=== PATIENT | female | born 1935 | race Caucasian/White ===

== ENCOUNTER → 2016-11-26 | Outpatient (CLI) | payer MEDICARE ==
--- NOTE | 2016-11-26 17:13 | MR ---
EXAMINATION TYPE: MR lumbar spine wo con DATE OF EXAM: 11/26/2016 COMPARISON: CT lumbar spine 03/05/2014, plain film 03/05/2014 graph HISTORY: low back pain x1 year, TECHNIQUE: Multiplanar, multisequence images of the lumbar spine were acquired. L1-L2: Normal disc appearance without desiccation. No herniation, protrusion or disc bulging. No ca nal stenosis is present. Foramina are patent bilaterally. L2-L3: Minimal posterior broad-based disc bulge causes slight anterior mass effect on the thecal sac. L3-L4: Minimal posterior broad-based disc bulge causes slight anterior mass effect on the thecal sac. There is some facet arthropathy with minimal encroachment on the lateral recesses. Scoliosis contrib utes to cause some right-sided foraminal encroachment. L4-L5: Listhesis is present, there is a minimal posterior broad-based disc bulge causing slight anter ior mass effect on the thecal sac. Listhesis contributes to cause some right-sided foraminal encroach ment also contributed by spinal curvature. Facet arthropathy with hypertrophy of ligamentum flavum ca uses some lateral recess stenosis. There is a trefoil appearance to the thecal sac. L5-S1: There is some facet arthropathy change present. No significant central canal stenosis, foramin al encroachment. Mild posterior broad-based disc bulge causes minimal anterior mass effect on the the delia sac. Lumbar segments are intact. No paraspinal masses are identified. Conus medullaris has a normal appe arance. Lumbar vertebral bodies show stable alignment, minimal anterolisthesis grade 1 L4-5. Loss of disc height and signal at the intervertebral levels is present with some associated endplate discogen ic marrow signal change. There is a spinal curvature. IMPRESSION: Degenerative disc disease and facet arthropathy. Scoliosis, multilevel foraminal encroachment.
== END | disposition home or self-care (01) ==
LOC: RADMRIMAIN 15:18
PROVIDERS: ATTEND Physician Assistant
DX: M51.36 Other intervertebral disc degeneration, lumbar region (principal); M41.86 Other forms of scoliosis, lumbar region; M46.06 Spinal enthesopathy, lumbar region
CPT/HCPCS: 72148

== ENCOUNTER 2017-07-04 19:27 | Inpatient (IN) | payer MEDICARE ==
[2017-07-04] MEDS ORDERED: RX INFO: IV CONTRAST WAS GIVEN 1 EACH MISC MISCELLANE PRN (19:40)
[2017-07-04] MEDS ORDERED: SODIUM CHLORIDE 0.9% 1,000 ML IV STA ×2 (19:40)
[2017-07-04 20:24] LABS: Glucose,Whole Blood 80 mg/dL (75-99)
[2017-07-04 20:25] LABS: Basophils % (A) 0 %; Eosinophils # (A) 0.2 k/uL (0-0.7); Eosinophils % (A) 2 %; HCT 33.9 % (34.0-46.0); HGB 10.8 gm/dL (11.4-16.0); Lymphocytes # (A) 1.4 k/uL (1.0-4.8); Lymphocytes % (A) 18 %; MCH 30.6 pg (25.0-35.0); MCHC 31.8 g/dL (31.0-37.0); MCV 96.3 fL (80.0-100.0); Mean Platelet Volume 8.7; Monocytes # (A) 0.7 k/uL (0-1.0); Monocytes % (A) 8 %; Neutrophils # (A) 5.8 k/uL (1.3-7.7); Neutrophils % (A) 71 %; Platelet Count 244 k/uL (150-450); RBC 3.52 m/uL (3.80-5.40); RDW 13.5 % (11.5-15.5); WBC 8.2 k/uL (3.8-10.6)
[2017-07-04 20:33] LABS: Partial Thromboplastin Time 22.6 sec (22.0-30.0); Prothrombin Time 10.2 sec (9.0-12.0)
--- NOTE | 2017-07-04 20:41 | ED ---
General Adult HPI - General Chief complaint: Neuro Symptoms/Deficit Stated complaint: memory problems Time Seen by Provider: 07/04/17 19:40 Source: patient, RN notes reviewed, old records reviewed Mode of arrival: ambulatory Limitations: no limitations - History of Present Illness Initial comments: This is an 82-year-old female the ER for evaluation of possible neurological event. Patient does have history of heart disease. Patient lay down for Nepro 4:00 woke up sometime later when she was is having some confusion she did awaken a panic which she occasionally does secondary to medical history stress. Patient was crying and emotional. She did feel lightheaded and dizzy. She became forgetful forgetful medications, although symptoms appear to have resolved at this time. Patient's awake alert no some she has she doesn't admit to having some anxiety and is tearful on exam - Related Data Home Medications Medication Instructions Recorded Confirmed Allopurinol 100 mg PO DAILY@1200 03/05/14 07/04/17 Aspirin 162 mg PO HS 03/05/14 07/04/17 Doxazosin Mesylate 4 mg PO DAILY 03/05/14 07/04/17 Omeprazole 40 mg PO DAILY PRN 03/05/14 07/04/17 Potassium Chloride [Klor-Con 20] 20 meq PO MOWEFR 03/05/14 07/04/17 LORazepam [Ativan] 1 mg PO DAILY PRN 09/23/14 07/04/17 Ascorbic Acid [Vitamin C] 500 mg PO DAILY@1200 09/24/14 07/04/17 Atorvastatin [Lipitor] 80 mg PO DAILY@1200 09/24/14 07/04/17 Cholecalciferol [Vitamin D3] 2,000 unit PO DAILY@119909/24/14 07/04/17 Ferrous Sulfate [Feosol] 0.5 tab PO DAILY 09/24/14 07/04/17 Nitroglycerin 0.2MG/Hr Patch 1 patch TRANSDERM Q24H PRN 09/24/14 07/04/17 [Nitro-Dur 0.2MG/Hr Patch] Furosemide [Lasix] 40 mg PO DAILY@1200 08/07/15 07/04/17 INSULIN LISPRO (HumaLOG) [humaLOG] 10 units SQ HS PRN 08/07/15 07/04/17 INSULIN LISPRO (HumaLOG) [humaLOG] 20 units SQ AC-TID 08/07/15 07/04/17 Losartan [Cozaar] 50 mg PO AC-SUPPER 08/07/15 07/04/17 Lidocaine HCl [Aspercreme] 76.5 gm TP DIRECTED PRN 08/27/15 07/04/17 Baclofen 5 mg PO HS 10/22/15 07/04/17 Acetaminophen [Tylenol 8 Hour] 650 mg PO HS 11/18/15 07/04/17 HYDROcodone/APAP 5-325MG [[place] 1 tab PO HS PRN 11/18/15 07/04/17 5-325] hydrALAZINE HCL [Apresoline] 100 mg PO BID 07/04/17 07/04/17 Allergies Allergy/AdvReac Type Severity Reaction Status Date / Time cortisone Allergy Rash/Hives Verified 07/04/17 20:00 Penicillins Allergy Rash/Hives Verified 07/04/17 20:00 Review of Systems ROS Statement: Those systems with pertinent positive or pertinent negative responses have been documented in the HPI. ROS Other: All systems not noted in ROS Statement are negative. Past Medical History Past Medical History: Coronary Artery Disease (CAD), Heart Failure, Diabetes Mellitus, GERD/Reflux, Hyperlipidemia, Hypertension, Myocardial Infarction (AL) , Osteoarthritis (OA), Pneumonia Additional Past Medical History / Comment(s): Hx Mitral regurgitation, anemia, reproductive problems when younger., NECK PAIN. Last Myocardial Infarction Date:: 08/2014 History of Any Multi-Drug Resistant Organisms: None Reported Past Surgical History: Cholecystectomy, Coronary Bypass/CABG, Hysterectomy Additional Past Surgical History / Comment(s): 8x D&C, CABG 7 Blockages, bilateral foot surgery to remove tumors Past Anesthesia/Blood Transfusion Reactions: No Reported Reaction Past Psychological History: No Psychological Hx Reported Smoking Status: Never smoker - Past Family History Mother Family Medical History: Cancer General Exam - General Exam Comments Initial Comments: NIH of 0 Limitations: no limitations General appearance: alert, in no apparent distress Head exam: Present: atraumatic, normocephalic, normal inspection Eye exam: Present: normal appearance, PERRL, EOMI. Absent: scleral icterus, conjunctival injection, periorbital swelling ENT exam: Present: normal exam, mucous membranes moist Neck exam: Present: normal inspection. Absent: tenderness, meningismus, lymphadenopathy Respiratory exam: Present: normal lung sounds bilaterally. Absent: respiratory distress, wheezes, rales, rhonchi, stridor Cardiovascular Exam: Present: regular rate, normal rhythm, normal heart sounds. Absent: systolic murmur, diastolic murmur, rubs, gallop, clicks GI/Abdominal exam: Present: soft, normal bowel sounds. Absent: distended, tenderness, guarding, rebound, rigid Extremities exam: Present: normal inspection, full ROM, normal capillary refill. Absent: tenderness, pedal edema, joint swelling, calf tenderness Back exam: Present: normal inspection Neurological exam: Present: alert, oriented X3, CN II-XII intact Psychiatric exam: Present: normal affect, normal mood Skin exam: Present: warm, dry, intact, normal color. Absent: rash Course Vital Signs 07/04/17 07/04/17 07/04/17 19:31 20:56 22:08 Temperature 98.7 F Pulse Rate 77 62 62 Respiratory 18 16 16 Rate Blood Pressure 157/67 157/67 196/93 O2 Sat by Pulse 98 99 98 Oximetry - Reevaluation(s) Reevaluation #1: 07/04/17 22:33 Patient with no worsening of symptoms EKG Findings - EKG Comments: EKG Findings:: EKG shows sinus bradycardia rate of 59, pO2 60, QRS 02, QTc 449 Medical Decision Making - Medical Decision Making Aortic female the ER for evaluation of strokelike symptoms, severe anxiety, atherosclerotic disease. Patient be admitted for continued neurological evaluation. Symptoms at this time are improved - Lab Data Result diagrams: 07/04/17 20:04 07/04/17 20:04 Lab Results 07/04/17 07/04/17 07/04/17 Range/Units 20:04 20:04 20:04 WBC 8.2 (3.8-10.6) k/uL RBC 3.52 L (3.80-5.40) m/uL Hgb 10.8 L (11.4-16.0) gm/dL Hct 33.9 L (34.0-46.0) % MCV 96.3 (80.0-100.0) fL MCH 30.6 (25.0-35.0) pg MCHC 31.8 (31.0-37.0) g/dL RDW 13.5 (11.5-15.5) % Plt Count 244 (150-450) k/uL Neutrophils % 71 % Lymphocytes % 18 % Monocytes % 8 % Eosinophils % 2 % Basophils % 0 % Neutrophils # 5.8 (1.3-7.7) k/uL Lymphocytes # 1.4 (1.0-4.8) k/uL Monocytes # 0.7 (0-1.0) k/uL Eosinophils # 0.2 (0-0.7) k/uL Basophils # 0.0 (0-0.2) k/uL PT (9.0-12.0) sec INR (<1.2) APTT (22.0-30.0) sec Sodium 145 (137-145) mmol/L Potassium 3.7 (3.5-5.1) mmol/L Chloride 108 H (98-107) mmol/L Carbon Dioxide 26 (22-30) mmol/L Anion Gap 11 mmol/L BUN 41 H (7-17) mg/dL Creatinine 1.30 H (0.52-1.04) mg/dL Est GFR (CKD-EPI)AfAm 45 (>60 ml/min/1.73 sqM) Est GFR (CKD-EPI)NonAf 39 (>60 ml/min/1.73 sqM) Glucose 55 L (74-99) mg/dL POC Glucose (mg/dL) (75-99) mg/dL POC Glu Bar Waiter/Waitress ID Calcium 9.5 (8.4-10.2) mg/dL Total Bilirubin 0.2 (0.2-1.3) mg/dL AST 16 (14-36) U/L ALT 18 (9-52) U/L Alkaline Phosphatase 71 (38-126) U/L Total Creatine Kinase 33 (30-135) U/L CK-MB (CK-2) 2.1 (0.0-2.4) ng/mL CK-MB (CK-2) Rel Index 6.4 Troponin I 0.023 (0.000-0.034) ng/mL Total Protein 5.6 L (6.3-8.2) g/dL Albumin 3.1 L (3.5-5.0) g/dL Urine Color Urine Appearance (Clear) Urine pH (5.0-8.0) Ur Specific Mittie (1.001-1.035) Urine Protein (Negative) Urine Glucose (UA) (Negative) Urine Ketones (Negative) Urine Blood (Negative) Urine Nitrite (Negative) Urine Bilirubin (Negative) Urine Urobilinogen (<2.0) mg/dL Ur Leukocyte Esterase (Negative) Urine WBC (0-5) /hpf Ur Squamous Epith Cells (0-4) /hpf Urine Bacteria (None) /hpf Hyaline Casts (0-2) /lpf Urine Mucus (None) /hpf 07/04/17 07/04/17 07/04/17 Range/Units 20:04 20:22 21:27 WBC (3.8-10.6) k/uL RBC (3.80-5.40) m/uL Hgb (11.4-16.0) gm/dL Hct (34.0-46.0) % MCV (80.0-100.0) fL MCH (25.0-35.0) pg MCHC (31.0-37.0) g/dL RDW (11.5-15.5) % Plt Count (150-450) k/uL Neutrophils % % Lymphocytes % % Monocytes % % Eosinophils % % Basophils % % Neutrophils # (1.3-7.7) k/uL Lymphocytes # (1.0-4.8) k/uL Monocytes # (0-1.0) k/uL Eosinophils # (0-0.7) k/uL Basophils # (0-0.2) k/uL PT 10.2 (9.0-12.0) sec INR 1.0 (<1.2) APTT 22.6 (22.0-30.0) sec Sodium (137-145) mmol/L Potassium (3.5-5.1) mmol/L Chloride (98-107) mmol/L Carbon Dioxide (22-30) mmol/L Anion Gap mmol/L BUN (7-17) mg/dL Creatinine (0.52-1.04) mg/dL Est GFR (CKD-EPI)AfAm (>60 ml/min/1.73 sqM) Est GFR (CKD-EPI)NonAf (>60 ml/min/1.73 sqM) Glucose (74-99) mg/dL POC Glucose (mg/dL) 80 (75-99) mg/dL POC Glu Bar Waiter/Waitress ID Nicolás Awan Calcium (8.4-10.2) mg/dL Total Bilirubin (0.2-1.3) mg/dL AST (14-36) U/L ALT (9-52) U/L Alkaline Phosphatase (38-126) U/L Total Creatine Kinase (30-135) U/L CK-MB (CK-2) (0.0-2.4) ng/mL CK-MB (CK-2) Rel Index Troponin I (0.000-0.034) ng/mL Total Protein (6.3-8.2) g/dL Albumin (3.5-5.0) g/dL Urine Color Yellow Urine Appearance Clear (Clear) Urine pH 5.0 (5.0-8.0) Ur Specific Mittie 1.009 (1.001-1.035) Urine Protein Negative (Negative) Urine Glucose (UA) Negative (Negative) Urine Ketones Negative (Negative) Urine Blood Negative (Negative) Urine Nitrite Negative (Negative) Urine Bilirubin Negative (Negative) Urine Urobilinogen <2.0 (<2.0) mg/dL Ur Leukocyte Esterase Small H (Negative) Urine WBC 4 (0-5) /hpf Ur Squamous Epith Cells <1 (0-4) /hpf Urine Bacteria Few H (None) /hpf Hyaline Casts 16 H (0-2) /lpf Urine Mucus Rare H (None) /hpf - Radiology Data Radiology results: report reviewed (CT CT significant for carotid stenosis), image reviewed Disposition Clinical Impression: Transient cerebral ischemia Disposition: ADMITTED IP TO THIS [facility] Condition: Fair Referrals: Leela Bill MD [Primary Care Provider] - 1-2 days
[2017-07-04 20:44] LABS: Albumin 3.1 g/dL (3.5-5.0); Calcium 9.5 mg/dL (8.4-10.2); Potassium 3.7 mmol/L (3.5-5.1); Total Bilirubin 0.2 mg/dL (0.2-1.3); Total Protein 5.6 g/dL (6.3-8.2)
--- NOTE | 2017-07-04 20:45 | CT ---
EXAMINATION: CT brain wo con for TPA DATE AND TIME: 07/04/2017 8:37 PM ORDERING PROVIDER: Elver Almanza DO CLINICAL INDICATION: Neuro Deficits TECHNIQUE: Standard departmental protocol. COMPARISON: 09/08/2011 DESCRIPTION: The calvarium is intact. There is no intracranial hemorrhage. There is no mass or mass e ffect. There is no definite new attenuation defect. Remainder of the intra-axial and extra-axial comp artment examination is unremarkable. The orbits are intact. IMPRESSION: NO ACUTE PROCESS.
--- NOTE | 2017-07-04 20:51 | XR ---
EXAMINATION: XR chest 2V DATE AND TIME: 07/04/2017 8:39 PM ORDERING PROVIDER: Elver Almanza DO CLINICAL INDICATION: altered mental status TECHNIQUE: PA and lateral COMPARISON: 09/25/2014 DESCRIPTION: Sternal sutures and mediastinal clips and EKG leads. [id number] enlarged cardiac silhouette. The overlying soft tissues are prominent. Lungs appear clear bilaterally. Pleural spaces negative. Bones and soft tissues are unremarkable. IMPRESSION: NO ACUTE PROCESS.
[2017-07-04 20:59] LABS: Creatine Kinase MB 2.1 ng/mL (0.0-2.4); Troponin I 0.023 ng/mL (0.000-0.034)
[2017-07-04 21:39] LABS: Appearance,Urine Clear (Clear); Bacteria,Urine Few /hpf; Bilirubin,Urine Negative (Negative); Blood,Urine Negative (Negative); Color,Urine Yellow; Glucose,Urine (UA) Negative (Negative); Hyaline Casts,Urine 16 /lpf (0-2); Ketones,Urine Negative (Negative); Leukocyte Esterase,Urine Small (Negative); Mucus,Urine Rare /hpf; Nitrite,Urine Negative (Negative); Protein,Urine Negative (Negative); Specific Gravity,Urine 1.009 (1.001-1.035); Squamous Epithelial Cell,Urine <1 /hpf (0-4); Urobilinogen,Urine <2.0 mg/dL (<2.0); WBC,Urine 4 /hpf (0-5)
--- NOTE | 2017-07-04 22:10 | CT ---
EXAMINATION TYPE: CT angio head neck DATE OF EXAM: 07/04/2017 HISTORY: Neuro deficits COMPARISON: NONE CT DLP: 307.1 mGycm. Automated Exposure Control for Dose Reduction was Utilized. TECHNIQUE: CTA scan of the neck is performed with IV Contrast, patient injected with 65 mL of Isovue 370, axial images are obtained, coronal and sagittal reformatted images are reviewed. Three-D recons tructed images are created on an independent workstation and reviewed. FINDINGS: The great vessels at the aortic arch are prominently tortuous but are widely patent. The bilateral ca rotid systems are tortuous throughout their cervical extent. There is a mid left CCA stenosis which a ppears to be just less than 50%. Bilateral carotid bulb stenoses are present, with proximal ICA steno sis appearing to be greater than 50% on the right and less than 50% on the left. The carotid siphon a re without significant stenoses bilaterally. Intracranial anterior circulation is without significant stenoses or other abnormalities. The bilateral vertebral arteries are widely patent throughout their cervical extent, and the intracra nial posterior circulation is widely patent. No intracranial findings. No focal soft tissue neck findings. No upper thoracic incidental findings. No focal skeletal findings. R ICA hemodynamic significant stenosis. IMPRESSION: 1. PROXIMAL RYAN HEMODYNAMICALLY SIGNIFICANT STENOSIS. 2. TANDEM LEFT CAROTID LESIONS, WITH MID CCA AND PROXIMAL ICA STENOSES.
[2017-07-04] MEDS ORDERED: LABETALOL 5 MG/ML VIAL MDV IVP STA (22:17)
[2017-07-04] MEDS ORDERED: LORazepam 2 MG/ML INJ IV STA (22:17)
[2017-07-04] MEDS ORDERED: ASPIRIN 325 MG TAB PO STA (22:31)
[2017-07-04] MEDS: SODIUM CHLORIDE 0.9% 1,000 ML IV SCH (23:32)
[2017-07-05 06:20] LABS: Glucose,Whole Blood 79 mg/dL (75-99)
[2017-07-05] MEDS ORDERED: PANTOPRAZOLE 40 MG TABLET PO PRN (06:50)
[2017-07-05] MEDS ORDERED: METHYL SALICYLATE/MENTHOL CREAM 5 OZ TOPICAL PRN (06:50)
[2017-07-05] MEDS ORDERED: HYDROcodone/APAP 5-325MG 1 EACH TAB PO PRN (06:50)
[2017-07-05 07:20] LABS: Cholesterol 127 mg/dL (<200); HDL Cholesterol 43 mg/dL (40-60); LDL Cholesterol,Calculated 56 mg/dL (0-99); Triglycerides 139 mg/dL (<150)
[2017-07-05 08:11] VITALS: BMI 35.5
[2017-07-05] MEDS: POTASSIUM CHLORIDE ER 20 MEQ TAB.ER PO SCH (08:29)
[2017-07-05] MEDS: ASPIRIN 325 MG TAB PO SCH (08:29)
[2017-07-05] MEDS: DOXAZOSIN 4 MG TAB PO SCH (08:29)
[2017-07-05] MEDS: INSULIN ASPART 100 UNIT/ML 1 ML 10 ML VIAL SQ SCH ×4 (08:29→21:12)
[2017-07-05] MEDS: hydrALAZINE HCL 50 MG TAB PO SCH ×2 (08:30→20:23)
[2017-07-05] MEDS: FERROUS SULFATE 325 MG TAB PO SCH (08:30)
[2017-07-05] MEDS: LORazepam 2 MG/ML INJ IV PRN (11:10)
[2017-07-05 11:29] LABS: Glucose,Whole Blood 174 mg/dL (75-99)
[2017-07-05] MEDS: FUROSEMIDE 40 MG TAB PO SCH (11:42)
[2017-07-05] MEDS: ALLOPURINOL 100 MG TAB PO SCH (11:42)
[2017-07-05] MEDS: CHOLECALCIFEROL 1,000 UNIT TAB PO SCH (11:42)
[2017-07-05] MEDS: ATORVASTATIN 80 MG TAB PO SCH (11:42)
[2017-07-05 17:14] LABS: Glucose,Whole Blood 167 mg/dL (75-99)
[2017-07-05] MEDS: LOSARTAN 50 MG TAB PO SCH (17:21)
--- NOTE | 2017-07-05 18:18 | P.HPIM ---
History of Present Illness H&P Date: 07/05/17 82 years old right-handed female with past medical history of coronary artery disease status post CABG in 2012 following a myocardial infarction, history of type 2 diabetes on insulin, hyperlipidemia, hypertension, history of cervical stenosis, back pain presents in with episode of confusion and disorientation that'll lasted few hours starting yesterday morning. According to the patient, she was trying to clean her house and was working for more than 8 hours in her closet and had some neck pain due to constant movement of her neck and hand. She was disoriented in the morning when she was unable to draw up the insulin or her diabetes in the morning. Since that symptoms lasted few hours patient has been insisted her to come to the ER. She denies any confusion since admission. She denies any motor or sensory deficit or any history of seizures. Patient denies any previous episodes of this before. Full she currently takes 160 mg of aspirin and Lipitor [address] brain was negative for any acute abnormality. Patient underwent CTA of the neck which suggested some mid left CCA stenosis less than 50% with proximal ICA stenosis greater than 50% on the right and less than 50% on the left. Vascular surgery consult placed. Continue patient on aspirin and Lipitor. EKG suggested sinus bradycardia with first-degree AV block. ST or T-wave abnormality suggesting inferior lateral ischemia. No previous EKG to compare. Labs suggestive of hemoglobin of 10.8, B UN 41, creatinine 1.3 with 16 hyaline cast. She received a liter of IV fluid. Lactic acid ordered. Echo ordered Review of Systems Constitutional: Denies chills, Denies fever, Denies lethargy, Denies malaise, Denies poor appetite, Denies weakness, Denies weight loss Eyes: denies decreased vision, denies diplopia, denies discharge, denies pain Ears: deny: decreased hearing Ears, nose, mouth and throat: Denies dental pain, Denies headache, Denies nasal discharge, Denies nose pain Cardiovascular: Denies chest pain, Denies decreased exercise tolerance, Denies edema, Denies high blood pressure, Denies irregular heart beat, Denies palpitations, Denies paroxysmal nocturnal dyspnea, Denies rapid heart beat, Denies shortness of breath Respiratory: Denies congestion, Denies cough, Denies cough with sputum, Denies dyspnea, Denies home oxygen, Denies wheezing Gastrointestinal: Denies abdominal pain, Denies change in bowel habits, Denies coffee ground emesis, Denies early satiety, Denies excessive gas, Denies heartburn, Denies hematemesis, Denies hematochezia, Denies loss of appetite, Denies nausea, Denies vomiting Genitourinary: Denies dysuria, Denies flank pain, Denies kidney stones, Denies menorrhagia, Denies urgency, Denies urinary frequency Musculoskeletal: Denies gait dysfunction, Denies limitation of motion, Denies morning stiffness, Denies muscle cramps Integumentary: Denies rash, Denies wounds, Denies brittle nails, Denies change in hair/nails, Denies darkening of skin Neurological: Denies balance difficulties, Denies change in speech, Denies double vision, Denies gait dysfunction, Denies loss of vision, Denies motor disturbance, Denies numbness, Denies paralysis, Denies paresthesias, Denies seizures Psychiatric: Denies anxiety, Denies depression Endocrine: Denies excessive sweating, Denies excessive thirst, Denies high blood sugars, Denies palpitations Hematologic/Lymphatic: Denies easy bruising, Denies lymphadenopathy Past Medical History Past Medical History: Coronary Artery Disease (CAD), Heart Failure, Diabetes Mellitus, GERD/Reflux, Hyperlipidemia, Hypertension, Myocardial Infarction (OK) , Osteoarthritis (OA), Pneumonia Additional Past Medical History / Comment(s): Hx Mitral regurgitation, anemia, reproductive problems when younger., NECK PAIN. Last Myocardial Infarction Date:: 08/2014 History of Any Multi-Drug Resistant Organisms: None Reported Past Surgical History: Cholecystectomy, Coronary Bypass/CABG, Hysterectomy Additional Past Surgical History / Comment(s): 8x D&C, CABG 7 Blockages, bilateral foot surgery to remove tumors Past Anesthesia/Blood Transfusion Reactions: No Reported Reaction Past Psychological History: No Psychological Hx Reported Smoking Status: Never smoker Past Alcohol Use History: Occasional Past Drug Use History: None Reported - Past Family History Mother Family Medical History: Cancer, Diabetes Mellitus Father Family Medical History: Congestive Heart Failure (CHF) Brother(s) Family Medical History: Cancer (Patient is lives with her , functionally active denies any need a walker or assistance) Medications and Allergies Home Medications Medication Instructions Recorded Confirmed Type Allopurinol 100 mg PO DAILY@1200 03/05/14 07/04/17 History Aspirin 162 mg PO HS 03/05/14 07/04/17 History Doxazosin Mesylate 4 mg PO DAILY 03/05/14 07/04/17 History Omeprazole 40 mg PO DAILY PRN 03/05/14 07/04/17 History Potassium Chloride [Klor-Con 20] 20 meq PO MOWEFR 03/05/14 07/04/17 History LORazepam [Ativan] 1 mg PO DAILY PRN 09/23/14 07/04/17 History Ascorbic Acid [Vitamin C] 500 mg PO DAILY@1200 09/24/14 07/04/17 History Atorvastatin [Lipitor] 80 mg PO DAILY@1200 09/24/14 07/04/17 History Cholecalciferol [Vitamin D3] 2,000 unit PO DAILY@1200 09/24/14 07/04/17 History Ferrous Sulfate [Feosol] 0.5 tab PO DAILY 09/24/14 07/04/17 History Nitroglycerin 0.2MG/Hr Patch 1 patch TRANSDERM Q24H PRN 09/24/14 07/04/17 History [Nitro-Dur 0.2MG/Hr Patch] Furosemide [Lasix] 40 mg PO DAILY@1200 08/07/15 07/04/17 History INSULIN LISPRO (HumaLOG) [humaLOG] 10 units SQ HS PRN 08/07/15 07/04/17 History INSULIN LISPRO (HumaLOG) [humaLOG] 20 units SQ AC-TID 08/07/15 07/04/17 History Losartan [Cozaar] 50 mg PO AC-SUPPER 08/07/15 07/04/17 History Lidocaine HCl [Aspercreme] 76.5 gm TP DIRECTED PRN 08/27/15 07/04/17 History Baclofen 5 mg PO HS 10/22/15 07/04/17 History Acetaminophen [Tylenol 8 Hour] 650 mg PO HS 11/18/15 07/04/17 History HYDROcodone/APAP 5-325MG [[place] 1 tab PO HS PRN 11/18/15 07/04/17 History 5-325] hydrALAZINE HCL [Apresoline] 100 mg PO BID 07/04/17 07/04/17 History Allergies Allergy/AdvReac Type Severity Reaction Status Date / Time cortisone Allergy Rash/Hives Verified 07/04/17 20:00 Penicillins Allergy Rash/Hives Verified 07/04/17 20:00 Physical Exam Vitals: Vital Signs Temp Pulse Pulse Resp BP BP Pulse Ox 07/05/17 17:05 62 16 201/72 97 07/05/17 15:33 97.2 F L 56 L 16 198/69 96 07/05/17 14:47 164/70 07/05/17 11:13 59 L 17 172/70 98 07/05/17 08:08 98 F 60 17 197/74 97 07/05/17 08:00 60 17 07/05/17 06:14 59 L 18 07/05/17 06:05 97.3 F L 59 L 18 194/81 95 07/05/17 02:28 56 L 18 175/74 07/05/17 00:20 73 18 179/78 96 07/04/17 22:08 62 16 196/93 98 07/04/17 20:56 62 16 157/67 99 07/04/17 19:31 98.7 F 77 18 157/67 98 Intake and Output 07/05/17 07/05/17 07/05/17 06:59 14:59 22:59 Intake Total 160 298 Balance 160 298 Intake: IV 160 Sodium Chloride 0.9% 1, 160 000 ml @ 20 mls/hr IV . Q24H [facility] Rx#:[id number] Oral 298 Other: Voiding Method Toilet Toilet Toilet # Voids 2 Weight 82.554 kg - Constitutional General appearance: cooperative, no acute distress, obese - EENT Eyes: anicteric sclerae, PERRLA, normal appearance ENT: hearing grossly normal - Neck Neck: no lymphadenopathy, normal ROM, no other, no rigidity, no stridor, no thyromegaly - Respiratory Respiratory: bilateral: CTA, negative: diminished, dullness, rales, rhonchi - Cardiovascular Rhythm: regular Heart sounds: normal: S1, S2 Abnormal Heart Sounds: 3+ systolic murmur, no diastolic murmur, no rub, no S3 Gallop, no S4 Gallop, no click, no other - Gastrointestinal General gastrointestinal: normal bowel sounds, soft - Integumentary Integumentary: no rash - Neurologic Neurologic: CNII-XII intact - Musculoskeletal Musculoskeletal: gait normal, strength equal bilaterally - Psychiatric Psychiatric: A&O x's 3, appropriate affect Results CBC & Chem 7: 07/04/17 20:04 07/04/17 20:04 Labs: Abnormal Lab Results - Last 24 Hours (Table) 07/04/17 07/04/17 07/04/17 Range/Units 20:04 20:04 21:27 RBC 3.52 L (3.80-5.40) m/uL Hgb 10.8 L (11.4-16.0) gm/dL Hct 33.9 L (34.0-46.0) % Chloride 108 H (98-107) mmol/L BUN 41 H (7-17) mg/dL Creatinine 1.30 H (0.52-1.04) mg/dL Glucose 55 L (74-99) mg/dL POC Glucose (mg/dL) (75-99) mg/dL Total Protein 5.6 L (6.3-8.2) g/dL Albumin 3.1 L (3.5-5.0) g/dL Ur Leukocyte Esterase Small H (Negative) Urine Bacteria Few H (None) /hpf Hyaline Casts 16 H (0-2) /lpf Urine Mucus Rare H (None) /hpf 07/05/17 07/05/17 Range/Units 11:17 17:09 RBC (3.80-5.40) m/uL Hgb (11.4-16.0) gm/dL Hct (34.0-46.0) % Chloride (98-107) mmol/L BUN (7-17) mg/dL Creatinine (0.52-1.04) mg/dL Glucose (74-99) mg/dL POC Glucose (mg/dL) 174 H 167 H (75-99) mg/dL Total Protein (6.3-8.2) g/dL Albumin (3.5-5.0) g/dL Ur Leukocyte Esterase (Negative) Urine Bacteria (None) /hpf Hyaline Casts (0-2) /lpf Urine Mucus (None) /hpf Thrombosis Risk Factor Assmnt - DVT/VTE Prophylaxis DVT/VTE Prophylaxis: Pharmacologic Prophylaxis ordered - Choose All That Apply Each Risk Factor Represents 3 Points: Age 75 years or older Thrombosis Risk Factor Assessment Total Risk Factor Score: 3 Thrombosis Risk Factor Assessment Level: Moderate Risk Assessment and Plan Plan: 1 acute episode of confusion and disorientation likely secondary to TIA other differential includes dehydration, vasovagal episode or exacerbation of her cervical stenosis. Continue aspirin and Lipitor 80 mg daily.Vascular surgery consult for carotid stenosis. acute respiratory failure: Secondary to pulmonary edema, pneumonia, COPD, acute congestive heart failure exacerbation and possible non-Q-wave [place]. 2. Acute kidney injury on chronic kidney disease with baseline creatinine between 1-1.3. Repeat CMP tomorrow status post 1000 IV fluid 3 systolic dysfunction congestive heart failure not in exacerbation continue losartan, Lasix 40 daily, atorvastatin, aspirin 4 possible non-Q-wave OK: EKG suggestive of inferior lateral myocardial infarction. Cardiology consult. Troponin ordered Echocardiogram ordered 5 Iron deficiency anemia iron studies ordered. Due to increasing B UN concern for GI bleed but patient denies any black stools. She takes iron sulfate, stool test might not be a great. We'll order fecal Test 6 type 2 diabetes on insulin: Patient was previously on 7030 insulin. Currently taking insulin lispro 3 times a day 20 units. In the hospitalizations only requiring 2 units with meals. Patient needs reinforcement and diabetic education and may benefit from continuous glucose monitoring as patient is having many hypoglycemic episodes during the hospital stay continue insulin sliding scale while in the hospital. 7 hypertension: Well controlled on metoprolol 25 mg twice a day losartan 25 mg daily and Cardura 4 mg a day continue amlodipine 5 mg a day as well and hydralazine 100 mg 3 times a day. 8 GI prophylaxis/GERD: [place] patient on omeprazole 20 mg daily. 9 hyperlipidemia: Still on Lipitor 80 mg daily. DVT prophylaxis Heparin every 12 CODE STATUS: Full code.
--- NOTE | 2017-07-05 18:49 | P.CNNES ---
History of Present Illness Consult date: 07/05/17 Reason for Consult: Patient admitted with dizziness and acute confusion. History of Present Illness: This patient is a 82-year-old right-handed white female was in her usual state of health until yesterday evening. Patient states she was attempting to use her insulin which she takes on a regular basis for treatment of her diabetes and apparently had a great deal of difficulty concentrating on how to load her syringe. Apparently she normally takes her insulin on a regular basis but yesterday became extremely confused and disoriented. She apparently knew she had to take her insulin but could not conceive how to draw up the insulin in the amount of insulin she was to be taking. She was able to contact her who was nearby who came to assist her. Apparently she was very distraught and was just not feeling well. She complained of generalized weakness and fatigue. Her decided to bring her to the emergency room yesterday for further evaluation. She was seen in the ER by Dr. Almanza. She was evaluated in the ER and appeared to be very tearful and anxious. Her NIH stroke scale was noted to be 0. She was sent for a computed tomography scan of the brain which revealed no acute abnormalities. She was also sent for a CTA angiogram of the head and neck which revealed proximal right ICA stenosis. This was felt to be significant. There was also tandem left carotid artery lesions in the mid common carotid and proximal left internal carotid artery. The patient states she has no previous history of any significant carotid artery disease. She states her total cholesterol has been treated aggressively by her primary care physician. She is currently taking Lipitor 80 mg daily. She has no previous history of TIA or stroke but does take daily 2 baby aspirins at night. Patient does have history of severe cervical stenosis and does undergo pain injections on a regular basis. She states this has not been of much help. She does have history of underlying anxiety disorder as well as possible panic attacks. She denies any new symptoms since admission to the hospital but her clinical history suggests possibility of TIA. Patient denies previous history of stroke. As noted her CAT scan of the brain came back negative for any acute abnormalities. We have recommended the patient to be admitted for full stroke evaluation as well as a vascular surgery consultation. She is to continue on aspirin therapy for secondary stroke prevention. Her overall prognosis at this time remains guarded. Review of Systems Constitutional: Denies chills, Denies fever Eyes: denies blurred vision, denies pain Ears, nose, mouth and throat: Denies headache, Denies sore throat Cardiovascular: Denies chest pain, Denies shortness of breath Respiratory: Denies cough Gastrointestinal: Denies abdominal pain, Denies diarrhea, Denies nausea, Denies vomiting Genitourinary: Denies dysuria, Denies hematuria Musculoskeletal: Denies myalgias Integumentary: Denies pruritus, Denies rash Neurological: Reports confusion, Reports memory loss, Reports vertigo, Denies numbness, Denies weakness Psychiatric: Denies anxiety, Denies depression Endocrine: Denies fatigue, Denies weight change Past Medical History Past Medical History: Coronary Artery Disease (CAD), Heart Failure, Diabetes Mellitus, GERD/Reflux, Hyperlipidemia, Hypertension, Myocardial Infarction ([place]) , Osteoarthritis (OA), Pneumonia Additional Past Medical History / Comment(s): Hx Mitral regurgitation, anemia, reproductive problems when younger., NECK PAIN. Last Myocardial Infarction Date:: 08/2014 History of Any Multi-Drug Resistant Organisms: None Reported Past Surgical History: Cholecystectomy, Coronary Bypass/CABG, Hysterectomy Additional Past Surgical History / Comment(s): 8x D&C, CABG 7 Blockages, bilateral foot surgery to remove tumors Past Anesthesia/Blood Transfusion Reactions: No Reported Reaction Past Psychological History: No Psychological Hx Reported Smoking Status: Never smoker Past Alcohol Use History: Occasional Past Drug Use History: None Reported - Past Family History Mother Family Medical History: Cancer Medications and Allergies Home Medications Medication Instructions Recorded Confirmed Type Allopurinol 100 mg PO DAILY@1200 03/05/14 07/04/17 History Aspirin 162 mg PO HS 03/05/14 07/04/17 History Doxazosin Mesylate 4 mg PO DAILY 03/05/14 07/04/17 History Omeprazole 40 mg PO DAILY PRN 03/05/14 07/04/17 History Potassium Chloride [Klor-Con 20] 20 meq PO MOWEFR 03/05/14 07/04/17 History LORazepam [Ativan] 1 mg PO DAILY PRN 09/23/14 07/04/17 History Ascorbic Acid [Vitamin C] 500 mg PO DAILY@1200 09/24/14 07/04/17 History Atorvastatin [Lipitor] 80 mg PO DAILY@1200 09/24/14 07/04/17 History Cholecalciferol [Vitamin D3] 2,000 unit PO DAILY@1200 09/24/14 07/04/17 History Ferrous Sulfate [Feosol] 0.5 tab PO DAILY 09/24/14 07/04/17 History Nitroglycerin 0.2MG/Hr Patch 1 patch TRANSDERM Q24H PRN 09/24/14 07/04/17 History [Nitro-Dur 0.2MG/Hr Patch] Furosemide [Lasix] 40 mg PO DAILY@1200 08/07/15 07/04/17 History INSULIN LISPRO (HumaLOG) [humaLOG] 10 units SQ HS PRN 08/07/15 07/04/17 History INSULIN LISPRO (HumaLOG) [humaLOG] 20 units SQ AC-TID 08/07/15 07/04/17 History Losartan [Cozaar] 50 mg PO AC-SUPPER 08/07/15 07/04/17 History Lidocaine HCl [Aspercreme] 76.5 gm TP DIRECTED PRN 08/27/15 07/04/17 History Baclofen 5 mg PO HS 10/22/15 07/04/17 History Acetaminophen [Tylenol 8 Hour] 650 mg PO HS 11/18/15 07/04/17 History HYDROcodone/APAP 5-325MG [[employer] 1 tab PO HS PRN 11/18/15 07/04/17 History 5-325] hydrALAZINE HCL [Apresoline] 100 mg PO BID 07/04/17 07/04/17 History Allergies Allergy/AdvReac Type Severity Reaction Status Date / Time cortisone Allergy Rash/Hives Verified 07/04/17 20:00 Penicillins Allergy Rash/Hives Verified 07/04/17 20:00 Physical Examination - Vital Signs Vital Signs: Vital Signs Temp Pulse Pulse Resp BP BP Pulse Ox 07/05/17 17:05 62 16 201/72 97 07/05/17 15:33 97.2 F L 56 L 16 198/69 96 07/05/17 14:47 164/70 07/05/17 11:13 59 L 17 172/70 98 07/05/17 08:08 98 F 60 17 197/74 97 07/05/17 08:00 60 17 07/05/17 06:14 59 L 18 07/05/17 06:05 97.3 F L 59 L 18 194/81 95 07/05/17 02:28 56 L 18 175/74 07/05/17 00:20 73 18 179/78 96 07/04/17 22:08 62 16 196/93 98 07/04/17 20:56 62 16 157/67 99 07/04/17 19:31 98.7 F 77 18 157/67 98 Intake and Output 07/05/17 07/05/17 07/05/17 06:59 14:59 22:59 Intake Total 160 298 360 Balance 160 298 360 Intake: IV 160 Sodium Chloride 0.9% 1, 160 000 ml @ 20 mls/hr IV . Q24H [facility] Rx#:[id number] Oral 298 360 Other: Voiding Method Toilet Toilet Toilet # Voids 2 Weight 82.554 kg - Constitutional General appearance: average body habitus, cooperative - EENT EENT: PERRL, mucous membranes moist - Respiratory Respiratory: lungs clear, normal breath sounds - Cardiovascular Cardiovascular: regular rate, normal S1, normal S2 Extremities: no peripheral edema bilaterally - Gastrointestinal Gastrointestinal: normoactive bowel sounds - Integumentary Integumentary: normal - Neurologic Cranial nerve examination: PERRL, EOMI, VFF, V1/V2/V3 grossly intact, face symmetric, tongue midline, intact gag reflex, intact corneal reflex, normal palatal elevation Speech examination: intact Sensorimotor examination: intact Motor examination - right side: 4/5: biceps, triceps, wrist flexion, wrist extension, mds rn, hip flexors, knee extensors, dorsiflexion, toe extension (EHL) , plantarflexion Motor examination - left side: 4/5: biceps, triceps, wrist flexion, wrist extension, mds rn, hip flexors, knee extensors, dorsiflexion, toe extension (EHL) , plantarflexion Detailed sensory examination: intact Reflex and gait examination: intact Reflexes: 1+: ankle, bicep, knee, tricep - Musculoskeletal Musculoskeletal: no pain - Psychiatric Psychiatric: mood/affect appropriate, cooperative Results - Laboratory Findings CBC and BMP: 07/04/17 20:04 07/04/17 20:04 Abnormal Lab Findings: Abnormal Labs 07/04/17 07/04/17 07/04/17 20:04 20:04 21:27 RBC 3.52 L Hgb 10.8 L Hct 33.9 L Chloride 108 H BUN 41 H Creatinine 1.30 H Glucose 55 L POC Glucose (mg/dL) Total Protein 5.6 L Albumin 3.1 L Ur Leukocyte Esterase Small H Urine Bacteria Few H Hyaline Casts 16 H Urine Mucus Rare H 07/05/17 07/05/17 11:17 17:09 RBC Hgb Hct Chloride BUN Creatinine Glucose POC Glucose (mg/dL) 174 H 167 H Total Protein Albumin Ur Leukocyte Esterase Urine Bacteria Hyaline Casts Urine Mucus Assessment and Plan (1) Transient cerebral ischemia Current Visit: Yes Status: Acute Code(s): G45.9 - TRANSIENT CEREBRAL ISCHEMIC ATTACK, UNSPECIFIED SNOMED Code(s): 820429475 (2) Carotid artery stenosis Current Visit: Yes Status: Acute Code(s): I65.29 - OCCLUSION AND STENOSIS OF UNSPECIFIED CAROTID ARTERY SNOMED Code(s): 08093715 (3) Anxiety disorder Current Visit: Yes Status: Acute Code(s): F41.9 - ANXIETY DISORDER, UNSPECIFIED SNOMED Code(s): 270236049 (4) Hyperlipidemia Current Visit: Yes Status: Acute Code(s): E78.5 - HYPERLIPIDEMIA, UNSPECIFIED SNOMED Code(s): 99078236 Plan: This patient is a 82-year-old female being evaluated for episode of dizziness and acute confusion. Patient was trying to take her insulin yesterday as usual and became suddenly very confused and disoriented. She is unable to draw up her insulin by herself which she normally does on a regular basis. She was able to get help from her . She just did not feel well and complained of generalized weakness and was very emotional. She was brought into the emergency room and was seen in the ER yesterday by Dr. Almanza. She underwent a computed tomography scan of the brain and CTA angiogram of the head and neck the results which are noted above. Patient states she has no previous history of similar episode of confusion. Her CAT scan of the brain was negative for any acute findings. CTA angiogram of the head and neck did reveal significant right carotid artery stenosis. There was also left ICA stenosis noted as well. Clinical history suggests possibility of acute TIA producing her symptoms. We have recommended a vascular surgery consultation for the patient. She is to continue on 2 aspirin daily for secondary stroke prevention. We will continue close neurological follow-up for the patient. Recommend to check her hemoglobin A1c and total cholesterol as risk factors for TIA and stroke. Case was discussed at length with the patient today bedside. All of her questions answered. She is aware of our recommendations and current treatment plan. We will continue close neurological follow-up for the patient during this admission. Time with Patient: Greater than 30
[2017-07-05] MEDS: ACETAMINOPHEN TAB 325 MG TAB PO SCH (20:23)
[2017-07-05 21:03] LABS: Glucose,Whole Blood 197 mg/dL (75-99)
[2017-07-05] MEDS: SODIUM CHLORIDE 0.9% 1,000 ML IV SCH (23:07)
[2017-07-06 04:11] LABS: Cholesterol 111 mg/dL (<200); HDL Cholesterol 43 mg/dL (40-60); LDL Cholesterol,Calculated 49 mg/dL (0-99); Triglycerides 96 mg/dL (<150)
[2017-07-06 07:01] LABS: Glucose,Whole Blood 155 mg/dL (75-99)
[2017-07-06] MEDS ORDERED: NITROGLYCERIN SL TABS 0.4 MG TAB SUBLINGUAL ONE (07:52)
[2017-07-06] MEDS ORDERED: amLODIPine 5 MG TAB PO STA (08:03)
[2017-07-06] MEDS: LORazepam 2 MG/ML INJ IV PRN (08:13)
[2017-07-06] MEDS: SODIUM CHLORIDE 0.9% 1,000 ML IV SCH (08:14)
[2017-07-06] MEDS: hydrALAZINE HCL 50 MG TAB PO SCH ×3 (08:23→20:27)
[2017-07-06] MEDS: DOXAZOSIN 4 MG TAB PO SCH (08:23)
[2017-07-06] MEDS: FERROUS SULFATE 325 MG TAB PO SCH (08:23)
[2017-07-06] MEDS: ASPIRIN 325 MG TAB PO SCH (08:23)
[2017-07-06] MEDS: INSULIN ASPART 100 UNIT/ML 1 ML 10 ML VIAL SQ SCH ×4 (10:58→20:35)
[2017-07-06] MEDS ORDERED: cloNIDine HCL 0.1 MG TAB PO SCH (11:00)
[2017-07-06 11:17] LABS: Iron Saturation 20.46 (12.00-45.00)
--- NOTE | 2017-07-06 11:29 | ECHOF ---
Referral Reason:tia MEASUREMENTS -------- HEIGHT: 152.4 cm WEIGHT: 83.5 kg BP: 142/62 IVSd: 1.6 cm (0.6 - 1.1) LVIDd: 3.7 cm (3.9 - 5.3) LVPWd: 1.9 cm (0.6 - 1.1) IVSs: 2.8 cm LVIDs: 2.0 cm LVPWs: 2.2 cm LAESV Index (A-L): 67.07 ml/m Ao Diam: 3.3 cm (2.0 - 3.7) AV Cusp: 1.4 cm (1.5 - 2.6) LA Diam: 4.0 cm (2.7 - 3.8) MV EXCURSION: 15.271 mm (> 18.000) MV EF SLOPE: 33 mm/s (70 - 150) EPSS: 0.3 cm MV E Paco: 1.52 m/s MV DecT: 272 ms MV A Paco: 1.11 m/s MV E/A Ratio: 1.37 AV maxP.95 mmHg AV meanP.29 mmHg RAP: 5.00 mmHg RVSP: 21.01 mmHg FINDINGS -------- Sinus rhythm. This was a technically good study. The left ventricular size is normal. There is severe concentric left ventricular hypertrophy. Ove rall left ventricular systolic function is normal with, an EF between 55 - 60 %. The right ventricle is normal in size and function. LA is severely dilated >40 ml/m2 The right atrium is normal in size. Aortic valve is trileaflet and is mildly thickened. There is mild aortic stenosis present. Peak/m kit gradient across the Aortic Valve is 23.95mmHg / 13.29mmHg. The mitral valve leaflets are mildly thickened. Moderate mitral annular calcification present. Mi ld mitral regurgitation is present. The peak and mean MV gradients are 13.18mmHg 4.68mmHg as measu red by doppler. Mild mitral stenosis. There is moderate thickening of the posterior mitral valve leaflet. Moderate tricuspid regurgitation present. The right ventricular systolic pressure, as measured by D oppler, is 21.01mmHg. Pulmonic valve appears structurally normal. The aortic root size is normal. Normal inferior vena cava with normal inspiratory collapse consistent with estimated right atrial pre ssure of 5 mmHg. There is a trivial pericardial effusion present. CONCLUSIONS -------- 1. Sinus rhythm. 2. This was a technically good study. 3. The left ventricular size is normal. 4. There is severe concentric left ventricular hypertrophy. 5. Overall left ventricular systolic function is normal with, an EF between 55 - 60 %. 6. The right ventricle is normal in size and function. 7. LA is severely dilated >40 ml/m2 8. The right atrium is normal in size. 9. Aortic valve is trileaflet and is mildly thickened. 10. There is mild aortic stenosis present. 11. Peak/mean gradient across the Aortic Valve is 23.95mmHg / 13.29mmHg. 12. The mitral valve leaflets are mildly thickened. 13. Moderate mitral annular calcification present. 14. Mild mitral regurgitation is present. 15. The peak and mean MV gradients are 13.18mmHg 4.68mmHg as measured by doppler. 16. Mild mitral stenosis. 17. There is moderate thickening of the posterior mitral valve leaflet. 18. Moderate tricuspid regurgitation present. 19. The right ventricular systolic pressure, as measured by Doppler, is 21.01mmHg. 20. Pulmonic valve appears structurally normal. 21. The aortic root size is normal. 22. Normal inferior vena cava with normal inspiratory collapse consistent with estimated right atrial pressure of 5 mmHg. 23. There is a trivial pericardial effusion present. [employer] LEVEL [employer] DEVELOPER: Kasandra Francois RDCS
[2017-07-06] MEDS: ATORVASTATIN 80 MG TAB PO SCH (11:34)
[2017-07-06] MEDS: ALLOPURINOL 100 MG TAB PO SCH (11:34)
[2017-07-06] MEDS: CHOLECALCIFEROL 1,000 UNIT TAB PO SCH (11:35)
[2017-07-06] MEDS: FUROSEMIDE 40 MG TAB PO SCH (11:35)
[2017-07-06 11:55] LABS: Hemoglobin A1C 6.3 % (4.0-6.0)
[2017-07-06 12:09] LABS: Glucose,Whole Blood 188 mg/dL (75-99)
[2017-07-06] MEDS ORDERED: cloNIDine HCL 0.1 MG TAB PO STA (12:34)
--- NOTE | 2017-07-06 12:43 | CONS ---
CONSULTATION This is 82-year-old elderly lady with a history of hypertension, type 2 diabetes, hyperlipidemia, CAD, prior bypass surgery in year 2011. The details of the bypass surgery are not available to me. The cardiac cath from [address] Sim suggests that patient has a 90% stenosis in a dominant RCA as well as a circumflex with a 60% to 70% stenosis and the LAD had a 95% stenosis, a long lesion in the proximal and mid section and also involved the origins of the diagonal branches. Patient did have surgery and details are she had a HOLGUIN to LAD and vein graft to the diagonal and another vein graft to the RCA branch. She also had another separate graft to the circumflex marginal as well. She came into the hospital mainly because of an episode of confusion. Apparently last evening around 5:30 or so, she was trying to take insulin, could not get her blood drawn. She felt confused, shaky and her tried to help, but he also was not able to do that and then she came into the hospital. Her blood sugar was 55. She was confused and disoriented. These symptoms have resolved. She did not have any motor deficits or any speech deficits. It appears the entire episode with a blood sugar of 55 on arrival to the emergency room suggests hypoglycemia as the overriding feature. However, a diagnosis of TIA has been entertained. She also had elevated blood pressure when she came in. A combination of accelerated hypertension and hypoglycemia may have caused her symptoms of confusion, which have been resolved since then. She has no motor deficit. She is resting comfortably. Answers questions appropriately. Blood sugar this morning is about 105 or so. She is resting comfortably without symptoms. I was asked to see her because of the elevated troponin. She did complain yesterday of some chest pressure and shortness of breath. She is pain free at this time. Her last stress test was performed sometime in 2014 or so. At the time of my evaluation, she is a bit agitated, wishes to go home and she is actually all dressed up but has no chest pain or shortness of breath. PAST MEDICAL HISTORY: 1. Type 2 diabetes mellitus. 2. Hypertension with somewhat suboptimal control. 3. Coronary artery disease with prior bypass surgery. 4. History of hyperlipidemia. MEDICATIONS: At home include losartan, insulin, hydralazine, Lasix 40 mg daily, vitamin supplements, aspirin and she also takes atorvastatin 80 mg daily. She has been also taking some potassium supplements and omeprazole. ALLERGIES: She is allergic to CORTISONE and PENICILLIN. On examination, when I first saw her, pressure was about 210/114. We gave her sublingual nitroglycerin, Norvasc and hydralazine and the systolic came down to 190 and the diastolic was about 80 or so. Pulse rate was about 70 beats per minute. EKG revealed a sinus mechanism with inferolateral ST-T wave changes which are seen diffusely, but these changes are not new. There were also noted in 2015 as well. Physical exam revealed bilateral carotid bruit, JVD of 1 cm. There is no thyromegaly. Heart exam reveals S1, S2 heard normally with ejection systolic murmur at the base and left sternal border. Lungs reveal bilateral decent air entry. Abdomen is soft, nontender. Lower extremities reveal diminished pulses. No edema. Central nervous system is normal. LABORATORY DATA: Revealed that the third troponin is 0.037. The initial two were 0.02 and 0.02. IMPRESSION: 1. Accelerated hypertension. 2. Episode of hypoglycemia causing confusion. 3. I do not believe this is a transient ischemic attack-type picture. 4. CT angiography revealed noncritical disease in the carotid system and vertebrals were widely patent. 5. Coronary artery disease with prior bypass surgery without evidence of ongoing myocardial ischemia. Troponin elevation needs to be further followed. 6. History of type 2 diabetes mellitus. 7. Hyperlipidemia. RECOMMENDATION: I am recommending that we keep the patient in the hospital, optimize blood pressure control, obtain additional troponins and echocardiogram and based on this, I will make further recommendations. Discussed my thoughts in detail with the patient and . MMODL / IJN: [id number] /
[2017-07-06 13:25] LABS: Albumin 3.1 g/dL (3.5-5.0); Calcium 9.8 mg/dL (8.4-10.2); Total Bilirubin 0.5 mg/dL (0.2-1.3); Total Protein 5.6 g/dL (6.3-8.2)
--- NOTE | 2017-07-06 14:04 | CONS ---
CONSULTATION This is an 82-year-old, pleasant female. Patient came with history of confusion and dizziness and she has been admitted to [facility]. Patient had a CT scan of the carotid which showed right side 50% stenosis. The patient has no history of TIA and no history of any motor deficit. MEDICAL HISTORY: 1. History of coronary artery bypass graft done in the past. 2. History of diabetes. 3. History of hypertension. PHYSICAL EXAMINATION: Patient was seen in her room. Her neck is supple. No bruit appreciated. Chest is clear to auscultation. First and second sounds normal. Abdomen is soft, nontender. Vascular examination, brachial radial femoral pulses are present. CENTRAL NERVOUS SYSTEM: Oriented to time and place. Normal motor function. CT scan showed 50% occlusion of the right internal carotid artery with history of confusion. We have checked the lab. Her blood sugar was low when she came in to 50s, most likely her symptoms are from hypoglycemia. At this point, since patient has no history of TIA and she has a carotid stenosis, she does not need any surgical intervention. Will follow with you. When she is discharged, I will follow up in my office for carotid stenosis. Thank you very much for this. MMODL / IJN: [id number] /
[2017-07-06] MEDS: SPIRONOLACTONE 25 MG TAB PO SCH ×2 (14:23→20:27)
[2017-07-06] MEDS ORDERED: cloNIDine HCL 0.2 MG TAB PO SCH ×2 (16:00→21:00)
[2017-07-06 17:54] LABS: Glucose,Whole Blood 144 mg/dL (75-99)
--- NOTE | 2017-07-06 18:10 | P.PN ---
Subjective Progress Note Date: 07/06/17 82 years old right-handed female with past medical history of coronary artery disease status post CABG in 2012 following a myocardial infarction, history of type 2 diabetes on insulin, hyperlipidemia, hypertension, history of cervical stenosis, back pain presents in with episode of confusion and disorientation that'll lasted few hours starting yesterday morning. According to the patient, she was trying to clean her house and was working for more than 8 hours in her closet and had some neck pain due to constant movement of her neck and hand. She was disoriented in the morning when she was unable to draw up the insulin or her diabetes in the morning. Since that symptoms lasted few hours patient has been insisted her to come to the ER. She denies any confusion since admission. She denies any motor or sensory deficit or any history of seizures. Patient denies any previous episodes of this before. Full she currently takes 160 mg of aspirin and Lipitor [address] brain was negative for any acute abnormality. Patient underwent CTA of the neck which suggested some mid left CCA stenosis less than 50% with proximal ICA stenosis greater than 50% on the right and less than 50% on the left. Vascular surgery consult placed. Continue patient on aspirin and Lipitor. EKG suggested sinus bradycardia with first-degree AV block. ST or T-wave abnormality suggesting inferior lateral ischemia. No previous EKG to compare. Labs suggestive of hemoglobin of 10.8, B UN 41, creatinine 1.3 with 16 hyaline cast. She received a liter of IV fluid. Lactic acid ordered. Echo ordered 07/06 patient is asymptomatic. Blood pressure still high despite being on hydralazine, clonidine, Norvasc, doxazosin and losartan and Lasix. Patient initiated on spider lactone. Green renin level and aldosterone levels ordered. Renal ultrasound ordered to look for renal artery hypertension. Patient has history of coronary artery disease and many renal artery stenosis might be the reason for patient's resistant hypertension. Objective - Vital Signs Vital signs: Vital Signs Temp 97.4 F L 07/06/17 16:00 Pulse 61 07/06/17 16:00 Resp 18 07/06/17 16:00 BP 181/76 07/06/17 16:00 Pulse Ox 99 07/06/17 16:00 Intake & Output 07/05/17 07/06/17 07/06/17 18:59 06:59 18:59 Intake Total 658 240 Balance 658 240 Weight 82.554 kg 83.6 kg Intake: Oral 658 240 Other: Voiding Method Toilet Toilet Toilet # Voids 3 - Exam - Constitutional General appearance: cooperative, no acute distress, obese - EENT Eyes: anicteric sclerae, PERRLA, normal appearance ENT: hearing grossly normal - Neck Neck: no lymphadenopathy, normal ROM, no other, no rigidity, no stridor, no thyromegaly - Respiratory Respiratory: bilateral: CTA, negative: diminished, dullness, rales, rhonchi - Cardiovascular Rhythm: regular Heart sounds: normal: S1, S2 Abnormal Heart Sounds: 3+ systolic murmur, no diastolic murmur, no rub, no S3 Gallop, no S4 Gallop, no click, no other - Gastrointestinal General gastrointestinal: normal bowel sounds, soft - Integumentary Integumentary: no rash - Neurologic Neurologic: CNII-XII intact - Musculoskeletal Musculoskeletal: gait normal, strength equal bilaterally - Psychiatric Psychiatric: A&O x's 3, appropriate affect - Labs CBC & Chem 7: 07/04/17 20:04 07/06/17 09:16 Labs: Abnormal Lab Results - Last 24 Hours (Table) 07/05/17 07/06/17 07/06/17 Range/Units 21:01 03:21 03:21 Chloride (98-107) mmol/L Carbon Dioxide (22-30) mmol/L BUN (7-17) mg/dL Glucose (74-99) mg/dL POC Glucose (mg/dL) 197 H (75-99) mg/dL Hemoglobin A1c 6.3 H (4.0-6.0) % Troponin I 0.039 H* (0.000-0.034) ng/mL Total Protein (6.3-8.2) g/dL Albumin (3.5-5.0) g/dL 07/06/17 07/06/17 07/06/17 Range/Units 06:58 09:16 09:16 Chloride 111 H (98-107) mmol/L Carbon Dioxide 21 L (22-30) mmol/L BUN 32 H (7-17) mg/dL Glucose 134 H (74-99) mg/dL POC Glucose (mg/dL) 155 H (75-99) mg/dL Hemoglobin A1c (4.0-6.0) % Troponin I 0.037 H* (0.000-0.034) ng/mL Total Protein 5.6 L (6.3-8.2) g/dL Albumin 3.1 L (3.5-5.0) g/dL 07/06/17 07/06/17 07/06/17 Range/Units 11:31 12:07 17:51 Chloride (98-107) mmol/L Carbon Dioxide (22-30) mmol/L BUN (7-17) mg/dL Glucose (74-99) mg/dL POC Glucose (mg/dL) 188 H 144 H (75-99) mg/dL Hemoglobin A1c (4.0-6.0) % Troponin I 0.036 H* (0.000-0.034) ng/mL Total Protein (6.3-8.2) g/dL Albumin (3.5-5.0) g/dL Assessment and Plan Plan: 1 acute episode of confusion and disorientation likely secondary to TIA other differential includes dehydration, vasovagal episode or exacerbation of her cervical stenosis. Continue aspirin and Lipitor 80 mg daily.Vascular surgery consult for carotid stenosis. 2. Acute kidney injury on chronic kidney disease with baseline creatinine between 1-1.3. Repeat CMP tomorrow status post 1000 IV fluid 3 systolic dysfunction congestive heart failure not in exacerbation continue losartan, Lasix 40 daily, atorvastatin, aspirin 4 possible non-Q-wave KS: EKG suggestive of inferior lateral myocardial infarction. Cardiology consult. Troponin ordered Echocardiogram ordered 5 Iron deficiency anemia iron studies ordered. Due to increasing B UN concern for GI bleed but patient denies any black stools. She takes iron sulfate, stool test might not be a great. We'll order fecal Test 6 type 2 diabetes on insulin: Patient was previously on 7030 insulin. Currently taking insulin lispro 3 times a day 20 units. In the hospitalizations only requiring 2 units with meals. Patient needs reinforcement and diabetic education and may benefit from continuous glucose monitoring as patient is having many hypoglycemic episodes during the hospital stay continue insulin sliding scale while in the hospital. 7. Resistant hypertension:losartan 50 mg daily and Cardura 4 mg a day continue amlodipine 5 mg a twice a day as well and hydralazine 100 mg 3 times a day. Initiated on clonidine 0.2 mg twice a day along with Spirnolactone 8 GI prophylaxis/GERD: Rafael patient on omeprazole 20 mg daily. 9 hyperlipidemia: Still on Lipitor 80 mg daily. DVT prophylaxis Heparin every 12 CODE STATUS: Full code.
[2017-07-06] MEDS: LOSARTAN 50 MG TAB PO SCH (18:27)
[2017-07-06 20:15] LABS: Glucose,Whole Blood 188 mg/dL (75-99)
[2017-07-06] MEDS: ACETAMINOPHEN TAB 325 MG TAB PO SCH (20:26)
[2017-07-06] MEDS: amLODIPine 5 MG TAB PO SCH (20:27)
[2017-07-07] MEDS: SODIUM CHLORIDE 0.9% 1,000 ML IV SCH ×2 (00:37→06:10)
[2017-07-07] MEDS: POTASSIUM CHLORIDE ER 20 MEQ TAB.ER PO SCH (06:33)
[2017-07-07 06:53] LABS: Glucose,Whole Blood 181 mg/dL (75-99)
[2017-07-07] MEDS ORDERED: LOSARTAN 50 MG TAB PO SCH ×2 (07:37→09:00)
[2017-07-07 07:51] LABS: Basophils % (A) 0 %; Eosinophils # (A) 0.3 k/uL (0-0.7); Eosinophils % (A) 6 %; HCT 30.4 % (34.0-46.0); HGB 9.5 gm/dL (11.4-16.0); Lymphocytes % (A) 19 %; MCH 30.4 pg (25.0-35.0); MCHC 31.2 g/dL (31.0-37.0); MCV 97.6 fL (80.0-100.0); Mean Platelet Volume 8.6; Monocytes # (A) 0.5 k/uL (0-1.0); Monocytes % (A) 8 %; Neutrophils # (A) 3.7 k/uL (1.3-7.7); Neutrophils % (A) 66 %; Platelet Count 221 k/uL (150-450); RBC 3.12 m/uL (3.80-5.40); RDW 13.5 % (11.5-15.5); WBC 5.6 k/uL (3.8-10.6)
[2017-07-07 08:06] LABS: Calcium 9.7 mg/dL (8.4-10.2); Potassium 4.1 mmol/L (3.5-5.1)
[2017-07-07] MEDS: DOXAZOSIN 4 MG TAB PO SCH (09:39)
[2017-07-07] MEDS: ASPIRIN 325 MG TAB PO SCH (09:39)
[2017-07-07] MEDS: hydrALAZINE HCL 50 MG TAB PO SCH (09:39)
[2017-07-07] MEDS: amLODIPine 5 MG TAB PO SCH (09:39)
[2017-07-07] MEDS: SPIRONOLACTONE 25 MG TAB PO SCH (09:39)
[2017-07-07] MEDS: FERROUS SULFATE 325 MG TAB PO SCH (09:39)
[2017-07-07] MEDS: INSULIN ASPART 100 UNIT/ML 1 ML 10 ML VIAL SQ SCH ×2 (09:40→13:56)
[2017-07-07] MEDS ORDERED: LORazepam 1 MG TAB PO PRN (09:50)
[2017-07-07 12:10] LABS: Glucose,Whole Blood 186 mg/dL (75-99)
[2017-07-07] MEDS ORDERED: MINOXIDIL 10 MG TAB PO ONE (12:29)
[2017-07-07] MEDS ORDERED: LORazepam 0.5 MG TAB PO PRN (13:04)
--- NOTE | 2017-07-07 13:15 | US ---
EXAMINATION TYPE: US renal artery duplex complet DATE OF EXAM: 07/07/2017 COMPARISON: NONE CLINICAL HISTORY: r/o renal artery stenosis . Controlled HTN for years. Accelerated HTN for the last 3 days since admitted into hospital MEASUREMENTS: RENAL SIZE: Rt Kidney: 9.7 x 3.6 x 4.0cm Lt Kidney: 10.3 x 4.6 x 4.6cm RESISTANCE INDEX Right: 0.70 Left: 0.75 RA/AO RATIO (< 3.5 ) Right: 1.5 Left: 0.9 RA VELOCITY ( < 180 cm/s) Right: 259.0cm/s Left: 158.5cm/s IMPRESSION: *technical limitations due to large amount of overlying bowel content. Calcifications noted throughou t aorta. Fullness to left renal pelvis. Velocities appear elevated at proximal right renal artery. Di fficult to evaluate left renal artery due to overlying bowel, no evidence of elevated velocities as v isualized. Low resistive waveforms noted throughout
[2017-07-07] MEDS: CHOLECALCIFEROL 1,000 UNIT TAB PO SCH (13:37)
[2017-07-07] MEDS: FUROSEMIDE 40 MG TAB PO SCH (13:37)
[2017-07-07] MEDS: ALLOPURINOL 100 MG TAB PO SCH (13:37)
[2017-07-07] MEDS: ATORVASTATIN 80 MG TAB PO SCH (13:38)
[2017-07-07 16:06] VITALS: BP 196/56; PULSE 58; RESP 17; TEMP 97.8
[2017-07-07] MEDS ORDERED: LORazepam 1 MG TAB PO SCH (21:00)
--- NOTE | 2017-07-08 05:35 | PN ---
PROGRESS NOTE This is an elderly lady who came into the hospital with a TIA. Clinical picture does not suggest TIA. In my opinion, it is probably a combination of accelerated hypertension and hypoglycemia. Her blood pressure control is better, but not totally optimal. I am recommending that we use a combination of clonidine and Norvasc as well as hydralazine. Blood pressure, if it is improved, she can be discharged later on today. I have considered minoxidil, but I decided not to pursue it. Vital signs are stable. Blood pressure at the time of my evaluation was actually 160/80. S1 and S2 heard normally. Systolic murmur is audible at the base. Lungs are clear. Abdomen and lower extremity exam is unchanged. Plan is to continue current medications, increase activity. If blood pressure is better, she can be discharged and I will be happy to see her in the office in the next 2 to 3 weeks. MMODL / IJN: [id number] /
--- NOTE | 2017-07-08 13:47 | P.DS ---
Providers Date of admission: 07/06/17 14:20 Expected date of discharge: 07/07/17 Attending physician: Leela Bill Consults: 07/05/17 08:37 Consult Physician Routine Consulting Provider: Licha Byrne Consult Reason/Comments: TIA Do you want consulting provider notified?: Yes 07/05/17 19:40 Consult Physician Routine Consulting Provider: Sneha Franco Consult Reason/Comments: TIA, with EKG changes Do you want consulting provider notified?: Yes 07/06/17 08:00 Consult Physician Routine Consulting Provider: Frankie Barillas Consult Reason/Comments: Right carotid artery stenosis and TIA. Do you want consulting provider notified?: Yes Primary care physician: Leela Bill Hospital Course: 82 years old right-handed female with past medical history of coronary artery disease status post CABG in 2011 following a myocardial infarction, history of type 2 diabetes on insulin, hyperlipidemia, hypertension, history of cervical stenosis, back pain presents in with episode of confusion and disorientation that'll lasted few hours starting yesterday morning. According to the patient, she was trying to clean her house and was working for more than 8 hours in her closet and had some neck pain due to constant movement of her neck and hand. She was disoriented in the morning when she was unable to draw up the insulin or her diabetes in the morning. Since that symptoms lasted few hours patient has been insisted her to come to the ER. She denies any confusion since admission. She denies any motor or sensory deficit or any history of seizures. Patient denies any previous episodes of this before. Full she currently takes 160 mg of aspirin and Lipitor [address] brain was negative for any acute abnormality. Patient underwent CTA of the neck which suggested some mid left CCA stenosis less than 50% with proximal ICA stenosis greater than 50% on the right and less than 50% on the left. Vascular surgery consult placed. Continue patient on aspirin and Lipitor. EKG suggested sinus bradycardia with first-degree AV block. ST or T-wave abnormality suggesting inferior lateral ischemia. No previous EKG to compare. Labs suggestive of hemoglobin of 10.8, B UN 41, creatinine 1.3 with 16 hyaline cast. She received a liter of IV fluid. Lactic acid ordered. Echo ordered 07/06 patient is asymptomatic. Blood pressure still high despite being on hydralazine, clonidine, Norvasc, doxazosin and losartan and Lasix. Patient initiated on Aldactone. Green renin level and aldosterone levels ordered. Renal ultrasound ordered to look for renal artery hypertension. Patient has history of coronary artery disease and many renal artery stenosis might be the reason for patient's resistant hypertension. 07/07: Patient has been seen by Dr. Barillas for carotid stenosis 50% on the right with no plan for any surgical intervention. Patient is to follow in the office. Echocardiogram reveals EF of 55-60% with severe concentric left ventricular hypertrophy, LA severely dilated greater than 40, mild aortic stenosis, moderate mitral calcification, mild mitral regurgitation, moderate tricuspid regurgitation. Patient has been seen by Dr. Castillo. Renal artery duplex revealed limitations due to large amount of overlying bowel content. Calcifications throughout the aorta. Fullness of the left renal pelvis. Velocities appear elevated at proximal right renal artery. Difficult to evaluate left renal artery due to overlying bowel. No evidence of elevated velocities. Low resistant waveforms noted throughout. Patient's blood pressure remained elevated this morning. She denies any dizziness lightheadedness or chest pain. New medications include Norvasc, Cozaar, Aldactone. Patient will need follow-up with nephrology for renal vascular hypertension. Discharge diagnoses: 1. Acute episode of confusion and disorientation likely secondary accelerated hypertension and hypoglycemia. 2. Acute kidney injury on chronic kidney disease with baseline creatinine between 1-1.3. 3. Chronic systolic heart failure not in exacerbation 4. 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 Possible non-Q-wave [place] ruled out 6. Anemia of chronic disease. 7. Diabetes mellitus type 2 insulin requiring 8. GERD 9. Hyperlipidemia Discharge plan: Return home Impression and plan of care have been directed as dictated by the signing physician. Talia Schneider nurse practitioner acting as scribe for signing physician. Patient Condition at Discharge: Good Plan - Discharge Summary Discharge Rx Participant: Yes New Discharge Prescriptions: New amLODIPine [Norvasc] 5 mg PO BID #60 tab Losartan [Cozaar] 100 mg PO DAILY #120 tab Spironolactone [Aldactone] 25 mg PO BID #60 tab Potassium Citrate [Potassium Citrate ER] 20 meq PO MOWEFR #1 tablet.er Continue Omeprazole 40 mg PO DAILY PRN PRN Reason: Heartburn Aspirin 162 mg PO HS Allopurinol 100 mg PO DAILY@1200 Doxazosin Mesylate 4 mg PO DAILY LORazepam [Ativan] 1 mg PO DAILY PRN PRN Reason: Anxiety Nitroglycerin 0.2MG/Hr Patch [Nitro-Dur 0.2MG/Hr Patch] 1 patch TRANSDERM Q24H PRN PRN Reason: Chest Pain Ferrous Sulfate [Feosol] 0.5 tab PO DAILY Cholecalciferol [Vitamin D3] 2,000 unit PO DAILY@1200 Ascorbic Acid [Vitamin C] 500 mg PO DAILY@1200 Atorvastatin [Lipitor] 80 mg PO DAILY@1200 Furosemide [Lasix] 40 mg PO DAILY@1200 INSULIN LISPRO (HumaLOG) [humaLOG] 20 units SQ AC-TID INSULIN LISPRO (HumaLOG) [humaLOG] 10 units SQ HS PRN PRN Reason: if hs snack taken Lidocaine HCl [Aspercreme] 76.5 gm TP DIRECTED PRN PRN Reason: Pain Baclofen 5 mg PO HS Acetaminophen [Tylenol 8 Hour] 650 mg PO HS HYDROcodone/APAP 5-325MG [[place] 5-325] 1 tab PO HS PRN PRN Reason: Pain hydrALAZINE HCL [Apresoline] 100 mg PO BID Discontinued Potassium Chloride [Klor-Con 20] 20 meq PO MOWEFR Losartan [Cozaar] 50 mg PO AC-SUPPER Discharge Medication List Allopurinol 100 mg PO DAILY@1200 03/05/14 [History] Aspirin 162 mg PO HS 03/05/14 [History] Doxazosin Mesylate 4 mg PO DAILY 03/05/14 [History] Omeprazole 40 mg PO DAILY PRN 03/05/14 [History] LORazepam [Ativan] 1 mg PO DAILY PRN 09/23/14 [History] Ascorbic Acid [Vitamin C] 500 mg PO DAILY@1200 09/24/14 [History] Atorvastatin [Lipitor] 80 mg PO DAILY@1200 09/24/14 [History] Cholecalciferol [Vitamin D3] 2,000 unit PO DAILY@119909/24/14 [History] Ferrous Sulfate [Feosol] 0.5 tab PO DAILY 09/24/14 [History] Nitroglycerin 0.2MG/Hr Patch [Nitro-Dur 0.2MG/Hr Patch] 1 patch TRANSDERM Q24H PRN 09/24/14 [History] Furosemide [Lasix] 40 mg PO DAILY@119908/07/15 [History] INSULIN LISPRO (HumaLOG) [humaLOG] 10 units SQ HS PRN 08/07/15 [History] INSULIN LISPRO (HumaLOG) [humaLOG] 20 units SQ AC-TID 08/07/15 [History] Lidocaine HCl [Aspercreme] 76.5 gm TP DIRECTED PRN 08/27/15 [History] Baclofen 5 mg PO HS 10/22/15 [History] Acetaminophen [Tylenol 8 Hour] 650 mg PO HS 11/18/15 [History] HYDROcodone/APAP 5-325MG [[place] 5-325] 1 tab PO HS PRN 11/18/15 [History] hydrALAZINE HCL [Apresoline] 100 mg PO BID 07/04/17 [History] Losartan [Cozaar] 100 mg PO DAILY #120 tab 07/07/17 [Rx] Potassium Citrate [Potassium Citrate ER] 20 meq PO MOWEFR #1 tablet.er 07/07/17 [Rx] Spironolactone [Aldactone] 25 mg PO BID #60 tab 07/07/17 [Rx] amLODIPine [Norvasc] 5 mg PO BID #60 tab 07/07/17 [Rx] Follow up Appointment(s)/Referral(s): Leela Bill MD [Primary Care Provider] - 1-2 Days Demetrius Diana MD [STAFF PHYSICIAN] - 1 Week (Appointment made for July 13 @ 4:00pm.) Patient Instructions/Handouts: Hypertension (DC) Discharge Disposition: HOME SELF-CARE
--- NOTE | 2017-07-13 09:15 | CDI ---
Documentation Clarification Form Date: 07/13/17 CDS/Lead Level Designer Name: Jennifer Fernando Yary Anthony, Skidway Worker between 8:30 am & 5 pm M-F Admit Date: 07/06/17 Discharge Date: 07/07/17 ATTENTION: The Clinical Documentation Specialists (CDI) and [facility] Coding Staff appreciate your assistance in clarifying documentation. Please respond to the clarification below the line at the bottom and electronically sign. The CDI & [facility] Coding staff will review the response and follow-up if needed. Please note: Queries are made part of the Legal Health Record. If you have any questions, please contact the author of this message via ITS. Dr. Mathew Amaral, Accelerated hypertension was documented on Dr Anderson consult and 07/08 PN and DS. 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 Clinical Indicators: B/P: 157/67, 157/67, 196/93 Left BP readings: 175/74, 194/81, 197/74, 172/70, 164/70,198/69, 201/ 72, 160/63, 154/68, 177/74, 142/62, 234/124, 220/114, 224/78, 190/60, 198/79, 195/96, 181 /76, 179/78, 181/56 Right BP readings: 217/70, 191/79, 196/56 Treatment: Hydralazine, clonidine, norvasc, doxazosin, losartan and lasix In order to capture the severity of condition, please document and specify the appropriate condition: Hypertensive Emergency Hypertensive Urgency Other Condition, please specify Unable to determine Diagnosis Clinical Indicators Hypertensive Urgency SBP > 180 or DBP > 120 without symptoms or with headache Hypertensive Emergency SBP > 180 or DBP > 120 with chest pain or end organ damage Hypertensive encephalopathy, retinal hemorrhages, papilledema, RALPH Please document in your progress notes and discharge summary in order to capture severity of illness and risk of mortality. Include clinical findings that support your diagnosis. MTDD
--- NOTE | 2017-07-13 09:33 | CDI ---
Last Revision, March 2017 Documentation Clarification Form Date: 07/13/17 From: Jennifer Abdullahi Yary Anthony, Skating Carhop between 8:30 am & 5 pm [place] Admit Date: 07/06/2017 2:20:00 PM Patient Name: Rochelle Sainz Visit Number: [id number] Discharge Date: 07/07/17 ATTENTION: The Clinical Documentation Specialists (CDI) and [facility] Coding Staff appreciate your assistance in clarifying documentation. Please respond to the clarification below the line at the bottom and electronically sign. The CDI & [facility] Coding staff will review the response and follow-up if needed. Please note: Queries are made part of the Legal Health Record. If you have any questions, please contact the author of this message via ITS. Dr. Mathew Amaral History/Risk Factors:renovascular HTN Clinical Indicators: acute episode of confusion and disorientation, ARF Current BUN: 41, 32, 32 Current CR: 1.30, .86, .92 Current GFR: 39, 64, 59 Patients Baseline: CR: between 1-1.3 Treatment: IV fluids, control Htn Patients medications include: Allopuinol, Vit C, ASA, Lipitor, Baclofen, Vit D3 , Doxazosin Mesylate, Feosol, Lasix, Apresoline, [place], Humalog, Ativan, Nitro- Dur, Omeprazole, Klor-Con In order to capture the severity of condition, please clarify if the condition signifies: CKD Stage 1 (GFR > 90) CKD Stage 2 (GFR 60-89) CKD Stage 3 (GFR 30-59) CKD Stage 4 (GFR 15-29) CKD Stage 5 (GFR <15) ESRD Other, please specify Unable to determine Please continue to document in your progress notes and discharge summary in order to capture severity of illness and risk of mortality. Include clinical findings that support your diagnosis. MTDD
== END 2017-07-07 16:55 | disposition home or self-care (01) | DRG 305 ==
LOC: EC 19:27 → 6SEL 22:31 → 4MS4W 07-05 21:44 → 3OBS 07-06 00:51 → OBSVTOIN 07-06 14:20
PROVIDERS: ADMIT Internal Medicine; ATTEND Internal Medicine
DX: I15.0 Renovascular hypertension (principal); N17.9 Acute kidney failure, unspecified; E11.649 Type 2 diabetes mellitus with hypoglycemia without coma; E11.22 Type 2 diabetes mellitus with diabetic chronic kidney disease; I50.22 Chronic systolic (congestive) heart failure; I16.0 Hypertensive urgency; E86.0 Dehydration; I08.3 Combined rheumatic disorders of mitral, aortic and tricuspid valves; M48.02 Spinal stenosis, cervical region; I70.1 Atherosclerosis of renal artery; I65.21 Occlusion and stenosis of right carotid artery; N18.3 Chronic kidney disease, stage 3 (moderate); D63.8 Anemia in other chronic diseases classified elsewhere; I11.0 Hypertensive heart disease with heart failure; I44.0 Atrioventricular block, first degree; I25.10 Atherosclerotic heart disease of native coronary artery without angina pectoris; K21.9 Gastro-esophageal reflux disease without esophagitis; E78.5 Hyperlipidemia, unspecified; I25.2 Old myocardial infarction; M19.91 Primary osteoarthritis, unspecified site; F41.9 Anxiety disorder, unspecified; M54.9 Dorsalgia, unspecified; Z79.82 Long term (current) use of aspirin; Z79.4 Long term (current) use of insulin; Z79.899 Other long term (current) drug therapy; Z87.01 Personal history of pneumonia (recurrent); Z88.0 Allergy status to penicillin; Z88.8 Allergy status to other drugs, medicaments and biological substances; Z90.49 Acquired absence of other specified parts of digestive tract; Z95.1 Presence of aortocoronary bypass graft; Z90.710 Acquired absence of both cervix and uterus; Z82.49 Family history of ischemic heart disease and other diseases of the circulatory system; Z83.3 Family history of diabetes mellitus; Z80.9 Family history of malignant neoplasm, unspecified
CPT/HCPCS: 36415; 70450; 70496; 70498; 71046; 80048; 80053; 80061; 81001; 82088; 82550; 82553; 82728; 83036; 83540; 83550; 84244; 84484; 85025; 85610; 85730; 93005; 93306; 93975; 96361; 96374; 96375; 96376; 99285

== ENCOUNTER 2017-09-16 01:31 | Inpatient (IN) | payer MEDICARE ==
[2017-09-16] MEDS ORDERED: SODIUM CHLORIDE 0.9% 1,000 ML IV STA (01:48)
[2017-09-16 01:57] LABS: Basophils % (A) 0 %; Eosinophils # (A) 0.3 k/uL (0-0.7); Eosinophils % (A) 5 %; HCT 29.9 % (34.0-46.0); HGB 9.5 gm/dL (11.4-16.0); Lymphocytes # (A) 1.5 k/uL (1.0-4.8); Lymphocytes % (A) 22 %; MCH 31.7 pg (25.0-35.0); MCHC 31.9 g/dL (31.0-37.0); MCV 99.3 fL (80.0-100.0); Macrocytosis Slight; Mean Platelet Volume 8.5; Monocytes # (A) 0.6 k/uL (0-1.0); Monocytes % (A) 9 %; Neutrophils # (A) 4.3 k/uL (1.3-7.7); Neutrophils % (A) 62 %; Platelet Count 240 k/uL (150-450); RBC 3.01 m/uL (3.80-5.40); RDW 14.3 % (11.5-15.5); WBC 6.9 k/uL (3.8-10.6)
[2017-09-16 02:08] LABS: Albumin 3.4 g/dL (3.5-5.0); Calcium 9.5 mg/dL (8.4-10.2); Magnesium 2.1 mg/dL (1.6-2.3); Total Bilirubin 0.4 mg/dL (0.2-1.3); Total Protein 5.7 g/dL (6.3-8.2)
[2017-09-16 02:11] LABS: Partial Thromboplastin Time 22.6 sec (22.0-30.0); Prothrombin Time 9.6 sec (9.0-12.0)
[2017-09-16 02:20] LABS: D-Dimer 2.46 mg/L FEU (<0.60)
[2017-09-16 02:30] LABS: Creatine Kinase MB 2.3 ng/mL (0.0-2.4); Troponin I 0.023 ng/mL (0.000-0.034)
[2017-09-16 02:32] LABS: Glucose,Whole Blood 63 mg/dL (75-99)
--- NOTE | 2017-09-16 02:40 | XR ---
EXAMINATION TYPE: XR chest 2V DATE OF EXAM: 09/16/2017 COMPARISON: 07/04/2017 HISTORY: Chest pain TECHNIQUE: Frontal and lateral views of the chest are obtained. FINDINGS: Heart is enlarged. There is no gross heart failure. Lungs are clear of consolidation. Ther e are sternal wires. There are chest leads. Bony thorax is intact. IMPRESSION: Cardiomegaly. No active cardiopulmonary disease. No change.
[2017-09-16] MEDS ORDERED: ENOXAPARIN 60 MG/0.6 ML SYRINGE SQ STA (02:44)
[2017-09-16] MEDS ORDERED: DEXTROSE 50%-WATER 50 ML SYRINGE IVP STA (02:52)
[2017-09-16 03:16] LABS: Glucose,Whole Blood 81 mg/dL (75-99)
[2017-09-16] MEDS ORDERED: NITROGLYCERIN SL TABS 0.4 MG TAB SUBLINGUAL PRN (03:24)
[2017-09-16] MEDS ORDERED: ACETAMINOPHEN TAB 325 MG TAB PO PRN (03:24)
--- NOTE | 2017-09-16 03:24 | ED ---
Chest Pain HPI - General Chief Complaint: Chest Pain Stated Complaint: CHEST PAIN Time Seen by Provider: 09/16/17 01:41 Source: patient Mode of arrival: EMS Limitations: no limitations - History of Present Illness Initial Comments: 82 years old female with history of coronary artery disease, congestive heart failure, diabetes, hyperlipidemia, hypertension, myocardial infarction and heart valve disease present with a chest pain ongoing for 24 hours she said chest pain is worse with a deep breaths and also complaining about severe cramps in her both proximal legs she is she had a nitro patch that helped with the chest pain. Review of system is unremarkable otherwise - Related Data Home Medications Medication Instructions Recorded Confirmed Allopurinol 100 mg PO DAILY@1200 03/05/14 07/04/17 Aspirin 162 mg PO HS 03/05/14 07/04/17 Doxazosin Mesylate 4 mg PO DAILY 03/05/14 07/04/17 Omeprazole 40 mg PO DAILY PRN 03/05/14 07/04/17 LORazepam [Ativan] 1 mg PO DAILY PRN 09/23/14 07/04/17 Ascorbic Acid [Vitamin C] 500 mg PO DAILY@1200 09/24/14 07/04/17 Atorvastatin [Lipitor] 80 mg PO DAILY@1200 09/24/14 07/04/17 Cholecalciferol [Vitamin D3] 2,000 unit PO DAILY@1200 09/24/14 07/04/17 Ferrous Sulfate [Feosol] 0.5 tab PO DAILY 09/24/14 07/04/17 Nitroglycerin 0.2MG/Hr Patch 1 patch TRANSDERM Q24H PRN 09/24/14 07/04/17 [Nitro-Dur 0.2MG/Hr Patch] Furosemide [Lasix] 40 mg PO DAILY@1200 08/07/15 07/04/17 INSULIN LISPRO (HumaLOG) [humaLOG] 10 units SQ HS PRN 08/07/15 07/04/17 INSULIN LISPRO (HumaLOG) [humaLOG] 20 units SQ AC-TID 08/07/15 07/04/17 Lidocaine HCl [Aspercreme] 76.5 gm TP DIRECTED PRN 08/27/15 07/04/17 Baclofen 5 mg PO HS 10/22/15 07/04/17 Acetaminophen [Tylenol 8 Hour] 650 mg PO HS 11/18/15 07/04/17 HYDROcodone/APAP 5-325MG [[place] 1 tab PO HS PRN 11/18/15 07/04/17 5-325] hydrALAZINE HCL [Apresoline] 100 mg PO BID 07/04/17 07/04/17 Previous Rx's Medication Instructions Recorded Losartan [Cozaar] 100 mg PO DAILY #120 tab 07/07/17 Potassium Citrate [Potassium 20 meq PO MOWEFR #1 tablet.er 07/07/17 Citrate ER] Spironolactone [Aldactone] 25 mg PO BID #60 tab 07/07/17 amLODIPine [Norvasc] 5 mg PO BID #60 tab 07/07/17 Allergies Allergy/AdvReac Type Severity Reaction Status Date / Time cortisone Allergy Rash/Hives Verified 09/16/17 01:40 Penicillins Allergy Rash/Hives Verified 09/16/17 01:40 Review of Systems ROS Statement: Those systems with pertinent positive or pertinent negative responses have been documented in the HPI. ROS Other: All systems not noted in ROS Statement are negative. EKG Findings - EKG Comments: EKG Findings:: and lead aVF and inversion of T-wave in V4 V5 and V6 this EKG was compared with EKG from June 2017 there were no significant changes Past Medical History Past Medical History: Coronary Artery Disease (CAD), Heart Failure, Diabetes Mellitus, GERD/Reflux, Hyperlipidemia, Hypertension, Myocardial Infarction (CT) , Osteoarthritis (OA), Pneumonia Additional Past Medical History / Comment(s): Hx Mitral regurgitation, anemia, reproductive problems when younger., NECK PAIN. Last Myocardial Infarction Date:: 08/2014 History of Any Multi-Drug Resistant Organisms: None Reported Past Surgical History: Cholecystectomy, Coronary Bypass/CABG, Hysterectomy Additional Past Surgical History / Comment(s): 8x D&C, CABG 7 Blockages, bilateral foot surgery to remove tumors Past Anesthesia/Blood Transfusion Reactions: No Reported Reaction Past Psychological History: No Psychological Hx Reported Smoking Status: Never smoker Past Alcohol Use History: Occasional Past Drug Use History: None Reported - Past Family History Mother Family Medical History: Cancer, Diabetes Mellitus Father Family Medical History: Congestive Heart Failure (CHF) Brother(s) Family Medical History: Cancer (Patient is lives with her , functionally active denies any need a walker or assistance) General Exam - General Exam Comments Initial Comments: General: The patient is awake and alert, in no distress, and does not appear acutely ill. Skin: Skin is warm and dry and no rashes or lesions are noted. Eye: Pupils are equal, round and reactive to light, extra-ocular movements are intact; there is normal conjunctiva bilaterally. Ears, nose, mouth and throat: There are moist mucous membranes and no oral lesions. Neck: The neck is supple, there is no tenderness or JVD. Cardiovascular: There is a regular rate and rhythm. Respiratory for over 6 pansystolic murmur on the left parasternal area Respiratory: To auscultation bilateral, no wheezing no rhonchi no distress respiratory herndon noticed Gastrointestinal: Soft, non-distended, non-tender abdomen without masses or organomegaly noted. There is no rebound or guarding present. Bowel sounds are unremarkable. Back: There is no tenderness to palpation in the midline. There is no obvious deformity. Musculoskeletal: Normal ROM, no tenderness, There is no pedal edema. There is no calf tenderness or swelling. No cords were appreciated. She is tender in the posterior proximal thighs bilateral Neurological: CN II-XII intact, Cranial nerves III through XII are intact. There are no obvious motor or sensory deficits. Coordination appears grossly intact. Speech is normal. Psychiatric: Cooperative, appropriate mood & affect, normal judgment. Limitations: no limitations Course Vital Signs 09/16/17 09/16/17 09/16/17 01:37 01:47 02:23 Temperature 97.0 F L Pulse Rate 59 L 61 Pulse Rate [ 56 L Salvage Engineer ] Respiratory 15 18 Rate Blood Pressure 153/68 150/62 O2 Sat by Pulse 99 98 Oximetry 09/16/17 02:57 Temperature Pulse Rate 52 L Pulse Rate [ Salvage Engineer ] Respiratory 17 Rate Blood Pressure 155/77 O2 Sat by Pulse 99 Oximetry Critical Care Time Total Critical Care Time: 30 Critical Care Time: She has a known history of ischemic heart disease she status post CABG considering her d-dimer is elevated and concerned about PE as well as DVT but her abdomen is elevated she is not a candidate for CT angiogram would do a VQ scan in the morning considering her creatinine is 1.5 mL will be given now Lovenox 0.75 mg/kg also undergo home venous Doppler bilaterally because she is quite tender at the proximal posterior Point natural is no DVT she be admitted to Dr. Garcia's service service and he BE consulted Disposition Clinical Impression: Chest pain, Elevated d-dimer, Leg pain, bilateral Disposition: ADMITTED IP TO THIS [facility] Condition: Good Referrals: Leela Bill MD [Primary Care Provider] - 1-2 days
[2017-09-16 03:29] LABS: Glucose,Whole Blood 162 mg/dL (75-99)
[2017-09-16] MEDS ORDERED: LIDOCAINE 4% CREAM 5 GM TUBE TOPICAL PRN (03:29)
[2017-09-16] MEDS ORDERED: HYDROcodone/APAP 5-325MG 1 EACH TAB PO PRN (03:29)
[2017-09-16] MEDS ORDERED: NITROGLYCERIN 0.2MG/HR PATCH TRANSDERM PRN (03:29)
[2017-09-16] MEDS ORDERED: PANTOPRAZOLE 40 MG TABLET PO PRN (03:29)
[2017-09-16] MEDS ORDERED: MORPHINE SULFATE 2 MG/ML SYRINGE IVP STA (04:17)
[2017-09-16] MEDS ORDERED: ONDANSETRON 4 MG/2 ML VIAL IVP STA (04:17)
[2017-09-16 06:26] LABS: Glucose,Whole Blood 153 mg/dL (75-99)
[2017-09-16 07:16] VITALS: BMI 28.3
[2017-09-16 08:27] LABS: Creatine Kinase MB 2.3 ng/mL (0.0-2.4); Troponin I 0.02 ng/mL (0.000-0.034)
--- NOTE | 2017-09-16 08:42 | NM ---
EXAMINATION TYPE: NM pul vent and perfuse DATE OF EXAM: 09/16/2017 COMPARISON: NONE HISTORY: Shortness of breath TECHNIQUE: Utilizing inhalation of 35.6 mCi Tc 99m DTPA aerosol and intravenous injection of 5 mCi o f Tc 99m MAA, ventilation and perfusion images are acquired post injection in multiple projections. FINDINGS: Central accumulation of radiotracer is noted. No evidence for a perfusion ventilation mismatch. IMPRESSION: Low probability for pulmonary embolism.
--- NOTE | 2017-09-16 09:14 | US ---
EXAMINATION TYPE: US venous doppler duplex LE DATE OF EXAM: 09/16/2017 9:04 AM COMPARISON: NONE CLINICAL HISTORY: Pain. SIDE PERFORMED: Bilateral TECHNIQUE: The lower extremity deep venous system is examined utilizing real time linear array sonog netsor with graded compression, doppler sonography and color-flow sonography. VESSELS IMAGED: External Iliac Vein (EIV) Common Femoral Vein Deep Femoral Vein Greater Saphenous Vein * Femoral Vein Popliteal Vein Small Saphenous Vein * Proximal Calf Veins (* superficial vessels) Grayscale, color doppler, spectral doppler imaging performed of the deep veins of the lower extremiti es. There is normal flow, compressibility, vascular waveforms. Right Leg: Negative for DVT Left Leg: Negative for DVT IMPRESSION: No evidence for DVT.
[2017-09-16 11:48] LABS: Glucose,Whole Blood 102 mg/dL (75-99)
[2017-09-16] MEDS ORDERED: AMINOPHYLLINE 500 MG/20 ML VIAL IV PRN (12:21)
[2017-09-16] MEDS ORDERED: REGADENOSON 0.4 MG/5 ML SYRINGE IV ONE (12:21)
[2017-09-16] MEDS: CHOLECALCIFEROL 1,000 UNIT TAB PO SCH (12:27)
[2017-09-16] MEDS: DOXAZOSIN 4 MG TAB PO SCH (12:27)
[2017-09-16] MEDS: LOSARTAN 50 MG TAB PO SCH (12:28)
[2017-09-16] MEDS: FERROUS SULFATE 325 MG TAB PO SCH (12:28)
[2017-09-16] MEDS: amLODIPine 5 MG TAB PO SCH ×2 (12:28→20:44)
[2017-09-16] MEDS: ASCORBIC ACID 500 MG TAB PO SCH (12:28)
[2017-09-16] MEDS: ALLOPURINOL 100 MG TAB PO SCH (12:28)
[2017-09-16] MEDS: ATORVASTATIN 80 MG TAB PO SCH (12:28)
[2017-09-16] MEDS: FUROSEMIDE 40 MG TAB PO SCH (12:28)
[2017-09-16] MEDS: SPIRONOLACTONE 25 MG TAB PO SCH ×2 (12:28→20:46)
[2017-09-16] MEDS: hydrALAZINE HCL 50 MG TAB PO SCH ×2 (12:28→20:46)
[2017-09-16] MEDS ORDERED: DOBUTamine DRIP for NUC MED 500 MG in DEXTROSE/WATER 1 250ML.BAG IV ONE (12:31)
--- NOTE | 2017-09-16 14:16 | P.CRDCN ---
History of Present Illness Consult date: 09/16/17 Requesting physician: Jayashree Ching Consult reason: chest pain Chief complaint: Chest pain History of present illness: This is a pleasant 82-year-old female with history of coronary artery disease and prior bypass surgery in 2011, hypertension, diabetes, hyperlipidemia. She is to follow with Dr. Sim in the office. He presents to the hospital with symptoms of chest discomfort which she states worsened with taking a deep breath. Chest x-ray performed on arrival here showed cardiomegaly with no active cardiopulmonary disease. D-dimer was positive and therefore patient was scheduled to undergo a VQ scan was low probability for PE , bilateral venous duplex study negative for DVT in either leg. EKG showed normal sinus rhythm with first-degree AV block and nonspecific ST-T wave changes. But pressure on arrival 152/68 with a heart rate of 58, 99% on room air. Blood pressure this morning 120/60 with a heart rate in the low 50s. White blood cell count 6.9, hemoglobin 9.5, platelet count 240. D-dimer 2.4, sodium 144, potassium 4.0, BUN 56, creatinine 1.5. Blood sugar on arrival 48. Troponins 0.020, 0.023. At the time of our examination, patient was chest pain- free. Past Medical History Past Medical History: Coronary Artery Disease (CAD), Heart Failure, Diabetes Mellitus, GERD/Reflux, Hyperlipidemia, Hypertension, Myocardial Infarction ([place]) , Osteoarthritis (OA), Pneumonia Additional Past Medical History / Comment(s): Hx Mitral regurgitation, anemia, reproductive problems when younger., NECK PAIN. Last Myocardial Infarction Date:: 08/2014 History of Any Multi-Drug Resistant Organisms: None Reported Past Surgical History: Cholecystectomy, Coronary Bypass/CABG, Hysterectomy Additional Past Surgical History / Comment(s): 8x D&C, CABG 7 Blockages, bilateral foot surgery to remove tumors Past Anesthesia/Blood Transfusion Reactions: No Reported Reaction Smoking Status: Never smoker - Past Family History Mother Family Medical History: Cancer, Diabetes Mellitus Father Family Medical History: Congestive Heart Failure (CHF) Brother(s) Family Medical History: Cancer (Patient is lives with her , functionally active denies any need a walker or assistance) Medications and Allergies Home Medications Medication Instructions Recorded Confirmed Type Allopurinol 100 mg PO DAILY@1200 03/05/14 09/16/17 History Aspirin 162 mg PO HS 03/05/14 09/16/17 History Doxazosin Mesylate 4 mg PO DAILY 03/05/14 09/16/17 History Omeprazole 40 mg PO DAILY PRN 03/05/14 09/16/17 History LORazepam [Ativan] 1 mg PO DAILY PRN 09/23/14 09/16/17 History Ascorbic Acid [Vitamin C] 500 mg PO DAILY@1200 09/24/14 09/16/17 History Atorvastatin [Lipitor] 80 mg PO DAILY@1200 09/24/14 09/16/17 History Cholecalciferol [Vitamin D3] 2,000 unit PO DAILY 09/24/14 09/16/17 History Ferrous Sulfate [Feosol] 325 mg PO Q48H 09/24/14 09/16/17 History Nitroglycerin 0.2MG/Hr Patch 1 patch TRANSDERM Q24H PRN 09/24/14 09/16/17 History [Nitro-Dur 0.2MG/Hr Patch] Furosemide [Lasix] 40 mg PO MOFR 08/07/15 09/16/17 History INSULIN LISPRO (HumaLOG) [humaLOG] 20 units SQ AC-TID 08/07/15 09/16/17 History INSULIN LISPRO (HumaLOG) [humaLOG] See Protocol SQ DIRECTED PRN 08/07/1510/27 History Baclofen 10 mg PO HS PRN 10/22/15 09/16/17 History Acetaminophen [Tylenol 8 Hour] 650 mg PO HS PRN 11/18/15 09/16/17 History hydrALAZINE HCL [Apresoline] 100 mg PO TID 07/04/17 09/16/17 History Losartan [Cozaar] 100 mg PO DAILY #120 tab 07/07/17 09/16/17 Rx amLODIPine [Norvasc] 5 mg PO BID #60 tab 07/07/17 09/16/17 Rx Potassium Chloride [Klor-Con 10] 20 meq PO MOFR 09/16/17 09/16/17 History Spironolactone [Aldactone] 25 mg PO DAILY 09/16/17 09/16/17 History Allergies Allergy/AdvReac Type Severity Reaction Status Date / Time cortisone Allergy Rash/Hives Verified 09/16/17 01:40 morphine Allergy Unknown Verified 09/16/17 04:24 Penicillins Allergy Rash/Hives Verified 09/16/17 01:40 Physical Exam Vitals: Vital Signs Temp Pulse Pulse Resp BP BP Pulse Ox 09/16/17 12:09 97.6 F 54 L 16 121/68 97 09/16/17 09:45 97.7 F 51 L 16 124/72 98 09/16/17 06:30 98.4 F 58 L 18 161/70 97 09/16/17 05:29 98.4 F 58 L 18 161/70 97 09/16/17 04:55 56 L 18 154/46 98 09/16/17 03:58 53 L 18 142/56 98 09/16/17 03:24 95 09/16/17 03:20 54 L 15 159/49 98 09/16/17 02:57 52 L 17 155/77 99 09/16/17 02:23 61 18 150/62 98 09/16/17 01:47 56 L 09/16/17 01:37 97.0 F L 59 L 15 153/68 99 Intake and Output 09/15/17 09/16/17 09/16/17 22:59 06:59 14:59 Other: # Voids 0 1 Weight 77.2 kg PHYSICAL EXAMINATION: GENERAL: HEENT: Head is atraumatic, normocephalic. Pupils equal, round. Sclera anicteric. Conjunctiva are clear. Mucous membranes of the mouth are moist. Neck is supple. There is no elevated jugular venous pressure.] bruit is heard. HEART EXAMINATION: Heart S1 and S2 systolic ejection murmur is heard CHEST EXAMINATION: Lungs are clear to auscultation and precussion. No chest wall tenderness is noted on palpation or with deep breathing. ABDOMEN: Soft, nontender. Bowel sounds are heard. No organomegaly noted. EXTREMITIES: 2+ peripheral pulses with no evidence of peripheral edema and no calf tenderness noted. NEUROLOGIC patient is awake, alert and oriented -3. . Results 09/16/17 01:42 09/16/17 01:42 Cardiac Enzymes 09/16/17 09/16/17 09/16/17 Range/Units 01:42 01:42 07:30 AST 24 (14-36) U/L CK-MB (CK-2) 2.3 2.3 (0.0-2.4) ng/mL Troponin I 0.023 0.020 (0.000-0.034) ng/mL Coagulation 09/16/17 Range/Units 01:42 PT 9.6 (9.0-12.0) sec APTT 22.6 (22.0-30.0) sec CBC 09/16/17 Range/Units 01:42 WBC 6.9 (3.8-10.6) k/uL RBC 3.01 L (3.80-5.40) m/uL Hgb 9.5 L (11.4-16.0) gm/dL Hct 29.9 L (34.0-46.0) % Plt Count 240 (150-450) k/uL Comprehensive Metabolic Panel 09/16/17 Range/Units 01:42 Sodium 144 (137-145) mmol/L Potassium 4.0 (3.5-5.1) mmol/L Chloride 107 (98-107) mmol/L Carbon Dioxide 24 (22-30) mmol/L BUN 56 H (7-17) mg/dL Creatinine 1.50 H (0.52-1.04) mg/dL Glucose 48 L* (74-99) mg/dL Calcium 9.5 (8.4-10.2) mg/dL AST 24 (14-36) U/L ALT 27 (9-52) U/L Alkaline Phosphatase 67 (38-126) U/L Total Protein 5.7 L (6.3-8.2) g/dL Albumin 3.4 L (3.5-5.0) g/dL Current Medications Generic Name Dose Route Start Last Admin Trade Name Freq PRN Reason Stop Dose Admin Acetaminophen 650 mg 09/16/17 03:24 Tylenol Tab PO Q4HR PRN Pain Acetaminophen 650 mg 09/16/17 21:00 Tylenol Tab PO HS RAFAT Hydrocodone Bitart/Acetaminophen 1 each 09/16/17 03:29 [place] 5-325 PO HS PRN Pain Allopurinol 100 mg 09/16/17 12:00 09/16/17 12:28 Zyloprim PO 100 mg DAILY@1200 RAFAT Administration Amlodipine Besylate 5 mg 09/16/17 09:00 09/16/17 12:28 Norvasc PO 5 mg BID RAFAT Administration Ascorbic Acid 500 mg 09/16/17 12:00 09/16/17 12:28 Vitamin C PO 500 mg DAILY@1200 [facility] Administration Aspirin 81 mg 09/17/17 09:00 Aspirin PO DAILY [facility] Atorvastatin Calcium 80 mg 09/16/17 12:00 09/16/17 12:28 Lipitor PO 80 mg DAILY@1200 [facility] Administration Baclofen 5 mg 09/16/17 21:00 Lioresal PO HS [facility] Cholecalciferol 2,000 unit 09/16/17 12:00 09/16/17 12:27 Vitamin D3 PO 2,000 unit DAILY@1200 [facility] Administration Doxazosin Mesylate 4 mg 09/16/17 09:00 09/16/17 12:27 Cardura PO 4 mg DAILY [facility] Administration Ferrous Sulfate 325 mg 09/16/17 09:00 09/16/17 12:28 Feosol PO 325 mg DAILY [facility] Administration Furosemide 40 mg 09/16/17 12:00 09/16/17 12:28 Lasix PO 40 mg DAILY@1200 [facility] Administration Heparin Sodium (Porcine) 5,000 unit 09/16/17 21:00 Heparin SQ Q12HR [facility] Hydralazine HCl 100 mg 09/16/17 09:00 09/16/17 12:28 Apresoline PO 100 mg BID [facility] Administration Sodium Chloride 1,000 mls @ 75 mls/hr 09/16/17 12:30 Saline 0.9% IV .[id number] [facility] Dobutamine HCl/Dextrose 500 mg 250 mls @ 23.16 mls/hr 09/16/17 12:31 / IV Solution IV 09/16/17 12:32 .[id number] ONE Protocol 10 MCG/KG/MIN Lidocaine HCl 1 applic 09/16/17 03:29 Lmx 4 TOPICAL DIRECTED PRN Pain Lorazepam 1 mg 09/16/17 03:29 Ativan PO DAILY PRN Anxiety Losartan Potassium 100 mg 09/16/17 09:00 09/16/17 12:28 Cozaar PO 100 mg DAILY [facility] Administration Nitroglycerin 0.4 mg 09/16/17 03:24 Nitrostat SUBLINGUAL Q5M PRN Chest Pain Nitroglycerin 1 patch 09/16/17 03:29 Nitro-Dur 0.2mg/Hr Patch TRANSDERM Q24H PRN Chest Pain Pantoprazole Sodium 40 mg 09/16/17 03:29 Protonix PO DAILY PRN Heartburn Potassium Citrate 20 meq 06/08/18 03:29 Urocit-K PO MOWEFR RAFAT Spironolactone 25 mg 09/16/17 09:00 09/16/17 12:28 Aldactone PO 25 mg BID RAFAT Administration Intake and Output 09/15/17 09/16/17 09/16/17 22:59 06:59 14:59 Other: # Voids 0 1 Weight 77.2 kg 09/16/17 01:42 09/16/17 01:42 EKG Interpretations (text) EKG shows normal sinus rhythm with first-degree AV block and T wave inversion noted in the inferior lateral leads. Assessment and Plan Plan: Assessment and plan #1 chest pain with some atypical features for acute coronary syndrome. Troponin 0.020, 0.0-3. EKG shows normal sinus rhythm with inferior lateral T- wave inversion. Elevated d-dimer, VQ scan and venous duplex study negative for blood clot in the lower extremities or the lungs. #2 known history of coronary artery disease with prior bypass surgery #3 diabetes, hypoglycemia on admission #4 hypertension #5 hyperlipidemia #6 mildly abnormal renal function with a creatinine of 1.5 Plan We will increase fluids to 75 mL an hour, decrease aspirin to 81 mg daily. We' ll schedule the patient for a stress test tomorrow. Start the patient on subcu heparin. Patient just recently had an echocardiogram with Doppler study performed in June of this year which revealed an ejection fraction of 55-60%, moderate tricuspid regurg. Further recommendations to follow. DNP note has been reviewed, I agree with a documented findings and plan of care. Patient was seen and examined.
[2017-09-16 14:37] LABS: Creatine Kinase MB 2.3 ng/mL (0.0-2.4); Troponin I 0.018 ng/mL (0.000-0.034)
--- NOTE | 2017-09-16 15:09 | P.HPIM ---
History of Present Illness H&P Date: 09/16/17 Chief Complaint: Chest pain This is an 82-year-old female patient of Dr. Harper with past medical history of coronary artery disease status post CABG in 2011 followed by myocardial infarction, diabetes mellitus type 2 insulin requiring, hyperlipidemia, hypertension, cervical stenosis, chronic back pain. She had a recent hospitalization in June of this year for acute episode of confusion and disorientation secondary to accelerated hypertension and hypoglycemia. She was also treated for acute kidney injury. Patient states that she follows with Dr. Diana and last saw him last week. There are no medication changes at that time. She last saw Dr. Perez 3 weeks ago. Patient has history of chest pain that started yesterday and felt like an elephant was on her chest with heaviness. She denies any sharp pain. No radiation. She put a nitro patch on that she only uses as needed and the pain went away but then she developed severe bilateral leg cramps. She states it was so bad that she was screaming in pain. Regarding her blood sugar, she states she took her medications as scheduled and also ate supper does not know why her blood sugar was low. She denies any symptoms with that. Patient came into [facility] emergency center for evaluation. Chest x-ray shows cardiomegaly with no acute cardiopulmonary disease. Patient' s d-dimer was elevated at 2.46. Hemoglobin at 9.5 which is her baseline. BUN 56 and creatinine 1.5. Her creatinine on last admission was 0.92. She is not a candidate for CT angiogram with creatinine of 1.5. Duplex of the bilateral lower extremity negative for DVT. Patient was started on Lovenox and admitted to the selective care unit. Troponins are 0.023 and 0.020. VQ scan is low probability for PE. Patient has been seen by cardiology with plan for dobutamine stress test tomorrow. Patient states she is chest pain-free. She states she has a little soreness in her chest only. Review of Systems All systems: negative Constitutional: Denies anorexia, Denies chills, Denies fever, Denies lethargy, Denies malaise, Denies poor appetite, Denies weakness Eyes: denies blurred vision, denies pain Ears, nose, mouth and throat: Denies dental pain, Denies headache, Denies mouth pain, Denies sore throat, Denies vertigo Cardiovascular: Reports chest pain, Denies decreased exercise tolerance, Denies dyspnea on exertion, Denies edema, Denies irregular heart beat, Denies leg edema , Denies lightheadedness, Denies palpitations, Denies shortness of breath, Denies syncope Respiratory: Denies cough, Denies cough with sputum, Denies dyspnea, Denies excessive sputum, Denies hemoptysis, Denies home oxygen, Denies wheezing Gastrointestinal: Denies abdominal pain, Denies diarrhea, Denies nausea, Denies vomiting Genitourinary: Denies dysuria, Denies hematuria Musculoskeletal: Reports muscle cramps, Reports muscle weakness, Denies myalgias Integumentary: Denies pruritus, Denies rash Neurological: Denies numbness, Denies weakness Psychiatric: Denies anxiety, Denies depression Endocrine: Denies fatigue, Denies weight change Past Medical History Past Medical History: Coronary Artery Disease (CAD), Heart Failure, Diabetes Mellitus, GERD/Reflux, Hyperlipidemia, Hypertension, Myocardial Infarction ([place]) , Osteoarthritis (OA), Pneumonia Additional Past Medical History / Comment(s): Hx Mitral regurgitation, anemia, reproductive problems when younger., NECK PAIN. Last Myocardial Infarction Date:: 08/2014 History of Any Multi-Drug Resistant Organisms: None Reported Past Surgical History: Cholecystectomy, Coronary Bypass/CABG, Hysterectomy Additional Past Surgical History / Comment(s): 8x D&C, CABG 7 Blockages, bilateral foot surgery to remove tumors Past Anesthesia/Blood Transfusion Reactions: No Reported Reaction Smoking Status: Never smoker Additional Past Alcohol Use History / Comment(s): Patient is and lives with her . She is active denies any use of walker or assistance. - Past Family History Mother Family Medical History: Cancer, Diabetes Mellitus Father Family Medical History: Congestive Heart Failure (CHF) Brother(s) Family Medical History: Cancer (Patient is lives with her , functionally active denies any need a walker or assistance) Medications and Allergies Home Medications Medication Instructions Recorded Confirmed Type Allopurinol 100 mg PO DAILY@1200 03/05/14 09/16/17 History Aspirin 162 mg PO HS 03/05/14 09/16/17 History Doxazosin Mesylate 4 mg PO DAILY 03/05/14 09/16/17 History Omeprazole 40 mg PO DAILY PRN 03/05/14 09/16/17 History LORazepam [Ativan] 1 mg PO DAILY PRN 09/23/14 09/16/17 History Ascorbic Acid [Vitamin C] 500 mg PO DAILY@1200 09/24/14 09/16/17 History Atorvastatin [Lipitor] 80 mg PO DAILY@1200 09/24/14 09/16/17 History Cholecalciferol [Vitamin D3] 2,000 unit PO DAILY 09/24/14 09/16/17 History Ferrous Sulfate [Feosol] 325 mg PO Q48H 09/24/14 09/16/17 History Nitroglycerin 0.2MG/Hr Patch 1 patch TRANSDERM Q24H PRN 09/24/14 09/16/17 History [Nitro-Dur 0.2MG/Hr Patch] Furosemide [Lasix] 40 mg PO MOFR 08/07/15 09/16/17 History INSULIN LISPRO (HumaLOG) [humaLOG] 20 units SQ AC-TID 08/07/15 09/16/17 History INSULIN LISPRO (HumaLOG) [humaLOG] See Protocol SQ DIRECTED PRN 08/07/1510/27 History Baclofen 10 mg PO HS PRN 10/22/15 09/16/17 History Acetaminophen [Tylenol 8 Hour] 650 mg PO HS PRN 11/18/15 09/16/17 History hydrALAZINE HCL [Apresoline] 100 mg PO TID 07/04/17 09/16/17 History Losartan [Cozaar] 100 mg PO DAILY #120 tab 07/07/17 09/16/17 Rx amLODIPine [Norvasc] 5 mg PO BID #60 tab 07/07/17 09/16/17 Rx Potassium Chloride [Klor-Con 10] 20 meq PO MOFR 09/16/17 09/16/17 History Spironolactone [Aldactone] 25 mg PO DAILY 09/16/17 09/16/17 History Allergies Allergy/AdvReac Type Severity Reaction Status Date / Time cortisone Allergy Rash/Hives Verified 09/16/17 01:40 morphine Allergy Unknown Verified 09/16/17 04:24 Penicillins Allergy Rash/Hives Verified 09/16/17 01:40 Physical Exam Vitals: Vital Signs Temp Pulse Pulse Resp BP BP Pulse Ox 09/16/17 09:45 97.7 F 51 L 16 124/72 98 09/16/17 06:30 98.4 F 58 L 18 161/70 97 09/16/17 05:29 98.4 F 58 L 18 161/70 97 09/16/17 04:55 56 L 18 154/46 98 09/16/17 03:58 53 L 18 142/56 98 09/16/17 03:24 95 09/16/17 03:20 54 L 15 159/49 98 09/16/17 02:57 52 L 17 155/77 99 09/16/17 02:23 61 18 150/62 98 09/16/17 01:47 56 L 09/16/17 01:37 97.0 F L 59 L 15 153/68 99 Intake and Output 09/15/17 09/16/17 09/16/17 22:59 06:59 14:59 Other: # Voids 0 1 Weight 77.2 kg General appearance: cooperative, no acute distress, obese - EENT Eyes: anicteric sclerae, PERRLA, normal appearance ENT: hearing grossly normal - Neck Neck: no lymphadenopathy, normal ROM, no other, no rigidity, no stridor, no thyromegaly - Respiratory Respiratory: bilateral: CTA, negative: diminished, dullness, rales, rhonchi - Cardiovascular Rhythm: regular Heart sounds: normal: S1, S2 Abnormal Heart Sounds: 3+ systolic murmur, no diastolic murmur, no rub, no S3 Gallop, no S4 Gallop, no click, no other - Gastrointestinal General gastrointestinal: normal bowel sounds, soft - Integumentary Integumentary: no rash - Neurologic Neurologic: CNII-XII intact - Musculoskeletal Musculoskeletal: gait normal, strength equal bilaterally - Psychiatric Psychiatric: A&O x's 3, appropriate affect Results CBC & Chem 7: 09/16/17 01:42 09/16/17 01:42 Labs: Abnormal Lab Results - Last 24 Hours (Table) 09/16/17 09/16/17 09/16/17 Range/Units 01:42 01:42 01:42 RBC 3.01 L (3.80-5.40) m/uL Hgb 9.5 L (11.4-16.0) gm/dL Hct 29.9 L (34.0-46.0) % D-Dimer 2.46 H (<0.60) mg/L FEU BUN 56 H (7-17) mg/dL Creatinine 1.50 H (0.52-1.04) mg/dL Glucose 48 L* (74-99) mg/dL POC Glucose (mg/dL) (75-99) mg/dL Total Protein 5.7 L (6.3-8.2) g/dL Albumin 3.4 L (3.5-5.0) g/dL 09/16/17 09/16/17 09/16/17 Range/Units 02:29 03:27 06:24 RBC (3.80-5.40) m/uL Hgb (11.4-16.0) gm/dL Hct (34.0-46.0) % D-Dimer (<0.60) mg/L FEU BUN (7-17) mg/dL Creatinine (0.52-1.04) mg/dL Glucose (74-99) mg/dL POC Glucose (mg/dL) 63 L 162 H 153 H (75-99) mg/dL Total Protein (6.3-8.2) g/dL Albumin (3.5-5.0) g/dL Thrombosis Risk Factor Assmnt - DVT/VTE Prophylaxis DVT/VTE Prophylaxis: Pharmacologic Prophylaxis ordered Assessment and Plan Plan: 1. Chest pain with relief with nitroglycerin. Serial troponins. Cardiology consult is appreciated. Aspirin changed 81 mg and order for stress testing tomorrow. 2. Acute kidney injury on chronic kidney disease stage III. Avoid nephrotoxic agents. Patient is on normal saline at 75 mL per hour. 3. Hypoglycemia. Patient's insulins will be placed on hold and continue scale insulin only. 4. Chronic systolic heart failure not in exacerbation. Continue Lasix 40 mg orally daily, losartan 100 mg daily, spironolactone 25 mg twice daily. 5. Hypertension. Continue Norvasc, losartan, hydralazine. 6. Diabetes mellitus type 2, insulin requiring. 7. Anemia of chronic disease. 8. Gastroesophageal reflux disease and GI prophylaxis. Protonix. 9. Hyperlipidemia. Continue atorvastatin 80 mg daily. 10. DVT prophylaxis. Subcu heparin Patient placed as an observation status. Discharge plan: Return home Impression and plan of care have been directed as dictated by the signing physician. Talia Schneider nurse practitioner acting as scribe for signing physician.
[2017-09-16 17:12] LABS: Glucose,Whole Blood 122 mg/dL (75-99)
[2017-09-16] MEDS: INSULIN ASPART 100 UNIT/ML 1 ML 10 ML VIAL SQ SCH ×2 (18:00→22:30)
[2017-09-16] MEDS: LORazepam 1 MG TAB PO PRN (19:59)
[2017-09-16] MEDS: BACLOFEN 10 MG TAB PO SCH (20:45)
[2017-09-16] MEDS: HEPARIN SODIUM,PORCINE 5,000 UNIT/ML 1 ML VIAL SQ SCH (20:46)
[2017-09-16] MEDS: SODIUM CHLORIDE 0.9% 1,000 ML IV SCH (20:48)
[2017-09-16 21:08] LABS: Glucose,Whole Blood 120 mg/dL (75-99)
[2017-09-16] MEDS: ACETAMINOPHEN TAB 325 MG TAB PO SCH (22:29)
[2017-09-17 03:10] LABS: Cholesterol 114 mg/dL (<200); HDL Cholesterol 39 mg/dL (40-60); LDL Cholesterol,Calculated 59 mg/dL (0-99); Triglycerides 78 mg/dL (<150)
[2017-09-17] MEDS ORDERED: POTASSIUM CITRATE 10 MEQ TABLET.ER PO SCH (03:29)
[2017-09-17] MEDS: SODIUM CHLORIDE 0.9% 1,000 ML IV SCH (03:36)
[2017-09-17 04:25] LABS: Hemoglobin A1C 6.4 % (4.0-6.0)
[2017-09-17] MEDS ORDERED: DOBUTamine DRIP for NUC MED 500 MG/250 ML BAG IV ONE (06:00)
[2017-09-17] MEDS: INSULIN ASPART 100 UNIT/ML 1 ML 10 ML VIAL SQ SCH ×4 (06:03→20:56)
[2017-09-17 06:14] LABS: Glucose,Whole Blood 116 mg/dL (75-99)
[2017-09-17] MEDS ORDERED: ASPIRIN 325 MG TAB PO SCH (09:00)
[2017-09-17] MEDS ORDERED: hydrALAZINE HCL 20 MG/ML 1 ML VIAL IVP PRN (10:13)
[2017-09-17] MEDS: ASPIRIN 81 MG PO SCH (11:22)
[2017-09-17] MEDS: HEPARIN SODIUM,PORCINE 5,000 UNIT/ML 1 ML VIAL SQ SCH ×2 (11:22→20:55)
[2017-09-17] MEDS: FERROUS SULFATE 325 MG TAB PO SCH (11:22)
[2017-09-17] MEDS: DOXAZOSIN 4 MG TAB PO SCH (11:22)
[2017-09-17] MEDS: hydrALAZINE HCL 50 MG TAB PO SCH ×2 (11:22→20:55)
[2017-09-17] MEDS: ASCORBIC ACID 500 MG TAB PO SCH (11:23)
[2017-09-17] MEDS: SPIRONOLACTONE 25 MG TAB PO SCH ×2 (11:23→20:56)
[2017-09-17] MEDS: LOSARTAN 50 MG TAB PO SCH (11:23)
[2017-09-17] MEDS: ALLOPURINOL 100 MG TAB PO SCH (11:23)
[2017-09-17] MEDS: ATORVASTATIN 80 MG TAB PO SCH (11:24)
[2017-09-17] MEDS: amLODIPine 5 MG TAB PO SCH ×2 (11:24→20:55)
[2017-09-17] MEDS: CHOLECALCIFEROL 1,000 UNIT TAB PO SCH (11:24)
[2017-09-17] MEDS: FUROSEMIDE 40 MG TAB PO SCH (11:24)
--- NOTE | 2017-09-17 11:39 | P.PN ---
Subjective Progress Note Date: 09/17/17 This is a pleasant 82-year-old female with history of coronary artery disease and prior bypass surgery in 2012, hypertension, diabetes, hyperlipidemia. She is to follow with Dr. Sim in the office. He presents to the hospital with symptoms of chest discomfort which she states worsened with taking a deep breath. Chest x-ray performed on arrival here showed cardiomegaly with no active cardiopulmonary disease. D-dimer was positive and therefore patient was scheduled to undergo a VQ scan was low probability for PE , bilateral venous duplex study negative for DVT in either leg. EKG showed normal sinus rhythm with first-degree AV block and nonspecific ST-T wave changes. But pressure on arrival 152/68 with a heart rate of 58, 99% on room air. Blood pressure this morning 120/60 with a heart rate in the low 50s. White blood cell count 6.9, hemoglobin 9.5, platelet count 240. D-dimer 2.4, sodium 144, potassium 4.0, BUN 56, creatinine 1.5. Blood sugar on arrival 48. Troponins 0.020, 0.023. At the time of our examination, patient was chest pain- free. 09/17/2017 Patient was seen and examined this morning, denied any further symptoms of chest discomfort. Troponins 0.0-3, 0.020, 0.018. She is scheduled today to undergo dobutamine echocardiographic study. If the stress test is negative, patient may be able to be discharged from cardiology's perspective, we will follow up in the office post discharge. Objective - Vital Signs Vital signs: Vital Signs Temp 97.1 F L 09/17/17 08:00 Pulse 60 09/17/17 10:50 Resp 16 09/17/17 10:50 BP 176/66 09/17/17 10:50 Pulse Ox 97 09/17/17 10:50 Intake & Output 09/16/17 09/17/17 09/17/17 18:59 06:59 18:59 Intake Total 200 Balance 200 Weight 78.3 kg Intake: Oral 200 Other: Voiding Method Incontinent # Voids 1 1 - Exam HEENT: Head is atraumatic, normocephalic. Pupils equal, round. Sclera anicteric. Conjunctiva are clear. Mucous membranes of the mouth are moist. Neck is supple. There is no elevated jugular venous pressure.] bruit is heard. HEART EXAMINATION: Heart S1 and S2 systolic ejection murmur is heard CHEST EXAMINATION: Lungs are clear to auscultation and precussion. No chest wall tenderness is noted on palpation or with deep breathing. ABDOMEN: Soft, nontender. Bowel sounds are heard. No organomegaly noted. EXTREMITIES: 2+ peripheral pulses with no evidence of peripheral edema and no calf tenderness noted. NEUROLOGIC patient is awake, alert and oriented -3. - Labs CBC & Chem 7: 09/16/17 01:42 09/16/17 01:42 Labs: Abnormal Lab Results - Last 24 Hours (Table) 09/16/17 09/16/17 09/16/17 Range/Units 01:42 01:49 11:47 POC Glucose (mg/dL) 102 H (75-99) mg/dL Hemoglobin A1c 6.4 H (4.0-6.0) % HDL Cholesterol 39 L (40-60) mg/dL 09/16/17 09/16/17 09/17/17 Range/Units 17:11 21:05 06:02 POC Glucose (mg/dL) 122 H 120 H 116 H (75-99) mg/dL Hemoglobin A1c (4.0-6.0) % HDL Cholesterol (40-60) mg/dL Assessment and Plan Plan: Assessment and plan #1 chest pain with some atypical features for acute coronary syndrome. Troponin 0.020, 0.0-3. EKG shows normal sinus rhythm with inferior lateral T- wave inversion. Elevated d-dimer, VQ scan and venous duplex study negative for blood clot in the lower extremities or the lungs. #2 known history of coronary artery disease with prior bypass surgery #3 diabetes, hypoglycemia on admission #4 hypertension #5 hyperlipidemia #6 mildly abnormal renal function Plan Patient was scheduled today to undergo dobutamine echocardiographic study. If negative patient may be able to be discharged from cardiology's perspective. If the test is positive, further recommendations then will be made. DNP note has been reviewed, I agree with a documented findings and plan of care. Patient was seen and examined.
[2017-09-17 11:45] LABS: Glucose,Whole Blood 147 mg/dL (75-99)
[2017-09-17] MEDS ORDERED: INSULIN ASPART 100 UNIT/ML 1 ML 10 ML VIAL SQ SCH ×2 (12:30→17:30)
--- NOTE | 2017-09-17 12:48 | ECHOS ---
STRESS ECHOCARDIOGRAM INDICATIONS: Chest pain. BASELINE HEART RATE: 57 BASELINE BLOOD PRESSURE: 168/45 MAXIMUM HEART RATE: 121 MAXIMUM BLOOD PRESSURE: 146/28 85% MPHR: 118. 100% MPHR: 139 MAXIMUM STAGE REACHED: III TOTAL EXERCISE TIME: 8:45 CLINICAL INFORMATION: Patient was given dobutamine infusion according to the standard protocol. peak heart rate of 121 was achieved. Maximum blood pressure of 146/28 mmHg was noted the resting EKG shows normal sinus rhythm with ST-T changes suggestive of left ventricular hypertrophy with a strange pattern. During dobutamine infusion, again ST-segment depression was noted. The baseline echocardiographic images reveal severe degree of left ventricular hypertrophy with normal left ventricular systolic function. At the peak dose of dobutamine infusion. Normal increase in the wall thickness and contractility was noted. FINAL IMPRESSION: This dobutamine stress echocardiographic study is negative for stress-induced ischemia. EKG portion of the stress is inconclusive to diagnose ischemia, no dysrhythmias were noted. MMODL / IJN: [id number] /
[2017-09-17 12:52] LABS: Calcium 9.4 mg/dL (8.4-10.2); Potassium 4.3 mmol/L (3.5-5.1)
--- NOTE | 2017-09-17 14:38 | P.PN ---
Subjective Progress Note Date: 09/17/17 This is an 82-year-old female patient of Dr. Bill. with past medical history of coronary artery disease status post CABG in 2011 followed by myocardial infarction, diabetes mellitus type 2 insulin requiring, hyperlipidemia, hypertension, cervical stenosis, chronic back pain. She had a recent hospitalization in June of this year for acute episode of confusion and disorientation secondary to accelerated hypertension and hypoglycemia. She was also treated for acute kidney injury. Patient states that she follows with Dr. Diana and last saw him last week. There are no medication changes at that time. She last saw Dr. Perez 3 weeks ago. Patient has history of chest pain that started yesterday and felt like an elephant was on her chest with heaviness. She denies any sharp pain. No radiation. She put a nitro patch on that she only uses as needed and the pain went away but then she developed severe bilateral leg cramps. She states it was so bad that she was screaming in pain. Regarding her blood sugar, she states she took her medications as scheduled and also ate supper does not know why her blood sugar was low. She denies any symptoms with that. Patient came into [facility] emergency center for evaluation. Chest x-ray shows cardiomegaly with no acute cardiopulmonary disease. Patient' s d-dimer was elevated at 2.46. Hemoglobin at 9.5 which is her baseline. BUN 56 and creatinine 1.5. Her creatinine on last admission was 0.92. She is not a candidate for CT angiogram with creatinine of 1.5. Duplex of the bilateral lower extremity negative for DVT. Patient was started on Lovenox and admitted to the selective care unit. Troponins are 0.023 and 0.020. VQ scan is low probability for PE. Patient has been seen by cardiology with plan for dobutamine stress test tomorrow. Patient states she is chest pain-free. She states she has a little soreness in her chest only. 09/17: Patient has undergone dobutamine stress echocardiogram which is negative for stress-induced ischemia and she has been cleared for discharge from cardiology. BUN is 36 and creatinine 1.10. Patient's tells us that patient took her own insulin yesterday although it was not ordered and nursing staff did not know about this. Her blood sugars have been running in a good range. We will plan to monitor the patient overnight as she came in with hypoglycemia. Patient scheduled NovoLog was adjusted from 20 units 3 times daily with meals to 20 units with breakfast, 15 units with lunch and supper. Patient will be discharged home tomorrow. Objective - Vital Signs Vital signs: Vital Signs Temp 97.1 F L 09/17/17 08:00 Pulse 60 09/17/17 10:50 Resp 16 09/17/17 10:50 BP 176/66 09/17/17 10:50 Pulse Ox 97 09/17/17 10:50 Intake & Output 09/16/17 09/17/17 09/17/17 18:59 06:59 18:59 Intake Total 200 150 Balance 200 150 Weight 78.3 kg Intake: Intake, IV Titration 150 Amount Sodium Chloride 0.9% 1, 150 000 ml @ 75 mls/hr IV . [id number] [facility] Rx#:[id number] Oral 200 Other: Voiding Method Incontinent Incontinent # Voids 1 1 2 - Exam General appearance: cooperative, no acute distress, obese - EENT Eyes: anicteric sclerae, PERRLA, normal appearance ENT: hearing grossly normal - Neck Neck: no lymphadenopathy, normal ROM, no other, no rigidity, no stridor, no thyromegaly - Respiratory Respiratory: bilateral: CTA, negative: diminished, dullness, rales, rhonchi - Cardiovascular Rhythm: regular Heart sounds: normal: S1, S2 Abnormal Heart Sounds: 3+ systolic murmur, no diastolic murmur, no rub, no S3 Gallop, no S4 Gallop, no click, no other - Gastrointestinal General gastrointestinal: normal bowel sounds, soft - Integumentary Integumentary: no rash - Neurologic Neurologic: CNII-XII intact - Musculoskeletal Musculoskeletal: gait normal, strength equal bilaterally - Psychiatric Psychiatric: A&O x's 3, appropriate affect - Labs CBC & Chem 7: 09/16/17 01:42 09/17/17 12:15 Labs: Abnormal Lab Results - Last 24 Hours (Table) 09/16/17 09/16/17 09/16/17 Range/Units 01:42 01:49 17:11 Chloride (98-107) mmol/L BUN (7-17) mg/dL Creatinine (0.52-1.04) mg/dL Glucose (74-99) mg/dL POC Glucose (mg/dL) 122 H (75-99) mg/dL Hemoglobin A1c 6.4 H (4.0-6.0) % HDL Cholesterol 39 L (40-60) mg/dL 09/16/17 09/17/17 09/17/17 Range/Units 21:05 06:02 11:42 Chloride (98-107) mmol/L BUN (7-17) mg/dL Creatinine (0.52-1.04) mg/dL Glucose (74-99) mg/dL POC Glucose (mg/dL) 120 H 116 H 147 H (75-99) mg/dL Hemoglobin A1c (4.0-6.0) % HDL Cholesterol (40-60) mg/dL 09/17/17 Range/Units 12:15 Chloride 110 H (98-107) mmol/L BUN 36 H (7-17) mg/dL Creatinine 1.10 H (0.52-1.04) mg/dL Glucose 151 H (74-99) mg/dL POC Glucose (mg/dL) (75-99) mg/dL Hemoglobin A1c (4.0-6.0) % HDL Cholesterol (40-60) mg/dL Assessment and Plan Plan: 1. Chest pain with relief with nitroglycerin. Serial troponins. Cardiology consult is appreciated. Aspirin changed 81 mg. stress test is negative patient cleared for discharge.. 2. Acute kidney injury on chronic kidney disease stage III. Avoid nephrotoxic agents. Off IV fluids. 3. Hypoglycemia. Resumed on lower dose of NovoLog. 4. Chronic systolic heart failure not in exacerbation. Continue Lasix 40 mg orally daily, losartan 100 mg daily, spironolactone 25 mg twice daily. 5. Hypertension. Continue Norvasc, losartan, hydralazine. 6. Diabetes mellitus type 2, insulin requiring. 7. Anemia of chronic disease. 8. Gastroesophageal reflux disease and GI prophylaxis. Protonix. 9. Hyperlipidemia. Continue atorvastatin 80 mg daily. 10. DVT prophylaxis. Subcu heparin Discharge plan: Return home Impression and plan of care have been directed as dictated by the signing physician. Talia Schneider nurse practitioner acting as scribe for signing physician.
[2017-09-17 17:05] LABS: Glucose,Whole Blood 104 mg/dL (75-99)
[2017-09-17 20:23] LABS: Glucose,Whole Blood 128 mg/dL (75-99)
[2017-09-17] MEDS: BACLOFEN 10 MG TAB PO SCH (20:55)
[2017-09-17] MEDS: LORazepam 1 MG TAB PO PRN (20:56)
[2017-09-17] MEDS: ACETAMINOPHEN TAB 325 MG TAB PO SCH (21:00)
[2017-09-18 02:25] LABS: Glucose,Whole Blood 131 mg/dL (75-99)
[2017-09-18 05:56] VITALS: BP 191/50; RESP 18; TEMP 97.8
[2017-09-18] MEDS: hydrALAZINE HCL 50 MG TAB PO SCH (06:12)
[2017-09-18] MEDS: amLODIPine 5 MG TAB PO SCH (06:12)
[2017-09-18 06:51] LABS: Glucose,Whole Blood 125 mg/dL (75-99)
[2017-09-18] MEDS: INSULIN ASPART 100 UNIT/ML 1 ML 10 ML VIAL SQ SCH (07:26)
[2017-09-18] MEDS ORDERED: INSULIN ASPART 100 UNIT/ML 1 ML 10 ML VIAL SQ SCH (07:30)
[2017-09-18] MEDS: FERROUS SULFATE 325 MG TAB PO SCH (07:37)
[2017-09-18] MEDS: LOSARTAN 50 MG TAB PO SCH (07:37)
[2017-09-18] MEDS: DOXAZOSIN 4 MG TAB PO SCH (07:37)
[2017-09-18] MEDS: SPIRONOLACTONE 25 MG TAB PO SCH (07:37)
[2017-09-18] MEDS: ASPIRIN 81 MG PO SCH (07:38)
[2017-09-18] MEDS: HEPARIN SODIUM,PORCINE 5,000 UNIT/ML 1 ML VIAL SQ SCH (07:41)
[2017-09-18 09:44] VITALS: PULSE 62
--- NOTE | 2017-09-18 11:19 | P.DS ---
Providers Date of admission: 09/17/17 08:27 Attending physician: Jayashree Ching Consults: 09/16/17 03:24 Consult Physician Urgent Consulting Provider: Chris Baker Consult Reason/Comments: Chest pain with a history of ischemic heart disease Do you want consulting provider notified?: Yes Primary care physician: Leela Bill [facility] Course: This is 82 years old female who presented to the emergency department with new onset chest pain. Patient was evaluated by cardiology who recommended stress test and that turned to be negative. Patient felt stable from the medical standpoint cardiology cleared patient for discharge and follow-up closely with her primary care physician outpatient plan discussed with the patient and her family at the bedside and patient was discharged home in stable condition to follow up with her primary care physician regarding other causes for her chest pain which felt to be related to musculoskeletal pain Patient Condition at Discharge: Good Plan - Discharge Summary Discharge Rx Participant: No New Discharge Prescriptions: No Action Omeprazole 40 mg PO DAILY PRN PRN Reason: Heartburn Aspirin 162 mg PO HS Allopurinol 100 mg PO DAILY@1200 Doxazosin Mesylate 4 mg PO DAILY LORazepam [Ativan] 1 mg PO DAILY PRN PRN Reason: Anxiety Nitroglycerin 0.2MG/Hr Patch [Nitro-Dur 0.2MG/Hr Patch] 1 patch TRANSDERM Q24H PRN PRN Reason: Chest Pain Ferrous Sulfate [Feosol] 325 mg PO Q48H Cholecalciferol [Vitamin D3] 2,000 unit PO DAILY Ascorbic Acid [Vitamin C] 500 mg PO DAILY@1200 Atorvastatin [Lipitor] 80 mg PO DAILY@1200 Furosemide [Lasix] 40 mg PO MOFR INSULIN LISPRO (HumaLOG) [humaLOG] 20 units SQ AC-TID INSULIN LISPRO (HumaLOG) [humaLOG] See Protocol SQ DIRECTED PRN PRN Reason: SNACK Baclofen 10 mg PO HS PRN PRN Reason: Muscle Spasm Acetaminophen [Tylenol 8 Hour] 650 mg PO HS PRN PRN Reason: Pain hydrALAZINE HCL [Apresoline] 100 mg PO TID amLODIPine [Norvasc] 5 mg PO BID #60 tab Losartan [Cozaar] 100 mg PO DAILY #120 tab Potassium Chloride [Klor-Con 10] 20 meq PO MOFR Spironolactone [Aldactone] 25 mg PO DAILY Discharge Medication List Allopurinol 100 mg PO DAILY@1200 03/05/14 [History] Aspirin 162 mg PO HS 03/05/14 [History] Doxazosin Mesylate 4 mg PO DAILY 03/05/14 [History] Omeprazole 40 mg PO DAILY PRN 03/05/14 [History] LORazepam [Ativan] 1 mg PO DAILY PRN 09/23/14 [History] Ascorbic Acid [Vitamin C] 500 mg PO DAILY@1200 09/24/14 [History] Atorvastatin [Lipitor] 80 mg PO DAILY@1200 09/24/14 [History] Cholecalciferol [Vitamin D3] 2,000 unit PO DAILY 09/24/14 [History] Ferrous Sulfate [Feosol] 325 mg PO Q48H 09/24/14 [History] Nitroglycerin 0.2MG/Hr Patch [Nitro-Dur 0.2MG/Hr Patch] 1 patch TRANSDERM Q24H PRN 09/24/14 [History] Furosemide [Lasix] 40 mg PO MOFR 08/07/15 [History] INSULIN LISPRO (HumaLOG) [humaLOG] 20 units SQ AC-TID 08/07/15 [History] INSULIN LISPRO (HumaLOG) [humaLOG] See Protocol SQ DIRECTED PRN 08/07/15 [ History] Baclofen 10 mg PO HS PRN 10/22/15 [History] Acetaminophen [Tylenol 8 Hour] 650 mg PO HS PRN 11/18/15 [History] hydrALAZINE HCL [Apresoline] 100 mg PO TID 07/04/17 [History] Losartan [Cozaar] 100 mg PO DAILY #120 tab 07/07/17 [Rx] amLODIPine [Norvasc] 5 mg PO BID #60 tab 07/07/17 [Rx] Potassium Chloride [Klor-Con 10] 20 meq PO MOFR 09/16/17 [History] Spironolactone [Aldactone] 25 mg PO DAILY 09/16/17 [History] Follow up Appointment(s)/Referral(s): Leela Bill MD [Primary Care Provider] - 1-2 days Patient Instructions/Handouts: Viral Pneumonia (DC)
== END 2017-09-18 12:32 | disposition home or self-care (01) | DRG 313 ==
LOC: EC 01:31 → 6SEL 03:24 → OBSVTOIN 09-17 08:27 → 5MS5E 09-17 19:25
PROVIDERS: ADMIT Family Medicine; ATTEND Family Medicine
DX: R07.89 Other chest pain (principal); I13.0 Hypertensive heart and chronic kidney disease with heart failure and stage 1 through stage 4 chronic kidney disease, or unspecified chronic kidney disease; I50.22 Chronic systolic (congestive) heart failure; N17.9 Acute kidney failure, unspecified; D63.8 Anemia in other chronic diseases classified elsewhere; E11.22 Type 2 diabetes mellitus with diabetic chronic kidney disease; E11.649 Type 2 diabetes mellitus with hypoglycemia without coma; M48.02 Spinal stenosis, cervical region; I34.0 Nonrheumatic mitral (valve) insufficiency; N18.3 Chronic kidney disease, stage 3 (moderate); E78.5 Hyperlipidemia, unspecified; I25.10 Atherosclerotic heart disease of native coronary artery without angina pectoris; I25.2 Old myocardial infarction; R32 Unspecified urinary incontinence; I44.0 Atrioventricular block, first degree; K21.9 Gastro-esophageal reflux disease without esophagitis; R79.1 Abnormal coagulation profile; G89.29 Other chronic pain; M19.90 Unspecified osteoarthritis, unspecified site; M54.9 Dorsalgia, unspecified; M79.604 Pain in right leg; M79.605 Pain in left leg; E66.9 Obesity, unspecified; Z68.28 Body mass index [BMI] 28.0-28.9, adult; Z79.4 Long term (current) use of insulin; Z79.82 Long term (current) use of aspirin; Z79.899 Other long term (current) drug therapy; Z90.710 Acquired absence of both cervix and uterus; Z95.1 Presence of aortocoronary bypass graft; Z90.49 Acquired absence of other specified parts of digestive tract; Z88.0 Allergy status to penicillin; Z88.8 Allergy status to other drugs, medicaments and biological substances; Z87.01 Personal history of pneumonia (recurrent); Z82.49 Family history of ischemic heart disease and other diseases of the circulatory system; Z83.3 Family history of diabetes mellitus
CPT/HCPCS: 36415; 71046; 78582; 80048; 80053; 80061; 82550; 82553; 83036; 83735; 84484; 85025; 85379; 85610; 85730; 93005; 93351; 93970; 94760; 96361; 96372; 96374; 99291

== ENCOUNTER 2018-02-10 03:20 | Emergency (ER) | payer MEDICARE ==
[2018-02-10 03:31] VITALS: TEMP 97.9
[2018-02-10 06:41] LABS: Appearance,Urine Clear (Clear); Bacteria,Urine Few /hpf; Bilirubin,Urine Negative (Negative); Blood,Urine Negative (Negative); Color,Urine Light Yellow; Glucose,Urine (UA) Negative (Negative); Ketones,Urine Negative (Negative); Leukocyte Esterase,Urine Small (Negative); Mucus,Urine Rare /hpf; Nitrite,Urine Negative (Negative); Protein,Urine Negative (Negative); RBC,Urine <1 /hpf (0-5); Specific Gravity,Urine 1.011 (1.001-1.035); Squamous Epithelial Cell,Urine 1 /hpf (0-4); Urobilinogen,Urine <2.0 mg/dL (<2.0); WBC,Urine 6 /hpf (0-5)
--- NOTE | 2018-02-10 07:37 | ED ---
General Adult HPI - General Source: patient Mode of arrival: wheelchair Limitations: no limitations <Raya Boone - Last Filed: 02/10/18 07:27> <Elver Marshall - Last Filed: 02/10/18 10:18> - General Chief complaint: Fall Stated complaint: fall Time Seen by Provider: 02/10/18 04:54 - History of Present Illness Initial comments: Patient is an 83-year-old female is brought to the ED today by her for evaluation of recurrent falls. reports that over the past 2 and half months she seems to be more unsteady on her feet and it seems that her legs give out from under her. Patient reports that she'll just be walking and her legs feel weak and she falls to her knees. She rarely falls and any other direction. She reports her only complaint is pain in her knees due to falling. Patient has seen her primary care physician about this who suspects that this is all due to arthritis in her hip. He recommended the patient start physical therapy. The patient is actually scheduled to start physical therapy at 2 PM today. Patient reports that when she got out of bed this morning was attempting to walk to the bathroom her legs gave out from under her and she fell to her knees. Her states that he is just fed up with this happening and he wants answers so he brought to the ER this morning. Patient has been denying any mental status changes, confusion, urinary incontinence. (Raya Boone) - Related Data Home Medications Medication Instructions Recorded Confirmed Allopurinol 100 mg PO DAILY@1200 03/05/14 09/16/17 Aspirin 162 mg PO HS 03/05/14 09/16/17 Doxazosin Mesylate 4 mg PO DAILY 03/05/14 09/16/17 Omeprazole 40 mg PO DAILY PRN 03/05/14 09/16/17 LORazepam [Ativan] 1 mg PO DAILY PRN 09/23/14 09/16/17 Ascorbic Acid [Vitamin C] 500 mg PO DAILY@1200 09/24/14 09/16/17 Atorvastatin [Lipitor] 80 mg PO DAILY@1200 09/24/14 09/16/17 Cholecalciferol [Vitamin D3] 2,000 unit PO DAILY 09/24/14 09/16/17 Ferrous Sulfate [Feosol] 325 mg PO Q48H 09/24/14 09/16/17 Nitroglycerin 0.2MG/Hr Patch 1 patch TRANSDERM Q24H PRN 09/24/14 09/16/17 [Nitro-Dur 0.2MG/Hr Patch] Furosemide [Lasix] 40 mg PO MOFR 08/07/15 09/16/17 INSULIN LISPRO (HumaLOG) [humaLOG] 20 units SQ AC-TID 08/07/15 09/16/17 INSULIN LISPRO (HumaLOG) [humaLOG] See Protocol SQ DIRECTED PRN 08/07/1510/27 Baclofen 10 mg PO HS PRN 10/22/15 09/16/17 Acetaminophen [Tylenol 8 Hour] 650 mg PO HS PRN 11/18/15 09/16/17 hydrALAZINE HCL [Apresoline] 100 mg PO TID 07/04/17 09/16/17 Potassium Chloride [Klor-Con 10] 20 meq PO MOFR 09/16/17 09/16/17 Spironolactone [Aldactone] 25 mg PO DAILY 09/16/17 09/16/17 Previous Rx's Medication Instructions Recorded Losartan [Cozaar] 100 mg PO DAILY #120 tab 07/07/17 amLODIPine [Norvasc] 5 mg PO BID #60 tab 07/07/17 Allergies Allergy/AdvReac Type Severity Reaction Status Date / Time cortisone Allergy Rash/Hives Verified 02/10/18 03:31 morphine Allergy Unknown Verified 02/10/18 03:31 Penicillins Allergy Rash/Hives Verified 02/10/18 03:31 Review of Systems ROS Other: All systems not noted in ROS Statement are negative. <Raya Boone - Last Filed: 02/10/18 07:27> ROS Other: All systems not noted in ROS Statement are negative. <Elver Marshall - Last Filed: 02/10/18 10:18> ROS Statement: Those systems with pertinent positive or pertinent negative responses have been documented in the HPI. Past Medical History Past Medical History: Coronary Artery Disease (CAD), Heart Failure, Diabetes Mellitus, GERD/Reflux, Hyperlipidemia, Hypertension, Myocardial Infarction (MD) , Osteoarthritis (OA), Pneumonia Additional Past Medical History / Comment(s): Hx Mitral regurgitation, anemia, reproductive problems when younger., NECK PAIN. Last Myocardial Infarction Date:: 08/2014 History of Any Multi-Drug Resistant Organisms: None Reported Past Surgical History: Cholecystectomy, Coronary Bypass/CABG, Hysterectomy Additional Past Surgical History / Comment(s): 8x D&C, CABG 7 Blockages, bilateral foot surgery to remove tumors Past Anesthesia/Blood Transfusion Reactions: No Reported Reaction Past Psychological History: No Psychological Hx Reported Smoking Status: Never smoker - Past Family History Mother Family Medical History: Cancer, Diabetes Mellitus Additional Family Medical History / Comment(s): Mother had breast cancer. Father Family Medical History: Congestive Heart Failure (CHF) Brother(s) Family Medical History: Cancer (Patient is lives with her , functionally active denies any need a walker or assistance) <Raya Boone - Last Filed: 02/10/18 07:27> General Exam Limitations: no limitations <Raya Boone - Last Filed: 02/10/18 07:27> <Elver Marshall - Last Filed: 02/10/18 10:18> - General Exam Comments Initial Comments: Physical Exam GENERAL: Patient is well-developed and well-nourished. Patient is nontoxic and well- hydrated and is in no distress. HENT: Normocephalic, Atraumatic. EYES: PERRL, EOMI PULMONARY: Unlabored respirations. No audible rales rhonchi or wheezing was noted. CARDIOVASCULAR: There is a regular rate and rhythm Holosystolic murmur ABDOMEN: Soft and nontender with normal bowel sounds. SKIN: Contusions to bilateral knees, different stages of healing : Deferred NEUROLOGIC: Patient is alert and oriented x3. Moving all extremities spontaneously MUSCULOSKELETAL: Normal extremities with adequate strength and full range of motion. No lower extremity swelling or edema. No calf tenderness. PSYCHIATRIC: Normal psychiatric evaluation. Limitations: no limitations (Raya Boone) Vital Signs 02/10/18 02/10/18 02/10/18 03:23 05:09 05:30 Temperature 97.9 F Pulse Rate 61 60 54 L Respiratory 16 10 L 29 H Rate Blood Pressure 225/77 239/68 O2 Sat by Pulse 98 97 97 Oximetry 02/10/18 02/10/18 02/10/18 06:00 06:30 09:14 Temperature Pulse Rate 53 L 65 Respiratory 18 18 Rate Blood Pressure 239/68 239/68 227/64 O2 Sat by Pulse 96 96 Oximetry 02/10/18 02/10/18 09:30 10:10 Temperature Pulse Rate 60 61 Respiratory 21 18 Rate Blood Pressure 227/64 216/89 O2 Sat by Pulse 98 Oximetry EKG Findings - EKG Comments: EKG Findings:: EKG obtained at 7:23 AM, rate is 54 rhythm is sinus bradycardia with first-degree AV block, NH 326, as is 102, QTc is 468. No acute ST elevations no evidence of acute infarction. <Raya Boone - Last Filed: 02/10/18 07:27> Medical Decision Making <Raya Boone - Last Filed: 02/10/18 07:27> - Lab Data Result diagrams: 02/10/18 06:37 02/10/18 09:03 <Elver Marshall - Last Filed: 02/10/18 10:18> - Medical Decision Making The patient was seen and evaluated Patient with frequent falls, described as weakness in her legs, has seen her PCP for this, is scheduled to start PT later today requesting labs because he believes something is wrong, labs ordered Patient resting comfortably in the [facility] Patient care signed out to Dr. Marshall at 7:30am who will follow up on labs (Raya Boone) - Lab Data Lab Results 02/10/18 02/10/18 02/10/18 Range/Units 06:08 06:37 06:37 WBC 7.4 (3.8-10.6) k/uL RBC 3.46 L (3.80-5.40) m/uL Hgb 11.0 L (11.4-16.0) gm/dL Hct 34.2 (34.0-46.0) % MCV 98.7 (80.0-100.0) fL MCH 31.9 (25.0-35.0) pg MCHC 32.3 (31.0-37.0) g/dL RDW 13.8 (11.5-15.5) % Plt Count 336 (150-450) k/uL Neutrophils % 74 % Lymphocytes % 16 % Monocytes % 6 % Eosinophils % 1 % Basophils % 0 % Neutrophils # 5.5 (1.3-7.7) k/uL Lymphocytes # 1.2 (1.0-4.8) k/uL Monocytes # 0.5 (0-1.0) k/uL Eosinophils # 0.1 (0-0.7) k/uL Basophils # 0.0 (0-0.2) k/uL PT 10.3 (9.0-12.0) sec INR 1.1 (<1.2) APTT 23.4 (22.0-30.0) sec Sodium (137-145) mmol/L Potassium (3.5-5.1) mmol/L Chloride (98-107) mmol/L Carbon Dioxide (22-30) mmol/L Anion Gap mmol/L BUN (7-17) mg/dL Creatinine (0.52-1.04) mg/dL Est GFR (CKD-EPI)AfAm (>60 ml/min/1.73 sqM) Est GFR (CKD-EPI)NonAf (>60 ml/min/1.73 sqM) Glucose (74-99) mg/dL Calcium (8.4-10.2) mg/dL Total Bilirubin (0.2-1.3) mg/dL AST (14-36) U/L ALT (9-52) U/L Alkaline Phosphatase (38-126) U/L Total Protein (6.3-8.2) g/dL Albumin (3.5-5.0) g/dL Urine Color Light Yellow Urine Appearance Clear (Clear) Urine pH 6.0 (5.0-8.0) Ur Specific [place] 1.011 (1.001-1.035) Urine Protein Negative (Negative) Urine Glucose (UA) Negative (Negative) Urine Ketones Negative (Negative) Urine Blood Negative (Negative) Urine Nitrite Negative (Negative) Urine Bilirubin Negative (Negative) Urine Urobilinogen <2.0 (<2.0) mg/dL Ur Leukocyte Esterase Small H (Negative) Urine RBC <1 (0-5) /hpf Urine WBC 6 H (0-5) /hpf Ur Squamous Epith Cells 1 (0-4) /hpf Urine Bacteria Few H (None) /hpf Urine Mucus Rare H (None) /hpf 02/10/18 Range/Units 09:03 WBC (3.8-10.6) k/uL RBC (3.80-5.40) m/uL Hgb (11.4-16.0) gm/dL Hct (34.0-46.0) % MCV (80.0-100.0) fL MCH (25.0-35.0) pg MCHC (31.0-37.0) g/dL RDW (11.5-15.5) % Plt Count (150-450) k/uL Neutrophils % % Lymphocytes % % Monocytes % % Eosinophils % % Basophils % % Neutrophils # (1.3-7.7) k/uL Lymphocytes # (1.0-4.8) k/uL Monocytes # (0-1.0) k/uL Eosinophils # (0-0.7) k/uL Basophils # (0-0.2) k/uL PT (9.0-12.0) sec INR (<1.2) APTT (22.0-30.0) sec Sodium 142 (137-145) mmol/L Potassium 3.8 (3.5-5.1) mmol/L Chloride 109 H (98-107) mmol/L Carbon Dioxide 28 (22-30) mmol/L Anion Gap 5 mmol/L BUN 32 H (7-17) mg/dL Creatinine 1.06 H (0.52-1.04) mg/dL Est GFR (CKD-EPI)AfAm 57 (>60 ml/min/1.73 sqM) Est GFR (CKD-EPI)NonAf 49 (>60 ml/min/1.73 sqM) Glucose 130 H (74-99) mg/dL Calcium 10.0 (8.4-10.2) mg/dL Total Bilirubin 0.6 (0.2-1.3) mg/dL AST 23 (14-36) U/L ALT 29 (9-52) U/L Alkaline Phosphatase 70 (38-126) U/L Total Protein 6.2 L (6.3-8.2) g/dL Albumin 3.5 (3.5-5.0) g/dL Urine Color Urine Appearance (Clear) Urine pH (5.0-8.0) Ur Specific [place] (1.001-1.035) Urine Protein (Negative) Urine Glucose (UA) (Negative) Urine Ketones (Negative) Urine Blood (Negative) Urine Nitrite (Negative) Urine Bilirubin (Negative) Urine Urobilinogen (<2.0) mg/dL Ur Leukocyte Esterase (Negative) Urine RBC (0-5) /hpf Urine WBC (0-5) /hpf Ur Squamous Epith Cells (0-4) /hpf Urine Bacteria (None) /hpf Urine Mucus (None) /hpf Disposition <Raya Boone - Last Filed: 02/10/18 07:27> Is patient prescribed a controlled substance at d/c from ED?: No Time of Disposition: 10:16 <Elver Marshall - Last Filed: 02/10/18 10:18> Clinical Impression: Multiple falls, History of arthritis Disposition: HOME SELF-CARE Condition: Good Instructions: Fall Prevention for Older Adults (ED) Referrals: Leela Bill MD [Primary Care Provider] - 1-2 days
[2018-02-10] MEDS ORDERED: amLODIPine 5 MG TAB PO STA (07:47)
[2018-02-10] MEDS ORDERED: hydrALAZINE HCL 50 MG TAB PO STA (07:51)
[2018-02-10] MEDS ORDERED: SPIRONOLACTONE 25 MG TAB PO STA (07:51)
[2018-02-10 08:51] LABS: Basophils % (A) 0 %; Eosinophils # (A) 0.1 k/uL (0-0.7); Eosinophils % (A) 1 %; HCT 34.2 % (34.0-46.0); Lymphocytes # (A) 1.2 k/uL (1.0-4.8); Lymphocytes % (A) 16 %; MCH 31.9 pg (25.0-35.0); MCHC 32.3 g/dL (31.0-37.0); MCV 98.7 fL (80.0-100.0); Mean Platelet Volume 9.8; Monocytes # (A) 0.5 k/uL (0-1.0); Monocytes % (A) 6 %; Neutrophils # (A) 5.5 k/uL (1.3-7.7); Neutrophils % (A) 74 %; Platelet Count 336 k/uL (150-450); RBC 3.46 m/uL (3.80-5.40); RDW 13.8 % (11.5-15.5); WBC 7.4 k/uL (3.8-10.6)
[2018-02-10 09:04] LABS: INR 1.1 (<1.2); Partial Thromboplastin Time 23.4 sec (22.0-30.0); Prothrombin Time 10.3 sec (9.0-12.0)
[2018-02-10 09:36] LABS: Albumin 3.5 g/dL (3.5-5.0); Potassium 3.8 mmol/L (3.5-5.1); Total Bilirubin 0.6 mg/dL (0.2-1.3); Total Protein 6.2 g/dL (6.3-8.2)
[2018-02-10 10:10] VITALS: BP 216/89; PULSE 61; RESP 18
== END 2018-02-10 10:22 | disposition home or self-care (01) ==
LOC: EC 03:20
DX: S80.01XA Contusion of right knee, initial encounter (principal); S80.02XA Contusion of left knee, initial encounter; M16.10 Unilateral primary osteoarthritis, unspecified hip; R29.6 Repeated falls; I11.0 Hypertensive heart disease with heart failure; I50.9 Heart failure, unspecified; I25.10 Atherosclerotic heart disease of native coronary artery without angina pectoris; E11.9 Type 2 diabetes mellitus without complications; E78.5 Hyperlipidemia, unspecified; I25.2 Old myocardial infarction; D64.9 Anemia, unspecified; Z95.1 Presence of aortocoronary bypass graft; Z79.82 Long term (current) use of aspirin; Z79.4 Long term (current) use of insulin; Z79.899 Other long term (current) drug therapy; Z88.5 Allergy status to narcotic agent; Z88.8 Allergy status to other drugs, medicaments and biological substances; Z88.0 Allergy status to penicillin; W19.XXXA Unspecified fall, initial encounter; Y92.009 Unspecified place in unspecified non-institutional (private) residence as the place of occurrence of the external cause
CPT/HCPCS: 36415; 80053; 81001; 85025; 85610; 85730; 87086; 93005; 99283

== ENCOUNTER 2018-04-13 14:16 | Inpatient (IN) | payer MEDICARE ==
[2018-04-13 16:09] LABS: HCT 32.5 % (34.0-46.0); HGB 10.2 gm/dL (11.4-16.0); Hypochromasia Slight; MCH 31.4 pg (25.0-35.0); MCHC 31.2 g/dL (31.0-37.0); MCV 100.5 fL (80.0-100.0); Macrocytosis Slight; Mean Platelet Volume 7.9; Platelet Count 337 k/uL (150-450); RBC 3.24 m/uL (3.80-5.40); RDW 15.2 % (11.5-15.5); WBC 6.4 k/uL (3.8-10.6)
[2018-04-13 16:15] LABS: Prothrombin Time 10.3 sec (9.0-12.0)
[2018-04-13 16:31] LABS: Albumin 3.2 g/dL (3.5-5.0); Calcium 9.9 mg/dL (8.4-10.2); Total Bilirubin 0.7 mg/dL (0.2-1.3); Total Protein 5.8 g/dL (6.3-8.2)
[2018-04-13 16:42] LABS: Creatine Kinase MB 2.3 ng/mL (0.0-2.4)
[2018-04-13] MEDS ORDERED: FUROSEMIDE 10 MG/ML 4 ML VIAL IV STA (16:48)
[2018-04-13] MEDS ORDERED: LABETALOL 5 MG/ML VIAL MDV IVP STA (16:49)
--- NOTE | 2018-04-13 16:49 | XR ---
EXAMINATION TYPE: XR chest 2V DATE OF EXAM: 04/13/2018 COMPARISON: 09/16/2017 HISTORY: Leg swelling. Heart failure TECHNIQUE: Frontal and lateral views of the chest are obtained. FINDINGS: There is coarsening of pulmonary interstitial markings. There is pulmonary interstitial ed marianne. There are sternal wires. There is very slight blunting of the costophrenic angles. Bony thorax i s intact. IMPRESSION: There are new small pleural effusions and pulmonary interstitial edema compared to last exam and consistent with mild heart failure.
[2018-04-13 16:50] LABS: Troponin I 0.067 ng/mL (0.000-0.034)
[2018-04-13] MEDS ORDERED: ASPIRIN 325 MG TAB PO STA (17:48)
--- NOTE | 2018-04-13 17:48 | ED ---
Weakness HPI - General Chief complaint: Extremity Injury, Lower Stated complaint: Swollen legs Time Seen by Provider: 04/13/18 16:13 Source: patient, RN notes reviewed, old records reviewed Mode of arrival: wheelchair Limitations: no limitations - History of Present Illness Initial comments: This is an 83-year-old female the ER for evaluation. Presents today for evaluation of lower extremity pain and edema, exertional dyspnea. Patient does have history of heart disease with multiple stents placed, positive [place]. Patient denies any chest pain currently. No fevers cough or congestion. Denies any recent travel she no sick contacts MD Complaint: generalized weakness, difficulty walking (Bilateral lower Shorty pain and edema) Location: LLE, RLE Severity: moderate Severity scale (1-10): 5 Quality: aching Consistency: constant Improves with: none Worsens with: none Associated Symptoms: shortness of breath - Related Data Home Medications Medication Instructions Recorded Confirmed Allopurinol 100 mg PO DAILY@1200 03/05/14 04/13/18 Aspirin 162 mg PO HS 03/05/14 04/13/18 Omeprazole 40 mg PO DAILY PRN 03/05/14 04/13/18 LORazepam [Ativan] 1 mg PO DAILY PRN 09/23/14 04/13/18 Ascorbic Acid [Vitamin C] 500 mg PO DAILY@1200 09/24/14 04/13/18 Atorvastatin [Lipitor] 80 mg PO DAILY@1200 09/24/14 04/13/18 Cholecalciferol [Vitamin D3] 2,000 unit PO DAILY 09/24/14 04/13/18 Ferrous Sulfate [Feosol] 325 mg PO DAILY 09/24/14 04/13/18 Nitroglycerin 0.2MG/Hr Patch 1 patch TRANSDERM Q24H PRN 09/24/14 04/13/18 [Nitro-Dur 0.2MG/Hr Patch] Furosemide [Lasix] 80 mg PO DAILY@1200 08/07/15 04/13/18 hydrALAZINE HCL [Apresoline] 100 mg PO TID 07/04/17 04/13/18 Potassium Chloride [Klor-Con 10] 20 meq PO DAILY 09/16/17 04/13/18 Escitalopram [Lexapro] 5 mg PO DAILY 02/10/18 04/13/18 Cyanocobalamin [Vitamin B-12] 500 mcg PO DAILY@1200 04/13/18 04/13/18 Insulin NPL/Insulin Lispro See Protocol SQ ACHS 04/13/18 04/13/18 [humaLOG MIX 75-25 VIAL] Losartan [Cozaar] 50 mg PO DAILY 04/13/18 04/13/18 Ubidecarenone [Co Q-10] 100 mg PO DAILY@1200 04/13/18 04/13/18 Allergies Allergy/AdvReac Type Severity Reaction Status Date / Time cortisone Allergy Rash/Hives Verified 04/13/18 17:12 morphine Allergy Unknown Verified 04/13/18 17:12 Penicillins Allergy Rash/Hives Verified 04/13/18 17:12 Review of Systems ROS Statement: Those systems with pertinent positive or pertinent negative responses have been documented in the HPI. ROS Other: All systems not noted in ROS Statement are negative. Past Medical History Past Medical History: Coronary Artery Disease (CAD), Heart Failure, Diabetes Mellitus, GERD/Reflux, Hyperlipidemia, Hypertension, Myocardial Infarction ([place]) , Osteoarthritis (OA), Pneumonia Additional Past Medical History / Comment(s): Hx Mitral regurgitation, anemia, reproductive problems when younger., NECK PAIN. Last Myocardial Infarction Date:: 08/2014 History of Any Multi-Drug Resistant Organisms: None Reported Past Surgical History: Cholecystectomy, Coronary Bypass/CABG, Hysterectomy Additional Past Surgical History / Comment(s): 8x D&C, CABG 7 Blockages, bilateral foot surgery to remove tumors Past Anesthesia/Blood Transfusion Reactions: No Reported Reaction Past Psychological History: No Psychological Hx Reported Smoking Status: Never smoker Past Alcohol Use History: Occasional Past Drug Use History: None Reported - Past Family History Mother Family Medical History: Cancer, Diabetes Mellitus Additional Family Medical History / Comment(s): Mother had breast cancer. Father Family Medical History: Congestive Heart Failure (CHF) Brother(s) Family Medical History: Cancer (Patient is lives with her , functionally active denies any need a walker or assistance) General Exam Limitations: no limitations General appearance: alert, in no apparent distress Head exam: Present: atraumatic, normocephalic, normal inspection Eye exam: Present: normal appearance, PERRL, EOMI. Absent: scleral icterus, conjunctival injection, periorbital swelling ENT exam: Present: normal exam, mucous membranes moist Neck exam: Present: normal inspection. Absent: tenderness, meningismus, lymphadenopathy Respiratory exam: Present: normal lung sounds bilaterally, rales, accessory muscle use, decreased breath sounds, prolonged expiratory. Absent: respiratory distress, wheezes, rhonchi, stridor Cardiovascular Exam: Present: regular rate, normal rhythm, normal heart sounds. Absent: systolic murmur, diastolic murmur, rubs, gallop, clicks GI/Abdominal exam: Present: soft, normal bowel sounds. Absent: distended, tenderness, guarding, rebound, rigid Extremities exam: Present: normal inspection, full ROM, tenderness (Bilateral lower extremity), normal capillary refill, pedal edema, other (Bilateral lower extremity edema and erythema). Absent: joint swelling, calf tenderness Back exam: Present: normal inspection Neurological exam: Present: alert, oriented X3, CN II-XII intact Psychiatric exam: Present: normal affect, normal mood Skin exam: Present: warm, dry, intact, normal color. Absent: rash Course Vital Signs 04/13/18 14:54 Temperature 97.7 F Pulse Rate 61 Respiratory 18 Rate Blood Pressure 203/100 O2 Sat by Pulse 98 Oximetry - Reevaluation(s) Reevaluation #1: 04/13/18 17:46 Medical record is reviewed Reevaluation #2: 04/13/18 17:46 Patient is in no respiratory distress Medical Decision Making - Medical Decision Making 83 female the ER for evaluation of lower extremity edema and exertional dyspnea. Patient has bilateral pleural effusions, significant lower extremity edema, mild elevated troponin elevated BNP, significant CHF will admit for diuresis and cardiology evaluation - Lab Data Result diagrams: 04/13/18 15:31 04/13/18 15:31 Lab Results 04/13/18 04/13/18 04/13/18 Range/Units 15:31 15:31 15:31 WBC 6.4 (3.8-10.6) k/uL RBC 3.24 L (3.80-5.40) m/uL Hgb 10.2 L (11.4-16.0) gm/dL Hct 32.5 L (34.0-46.0) % MCV 100.5 H (80.0-100.0) fL MCH 31.4 (25.0-35.0) pg MCHC 31.2 (31.0-37.0) g/dL RDW 15.2 (11.5-15.5) % Plt Count 337 (150-450) k/uL Hypochromasia Slight Macrocytosis Slight PT (9.0-12.0) sec INR (<1.2) Sodium 144 (137-145) mmol/L Potassium 4.0 (3.5-5.1) mmol/L Chloride 113 H (98-107) mmol/L Carbon Dioxide 24 (22-30) mmol/L Anion Gap 7 mmol/L BUN 18 H (7-17) mg/dL Creatinine 0.88 (0.52-1.04) mg/dL Est GFR (CKD-EPI)AfAm 71 (>60 ml/min/1.73 sqM) Est GFR (CKD-EPI)NonAf 62 (>60 ml/min/1.73 sqM) Glucose 141 H (74-99) mg/dL Calcium 9.9 (8.4-10.2) mg/dL Total Bilirubin 0.7 (0.2-1.3) mg/dL AST 32 (14-36) U/L ALT 36 (9-52) U/L Alkaline Phosphatase 86 (38-126) U/L Total Creatine Kinase 60 (30-135) U/L CK-MB (CK-2) 2.3 (0.0-2.4) ng/mL CK-MB (CK-2) Rel Index 3.8 Troponin I 0.067 H* (0.000-0.034) ng/mL NT-Pro-B Natriuret Pep pg/mL Total Protein 5.8 L (6.3-8.2) g/dL Albumin 3.2 L (3.5-5.0) g/dL 04/13/18 04/13/18 Range/Units 15:31 15:31 WBC (3.8-10.6) k/uL RBC (3.80-5.40) m/uL Hgb (11.4-16.0) gm/dL Hct (34.0-46.0) % MCV (80.0-100.0) fL MCH (25.0-35.0) pg MCHC (31.0-37.0) g/dL RDW (11.5-15.5) % Plt Count (150-450) k/uL Hypochromasia Macrocytosis PT 10.3 (9.0-12.0) sec INR 1.0 (<1.2) Sodium (137-145) mmol/L Potassium (3.5-5.1) mmol/L Chloride (98-107) mmol/L Carbon Dioxide (22-30) mmol/L Anion Gap mmol/L BUN (7-17) mg/dL Creatinine (0.52-1.04) mg/dL Est GFR (CKD-EPI)AfAm (>60 ml/min/1.73 sqM) Est GFR (CKD-EPI)NonAf (>60 ml/min/1.73 sqM) Glucose (74-99) mg/dL Calcium (8.4-10.2) mg/dL Total Bilirubin (0.2-1.3) mg/dL AST (14-36) U/L ALT (9-52) U/L Alkaline Phosphatase (38-126) U/L Total Creatine Kinase (30-135) U/L CK-MB (CK-2) (0.0-2.4) ng/mL CK-MB (CK-2) Rel Index Troponin I (0.000-0.034) ng/mL NT-Pro-B Natriuret Pep 9180 pg/mL Total Protein (6.3-8.2) g/dL Albumin (3.5-5.0) g/dL - Radiology Data Radiology results: report reviewed (Chest x-ray is positive for pleural effusions and pulmonary edema), image reviewed Disposition Clinical Impression: Shortness of breath, Pulmonary edema, CHF (congestive heart failure), Bilateral lower extremity edema, Elevated troponin Disposition: ADMITTED IP TO THIS HOSP Condition: Fair Is patient prescribed a controlled substance at d/c from ED?: No Referrals: Leela Bill MD [Primary Care Provider] - 1-2 days
[2018-04-13] MEDS: FUROSEMIDE 10 MG/ML 4 ML VIAL IV SCH (18:10)
--- NOTE | 2018-04-13 20:18 | US ---
EXAMINATION TYPE: US venous doppler duplex LE BI DATE OF EXAM: 04/13/2018 7:38 PM COMPARISON: NONE CLINICAL HISTORY: Pain. Edema SIDE PERFORMED: Bilateral TECHNIQUE: The lower extremity deep venous system is examined utilizing real time linear array sonog nestor with graded compression, doppler sonography and color-flow sonography. VESSELS IMAGED: External Iliac Vein (EIV) Common Femoral Vein Deep Femoral Vein Greater Saphenous Vein * Femoral Vein Popliteal Vein Small Saphenous Vein * Proximal Calf Veins (* superficial vessels) Right Leg: Negative for DVT Left Leg: Negative for DVT No evidence of DVT bilateral legs. IMPRESSION: Normal exam. Normal bilateral leg duplex venous sonogram.
[2018-04-13] MEDS: LABETALOL 5 MG/ML VIAL MDV IVP STA ×2 (20:28→20:36)
[2018-04-13] MEDS ORDERED: hydrALAZINE HCL 20 MG/ML 1 ML VIAL IVP STA (20:37)
[2018-04-13] MEDS: METOPROLOL TARTRATE 25 MG TAB PO SCH (22:15)
[2018-04-13] MEDS ORDERED: cloNIDine HCL 0.2 MG TAB PO STA (22:17)
[2018-04-13] MEDS ORDERED: LORazepam 2 MG/ML INJ IV STA (23:35)
[2018-04-13 23:52] LABS: Glucose,Whole Blood 182 mg/dL (75-99)
[2018-04-14] MEDS: METOPROLOL TARTRATE 25 MG TAB PO SCH (09:14)
[2018-04-14] MEDS: FUROSEMIDE 10 MG/ML 4 ML VIAL IV SCH ×2 (09:14→18:56)
[2018-04-14] MEDS: ENOXAPARIN 40 MG/0.4 ML SYRINGE SQ SCH (09:14)
[2018-04-14 09:27] LABS: Glucose,Whole Blood 169 mg/dL (75-99)
--- NOTE | 2018-04-14 09:57 | ECHOF ---
Referral Reason:Heart Failure MEASUREMENTS -------- HEIGHT: 157.5 cm WEIGHT: 81.7 kg BP: 186/75 IVSd: 1.9 cm (0.6 - 1.1) LVIDd: 3.8 cm (3.9 - 5.3) LVPWd: 2.5 cm (0.6 - 1.1) IVSs: 2.2 cm LVIDs: 2.6 cm LVPWs: 2.7 cm LA Diam: 4.2 cm (2.7 - 3.8) LAESV Index (A-L): 63.80 ml/m Ao Diam: 3.2 cm (2.0 - 3.7) AV Cusp: 0.7 cm (1.5 - 2.6) LA Diam: 4.9 cm (2.7 - 3.8) MV E Paco: 1.35 m/s MV A Paco: 1.06 m/s MV E/A Ratio: 1.27 AV maxP.18 mmHg AV maxP.18 mmHg AV meanP.34 mmHg RAP: 5.00 mmHg RVSP: 42.90 mmHg FINDINGS -------- Sinus rhythm. This was a techncally difficult study with suboptimal views, , Lumason utilized for enhancement of im ages. There is severe concentric left ventricular hypertrophy. Overall left ventricular systolic function is mild-moderately impaired with, an EF between 40 - 45 %. Apical septum LV wall motion is hypokin etic. Septal Hypokinesis [place] Hypokinesis.mid cavitary obliteration with apical anurysm The right ventricle is normal in size. The left atrium is markedly dilated. LA is severely dilated >40 ml/m2 The right atrial size is normal. 5.0mg OF Lumason UTLIZED: 2 OR MORE WALL SEGMENTS NOT VISUALIZED. There is mild aortic valve sclerosis. There is mild aortic regurgitation. There is mild aortic st enosis present. Peak/mean gradient across the Aortic Valve is 28.18mmHg / 13.34mmHg. Mild mitral annular calcification present. Mild mitral regurgitation is present. Mild tricuspid regurgitation present. There is mild pulmonary hypertension. The right ventricular systolic pressure, as measured by Doppler, is 42.90mmHg. There is no pulmonic regurgitation present. The aortic root size is normal. There is no pericardial effusion. CONCLUSIONS -------- 1. This was a techncally difficult study with suboptimal views, , Lumason utilized for enhancement of images. 2. There is severe concentric left ventricular hypertrophy. 3. Overall left ventricular systolic function is mild-moderately impaired with, an EF between 40 - 45 %. 4. Apical septum LV wall motion is hypokinetic. 5. Septal Hypokinesis 6. [place] Hypokinesis. 7. The right ventricle is normal in size. 8. The left atrium is markedly dilated. 9. LA is severely dilated >40 ml/m2 10. The right atrial size is normal. 11. 5.0mg OF Lumason UTLIZED: 2 OR MORE WALL SEGMENTS NOT VISUALIZED. 12. There is mild aortic valve sclerosis. 13. Peak/mean gradient across the Aortic Valve is 28.18mmHg / 13.34mmHg. 14. Mild mitral annular calcification present. 15. Mild mitral regurgitation is present. 16. Mild tricuspid regurgitation present. 17. There is mild pulmonary hypertension. 18. The right ventricular systolic pressure, as measured by Doppler, is 42.90mmHg. 19. There is no pulmonic regurgitation present. 20. The aortic root size is normal. 21. There is no pericardial effusion. PRESSURE STEAMER TENDER: Krista Wilcox RDCS
[2018-04-14] MEDS ORDERED: LORazepam 1 MG TAB PO PRN (10:29)
[2018-04-14] MEDS ORDERED: PANTOPRAZOLE 40 MG TABLET PO PRN (10:29)
[2018-04-14] MEDS ORDERED: LOSARTAN 50 MG TAB PO SCH (10:45)
[2018-04-14] MEDS: hydrALAZINE HCL 50 MG TAB PO SCH ×3 (11:39→22:09)
[2018-04-14] MEDS: ESCITALOPRAM 5 MG TAB PO SCH ×2 (11:39→15:33)
[2018-04-14] MEDS: POTASSIUM CHLORIDE ER 20 MEQ TAB.ER PO SCH (11:39)
[2018-04-14] MEDS: ALLOPURINOL 100 MG TAB PO SCH (11:44)
[2018-04-14] MEDS: ASCORBIC ACID 500 MG TAB PO SCH (11:44)
[2018-04-14] MEDS: CYANOCOBALAMIN 500 MCG TAB PO SCH (11:45)
[2018-04-14] MEDS: ATORVASTATIN 80 MG TAB PO SCH (11:45)
[2018-04-14] MEDS ORDERED: ASPIRIN 325 MG TAB PO SCH (12:00)
[2018-04-14] MEDS: INSULIN ASPART 100 UNIT/ML 1 ML 10 ML VIAL SQ SCH ×3 (13:04→22:09)
[2018-04-14 13:24] LABS: Glucose,Whole Blood 154 mg/dL (75-99)
--- NOTE | 2018-04-14 16:15 | P.HPIM ---
History of Present Illness H&P Date: 04/14/18 This is an 82-year-old female patient of Dr. Bill and Dr. Diana with past medical history of coronary artery disease status post CABG in 2011 followed by myocardial infarction, diabetes mellitus type 2 insulin requiring, hyperlipidemia, hypertension, cervical stenosis, chronic back pain. She had a hospitalization in June 2017 for acute episode of confusion and disorientation secondary to accelerated hypertension and hypoglycemia. She was also treated for acute kidney injury. She also had a hospitalization in September 2017 which time she presented with chest pain and dobutamine stress echocardiogram was negative for stress-induced ischemia. Patient now presents with lower extremity pain and edema with exertional dyspnea. Patient states her main concern was increased edema to her legs. She states that shortness of breath was not so bad. She does have a chronic scar to the right lower extremity secondary to vein harvesting for CABG. She denies having oxygen at home. She normally uses 2 pillows to sleep. Patient came into [facility] emergency center for evaluation. Chest x-ray shows new small pleural effusions and pulmonary interstitial edema compared to last exam and consistent with mild heart failure. Ultrasound venous Doppler duplex of the lower extremities negative for DVT bilaterally. Initial blood pressure 203/100, white count 6.4, hemoglobin 10.2. Troponin 0.067, creatinine 0.88. ProBNP 9180. Patient received labetalol IV, hydralazine IV, Catapres oral in the ER for blood pressure control. She was started on Lasix 40 mg IV every 12 hours and admitted to the selective care unit and cardiology consult requested. Patient states that she has had increased urine output since she started on IV Lasix. Echocardiogram reveals EF of 4045% with severe concentric left hypertrophy, LA severely dilated greater than 40, mild aortic valve sclerosis, mild mitral regurgitation, mild tricuspid regurgitation, mild pulmonary hypertension. Review of Systems All systems: negative Constitutional: Reports fatigue, Reports weakness, Denies chills, Denies fever, Denies poor appetite, Denies weight loss Eyes: denies blurred vision, denies pain Ears, nose, mouth and throat: Denies headache, Denies sore throat, Denies vertigo Cardiovascular: Reports decreased exercise tolerance, Reports dyspnea on exertion, Reports edema, Reports leg edema, Reports shortness of breath, Denies chest pain, Denies syncope Respiratory: Reports dyspnea, Denies cough, Denies cough with sputum, Denies excessive sputum, Denies hemoptysis, Denies home oxygen, Denies wheezing Gastrointestinal: Denies abdominal pain, Denies diarrhea, Denies nausea, Denies vomiting Genitourinary: Denies dysuria, Denies hematuria, Denies urgency, Denies urinary frequency Musculoskeletal: Denies frequent falls, Denies gait dysfunction, Denies myalgias Integumentary: Denies pruritus, Denies rash, Denies wounds Neurological: Denies change in mentation, Denies change in speech, Denies confusion, Denies convulsions, Denies head injury, Denies headaches, Denies numbness, Denies seizures, Denies weakness Psychiatric: Denies anxiety, Denies depression Endocrine: Denies fatigue, Denies weight change Past Medical History Past Medical History: Coronary Artery Disease (CAD), Heart Failure, Diabetes Mellitus, GERD/Reflux, Hyperlipidemia, Hypertension, Myocardial Infarction ([place]) , Osteoarthritis (OA), Pneumonia Additional Past Medical History / Comment(s): Hx Mitral regurgitation, anemia, reproductive problems when younger., NECK PAIN. Last Myocardial Infarction Date:: 08/2014 History of Any Multi-Drug Resistant Organisms: None Reported Past Surgical History: Cholecystectomy, Coronary Bypass/CABG, Hysterectomy Additional Past Surgical History / Comment(s): 8x D&C, CABG 7 Blockages, bilateral foot surgery to remove tumors Past Anesthesia/Blood Transfusion Reactions: No Reported Reaction Past Psychological History: No Psychological Hx Reported Additional Psychological History / Comment(s): Pt resides with her spouse. She is independent. She has a walker but no longer needs to use it. Smoking Status: Never smoker Past Alcohol Use History: Occasional Additional Past Alcohol Use History / Comment(s): Patient is and lives with her . She is active denies any use of walker or assistance. Past Drug Use History: None Reported - Past Family History Mother Family Medical History: Cancer, Diabetes Mellitus Additional Family Medical History / Comment(s): Mother had breast cancer. Father Family Medical History: Congestive Heart Failure (CHF) Brother(s) Family Medical History: Cancer (Patient is lives with her , functionally active denies any need a walker or assistance) Medications and Allergies Home Medications Medication Instructions Recorded Confirmed Type Allopurinol 100 mg PO DAILY@1200 03/05/14 04/13/18 History Aspirin 162 mg PO HS 03/05/14 04/13/18 History Omeprazole 40 mg PO DAILY PRN 03/05/14 04/13/18 History LORazepam [Ativan] 1 mg PO DAILY PRN 09/23/14 04/13/18 History Ascorbic Acid [Vitamin C] 500 mg PO DAILY@1200 09/24/14 04/13/18 History Atorvastatin [Lipitor] 80 mg PO DAILY@1200 09/24/14 04/13/18 History Cholecalciferol [Vitamin D3] 2,000 unit PO DAILY 09/24/14 04/13/18 History Ferrous Sulfate [Feosol] 325 mg PO DAILY 09/24/14 04/13/18 History Nitroglycerin 0.2MG/Hr Patch 1 patch TRANSDERM Q24H PRN 09/24/14 04/13/18 History [Nitro-Dur 0.2MG/Hr Patch] Furosemide [Lasix] 80 mg PO DAILY@1200 08/07/15 04/13/18 History hydrALAZINE HCL [Apresoline] 100 mg PO TID 07/04/17 04/13/18 History Potassium Chloride [Klor-Con 10] 20 meq PO DAILY 09/16/17 04/13/18 History Escitalopram [Lexapro] 5 mg PO DAILY 02/10/18 04/13/18 History Cyanocobalamin [Vitamin B-12] 500 mcg PO DAILY@1200 04/13/18 04/13/18 History Insulin NPL/Insulin Lispro See Protocol SQ ACHS 04/13/18 04/13/18 History [humaLOG MIX 75-25 VIAL] Losartan [Cozaar] 50 mg PO DAILY 04/13/18 04/13/18 History Ubidecarenone [Co Q-10] 100 mg PO DAILY@1200 04/13/18 04/13/18 History Allergies Allergy/AdvReac Type Severity Reaction Status Date / Time cortisone Allergy Rash/Hives Verified 04/13/18 17:12 morphine Allergy Unknown Verified 04/13/18 17:12 Penicillins Allergy Rash/Hives Verified 04/13/18 17:12 Physical Exam Vitals: Vital Signs Temp Pulse Pulse Resp BP BP Pulse Ox 04/14/18 08:00 98.0 F 55 L 20 197/58 96 04/14/18 06:05 18 04/14/18 06:00 98.6 F 56 L 18 186/75 96 04/14/18 05:00 56 L 19 159/52 97 04/14/18 04:00 56 L 16 168/54 97 04/14/18 03:00 55 L 19 95 04/14/18 02:00 56 L 18 191/50 95 04/14/18 01:50 97.6 F 60 16 180/56 96 04/14/18 01:18 60 17 189/50 04/13/18 20:01 207/69 98 04/13/18 18:28 67 16 175/92 96 04/13/18 14:54 97.7 F 61 18 203/100 98 Intake and Output 04/13/18 04/14/18 04/14/18 22:59 06:59 14:59 Other: Weight 81.647 kg Gen: This is an 83-year-old female. She is resting on the stretcher and appears to be comfortable in no acute distress. HEENT: Head is atraumatic, normocephalic. Pupils equal, round. Sclerae is anicteric. NECK: Supple. No JVD. No lymphadenopathy. No thyromegaly. LUNGS: Diminished bilaterally. No wheezes or rhonchi. No intercostal retractions. HEART: Regular rate and rhythm. Systolic murmur. ABDOMEN: Soft. Bowel sounds are present. No masses. No tenderness. EXTREMITIES: Erythema and edema to the bilateral lower extremities. Dorsalis pedis +2 bilaterally. NEUROLOGICAL: Patient is awake, alert and oriented x3. Cranial nerves 2 through 12 are grossly intact. Results CBC & Chem 7: 04/13/18 15:31 04/13/18 15:31 Labs: Abnormal Lab Results - Last 24 Hours (Table) 04/13/18 04/13/18 04/13/18 Range/Units 15:31 15:31 15:31 RBC 3.24 L (3.80-5.40) m/uL Hgb 10.2 L (11.4-16.0) gm/dL Hct 32.5 L (34.0-46.0) % MCV 100.5 H (80.0-100.0) fL Chloride 113 H (98-107) mmol/L BUN 18 H (7-17) mg/dL Glucose 141 H (74-99) mg/dL POC Glucose (mg/dL) (75-99) mg/dL Troponin I 0.067 H* (0.000-0.034) ng/mL Total Protein 5.8 L (6.3-8.2) g/dL Albumin 3.2 L (3.5-5.0) g/dL 04/13/18 04/13/18 04/14/18 Range/Units 22:30 23:49 03:16 RBC (3.80-5.40) m/uL Hgb (11.4-16.0) gm/dL Hct (34.0-46.0) % MCV (80.0-100.0) fL Chloride (98-107) mmol/L BUN (7-17) mg/dL Glucose (74-99) mg/dL POC Glucose (mg/dL) 182 H (75-99) mg/dL Troponin I 0.066 H* 0.058 H* (0.000-0.034) ng/mL Total Protein (6.3-8.2) g/dL Albumin (3.5-5.0) g/dL 04/14/18 Range/Units 09:13 RBC (3.80-5.40) m/uL Hgb (11.4-16.0) gm/dL Hct (34.0-46.0) % MCV (80.0-100.0) fL Chloride (98-107) mmol/L BUN (7-17) mg/dL Glucose (74-99) mg/dL POC Glucose (mg/dL) 169 H (75-99) mg/dL Troponin I (0.000-0.034) ng/mL Total Protein (6.3-8.2) g/dL Albumin (3.5-5.0) g/dL Thrombosis Risk Factor Assmnt - DVT/VTE Prophylaxis DVT/VTE Prophylaxis: Pharmacologic Prophylaxis ordered - Choose All That Apply Any of the Below Risk Factors Present?: Yes Each Factor Represents 1 point: Swollen legs (current) Other Risk Factors: Yes Each Risk Factor Represents 3 Points: Age 75 years or older Thrombosis Risk Factor Assessment Total Risk Factor Score: 4 Thrombosis Risk Factor Assessment Level: Moderate Risk Assessment and Plan Plan: 1. Acute on chronic systolic heart failure. Patient has been started on Lasix 40 mg IV every 12 hours, Lopressor 25 mg twice daily. Monitor I&O and daily weights, electrolytes and kidney function Cardiology consult is appreciated. 2. Accelerated hypertension requiring IV medication in the ER. Continue hydralazine 100 mg 3 times daily, losartan 50 mg daily, Lopressor 25 mg twice daily. 3. Hyperlipidemia. Continue Lipitor 80 mg daily. 4. Chronic kidney disease stage III, stable. 5. Hypertension. Continue Lopressor, losartan, hydralazine. 6. Diabetes mellitus type 2, insulin requiring. NovoLog scale before meals and at bedtime 7. Anemia of chronic disease. Continue ferrous sulfate 325 mg daily 8. Gastroesophageal reflux disease and GI prophylaxis. Continue omeprazole. 9. DVT prophylaxis. Subcu heparin 10. Recurrent depression. Continue Lexapro 5 mg daily--son states that patient has not been taking his medication although it is on her list. 11. Acute bilateral lower extremity cellulitis. Patient will be started on ceftriaxone, Silvadene wraps. Patient will be admitted to the hospital for a minimal of 2 night stay. Discharge plan: Return home most likely. PT and OT evaluations requested. Impression and plan of care have been directed as dictated by the signing physician. Talia Schneider nurse practitioner acting as scribe for signing physician.
[2018-04-14 16:18] LABS: Hemoglobin A1C 6.1 % (4.0-6.0)
[2018-04-14 16:53] LABS: Glucose,Whole Blood 155 mg/dL (75-99)
[2018-04-14] MEDS: cefTRIAXone 2,000 MG in SODIUM CHLORIDE 0.9% 100 ML IVPB SCH (18:56)
[2018-04-14] MEDS: ASPIRIN 81 MG PO SCH (20:08)
[2018-04-14] MEDS: ACETAMINOPHEN TAB 325 MG TAB PO PRN (20:08)
[2018-04-14 21:14] LABS: Glucose,Whole Blood 170 mg/dL (75-99)
[2018-04-15] MEDS ORDERED: LOSARTAN 50 MG TAB PO STA (00:35)
[2018-04-15] MEDS ORDERED: amLODIPine 10 MG TAB PO STA (00:41)
[2018-04-15] MEDS: FUROSEMIDE 10 MG/ML 4 ML VIAL IV SCH ×2 (05:49→17:28)
[2018-04-15 05:52] LABS: Glucose,Whole Blood 170 mg/dL (75-99)
[2018-04-15] MEDS: INSULIN ASPART 100 UNIT/ML 1 ML 10 ML VIAL SQ SCH ×4 (05:54→22:48)
[2018-04-15 07:20] LABS: Calcium 9.6 mg/dL (8.4-10.2); Potassium 3.4 mmol/L (3.5-5.1)
[2018-04-15] MEDS ORDERED: NALOXONE 0.4 MG/ML 1 ML VIAL IV PRN (07:50)
[2018-04-15] MEDS ORDERED: NITROGLYCERIN 0.2MG/HR PATCH TRANSDERM PRN (07:51)
[2018-04-15 08:06] LABS: Basophils % (A) 0 %; Eosinophils # (A) 0.3 k/uL (0-0.7); Eosinophils % (A) 5 %; HCT 30.4 % (34.0-46.0); HGB 9.4 gm/dL (11.4-16.0); Hypochromasia Slight; Lymphocytes # (A) 0.9 k/uL (1.0-4.8); Lymphocytes % (A) 16 %; MCV 99.9 fL (80.0-100.0); Macrocytosis Slight; Mean Platelet Volume 8.9; Monocytes # (A) 0.4 k/uL (0-1.0); Monocytes % (A) 7 %; Neutrophils % (A) 71 %; Platelet Count 321 k/uL (150-450); RBC 3.05 m/uL (3.80-5.40); RDW 15.1 % (11.5-15.5); WBC 5.6 k/uL (3.8-10.6)
[2018-04-15 08:17] LABS: Magnesium 1.7 mg/dL (1.6-2.3); Phosphorus 3.2 mg/dL (2.5-4.5)
[2018-04-15 08:24] LABS: Glucose,Whole Blood 134 mg/dL (75-99)
--- NOTE | 2018-04-15 08:41 | XR ---
EXAMINATION TYPE: XR chest 1V DATE OF EXAM: 04/15/2018 COMPARISON: 04/13/2018 INDICATION: Short of breath TECHNIQUE: Single frontal view of the chest is obtained. FINDINGS: The heart size is enlarged. The pulmonary vasculature is prominent. This is slightly improved from comparison.. The lungs are clear. IMPRESSION: 1. Cardiomegaly. 2. Slight improving vascular prominence.
[2018-04-15] MEDS: NITROGLYCERIN-D5W PMX 50 MG in DEXTROSE/WATER 1 250ML.BAG IV SCH (09:17)
[2018-04-15] MEDS: MAGNESIUM SULFATE-D5W PMX 1 GM in DEXTROSE/WATER 1 100ML.BAG IVPB SCH ×2 (09:44→11:39)
[2018-04-15] MEDS: CHOLECALCIFEROL 1,000 UNIT TAB PO SCH (09:44)
[2018-04-15] MEDS: amLODIPine 10 MG TAB PO SCH (09:44)
[2018-04-15] MEDS: ENOXAPARIN 40 MG/0.4 ML SYRINGE SQ SCH (09:44)
[2018-04-15] MEDS: hydrALAZINE HCL 50 MG TAB PO SCH ×3 (09:45→23:11)
[2018-04-15] MEDS: POTASSIUM CHLORIDE ER 20 MEQ TAB.ER PO SCH ×3 (09:45→12:27)
[2018-04-15] MEDS: LOSARTAN 50 MG TAB PO SCH (09:45)
[2018-04-15] MEDS: FERROUS SULFATE 325 MG TAB PO SCH (09:45)
[2018-04-15 11:22] LABS: Glucose,Whole Blood 164 mg/dL (75-99)
[2018-04-15] MEDS: cefTRIAXone 2,000 MG in SODIUM CHLORIDE 0.9% 100 ML IVPB SCH (11:38)
[2018-04-15] MEDS: ALLOPURINOL 100 MG TAB PO SCH (11:39)
[2018-04-15] MEDS: CYANOCOBALAMIN 500 MCG TAB PO SCH (11:39)
[2018-04-15] MEDS: ASCORBIC ACID 500 MG TAB PO SCH (11:39)
[2018-04-15] MEDS: ATORVASTATIN 80 MG TAB PO SCH (11:39)
--- NOTE | 2018-04-15 13:01 | P.CNPUL ---
History of Present Illness Consult date: 04/15/18 Requesting physician: Lena Singh Reason for consult: other (Hypertensive emergency.) Chief complaint: Lower extremities pain, swelling, and exertional dyspnea. History of present illness: This is an 82-year-old female with history of multiple medical problems including coronary artery disease, previous CABG in 2011, history of myocardial infarction, hyperlipidemia, type 2 diabetes, hypertension, chronic back pain, cervical stenosis, history of recurrent episodes of accelerated hypertension, history of acute kidney injury related to hypertension, patient presented to the ER yesterday mostly with symptoms of lower extremity pain and exertional dyspnea. She was also noting noticing some increased swelling in her lower extremities. Denies any chest pain, no headaches, no blurred vision, no dizziness. But in the past she has been noted to be confused whenever her blood pressure is elevated. Indeed while in the ER, her blood pressure was significantly elevated, and she was admitted to the ICU, placed on nitroglycerin drip. Her blood pressure upon admission was 203/100. During my evaluation, her blood pressure was 180/90. Patient had a chest x-ray which showed evidence of pulmonary edema. And she did receive Lasix earlier. Actually during my evaluation, patient had no headaches no blurred vision no dizziness, no chest pain no cough no wheezing, no nausea no vomiting no abdominal pain, she was complaining of lower extremities pain, swelling, and some redness and lower extremities. She does have an old scar in the right lower extremity related to vein harvesting for CABG. Previous echocardiogram showed LV dysfunction with ejection fraction of 40%, she has severe concentric left ventricular hypertrophy, and mild aortic valve sclerosis, mild mitral regurgitation, and mild pulmonary hypertension. During my evaluation, family was at bedside, and according to the she was admitted confused upon presentation to the ER, and since then her confusion has resolved. Review of Systems 14 point review of systems were obtained, please refer to pertinent positives in HPI, otherwise remaining systems are negative. Past Medical History Past Medical History: Coronary Artery Disease (CAD), Heart Failure, Diabetes Mellitus, GERD/Reflux, Hyperlipidemia, Hypertension, Myocardial Infarction ([place]) , Osteoarthritis (OA), Pneumonia Additional Past Medical History / Comment(s): Hx Mitral regurgitation, anemia, reproductive problems when younger., NECK PAIN. Last Myocardial Infarction Date:: 08/2014 History of Any Multi-Drug Resistant Organisms: None Reported Past Surgical History: Cholecystectomy, Coronary Bypass/CABG, Hysterectomy Additional Past Surgical History / Comment(s): 8x D&C, CABG 7 Blockages, bilateral foot surgery to remove tumors Past Anesthesia/Blood Transfusion Reactions: No Reported Reaction Past Psychological History: No Psychological Hx Reported Additional Psychological History / Comment(s): Pt resides with her spouse. She is independent. She has a walker but no longer needs to use it. Smoking Status: Never smoker Past Alcohol Use History: Occasional Additional Past Alcohol Use History / Comment(s): Patient is and lives with her . She is active denies any use of walker or assistance. Past Drug Use History: None Reported - Past Family History Mother Family Medical History: Cancer, Diabetes Mellitus Additional Family Medical History / Comment(s): Mother had breast cancer. Father Family Medical History: Congestive Heart Failure (CHF) Brother(s) Family Medical History: Cancer (Patient is lives with her , functionally active denies any need a walker or assistance) Medications and Allergies Home Medications Medication Instructions Recorded Confirmed Type Allopurinol 100 mg PO DAILY@1200 03/05/14 04/13/18 History Aspirin 162 mg PO HS 03/05/14 04/13/18 History Omeprazole 40 mg PO DAILY PRN 03/05/14 04/13/18 History LORazepam [Ativan] 1 mg PO DAILY PRN 09/23/14 04/13/18 History Ascorbic Acid [Vitamin C] 500 mg PO DAILY@1200 09/24/14 04/13/18 History Atorvastatin [Lipitor] 80 mg PO DAILY@1200 09/24/14 04/13/18 History Cholecalciferol [Vitamin D3] 2,000 unit PO DAILY 09/24/14 04/13/18 History Ferrous Sulfate [Feosol] 325 mg PO DAILY 09/24/14 04/13/18 History Nitroglycerin 0.2MG/Hr Patch 1 patch TRANSDERM Q24H PRN 09/24/14 04/13/18 History [Nitro-Dur 0.2MG/Hr Patch] Furosemide [Lasix] 80 mg PO DAILY@1200 08/07/15 04/13/18 History hydrALAZINE HCL [Apresoline] 100 mg PO TID 07/04/17 04/13/18 History Potassium Chloride [Klor-Con 10] 20 meq PO DAILY 09/16/17 04/13/18 History Escitalopram [Lexapro] 5 mg PO DAILY 02/10/18 04/13/18 History Cyanocobalamin [Vitamin B-12] 500 mcg PO DAILY@1200 04/13/18 04/13/18 History Insulin NPL/Insulin Lispro See Protocol SQ ACHS 04/13/18 04/13/18 History [humaLOG MIX 75-25 VIAL] Losartan [Cozaar] 50 mg PO DAILY 04/13/18 04/13/18 History Ubidecarenone [Co Q-10] 100 mg PO DAILY@1200 04/13/18 04/13/18 History Allergies Allergy/AdvReac Type Severity Reaction Status Date / Time cortisone Allergy Rash/Hives Verified 04/13/18 17:12 morphine Allergy Unknown Verified 04/13/18 17:12 Penicillins Allergy Rash/Hives Verified 04/13/18 17:12 Physical Exam Vitals: Vital Signs Temp Pulse Pulse Resp BP BP Pulse Ox 04/15/18 12:00 97.9 F 65 11 L 171/42 94 L 04/15/18 11:00 68 18 153/71 94 L 04/15/18 10:00 74 10 L 185/95 95 04/15/18 09:00 70 16 211/55 96 04/15/18 08:18 98.1 F 58 L 16 222/70 96 04/15/18 06:15 201/50 04/15/18 04:29 61 16 206/46 94 L 04/14/18 23:36 56 L 15 198/64 96 04/14/18 20:03 97.5 F L 64 15 196/58 94 L 04/14/18 16:00 97.7 F 57 L 16 197/71 97 Intake and Output 04/14/18 04/15/18 04/15/18 22:59 06:59 14:59 Intake Total 45 Output Total 800 1000 625 Balance -800 -1000 -580 Intake: IV 45 .9 kvo 45 Output: Urine 800 1000 625 Uretheral (Echavarria) 85 Other: Voiding Method Indwelling Catheter # Voids 1 1 1 Weight 70.2 kg Physical Exam: Revealed 83-year-old female in no distress. Head: Atraumatic, normocephalic. HEENT:[Neck is supple.] [No neck masses.] [No thyromegaly.] [No JVD.] PERRLA, EOMI, no icterus. Chest: [Diminished breath sounds and crackles at the bases bilaterally, no rhonchi, no wheezes..] Cardiac Exam: [Normal S1 and S2, no S3 gallop, 2/6 systolic murmur thought the precordium.] Abdomen: [Soft, nontender, no megaly, no rebound, no guarding, normal bowel sounds.] Extremities: [Evidence of erythema and 1+ bipedal edema noted in both lower extremities, good distal pulses noted bilaterally.] Neurological Exam: [No focal neurologic deficit.] Alert oriented 3. Psychiatric: Normal mood, affect, and mental status examination. Lymphatics: No lymphadenopathy. Skin: No rashes except for erythema and edema noted in both lower extremities. Results - Laboratory Findings CBC and BMP: 04/15/18 06:35 04/15/18 06:35 PT/INR, D-dimer PT 10.3 sec (9.0-12.0) 04/13/18 15:31 INR 1.0 (<1.2) 04/13/18 15:31 Abnormal lab findings: Abnormal Labs 04/13/18 04/13/18 04/13/18 15:31 15:31 15:31 RBC 3.24 L Hgb 10.2 L Hct 32.5 L MCV 100.5 H Lymphocytes # Potassium Chloride 113 H BUN 18 H Glucose 141 H POC Glucose (mg/dL) Hemoglobin A1c Troponin I 0.067 H* Total Protein 5.8 L Albumin 3.2 L 04/13/18 04/13/18 04/13/18 15:31 22:30 23:49 RBC Hgb Hct MCV Lymphocytes # Potassium Chloride BUN Glucose POC Glucose (mg/dL) 182 H Hemoglobin A1c 6.1 H Troponin I 0.066 H* Total Protein Albumin 04/14/18 04/14/18 04/14/18 03:16 09:13 12:49 RBC Hgb Hct MCV Lymphocytes # Potassium Chloride BUN Glucose POC Glucose (mg/dL) 169 H 154 H Hemoglobin A1c Troponin I 0.058 H* Total Protein Albumin 04/14/18 04/14/18 04/15/18 16:47 21:12 05:51 RBC Hgb Hct MCV Lymphocytes # Potassium Chloride BUN Glucose POC Glucose (mg/dL) 155 H 170 H 170 H Hemoglobin A1c Troponin I Total Protein Albumin 04/15/18 04/15/18 04/15/18 06:35 06:35 08:13 RBC 3.05 L Hgb 9.4 L Hct 30.4 L MCV Lymphocytes # 0.9 L Potassium 3.4 L Chloride 108 H BUN 19 H Glucose 147 H POC Glucose (mg/dL) 134 H Hemoglobin A1c Troponin I Total Protein Albumin 04/15/18 11:19 RBC Hgb Hct MCV Lymphocytes # Potassium Chloride BUN Glucose POC Glucose (mg/dL) 164 H Hemoglobin A1c Troponin I Total Protein Albumin - Diagnostic Findings Chest x-ray: image reviewed (Cardiomegaly, and improved vascular prominence and pulmonary edema since admission.) Assessment and Plan Assessment: Impression: 1 acute hypertensive emergency, patient is now on nitroglycerin drip, hydralazine, losartan, Lopressor, and diuretics/Lasix. 2 acute on chronic systolic congestive heart failure secondary to hypertensive emergency and systolic left ventricular dysfunction. 3 chronic kidney disease stage III 4 diabetes type 2 presently on insulin. 5 anemia of chronic disease, 6 hypercholesterolemia, maintained on Lipitor. Recommendation: Patient was examined in the ICU, discussed her condition with the family at bedside, she seems to be doing better than expected and her blood pressure seems to be responding well to treatment. Her pulmonary edema is also responding to diuretics, and clinically patient is improving. At this point we' ll continue the same treatment plan, continue to monitor in the ICU while the patient is on nitroglycerin drip, possibly consider transferring to a cardiac floor later this afternoon if nitroglycerin is discontinued. We'll continue to follow with you while the patient is in the ICU. Time with Patient: Greater than 30
--- NOTE | 2018-04-15 13:11 | P.CRDCN ---
History of Present Illness History of present illness: This is Dr. Kirk dictating a consult on this patient The patient was interviewed and examined by me IMPRESSION / ASSESSMENT: PLAN: HPI ROS: No fever chills or rigors, no cough, phlegm or expectoration, no nausea, vomiting or diarrhea, no hematuria, dysuria, no musculoskeletal complaints, no strokes or seizures, no skin lesions. EXAMINATION: REVIEW OF LABS, ECG & MEDICAL DATA Past Medical History Past Medical History: Coronary Artery Disease (CAD), Heart Failure, Diabetes Mellitus, GERD/Reflux, Hyperlipidemia, Hypertension, Myocardial Infarction ([place]) , Osteoarthritis (OA), Pneumonia Additional Past Medical History / Comment(s): Hx Mitral regurgitation, anemia, reproductive problems when younger., NECK PAIN. Last Myocardial Infarction Date:: 08/2014 History of Any Multi-Drug Resistant Organisms: None Reported Past Surgical History: Cholecystectomy, Coronary Bypass/CABG, Hysterectomy Additional Past Surgical History / Comment(s): 8x D&C, CABG 7 Blockages, bilateral foot surgery to remove tumors Past Anesthesia/Blood Transfusion Reactions: No Reported Reaction Past Psychological History: No Psychological Hx Reported Additional Psychological History / Comment(s): Pt resides with her spouse. She is independent. She has a walker but no longer needs to use it. Smoking Status: Never smoker Past Alcohol Use History: Occasional Additional Past Alcohol Use History / Comment(s): Patient is and lives with her . She is active denies any use of walker or assistance. Past Drug Use History: None Reported - Past Family History Mother Family Medical History: Cancer, Diabetes Mellitus Additional Family Medical History / Comment(s): Mother had breast cancer. Father Family Medical History: Congestive Heart Failure (CHF) Brother(s) Family Medical History: Cancer (Patient is lives with her , functionally active denies any need a walker or assistance) Medications and Allergies Home Medications Medication Instructions Recorded Confirmed Type Allopurinol 100 mg PO DAILY@1200 03/05/14 04/13/18 History Aspirin 162 mg PO HS 03/05/14 04/13/18 History Omeprazole 40 mg PO DAILY PRN 03/05/14 04/13/18 History LORazepam [Ativan] 1 mg PO DAILY PRN 09/23/14 04/13/18 History Ascorbic Acid [Vitamin C] 500 mg PO DAILY@1200 09/24/14 04/13/18 History Atorvastatin [Lipitor] 80 mg PO DAILY@1200 09/24/14 04/13/18 History Cholecalciferol [Vitamin D3] 2,000 unit PO DAILY 09/24/14 04/13/18 History Ferrous Sulfate [Feosol] 325 mg PO DAILY 09/24/14 04/13/18 History Nitroglycerin 0.2MG/Hr Patch 1 patch TRANSDERM Q24H PRN 09/24/14 04/13/18 History [Nitro-Dur 0.2MG/Hr Patch] Furosemide [Lasix] 80 mg PO DAILY@1200 08/07/15 04/13/18 History hydrALAZINE HCL [Apresoline] 100 mg PO TID 07/04/17 04/13/18 History Potassium Chloride [Klor-Con 10] 20 meq PO DAILY 09/16/17 04/13/18 History Escitalopram [Lexapro] 5 mg PO DAILY 02/10/18 04/13/18 History Cyanocobalamin [Vitamin B-12] 500 mcg PO DAILY@1200 04/13/18 04/13/18 History Insulin NPL/Insulin Lispro See Protocol SQ ACHS 04/13/18 04/13/18 History [humaLOG MIX 75-25 VIAL] Losartan [Cozaar] 50 mg PO DAILY 04/13/18 04/13/18 History Ubidecarenone [Co Q-10] 100 mg PO DAILY@1200 04/13/18 04/13/18 History Allergies Allergy/AdvReac Type Severity Reaction Status Date / Time cortisone Allergy Rash/Hives Verified 04/13/18 17:12 morphine Allergy Unknown Verified 04/13/18 17:12 Penicillins Allergy Rash/Hives Verified 04/13/18 17:12 Physical Exam Vitals: Vital Signs Temp Pulse Pulse Resp BP BP Pulse Ox 04/15/18 12:00 97.9 F 65 11 L 171/42 94 L 04/15/18 11:00 68 18 153/71 94 L 04/15/18 10:00 74 10 L 185/95 95 04/15/18 09:00 70 16 211/55 96 04/15/18 08:18 98.1 F 58 L 16 222/70 96 04/15/18 06:15 201/50 04/15/18 04:29 61 16 206/46 94 L 04/14/18 23:36 56 L 15 198/64 96 04/14/18 20:03 97.5 F L 64 15 196/58 94 L 04/14/18 16:00 97.7 F 57 L 16 197/71 97 Intake and Output 04/14/18 04/15/18 04/15/18 22:59 06:59 14:59 Intake Total 45 Output Total 800 1000 625 Balance -800 -1000 -580 Intake: IV 45 .9 kvo 45 Output: Urine 800 1000 625 Uretheral (Echavarria) 85 Other: Voiding Method Indwelling Catheter # Voids 1 1 1 Weight 70.2 kg Results 04/15/18 06:35 04/15/18 06:35 CBC 04/15/18 Range/Units 06:35 WBC 5.6 (3.8-10.6) k/uL RBC 3.05 L (3.80-5.40) m/uL Hgb 9.4 L (11.4-16.0) gm/dL Hct 30.4 L (34.0-46.0) % Plt Count 321 (150-450) k/uL Comprehensive Metabolic Panel 04/15/18 Range/Units 06:35 Sodium 143 (137-145) mmol/L Potassium 3.4 L (3.5-5.1) mmol/L Chloride 108 H (98-107) mmol/L Carbon Dioxide 29 (22-30) mmol/L BUN 19 H (7-17) mg/dL Creatinine 0.96 (0.52-1.04) mg/dL Glucose 147 H (74-99) mg/dL Calcium 9.6 (8.4-10.2) mg/dL Current Medications Generic Name Dose Route Start Last Admin Trade Name Freq PRN Reason Stop Dose Admin Acetaminophen 650 mg 04/14/18 11:33 04/14/18 20:08 Tylenol Tab PO 650 mg Q6HR PRN Administration Fever and/ or Pain Allopurinol 100 mg 04/14/18 12:00 04/15/18 11:39 Zyloprim PO 100 mg DAILY@1200 [facility] Administration Amlodipine Besylate 10 mg 04/15/18 09:00 04/15/18 09:44 Norvasc PO 10 mg DAILY [facility] Administration Ascorbic Acid 500 mg 04/14/18 12:00 04/15/18 11:39 Vitamin C PO 500 mg DAILY@1200 [facility] Administration Aspirin 162 mg 04/14/18 21:00 04/14/18 20:08 Aspirin PO 162 mg HS [facility] Administration Atorvastatin Calcium 80 mg 04/14/18 12:00 04/15/18 11:39 Lipitor PO 80 mg DAILY@1200 [facility] Administration Cholecalciferol 2,000 unit 04/15/18 09:00 04/15/18 09:44 Vitamin D3 PO 2,000 unit DAILY [facility] Administration Cyanocobalamin 500 mcg 04/14/18 12:00 04/15/18 11:39 Vitamin B-12 PO 500 mcg DAILY@1200 [facility] Administration Enoxaparin Sodium 40 mg 04/14/18 09:00 04/15/18 09:44 Lovenox SQ 40 mg DAILY [facility] Administration Ferrous Sulfate 325 mg 04/15/18 09:00 04/15/18 09:45 Feosol PO 325 mg DAILY [facility] Administration Furosemide 40 mg 04/13/18 18:00 04/15/18 05:49 Lasix IV 40 mg Q12H [facility] Administration Hydralazine HCl 100 mg 04/14/18 10:30 04/15/18 09:45 Apresoline PO 100 mg TID [facility] Administration Ceftriaxone Sodium 2,000 mg/ 100 mls @ 100 mls/hr 04/14/18 12:15 04/15/18 11: 38 Sodium Chloride IVPB 100 mls/hr DAILY@1200 [facility] Administration Nitroglycerin/Dextrose 50 mg/ 250 mls @ 1.5 mls/hr 04/15/18 08:00 04/15/18 09 :17 IV Solution IV 5 mcg/min .Q24H [facility]AT 1.5 mls/hr Administration Protocol 5 MCG/MIN Insulin Aspart 0 unit 04/14/18 12:30 04/15/18 11:39 Novolog SQ 1 unit ACHS [facility] Administration Protocol Lorazepam 1 mg 04/15/18 21:00 Ativan PO HS [facility] Losartan Potassium 100 mg 04/15/18 09:00 04/15/18 09:45 Cozaar PO 100 mg DAILY [facility] Administration Naloxone HCl 0.2 mg 04/15/18 07:50 Narcan IV Q2M PRN Opioid Reversal Nitroglycerin 1 patch 04/15/18 07:51 Nitro-Dur 0.2mg/Hr Patch TRANSDERM Q24HR PRN Chest Pain Pantoprazole Sodium 40 mg 01/03/19 10:29 Protonix PO DAILY PRN Heartburn Potassium Chloride 20 meq 04/14/18 10:45 04/15/18 09:45 K-Dur 20 PO 20 meq DAILY [facility] Administration Silver Sulfadiazine 1 applic 04/14/18 12:15 04/14/18 20:09 Silvadene Cream TOPICAL 1 applic DAILY [facility] Administration Intake and Output 04/14/18 04/15/18 04/15/18 22:59 06:59 14:59 Intake Total 45 Output Total 800 1000 625 Balance -800 -1000 -580 Intake: IV 45 .9 kvo 45 Output: Urine 800 1000 625 Uretheral (Echavarria) 85 Other: Voiding Method Indwelling Catheter # Voids 1 1 1 Weight 70.2 kg 04/15/18 06:35 04/15/18 06:35
--- NOTE | 2018-04-15 13:20 | P.CRDCN ---
History of Present Illness History of present illness: This is Dr. Kirk dictating a consult on this patient The patient was interviewed and examined by me IMPRESSION / ASSESSMENT: Uncontrolled hypertension, hypertensive crisis Known coronary artery disease PLAN: Maximize antihypertensive therapy, agree with amlodipine watch blood pressure on hydralazine and amlodipine and losartan As an outpatient I would recommend irbesartan along with Dyazide instead of losartan if blood pressure is not well controlled with the above combination HPI 83-year-old female patient Dr. Diana who came in complaining of pain in both lower extremities shortness of breath and headache. Generalized weakness and difficulty walking No chest discomfort She does have a history of coronary artery disease past history of [place] and coronary stenting Here in the hospital she was noted to be quite hypertensive despite taking her home medications ROS: No fever chills or rigors, no cough, phlegm or expectoration, no nausea, vomiting or diarrhea, no hematuria, dysuria, no musculoskeletal complaints, no strokes or seizures, no skin lesions. EXAMINATION: Blood pressure 185/95 mmHg pulse rate in the 60s afebrile Breath sounds are clear no rhonchi no crackles Heart sounds S1 and S2 are soft, soft systolic murmur Breath sounds are clear She is an abdominal bruit more so on the left side, left of the umbilicus No lower symmetry edema REVIEW OF LABS, ECG & MEDICAL DATA Potassium 3.4 creatinine 0.96 hemoglobin 9.4 Past Medical History Past Medical History: Coronary Artery Disease (CAD), Heart Failure, Diabetes Mellitus, GERD/Reflux, Hyperlipidemia, Hypertension, Myocardial Infarction ([place]) , Osteoarthritis (OA), Pneumonia Additional Past Medical History / Comment(s): Hx Mitral regurgitation, anemia, reproductive problems when younger., NECK PAIN. Last Myocardial Infarction Date:: 08/2014 History of Any Multi-Drug Resistant Organisms: None Reported Past Surgical History: Cholecystectomy, Coronary Bypass/CABG, Hysterectomy Additional Past Surgical History / Comment(s): 8x D&C, CABG 7 Blockages, bilateral foot surgery to remove tumors Past Anesthesia/Blood Transfusion Reactions: No Reported Reaction Past Psychological History: No Psychological Hx Reported Additional Psychological History / Comment(s): Pt resides with her spouse. She is independent. She has a walker but no longer needs to use it. Smoking Status: Never smoker Past Alcohol Use History: Occasional Additional Past Alcohol Use History / Comment(s): Patient is and lives with her . She is active denies any use of walker or assistance. Past Drug Use History: None Reported - Past Family History Mother Family Medical History: Cancer, Diabetes Mellitus Additional Family Medical History / Comment(s): Mother had breast cancer. Father Family Medical History: Congestive Heart Failure (CHF) Brother(s) Family Medical History: Cancer (Patient is lives with her , functionally active denies any need a walker or assistance) Medications and Allergies Home Medications Medication Instructions Recorded Confirmed Type Allopurinol 100 mg PO DAILY@1200 03/05/14 04/13/18 History Aspirin 162 mg PO HS 03/05/14 04/13/18 History Omeprazole 40 mg PO DAILY PRN 03/05/14 04/13/18 History LORazepam [Ativan] 1 mg PO DAILY PRN 09/23/14 04/13/18 History Ascorbic Acid [Vitamin C] 500 mg PO DAILY@1200 09/24/14 04/13/18 History Atorvastatin [Lipitor] 80 mg PO DAILY@1200 09/24/14 04/13/18 History Cholecalciferol [Vitamin D3] 2,000 unit PO DAILY 09/24/14 04/13/18 History Ferrous Sulfate [Feosol] 325 mg PO DAILY 09/24/14 04/13/18 History Nitroglycerin 0.2MG/Hr Patch 1 patch TRANSDERM Q24H PRN 09/24/14 04/13/18 History [Nitro-Dur 0.2MG/Hr Patch] Furosemide [Lasix] 80 mg PO DAILY@1200 08/07/15 04/13/18 History hydrALAZINE HCL [Apresoline] 100 mg PO TID 07/04/17 04/13/18 History Potassium Chloride [Klor-Con 10] 20 meq PO DAILY 09/16/17 04/13/18 History Escitalopram [Lexapro] 5 mg PO DAILY 02/10/18 04/13/18 History Cyanocobalamin [Vitamin B-12] 500 mcg PO DAILY@1200 04/13/18 04/13/18 History Insulin NPL/Insulin Lispro See Protocol SQ ACHS 04/13/18 04/13/18 History [humaLOG MIX 75-25 VIAL] Losartan [Cozaar] 50 mg PO DAILY 04/13/18 04/13/18 History Ubidecarenone [Co Q-10] 100 mg PO DAILY@1200 04/13/18 04/13/18 History Allergies Allergy/AdvReac Type Severity Reaction Status Date / Time cortisone Allergy Rash/Hives Verified 04/13/18 17:12 morphine Allergy Unknown Verified 04/13/18 17:12 Penicillins Allergy Rash/Hives Verified 04/13/18 17:12 Physical Exam Vitals: Vital Signs Temp Pulse Pulse Resp BP BP Pulse Ox 04/15/18 12:00 97.9 F 65 11 L 171/42 94 L 04/15/18 11:00 68 18 153/71 94 L 04/15/18 10:00 74 10 L 185/95 95 04/15/18 09:00 70 16 211/55 96 04/15/18 08:18 98.1 F 58 L 16 222/70 96 04/15/18 06:15 201/50 04/15/18 04:29 61 16 206/46 94 L 04/14/18 23:36 56 L 15 198/64 96 04/14/18 20:03 97.5 F L 64 15 196/58 94 L 04/14/18 16:00 97.7 F 57 L 16 197/71 97 Intake and Output 04/14/18 04/15/18 04/15/18 22:59 06:59 14:59 Intake Total 45 Output Total 800 1000 625 Balance -800 -1000 -580 Intake: IV 45 .9 kvo 45 Output: Urine 800 1000 625 Uretheral (Echavarria) 85 Other: Voiding Method Indwelling Catheter # Voids 1 1 1 Weight 70.2 kg Results 04/15/18 06:35 04/15/18 06:35 CBC 04/15/18 Range/Units 06:35 WBC 5.6 (3.8-10.6) k/uL RBC 3.05 L (3.80-5.40) m/uL Hgb 9.4 L (11.4-16.0) gm/dL Hct 30.4 L (34.0-46.0) % Plt Count 321 (150-450) k/uL Comprehensive Metabolic Panel 04/15/18 Range/Units 06:35 Sodium 143 (137-145) mmol/L Potassium 3.4 L (3.5-5.1) mmol/L Chloride 108 H (98-107) mmol/L Carbon Dioxide 29 (22-30) mmol/L BUN 19 H (7-17) mg/dL Creatinine 0.96 (0.52-1.04) mg/dL Glucose 147 H (74-99) mg/dL Calcium 9.6 (8.4-10.2) mg/dL Current Medications Generic Name Dose Route Start Last Admin Trade Name Freq PRN Reason Stop Dose Admin Acetaminophen 650 mg 04/14/18 11:33 04/14/18 20:08 Tylenol Tab PO 650 mg Q6HR PRN Administration Fever and/ or Pain Allopurinol 100 mg 04/14/18 12:00 04/15/18 11:39 Zyloprim PO 100 mg DAILY@1200 [facility] Administration Amlodipine Besylate 10 mg 04/15/18 09:00 04/15/18 09:44 Norvasc PO 10 mg DAILY [facility] Administration Ascorbic Acid 500 mg 04/14/18 12:00 04/15/18 11:39 Vitamin C PO 500 mg DAILY@1200 [facility] Administration Aspirin 162 mg 04/14/18 21:00 04/14/18 20:08 Aspirin PO 162 mg HS [facility] Administration Atorvastatin Calcium 80 mg 04/14/18 12:00 04/15/18 11:39 Lipitor PO 80 mg DAILY@1200 [facility] Administration Cholecalciferol 2,000 unit 04/15/18 09:00 04/15/18 09:44 Vitamin D3 PO 2,000 unit DAILY [facility] Administration Cyanocobalamin 500 mcg 04/14/18 12:00 04/15/18 11:39 Vitamin B-12 PO 500 mcg DAILY@1200 [facility] Administration Enoxaparin Sodium 40 mg 04/14/18 09:00 04/15/18 09:44 Lovenox SQ 40 mg DAILY [facility] Administration Ferrous Sulfate 325 mg 04/15/18 09:00 04/15/18 09:45 Feosol PO 325 mg DAILY [facility] Administration Furosemide 40 mg 04/13/18 18:00 04/15/18 05:49 Lasix IV 40 mg Q12H [facility] Administration Hydralazine HCl 100 mg 04/14/18 10:30 04/15/18 09:45 Apresoline PO 100 mg TID [facility] Administration Ceftriaxone Sodium 2,000 mg/ 100 mls @ 100 mls/hr 04/14/18 12:15 04/15/18 11: 38 Sodium Chloride IVPB 100 mls/hr DAILY@1200 [facility] Administration Nitroglycerin/Dextrose 50 mg/ 250 mls @ 1.5 mls/hr 04/15/18 08:00 04/15/18 09 :17 IV Solution IV 5 mcg/min .Q24H [facility] 1.5 mls/hr Administration Protocol 5 MCG/MIN Insulin Aspart 0 unit 04/14/18 12:30 04/15/18 11:39 Novolog SQ 1 unit ACHS [facility] Administration Protocol Lorazepam 1 mg 04/15/18 21:00 Ativan PO HS [facility]AT Losartan Potassium 100 mg 04/15/18 09:00 04/15/18 09:45 Cozaar PO 100 mg DAILY [facility] Administration Naloxone HCl 0.2 mg 04/15/18 07:50 Narcan IV Q2M PRN Opioid Reversal Nitroglycerin 1 patch 04/15/18 07:51 Nitro-Dur 0.2mg/Hr Patch TRANSDERM Q24HR PRN Chest Pain Pantoprazole Sodium 40 mg 04/14/18 10:29 Protonix PO DAILY PRN Heartburn Potassium Chloride 20 meq 04/14/18 10:45 04/15/18 09:45 K-Dur 20 PO 20 meq DAILY [facility] Administration Silver Sulfadiazine 1 applic 04/14/18 12:15 04/14/18 20:09 Silvadene Cream TOPICAL 1 applic DAILY [facility] Administration Intake and Output 04/14/18 04/15/18 04/15/18 22:59 06:59 14:59 Intake Total 45 Output Total 800 1000 625 Balance -800 -1000 -580 Intake: IV 45 .9 kvo 45 Output: Urine 800 1000 625 Uretheral (Echavarria) 85 Other: Voiding Method Indwelling Catheter # Voids 1 1 1 Weight 70.2 kg 04/15/18 06:35 04/15/18 06:35
--- NOTE | 2018-04-15 13:42 | P.PN ---
Subjective Progress Note Date: 04/15/18 This is an 82-year-old female patient of Dr. Bill and Dr. Diana with past medical history of coronary artery disease status post CABG in 2011 followed by myocardial infarction, diabetes mellitus type 2 insulin requiring, hyperlipidemia, hypertension, cervical stenosis, chronic back pain. She had a hospitalization in June 2017 for acute episode of confusion and disorientation secondary to accelerated hypertension and hypoglycemia. She was also treated for acute kidney injury. She also had a hospitalization in September 2017 which time she presented with chest pain and dobutamine stress echocardiogram was negative for stress-induced ischemia. Patient now presents with lower extremity pain and edema with exertional dyspnea. Patient states her main concern was increased edema to her legs. She states that shortness of breath was not so bad. She does have a chronic scar to the right lower extremity secondary to vein harvesting for CABG. She denies having oxygen at home. She normally uses 2 pillows to sleep. Patient came into [facility] emergency center for evaluation. Chest x-ray shows new small pleural effusions and pulmonary interstitial edema compared to last exam and consistent with mild heart failure. Ultrasound venous Doppler duplex of the lower extremities negative for DVT bilaterally. Initial blood pressure 203/100, white count 6.4, hemoglobin 10.2. Troponin 0.067, creatinine 0.88. ProBNP 9180. Patient received labetalol IV, hydralazine IV, Catapres oral in the ER for blood pressure control. She was started on Lasix 40 mg IV every 12 hours and admitted to the selective care unit and cardiology consult requested. Patient states that she has had increased urine output since she started on IV Lasix. Echocardiogram reveals EF of 40-45% with severe concentric left hypertrophy, LA severely dilated greater than 40, mild aortic valve sclerosis, mild mitral regurgitation, mild tricuspid regurgitation, mild pulmonary hypertension. Patient also had 2 episodes of bradycardia with heart rate less than 20 and the metipranolol started by the ER was discontinued by cardiology. Patient has been asymptomatic. Her heart rate subsequently running in the 30s and 40s. 04/15: Repeat chest x-ray shows cardiomegaly with slight improving vascular prominence. Patient has had ongoing high blood pressure readings and Norvasc was added early this morning. Cardiology is now the patient intensive care unit to place on nitroglycerin drip to titrate for blood pressure. Consult added for Dr. Javed. Patient denies having any headache or blurred vision this morning. She continues to have lower extremity swelling and redness.. Review of Systems All systems: negative Constitutional: Reports fatigue, Reports weakness, Denies chills, Denies fever, Denies poor appetite Eyes: denies blurred vision, denies pain Ears, nose, mouth and throat: Denies headache, Denies sore throat, Denies vertigo Cardiovascular: Reports decreased exercise tolerance, Reports dyspnea on exertion, Reports edema, Reports leg edema, Reports shortness of breath, Denies chest pain, Denies syncope Respiratory: Reports dyspnea, Denies cough, Denies cough with sputum, Denies excessive sputum, Denies hemoptysis, Denies home oxygen, Denies wheezing Gastrointestinal: Denies abdominal pain, Denies diarrhea, Denies nausea, Denies vomiting Genitourinary: Denies dysuria, Denies hematuria, Denies urgency, Denies urinary frequency Musculoskeletal: Denies frequent falls, Denies gait dysfunction, Denies myalgias Integumentary: Denies pruritus, Denies rash, Denies wounds Neurological: Denies change in mentation, Denies change in speech, Denies confusion, Denies convulsions, Denies head injury, Denies headaches, Denies numbness, Denies seizures, Denies weakness Psychiatric: Denies anxiety, Denies depression Endocrine: Denies fatigue, Denies weight change Objective - Vital Signs Vital signs: Vital Signs Temp 97.5 F L 04/14/18 20:03 Pulse 61 04/15/18 04:29 Resp 16 04/15/18 04:29 BP 201/50 04/15/18 06:15 Pulse Ox 94 L 04/15/18 04:29 Intake & Output 04/14/18 04/15/18 04/15/18 18:59 06:59 18:59 Output Total 1800 Balance -1800 Weight 81.647 kg 70.2 kg Output: Urine 1800 Other: # Voids 1 - Exam Gen: This is an 83-year-old female. She is resting in ICU bed and appears to be comfortable in no acute distress. HEENT: Head is atraumatic, normocephalic. Pupils equal, round. Sclerae is anicteric. NECK: Supple. No JVD. No lymphadenopathy. No thyromegaly. LUNGS: Diminished bilaterally. No wheezes or rhonchi. No intercostal retractions. HEART: Regular rate and rhythm. Systolic murmur. ABDOMEN: Soft. Bowel sounds are present. No masses. No tenderness. EXTREMITIES: Erythema and edema to the bilateral lower extremities. Dorsalis pedis +2 bilaterally. NEUROLOGICAL: Patient is awake, alert and oriented x3. Cranial nerves 2 through 12 are grossly intact. - Labs CBC & Chem 7: 04/15/18 06:35 04/15/18 06:35 Labs: Abnormal Lab Results - Last 24 Hours (Table) 04/13/18 04/14/18 04/14/18 Range/Units 15:31 12:49 16:47 RBC (3.80-5.40) m/uL Hgb (11.4-16.0) gm/dL Hct (34.0-46.0) % Lymphocytes # (1.0-4.8) k/uL Potassium (3.5-5.1) mmol/L Chloride (98-107) mmol/L BUN (7-17) mg/dL Glucose (74-99) mg/dL POC Glucose (mg/dL) 154 H 155 H (75-99) mg/dL Hemoglobin A1c 6.1 H (4.0-6.0) % 04/14/18 04/15/18 04/15/18 Range/Units 21:12 05:51 06:35 RBC (3.80-5.40) m/uL Hgb (11.4-16.0) gm/dL Hct (34.0-46.0) % Lymphocytes # (1.0-4.8) k/uL Potassium 3.4 L (3.5-5.1) mmol/L Chloride 108 H (98-107) mmol/L BUN 19 H (7-17) mg/dL Glucose 147 H (74-99) mg/dL POC Glucose (mg/dL) 170 H 170 H (75-99) mg/dL Hemoglobin A1c (4.0-6.0) % 04/15/18 04/15/18 Range/Units 06:35 08:13 RBC 3.05 L (3.80-5.40) m/uL Hgb 9.4 L (11.4-16.0) gm/dL Hct 30.4 L (34.0-46.0) % Lymphocytes # 0.9 L (1.0-4.8) k/uL Potassium (3.5-5.1) mmol/L Chloride (98-107) mmol/L BUN (7-17) mg/dL Glucose (74-99) mg/dL POC Glucose (mg/dL) 134 H (75-99) mg/dL Hemoglobin A1c (4.0-6.0) % Assessment and Plan Plan: 1. Acute on chronic systolic heart failure. Continue Lasix 40 mg IV every 12 hours, Lopressor 25 mg twice daily. Monitor I&O and daily weights, electrolytes and kidney function Cardiology consult is appreciated. 2. Accelerated hypertension requiring IV medication in the ER. Continue hydralazine 100 mg 3 times daily, losartan has been increased to 100 mg daily, patient's been transferred to the intensive care unit and started on nitroglycerin drip for blood pressure control. Cardiology consult appreciated. 3. Hyperlipidemia. Continue Lipitor 80 mg daily. 4. Chronic kidney disease stage III, stable. 5. Hypertension. Continue losartan, hydralazine. 6. Diabetes mellitus type 2, insulin requiring. NovoLog scale before meals and at bedtime 7. Anemia of chronic disease. Continue ferrous sulfate 325 mg daily 8. Gastroesophageal reflux disease and GI prophylaxis. Continue omeprazole. 9. DVT prophylaxis. Subcu heparin 10. Recurrent depression. Continue Lexapro 5 mg daily--son states that patient has not been taking his medication although it is on her list. 11. Acute bilateral lower extremity cellulitis. Patient will be started on ceftriaxone, Silvadene wraps. 12. Episodes of severe bradycardia. Metoprolol which was started in the ER has been discontinued. Discharge plan: Return home most likely. PT and OT evaluations requested. Impression and plan of care have been directed as dictated by the signing physician. Talia Schneider nurse practitioner acting as scribe for signing physician.
[2018-04-15 17:02] LABS: Glucose,Whole Blood 175 mg/dL (75-99)
[2018-04-15] MEDS: LORazepam 1 MG TAB PO SCH (21:04)
[2018-04-15] MEDS ORDERED: LORazepam 2 MG/ML INJ IV STA ×2 (21:05→21:39)
[2018-04-15] MEDS: ASPIRIN 81 MG PO SCH (21:22)
[2018-04-15 21:54] LABS: Appearance,Urine Clear (Clear); Bilirubin,Urine Negative (Negative); Blood,Urine Small (Negative); Color,Urine Light Yellow; Glucose,Urine (UA) Negative (Negative); Hyaline Casts,Urine 29 /lpf (0-2); Ketones,Urine Negative (Negative); Leukocyte Esterase,Urine Small (Negative); Mucus,Urine Rare /hpf; Nitrite,Urine Negative (Negative); Protein,Urine Negative (Negative); RBC,Urine 15 /hpf (0-5); Specific Gravity,Urine 1.007 (1.001-1.035); Squamous Epithelial Cell,Urine 1 /hpf (0-4); Urobilinogen,Urine <2.0 mg/dL (<2.0)
[2018-04-15 23:26] LABS: Glucose,Whole Blood 191 mg/dL (75-99)
[2018-04-15] MEDS ORDERED: INSULIN ASPART 100 UNIT/ML 1 ML 10 ML VIAL SQ ONE (23:33)
[2018-04-16] MEDS: FUROSEMIDE 10 MG/ML 4 ML VIAL IV SCH ×2 (05:43→18:12)
[2018-04-16] MEDS: amLODIPine 10 MG TAB PO SCH (05:44)
[2018-04-16 05:48] LABS: Basophils % (A) 0 %; Eosinophils # (A) 0.3 k/uL (0-0.7); Eosinophils % (A) 4 %; HCT 30.5 % (34.0-46.0); HGB 9.7 gm/dL (11.4-16.0); Hypochromasia Slight; Lymphocytes # (A) 1.1 k/uL (1.0-4.8); Lymphocytes % (A) 16 %; MCHC 31.7 g/dL (31.0-37.0); Macrocytosis Slight; Mean Platelet Volume 8.1; Monocytes # (A) 0.4 k/uL (0-1.0); Monocytes % (A) 7 %; Neutrophils # (A) 4.6 k/uL (1.3-7.7); Neutrophils % (A) 70 %; Platelet Count 318 k/uL (150-450); RBC 3.02 m/uL (3.80-5.40); RDW 15.2 % (11.5-15.5); WBC 6.6 k/uL (3.8-10.6)
[2018-04-16 06:03] LABS: Calcium 9.7 mg/dL (8.4-10.2); Magnesium 2.3 mg/dL (1.6-2.3); Phosphorus 3.4 mg/dL (2.5-4.5); Potassium 3.7 mmol/L (3.5-5.1)
[2018-04-16 07:20] LABS: Glucose,Whole Blood 149 mg/dL (75-99)
--- NOTE | 2018-04-16 07:20 | XR ---
EXAMINATION TYPE: XR chest 1V DATE OF EXAM: 04/16/2018 HISTORY: shortness of breath. REFERENCE: Previous study dated 04/15/2018. FINDINGS: There has been a midline sternotomy. The heart is enlarged. There is vascular congestion without opal edema. Pleural spaces are clear. IMPRESSION: 1. CARDIOMEGALY. 2. VASCULAR CONGESTION.
[2018-04-16] MEDS: hydrALAZINE HCL 50 MG TAB PO SCH ×3 (09:11→21:00)
[2018-04-16] MEDS: POTASSIUM CHLORIDE ER 20 MEQ TAB.ER PO SCH (09:12)
[2018-04-16] MEDS: FERROUS SULFATE 325 MG TAB PO SCH (09:12)
[2018-04-16] MEDS: LOSARTAN 50 MG TAB PO SCH (09:12)
[2018-04-16] MEDS: INSULIN ASPART 100 UNIT/ML 1 ML 10 ML VIAL SQ SCH ×4 (09:12→20:59)
[2018-04-16] MEDS: CHOLECALCIFEROL 1,000 UNIT TAB PO SCH (09:12)
[2018-04-16] MEDS: ENOXAPARIN 40 MG/0.4 ML SYRINGE SQ SCH (09:12)
[2018-04-16] MEDS: ACETAMINOPHEN TAB 325 MG TAB PO PRN ×2 (09:25→14:32)
[2018-04-16] MEDS: NITROGLYCERIN-D5W PMX 50 MG in DEXTROSE/WATER 1 250ML.BAG IV SCH (10:51)
--- NOTE | 2018-04-16 10:55 | P.PN ---
Subjective Progress Note Date: 04/16/18 This is an 82-year-old female patient of Dr. Bill and Dr. Diana with past medical history of coronary artery disease status post CABG in 2011 followed by myocardial infarction, diabetes mellitus type 2 insulin requiring, hyperlipidemia, hypertension, cervical stenosis, chronic back pain. She had a hospitalization in June 2017 for acute episode of confusion and disorientation secondary to accelerated hypertension and hypoglycemia. She was also treated for acute kidney injury. She also had a hospitalization in September 2017 which time she presented with chest pain and dobutamine stress echocardiogram was negative for stress-induced ischemia. Patient now presents with lower extremity pain and edema with exertional dyspnea. Patient states her main concern was increased edema to her legs. She states that shortness of breath was not so bad. She does have a chronic scar to the right lower extremity secondary to vein harvesting for CABG. She denies having oxygen at home. She normally uses 2 pillows to sleep. Patient came into [facility] emergency center for evaluation. Chest x-ray shows new small pleural effusions and pulmonary interstitial edema compared to last exam and consistent with mild heart failure. Ultrasound venous Doppler duplex of the lower extremities negative for DVT bilaterally. Initial blood pressure 203/100, white count 6.4, hemoglobin 10.2. Troponin 0.067, creatinine 0.88. ProBNP 9180. Patient received labetalol IV, hydralazine IV, Catapres oral in the ER for blood pressure control. She was started on Lasix 40 mg IV every 12 hours and admitted to the selective care unit and cardiology consult requested. Patient states that she has had increased urine output since she started on IV Lasix. Echocardiogram reveals EF of 40-45% with severe concentric left hypertrophy, LA severely dilated greater than 40, mild aortic valve sclerosis, mild mitral regurgitation, mild tricuspid regurgitation, mild pulmonary hypertension. Patient also had 2 episodes of bradycardia with heart rate less than 20 and the metipranolol started by the ER was discontinued by cardiology. Patient has been asymptomatic. Her heart rate subsequently running in the 30s and 40s. 04/15: Repeat chest x-ray shows cardiomegaly with slight improving vascular prominence. Patient has had ongoing high blood pressure readings and Norvasc was added early this morning. Cardiology is now the patient intensive care unit to place on nitroglycerin drip to titrate for blood pressure. Consult added for Dr. Javed. Patient denies having any headache or blurred vision this morning. She continues to have lower extremity swelling and redness.. 04/16: Patient had episode of hallucination last night where she thought men were in her room. This is most likely related to her hypertension. There is concern for underlying vascular dementia which will be addressed after this acute inpatient visit. Patient states she is feeling much better today. She denies any shortness of breath. Lower extremity edema is improving. 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 EKG revealed Mobitz type I. Patient is currently in a sinus rhythm with first-degree heart block. Patient remains on nitroglycerin drip and is receiving oral antihypertensives. Patient is known to have trouble with many antihypertensive medications including beta blockers. PT and OT are on with plan for subacute rehab at discharge. The patient's and son are at the bedside and all questions have been answered. Review of Systems All systems: negative Constitutional: Reports fatigue, Reports weakness, Denies chills, Denies fever, Denies poor appetite Eyes: denies blurred vision, denies pain Ears, nose, mouth and throat: Denies headache, Denies sore throat, Denies vertigo Cardiovascular: Reports decreased exercise tolerance, Reports dyspnea on exertion, Reports edema, Reports leg edema, Reports shortness of breath, Denies chest pain, Denies syncope Respiratory: Denies dyspnea, Denies cough, Denies cough with sputum, Denies excessive sputum, Denies hemoptysis, Denies home oxygen, Denies wheezing Gastrointestinal: Denies abdominal pain, Denies diarrhea, Denies nausea, Denies vomiting Genitourinary: Denies dysuria, Denies hematuria, Denies urgency, Denies urinary frequency Musculoskeletal: Denies frequent falls, Denies gait dysfunction, Denies myalgias Integumentary: Denies pruritus, Denies rash, Denies wounds Neurological: Denies change in mentation, Denies change in speech, Denies confusion, Denies convulsions, Denies head injury, Denies headaches, Denies numbness, Denies seizures, Denies weakness Psychiatric: Reports anxiety, Denies depression Endocrine: Denies fatigue, Denies weight change Objective - Vital Signs Vital signs: Vital Signs Temp 97.7 F 04/16/18 08:00 Pulse 76 04/16/18 09:00 Resp 9 L 04/16/18 09:00 BP 118/63 04/16/18 09:00 Pulse Ox 95 04/16/18 09:00 Intake & Output 04/15/18 04/16/18 04/16/18 18:59 06:59 18:59 Intake Total 150 227.250 30 Output Total 1075 1170 525 Balance -925 -942.750 -495 Weight 72.1 kg Intake: IV 150 185 30 .9 kvo 150 185 30 Intake, IV Titration 42.250 Amount Nitroglycerin-D5w Pmx 50 42.250 mg In Dextrose/Water 1 250ml.bag @ 5 MCG/MIN 1.5 mls/hr IV .Q24H RAFAT Rx#: [id number] Output: Urine 1075 1170 525 Uretheral (Echavarria) 85 Other: Voiding Method Indwelling Catheter Indwelling Catheter # Voids 1 - Exam Gen: This is an 83-year-old female. She is resting in ICU bed and appears to be comfortable in no acute distress. Patient's and son are at the bedside. HEENT: Head is atraumatic, normocephalic. Pupils equal, round. Sclerae is anicteric. NECK: Supple. No JVD. No lymphadenopathy. No thyromegaly. LUNGS: Diminished bilaterally. No wheezes or rhonchi. No intercostal retractions. HEART: Regular rate and rhythm. Systolic murmur. ABDOMEN: Soft. Bowel sounds are present. No masses. No tenderness. EXTREMITIES: Erythema and edema to the bilateral lower extremities, improving. Dorsalis pedis +2 bilaterally. NEUROLOGICAL: Patient is awake, alert and oriented x3. Cranial nerves 2 through 12 are grossly intact. - Labs CBC & Chem 7: 04/16/18 05:11 04/16/18 05:11 Labs: Abnormal Lab Results - Last 24 Hours (Table) 04/15/18 04/15/18 04/15/18 Range/Units 11:19 16:59 21:29 RBC (3.80-5.40) m/uL Hgb (11.4-16.0) gm/dL Hct (34.0-46.0) % MCV (80.0-100.0) fL Chloride (98-107) mmol/L BUN (7-17) mg/dL Creatinine (0.52-1.04) mg/dL Glucose (74-99) mg/dL POC Glucose (mg/dL) 164 H 175 H (75-99) mg/dL Urine Blood Small H (Negative) Ur Leukocyte Esterase Small H (Negative) Urine RBC 15 H (0-5) /hpf Hyaline Casts 29 H (0-2) /lpf Urine Mucus Rare H (None) /hpf 04/15/18 04/16/18 04/16/18 Range/Units 23:14 05:11 05:11 RBC 3.02 L (3.80-5.40) m/uL Hgb 9.7 L (11.4-16.0) gm/dL Hct 30.5 L (34.0-46.0) % MCV 101.0 H (80.0-100.0) fL Chloride 109 H (98-107) mmol/L BUN 19 H (7-17) mg/dL Creatinine 1.08 H (0.52-1.04) mg/dL Glucose 134 H (74-99) mg/dL POC Glucose (mg/dL) 191 H (75-99) mg/dL Urine Blood (Negative) Ur Leukocyte Esterase (Negative) Urine RBC (0-5) /hpf Hyaline Casts (0-2) /lpf Urine Mucus (None) /hpf 04/16/18 Range/Units 07:09 RBC (3.80-5.40) m/uL Hgb (11.4-16.0) gm/dL Hct (34.0-46.0) % MCV (80.0-100.0) fL Chloride (98-107) mmol/L BUN (7-17) mg/dL Creatinine (0.52-1.04) mg/dL Glucose (74-99) mg/dL POC Glucose (mg/dL) 149 H (75-99) mg/dL Urine Blood (Negative) Ur Leukocyte Esterase (Negative) Urine RBC (0-5) /hpf Hyaline Casts (0-2) /lpf Urine Mucus (None) /hpf Assessment and Plan Plan: 1. Acute on chronic systolic heart failure. Continue Lasix 40 mg IV every 12 hours. Monitor I&O and daily weights, electrolytes and kidney function Cardiology consult is appreciated. 2. Accelerated hypertension requiring IV medication in the ER. Continue hydralazine 100 mg 3 times daily, losartan has been increased to 100 mg daily, patient's been transferred to the intensive care unit and started on nitroglycerin drip for blood pressure control. Cardiology consult appreciated. 3. Hyperlipidemia. Continue Lipitor 80 mg daily. 4. Chronic kidney disease stage III, stable. 5. Hypertension. Continue losartan, hydralazine. 6. Diabetes mellitus type 2, insulin requiring. NovoLog scale before meals and at bedtime 7. Anemia of chronic disease. Continue ferrous sulfate 325 mg daily 8. Gastroesophageal reflux disease and GI prophylaxis. Continue omeprazole. 9. DVT prophylaxis. Subcu heparin 10. Recurrent depression. Continue Lexapro 5 mg daily--son states that patient has not been taking his medication although it is on her list. 11. Acute bilateral lower extremity cellulitis. Patient will be started on ceftriaxone, Silvadene wraps. 12. Episodes of severe bradycardia, EKG with Mobitz type I heart block. Metoprolol which was started in the ER has been discontinued. Discharge plan: Subacute rehab, social work consult. PT and OT evaluations requested. Impression and plan of care have been directed as dictated by the signing physician. Talia Schneider nurse practitioner acting as scribe for signing physician.
--- NOTE | 2018-04-16 11:24 | P.PN ---
Subjective Progress Note Date: 04/16/18 Principal diagnosis: Acute hypertensive emergency This is an 82-year-old female with history of multiple medical problems including coronary artery disease, previous CABG in 2012, history of myocardial infarction, hyperlipidemia, type 2 diabetes, hypertension, chronic back pain, cervical stenosis, history of recurrent episodes of accelerated hypertension, history of acute kidney injury related to hypertension, patient presented to the ER yesterday mostly with symptoms of lower extremity pain and exertional dyspnea. She was also noting noticing some increased swelling in her lower extremities. Denies any chest pain, no headaches, no blurred vision, no dizziness. But in the past she has been noted to be confused whenever her blood pressure is elevated. Indeed while in the ER, her blood pressure was significantly elevated, and she was admitted to the ICU, placed on nitroglycerin drip. Her blood pressure upon admission was 203/100. During my evaluation, her blood pressure was 180/90. Patient had a chest x-ray which showed evidence of pulmonary edema. And she did receive Lasix earlier. Actually during my evaluation, patient had no headaches no blurred vision no dizziness, no chest pain no cough no wheezing, no nausea no vomiting no abdominal pain, she was complaining of lower extremities pain, swelling, and some redness and lower extremities. She does have an old scar in the right lower extremity related to vein harvesting for CABG. Previous echocardiogram showed LV dysfunction with ejection fraction of 40%, she has severe concentric left ventricular hypertrophy, and mild aortic valve sclerosis, mild mitral regurgitation, and mild pulmonary hypertension. During my evaluation, family was at bedside, and according to the she was admitted confused upon presentation to the ER, and since then her confusion has resolved. Patient was reevaluated today on 04/16/2018, remains in the ICU, remains on nitroglycerin drip, blood pressure is much better controlled, today is 160/90. Apparently she had some issues with hallucination last night, but during my evaluation, the patient seems to be alert, oriented 3, and did not seem to be confused whatsoever. Family is also at bedside. During my evaluation she denied any shortness of breath, no cough no wheezing, no chest pain. Her blood pressure is again better controlled, and her chest x-ray showed no evidence of interstitial edema. Much improved compared to admission chest x-ray. CBC is relatively normal electrolytes and renal profile are normal. Objective - Vital Signs Vital signs: Vital Signs Temp 97.7 F 04/16/18 08:00 Pulse 72 04/16/18 10:00 Resp 16 04/16/18 10:00 BP 146/89 04/16/18 10:00 Pulse Ox 96 04/16/18 10:00 Intake & Output 04/15/18 04/16/18 04/16/18 18:59 06:59 18:59 Intake Total 150 227.250 324.725 Output Total 1075 1170 700 Balance -925 -942.750 -375.275 Weight 72.1 kg Intake: IV 150 185 75 .9 kvo 150 185 75 Intake, IV Titration 42.250 9.725 Amount Nitroglycerin-D5w Pmx 50 42.250 9.725 mg In Dextrose/Water 1 250ml.bag @ 5 MCG/MIN 1.5 mls/hr IV .Q24H RAFAT Rx#: [id number] Oral 240 Output: Urine 1075 1170 700 Uretheral (Echavarria) 85 Other: Voiding Method Indwelling Catheter Indwelling Catheter Indwelling Catheter # Voids 1 - Exam Physical Exam: Revealed 83-year-old female in no distress. Head: Atraumatic, normocephalic. HEENT:[Neck is supple.] [No neck masses.] [No thyromegaly.] [No JVD.] PERRLA, EOMI, no icterus. Chest: [Diminished breath sounds and crackles at the bases bilaterally, no rhonchi, no wheezes..] Cardiac Exam: [Normal S1 and S2, no S3 gallop, 2/6 systolic murmur thought the precordium.] Abdomen: [Soft, nontender, no megaly, no rebound, no guarding, normal bowel sounds.] Extremities: [Evidence of erythema and 1+ bipedal edema noted in both lower extremities, good distal pulses noted bilaterally.] Neurological Exam: [No focal neurologic deficit.] Alert oriented 3. Psychiatric: Normal mood, affect, and mental status examination. Lymphatics: No lymphadenopathy. Skin: No rashes except for erythema and edema noted in both lower extremities. - Labs CBC & Chem 7: 04/16/18 05:11 04/16/18 05:11 Labs: Abnormal Lab Results - Last 24 Hours (Table) 04/15/18 04/15/18 04/15/18 Range/Units 11:19 16:59 21:29 RBC (3.80-5.40) m/uL Hgb (11.4-16.0) gm/dL Hct (34.0-46.0) % MCV (80.0-100.0) fL Chloride (98-107) mmol/L BUN (7-17) mg/dL Creatinine (0.52-1.04) mg/dL Glucose (74-99) mg/dL POC Glucose (mg/dL) 164 H 175 H (75-99) mg/dL Urine Blood Small H (Negative) Ur Leukocyte Esterase Small H (Negative) Urine RBC 15 H (0-5) /hpf Hyaline Casts 29 H (0-2) /lpf Urine Mucus Rare H (None) /hpf 04/15/18 04/16/18 04/16/18 Range/Units 23:14 05:11 05:11 RBC 3.02 L (3.80-5.40) m/uL Hgb 9.7 L (11.4-16.0) gm/dL Hct 30.5 L (34.0-46.0) % MCV 101.0 H (80.0-100.0) fL Chloride 109 H (98-107) mmol/L BUN 19 H (7-17) mg/dL Creatinine 1.08 H (0.52-1.04) mg/dL Glucose 134 H (74-99) mg/dL POC Glucose (mg/dL) 191 H (75-99) mg/dL Urine Blood (Negative) Ur Leukocyte Esterase (Negative) Urine RBC (0-5) /hpf Hyaline Casts (0-2) /lpf Urine Mucus (None) /hpf 04/16/18 Range/Units 07:09 RBC (3.80-5.40) m/uL Hgb (11.4-16.0) gm/dL Hct (34.0-46.0) % MCV (80.0-100.0) fL Chloride (98-107) mmol/L BUN (7-17) mg/dL Creatinine (0.52-1.04) mg/dL Glucose (74-99) mg/dL POC Glucose (mg/dL) 149 H (75-99) mg/dL Urine Blood (Negative) Ur Leukocyte Esterase (Negative) Urine RBC (0-5) /hpf Hyaline Casts (0-2) /lpf Urine Mucus (None) /hpf Assessment and Plan Assessment: Impression: 1 acute hypertensive emergency, remains on nitroglycerin drip, hydralazine, losartan, Lopressor, and diuretics/Lasix. Her blood pressure today seems to be better controlled. 2 acute on chronic systolic congestive heart failure secondary to hypertensive emergency and systolic left ventricular dysfunction. 3 chronic kidney disease stage III 4 diabetes type 2 presently on insulin. 5 anemia of chronic disease, 6 hypercholesterolemia, maintained on Lipitor. 7 bilateral lower extremities cellulitis, presently on ceftriaxone and Silvadene wraps. Recommendation: Continue present meds including blood pressure medications, nitroglycerin and possibly discontinue today. Hydralazine, losartan, continue Lipitor, insulin, GI prophylaxis, subcu heparin, and antibiotics for her bilateral lower extremity cellulitis. Consider transferring the patient out of the ICU to a monitor bed on selective once she is off nitroglycerin. Patient is not quite ready to be transferred out of the ICU today. We'll continue to follow. Time with Patient: Less than 30
[2018-04-16] MEDS: cefTRIAXone 2,000 MG in SODIUM CHLORIDE 0.9% 100 ML IVPB SCH (11:38)
[2018-04-16] MEDS: CYANOCOBALAMIN 500 MCG TAB PO SCH (11:41)
[2018-04-16] MEDS: ASCORBIC ACID 500 MG TAB PO SCH (11:41)
[2018-04-16] MEDS: ATORVASTATIN 80 MG TAB PO SCH (11:41)
[2018-04-16] MEDS: ALLOPURINOL 100 MG TAB PO SCH (11:41)
[2018-04-16 12:10] LABS: Glucose,Whole Blood 189 mg/dL (75-99)
[2018-04-16 17:15] LABS: Glucose,Whole Blood 182 mg/dL (75-99)
[2018-04-16 20:37] LABS: Glucose,Whole Blood 171 mg/dL (75-99)
[2018-04-16] MEDS: ASPIRIN 81 MG PO SCH (20:59)
[2018-04-16] MEDS: LORazepam 1 MG TAB PO SCH (21:00)
[2018-04-17] MEDS: hydrALAZINE HCL 50 MG TAB PO SCH ×2 (05:05→16:20)
[2018-04-17] MEDS: FUROSEMIDE 10 MG/ML 4 ML VIAL IV SCH (05:05)
[2018-04-17 06:05] LABS: Basophils % (A) 0 %; Eosinophils # (A) 0.5 k/uL (0-0.7); Eosinophils % (A) 9 %; HCT 33.9 % (34.0-46.0); HGB 10.5 gm/dL (11.4-16.0); Hypochromasia Slight; Lymphocytes # (A) 1.3 k/uL (1.0-4.8); Lymphocytes % (A) 22 %; MCH 31.7 pg (25.0-35.0); MCHC 30.8 g/dL (31.0-37.0); MCV 102.9 fL (80.0-100.0); Macrocytosis Slight; Mean Platelet Volume 8.4; Monocytes # (A) 0.4 k/uL (0-1.0); Monocytes % (A) 7 %; Neutrophils # (A) 3.5 k/uL (1.3-7.7); Neutrophils % (A) 58 %; Platelet Count 369 k/uL (150-450); RDW 15.4 % (11.5-15.5)
[2018-04-17 06:17] LABS: Calcium 9.8 mg/dL (8.4-10.2); Magnesium 2.3 mg/dL (1.6-2.3); Potassium 3.9 mmol/L (3.5-5.1)
--- NOTE | 2018-04-17 06:51 | XR ---
EXAMINATION TYPE: XR chest 1V DATE OF EXAM: 04/17/2018 HISTORY: shortness of breath. REFERENCE: Previous study dated 04/16/2018. FINDINGS: There has been a midline sternotomy. The heart is enlarged. Vascular status has improved slightly. Pleural spaces are clear. I do not see evidence of pneumonia or congestion. IMPRESSION: 1. CARDIOMEGALY. 2. IMPROVED VASCULAR CONGESTION.
[2018-04-17 07:07] LABS: Glucose,Whole Blood 171 mg/dL (75-99)
[2018-04-17] MEDS: amLODIPine 10 MG TAB PO SCH (07:25)
[2018-04-17] MEDS: INSULIN ASPART 100 UNIT/ML 1 ML 10 ML VIAL SQ SCH ×4 (07:25→23:28)
[2018-04-17] MEDS: LOSARTAN 50 MG TAB PO SCH (07:25)
[2018-04-17] MEDS: POTASSIUM CHLORIDE ER 20 MEQ TAB.ER PO SCH (08:38)
[2018-04-17] MEDS: FERROUS SULFATE 325 MG TAB PO SCH (08:38)
[2018-04-17] MEDS: LORazepam 1 MG TAB PO SCH (08:38)
[2018-04-17] MEDS: CHOLECALCIFEROL 1,000 UNIT TAB PO SCH (08:38)
[2018-04-17] MEDS: ENOXAPARIN 40 MG/0.4 ML SYRINGE SQ SCH (08:39)
[2018-04-17] MEDS: ACETAMINOPHEN TAB 325 MG TAB PO PRN ×2 (08:43→16:18)
--- NOTE | 2018-04-17 09:06 | P.PN ---
Subjective Progress Note Date: 04/17/18 This is an 82-year-old female patient of Dr. Bill and Dr. Diana with past medical history of coronary artery disease status post CABG in 2011 followed by myocardial infarction, diabetes mellitus type 2 insulin requiring, hyperlipidemia, hypertension, cervical stenosis, chronic back pain. She had a hospitalization in June 2017 for acute episode of confusion and disorientation secondary to accelerated hypertension and hypoglycemia. She was also treated for acute kidney injury. She also had a hospitalization in September 2017 which time she presented with chest pain and dobutamine stress echocardiogram was negative for stress-induced ischemia. Patient now presents with lower extremity pain and edema with exertional dyspnea. Patient states her main concern was increased edema to her legs. She states that shortness of breath was not so bad. She does have a chronic scar to the right lower extremity secondary to vein harvesting for CABG. She denies having oxygen at home. She normally uses 2 pillows to sleep. Patient came into [facility] emergency center for evaluation. Chest x-ray shows new small pleural effusions and pulmonary interstitial edema compared to last exam and consistent with mild heart failure. Ultrasound venous Doppler duplex of the lower extremities negative for DVT bilaterally. Initial blood pressure 203/100, white count 6.4, hemoglobin 10.2. Troponin 0.067, creatinine 0.88. ProBNP 9180. Patient received labetalol IV, hydralazine IV, Catapres oral in the ER for blood pressure control. She was started on Lasix 40 mg IV every 12 hours and admitted to the selective care unit and cardiology consult requested. Patient states that she has had increased urine output since she started on IV Lasix. Echocardiogram reveals EF of 40-45% with severe concentric left hypertrophy, LA severely dilated greater than 40, mild aortic valve sclerosis, mild mitral regurgitation, mild tricuspid regurgitation, mild pulmonary hypertension. Patient also had 2 episodes of bradycardia with heart rate less than 20 and the metipranolol started by the ER was discontinued by cardiology. Patient has been asymptomatic. Her heart rate subsequently running in the 30s and 40s. 04/15: Repeat chest x-ray shows cardiomegaly with slight improving vascular prominence. Patient has had ongoing high blood pressure readings and Norvasc was added early this morning. Cardiology is now the patient intensive care unit to place on nitroglycerin drip to titrate for blood pressure. Consult added for Dr. Javed. Patient denies having any headache or blurred vision this morning. She continues to have lower extremity swelling and redness.. 04/16: Patient had episode of hallucination last night where she thought men were in her room. This is most likely related to her hypertension. There is concern for underlying vascular dementia which will be addressed after this acute inpatient visit. Patient states she is feeling much better today. She denies any shortness of breath. Lower extremity edema is improving. 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 EKG revealed Mobitz type I. Patient is currently in a sinus rhythm with first-degree heart block. Patient remains on nitroglycerin drip and is receiving oral antihypertensives. Patient is known to have trouble with many antihypertensive medications including beta blockers. PT and OT are on with plan for subacute rehab at discharge. The patient's and son are at the bedside and all questions have been answered. 04/17: Repeat chest x-ray shows cardiomegaly and improving vascular congestion. Blood pressure 163/54. She is off the nitroglycerin drip and currently on Norvasc, hydralazine, losartan and Lasix. Lasix is 40 mg IV every 12 hours. We 'll add in scheduled Ativan for morning to her already scheduled bedtime. Shortness of breath and lower extremity edema is improved. Erythema to the lower extremities is much improved as well. She denies having a good appetite and is not eating very much. She denies any abdominal pain. She did have a bowel movement. Review of Systems All systems: negative Constitutional: Reports fatigue, Reports weakness, Denies chills, Denies fever, reports poor appetite Eyes: denies blurred vision, denies pain Ears, nose, mouth and throat: Denies headache, Denies sore throat, Denies vertigo Cardiovascular: Reports decreased exercise tolerance, Reports dyspnea on exertion, Reports edema, Reports leg edema, Reports shortness of breath, Denies chest pain, Denies syncope Respiratory: Denies dyspnea, Denies cough, Denies cough with sputum, Denies excessive sputum, Denies hemoptysis, Denies home oxygen, Denies wheezing Gastrointestinal: Denies abdominal pain, Denies diarrhea, Denies nausea, Denies vomiting, reports lack of appetite Genitourinary: Denies dysuria, Denies hematuria, Denies urgency, Denies urinary frequency Musculoskeletal: Denies frequent falls, Denies gait dysfunction, Denies myalgias Integumentary: Denies pruritus, Denies rash, Denies wounds Neurological: Denies change in mentation, Denies change in speech, Denies confusion, Denies convulsions, Denies head injury, Denies headaches, Denies numbness, Denies seizures, Denies weakness Psychiatric: Reports anxiety, Denies depression Endocrine: Denies fatigue, Denies weight change Objective - Vital Signs Vital signs: Vital Signs Temp 97.5 F L 04/17/18 04:00 Pulse 70 04/17/18 04:00 Resp 27 H 04/17/18 04:00 BP 163/72 04/17/18 04:40 Pulse Ox 96 04/17/18 04:00 Intake & Output 04/16/18 04/17/18 04/17/18 18:59 06:59 18:59 Intake Total 994.725 195 Output Total 902 1311 Balance 92.725 -1116 Weight 71.2 kg Intake: IV 165 195 .9 kvo 165 195 Intake, IV Titration 109.725 Amount Nitroglycerin-D5w Pmx 50 9.725 mg In Dextrose/Water 1 250ml.bag @ 5 MCG/MIN 1.5 mls/hr IV .Q24H [facility] Rx#: [id number] cefTRIAXone 2,000 mg In 100 Sodium Chloride 0.9% 100 ml @ 100 mls/hr IVPB DAILY@1200 [facility] Rx#: [id number] Oral 720 Output: Urine 900 1310 Stool 2 1 Other: Voiding Method Indwelling Catheter Indwelling Catheter - Exam Gen: This is an 83-year-old female. She is resting in ICU bed and appears to be comfortable in no acute distress. HEENT: Head is atraumatic, normocephalic. Pupils equal, round. Sclerae is anicteric. NECK: Supple. No JVD. No lymphadenopathy. No thyromegaly. LUNGS: Diminished bilaterally. No wheezes or rhonchi. No intercostal retractions. HEART: Regular rate and rhythm. Systolic murmur. ABDOMEN: Soft. Bowel sounds are present. No masses. No tenderness. EXTREMITIES: Erythema and edema to the bilateral lower extremities, improving. Dorsalis pedis +2 bilaterally. NEUROLOGICAL: Patient is awake, alert and oriented x3. Cranial nerves 2 through 12 are grossly intact. - Labs CBC & Chem 7: 04/17/18 05:21 04/17/18 05:21 Labs: Abnormal Lab Results - Last 24 Hours (Table) 04/16/18 04/16/18 04/16/18 Range/Units 11:58 17:04 20:26 RBC (3.80-5.40) m/uL Hgb (11.4-16.0) gm/dL Hct (34.0-46.0) % MCV (80.0-100.0) fL MCHC (31.0-37.0) g/dL BUN (7-17) mg/dL Creatinine (0.52-1.04) mg/dL Glucose (74-99) mg/dL POC Glucose (mg/dL) 189 H 182 H 171 H (75-99) mg/dL 04/17/18 04/17/18 04/17/18 Range/Units 05:21 05:21 06:55 RBC 3.30 L (3.80-5.40) m/uL Hgb 10.5 L (11.4-16.0) gm/dL Hct 33.9 L (34.0-46.0) % MCV 102.9 H (80.0-100.0) fL MCHC 30.8 L (31.0-37.0) g/dL BUN 22 H (7-17) mg/dL Creatinine 1.08 H (0.52-1.04) mg/dL Glucose 145 H (74-99) mg/dL POC Glucose (mg/dL) 171 H (75-99) mg/dL Assessment and Plan Plan: 1. Acute on chronic systolic heart failure. Continue Lasix 40 mg IV every 12 hours. Monitor I&O and daily weights, electrolytes and kidney function Cardiology consult is appreciated. 2. Accelerated hypertension requiring IV medication in the ER. Continue hydralazine 100 mg 3 times daily, losartan has been increased to 100 mg daily, patient's been transferred to the intensive care unit and started on nitroglycerin drip for blood pressure control. Cardiology consult appreciated. 3. Hyperlipidemia. Continue Lipitor 80 mg daily. 4. Chronic kidney disease stage III, stable. 5. Hypertension. Continue losartan, hydralazine. 6. Diabetes mellitus type 2, insulin requiring. NovoLog scale before meals and at bedtime 7. Anemia of chronic disease. Continue ferrous sulfate 325 mg daily 8. Gastroesophageal reflux disease and GI prophylaxis. Continue omeprazole. 9. DVT prophylaxis. Subcu heparin 10. Recurrent depression. Continue Lexapro 5 mg daily--son states that patient has not been taking his medication although it is on her list. 11. Acute bilateral lower extremity cellulitis. Patient will be started on ceftriaxone, Silvadene wraps. 12. Episodes of severe bradycardia, EKG with Mobitz type I heart block. Metoprolol which was started in the ER has been discontinued. Discharge plan: Subacute rehab, social work consult. PT and OT evaluations requested. Impression and plan of care have been directed as dictated by the signing physician. Talia Schneider nurse practitioner acting as scribe for signing physician.
[2018-04-17 12:07] LABS: Glucose,Whole Blood 158 mg/dL (75-99)
[2018-04-17] MEDS: cefTRIAXone 2,000 MG in SODIUM CHLORIDE 0.9% 100 ML IVPB SCH (13:05)
[2018-04-17] MEDS: ASCORBIC ACID 500 MG TAB PO SCH (13:05)
[2018-04-17] MEDS: ATORVASTATIN 80 MG TAB PO SCH (13:05)
[2018-04-17] MEDS: ALLOPURINOL 100 MG TAB PO SCH (13:05)
[2018-04-17] MEDS: CYANOCOBALAMIN 500 MCG TAB PO SCH (13:05)
--- NOTE | 2018-04-17 13:58 | P.PN ---
Subjective Progress Note Date: 04/17/18 Principal diagnosis: Acute hypertensive emergency This is an 82-year-old female with history of multiple medical problems including coronary artery disease, previous CABG in 2011, history of myocardial infarction, hyperlipidemia, type 2 diabetes, hypertension, chronic back pain, cervical stenosis, history of recurrent episodes of accelerated hypertension, history of acute kidney injury related to hypertension, patient presented to the ER yesterday mostly with symptoms of lower extremity pain and exertional dyspnea. She was also noting noticing some increased swelling in her lower extremities. Denies any chest pain, no headaches, no blurred vision, no dizziness. But in the past she has been noted to be confused whenever her blood pressure is elevated. Indeed while in the ER, her blood pressure was significantly elevated, and she was admitted to the ICU, placed on nitroglycerin drip. Her blood pressure upon admission was 203/100. During my evaluation, her blood pressure was 180/90. Patient had a chest x-ray which showed evidence of pulmonary edema. And she did receive Lasix earlier. Actually during my evaluation, patient had no headaches no blurred vision no dizziness, no chest pain no cough no wheezing, no nausea no vomiting no abdominal pain, she was complaining of lower extremities pain, swelling, and some redness and lower extremities. She does have an old scar in the right lower extremity related to vein harvesting for CABG. Previous echocardiogram showed LV dysfunction with ejection fraction of 40%, she has severe concentric left ventricular hypertrophy, and mild aortic valve sclerosis, mild mitral regurgitation, and mild pulmonary hypertension. During my evaluation, family was at bedside, and according to the she was admitted confused upon presentation to the ER, and since then her confusion has resolved. Patient was reevaluated today on 04/16/2018, remains in the ICU, remains on nitroglycerin drip, blood pressure is much better controlled, today is 160/90. Apparently she had some issues with hallucination last night, but during my evaluation, the patient seems to be alert, oriented 3, and did not seem to be confused whatsoever. Family is also at bedside. During my evaluation she denied any shortness of breath, no cough no wheezing, no chest pain. Her blood pressure is again better controlled, and her chest x-ray showed no evidence of interstitial edema. Much improved compared to admission chest x-ray. CBC is relatively normal electrolytes and renal profile are normal. Reevaluated today on 04/17/2018, patient is doing well, her chest x-ray has shown significant improvement, patient is mostly on oral meds for blood pressure, remains on Lasix 40 mg every 12 hours, asymptomatic no cough no wheezing no shortness of breath, hence we plan to transfer the patient out of the ICU today. Objective - Vital Signs Vital signs: Vital Signs Temp 97.7 F 04/17/18 12:00 Pulse 69 04/17/18 12:00 Resp 14 04/17/18 12:00 BP 159/52 04/17/18 12:00 Pulse Ox 95 04/17/18 12:00 Intake & Output 04/16/18 04/17/18 04/17/18 18:59 06:59 18:59 Intake Total 994.725 195 610 Output Total 902 1311 550 Balance 92.725 -1116 60 Weight 71.2 kg Intake: IV 165 195 30 .9 kvo 165 195 30 Intake, IV Titration 109.725 100 Amount Nitroglycerin-D5w Pmx 50 9.725 mg In Dextrose/Water 1 250ml.bag @ 5 MCG/MIN 1.5 mls/hr IV .Q24H [facility] Rx#: [id number] cefTRIAXone 2,000 mg In 100 100 Sodium Chloride 0.9% 100 ml @ 100 mls/hr IVPB DAILY@1200 [facility] Rx#: [id number] Oral 720 480 Output: Urine 900 1310 550 Stool 2 1 Other: Voiding Method Indwelling Catheter Indwelling Catheter Indwelling Catheter - Exam Physical Exam: Revealed 83-year-old female in no distress. Head: Atraumatic, normocephalic. HEENT:[Neck is supple.] [No neck masses.] [No thyromegaly.] [No JVD.] PERRLA, EOMI, no icterus. Chest: [Diminished breath sounds and crackles at the bases bilaterally, no rhonchi, no wheezes..] Cardiac Exam: [Normal S1 and S2, no S3 gallop, 2/6 systolic murmur thought the precordium.] Abdomen: [Soft, nontender, no megaly, no rebound, no guarding, normal bowel sounds.] Extremities: [Evidence of erythema and 1+ bipedal edema noted in both lower extremities, good distal pulses noted bilaterally.] Neurological Exam: [No focal neurologic deficit.] Alert oriented 3. Psychiatric: Normal mood, affect, and mental status examination. Lymphatics: No lymphadenopathy. Skin: No rashes except for erythema and edema noted in both lower extremities. - Labs CBC & Chem 7: 04/17/18 05:21 04/17/18 05:21 Labs: Abnormal Lab Results - Last 24 Hours (Table) 04/16/18 04/16/18 04/17/18 Range/Units 17:04 20:26 05:21 RBC (3.80-5.40) m/uL Hgb (11.4-16.0) gm/dL Hct (34.0-46.0) % MCV (80.0-100.0) fL MCHC (31.0-37.0) g/dL BUN 22 H (7-17) mg/dL Creatinine 1.08 H (0.52-1.04) mg/dL Glucose 145 H (74-99) mg/dL POC Glucose (mg/dL) 182 H 171 H (75-99) mg/dL 04/17/18 04/17/18 04/17/18 Range/Units 05:21 06:55 11:55 RBC 3.30 L (3.80-5.40) m/uL Hgb 10.5 L (11.4-16.0) gm/dL Hct 33.9 L (34.0-46.0) % MCV 102.9 H (80.0-100.0) fL MCHC 30.8 L (31.0-37.0) g/dL BUN (7-17) mg/dL Creatinine (0.52-1.04) mg/dL Glucose (74-99) mg/dL POC Glucose (mg/dL) 171 H 158 H (75-99) mg/dL Assessment and Plan Assessment: Impression: 1 acute hypertensive emergency, remains on nitroglycerin drip, hydralazine, losartan, Lopressor, and diuretics/Lasix. Her blood pressure today seems to be better controlled. 2 acute on chronic systolic congestive heart failure secondary to hypertensive emergency and systolic left ventricular dysfunction. 3 chronic kidney disease stage III 4 diabetes type 2 presently on insulin. 5 anemia of chronic disease, 6 hypercholesterolemia, maintained on Lipitor. 7 bilateral lower extremities cellulitis, presently on ceftriaxone and Silvadene wraps. Recommendation: Continue present meds including blood pressure medications, consider discharge planning in the morning, we will see the patient on when necessary basis. Time with Patient: Less than 30
[2018-04-17] MEDS: NIFEdipine XL 90 MG TAB.ER.24 PO STA (16:20)
[2018-04-17 17:36] LABS: Glucose,Whole Blood 163 mg/dL (75-99)
[2018-04-17] MEDS ORDERED: ENALAPRILAT 1.25 MG/ML 1 ML VIAL IVP STA (23:54)
[2018-04-18] MEDS: hydrALAZINE HCL 50 MG TAB PO SCH ×4 (00:01→21:09)
[2018-04-18] MEDS: ASPIRIN 81 MG PO SCH ×2 (00:01→21:09)
[2018-04-18] MEDS: LORazepam 1 MG TAB PO SCH ×3 (00:01→21:09)
[2018-04-18] MEDS: NIFEdipine XL 90 MG TAB.ER.24 PO STA (00:01)
[2018-04-18 05:44] LABS: Basophils % (A) 0 %; Eosinophils # (A) 0.4 k/uL (0-0.7); Eosinophils % (A) 5 %; HGB 9.6 gm/dL (11.4-16.0); Hypochromasia Slight; Lymphocytes # (A) 1.2 k/uL (1.0-4.8); Lymphocytes % (A) 18 %; MCH 30.3 pg (25.0-35.0); MCHC 30.1 g/dL (31.0-37.0); MCV 100.8 fL (80.0-100.0); Macrocytosis Slight; Mean Platelet Volume 7.8; Monocytes # (A) 0.5 k/uL (0-1.0); Monocytes % (A) 8 %; Neutrophils # (A) 4.5 k/uL (1.3-7.7); Neutrophils % (A) 66 %; Platelet Count 347 k/uL (150-450); RBC 3.17 m/uL (3.80-5.40); RDW 15.2 % (11.5-15.5); WBC 6.8 k/uL (3.8-10.6)
[2018-04-18 05:59] LABS: Calcium 9.1 mg/dL (8.4-10.2); Magnesium 2.3 mg/dL (1.6-2.3); Phosphorus 4.2 mg/dL (2.5-4.5); Potassium 3.9 mmol/L (3.5-5.1)
[2018-04-18 07:20] LABS: Glucose,Whole Blood 151 mg/dL (75-99)
--- NOTE | 2018-04-18 08:21 | XR ---
EXAMINATION TYPE: XR chest 1V DATE OF EXAM: 04/18/2018 COMPARISON: 04/17/2018 HISTORY: Shortness of breath TECHNIQUE: Single frontal view of the chest is obtained. FINDINGS: There is improving pulmonary vascular congestion and interstitial edema, nearly resolved. Cardiomegaly remains with postoperative changes the chest. There is mild generalized osseous deminera lization. No appreciable pneumothorax or pleural effusion. IMPRESSION: Near complete resolution of the minimal residual interstitial edema and similar cardiome darwin.
[2018-04-18] MEDS: INSULIN ASPART 100 UNIT/ML 1 ML 10 ML VIAL SQ SCH ×4 (08:27→21:09)
[2018-04-18] MEDS: ENOXAPARIN 40 MG/0.4 ML SYRINGE SQ SCH (08:27)
[2018-04-18] MEDS: FERROUS SULFATE 325 MG TAB PO SCH (08:28)
[2018-04-18] MEDS: LOSARTAN 50 MG TAB PO SCH (08:28)
[2018-04-18] MEDS: POTASSIUM CHLORIDE ER 20 MEQ TAB.ER PO SCH (08:28)
[2018-04-18] MEDS: ACETAMINOPHEN TAB 325 MG TAB PO PRN ×2 (08:28→16:26)
[2018-04-18] MEDS: TORSEMIDE 20 MG TAB PO SCH (08:28)
[2018-04-18] MEDS: NIFEdipine XL 90 MG TAB.ER.24 PO SCH (08:29)
[2018-04-18] MEDS: CHOLECALCIFEROL 1,000 UNIT TAB PO SCH (08:29)
[2018-04-18] MEDS: DOXAZOSIN 4 MG TAB PO SCH (12:08)
[2018-04-18] MEDS: ALLOPURINOL 100 MG TAB PO SCH (12:08)
[2018-04-18] MEDS: ATORVASTATIN 80 MG TAB PO SCH (12:09)
[2018-04-18] MEDS: cefTRIAXone 2,000 MG in SODIUM CHLORIDE 0.9% 100 ML IVPB SCH (12:09)
[2018-04-18] MEDS: CYANOCOBALAMIN 500 MCG TAB PO SCH (12:09)
[2018-04-18] MEDS: ASCORBIC ACID 500 MG TAB PO SCH (12:09)
[2018-04-18 12:33] LABS: Glucose,Whole Blood 139 mg/dL (75-99)
--- NOTE | 2018-04-18 15:13 | PN ---
PROGRESS NOTE The patient is admitted to hospital with severe uncontrolled hypertension. She is currently on multiple antihypertensives including hydralazine 100 t.i.d., Cozaar 100 daily, Procardia XL 90 daily. Blood pressure is still somewhat poorly controlled this morning at 160s. I am adding Cardura 4 mg daily. She has sinus bradycardia but is asymptomatic otherwise. Overall, symptoms have improved since admission. EXAM: Heart rate is 60 beats per minute, blood pressure is 106/73, O2 sat is 96% on room air. There is no jugular venous distention. Chest exam reveals good air entry bilaterally. Heart exam reveals first and second heart sounds. S4 is heard. There is an ejection systolic murmur in the aortic area. Abdomen is soft. Exam of extremities did not reveal any edema. Peripheral pulses are felt. LABS: Show potassium is 3.9, creatinine is 1.1, hemoglobin is 9.6. ASSESSMENT: 1. Severe uncontrolled hypertension. 2. Hypertrophic cardiomyopathy. PLAN: We will control her blood pressure. Will start her on Cardura. If necessary, increase the dose to 8 mg. MMODL / IJN: [id number] /
--- NOTE | 2018-04-18 15:43 | P.PN ---
Subjective Progress Note Date: 04/18/18 This is an 82-year-old female patient of Dr. Bill and Dr. Diana with past medical history of coronary artery disease status post CABG in 2011 followed by myocardial infarction, diabetes mellitus type 2 insulin requiring, hyperlipidemia, hypertension, cervical stenosis, chronic back pain. She had a hospitalization in June 2017 for acute episode of confusion and disorientation secondary to accelerated hypertension and hypoglycemia. She was also treated for acute kidney injury. She also had a hospitalization in September 2017 which time she presented with chest pain and dobutamine stress echocardiogram was negative for stress-induced ischemia. Patient now presents with lower extremity pain and edema with exertional dyspnea. Patient states her main concern was increased edema to her legs. She states that shortness of breath was not so bad. She does have a chronic scar to the right lower extremity secondary to vein harvesting for CABG. She denies having oxygen at home. She normally uses 2 pillows to sleep. Patient came into [facility] emergency center for evaluation. Chest x-ray shows new small pleural effusions and pulmonary interstitial edema compared to last exam and consistent with mild heart failure. Ultrasound venous Doppler duplex of the lower extremities negative for DVT bilaterally. Initial blood pressure 203/100, white count 6.4, hemoglobin 10.2. Troponin 0.067, creatinine 0.88. ProBNP 9180. Patient received labetalol IV, hydralazine IV, Catapres oral in the ER for blood pressure control. She was started on Lasix 40 mg IV every 12 hours and admitted to the selective care unit and cardiology consult requested. Patient states that she has had increased urine output since she started on IV Lasix. Echocardiogram reveals EF of 40-45% with severe concentric left hypertrophy, LA severely dilated greater than 40, mild aortic valve sclerosis, mild mitral regurgitation, mild tricuspid regurgitation, mild pulmonary hypertension. Patient also had 2 episodes of bradycardia with heart rate less than 20 and the metipranolol started by the ER was discontinued by cardiology. Patient has been asymptomatic. Her heart rate subsequently running in the 30s and 40s. 04/15: Repeat chest x-ray shows cardiomegaly with slight improving vascular prominence. Patient has had ongoing high blood pressure readings and Norvasc was added early this morning. Cardiology is now the patient intensive care unit to place on nitroglycerin drip to titrate for blood pressure. Consult added for Dr. Javed. Patient denies having any headache or blurred vision this morning. She continues to have lower extremity swelling and redness.. 04/16: Patient had episode of hallucination last night where she thought men were in her room. This is most likely related to her hypertension. There is concern for underlying vascular dementia which will be addressed after this acute inpatient visit. Patient states she is feeling much better today. She denies any shortness of breath. Lower extremity edema is improving. 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 EKG revealed Mobitz type I. Patient is currently in a sinus rhythm with first-degree heart block. Patient remains on nitroglycerin drip and is receiving oral antihypertensives. Patient is known to have trouble with many antihypertensive medications including beta blockers. PT and OT are on with plan for subacute rehab at discharge. The patient's and son are at the bedside and all questions have been answered. 04/17: Repeat chest x-ray shows cardiomegaly and improving vascular congestion. Blood pressure 163/54. She is off the nitroglycerin drip and currently on Norvasc, hydralazine, losartan and Lasix. Lasix is 40 mg IV every 12 hours. We 'll add in scheduled Ativan for morning to her already scheduled bedtime. Shortness of breath and lower extremity edema is improved. Erythema to the lower extremities is much improved as well. She denies having a good appetite and is not eating very much. She denies any abdominal pain. She did have a bowel movement. 04/18: The patient remains in intensive care unit. 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 All her medications have been made oral but she did receive IV Vasotec last evening. Patient had another episode of delirium and refused to take her oral medications for blood pressure. Plan is to monitor for the next 2448 hrs. and discharge to [facility] for subacute rehab. Review of Systems Constitutional: Reports fatigue, Reports weakness, Denies chills, Denies fever, reports poor appetite Eyes: denies blurred vision, denies pain Ears, nose, mouth and throat: Denies headache, Denies sore throat, Denies vertigo Cardiovascular: Reports decreased exercise tolerance, Reports dyspnea on exertion, Reports edema, Reports leg edema, Reports shortness of breath, Denies chest pain, Denies syncope Respiratory: Denies dyspnea, Denies cough, Denies cough with sputum, Denies excessive sputum, Denies hemoptysis, Denies home oxygen, Denies wheezing Gastrointestinal: Denies abdominal pain, Denies diarrhea, Denies nausea, Denies vomiting, reports lack of appetite Genitourinary: Denies dysuria, Denies hematuria, Denies urgency, Denies urinary frequency Musculoskeletal: Denies frequent falls, Denies gait dysfunction, Denies myalgias Integumentary: Denies pruritus, Denies rash, Denies wounds Neurological: Denies change in mentation, Denies change in speech, Denies confusion, Denies convulsions, Denies head injury, Denies headaches, Denies numbness, Denies seizures, Denies weakness Psychiatric: Reports anxiety, Denies depression Endocrine: Denies fatigue, Denies weight change Objective - Vital Signs Vital signs: Vital Signs Temp 97.6 F 04/17/18 16:00 Pulse 62 04/18/18 06:00 Resp 8 L 04/18/18 06:00 BP 162/55 04/18/18 06:00 Pulse Ox 94 L 04/18/18 06:00 Intake & Output 04/17/18 04/18/18 04/18/18 18:59 06:59 18:59 Intake Total 625 135 Output Total 650 625 Balance -25 -490 Weight 71.9 kg Intake: IV 45 135 .9 kvo 45 135 Intake, IV Titration 100 Amount cefTRIAXone 2,000 mg In 100 Sodium Chloride 0.9% 100 ml @ 100 mls/hr IVPB DAILY@1200 [facility] Rx#: [id number] Oral 480 Output: Urine 650 625 Other: Voiding Method Indwelling Catheter Indwelling Catheter - Exam Gen: This is an 83-year-old female. She is resting in ICU bed and appears to be comfortable. HEENT: Head is atraumatic, normocephalic. Pupils equal, round. Sclerae is anicteric. NECK: Supple. No JVD. No lymphadenopathy. No thyromegaly. LUNGS: Diminished bilaterally. No wheezes or rhonchi. No intercostal retractions. HEART: Regular rate and rhythm. Systolic murmur. ABDOMEN: Soft. Bowel sounds are present. No masses. No tenderness. EXTREMITIES: Erythema and edema to the bilateral lower extremities, improving. Dorsalis pedis +2 bilaterally. NEUROLOGICAL: Patient is awake, alert and oriented x3. Cranial nerves 2 through 12 are grossly intact. - Labs CBC & Chem 7: 04/18/18 04:54 04/18/18 04:54 Labs: Abnormal Lab Results - Last 24 Hours (Table) 04/17/18 04/17/18 04/18/18 Range/Units 11:55 17:25 04:54 RBC 3.17 L (3.80-5.40) m/uL Hgb 9.6 L (11.4-16.0) gm/dL Hct 32.0 L (34.0-46.0) % MCV 100.8 H (80.0-100.0) fL MCHC 30.1 L (31.0-37.0) g/dL BUN (7-17) mg/dL Creatinine (0.52-1.04) mg/dL Glucose (74-99) mg/dL POC Glucose (mg/dL) 158 H 163 H (75-99) mg/dL 04/18/18 04/18/18 Range/Units 04:54 07:09 RBC (3.80-5.40) m/uL Hgb (11.4-16.0) gm/dL Hct (34.0-46.0) % MCV (80.0-100.0) fL MCHC (31.0-37.0) g/dL BUN 26 H (7-17) mg/dL Creatinine 1.17 H (0.52-1.04) mg/dL Glucose 137 H (74-99) mg/dL POC Glucose (mg/dL) 151 H (75-99) mg/dL Assessment and Plan Plan: 1. Acute on chronic systolic heart failure. Continue oral Demadex. Monitor I& O and daily weights, electrolytes and kidney function Cardiology consult is appreciated. 2. Accelerated hypertension requiring IV medication in the ER. Continue hydralazine 100 mg 3 times daily, losartan 100 mg daily, Demadex 20 mg daily, Cardura 4 mg daily. Cardiology consult appreciated. 3. Hyperlipidemia. Continue Lipitor 80 mg daily. 4. Chronic kidney disease stage III, stable. 5. Hypertension. Continue losartan, hydralazine, Demadex, Cardura. 6. Diabetes mellitus type 2, insulin requiring. NovoLog scale before meals and at bedtime 7. Anemia of chronic disease. Continue ferrous sulfate 325 mg daily 8. Gastroesophageal reflux disease and GI prophylaxis. Continue omeprazole. 9. DVT prophylaxis. Subcu heparin 10. Recurrent depression. Continue Lexapro 5 mg daily--son states that patient has not been taking his medication although it is on her list. 11. Acute bilateral lower extremity cellulitis. Patient will be started on ceftriaxone, Silvadene wraps. 12. Episodes of severe bradycardia, EKG with Mobitz type I heart block. Metoprolol which was started in the ER has been discontinued. Discharge plan: [facility] in the next 24 hours. Impression and plan of care have been directed as dictated by the signing physician. Talia Schneider nurse practitioner acting as scribe for signing physician.
--- NOTE | 2018-04-18 16:13 | PN ---
PROGRESS NOTE This patient is medical records, vital signs and lab tests are reviewed. Patient is admitted with hypertensive emergency and congestive cardiac failure. Patient's echocardiogram shows severe degree of left ventricular hypertrophy with mid cavitary obliteration. Patient's rhythm strips were reviewed. Patient had intermittent episodes of sinus bradycardia. Patient's heart rate now is 60 per minute. Blood pressure is 155/57 mmHg. First and second heart sounds are normal. There is a mid systolic murmur noted. Lungs are clear to auscultation and percussion. Patient's dose of hydralazine is increased. We will continue the patient on amlodipine. MMODL / IJN: [id number] /
--- NOTE | 2018-04-18 16:19 | PN ---
PROGRESS NOTE DATE OF SERVICE: 04/17/2018 This patient remains comfortable; denies any orthopnea or PND. Patient's nitroglycerin drip is discontinued. Blood pressure now is 160/54 mmHg. No significant bradyarrhythmias were noted. First and second heart sounds are normal. Patient does have a mid systolic murmur. Creatinine is 1.08. PLAN: We will discontinue Norvasc and try the patient on Procardia XL 90 mg daily and continue the rest of the medications. Patient's heart failure is improving. We will discontinue IV Lasix and put the patient on oral Demadex 20 mg daily. MMODL / IJN: [id number] /
[2018-04-18 17:20] LABS: Glucose,Whole Blood 168 mg/dL (75-99)
[2018-04-18 21:08] LABS: Glucose,Whole Blood 171 mg/dL (75-99)
[2018-04-19 05:16] LABS: Basophils % (A) 0 %; Eosinophils # (A) 0.3 k/uL (0-0.7); Eosinophils % (A) 8 %; HCT 31.1 % (34.0-46.0); HGB 9.9 gm/dL (11.4-16.0); Hypochromasia Slight; Lymphocytes # (A) 1.2 k/uL (1.0-4.8); Lymphocytes % (A) 27 %; MCH 31.8 pg (25.0-35.0); MCHC 31.8 g/dL (31.0-37.0); MCV 100.1 fL (80.0-100.0); Macrocytosis Slight; Monocytes # (A) 0.4 k/uL (0-1.0); Monocytes % (A) 8 %; Neutrophils # (A) 2.4 k/uL (1.3-7.7); Neutrophils % (A) 54 %; Platelet Count 298 k/uL (150-450); RBC 3.11 m/uL (3.80-5.40); RDW 14.9 % (11.5-15.5); WBC 4.5 k/uL (3.8-10.6)
[2018-04-19 05:31] LABS: Calcium 9.1 mg/dL (8.4-10.2); Magnesium 2.5 mg/dL (1.6-2.3); Phosphorus 3.7 mg/dL (2.5-4.5)
[2018-04-19 07:13] LABS: Glucose,Whole Blood 136 mg/dL (75-99)
--- NOTE | 2018-04-19 08:34 | XR ---
EXAMINATION TYPE: XR chest 1V DATE OF EXAM: 04/19/2018 COMPARISON: 10/29/2018 INDICATION: Short of breath TECHNIQUE: Single frontal view of the chest is obtained. FINDINGS: The heart size is mildly prominent. The pulmonary vasculature is normal. The lungs are clear. Sternotomy wires are midline. IMPRESSION: 1. Mild cardiomegaly. Stable
[2018-04-19] MEDS: LOSARTAN 50 MG TAB PO SCH (09:01)
[2018-04-19] MEDS: NIFEdipine XL 90 MG TAB.ER.24 PO SCH (09:01)
[2018-04-19] MEDS: TORSEMIDE 20 MG TAB PO SCH (09:01)
[2018-04-19] MEDS: POTASSIUM CHLORIDE ER 20 MEQ TAB.ER PO SCH (09:01)
[2018-04-19] MEDS: FERROUS SULFATE 325 MG TAB PO SCH (09:02)
[2018-04-19] MEDS: hydrALAZINE HCL 50 MG TAB PO SCH ×3 (09:02→20:52)
[2018-04-19] MEDS: DOXAZOSIN 4 MG TAB PO SCH (09:02)
[2018-04-19] MEDS: CHOLECALCIFEROL 1,000 UNIT TAB PO SCH (09:02)
[2018-04-19] MEDS: LORazepam 1 MG TAB PO SCH ×2 (09:02→20:52)
[2018-04-19] MEDS: INSULIN ASPART 100 UNIT/ML 1 ML 10 ML VIAL SQ SCH ×4 (09:02→20:56)
[2018-04-19] MEDS: ENOXAPARIN 30 MG/0.3 ML SYRINGE SQ SCH (09:03)
[2018-04-19] MEDS: cefTRIAXone 2,000 MG in SODIUM CHLORIDE 0.9% 100 ML IVPB SCH (11:27)
[2018-04-19] MEDS: CYANOCOBALAMIN 500 MCG TAB PO SCH (11:28)
[2018-04-19] MEDS: ALLOPURINOL 100 MG TAB PO SCH (11:28)
[2018-04-19] MEDS: ATORVASTATIN 80 MG TAB PO SCH (11:28)
[2018-04-19] MEDS: ASCORBIC ACID 500 MG TAB PO SCH (11:28)
[2018-04-19 12:35] LABS: Glucose,Whole Blood 159 mg/dL (75-99)
--- NOTE | 2018-04-19 13:59 | P.PN ---
Subjective Progress Note Date: 04/19/18 This is an 82-year-old female patient of Dr. Bill and Dr. Diana with past medical history of coronary artery disease status post CABG in 2011 followed by myocardial infarction, diabetes mellitus type 2 insulin requiring, hyperlipidemia, hypertension, cervical stenosis, chronic back pain. She had a hospitalization in June 2017 for acute episode of confusion and disorientation secondary to accelerated hypertension and hypoglycemia. She was also treated for acute kidney injury. She also had a hospitalization in September 2017 which time she presented with chest pain and dobutamine stress echocardiogram was negative for stress-induced ischemia. Patient now presents with lower extremity pain and edema with exertional dyspnea. Patient states her main concern was increased edema to her legs. She states that shortness of breath was not so bad. She does have a chronic scar to the right lower extremity secondary to vein harvesting for CABG. She denies having oxygen at home. She normally uses 2 pillows to sleep. Patient came into [facility] emergency center for evaluation. Chest x-ray shows new small pleural effusions and pulmonary interstitial edema compared to last exam and consistent with mild heart failure. Ultrasound venous Doppler duplex of the lower extremities negative for DVT bilaterally. Initial blood pressure 203/100, white count 6.4, hemoglobin 10.2. Troponin 0.067, creatinine 0.88. ProBNP 9180. Patient received labetalol IV, hydralazine IV, Catapres oral in the ER for blood pressure control. She was started on Lasix 40 mg IV every 12 hours and admitted to the selective care unit and cardiology consult requested. Patient states that she has had increased urine output since she started on IV Lasix. Echocardiogram reveals EF of 40-45% with severe concentric left hypertrophy, LA severely dilated greater than 40, mild aortic valve sclerosis, mild mitral regurgitation, mild tricuspid regurgitation, mild pulmonary hypertension. Patient also had 2 episodes of bradycardia with heart rate less than 20 and the metipranolol started by the ER was discontinued by cardiology. Patient has been asymptomatic. Her heart rate subsequently running in the 30s and 40s. 04/15: Repeat chest x-ray shows cardiomegaly with slight improving vascular prominence. Patient has had ongoing high blood pressure readings and Norvasc was added early this morning. Cardiology is now the patient intensive care unit to place on nitroglycerin drip to titrate for blood pressure. Consult added for Dr. Javed. Patient denies having any headache or blurred vision this morning. She continues to have lower extremity swelling and redness.. 04/16: Patient had episode of hallucination last night where she thought men were in her room. This is most likely related to her hypertension. There is concern for underlying vascular dementia which will be addressed after this acute inpatient visit. Patient states she is feeling much better today. She denies any shortness of breath. Lower extremity edema is improving. 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 EKG revealed Mobitz type I. Patient is currently in a sinus rhythm with first-degree heart block. Patient remains on nitroglycerin drip and is receiving oral antihypertensives. Patient is known to have trouble with many antihypertensive medications including beta blockers. PT and OT are on with plan for subacute rehab at discharge. The patient's and son are at the bedside and all questions have been answered. 04/17: Repeat chest x-ray shows cardiomegaly and improving vascular congestion. Blood pressure 163/54. She is off the nitroglycerin drip and currently on Norvasc, hydralazine, losartan and Lasix. Lasix is 40 mg IV every 12 hours. We 'll add in scheduled Ativan for morning to her already scheduled bedtime. Shortness of breath and lower extremity edema is improved. Erythema to the lower extremities is much improved as well. She denies having a good appetite and is not eating very much. She denies any abdominal pain. She did have a bowel movement. 04/18: The patient remains in intensive care unit. 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 All her medications have been made oral but she did receive IV Vasotec last evening. Patient had another episode of delirium and refused to take her oral medications for blood pressure. Plan is to monitor for the next 2448 hrs. and discharge to [facility] for subacute rehab. 04/19: Patient remains in intensive care unit awaiting a cardiac stepdown unit floor. Patient states she slept well last night. She is eating well and had a bowel movement. Her blood pressure has been stable. Blood pressure this morning was 153/48. Pulse ox is 94% on room air. Heart rate is running in the 60s and 70s. WBC 4.5, hemoglobin 9.9, BUN 28 creatinine 1.15. Capillary blood glucose running between 130s 5 and 171. No issues overnight with hallucinations. Anticipate discharge to [facility] tomorrow. Patient and son are at the bedside and all questions answered. Review of Systems Constitutional: Reports fatigue, Reports weakness, Denies chills, Denies fever, denies poor appetite Eyes: denies blurred vision, denies pain Ears, nose, mouth and throat: Denies headache, Denies sore throat, Denies vertigo Cardiovascular: Reports decreased exercise tolerance, Reports dyspnea on exertion, Reports edema, Reports leg edema, Reports shortness of breath, Denies chest pain, Denies syncope Respiratory: Denies dyspnea, Denies cough, Denies cough with sputum, Denies excessive sputum, Denies hemoptysis, Denies home oxygen, Denies wheezing Gastrointestinal: Denies abdominal pain, Denies diarrhea, Denies nausea, Denies vomiting, reports lack of appetite Genitourinary: Denies dysuria, Denies hematuria, Denies urgency, Denies urinary frequency Musculoskeletal: Denies frequent falls, Denies gait dysfunction, Denies myalgias Integumentary: Denies pruritus, Denies rash, Denies wounds Neurological: Denies change in mentation, Denies change in speech, Denies confusion, Denies convulsions, Denies head injury, Denies headaches, Denies numbness, Denies seizures, Denies weakness Psychiatric: Reports anxiety, Denies depression Endocrine: Denies fatigue, Denies weight change Objective - Vital Signs Vital signs: Vital Signs Temp 97.6 F 04/19/18 08:00 Pulse 67 04/19/18 09:00 Resp 17 04/19/18 09:00 BP 153/48 04/19/18 09:00 Pulse Ox 93 L 04/19/18 09:00 Intake & Output 04/18/18 04/19/18 04/19/18 18:59 06:59 18:59 Intake Total 145 45 15 Output Total 540 335 24 Balance -395 -290 -9 Weight 72.8 kg Intake: IV 45 45 15 .9 kvo 45 45 15 Intake, IV Titration 100 Amount cefTRIAXone 2,000 mg In 100 Sodium Chloride 0.9% 100 ml @ 100 mls/hr IVPB DAILY@1200 [facility] Rx#: [id number] Output: Urine 540 335 24 Other: Voiding Method Indwelling Catheter Indwelling Catheter Indwelling Catheter - Exam Gen: This is an 83-year-old female. She is resting in ICU bed and appears to be comfortable. Patient's and son are at the bedside. HEENT: Head is atraumatic, normocephalic. Pupils equal, round. Sclerae is anicteric. NECK: Supple. No JVD. No lymphadenopathy. No thyromegaly. LUNGS: Diminished bilaterally. No wheezes or rhonchi. No intercostal retractions. HEART: Regular rate and rhythm. Systolic murmur. ABDOMEN: Soft. Bowel sounds are present. No masses. No tenderness. EXTREMITIES: Erythema and edema to the bilateral lower extremities, improving. Dorsalis pedis +2 bilaterally. NEUROLOGICAL: Patient is awake, alert and oriented x3. Cranial nerves 2 through 12 are grossly intact. - Labs CBC & Chem 7: 04/19/18 04:55 04/19/18 04:55 Labs: Abnormal Lab Results - Last 24 Hours (Table) 04/18/18 04/18/18 04/18/18 Range/Units 12:21 17:09 20:56 RBC (3.80-5.40) m/uL Hgb (11.4-16.0) gm/dL Hct (34.0-46.0) % MCV (80.0-100.0) fL Chloride (98-107) mmol/L BUN (7-17) mg/dL Creatinine (0.52-1.04) mg/dL Glucose (74-99) mg/dL POC Glucose (mg/dL) 139 H 168 H 171 H (75-99) mg/dL Magnesium (1.6-2.3) mg/dL 04/19/18 04/19/18 04/19/18 Range/Units 04:55 04:55 07:00 RBC 3.11 L (3.80-5.40) m/uL Hgb 9.9 L (11.4-16.0) gm/dL Hct 31.1 L (34.0-46.0) % MCV 100.1 H (80.0-100.0) fL Chloride 108 H (98-107) mmol/L BUN 28 H (7-17) mg/dL Creatinine 1.15 H (0.52-1.04) mg/dL Glucose 135 H (74-99) mg/dL POC Glucose (mg/dL) 136 H (75-99) mg/dL Magnesium 2.5 H (1.6-2.3) mg/dL Assessment and Plan Plan: 1. Acute on chronic systolic heart failure. Continue oral Demadex. Monitor I& O and daily weights, electrolytes and kidney function Cardiology consult is appreciated. 2. Accelerated hypertension requiring IV medication in the ER. Continue hydralazine 100 mg 3 times daily, losartan 100 mg daily, Demadex 20 mg daily, Cardura 4 mg daily. Cardiology consult appreciated. 3. Hyperlipidemia. Continue Lipitor 80 mg daily. 4. Chronic kidney disease stage III, stable. 5. Hypertension. Continue losartan, hydralazine, Demadex, Cardura. 6. Diabetes mellitus type 2, insulin requiring. NovoLog scale before meals and at bedtime 7. Anemia of chronic disease. Continue ferrous sulfate 325 mg daily 8. Gastroesophageal reflux disease and GI prophylaxis. Continue omeprazole. 9. DVT prophylaxis. Subcu heparin 10. Recurrent depression. Continue Lexapro 5 mg daily--son states that patient has not been taking his medication although it is on her list. 11. Acute bilateral lower extremity cellulitis. Patient will be started on ceftriaxone, Silvadene wraps. 12. Episodes of severe bradycardia, EKG with Mobitz type I heart block. Metoprolol which was started in the ER has been discontinued. 12. Acute delirium most likely secondary to Ativan withdrawal. Ativan has been resumed at bedtime and in the morning scheduled. Discharge plan: [facility] in the next 24 hours. Impression and plan of care have been directed as dictated by the signing physician. Talia Schneider nurse practitioner acting as scribe for signing physician.
--- NOTE | 2018-04-19 14:55 | P.PN ---
Subjective Progress Note Date: 04/19/18 This is an 83-year-old female, who follows with Dr. Diana in the office. She has a known history of coronary artery disease with prior bypass surgery in 2011, diabetes, hyperlipidemia, hypertension, chronic back pain. Patient had most recently been in the hospital in September 2017 with symptoms of chest discomfort, she underwent a dobutamine stress echocardiographic study at that time that was negative for any reversible ischemia. She presented to the hospital on this occasion with symptoms of lower extremity pain and edema with exertional dyspnea. Cardiology consultation was initially requested because of elevated blood pressures. Ultrasound of the lower extremities was performed which was negative for DVT. Echocardiogram with Doppler study revealed an ejection fraction of 40-45% with severe concentric LVH, LA severely dilated, mild aortic valve sclerosis, mild MR , mild TR and mild pulmonary hypertension. Patient today was transferred to the stepdown unit, overall slept well last night. Blood pressure remaining stable. This morning's blood pressure 152/48, heart rate in the 70s. White blood cell count 4.5, hemoglobin 9.9, BUN 28 and creatinine 1.1. The plan is for the patient to be discharged back to [facility] tomorrow. Objective - Vital Signs Vital signs: Vital Signs Temp 97.6 F 04/19/18 08:00 Pulse 67 04/19/18 09:00 Resp 17 04/19/18 09:00 BP 153/48 04/19/18 09:00 Pulse Ox 93 L 04/19/18 09:00 Intake & Output 04/18/18 04/19/18 04/19/18 18:59 06:59 18:59 Intake Total 145 45 15 Output Total 540 335 24 Balance -395 -290 -9 Weight 72.8 kg Intake: IV 45 45 15 .9 kvo 45 45 15 Intake, IV Titration 100 Amount cefTRIAXone 2,000 mg In 100 Sodium Chloride 0.9% 100 ml @ 100 mls/hr IVPB DAILY@1200 [facility] Rx#: [id number] Output: Urine 540 335 24 Other: Voiding Method Indwelling Catheter Indwelling Catheter Indwelling Catheter - Exam Gen: This is an 83-year-old female. She is resting in ICU bed and appears to be comfortable. Patient's and son are at the bedside. HEENT: Head is atraumatic, normocephalic. Pupils equal, round. Sclerae is anicteric. NECK: Supple. No JVD. No lymphadenopathy. No thyromegaly. LUNGS: Diminished bilaterally. No wheezes or rhonchi. No intercostal retractions. HEART: Regular rate and rhythm. Systolic murmur. ABDOMEN: Soft. Bowel sounds are present. No masses. No tenderness. EXTREMITIES: Erythema and edema to the bilateral lower extremities, improving. Dorsalis pedis +2 bilaterally. NEUROLOGICAL: Patient is awake, alert and oriented x3. Cranial nerves 2 through 12 are grossly intact. - Labs CBC & Chem 7: 04/19/18 04:55 04/19/18 04:55 Labs: Abnormal Lab Results - Last 24 Hours (Table) 04/18/18 04/18/18 04/19/18 Range/Units 17:09 20:56 04:55 RBC 3.11 L (3.80-5.40) m/uL Hgb 9.9 L (11.4-16.0) gm/dL Hct 31.1 L (34.0-46.0) % MCV 100.1 H (80.0-100.0) fL Chloride (98-107) mmol/L BUN (7-17) mg/dL Creatinine (0.52-1.04) mg/dL Glucose (74-99) mg/dL POC Glucose (mg/dL) 168 H 171 H (75-99) mg/dL Magnesium (1.6-2.3) mg/dL 04/19/18 04/19/18 04/19/18 Range/Units 04:55 07:00 12:32 RBC (3.80-5.40) m/uL Hgb (11.4-16.0) gm/dL Hct (34.0-46.0) % MCV (80.0-100.0) fL Chloride 108 H (98-107) mmol/L BUN 28 H (7-17) mg/dL Creatinine 1.15 H (0.52-1.04) mg/dL Glucose 135 H (74-99) mg/dL POC Glucose (mg/dL) 136 H 159 H (75-99) mg/dL Magnesium 2.5 H (1.6-2.3) mg/dL Assessment and Plan Plan: Assessment and plan 1. Acute on chronic systolic heart failure. 2. Accelerated hypertension 3. Hyperlipidemia. 4. Chronic kidney disease stage III, stable. 5. Hypertension. 6. Diabetes mellitus type 2 7. Anemia of chronic disease. 8. Gastroesophageal reflux disease and GI prophylaxis. 9. DVT prophylaxis. 10. Recurrent depression. 11. Acute bilateral lower extremity cellulitis. 12. Episodes of severe bradycardia, EKG with Mobitz type I heart block. Metoprolol which was started in the ER has been discontinued. 13. Acute delirium most likely secondary to Ativan withdrawal. Plan Cardiology's perspective, we'll recommend to continue the patient on her current medications. Plans are being made for possible transfer back to [facility] tomorrow. DNP note has been reviewed, I agree with a documented findings and plan of care. Patient was seen and examined.
[2018-04-19 17:43] LABS: Glucose,Whole Blood 185 mg/dL (75-99)
[2018-04-19] MEDS: ASPIRIN 81 MG PO SCH (20:52)
[2018-04-19 20:55] LABS: Glucose,Whole Blood 159 mg/dL (75-99)
[2018-04-20 05:48] LABS: Glucose,Whole Blood 126 mg/dL (75-99)
[2018-04-20] MEDS: INSULIN ASPART 100 UNIT/ML 1 ML 10 ML VIAL SQ SCH ×4 (06:07→21:19)
[2018-04-20 07:43] LABS: Calcium 9.3 mg/dL (8.4-10.2); Magnesium 2.4 mg/dL (1.6-2.3); Phosphorus 3.8 mg/dL (2.5-4.5); Potassium 4.2 mmol/L (3.5-5.1)
[2018-04-20 07:57] LABS: Basophils % (A) 0 %; Eosinophils # (A) 0.4 k/uL (0-0.7); Eosinophils % (A) 7 %; HCT 31.4 % (34.0-46.0); HGB 9.7 gm/dL (11.4-16.0); Hypochromasia Slight; Lymphocytes # (A) 1.3 k/uL (1.0-4.8); Lymphocytes % (A) 25 %; MCH 31.5 pg (25.0-35.0); MCV 101.8 fL (80.0-100.0); Macrocytosis Slight; Mean Platelet Volume 8.9; Monocytes # (A) 0.4 k/uL (0-1.0); Monocytes % (A) 7 %; Neutrophils # (A) 2.9 k/uL (1.3-7.7); Neutrophils % (A) 57 %; Platelet Count 285 k/uL (150-450); RBC 3.09 m/uL (3.80-5.40); RDW 14.8 % (11.5-15.5)
--- NOTE | 2018-04-20 08:08 | XR ---
EXAMINATION TYPE: XR chest 1V DATE OF EXAM: 04/20/2018 CLINICAL HISTORY: Difficulty breathing progress study. TECHNIQUE: Single AP portable upright view of the chest is obtained. COMPARISON: Chest x-ray from one day earlier and older studies. FINDINGS: Overlying sternal wires and mediastinal clips are redemonstrated. Elevated left hemidiaphr agm is again seen. There is chronic parenchymal change bilaterally without suspicious new focal airsp gaudencio opacity, pleural effusion, or pneumothorax identified. Cardiac silhouette size is stable and enla rged. Cholecystectomy clips are noted. Underlying scoliotic curvature is present. IMPRESSION: Overall stable findings, chronic parenchymal change and cardiomegaly without new suspic ious acute pulmonary process.
[2018-04-20] MEDS: ENOXAPARIN 30 MG/0.3 ML SYRINGE SQ SCH (08:34)
[2018-04-20] MEDS: cefTRIAXone 2,000 MG in SODIUM CHLORIDE 0.9% 100 ML IVPB SCH (08:34)
[2018-04-20] MEDS: LORazepam 1 MG TAB PO SCH ×2 (08:35→20:56)
[2018-04-20] MEDS: TORSEMIDE 20 MG TAB PO SCH (08:35)
[2018-04-20] MEDS: CHOLECALCIFEROL 1,000 UNIT TAB PO SCH (08:35)
[2018-04-20] MEDS: NIFEdipine XL 90 MG TAB.ER.24 PO SCH (08:35)
[2018-04-20] MEDS: LOSARTAN 50 MG TAB PO SCH (08:35)
[2018-04-20] MEDS: POTASSIUM CHLORIDE ER 20 MEQ TAB.ER PO SCH (08:35)
[2018-04-20] MEDS: FERROUS SULFATE 325 MG TAB PO SCH (08:36)
[2018-04-20] MEDS: hydrALAZINE HCL 50 MG TAB PO SCH ×3 (08:36→20:56)
[2018-04-20] MEDS: ALLOPURINOL 100 MG TAB PO SCH (08:36)
[2018-04-20] MEDS: DOXAZOSIN 4 MG TAB PO SCH (08:36)
[2018-04-20] MEDS: CYANOCOBALAMIN 500 MCG TAB PO SCH (08:36)
[2018-04-20] MEDS: ATORVASTATIN 80 MG TAB PO SCH (08:36)
[2018-04-20] MEDS: ASCORBIC ACID 500 MG TAB PO SCH (08:36)
--- NOTE | 2018-04-20 10:37 | P.DS ---
Providers Date of admission: 04/13/18 17:48 Expected date of discharge: 04/20/18 Attending physician: Lena Singh Consults: 04/13/18 17:48 Consult Physician Routine Consulting Provider: Shital Field Consult Reason/Comments: chf Do you want consulting provider notified?: Yes 04/15/18 06:26 Consult Physician Routine Consulting Provider: Lionel Javed Consult Reason/Comments: ICU management Do you want consulting provider notified?: Yes Primary care physician: Leela Bill Hospital Course: This is an 82-year-old female patient of Dr. Bill and Dr. Diana with past medical history of coronary artery disease status post CABG in 2011 followed by myocardial infarction, diabetes mellitus type 2 insulin requiring, hyperlipidemia, hypertension, cervical stenosis, chronic back pain. She had a hospitalization in June 2017 for acute episode of confusion and disorientation secondary to accelerated hypertension and hypoglycemia. She was also treated for acute kidney injury. She also had a hospitalization in September 2017 which time she presented with chest pain and dobutamine stress echocardiogram was negative for stress-induced ischemia. Patient now presents with lower extremity pain and edema with exertional dyspnea. Patient states her main concern was increased edema to her legs. She states that shortness of breath was not so bad. She does have a chronic scar to the right lower extremity secondary to vein harvesting for CABG. She denies having oxygen at home. She normally uses 2 pillows to sleep. Patient came into [facility] emergency center for evaluation. Chest x-ray shows new small pleural effusions and pulmonary interstitial edema compared to last exam and consistent with mild heart failure. Ultrasound venous Doppler duplex of the lower extremities negative for DVT bilaterally. Initial blood pressure 203/100, white count 6.4, hemoglobin 10.2. Troponin 0.067, creatinine 0.88. ProBNP 9180. Patient received labetalol IV, hydralazine IV, Catapres oral in the ER for blood pressure control. She was started on Lasix 40 mg IV every 12 hours and admitted to the selective care unit and cardiology consult requested. Patient states that she has had increased urine output since she started on IV Lasix. Echocardiogram reveals EF of 40-45% with severe concentric left hypertrophy, LA severely dilated greater than 40, mild aortic valve sclerosis, mild mitral regurgitation, mild tricuspid regurgitation, mild pulmonary hypertension. Patient also had 2 episodes of bradycardia with heart rate less than 20 and the metipranolol started by the ER was discontinued by cardiology. Patient has been asymptomatic. Her heart rate subsequently running in the 30s and 40s. 04/15: Repeat chest x-ray shows cardiomegaly with slight improving vascular prominence. Patient has had ongoing high blood pressure readings and Norvasc was added early this morning. Cardiology is now the patient intensive care unit to place on nitroglycerin drip to titrate for blood pressure. Consult added for Dr. Javed. Patient denies having any headache or blurred vision this morning. She continues to have lower extremity swelling and redness.. 04/16: Patient had episode of hallucination last night where she thought men were in her room. This is most likely related to her hypertension. There is concern for underlying vascular dementia which will be addressed after this acute inpatient visit. Patient states she is feeling much better today. She denies any shortness of breath. Lower extremity edema is improving. Patient did have episode of bradycardia water plumber. EKG revealed Mobitz type I. Patient is currently in a sinus rhythm with first-degree heart block. Patient remains on nitroglycerin drip and is receiving oral antihypertensives. Patient is known to have trouble with many antihypertensive medications including beta blockers. PT and OT are on with plan for subacute rehab at discharge. The patient's and son are at the bedside and all questions have been answered. 04/17: Repeat chest x-ray shows cardiomegaly and improving vascular congestion. Blood pressure 163/54. She is off the nitroglycerin drip and currently on Norvasc, hydralazine, losartan and Lasix. Lasix is 40 mg IV every 12 hours. We 'll add in scheduled Ativan for morning to her already scheduled bedtime. Shortness of breath and lower extremity edema is improved. Erythema to the lower extremities is much improved as well. She denies having a good appetite and is not eating very much. She denies any abdominal pain. She did have a bowel movement. 04/18: The patient remains in intensive care unit. 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 All her medications have been made oral but she did receive IV Vasotec last evening. Patient had another episode of delirium and refused to take her oral medications for blood pressure. Plan is to monitor for the next 2448 hrs. and discharge to [facility] for subacute rehab. 04/19: Patient remains in intensive care unit awaiting a cardiac stepdown unit floor. Patient states she slept well last night. She is eating well and had a bowel movement. Her blood pressure has been stable. Blood pressure this morning was 153/48. Pulse ox is 94% on room air. Heart rate is running in the 60s and 70s. WBC 4.5, hemoglobin 9.9, BUN 28 creatinine 1.15. Capillary blood glucose running between 130s 5 and 171. No issues overnight with hallucinations. Anticipate discharge to [facility] tomorrow. Patient and son are at the bedside and all questions answered. 04/20: Repeat chest x-ray shows overall stable findings, chronic branch mole change in cardiomegaly without new suspicious acute pulmonary process. Patient denies any new complaints. Patient's sister is at the bedside. Blood pressure 144/60, heart rate running in the 60s, pulse ox 95% on room air. WBC 5, hemoglobin 9.7, platelet count 285, sodium 140, potassium 4.2, BUN 30 creatinine 1.3, magnesium 2.4. Cardiology is recommending continuing the current medications. Plan is for patient to be at [facility] for most likely less than 3 weeks. Patient will be transferred to [facility] for subacute rehab under the care of Dr. Bill once insurance authorization is completed. Discharge diagnoses: 1. Acute on chronic systolic heart failure. 2. Hypertensive emergency. 3. Hyperlipidemia. 4. Chronic kidney disease stage III, stable. 5. Hypertension. 6. Diabetes mellitus type 2, insulin requiring. 7. Anemia of chronic disease. 8. Gastroesophageal reflux disease. 9. Recurrent depression. 10. Acute bilateral lower extremity cellulitis. 12. Episodes of severe bradycardia, EKG with Mobitz type I heart block. 12. Acute delirium most likely secondary to Ativan withdrawal. Discharge plan: [facility] under the care of Dr. Bill. Impression and plan of care have been directed as dictated by the signing physician. Talia Schneider nurse practitioner acting as scribe for signing physician. Patient Condition at Discharge: Good Plan - Discharge Summary New Discharge Prescriptions: New Acetaminophen Tab [Tylenol] 650 mg PO Q6HR PRN tab PRN Reason: Fever And/ Or Pain Cefuroxime Axetil [Ceftin] 500 mg PO BID #14 tab Doxazosin [Cardura] 4 mg PO DAILY tab Losartan [Cozaar] 100 mg PO DAILY tab NIFEdipine XL [Procardia XL] 90 mg PO DAILY tab.er.24 SILVER sulfADIAZINE CREAM [Silvadene Cream] 1 applic TOPICAL DAILY applic Torsemide [Demadex] 20 mg PO DAILY tab Continue Omeprazole 40 mg PO DAILY PRN PRN Reason: Heartburn Aspirin 162 mg PO HS Allopurinol 100 mg PO DAILY@1200 Nitroglycerin 0.2MG/Hr Patch [Nitro-Dur 0.2MG/Hr Patch] 1 patch TRANSDERM Q24H PRN PRN Reason: Chest Pain Ferrous Sulfate [Feosol] 325 mg PO DAILY Cholecalciferol [Vitamin D3] 2,000 unit PO DAILY Ascorbic Acid [Vitamin C] 500 mg PO DAILY@1200 Atorvastatin [Lipitor] 80 mg PO DAILY@1200 hydrALAZINE HCL [Apresoline] 100 mg PO TID Potassium Chloride [Klor-Con 10] 20 meq PO DAILY Insulin NPL/Insulin Lispro [humaLOG MIX 75-25 VIAL] See Protocol SQ ACHS Ubidecarenone [Co Q-10] 100 mg PO DAILY@1200 Cyanocobalamin [Vitamin B-12] 500 mcg PO DAILY@1200 Changed LORazepam [Ativan] 1 mg PO BID #6 tab Discontinued Furosemide [Lasix] 80 mg PO DAILY@1200 Escitalopram [Lexapro] 5 mg PO DAILY Losartan [Cozaar] 50 mg PO DAILY Discharge Medication List Allopurinol 100 mg PO DAILY@1200 03/05/14 [History] Aspirin 162 mg PO HS 03/05/14 [History] Omeprazole 40 mg PO DAILY PRN 03/05/14 [History] Ascorbic Acid [Vitamin C] 500 mg PO DAILY@1200 09/24/14 [History] Atorvastatin [Lipitor] 80 mg PO DAILY@1200 09/24/14 [History] Cholecalciferol [Vitamin D3] 2,000 unit PO DAILY 09/24/14 [History] Ferrous Sulfate [Feosol] 325 mg PO DAILY 09/24/14 [History] Nitroglycerin 0.2MG/Hr Patch [Nitro-Dur 0.2MG/Hr Patch] 1 patch TRANSDERM Q24H PRN 09/24/14 [History] hydrALAZINE HCL [Apresoline] 100 mg PO TID 07/04/17 [History] Potassium Chloride [Klor-Con 10] 20 meq PO DAILY 09/16/17 [History] Cyanocobalamin [Vitamin B-12] 500 mcg PO DAILY@1200 04/13/18 [History] Insulin NPL/Insulin Lispro [humaLOG MIX 75-25 VIAL] See Protocol SQ ACHS [History] Ubidecarenone [Co Q-10] 100 mg PO DAILY@1200 04/13/18 [History] Acetaminophen Tab [Tylenol] 650 mg PO Q6HR PRN tab 04/20/18 [Rx] Cefuroxime Axetil [Ceftin] 500 mg PO BID #14 tab 04/20/18 [Rx] Doxazosin [Cardura] 4 mg PO DAILY tab 04/20/18 [Rx] LORazepam [Ativan] 1 mg PO BID #6 tab 04/20/18 [Rx] Losartan [Cozaar] 100 mg PO DAILY tab 04/20/18 [Rx] NIFEdipine XL [Procardia XL] 90 mg PO DAILY tab.er.24 04/20/18 [Rx] SILVER sulfADIAZINE CREAM [Silvadene Cream] 1 applic TOPICAL DAILY applic 04/20 [Rx] Torsemide [Demadex] 20 mg PO DAILY tab 04/20/18 [Rx] Follow up Appointment(s)/Referral(s): Leela Bill MD [Primary Care Provider] - 1-2 days Arron Vann [NON-STAFF] - As Needed [facility] Visiting Nurse, [NON-STAFF] - Activity/Diet/Wound Care/Special Instructions: Glucerna bid
[2018-04-20 11:38] LABS: Glucose,Whole Blood 188 mg/dL (75-99)
--- NOTE | 2018-04-20 12:08 | P.PN ---
Subjective Progress Note Date: 04/20/18 This is an 83-year-old female, who follows with Dr. Diana in the office. She has a known history of coronary artery disease with prior bypass surgery in 2011, diabetes, hyperlipidemia, hypertension, chronic back pain. Patient had most recently been in the hospital in September 2017 with symptoms of chest discomfort, she underwent a dobutamine stress echocardiographic study at that time that was negative for any reversible ischemia. She presented to the hospital on this occasion with symptoms of lower extremity pain and edema with exertional dyspnea. Cardiology consultation was initially requested because of elevated blood pressures. Ultrasound of the lower extremities was performed which was negative for DVT. Echocardiogram with Doppler study revealed an ejection fraction of 40-45% with severe concentric LVH, LA severely dilated, mild aortic valve sclerosis, mild MR , mild TR and mild pulmonary hypertension. Patient today was transferred to the stepdown unit, overall slept well last night. Blood pressure remaining stable. This morning's blood pressure 152/48, heart rate in the 70s. White blood cell count 4.5, hemoglobin 9.9, BUN 28 and creatinine 1.1. The plan is for the patient to be discharged back to [facility] tomorrow. 04/20/2018 Patient was seen and examined this morning, overall doing well. Anticipating transferred back to [facility] today. Blood pressure 144/60, heart rate in the 60s , 95% on room air. White blood cell count 5.0, hemoglobin 9.7, platelet count 285. Sodium 140, potassium 4.2, BUN 30, creatinine 1.3. Magnesium 2.4. Objective - Vital Signs Vital signs: Vital Signs Temp 97.2 F L 04/20/18 08:00 Pulse 69 04/20/18 11:39 Resp 18 04/20/18 08:00 BP 146/59 04/20/18 08:00 Pulse Ox 95 04/20/18 08:00 Intake & Output 04/19/18 04/20/18 04/20/18 18:59 06:59 18:59 Intake Total 135 Output Total 24 Balance 111 Weight 66.9 kg Intake: IV 15 .9 kvo 15 Oral 120 Output: Urine 24 Other: Voiding Method Indwelling Catheter Toilet # Voids 0 1 - Exam Gen: This is an 83-year-old female. She is resting in ICU bed and appears to be comfortable. Patient's and son are at the bedside. HEENT: Head is atraumatic, normocephalic. Pupils equal, round. Sclerae is anicteric. NECK: Supple. No JVD. No lymphadenopathy. No thyromegaly. LUNGS: Diminished bilaterally. No wheezes or rhonchi. No intercostal retractions. HEART: Regular rate and rhythm. Systolic murmur. ABDOMEN: Soft. Bowel sounds are present. No masses. No tenderness. EXTREMITIES: Erythema and edema to the bilateral lower extremities, improving. Dorsalis pedis +2 bilaterally. NEUROLOGICAL: Patient is awake, alert and oriented x3. Cranial nerves 2 through 12 are grossly intact. - Labs CBC & Chem 7: 04/20/18 06:43 04/20/18 06:43 Labs: Abnormal Lab Results - Last 24 Hours (Table) 04/19/18 04/19/18 04/19/18 Range/Units 12:32 17:21 20:53 RBC (3.80-5.40) m/uL Hgb (11.4-16.0) gm/dL Hct (34.0-46.0) % MCV (80.0-100.0) fL Chloride (98-107) mmol/L BUN (7-17) mg/dL Creatinine (0.52-1.04) mg/dL Glucose (74-99) mg/dL POC Glucose (mg/dL) 159 H 185 H 159 H (75-99) mg/dL Magnesium (1.6-2.3) mg/dL 04/20/18 04/20/18 04/20/18 Range/Units 05:46 06:43 06:43 RBC 3.09 L (3.80-5.40) m/uL Hgb 9.7 L (11.4-16.0) gm/dL Hct 31.4 L (34.0-46.0) % MCV 101.8 H (80.0-100.0) fL Chloride 108 H (98-107) mmol/L BUN 30 H (7-17) mg/dL Creatinine 1.37 H (0.52-1.04) mg/dL Glucose 130 H (74-99) mg/dL POC Glucose (mg/dL) 126 H (75-99) mg/dL Magnesium 2.4 H (1.6-2.3) mg/dL 04/20/18 Range/Units 11:29 RBC (3.80-5.40) m/uL Hgb (11.4-16.0) gm/dL Hct (34.0-46.0) % MCV (80.0-100.0) fL Chloride (98-107) mmol/L BUN (7-17) mg/dL Creatinine (0.52-1.04) mg/dL Glucose (74-99) mg/dL POC Glucose (mg/dL) 188 H (75-99) mg/dL Magnesium (1.6-2.3) mg/dL Assessment and Plan Plan: Assessment and plan 1. Acute on chronic systolic heart failure. 2. Accelerated hypertension 3. Hyperlipidemia. 4. Chronic kidney disease stage III, stable. 5. Hypertension. 6. Diabetes mellitus type 2 7. Anemia of chronic disease. 8. Gastroesophageal reflux disease and GI prophylaxis. 9. DVT prophylaxis. 10. Recurrent depression. 11. Acute bilateral lower extremity cellulitis. 12. Episodes of severe bradycardia, EKG with Mobitz type I heart block. Metoprolol which was started in the ER has been discontinued. 13. Acute delirium most likely secondary to Ativan withdrawal. Plan Cardiology's perspective, we'll recommend to continue the patient on her current medications. Plans are being made for possible transfer back to [facility]. DNP note has been reviewed, I agree with a documented findings and plan of care. Patient was seen and examined.
--- NOTE | 2018-04-20 14:23 | P.PN ---
Subjective Progress Note Date: 04/20/18 This is an 82-year-old female patient of Dr. Bill and Dr. Diana with past medical history of coronary artery disease status post CABG in 2011 followed by myocardial infarction, diabetes mellitus type 2 insulin requiring, hyperlipidemia, hypertension, cervical stenosis, chronic back pain. She had a hospitalization in June 2017 for acute episode of confusion and disorientation secondary to accelerated hypertension and hypoglycemia. She was also treated for acute kidney injury. She also had a hospitalization in September 2017 which time she presented with chest pain and dobutamine stress echocardiogram was negative for stress-induced ischemia. Patient now presents with lower extremity pain and edema with exertional dyspnea. Patient states her main concern was increased edema to her legs. She states that shortness of breath was not so bad. She does have a chronic scar to the right lower extremity secondary to vein harvesting for CABG. She denies having oxygen at home. She normally uses 2 pillows to sleep. Patient came into [facility] emergency center for evaluation. Chest x-ray shows new small pleural effusions and pulmonary interstitial edema compared to last exam and consistent with mild heart failure. Ultrasound venous Doppler duplex of the lower extremities negative for DVT bilaterally. Initial blood pressure 203/100, white count 6.4, hemoglobin 10.2. Troponin 0.067, creatinine 0.88. ProBNP 9180. Patient received labetalol IV, hydralazine IV, Catapres oral in the ER for blood pressure control. She was started on Lasix 40 mg IV every 12 hours and admitted to the selective care unit and cardiology consult requested. Patient states that she has had increased urine output since she started on IV Lasix. Echocardiogram reveals EF of 40-45% with severe concentric left hypertrophy, LA severely dilated greater than 40, mild aortic valve sclerosis, mild mitral regurgitation, mild tricuspid regurgitation, mild pulmonary hypertension. Patient also had 2 episodes of bradycardia with heart rate less than 20 and the metipranolol started by the ER was discontinued by cardiology. Patient has been asymptomatic. Her heart rate subsequently running in the 30s and 40s. 04/15: Repeat chest x-ray shows cardiomegaly with slight improving vascular prominence. Patient has had ongoing high blood pressure readings and Norvasc was added early this morning. Cardiology is now the patient intensive care unit to place on nitroglycerin drip to titrate for blood pressure. Consult added for Dr. Javed. Patient denies having any headache or blurred vision this morning. She continues to have lower extremity swelling and redness.. 04/16: Patient had episode of hallucination last night where she thought men were in her room. This is most likely related to her hypertension. There is concern for underlying vascular dementia which will be addressed after this acute inpatient visit. Patient states she is feeling much better today. She denies any shortness of breath. Lower extremity edema is improving. 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 EKG revealed Mobitz type I. Patient is currently in a sinus rhythm with first-degree heart block. Patient remains on nitroglycerin drip and is receiving oral antihypertensives. Patient is known to have trouble with many antihypertensive medications including beta blockers. PT and OT are on with plan for subacute rehab at discharge. The patient's and son are at the bedside and all questions have been answered. 04/17: Repeat chest x-ray shows cardiomegaly and improving vascular congestion. Blood pressure 163/54. She is off the nitroglycerin drip and currently on Norvasc, hydralazine, losartan and Lasix. Lasix is 40 mg IV every 12 hours. We 'll add in scheduled Ativan for morning to her already scheduled bedtime. Shortness of breath and lower extremity edema is improved. Erythema to the lower extremities is much improved as well. She denies having a good appetite and is not eating very much. She denies any abdominal pain. She did have a bowel movement. 04/18: The patient remains in intensive care unit. 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 All her medications have been made oral but she did receive IV Vasotec last evening. Patient had another episode of delirium and refused to take her oral medications for blood pressure. Plan is to monitor for the next 2448 hrs. and discharge to [facility] for subacute rehab. 04/19: Patient remains in intensive care unit awaiting a cardiac stepdown unit floor. Patient states she slept well last night. She is eating well and had a bowel movement. Her blood pressure has been stable. Blood pressure this morning was 153/48. Pulse ox is 94% on room air. Heart rate is running in the 60s and 70s. WBC 4.5, hemoglobin 9.9, BUN 28 creatinine 1.15. Capillary blood glucose running between 130s 5 and 171. No issues overnight with hallucinations. Anticipate discharge to [facility] tomorrow. Patient and son are at the bedside and all questions answered. 04/20: Repeat chest x-ray shows overall stable findings, chronic branch mole change in cardiomegaly without new suspicious acute pulmonary process. Patient denies any new complaints. Patient's sister is at the bedside. Blood pressure 144/60, heart rate running in the 60s, pulse ox 95% on room air. WBC 5, hemoglobin 9.7, platelet count 285, sodium 140, potassium 4.2, BUN 30 creatinine 1.3, magnesium 2.4. Cardiology is recommending continuing the current medications. Plan is for patient to be at [facility] for most likely less than 3 weeks. Patient will be transferred to [facility] for subacute rehab under the care of Dr. Bill once insurance authorization is completed. Review of Systems Constitutional: Reports fatigue, Reports weakness, Denies chills, Denies fever, denies poor appetite Eyes: denies blurred vision, denies pain Ears, nose, mouth and throat: Denies headache, Denies sore throat, Denies vertigo Cardiovascular: Reports decreased exercise tolerance, Reports dyspnea on exertion, denies edema, denies leg edema, denies shortness of breath, Denies chest pain, Denies syncope Respiratory: Denies dyspnea, Denies cough, Denies cough with sputum, Denies excessive sputum, Denies hemoptysis, Denies home oxygen, Denies wheezing Gastrointestinal: Denies abdominal pain, Denies diarrhea, Denies nausea, Denies vomiting, reports lack of appetite Genitourinary: Denies dysuria, Denies hematuria, Denies urgency, Denies urinary frequency Musculoskeletal: Denies frequent falls, Denies gait dysfunction, Denies myalgias Integumentary: Denies pruritus, Denies rash, Denies wounds Neurological: Denies change in mentation, Denies change in speech, Denies confusion, Denies convulsions, Denies head injury, Denies headaches, Denies numbness, Denies seizures, Denies weakness Psychiatric: Reports anxiety, Denies depression Endocrine: Denies fatigue, Denies weight change Objective - Vital Signs Vital signs: Vital Signs Temp 97.2 F L 04/20/18 12:00 Pulse 69 04/20/18 12:00 Resp 18 04/20/18 12:00 BP 140/56 04/20/18 12:00 Pulse Ox 96 04/20/18 12:00 Intake & Output 04/19/18 04/20/18 04/20/18 18:59 06:59 18:59 Intake Total 135 Output Total 24 Balance 111 Weight 66.9 kg Intake: IV 15 .9 kvo 15 Oral 120 Output: Urine 24 Other: Voiding Method Indwelling Catheter Toilet # Voids 0 1 - Exam Gen: This is an 83-year-old female. She is resting in bed and appears to be comfortable. Patient's sister is at the bedside. HEENT: Head is atraumatic, normocephalic. Pupils equal, round. Sclerae is anicteric. NECK: Supple. No JVD. No lymphadenopathy. No thyromegaly. LUNGS: Diminished bilaterally. No wheezes or rhonchi. No intercostal retractions. HEART: Regular rate and rhythm. Systolic murmur. ABDOMEN: Soft. Bowel sounds are present. No masses. No tenderness. EXTREMITIES: Erythema and edema to the bilateral lower extremities, improved. Dorsalis pedis +2 bilaterally. NEUROLOGICAL: Patient is awake, alert and oriented x3. Cranial nerves 2 through 12 are grossly intact. - Labs CBC & Chem 7: 04/20/18 06:43 04/20/18 06:43 Labs: Abnormal Lab Results - Last 24 Hours (Table) 04/19/18 04/19/18 04/20/18 Range/Units 17:21 20:53 05:46 RBC (3.80-5.40) m/uL Hgb (11.4-16.0) gm/dL Hct (34.0-46.0) % MCV (80.0-100.0) fL Chloride (98-107) mmol/L BUN (7-17) mg/dL Creatinine (0.52-1.04) mg/dL Glucose (74-99) mg/dL POC Glucose (mg/dL) 185 H 159 H 126 H (75-99) mg/dL Magnesium (1.6-2.3) mg/dL 04/20/18 04/20/18 04/20/18 Range/Units 06:43 06:43 11:29 RBC 3.09 L (3.80-5.40) m/uL Hgb 9.7 L (11.4-16.0) gm/dL Hct 31.4 L (34.0-46.0) % MCV 101.8 H (80.0-100.0) fL Chloride 108 H (98-107) mmol/L BUN 30 H (7-17) mg/dL Creatinine 1.37 H (0.52-1.04) mg/dL Glucose 130 H (74-99) mg/dL POC Glucose (mg/dL) 188 H (75-99) mg/dL Magnesium 2.4 H (1.6-2.3) mg/dL Assessment and Plan Plan: 1. Acute on chronic systolic heart failure. Continue oral Demadex. Monitor I& O and daily weights, electrolytes and kidney function Cardiology consult is appreciated. 2. Accelerated hypertension requiring IV medication in the ER. Continue hydralazine 100 mg 3 times daily, losartan 100 mg daily, Demadex 20 mg daily, Cardura 4 mg daily. Cardiology consult appreciated. 3. Hyperlipidemia. Continue Lipitor 80 mg daily. 4. Chronic kidney disease stage III, stable. 5. Hypertension. Continue losartan, hydralazine, Demadex, Cardura. 6. Diabetes mellitus type 2, insulin requiring. NovoLog scale before meals and at bedtime 7. Anemia of chronic disease. Continue ferrous sulfate 325 mg daily 8. Gastroesophageal reflux disease and GI prophylaxis. Continue omeprazole. 9. DVT prophylaxis. Subcu heparin 10. Recurrent depression. Continue Lexapro 5 mg daily--son states that patient has not been taking his medication although it is on her list. 11. Acute bilateral lower extremity cellulitis. Patient will be started on ceftriaxone, Silvadene wraps. 12. Episodes of severe bradycardia, EKG with Mobitz type I heart block. Metoprolol which was started in the ER has been discontinued. 12. Acute delirium most likely secondary to Ativan withdrawal. Ativan has been resumed at bedtime and in the morning scheduled. Discharge plan: [facility] once authorization is completed. Impression and plan of care have been directed as dictated by the signing physician. Talia Schneider nurse practitioner acting as scribe for signing physician.
[2018-04-20 17:39] LABS: Glucose,Whole Blood 144 mg/dL (75-99)
[2018-04-20] MEDS: ASPIRIN 81 MG PO SCH (20:55)
[2018-04-20 21:03] LABS: Glucose,Whole Blood 200 mg/dL (75-99)
[2018-04-21 06:14] LABS: Glucose,Whole Blood 152 mg/dL (75-99)
[2018-04-21] MEDS: INSULIN ASPART 100 UNIT/ML 1 ML 10 ML VIAL SQ SCH ×3 (06:40→17:35)
--- NOTE | 2018-04-21 10:13 | P.PN ---
Subjective Progress Note Date: 04/21/18 This is an 83-year-old female, who follows with Dr. Diana in the office. She has a known history of coronary artery disease with prior bypass surgery in 2011, diabetes, hyperlipidemia, hypertension, chronic back pain. Patient had most recently been in the hospital in September 2017 with symptoms of chest discomfort, she underwent a dobutamine stress echocardiographic study at that time that was negative for any reversible ischemia. She presented to the hospital on this occasion with symptoms of lower extremity pain and edema with exertional dyspnea. Cardiology consultation was initially requested because of elevated blood pressures. Ultrasound of the lower extremities was performed which was negative for DVT. Echocardiogram with Doppler study revealed an ejection fraction of 40-45% with severe concentric LVH, LA severely dilated, mild aortic valve sclerosis, mild MR , mild TR and mild pulmonary hypertension. Patient today was transferred to the stepdown unit, overall slept well last night. Blood pressure remaining stable. This morning's blood pressure 152/48, heart rate in the 70s. White blood cell count 4.5, hemoglobin 9.9, BUN 28 and creatinine 1.1. The plan is for the patient to be discharged back to [facility] tomorrow. 04/20/2018 Patient was seen and examined this morning, overall doing well. Anticipating transferred back to [facility] today. Blood pressure 144/60, heart rate in the 60s , 95% on room air. White blood cell count 5.0, hemoglobin 9.7, platelet count 285. Sodium 140, potassium 4.2, BUN 30, creatinine 1.3. Magnesium 2.4. 04/21/2017 Patient seen and examined this morning, overall doing well. Anticipating transferred back to [facility] today. Hemodynamically stable. Objective - Vital Signs Vital signs: Vital Signs Temp 97.5 F L 04/21/18 04:00 Pulse 63 04/21/18 04:00 Resp 16 04/21/18 04:00 BP 146/54 04/21/18 04:00 Pulse Ox 96 04/21/18 04:00 Intake & Output 04/20/18 04/21/18 04/21/18 18:59 06:59 18:59 Intake Total 120 240 Balance 120 240 Weight 69.8 kg Intake: Oral 120 240 Other: Voiding Method Toilet - Exam Gen: This is an 83-year-old female. She is resting in ICU bed and appears to be comfortable. Patient's and son are at the bedside. HEENT: Head is atraumatic, normocephalic. Pupils equal, round. Sclerae is anicteric. NECK: Supple. No JVD. No lymphadenopathy. No thyromegaly. LUNGS: Diminished bilaterally. No wheezes or rhonchi. No intercostal retractions. HEART: Regular rate and rhythm. Systolic murmur. ABDOMEN: Soft. Bowel sounds are present. No masses. No tenderness. EXTREMITIES: Erythema and edema to the bilateral lower extremities, improving. Dorsalis pedis +2 bilaterally. NEUROLOGICAL: Patient is awake, alert and oriented x3. Cranial nerves 2 through 12 are grossly intact. - Labs CBC & Chem 7: 04/20/18 06:43 04/20/18 06:43 Labs: Abnormal Lab Results - Last 24 Hours (Table) 04/20/18 04/20/18 04/20/18 Range/Units 11:29 17:38 21:01 POC Glucose (mg/dL) 188 H 144 H 200 H (75-99) mg/dL 04/21/18 Range/Units 06:13 POC Glucose (mg/dL) 152 H (75-99) mg/dL Assessment and Plan Plan: Assessment and plan 1. Acute on chronic systolic heart failure. 2. Accelerated hypertension 3. Hyperlipidemia. 4. Chronic kidney disease stage III, stable. 5. Hypertension. 6. Diabetes mellitus type 2 7. Anemia of chronic disease. 8. Gastroesophageal reflux disease and GI prophylaxis. 9. DVT prophylaxis. 10. Recurrent depression. 11. Acute bilateral lower extremity cellulitis. 12. Episodes of severe bradycardia, EKG with Mobitz type I heart block. Metoprolol which was started in the ER has been discontinued. 13. Acute delirium most likely secondary to Ativan withdrawal. Plan Cardiology's perspective, we'll recommend to continue the patient on her current medications. Plans are being made for possible transfer back to [facility]. DNP note has been reviewed, I agree with a documented findings and plan of care. Patient was seen and examined.
[2018-04-21] MEDS: CHOLECALCIFEROL 1,000 UNIT TAB PO SCH (10:53)
[2018-04-21] MEDS: FERROUS SULFATE 325 MG TAB PO SCH (10:54)
[2018-04-21] MEDS: DOXAZOSIN 4 MG TAB PO SCH (10:54)
[2018-04-21] MEDS: hydrALAZINE HCL 50 MG TAB PO SCH ×2 (10:54→17:13)
[2018-04-21] MEDS: LORazepam 1 MG TAB PO SCH (10:55)
[2018-04-21] MEDS: NIFEdipine XL 90 MG TAB.ER.24 PO SCH (10:56)
[2018-04-21] MEDS: LOSARTAN 50 MG TAB PO SCH (10:56)
[2018-04-21] MEDS: POTASSIUM CHLORIDE ER 20 MEQ TAB.ER PO SCH (10:57)
[2018-04-21] MEDS: ENOXAPARIN 30 MG/0.3 ML SYRINGE SQ SCH (10:59)
[2018-04-21 11:35] VITALS: BMI 28.1
[2018-04-21 12:02] LABS: Glucose,Whole Blood 169 mg/dL (75-99)
[2018-04-21] MEDS: ATORVASTATIN 80 MG TAB PO SCH (12:40)
[2018-04-21] MEDS: CYANOCOBALAMIN 500 MCG TAB PO SCH (12:40)
[2018-04-21] MEDS: ALLOPURINOL 100 MG TAB PO SCH (12:40)
[2018-04-21] MEDS: TORSEMIDE 20 MG TAB PO SCH (12:40)
[2018-04-21] MEDS: ASCORBIC ACID 500 MG TAB PO SCH (12:40)
[2018-04-21 13:40] VITALS: BP 146/54; TEMP 97.7
[2018-04-21 17:05] LABS: Glucose,Whole Blood 148 mg/dL (75-99)
[2018-04-21 17:56] VITALS: PULSE 69; RESP 16
== END 2018-04-21 18:21 | DRG 291 ==
LOC: EC 14:16 → 3SCARD 17:48 → 2ORMAIN 04-14 09:15 → 3SCARD 04-14 12:19 → 2SICU 04-15 08:16 → 3SCARD 04-19 11:45
PROVIDERS: ADMIT Internal Medicine; ATTEND Internal Medicine
DX: I13.0 Hypertensive heart and chronic kidney disease with heart failure and stage 1 through stage 4 chronic kidney disease, or unspecified chronic kidney disease (principal); I50.23 Acute on chronic systolic (congestive) heart failure; F13.239 Sedative, hypnotic or anxiolytic dependence with withdrawal, unspecified; F33.9 Major depressive disorder, recurrent, unspecified; I16.1 Hypertensive emergency; L03.115 Cellulitis of right lower limb; L03.116 Cellulitis of left lower limb; D63.8 Anemia in other chronic diseases classified elsewhere; E11.22 Type 2 diabetes mellitus with diabetic chronic kidney disease; E78.00 Pure hypercholesterolemia, unspecified; E78.5 Hyperlipidemia, unspecified; I08.3 Combined rheumatic disorders of mitral, aortic and tricuspid valves; I25.10 Atherosclerotic heart disease of native coronary artery without angina pectoris; I25.2 Old myocardial infarction; I27.20 Pulmonary hypertension, unspecified; I42.2 Other hypertrophic cardiomyopathy; I44.1 Atrioventricular block, second degree; K21.9 Gastro-esophageal reflux disease without esophagitis; N18.3 Chronic kidney disease, stage 3 (moderate); Z79.4 Long term (current) use of insulin; Z79.899 Other long term (current) drug therapy; Z80.3 Family history of malignant neoplasm of breast; Z82.49 Family history of ischemic heart disease and other diseases of the circulatory system; Z83.3 Family history of diabetes mellitus; Z90.710 Acquired absence of both cervix and uterus; Z95.1 Presence of aortocoronary bypass graft; Z90.49 Acquired absence of other specified parts of digestive tract; M19.90 Unspecified osteoarthritis, unspecified site; G89.29 Other chronic pain; M48.02 Spinal stenosis, cervical region; Z79.82 Long term (current) use of aspirin; Z51.81 Encounter for therapeutic drug level monitoring; Z88.5 Allergy status to narcotic agent; Z88.0 Allergy status to penicillin; Z88.8 Allergy status to other drugs, medicaments and biological substances
CPT/HCPCS: 36415; 71045; 71046; 80048; 80053; 81001; 82550; 82553; 83036; 83735; 83880; 84100; 84132; 84484; 85025; 85027; 85610; 93005; 93306; 93970; 96372; 96374; 96375; 96376; 99285

== ENCOUNTER 2018-12-10 16:17 | Inpatient (IN) | payer MEDICARE ==
[2018-12-10 16:52] VITALS: RESP 18
[2018-12-10] MEDS ORDERED: SODIUM CHLORIDE 0.9% 1,000 ML IV STA (17:12)
[2018-12-10] MEDS ORDERED: SODIUM CHLORIDE 0.9% 500 ML 500 ML IV STA (17:12)
--- NOTE | 2018-12-10 17:17 | ED ---
Weakness HPI - General Chief complaint: Weakness Stated complaint: Weakness Time Seen by Provider: 12/10/18 16:17 Source: patient, EMS, RN notes reviewed Mode of arrival: wheelchair Limitations: no limitations - History of Present Illness Initial comments: This 83-year-old female history of heart disease history of hypertension CHF in the past who states she had the onset last evening of weakness no fevers chills she did have 1 episode nausea vomiting swelling no sweats no overt dysuria though she does have a patch on appropriate with urination to shows has trouble with that she states. No diarrhea no other modifying factors she does complain however on further questioning of some left knee pain. She felt like her legs were just not able to hold her up. She also states she did have some neck and back pain which is chronic for her. MD Complaint: generalized weakness - Related Data Home Medications Medication Instructions Recorded Confirmed Allopurinol 100 mg PO DAILY@0800 03/05/14 12/10/18 Aspirin 162 mg PO DAILY@0800 03/05/14 12/10/18 Omeprazole 40 mg PO 03/05/14 12/10/18 Ascorbic Acid [Vitamin C] 500 mg PO DAILY@0800 09/24/14 12/10/18 Atorvastatin [Lipitor] 80 mg PO HS 09/24/14 12/10/18 Cholecalciferol [Vitamin D3 (25 2,000 unit PO HS 09/24/14 12/10/18 Mcg = 1000 Iu)] Ferrous Sulfate [Feosol] 325 mg PO HS 09/24/14 12/10/18 Nitroglycerin 0.2MG/Hr Patch 1 patch TRANSDERM Q24H PRN 09/24/14 12/10/18 [Nitro-Dur 0.2MG/Hr Patch] hydrALAZINE HCL [Apresoline] 100 mg PO TID 07/04/17 12/10/18 Cyanocobalamin [Vitamin B-12] 500 mcg PO HS 04/13/18 12/10/18 Insulin NPL/Insulin Lispro 15 unit SQ AC-TID 04/13/18 12/10/18 [humaLOG MIX 75-25 VIAL] Ubidecarenone [Co Q-10] 100 mg PO HS 04/13/18 12/10/18 Aria Green Barley 3 tab PO BID 12/10/18 12/10/18 Doxazosin [Cardura] 4 mg PO DAILY@79912/10/18 12/10/18 Furosemide [Lasix] 40 mg PO DAILY@79912/10/18 12/10/18 Losartan Potassium 100 mg PO DAILY@79912/10/18 12/10/18 NIFEdipine XL [Procardia XL] 90 mg PO DAILY@79912/10/18 12/10/18 Potassium Chloride [Klor-Con 20] 20 meq PO MOWEFR@2100 12/10/18 12/10/18 Torsemide [Demadex] 20 mg PO DAILY@79912/10/18 12/10/18 Previous Rx's Medication Instructions Recorded LORazepam [Ativan] 1 mg PO BID #6 tab 04/20/18 Allergies Allergy/AdvReac Type Severity Reaction Status Date / Time cortisone Allergy Rash/Hives Verified 12/10/18 16:59 morphine Allergy Unknown Verified 12/10/18 16:59 Penicillins Allergy Rash/Hives Verified 12/10/18 16:59 Review of Systems ROS Statement: Those systems with pertinent positive or pertinent negative responses have been documented in the HPI. ROS Other: All systems not noted in ROS Statement are negative. Past Medical History Past Medical History: Coronary Artery Disease (CAD), Heart Failure, Diabetes Mellitus, GERD/Reflux, Hyperlipidemia, Hypertension, Myocardial Infarction (NE), Osteoarthritis (OA), Pneumonia Additional Past Medical History / Comment(s): Hx Mitral regurgitation, anemia, reproductive problems when younger., NECK PAIN. Last Myocardial Infarction Date:: 08/2014 History of Any Multi-Drug Resistant Organisms: None Reported Past Surgical History: Cholecystectomy, Coronary Bypass/CABG, Hysterectomy Additional Past Surgical History / Comment(s): 8x D&C, CABG 7 Blockages, bilateral foot surgery to remove tumors Past Anesthesia/Blood Transfusion Reactions: No Reported Reaction Past Psychological History: No Psychological Hx Reported Smoking Status: Never smoker Past Alcohol Use History: Occasional Past Drug Use History: None Reported - Past Family History Mother Family Medical History: Cancer, Diabetes Mellitus Additional Family Medical History / Comment(s): Mother had breast cancer. Father Family Medical History: Congestive Heart Failure (CHF) Brother(s) Family Medical History: Cancer (Patient is lives with her , functionally active denies any need a walker or assistance) General Exam - General Exam Comments Initial Comments: This is a well-developed well-nourished awake alert oriented 3 female Limitations: no limitations General appearance: alert, in no apparent distress Head exam: Present: atraumatic, normocephalic, normal inspection Eye exam: Present: normal appearance, PERRL, EOMI. Absent: scleral icterus, conjunctival injection, periorbital swelling ENT exam: Present: mucous membranes dry Neck exam: Present: normal inspection. Absent: tenderness, meningismus, lymphadenopathy Respiratory exam: Present: normal lung sounds bilaterally. Absent: respiratory distress, wheezes, rales, rhonchi, stridor Cardiovascular Exam: Present: regular rate, normal rhythm, normal heart sounds. Absent: systolic murmur, diastolic murmur, rubs, gallop, clicks GI/Abdominal exam: Present: soft, normal bowel sounds. Absent: distended, tenderness, guarding, rebound, rigid Extremities exam: Present: normal inspection, full ROM, tenderness (Tenderness palpation of the medial and lateral aspects of the knee no step-off or crepitation), normal capillary refill. Absent: pedal edema, joint swelling, calf tenderness Back exam: Present: normal inspection Neurological exam: Present: alert, oriented X3, CN II-XII intact Psychiatric exam: Present: normal affect, normal mood Skin exam: Present: warm, dry, intact, normal color. Absent: rash Course Vital Signs 12/10/18 12/10/18 12/10/18 16:19 18:07 19:18 Temperature 99.6 F 98.7 F Pulse Rate 63 58 L 63 Respiratory 18 18 18 Rate Blood Pressure 149/51 163/69 157/69 O2 Sat by Pulse 97 94 L 95 Oximetry 12/10/18 21:17 Temperature Pulse Rate 57 L Respiratory 18 Rate Blood Pressure 167/58 O2 Sat by Pulse 96 Oximetry EKG Findings - EKG Results: EKG: interpreted by ERMD (Rate of 61 with a sinus rhythm of first-degree AV block [place] interval 268 QRS 112 QT since QTC 480/[address] configuration's) Medical Decision Making - Medical Decision Making Patient did demonstrate elevated troponin. No chest pain reported no palpitations. I did discuss the case with Dr. Amaral patient will be admitted - Lab Data Result diagrams: 12/10/18 17:22 12/10/18 17:22 Lab Results 12/10/18 12/10/18 12/10/18 Range/Units 17:22 17:22 17:22 WBC 8.6 (3.8-10.6) k/uL RBC 2.67 L (3.80-5.40) m/uL Hgb 8.8 L (11.4-16.0) gm/dL Hct 26.6 L (34.0-46.0) % MCV 99.6 (80.0-100.0) fL MCH 33.0 (25.0-35.0) pg MCHC 33.2 (31.0-37.0) g/dL RDW 15.1 (11.5-15.5) % Plt Count 214 (150-450) k/uL Neutrophils % 80 % Lymphocytes % 12 % Monocytes % 6 % Eosinophils % 1 % Basophils % 0 % Neutrophils # 6.9 (1.3-7.7) k/uL Lymphocytes # 1.0 (1.0-4.8) k/uL Monocytes # 0.5 (0-1.0) k/uL Eosinophils # 0.1 (0-0.7) k/uL Basophils # 0.0 (0-0.2) k/uL Macrocytosis Slight Sodium 141 (137-145) mmol/L Potassium 3.7 (3.5-5.1) mmol/L Chloride 110 H (98-107) mmol/L Carbon Dioxide 24 (22-30) mmol/L Anion Gap 7 mmol/L BUN 47 H (7-17) mg/dL Creatinine 1.47 H (0.52-1.04) mg/dL Est GFR (CKD-EPI)AfAm 38 (>60 ml/min/1.73 sqM) Est GFR (CKD-EPI)NonAf 33 (>60 ml/min/1.73 sqM) Glucose 139 H (74-99) mg/dL Calcium 9.2 (8.4-10.2) mg/dL Magnesium 2.2 (1.6-2.3) mg/dL Total Bilirubin 0.6 (0.2-1.3) mg/dL AST 20 (14-36) U/L ALT 16 (9-52) U/L Alkaline Phosphatase 56 (38-126) U/L Creatine Kinase 51 (30-135) U/L Troponin I 0.060 H* (0.000-0.034) ng/mL Total Protein 5.5 L (6.3-8.2) g/dL Albumin 3.1 L (3.5-5.0) g/dL Urine Color Urine Appearance (Clear) Urine pH (5.0-8.0) Ur Specific [place] (1.001-1.035) Urine Protein (Negative) Urine Glucose (UA) (Negative) Urine Ketones (Negative) Urine Blood (Negative) Urine Nitrite (Negative) Urine Bilirubin (Negative) Urine Urobilinogen (<2.0) mg/dL Ur Leukocyte Esterase (Negative) Urine RBC (0-5) /hpf Urine WBC (0-5) /hpf Ur Squamous Epith Cells (0-4) /hpf Urine Bacteria (None) /hpf Hyaline Casts (0-2) /lpf Urine Mucus (None) /hpf 12/10/18 Range/Units 17:22 WBC (3.8-10.6) k/uL RBC (3.80-5.40) m/uL Hgb (11.4-16.0) gm/dL Hct (34.0-46.0) % MCV (80.0-100.0) fL MCH (25.0-35.0) pg MCHC (31.0-37.0) g/dL RDW (11.5-15.5) % Plt Count (150-450) k/uL Neutrophils % % Lymphocytes % % Monocytes % % Eosinophils % % Basophils % % Neutrophils # (1.3-7.7) k/uL Lymphocytes # (1.0-4.8) k/uL Monocytes # (0-1.0) k/uL Eosinophils # (0-0.7) k/uL Basophils # (0-0.2) k/uL Macrocytosis Sodium (137-145) mmol/L Potassium (3.5-5.1) mmol/L Chloride (98-107) mmol/L Carbon Dioxide (22-30) mmol/L Anion Gap mmol/L BUN (7-17) mg/dL Creatinine (0.52-1.04) mg/dL Est GFR (CKD-EPI)AfAm (>60 ml/min/1.73 sqM) Est GFR (CKD-EPI)NonAf (>60 ml/min/1.73 sqM) Glucose (74-99) mg/dL Calcium (8.4-10.2) mg/dL Magnesium (1.6-2.3) mg/dL Total Bilirubin (0.2-1.3) mg/dL AST (14-36) U/L ALT (9-52) U/L Alkaline Phosphatase (38-126) U/L Creatine Kinase (30-135) U/L Troponin I (0.000-0.034) ng/mL Total Protein (6.3-8.2) g/dL Albumin (3.5-5.0) g/dL Urine Color Light Yellow Urine Appearance Clear (Clear) Urine pH 5.0 (5.0-8.0) Ur Specific [place] 1.007 (1.001-1.035) Urine Protein Negative (Negative) Urine Glucose (UA) Negative (Negative) Urine Ketones Negative (Negative) Urine Blood Negative (Negative) Urine Nitrite Negative (Negative) Urine Bilirubin Negative (Negative) Urine Urobilinogen <2.0 (<2.0) mg/dL Ur Leukocyte Esterase Trace H (Negative) Urine RBC 1 (0-5) /hpf Urine WBC 9 H (0-5) /hpf Ur Squamous Epith Cells 1 (0-4) /hpf Urine Bacteria Moderate H (None) /hpf Hyaline Casts 32 H (0-2) /lpf Urine Mucus Rare H (None) /hpf - Radiology Data Radiology results: report reviewed (Review the imaging shows no acute findings.), image reviewed Disposition Clinical Impression: Weakness, Elevated troponin Disposition: ADMITTED IP TO THIS [facility] Condition: Fair Referrals: Leela Bill MD [Primary Care Provider] - 1-2 days
[2018-12-10 17:30] LABS: Basophils % (A) 0 %; Eosinophils # (A) 0.1 k/uL (0-0.7); Eosinophils % (A) 1 %; HCT 26.6 % (34.0-46.0); HGB 8.8 gm/dL (11.4-16.0); Lymphocytes % (A) 12 %; MCHC 33.2 g/dL (31.0-37.0); MCV 99.6 fL (80.0-100.0); Macrocytosis Slight; Mean Platelet Volume 8.5; Monocytes # (A) 0.5 k/uL (0-1.0); Monocytes % (A) 6 %; Neutrophils # (A) 6.9 k/uL (1.3-7.7); Neutrophils % (A) 80 %; Platelet Count 214 k/uL (150-450); RBC 2.67 m/uL (3.80-5.40); RDW 15.1 % (11.5-15.5); WBC 8.6 k/uL (3.8-10.6)
[2018-12-10 17:33] LABS: Appearance,Urine Clear (Clear); Bacteria,Urine Moderate /hpf; Bilirubin,Urine Negative (Negative); Blood,Urine Negative (Negative); Color,Urine Light Yellow; Glucose,Urine (UA) Negative (Negative); Hyaline Casts,Urine 32 /lpf (0-2); Ketones,Urine Negative (Negative); Leukocyte Esterase,Urine Trace (Negative); Mucus,Urine Rare /hpf; Nitrite,Urine Negative (Negative); Protein,Urine Negative (Negative); RBC,Urine 1 /hpf (0-5); Specific Gravity,Urine 1.007 (1.001-1.035); Squamous Epithelial Cell,Urine 1 /hpf (0-4); Urobilinogen,Urine <2.0 mg/dL (<2.0)
[2018-12-10 17:47] LABS: Albumin 3.1 g/dL (3.5-5.0); Calcium 9.2 mg/dL (8.4-10.2); Magnesium 2.2 mg/dL (1.6-2.3); Potassium 3.7 mmol/L (3.5-5.1); Total Bilirubin 0.6 mg/dL (0.2-1.3); Total Protein 5.5 g/dL (6.3-8.2)
--- NOTE | 2018-12-10 21:51 | XR ---
EXAMINATION TYPE: XR chest 2V DATE OF EXAM: 12/10/2018 COMPARISON: Chest radiograph 04/20/2018 HISTORY: Weakness TECHNIQUE: Frontal and lateral views of the chest are obtained. FINDINGS: Enlarged cardiac silhouette, stable. Mild pulmonary vascular congestion. Aortic vascular calcificatio ns. Mediastinal postsurgical changes with sternal wires and mediastinal clips. No focal airspace opac ity. Blunting of the costophrenic angles from small pleural effusions or atelectasis. IMPRESSION: 1. Mild pulmonary vascular congestion. 2. Small pleural effusions and/or atelectasis.
[2018-12-10] MEDS ORDERED: NALOXONE 0.4 MG/ML 1 ML VIAL IV PRN (21:52)
[2018-12-10] MEDS ORDERED: NITROGLYCERIN 0.2MG/HR PATCH TRANSDERM PRN ×2 (21:56→22:01)
[2018-12-10 23:20] VITALS: BMI 30.1
[2018-12-10 23:27] LABS: Glucose,Whole Blood 184 mg/dL (75-99)
[2018-12-11] MEDS: HEPARIN SOD,PORK IN 0.45% NACL 25,000 UNIT in 0.45% NACL 1 250ML.BAG IV SCH ×2 (01:04→23:29)
[2018-12-11] MEDS: hydrALAZINE HCL 50 MG TAB PO SCH ×4 (01:10→21:15)
[2018-12-11] MEDS: LORazepam 1 MG TAB PO SCH ×2 (05:03→19:36)
[2018-12-11] MEDS ORDERED: ACETAMINOPHEN TAB 325 MG TAB PO PRN (05:07)
[2018-12-11 06:52] LABS: Glucose,Whole Blood 151 mg/dL (75-99)
[2018-12-11] MEDS: LOSARTAN 50 MG TAB PO SCH (09:22)
[2018-12-11] MEDS: TORSEMIDE 20 MG TAB PO SCH (09:23)
[2018-12-11] MEDS: ASPIRIN 81 MG PO SCH (09:23)
[2018-12-11] MEDS: DOXAZOSIN 4 MG TAB PO SCH (09:23)
[2018-12-11] MEDS: ASCORBIC ACID 500 MG TAB PO SCH (09:23)
[2018-12-11] MEDS: ALLOPURINOL 100 MG TAB PO SCH (09:23)
[2018-12-11] MEDS: NIFEdipine XL 90 MG TAB.ER.24 PO SCH (09:23)
--- NOTE | 2018-12-11 10:41 | P.HPIM ---
History of Present Illness H&P Date: 12/11/18 Chief Complaint: Weakness This is an 83-year-old female patient of Dr. Bill and Dr. Diana with past medical history of coronary artery disease status post CABG in 2011 followed by myocardial infarction, chronic systolic heart failure, chronic kidney disease stage III, diabetes mellitus type 2 insulin requiring, hyperlipidemia, hypertension, cervical stenosis, chronic back pain. She had a hospitalization in June 2017 for acute episode of confusion and disorientation secondary to accelerated hypertension and hypoglycemia. She was also treated for acute kidney injury. She also had a hospitalization in September 2017 which time she presented with chest pain and dobutamine stress echocardiogram was negative for stress-induced ischemia. Most recently, patient was admitted April 2018 and was treated for acute on chronic systolic heart failure, hypertensive emergency and patient was discharged to [facility] for subacute rehab. Patient complains of of vomiting yesterday morning, not eating. No abdominal pain no chest pain no shortness of breath. She complains of generalized weakness especially in the lower extremities and unable to walk. The weakness has been going on for most of 2 months. Patient normally ambulates with a walker and her is next to her. Her states that she drags her feet and is a little bit tipsy. She may fall slightly to the right. Patient last saw Dr. Diana 2 months ago and at that time she was not having any concerns. She denies any medication changes. Previous echocardiogram reveals EF of 40-45% with severe concentric left hypertrophy, LA severely dilated greater than 40, mild aortic valve sclerosis, mild mitral regurgitation, mild tricuspid regurgitation, mild pulmonary hypertension. Patient came into [facility] emergency center for evaluation. She was found to be afebrile, heart rate in the 60s, blood pressure 149/51, pulse ox 97% on room air. EKG was a sinus rhythm with first-degree heart block and nonspecific ST changes. Her initial troponin was slightly elevated at 0.060 and repeat 0.070. BUN 47 creatinine 1.47, hemoglobin 8.8, blood sugar 139. Urinalysis was leukoesterase trace, bacteria moderate, WBCs 9 positive hyalin cast. Chest x-ray showed mild pulmonary vascular congestion. Small pleural effusions and/or atelectasis. Patient was started on a heparin drip and admitted to the cardiac stepdown unit. Cardiology consult in place. Incentive spirometry, PT and OT added. Review of Systems Constitutional: Reports fatigue, Reports weakness, Denies anorexia, Denies chills, Denies fever, Denies poor appetite, Denies weight loss Ears, nose, mouth and throat: Denies dysphagia, Denies nasal congestion, Denies nasal discharge, Denies vertigo Cardiovascular: Denies chest pain, Denies decreased exercise tolerance, Denies dyspnea on exertion, Denies edema, Denies leg edema, Denies lightheadedness, Denies palpitations, Denies syncope Respiratory: Denies cough, Denies cough with sputum, Denies dyspnea, Denies excessive sputum, Denies hemoptysis, Denies home oxygen, Denies wheezing Gastrointestinal: Reports nausea, Reports vomiting, Denies abdominal pain, Denies diarrhea, Denies loss of appetite Genitourinary: Denies dysuria, Denies urgency, Denies urinary frequency Musculoskeletal: Reports gait dysfunction, Reports muscle weakness, Denies frequent falls, Denies myalgias Integumentary: Denies pruritus, Denies rash, Denies wounds Neurological: Reports gait dysfunction, Reports weakness, Denies burning pain, Denies change in speech, Denies paresthesias, Denies syncope Psychiatric: Denies anxiety, Denies depression Endocrine: Denies fatigue, Denies weight change Past Medical History Past Medical History: Coronary Artery Disease (CAD), Heart Failure, Diabetes Mellitus, GERD/Reflux, Hyperlipidemia, Hypertension, Myocardial Infarction (DC), Osteoarthritis (OA), Pneumonia Additional Past Medical History / Comment(s): Hx Mitral regurgitation, anemia, reproductive problems when younger., NECK PAIN. Last Myocardial Infarction Date:: 08/2014 History of Any Multi-Drug Resistant Organisms: None Reported Past Surgical History: Cholecystectomy, Coronary Bypass/CABG, Hysterectomy Additional Past Surgical History / Comment(s): 8x D&C, CABG 7 Blockages, bilateral foot surgery to remove tumors Past Anesthesia/Blood Transfusion Reactions: No Reported Reaction Past Psychological History: No Psychological Hx Reported Additional Psychological History / Comment(s): Pt resides with her spouse. She is independent. She uses a walker for ambulation. Smoking Status: Never smoker Past Alcohol Use History: Occasional Additional Past Alcohol Use History / Comment(s): Patient is and lives with her . Past Drug Use History: None Reported - Past Family History Mother Family Medical History: Cancer, Diabetes Mellitus Additional Family Medical History / Comment(s): Mother had breast cancer. Father Family Medical History: Congestive Heart Failure (CHF) Brother(s) Family Medical History: Cancer (Patient is lives with her , functionally active denies any need a walker or assistance) Medications and Allergies Home Medications Medication Instructions Recorded Confirmed Type Allopurinol 100 mg PO DAILY@79903/05/14 12/10/18 History Aspirin 162 mg PO DAILY@79903/05/14 12/10/18 History Omeprazole 40 mg PO HS 03/05/14 12/10/18 History Ascorbic Acid [Vitamin C] 500 mg PO DAILY@79909/24/14 12/10/18 History Atorvastatin [Lipitor] 80 mg PO HS 09/24/14 12/10/18 History Cholecalciferol [Vitamin D3 (25 2,000 unit PO HS 09/24/14 12/10/18 History Mcg = 1000 Iu)] Ferrous Sulfate [Feosol] 325 mg PO HS 09/24/14 12/10/18 History Nitroglycerin 0.2MG/Hr Patch 1 patch TRANSDERM Q24H PRN 09/24/14 12/10/18 History [Nitro-Dur 0.2MG/Hr Patch] hydrALAZINE HCL [Apresoline] 100 mg PO TID 07/04/17 12/10/18 History Cyanocobalamin [Vitamin B-12] 500 mcg PO HS 04/13/18 12/10/18 History Insulin NPL/Insulin Lispro 15 unit SQ AC-TID 04/13/18 12/10/18 History [humaLOG MIX 75-25 VIAL] Ubidecarenone [Co Q-10] 100 mg PO HS 04/13/18 12/10/18 History LORazepam [Ativan] 1 mg PO BID #6 tab 04/20/18 12/10/18 Rx Aria Green Barley 3 tab PO BID 12/10/18 12/10/18 History Doxazosin [Cardura] 4 mg PO DAILY@79912/10/18 12/10/18 History Furosemide [Lasix] 40 mg PO DAILY@79912/10/18 12/10/18 History Losartan Potassium 100 mg PO DAILY@79912/10/18 12/10/18 History NIFEdipine XL [Procardia XL] 90 mg PO DAILY@0800 12/10/18 12/10/18 History Potassium Chloride [Klor-Con 20] 20 meq PO MOWEFR@2100 12/10/18 12/10/18 History Torsemide [Demadex] 20 mg PO DAILY@0800 12/10/18 12/10/18 History Allergies Allergy/AdvReac Type Severity Reaction Status Date / Time cortisone Allergy Rash/Hives Verified 12/10/18 16:59 morphine Allergy Unknown Verified 12/10/18 16:59 Penicillins Allergy Rash/Hives Verified 12/10/18 16:59 Physical Exam Vitals: Vital Signs Temp Pulse Pulse Resp BP BP Pulse Ox 12/11/18 02:28 97.8 F 72 18 181/78 96 12/10/18 23:59 97.6 F 64 17 131/60 95 12/10/18 22:26 99 F 57 L 18 157/59 95 12/10/18 22:18 98.3 F 58 L 18 162/69 96 12/10/18 21:17 57 L 18 167/58 96 12/10/18 19:18 63 18 157/69 95 12/10/18 18:07 98.7 F 58 L 18 163/69 94 L 12/10/18 16:19 99.6 F 63 18 149/51 97 Intake and Output 12/10/18 12/11/18 12/11/18 22:59 06:59 14:59 Intake Total 150 150 Output Total 500 Balance 150 -350 Intake: Intake, IV Titration 150 150 Amount Sodium Chloride 0.9% 1, 150 150 000 ml @ 75 mls/hr IV . [id number] STA Rx#:[id number] Output: Urine 500 Other: # Voids 1 Weight 68.039 kg 70 kg Gen: This is an 83-year-old female. She is resting in bed and appears to be comfortable in no acute distress. HEENT: Head is atraumatic, normocephalic. Pupils equal, round. Sclerae is anicteric. NECK: Supple. No JVD. No lymphadenopathy. No thyromegaly. LUNGS: Clear to auscultation. No wheezes or rhonchi. No intercostal retractions. HEART: Regular rate and rhythm. Systolic murmur at apex. ABDOMEN: Soft. Bowel sounds are present. No masses. No tenderness. EXTREMITIES: No pedal edema. Dorsalis pedis +2 bilaterally. NEUROLOGICAL: Patient is awake, alert and oriented x3. Cranial nerves 2 through 12 are grossly intact. Normal finger to nose, strength is equal to upper and lower extremities. Positive bilateral touch sensation. No numbness or tingling. Results CBC & Chem 7: 12/10/18 17:22 12/10/18 17:22 Labs: Abnormal Lab Results - Last 24 Hours (Table) 12/10/18 12/10/18 12/10/18 Range/Units 17:22 17:22 17:22 RBC 2.67 L (3.80-5.40) m/uL Hgb 8.8 L (11.4-16.0) gm/dL Hct 26.6 L (34.0-46.0) % APTT (22.0-30.0) sec Chloride 110 H (98-107) mmol/L BUN 47 H (7-17) mg/dL Creatinine 1.47 H (0.52-1.04) mg/dL Glucose 139 H (74-99) mg/dL POC Glucose (mg/dL) (75-99) mg/dL Troponin I 0.060 H* (0.000-0.034) ng/mL Total Protein 5.5 L (6.3-8.2) g/dL Albumin 3.1 L (3.5-5.0) g/dL Lipase (23-300) U/L Ur Leukocyte Esterase (Negative) Urine WBC (0-5) /hpf Urine Bacteria (None) /hpf Hyaline Casts (0-2) /lpf Urine Mucus (None) /hpf 12/10/18 12/10/18 12/10/18 Range/Units 17:22 22:22 22:22 RBC (3.80-5.40) m/uL Hgb (11.4-16.0) gm/dL Hct (34.0-46.0) % APTT (22.0-30.0) sec Chloride (98-107) mmol/L BUN (7-17) mg/dL Creatinine (0.52-1.04) mg/dL Glucose (74-99) mg/dL POC Glucose (mg/dL) (75-99) mg/dL Troponin I 0.070 H* (0.000-0.034) ng/mL Total Protein (6.3-8.2) g/dL Albumin (3.5-5.0) g/dL Lipase 11 L (23-300) U/L Ur Leukocyte Esterase Trace H (Negative) Urine WBC 9 H (0-5) /hpf Urine Bacteria Moderate H (None) /hpf Hyaline Casts 32 H (0-2) /lpf Urine Mucus Rare H (None) /hpf 12/10/18 12/11/18 12/11/18 Range/Units 23:15 05:58 06:32 RBC (3.80-5.40) m/uL Hgb (11.4-16.0) gm/dL Hct (34.0-46.0) % APTT 33.8 H (22.0-30.0) sec Chloride (98-107) mmol/L BUN (7-17) mg/dL Creatinine (0.52-1.04) mg/dL Glucose (74-99) mg/dL POC Glucose (mg/dL) 184 H 151 H (75-99) mg/dL Troponin I (0.000-0.034) ng/mL Total Protein (6.3-8.2) g/dL Albumin (3.5-5.0) g/dL Lipase (23-300) U/L Ur Leukocyte Esterase (Negative) Urine WBC (0-5) /hpf Urine Bacteria (None) /hpf Hyaline Casts (0-2) /lpf Urine Mucus (None) /hpf Thrombosis Risk Factor Assmnt - DVT/VTE Prophylaxis DVT/VTE Prophylaxis: Pharmacologic Prophylaxis ordered - Choose All That Apply Each Factor Represents 1 point: Acute DC, Obesity (BMI >25) Each Risk Factor Represents 3 Points: Age 75 years or older Other congenital or acquired thrombophilia - If yes, enter type in comment: No Thrombosis Risk Factor Assessment Total Risk Factor Score: 5 Thrombosis Risk Factor Assessment Level: High Risk Assessment and Plan Plan: 1. Generalized weakness possibly related to dehydration with episodes of nausea and vomiting which have resolved. Also weakness may be related to underlying coronary artery disease. Patient has been on IV fluid. PT and OT consults. 2. Elevated troponins without chest pain. Patient is on a heparin drip, cardiology consult, repeat troponins. Nitro patch in place. 3. History of coronary artery disease status post CABG in 2011. Continue aspirin 162 mg daily, Lipitor 80 mg daily. 4. Hypertension. Continue hydralazine 100 mg 3 times daily, losartan 100 mg daily, Procardia 90 mg daily. 5. Chronic systolic heart failure, stable. Continue Demadex 20 mg daily, los nicole. 6. Hyperlipidemia. Continue Lipitor 80 mg daily. 4. Chronic kidney disease stage III, mild worsening in kidney function, monitor closely. 5. Hypertension. Continue Lopressor, losartan, hydralazine. 6. Diabetes mellitus type 2, insulin requiring. Continue NovoLog 70/30 15 units 3 times daily and NovoLog scale before meals and at bedtime 7. Anemia of chronic disease. Continue ferrous sulfate 325 mg daily 8. Gastroesophageal reflux disease and GI prophylaxis. Continue Protonix. 9. DVT prophylaxis. Patient is on heparin drip. 10. Recurrent depression. Patient has been taken off Lexapro. Patient will be admitted to the hospital for a minimal of 2 night stay. Discharge plan: Return home most likely, possible need for subacute rehab. PT and OT evaluations requested. Impression and plan of care have been directed as dictated by the signing physician. Talia Schneider nurse practitioner acting as scribe for signing physician.
[2018-12-11 11:50] LABS: Glucose,Whole Blood 180 mg/dL (75-99)
[2018-12-11 12:31] LABS: Appearance,Urine Cloudy (Clear); Bacteria,Urine Many /hpf; Bilirubin,Urine Negative (Negative); Blood,Urine Negative (Negative); Color,Urine Light Yellow; Glucose,Urine (UA) Negative (Negative); Ketones,Urine Negative (Negative); Leukocyte Esterase,Urine Large (Negative); Mucus,Urine Rare /hpf; Nitrite,Urine Positive (Negative); PH, Urine 5.5 (5.0-8.0); Protein,Urine Negative (Negative); RBC,Urine 1 /hpf (0-5); Squamous Epithelial Cell,Urine <1 /hpf (0-4); Urobilinogen,Urine <2.0 mg/dL (<2.0); WBC,Urine 40 /hpf (0-5)
[2018-12-11] MEDS: INSULN ASP PRT/INSULIN ASPART 100 UNIT/ML 10 ML VIAL SQ SCH ×3 (12:50→18:05)
[2018-12-11] MEDS: cloNIDine HCL 0.1 MG TAB PO SCH ×3 (12:55→21:15)
[2018-12-11] MEDS: INSULIN ASPART (NovoLOG) 100 UNIT/ML VIAL SQ SCH ×3 (12:55→19:39)
[2018-12-11 17:07] LABS: Glucose,Whole Blood 75 mg/dL (75-99)
[2018-12-11 19:40] LABS: Glucose,Whole Blood 121 mg/dL (75-99)
[2018-12-11] MEDS ORDERED: CYANOCOBALAMIN 500 MCG TAB PO SCH (21:00)
[2018-12-11] MEDS ORDERED: NON-FORMULARY DRUG (Ubidecarenone [Co Q-10] 100 MG) PO SCH (21:00)
[2018-12-11] MEDS ORDERED: ATORVASTATIN 80 MG TAB PO SCH (21:00)
[2018-12-11] MEDS ORDERED: PANTOPRAZOLE 40 MG TABLET PO SCH (21:00)
[2018-12-11] MEDS ORDERED: CHOLECALCIFEROL 1,000 UNIT TAB PO SCH (21:00)
[2018-12-11] MEDS ORDERED: FERROUS SULFATE 325 MG TAB PO SCH (21:00)
--- NOTE | 2018-12-11 21:50 | CONS ---
CONSULTATION CHIEF COMPLAINT: Elevated troponin. This is an 83-year-old lady with history of coronary artery disease status post CABG, chronic systolic heart failure, chronic renal insufficiency, diabetes, hypertension, dyslipidemia, who is admitted to the hospital primarily complaining of weakness and tiredness. Cardiology has been consulted because of elevated troponin. The patient denies chest pain or difficulty in breathing. There is no history of palpitations or syncope. There is no history of focal neurological deficits. Patient's troponins are elevated at 0.06 to 0.7, but they were also elevated at her last admission in April. Her BUN and creatinine are elevated at 47 and 1.47 and this is probably the reason why her tropes are elevated. EKG shows sinus rhythm with prolonged first-degree AV block and T-wave inversions in the inferolateral leads and these EKG findings are similar to her baseline EKG. I repeated an EKG on her today and she still remains in sinus rhythm with ST-T wave changes. Her monitor is showing quite a bit of heart defect. Chest x- ray shows mild pulmonary congestion. PAST MEDICAL HISTORY: Significant for coronary artery disease, renal insufficiency, hypertension, diabetes. MEDICATIONS: Include hydralazine 100 t.i.d., Demadex 20 daily, K-Dur, omeprazole, Procardia XL, losartan, Ativan, insulin, Lasix, iron, Cardura, Lipitor, aspirin, vitamin C, and allopurinol. ALLERGIES: The patient is allergic to CORTISONE, MORPHINE, AND PENICILLIN. FAMILY HISTORY: Negative for premature coronary artery disease. SOCIAL HISTORY: Negative for current smoking, EtOH abuse or drug abuse. REVIEW OF SYSTEMS: HEENT is unremarkable. Cardiac as described above. Respiratory negative. GI negative. Genitourinary negative. Skin negative. Musculoskeletal positive for arthritis. Psychosocial negative. Endocrine negative. Derm negative. Constitutional negative. Oncological negative. Rest of the system review is not relevant. EXAM: Comfortable at rest. Blood pressure is elevated at 190/75, respiratory rate 18. Chest exam reveals diminished air entry at the bases without any crackles or rhonchi. Heart exam reveals first and second heart sounds and a grade 4/6 ejection systolic murmur in the aortic area. Abdomen is soft. Exam of extremities did not reveal trace edema. Peripheral pulses are felt. ASSESSMENT: 1. Elevated troponin secondary to renal insufficiency. 2. Weakness, noncardiac in origin. 3. Coronary artery disease, status post angioplasty. 4. Chronic renal insufficiency. 5. Uncontrolled hypertension. PLAN: I am going to add Catapres to current medical regimen for more optimal blood pressure control. Continue rest of her medication. MMODL / IJN: [id number] /
[2018-12-12 06:42] LABS: Glucose,Whole Blood 128 mg/dL (75-99)
[2018-12-12] MEDS: INSULIN ASPART (NovoLOG) 100 UNIT/ML VIAL SQ SCH ×2 (06:48→11:53)
[2018-12-12] MEDS: INSULN ASP PRT/INSULIN ASPART 100 UNIT/ML 10 ML VIAL SQ SCH ×2 (06:49→12:19)
[2018-12-12] MEDS ORDERED: HEPARIN SODIUM,PORCINE 5,000 UNIT/ML 1 ML VIAL SQ SCH (09:00)
[2018-12-12] MEDS: LOSARTAN 50 MG TAB PO SCH (09:13)
[2018-12-12] MEDS: ASPIRIN 81 MG PO SCH (09:13)
[2018-12-12] MEDS: LORazepam 1 MG TAB PO SCH (09:13)
[2018-12-12] MEDS: NIFEdipine XL 90 MG TAB.ER.24 PO SCH (09:13)
[2018-12-12] MEDS: TORSEMIDE 20 MG TAB PO SCH (09:14)
[2018-12-12] MEDS: DOXAZOSIN 4 MG TAB PO SCH (09:14)
[2018-12-12] MEDS: cloNIDine HCL 0.1 MG TAB PO SCH ×2 (09:14→15:36)
[2018-12-12] MEDS: ASCORBIC ACID 500 MG TAB PO SCH (09:14)
[2018-12-12] MEDS: hydrALAZINE HCL 50 MG TAB PO SCH ×2 (09:14→15:36)
[2018-12-12] MEDS: ALLOPURINOL 100 MG TAB PO SCH (09:14)
--- NOTE | 2018-12-12 10:58 | ECHOF ---
Referral Reason:lv function MEASUREMENTS -------- HEIGHT: 152.4 cm WEIGHT: 68.0 kg BP: 194/75 RVIDd: 3.0 cm (< 3.3) IVSd: 1.7 cm (0.6 - 1.1) LVIDd: 3.8 cm (3.9 - 5.3) LVPWd: 2.2 cm (0.6 - 1.1) IVSs: 2.0 cm LVIDs: 2.1 cm LVPWs: 2.6 cm LAESV Index (A-L): 67.31 ml/m Ao Diam: 2.8 cm (2.0 - 3.7) AV Cusp: 1.4 cm (1.5 - 2.6) LA Diam: 4.9 cm (2.7 - 3.8) MV E Paco: 1.79 m/s MV DecT: 375 ms MV A Paco: 1.20 m/s MV E/A Ratio: 1.48 AV maxP.28 mmHg AV meanP.21 mmHg RAP: 20.00 mmHg RVSP: 51.12 mmHg FINDINGS -------- Resting bradycardia (HR<60bpm). This was a technically adequate study. The left ventricular size is normal. There is moderate concentric left ventricular hypertrophy. O verall left ventricular systolic function is normal with, an EF between 55 - 60 %. Left ventricular fillimg pressure cannot be estimated due to severe mitral annular calcification. The right ventricle is normal in size. LA is severely dilated >40 ml/m2 The right atrial size is normal. Interatrial and interventricular septum intact. There is no evidence of aortic regurgitation. There is moderate aortic stenosis present. Peak/dalia n gradient across the Aortic Valve is 36.28mmHg / 23.21mmHg. Severe mitral annular calcification present. Moderate mitral regurgitation is present. The peak and mean MV gradients are 16.41mmHg 6.86mmHg as measured by doppler. [id number] mitral stenos is , with a MVA of 2.3cm (by PHT) Moderate tricuspid regurgitation present. There is moderate to severe pulmonary hypertension. The right ventricular systolic pressure, as measured by Doppler, is 51.12mmHg. The aortic root size is normal. The inferior vena cava is dilated with poor inspiratory collapse which is consistent with estimated r ight atrial pressure of 20 mmHg. There is no pericardial effusion. CONCLUSIONS -------- 1. Resting bradycardia (HR<60bpm). 2. This was a technically adequate study. 3. The left ventricular size is normal. 4. There is moderate concentric left ventricular hypertrophy. 5. Overall left ventricular systolic function is normal with, an EF between 55 - 60 %. 6. Left ventricular fillimg pressure cannot be estimated due to severe mitral annular calcification. 7. The right ventricle is normal in size. 8. LA is severely dilated >40 ml/m2 9. The right atrial size is normal. 10. Interatrial and interventricular septum intact. 11. There is no evidence of aortic regurgitation. 12. There is moderate aortic stenosis present. 13. Peak/mean gradient across the Aortic Valve is 36.28mmHg / 23.21mmHg. 14. Severe mitral annular calcification present. 15. Moderate mitral regurgitation is present. 16. The peak and mean MV gradients are 16.41mmHg 6.86mmHg as measured by doppler. 17. Hpnx-[id number] mitral stenosis. 18. , with a MVA of 2.3cm (by PHT) 19. Moderate tricuspid regurgitation present. 20. There is moderate to severe pulmonary hypertension. 21. The right ventricular systolic pressure, as measured by Doppler, is 51.12mmHg. 22. The aortic root size is normal. 23. The inferior vena cava is dilated with poor inspiratory collapse which is consistent with estimat ed right atrial pressure of 20 mmHg. 24. There is no pericardial effusion. RIVET STICKER: Eboni Mireles RDCS
[2018-12-12 11:31] LABS: Glucose,Whole Blood 80 mg/dL (75-99)
[2018-12-12 11:58] VITALS: BP 146/71; PULSE 57; TEMP 97.2
--- NOTE | 2018-12-12 12:07 | PN ---
PROGRESS NOTE Rochelle is admitted to hospital with symptoms of feeling weak, fatigued and tired and Cardiology was consulted because of elevated troponin. Her troponin elevation is related to renal failure. The patient has aortic stenosis and known coronary artery disease. This morning patient is feeling much better and wishes to go home. Her blood pressures are well controlled. She is on aspirin, Catapres 0.1 t.i.d., Cardura, Apresoline, Cozaar, Procardia XL. On exam comfortable at rest. Vital signs are stable. Chest exam reveals good air entry bilaterally. Heart exam reveals first and second heart sounds and a grade 3/6 ejection systolic murmur in the aortic area. Abdomen is soft. Exam of extremities did not reveal any edema. Peripheral pulses are felt. LABS: I do not have any labs from today. ASSESSMENT: 1. Troponin elevation secondary to renal failure. 2. Uncontrolled hypertension. 3. Aortic stenosis. 4. Coronary artery disease status post angioplasty. PLAN: Patient is feeling much better. No further cardiac workup at this time. I will review the echocardiogram that was done yesterday. She already has an appointment with Dr. Diana, her primary darkroom worker, and should follow up with him. MMODL / IJN: [id number] /
[2018-12-12] MEDS ORDERED: LEVOFLOXACIN 250 MG TAB PO SCH (16:00)
[2018-12-12] MEDS ORDERED: LEVOFLOXACIN 250MG-D5W PMX 250 MG in DEXTROSE/WATER 1 50ML.BAG IVPB SCH (16:00)
--- NOTE | 2018-12-12 17:33 | P.DS ---
Providers Date of admission: 12/10/18 21:58 Attending physician: Mathew Amaral MD Consults: 12/10/18 21:53 Consult Physician Routine Consulting Provider: Zack Roldan Consult Reason/Comments: Troponin elevation Do you want consulting provider notified?: Yes Primary care physician: Leela Bill [facility] Course: This is an 83-year-old female patient of Dr. Bill and Dr. Diana with past medical history of coronary artery disease status post CABG in 2011 followed by myocardial infarction, chronic systolic heart failure, chronic kidney disease stage III, diabetes mellitus type 2 insulin requiring, hyperlipidemia, hypertension, cervical stenosis, chronic back pain. She had a hospitalization in June 2017 for acute episode of confusion and disorientation secondary to accelerated hypertension and hypoglycemia. She was also treated for acute kidney injury. She also had a hospitalization in September 2017 which time she presented with chest pain and dobutamine stress echocardiogram was negative for stress-induced ischemia. Most recently, patient was admitted April 2018 and was treated for acute on chronic systolic heart failure, hypertensive emergency and patient was discharged to [facility] for subacute rehab. Patient complains of of vomiting yesterday morning, not eating. No abdominal pain no chest pain no shortness of breath. She complains of generalized weakness espec ially in the lower extremities and unable to walk. The weakness has been going on for most of 2 months. Patient normally ambulates with a walker and her is next to her. Her states that she drags her feet and is a little bit tipsy. She may fall slightly to the right. Patient last saw Dr. Diana 2 months ago and at that time she was not having any concerns. She denies any medication changes. Previous echocardiogram reveals EF of 40-45% with severe concentric left hypertrophy, LA severely dilated greater than 40, mild aortic valve sclerosis, mild mitral regurgitation, mild tricuspid regurgitation, mild pulmonary hypertension. Patient came into [facility] emergency center for evaluation. She was found to be afebrile, heart rate in the 60s, blood pressure 149/51, pulse ox 97% on room air. EKG was a sinus rhythm with first-degree heart block and nonspecific ST changes. Her initial troponin was slightly elevated at 0.060 and repeat 0.070. BUN 47 creatinine 1.47, hemoglobin 8.8, blood sugar 139. Urinalysis was leukoesterase trace, bacteria moderate, WBCs 9 positive hyalin cast. Chest x-ray showed mild pulmonary vascular congestion. Small pleural effusions and/or atelectasis. Patient was started on a heparin drip and admitted to the cardiac stepdown unit. Cardiology consult in place. Incentive spirometry, PT and OT added. 12/12 patient examined at the site appears to be doing well denies any weakness. Patient has been cleared by cardiology. Patient has an appointment with Dr. Diana and Dr. Bill in the next 1 week.. UA was concerning for infection will start patient on levofloxacin for 5 days patient will follow with that her on culture results. Held losartan and Lasix due to worsening kidney function. Discharge diagnoses 1. Generalized weakness possibly related to dehydration 2. Elevated troponins 3. History of coronary artery disease status post CABG in 2011. 4. Hypertension. 5. Chronic systolic heart failure, stable. 6. Hyperlipidemia. 4. Chronic kidney disease stage III, mild worsening in kidney function 5. Hypertension. 6. Diabetes mellitus type 2, insulin requiring. 7. Anemia of chronic disease. Disposition home with home care Patient Condition at Discharge: Fair Plan - Discharge Summary New Discharge Prescriptions: New cloNIDine HCL [Catapres] 0.1 mg PO TID #90 tab Levofloxacin 250 mg PO DAILY #5 tablet Continue Omeprazole 40 mg PO HS Aspirin 162 mg PO DAILY@0800 Allopurinol 100 mg PO DAILY@0800 Nitroglycerin 0.2MG/Hr Patch [Nitro-Dur 0.2MG/Hr Patch] 1 patch TRANSDERM Q24H PRN PRN Reason: Chest Pain Ferrous Sulfate [Feosol] 325 mg PO HS Cholecalciferol [Vitamin D3 (25 Mcg = 1000 Iu)] 2,000 unit PO HS Ascorbic Acid [Vitamin C] 500 mg PO DAILY@0800 Atorvastatin [Lipitor] 80 mg PO HS hydrALAZINE HCL [Apresoline] 100 mg PO TID Insulin NPL/Insulin Lispro [humaLOG MIX 75-25 VIAL] 15 unit SQ AC-TID Ubidecarenone [Co Q-10] 100 mg PO HS Cyanocobalamin [Vitamin B-12] 500 mcg PO HS LORazepam [Ativan] 1 mg PO BID #6 tab Potassium Chloride [Klor-Con 20] 20 meq PO MOWEFR@2100 Aria Green Barley 3 tab PO BID NIFEdipine XL [Procardia XL] 90 mg PO DAILY@0800 Torsemide [Demadex] 20 mg PO DAILY@0800 Doxazosin [Cardura] 4 mg PO DAILY@0800 Discontinued Furosemide [Lasix] 40 mg PO DAILY@0800 Losartan Potassium 100 mg PO DAILY@0800 Discharge Medication List Allopurinol 100 mg PO DAILY@0800 03/05/14 [History] Aspirin 162 mg PO DAILY@0800 03/05/14 [History] Omeprazole 40 mg PO HS 03/05/14 [History] Ascorbic Acid [Vitamin C] 500 mg PO DAILY@0800 09/24/14 [History] Atorvastatin [Lipitor] 80 mg PO HS 09/24/14 [History] Cholecalciferol [Vitamin D3 (25 Mcg = 1000 Iu)] 2,000 unit PO HS 09/24/14 [History] Ferrous Sulfate [Feosol] 325 mg PO HS 09/24/14 [History] Nitroglycerin 0.2MG/Hr Patch [Nitro-Dur 0.2MG/Hr Patch] 1 patch TRANSDERM Q24H PRN 09/24/14 [History] hydrALAZINE HCL [Apresoline] 100 mg PO TID 07/04/17 [History] Cyanocobalamin [Vitamin B-12] 500 mcg PO HS 04/13/18 [History] Insulin NPL/Insulin Lispro [humaLOG MIX 75-25 VIAL] 15 unit SQ AC-TID 04/13/18 [History] Ubidecarenone [Co Q-10] 100 mg PO HS 04/13/18 [History] LORazepam [Ativan] 1 mg PO BID #6 tab 04/20/18 [Rx] Aria Green Barley 3 tab PO BID 12/10/18 [History] Doxazosin [Cardura] 4 mg PO DAILY@0800 12/10/18 [History] NIFEdipine XL [Procardia XL] 90 mg PO DAILY@0800 12/10/18 [History] Potassium Chloride [Klor-Con 20] 20 meq PO MOWEFR@2100 12/10/18 [History] Torsemide [Demadex] 20 mg PO DAILY@0800 12/10/18 [History] Levofloxacin 250 mg PO DAILY #5 tablet 12/12/18 [Rx] cloNIDine HCL [Catapres] 0.1 mg PO TID #90 tab 12/12/18 [Rx] Follow up Appointment(s)/Referral(s): Leela Bill MD [Primary Care Provider] - 1-2 days (offices closed, please call f or follow up appointment) Demetrius Diana MD [STAFF PHYSICIAN] - 1 Week (offices closed, please call for follow up appointment) [facility] Visiting Nurse, [NON-STAFF] - 1 Week Discharge Disposition: HOME WITH HOME HEALTH SERVICES
[2018-12-12] MEDS ORDERED: POTASSIUM CHLORIDE ER 20 MEQ TAB.ER PO SCH (21:00)
== END 2018-12-12 15:54 | disposition home health service (06) | DRG 641 ==
LOC: EC 16:17 → 3SCARD 21:58
PROVIDERS: ADMIT Internal Medicine; ATTEND Internal Medicine
DX: E86.0 Dehydration (principal); I50.22 Chronic systolic (congestive) heart failure; I13.0 Hypertensive heart and chronic kidney disease with heart failure and stage 1 through stage 4 chronic kidney disease, or unspecified chronic kidney disease; F33.9 Major depressive disorder, recurrent, unspecified; E11.22 Type 2 diabetes mellitus with diabetic chronic kidney disease; I27.20 Pulmonary hypertension, unspecified; I08.3 Combined rheumatic disorders of mitral, aortic and tricuspid valves; N18.3 Chronic kidney disease, stage 3 (moderate); D63.8 Anemia in other chronic diseases classified elsewhere; M48.02 Spinal stenosis, cervical region; I25.10 Atherosclerotic heart disease of native coronary artery without angina pectoris; I44.0 Atrioventricular block, first degree; E78.5 Hyperlipidemia, unspecified; G89.29 Other chronic pain; M54.9 Dorsalgia, unspecified; M54.2 Cervicalgia; R26.2 Difficulty in walking, not elsewhere classified; M25.562 Pain in left knee; K21.9 Gastro-esophageal reflux disease without esophagitis; I25.2 Old myocardial infarction; M19.90 Unspecified osteoarthritis, unspecified site; R77.8 Other specified abnormalities of plasma proteins; Z79.82 Long term (current) use of aspirin; Z79.4 Long term (current) use of insulin; Z79.899 Other long term (current) drug therapy; Z87.01 Personal history of pneumonia (recurrent); Z90.49 Acquired absence of other specified parts of digestive tract; Z95.1 Presence of aortocoronary bypass graft; Z90.710 Acquired absence of both cervix and uterus; Z98.61 Coronary angioplasty status; Z88.5 Allergy status to narcotic agent; Z88.0 Allergy status to penicillin; Z88.8 Allergy status to other drugs, medicaments and biological substances; Z83.3 Family history of diabetes mellitus; Z80.3 Family history of malignant neoplasm of breast; Z82.49 Family history of ischemic heart disease and other diseases of the circulatory system; Z80.9 Family history of malignant neoplasm, unspecified
CPT/HCPCS: 36415; 71046; 80053; 81001; 82550; 83690; 83735; 84484; 85025; 85730; 93005; 93306; 96360; 96361; 99285

== ENCOUNTER → 2019-03-15 | Outpatient (CLI) | payer MEDICARE | END | disposition home or self-care (01) | LOC: RADUSWWP 12:20 | PROVIDERS: ATTEND Thoracic Surgery (Cardiothoracic Vascular Surgery) | DX: L97.312 Non-pressure chronic ulcer of right ankle with fat layer exposed (principal); E08.622 Diabetes mellitus due to underlying condition with other skin ulcer | CPT/HCPCS: 93923 ==

== ENCOUNTER 2019-04-16 14:34 | Inpatient (IN) | payer MEDICARE ==
[2019-04-16] MEDS ORDERED: NITROGLYCERIN OINT 1 INCH/GM PACKET TOPICAL STA (14:58)
[2019-04-16] MEDS ORDERED: ASPIRIN 81 MG PO STA (14:58)
--- NOTE | 2019-04-16 15:01 | ED ---
General Adult HPI - General Chief complaint: Chest Pain Stated complaint: Chest pain Time Seen by Provider: 04/16/19 14:35 Source: patient, RN notes reviewed, old records reviewed Mode of arrival: wheelchair Limitations: physical limitation - History of Present Illness Initial comments: This is a 84-year-old female presents to the emergency department complaining of a week long history of shortness of breath anytime she lays down at night. Patient also states she has episodes of heaviness while she lays down at night. Patient states during the day when she is walking around she does not have any of these symptoms though she does walk too far she feels like she might pass out. Patient denies any symptoms currently. Patient states she got up this morning and had the sensation of being short of breath so she took an Ativan as time went on it felt better. Patient states she decided come in because she was worried about this ongoing for a week. Patient denied any fever chills or cough. Patient states she has had open-heart surgery in the past. - Related Data Home Medications Medication Instructions Recorded Confirmed Allopurinol 100 mg PO DAILY@0800 03/05/14 12/10/18 Aspirin 162 mg PO DAILY@0800 03/05/14 12/10/18 Omeprazole 40 mg PO 03/05/14 12/10/18 Ascorbic Acid [Vitamin C] 500 mg PO DAILY@0800 09/24/14 12/10/18 Atorvastatin [Lipitor] 80 mg PO HS 09/24/14 12/10/18 Cholecalciferol [Vitamin D3 (25 2,000 unit PO HS 09/24/14 12/10/18 Mcg = 1000 Iu)] Ferrous Sulfate [Feosol] 325 mg PO HS 09/24/14 12/10/18 Nitroglycerin 0.2MG/Hr Patch 1 patch TRANSDERM Q24H PRN 09/24/14 12/10/18 [Nitro-Dur 0.2MG/Hr Patch] hydrALAZINE HCL [Apresoline] 100 mg PO TID 07/04/17 12/10/18 Cyanocobalamin [Vitamin B-12] 500 mcg PO HS 04/13/18 12/10/18 Insulin NPL/Insulin Lispro 15 unit SQ AC-TID 04/13/18 12/10/18 [humaLOG MIX 75-25 VIAL] Ubidecarenone [Co Q-10] 100 mg PO HS 04/13/18 12/10/18 Aria Green Barley 3 tab PO BID 12/10/18 12/10/18 Doxazosin [Cardura] 4 mg PO DAILY@79912/10/18 12/10/18 NIFEdipine XL [Procardia XL] 90 mg PO DAILY@79912/10/18 12/10/18 Potassium Chloride [Klor-Con 20] 20 meq PO MOWEFR@2100 12/10/18 12/10/18 Torsemide [Demadex] 20 mg PO DAILY@79912/10/18 12/10/18 Previous Rx's Medication Instructions Recorded LORazepam [Ativan] 1 mg PO BID #6 tab 04/20/18 Levofloxacin 250 mg PO DAILY #5 tablet 12/12/18 cloNIDine HCL [Catapres] 0.1 mg PO TID #90 tab 12/12/18 Allergies Allergy/AdvReac Type Severity Reaction Status Date / Time cortisone Allergy Rash/Hives Verified 04/16/19 14:38 morphine Allergy Unknown Verified 04/16/19 14:38 Penicillins Allergy Rash/Hives Verified 04/16/19 14:38 Review of Systems ROS Statement: Those systems with pertinent positive or pertinent negative responses have been documented in the HPI. ROS Other: All systems not noted in ROS Statement are negative. Past Medical History Past Medical History: Coronary Artery Disease (CAD), Heart Failure, Diabetes Mellitus, GERD/Reflux, Hyperlipidemia, Hypertension, Myocardial Infarction ([place]), Osteoarthritis (OA), Pneumonia Additional Past Medical History / Comment(s): Hx Mitral regurgitation, anemia, reproductive problems when younger., NECK PAIN. Last Myocardial Infarction Date:: 08/2014 History of Any Multi-Drug Resistant Organisms: None Reported Past Surgical History: Cholecystectomy, Coronary Bypass/CABG, Hysterectomy Additional Past Surgical History / Comment(s): 8x D&C, CABG 7 Blockages, bilateral foot surgery to remove tumors Past Anesthesia/Blood Transfusion Reactions: No Reported Reaction Past Psychological History: No Psychological Hx Reported Smoking Status: Never smoker Past Alcohol Use History: Occasional Past Drug Use History: None Reported - Past Family History Mother Family Medical History: Cancer, Diabetes Mellitus Additional Family Medical History / Comment(s): Mother had breast cancer. Father Family Medical History: Congestive Heart Failure (CHF) Brother(s) Family Medical History: Cancer (Patient is lives with her , functionally active denies any need a walker or assistance) General Exam - General Exam Comments Initial Comments: GENERAL: Patient is well-developed and well-nourished. Patient is nontoxic and well- hydrated and is in mild distress. ENT: Neck is soft and supple. No significant lymphadenopathy is noted. Oropharynx is clear. Moist mucous membranes. Neck has full range of motion without eliciting any pain. EYES: The sclera were anicteric and conjunctiva were pink and moist. Extraocular movements were intact and pupils were equal round and reactive to light. Eyelids were unremarkable. PULMONARY: Unlabored respirations. Good breath sounds bilaterally. No audible rales rhonchi or wheezing was noted. CARDIOVASCULAR: There is a regular rate and rhythm without any murmurs gallops or rubs. ABDOMEN: Soft and nontender with normal bowel sounds. No palpable organomegaly was noted. There is no palpable pulsatile mass. SKIN: Skin is clear with no lesions or rashes and otherwise unremarkable. NEUROLOGIC: Patient is alert and oriented x3. Cranial nerves II through XII are grossly intact. Motor and sensory are also intact. Normal speech, volume and content. Symmetrical smile. MUSCULOSKELETAL: Normal extremities with adequate strength and full range of motion. 1+ bilaterally LYMPHATICS: No significant lymphadenopathy is noted PSYCHIATRIC: Patient appears mildly anxious Limitations: physical limitation Course Vital Signs 04/16/19 04/16/19 04/16/19 14:36 15:06 15:38 Temperature 97.4 F L Pulse Rate 62 56 L Pulse Rate [ 61 Sitting] Pulse Rate [ 60 Standing] Pulse Rate [ 51 L Supine] Respiratory 18 20 Rate Blood Pressure 189/69 141/87 Blood Pressure 179/58 [Sitting] Blood Pressure 185/56 [Standing] Blood Pressure 174/55 [Supine] O2 Sat by Pulse 97 95 Oximetry Medical Decision Making - Medical Decision Making EKG shows sinus bradycardia 59 bpm MA interval is 266 QRS is 112 QTC intervals 44 QTC is 479. Patient's EKG shows T-wave inversions in leads 1 to aVL and aVF as well as V5 and V6 of these are seen on old EKG. Chest x-ray shows mild venous congestion. I started the patient on Lasix. I sp regan with Dr. Bill he agreed to admit the patient admitted the patient wrote admitting orders. - Lab Data Result diagrams: 04/16/19 15:26 04/16/19 15:26 Lab Results 04/16/19 04/16/19 04/16/19 Range/Units 15:26 15:26 15:26 WBC 5.3 (3.8-10.6) k/uL RBC 2.96 L (3.80-5.40) m/uL Hgb 9.4 L (11.4-16.0) gm/dL Hct 29.3 L (34.0-46.0) % MCV 99.1 (80.0-100.0) fL MCH 31.7 (25.0-35.0) pg MCHC 32.0 (31.0-37.0) g/dL RDW 14.8 (11.5-15.5) % Plt Count 243 (150-450) k/uL Neutrophils % 66 % Lymphocytes % 18 % Monocytes % 10 % Eosinophils % 2 % Basophils % 0 % Neutrophils # 3.5 (1.3-7.7) k/uL Lymphocytes # 1.0 (1.0-4.8) k/uL Monocytes # 0.5 (0-1.0) k/uL Eosinophils # 0.1 (0-0.7) k/uL Basophils # 0.0 (0-0.2) k/uL Macrocytosis Slight PT (9.0-12.0) sec INR (<1.2) APTT (22.0-30.0) sec Sodium 142 (137-145) mmol/L Potassium 4.1 (3.5-5.1) mmol/L Chloride 110 H (98-107) mmol/L Carbon Dioxide 23 (22-30) mmol/L Anion Gap 9 mmol/L BUN 26 H (7-17) mg/dL Creatinine 1.10 H (0.52-1.04) mg/dL Est GFR (CKD-EPI)AfAm 54 (>60 ml/min/1.73 sqM) Est GFR (CKD-EPI)NonAf 47 (>60 ml/min/1.73 sqM) Glucose 89 (74-99) mg/dL Calcium 9.7 (8.4-10.2) mg/dL Magnesium 2.4 H (1.6-2.3) mg/dL Total Bilirubin 0.5 (0.2-1.3) mg/dL AST 23 (14-36) U/L ALT 17 (4-34) U/L Alkaline Phosphatase 81 (38-126) U/L Troponin I (0.000-0.034) ng/mL NT-Pro-B Natriuret Pep 5380 pg/mL Total Protein 6.0 L (6.3-8.2) g/dL Albumin 3.5 (3.5-5.0) g/dL 04/16/19 04/16/19 Range/Units 15:26 15:26 WBC (3.8-10.6) k/uL RBC (3.80-5.40) m/uL Hgb (11.4-16.0) gm/dL Hct (34.0-46.0) % MCV (80.0-100.0) fL MCH (25.0-35.0) pg MCHC (31.0-37.0) g/dL RDW (11.5-15.5) % Plt Count (150-450) k/uL Neutrophils % % Lymphocytes % % Monocytes % % Eosinophils % % Basophils % % Neutrophils # (1.3-7.7) k/uL Lymphocytes # (1.0-4.8) k/uL Monocytes # (0-1.0) k/uL Eosinophils # (0-0.7) k/uL Basophils # (0-0.2) k/uL Macrocytosis PT 10.2 (9.0-12.0) sec INR 0.9 (<1.2) APTT 24.6 (22.0-30.0) sec Sodium (137-145) mmol/L Potassium (3.5-5.1) mmol/L Chloride (98-107) mmol/L Carbon Dioxide (22-30) mmol/L Anion Gap mmol/L BUN (7-17) mg/dL Creatinine (0.52-1.04) mg/dL Est GFR (CKD-EPI)AfAm (>60 ml/min/1.73 sqM) Est GFR (CKD-EPI)NonAf (>60 ml/min/1.73 sqM) Glucose (74-99) mg/dL Calcium (8.4-10.2) mg/dL Magnesium (1.6-2.3) mg/dL Total Bilirubin (0.2-1.3) mg/dL AST (14-36) U/L ALT (4-34) U/L Alkaline Phosphatase (38-126) U/L Troponin I 0.030 (0.000-0.034) ng/mL NT-Pro-B Natriuret Pep pg/mL Total Protein (6.3-8.2) g/dL Albumin (3.5-5.0) g/dL Disposition Clinical Impression: Pulmonary edema, Chest pain Disposition: ADMITTED IP TO THIS HOSP Referrals: Leela Bill MD [Primary Care Provider] - 1-2 days Time of Disposition: 16:19
[2019-04-16 15:36] LABS: Basophils % (A) 0 %; Eosinophils # (A) 0.1 k/uL (0-0.7); Eosinophils % (A) 2 %; HCT 29.3 % (34.0-46.0); HGB 9.4 gm/dL (11.4-16.0); Lymphocytes % (A) 18 %; MCH 31.7 pg (25.0-35.0); MCV 99.1 fL (80.0-100.0); Macrocytosis Slight; Mean Platelet Volume 9.3; Monocytes # (A) 0.5 k/uL (0-1.0); Monocytes % (A) 10 %; Neutrophils # (A) 3.5 k/uL (1.3-7.7); Neutrophils % (A) 66 %; Platelet Count 243 k/uL (150-450); RBC 2.96 m/uL (3.80-5.40); RDW 14.8 % (11.5-15.5); WBC 5.3 k/uL (3.8-10.6)
[2019-04-16 15:45] LABS: Albumin 3.5 g/dL (3.5-5.0); Calcium 9.7 mg/dL (8.4-10.2); Magnesium 2.4 mg/dL (1.6-2.3); Potassium 4.1 mmol/L (3.5-5.1); Total Bilirubin 0.5 mg/dL (0.2-1.3)
[2019-04-16 15:54] LABS: INR 0.9 (<1.2); Partial Thromboplastin Time 24.6 sec (22.0-30.0); Prothrombin Time 10.2 sec (9.0-12.0)
--- NOTE | 2019-04-16 16:02 | XR ---
EXAMINATION TYPE: XR chest 2V DATE OF EXAM: 04/16/2019 COMPARISON: 12/10/2018 INDICATION: Chest pain short of breath TECHNIQUE: Frontal and lateral views of the chest are obtained. FINDINGS: The heart size is mildly prominent. The pulmonary vasculature is upper limits of normal. There is mild right perihilar increased density. Correlate for bronchitis. Underlying right hilar mas s is not excluded. Follow up CT chest can be performed when the patient is stable.. IMPRESSION: 1. Findings suggestive for right perihilar infiltrate. Correlate for pneumonia or bronchitis. Underly ing mass is not excluded and follow-up is recommended.
[2019-04-16] MEDS ORDERED: FUROSEMIDE 10 MG/ML 4 ML VIAL IV STA (16:09)
[2019-04-16] MEDS: NITROGLYCERIN OINT 1 INCH/GM PACKET TOPICAL SCH ×2 (19:35→23:19)
[2019-04-16 20:13] LABS: Glucose,Whole Blood 216 mg/dL (75-99)
[2019-04-16] MEDS ORDERED: NON FORMULARY DRUG (Ubidecarenone [Co Q-10] 200 MG) PO SCH (21:00)
[2019-04-16] MEDS: ATORVASTATIN 80 MG TAB PO SCH (21:02)
[2019-04-16] MEDS: LORazepam 1 MG TAB PO SCH (21:03)
[2019-04-16] MEDS: hydrALAZINE HCL 50 MG TAB PO SCH (21:03)
[2019-04-16] MEDS: CYANOCOBALAMIN 500 MCG TAB PO SCH (21:03)
[2019-04-16] MEDS: PANTOPRAZOLE 40 MG TABLET PO SCH (21:03)
[2019-04-16] MEDS: cloNIDine HCL 0.1 MG TAB PO SCH (21:03)
[2019-04-16] MEDS: FERROUS SULFATE 325 MG TAB PO SCH (21:03)
[2019-04-16] MEDS: CHOLECALCIFEROL 1,000 UNIT TAB PO SCH (21:03)
[2019-04-17] MEDS ORDERED: FUROSEMIDE 10 MG/ML 2 ML VIAL IV SCH
[2019-04-17] MEDS: cloNIDine HCL 0.1 MG TAB PO SCH ×3 (06:06→21:18)
[2019-04-17] MEDS: hydrALAZINE HCL 50 MG TAB PO SCH ×3 (06:06→21:18)
[2019-04-17] MEDS: DOXAZOSIN 4 MG TAB PO SCH (06:10)
[2019-04-17 07:17] LABS: Glucose,Whole Blood 124 mg/dL (75-99)
[2019-04-17] MEDS ORDERED: INSULN ASP PRT/INSULIN ASPART 100 UNIT/ML 10 ML VIAL SQ SCH (07:30)
[2019-04-17] MEDS: POTASSIUM CHLORIDE ER 20 MEQ TAB.ER PO SCH (08:00)
[2019-04-17] MEDS ORDERED: ASPIRIN 81 MG PO SCH (08:00)
[2019-04-17] MEDS ORDERED: TORSEMIDE 20 MG TAB PO SCH (08:00)
[2019-04-17] MEDS: ALLOPURINOL 100 MG TAB PO SCH (08:00)
[2019-04-17] MEDS: LORazepam 1 MG TAB PO SCH ×2 (08:01→21:18)
[2019-04-17] MEDS: ASCORBIC ACID 500 MG TAB PO SCH (08:01)
[2019-04-17] MEDS: NITROGLYCERIN OINT 1 INCH/GM PACKET TOPICAL SCH ×2 (08:02→12:48)
[2019-04-17] MEDS: NIFEdipine XL 90 MG TAB.ER.24 PO SCH (08:02)
[2019-04-17] MEDS ORDERED: COLLAGENASE 250 UNIT/GM OINTMENT 30 GM TUBE TOPICAL SCH (09:00)
[2019-04-17 10:50] VITALS: BMI 23.2
[2019-04-17 11:46] LABS: Glucose,Whole Blood 48 mg/dL (75-99)
[2019-04-17 12:05] LABS: Glucose,Whole Blood 55 mg/dL (75-99)
--- NOTE | 2019-04-17 12:16 | P.CONS ---
History of Present Illness - Reason for Consult Consult date: 04/17/19 Right foot ulceration - History of Present Illness This is an 84-year-old pleasant female who is known to the wound care center being seen on 5 N. for a nonhealing ulceration to the anterior aspect of the right foot. Patient was seen last Wednesday in the wound care center. Dressing changes have been completed with Santyl daily. Patient is tolerating the dressings without any difficulties. Patient is in the hospital for difficulty breathing. Ulceration to the anterior right foot appears healed at this time. Review of Systems Review Of Systems: Constitutional: No fever, no chills, no night sweats. No weight change. No weakness, fatigue or lethargy. No daytime sleepiness. Integumentary:reports wounds, no lesions. No rash or pruritus. No unusual bruising. No change in hair or nails. Past Medical History Past Medical History: Coronary Artery Disease (CAD), Heart Failure, Diabetes Mellitus, GERD/Reflux, Hyperlipidemia, Hypertension, Myocardial Infarction ([place]), Osteoarthritis (OA) Additional Past Medical History / Comment(s): Hx Mitral regurgitation, anemia, reproductive problems when younger., NECK PAIN. Last Myocardial Infarction Date:: 08/2014 History of Any Multi-Drug Resistant Organisms: None Reported Past Surgical History: Cholecystectomy, Coronary Bypass/CABG, Hysterectomy Additional Past Surgical History / Comment(s): 8x D&C, CABG 7 Blockages, bilateral foot surgery to remove tumors Past Anesthesia/Blood Transfusion Reactions: No Reported Reaction Past Psychological History: No Psychological Hx Reported Additional Psychological History / Comment(s): Pt resides with her spouse. She is independent. She uses a walker for ambulation. Smoking Status: Never smoker Past Alcohol Use History: Occasional Additional Past Alcohol Use History / Comment(s): Patient is and lives with her . Past Drug Use History: None Reported - Past Family History Mother Family Medical History: Cancer, Diabetes Mellitus Additional Family Medical History / Comment(s): Mother had breast cancer. Father Family Medical History: Congestive Heart Failure (CHF) Brother(s) Family Medical History: Cancer (Patient is lives with her , functionally active denies any need a walker or assistance) Medications and Allergies Home Medications Medication Instructions Recorded Confirmed Type Allopurinol 100 mg PO DAILY@0800 03/05/14 04/16/19 History Aspirin 162 mg PO DAILY@0800 03/05/14 01/05/20 History Omeprazole 40 mg PO HS 03/05/14 04/16/19 History Ascorbic Acid [Vitamin C] 500 mg PO DAILY@79909/24/14 04/16/19 History Atorvastatin [Lipitor] 80 mg PO HS 09/24/14 04/16/19 History Cholecalciferol [Vitamin D3 (25 2,000 unit PO HS 09/24/14 04/16/19 History Mcg = 1000 Iu)] Ferrous Sulfate [Feosol] 325 mg PO HS 09/24/14 04/16/19 History Nitroglycerin 0.2MG/Hr Patch 1 patch TRANSDERM Q24H PRN 09/24/14 04/16/19 History [Nitro-Dur 0.2MG/Hr Patch] hydrALAZINE HCL [Apresoline] 100 mg PO TID 07/04/17 04/16/19 History Cyanocobalamin [Vitamin B-12] 500 mcg PO HS 04/13/18 04/16/19 History Insulin NPL/Insulin Lispro 15 unit SQ AC-BID 04/13/18 04/16/19 History [humaLOG MIX 75-25 VIAL] Ubidecarenone [Co Q-10] 200 mg PO HS 04/13/18 04/16/19 History LORazepam [Ativan] 1 mg PO BID #6 tab 04/20/18 04/16/19 Rx Aria Green Barley 3 tab PO BID 12/10/18 04/16/19 History Doxazosin [Cardura] 4 mg PO DAILY@79912/10/18 04/16/19 History NIFEdipine XL [Procardia XL] 90 mg PO DAILY@79912/10/18 04/16/19 History Torsemide [Demadex] 20 mg PO DAILY@79912/10/18 04/16/19 History cloNIDine HCL [Catapres] 0.1 mg PO TID #90 tab 12/12/18 04/16/19 Rx Collagenase [Santyl] 1 applic TOPICAL DAILY 04/16/19 04/16/19 History Furosemide [Lasix] 40 mg PO MOWEFR 04/16/19 04/16/19 History Potassium Chloride ER [K-Dur 20] 20 meq PO MOWEFR 04/16/19 04/16/19 History Allergies Allergy/AdvReac Type Severity Reaction Status Date / Time cortisone Allergy Rash/Hives Verified 04/16/19 17:52 morphine Allergy Unknown Verified 04/16/19 17:52 Penicillins Allergy Rash/Hives Verified 04/16/19 17:52 Physical Exam Vitals: Vital Signs Temp Pulse Pulse Pulse Pulse Resp BP 04/17/19 11:49 97.4 F L 64 16 04/17/19 08:00 61 60 73 16 04/17/19 06:07 04/17/19 05:45 04/17/19 04:58 98.0 F 73 16 04/16/19 21:21 97.5 F L 65 16 04/16/19 16:00 56 L 20 136/78 04/16/19 15:38 56 L 20 141/87 04/16/19 15:06 61 60 51 L 04/16/19 14:36 97.4 F L 62 18 189/69 BP BP BP Pulse Ox 04/17/19 11:49 160/52 97 04/17/19 08:00 04/17/19 06:07 96 04/17/19 05:45 220/88 04/17/19 04:58 202/63 90 L 04/16/19 21:21 183/60 93 L 04/16/19 16:00 95 04/16/19 15:38 95 04/16/19 15:06 179/58 185/56 174/55 04/16/19 14:36 97 Intake and Output 04/16/19 04/17/19 04/17/19 22:59 06:59 14:59 Intake Total 590 300 Output Total 1 Balance 590 300 -1 Intake: Oral 590 300 Output: Stool 1 Other: Voiding Method Toilet Toilet Diaper Diaper # Voids 3 5 1 Weight 67.903 kg 54 kg 54 kg Physical exam: General Appearance: Alert, cooperative, no distress, appears stated age. Skin: See HPI all other Skin color, texture, tugor normal, no rashes or lesions. Neurologic: Alert oriented x3 Results CBC & Chem 7: 04/16/19 15:26 04/16/19 15:26 Labs: Abnormal Lab Results - Last 24 Hours (Table) 04/16/19 04/16/19 04/16/19 Range/Units 15:26 15:26 20:12 RBC 2.96 L (3.80-5.40) m/uL Hgb 9.4 L (11.4-16.0) gm/dL Hct 29.3 L (34.0-46.0) % Chloride 110 H (98-107) mmol/L BUN 26 H (7-17) mg/dL Creatinine 1.10 H (0.52-1.04) mg/dL POC Glucose (mg/dL) 216 H (75-99) mg/dL Magnesium 2.4 H (1.6-2.3) mg/dL Troponin I (0.000-0.034) ng/mL Total Protein 6.0 L (6.3-8.2) g/dL 04/16/19 04/17/19 04/17/19 Range/Units 22:27 07:14 11:35 RBC (3.80-5.40) m/uL Hgb (11.4-16.0) gm/dL Hct (34.0-46.0) % Chloride (98-107) mmol/L BUN (7-17) mg/dL Creatinine (0.52-1.04) mg/dL POC Glucose (mg/dL) 124 H 48 L (75-99) mg/dL Magnesium (1.6-2.3) mg/dL Troponin I 0.037 H* (0.000-0.034) ng/mL Total Protein (6.3-8.2) g/dL 04/17/19 Range/Units 12:03 RBC (3.80-5.40) m/uL Hgb (11.4-16.0) gm/dL Hct (34.0-46.0) % Chloride (98-107) mmol/L BUN (7-17) mg/dL Creatinine (0.52-1.04) mg/dL POC Glucose (mg/dL) 55 L (75-99) mg/dL Magnesium (1.6-2.3) mg/dL Troponin I (0.000-0.034) ng/mL Total Protein (6.3-8.2) g/dL Assessment and Plan (1) Non-pressure chronic ulcer of right ankle with fat layer exposed Current Visit: Yes Status: Acute Code(s): L97.312 - NON-PRS CHRONIC ULCER OF RIGHT ANKLE W FAT LAYER EXPOSED SNOMED Code(s): 51752147956475865 (2) Diabetes mellitus due to underlying condition with other skin ulcer Current Visit: Yes Status: Acute Code(s): E08.622 - DIABETES DUE TO UNDERLYING CONDITION W OTH SKIN ULCER; L98.499 - NON-PRESSURE CHRONIC ULCER OF SKIN OF SITES W UNSP SEVERITY SNOMED Code(s): 1881372 Plan: We will discontinue Santyl at this time. Foam to the site change is needed when soiled. The patient will be seen in the wound care center next week for a 15th at 3:00. If the area reopens or has drainage we will restart the Santyl for daily dressing changes. Thank you for the consultation, any questions please contact the wound care center. DNP note has been reviewed and discussed with Dr. Williamson and the impression and plan of care has been directed as dictated.
[2019-04-17 12:23] LABS: Glucose,Whole Blood 65 mg/dL (75-99)
[2019-04-17 12:55] LABS: Glucose,Whole Blood 87 mg/dL (75-99)
--- NOTE | 2019-04-17 14:09 | P.CRDCN ---
History of Present Illness History of present illness: HISTORY OF PRESENTING ILLNESS This is a pleasant 84-year-old female past medical history significant for an area artery disease status post bypass grafting in 2011, hypertension, d iabetes mellitus, chronic diastolic heart failure, dyslipidemia and nonhealing ulcer on the right lower extremity. She follows in the office with Dr. Diana. We have been asked to see in consultation for chest pain. She presented to the hospital yesterday evening with symptoms of progressive shortness of breath for the previous one to 2 weeks when she lays flat in bed. She states when she lays down to go to sleep she becomes acutely short of breath and feels very heavy pressure sensation in the chest. When she sits up and moves around he shortness of breath and chest discomfort resolves. She states over the holidays she has had increased salt in her diet. She was given one dose of IV Lasix yesterday in the emergency department which caused her to urinate quite significantly. She states last evening when she tried to lay down she again became short of breath. At the time of my exam she is sitting up in bed with family at the bedside and denies active shortness of breath or chest pain. DIAGNOSTICS EKG reveals sinus bradycardia with first degree AV block heart rate 59, T-wave inversion inferior/laterally with evidence of old anterior wall ischemia. Consistent with previous EKG's. No acute changes. Chest xray right perihilar infiltrate, underlying mass not entirely excluded. Laboratory reviewed, WBC 5.3, hemoglobin 9.4, platelets 142, potassium 4.1, creatinine 1.1 with a GFR 47, magnesium 2.4, troponin 0.030, 0.037 and 0.034, NT proBNP 5380. Current cardiac medications include hydralazine 100 mg 3 times a day, clonidine 0.1 mg 3 times a day, Demadex 20 mg in the morning, nifedipine 90 mg daily, Lasix 40 mg Wednesday and Wednesday, Cardura 4 mg daily, atorvastatin 80 mg daily and aspirin 162 mg daily. Most recent echocardiogram obtained December 2018 reveals preserved LV systolic function with ejection fraction 55-60%, severely dilated left atrium, moderate aortic stenosis with a mean gradient of 23 mmHg, moderate mitral regurgitation, severe mitral annual calcification with mild to moderate mitral stenosis with a gradient across the valve is 6 mmHg and a valve area of 2.3 cm, moderate TR and moderate to severe pulmonary hypertension with an RVSP of 51 mmHg. REVIEW OF SYSTEMS At the time of my exam: CONSTITUTIONAL: Denies fever or chills. CARDIOVASCULAR: Denies chest pain, shortness of breath, orthopnea, PND or palpitations. RESPIRATORY: Denies cough. GASTROINTESTINAL: Denies abdominal pain, diarrhea, constipation, nausea or vomiting. MUSCULOSKELETAL: Denies myalgias. NEUROLOGIC: Denies numbness, tingling or weakness. ENDOCRINE: Denies fatigue, weight change, polydipsia or polyurina. GENITOURINARY: Denies burning, hematuria or urgency with micturation. HEMATOLOGIC: Denies history of anemia or bleeding. PHYSICAL EXAMINATION Blood pressure 160/52 heart rate 64 afebrile and maintaining oxygen saturation on nasal cannula. CONSTITUTIONAL: No apparent distress. HEENT: Head is normocephalic. Pupils are equal, round. Sclerae anicteric. Mucous membranes of the mouth are moist. No JVD. No carotid bruit. CHEST EXAMINATION: Faint bibasilar rales. No chest wall tenderness is noted on palpation or with deep breathing. HEART EXAMINATION: Regular rate and rhythm. S1, S2 heard. Holosystolic murmur at all listening points, no gallops or rub. ABDOMEN: Soft, nontender. Positive bowel sounds. EXTREMITIES: 1+ peripheral pulses, 1+ bilateral lower extremity edema, right lower extremity dressing in place and no calf tenderness. NEUROLOGIC EXAMINATION: Patient is awake, alert and oriented x3. ASSESSMENT Acute on chronic diastolic Coronary artery disease status post bypass grafting Hypertension, uncontrolled Valvular heart disease Dyslipidemia Diabetes mellitus Chronic kidney disease, GFR 47. Stage IIIa PLAN Initiate Lasix IV 40 mg twice a day. Document accurate intake and output along with daily weights. Decrease aspirin to 81 mg daily. Start on losartan 25 mg daily for better blood pressure control. Follow renal function and electrolytes in the morning. Advised patient to follow a low sodium diet. Advised the patient that once she is feeling better and discharged home a EMILY with Dr. Diana as an outpatient will be considered. Further recommendations to follow based upon clinical course. Thank you kindly for this consultation. Nurse Practitioner note has been reviewed, I agree with a documented findings and plan of care. Patient was seen and examined. Past Medical History Past Medical History: Coronary Artery Disease (CAD), Heart Failure, Diabetes Mellitus, GERD/Reflux, Hyperlipidemia, Hypertension, Myocardial Infarction ([place]), Osteoarthritis (OA) Additional Past Medical History / Comment(s): Hx Mitral regurgitation, anemia, reproductive problems when younger., NECK PAIN. Last Myocardial Infarction Date:: 08/2014 History of Any Multi-Drug Resistant Organisms: None Reported Past Surgical History: Cholecystectomy, Coronary Bypass/CABG, Hysterectomy Additional Past Surgical History / Comment(s): 8x D&C, CABG 7 Blockages, bilateral foot surgery to remove tumors Past Anesthesia/Blood Transfusion Reactions: No Reported Reaction Past Psychological History: No Psychological Hx Reported Additional Psychological History / Comment(s): Pt resides with her spouse. She is independent. She uses a walker for ambulation. Smoking Status: Never smoker Past Alcohol Use History: Occasional Additional Past Alcohol Use History / Comment(s): Patient is and lives with her . Past Drug Use History: None Reported - Past Family History Mother Family Medical History: Cancer, Diabetes Mellitus Additional Family Medical History / Comment(s): Mother had breast cancer. Father Family Medical History: Congestive Heart Failure (CHF) Brother(s) Family Medical History: Cancer (Patient is lives with her , f unctionally active denies any need a walker or assistance) Medications and Allergies Home Medications Medication Instructions Recorded Confirmed Type Allopurinol 100 mg PO DAILY@0800 03/05/14 04/16/19 History Aspirin 162 mg PO DAILY@0800 03/05/14 04/16/19 History Omeprazole 40 mg PO HS 03/05/14 04/16/19 History Ascorbic Acid [Vitamin C] 500 mg PO DAILY@0800 09/24/14 04/16/19 History Atorvastatin [Lipitor] 80 mg PO HS 09/24/14 04/16/19 History Cholecalciferol [Vitamin D3 (25 2,000 unit PO HS 09/24/14 04/16/19 History Mcg = 1000 Iu)] Ferrous Sulfate [Feosol] 325 mg PO HS 09/24/14 04/16/19 History Nitroglycerin 0.2MG/Hr Patch 1 patch TRANSDERM Q24H PRN 09/24/14 04/16/19 History [Nitro-Dur 0.2MG/Hr Patch] hydrALAZINE HCL [Apresoline] 100 mg PO TID 07/04/17 04/16/19 History Cyanocobalamin [Vitamin B-12] 500 mcg PO HS 04/13/18 04/16/19 History Insulin NPL/Insulin Lispro 15 unit SQ AC-BID 04/13/18 04/16/19 History [humaLOG MIX 75-25 VIAL] Ubidecarenone [Co Q-10] 200 mg PO HS 04/13/18 04/16/19 History LORazepam [Ativan] 1 mg PO BID #6 tab 04/20/18 04/16/19 Rx Aria Green Barley 3 tab PO BID 12/10/18 04/16/19 History Doxazosin [Cardura] 4 mg PO DAILY@79912/10/18 04/16/19 History NIFEdipine XL [Procardia XL] 90 mg PO DAILY@79912/10/18 04/16/19 History Torsemide [Demadex] 20 mg PO DAILY@79912/10/18 04/16/19 History cloNIDine HCL [Catapres] 0.1 mg PO TID #90 tab 12/12/18 04/16/19 Rx Collagenase [Santyl] 1 applic TOPICAL DAILY 04/16/19 04/16/19 History Furosemide [Lasix] 40 mg PO MOWEFR 04/16/19 04/16/19 History Potassium Chloride ER [K-Dur 20] 20 meq PO MOWEFR 04/16/19 04/16/19 History Allergies Allergy/AdvReac Type Severity Reaction Status Date / Time cortisone Allergy Rash/Hives Verified 04/16/19 17:52 morphine Allergy Unknown Verified 04/16/19 17:52 Penicillins Allergy Rash/Hives Verified 04/16/19 17:52 Physical Exam Vitals: Vital Signs Temp Pulse Pulse Pulse Pulse Resp BP 04/17/19 11:49 97.4 F L 64 16 04/17/19 08:00 61 60 73 16 04/17/19 06:07 04/17/19 05:45 04/17/19 04:58 98.0 F 73 16 04/16/19 21:21 97.5 F L 65 16 04/16/19 16:00 56 L 20 136/78 04/16/19 15:38 56 L 20 141/87 04/16/19 15:06 61 60 51 L 04/16/19 14:36 97.4 F L 62 18 189/69 BP BP BP Pulse Ox 04/17/19 11:49 160/52 97 01/06/20 08:00 04/17/19 06:07 96 04/17/19 05:45 220/88 04/17/19 04:58 202/63 90 L 04/16/19 21:21 183/60 93 L 04/16/19 16:00 95 04/16/19 15:38 95 04/16/19 15:06 179/58 185/56 174/55 04/16/19 14:36 97 Intake and Output 04/16/19 04/17/19 04/17/19 22:59 06:59 14:59 Intake Total 590 300 Output Total 1 Balance 590 300 -1 Intake: Oral 590 300 Output: Stool 1 Other: Voiding Method Toilet Toilet Diaper Diaper # Voids 3 5 1 Weight 67.903 kg 54 kg 54 kg Results 04/16/19 15:26 04/16/19 15:26 Cardiac Enzymes 04/16/19 04/16/19 04/16/19 Range/Units 15:26 15:26 22:27 AST 23 (14-36) U/L Troponin I 0.030 0.037 H* (0.000-0.034) ng/mL 04/17/19 Range/Units 03:17 AST (14-36) U/L Troponin I 0.034 (0.000-0.034) ng/mL Coagulation 04/16/19 Range/Units 15:26 PT 10.2 (9.0-12.0) sec APTT 24.6 (22.0-30.0) sec CBC 04/16/19 Range/Units 15:26 WBC 5.3 (3.8-10.6) k/uL RBC 2.96 L (3.80-5.40) m/uL Hgb 9.4 L (11.4-16.0) gm/dL Hct 29.3 L (34.0-46.0) % Plt Count 243 (150-450) k/uL Comprehensive Metabolic Panel 04/16/19 Range/Units 15:26 Sodium 142 (137-145) mmol/L Potassium 4.1 (3.5-5.1) mmol/L Chloride 110 H (98-107) mmol/L Carbon Dioxide 23 (22-30) mmol/L BUN 26 H (7-17) mg/dL Creatinine 1.10 H (0.52-1.04) mg/dL Glucose 89 (74-99) mg/dL Calcium 9.7 (8.4-10.2) mg/dL AST 23 (14-36) U/L ALT 17 (4-34) U/L Alkaline Phosphatase 81 (38-126) U/L Total Protein 6.0 L (6.3-8.2) g/dL Albumin 3.5 (3.5-5.0) g/dL Current Medications Generic Name Dose Route Start Last Admin Trade Name Jeremieq PRN Reason Stop Dose Admin Allopurinol 100 mg 04/17/19 08:00 04/17/19 08:00 Zyloprim PO 100 mg DAILY@0800 [facility] Administration Ascorbic Acid 500 mg 04/17/19 08:00 04/17/19 08:01 Vitamin C PO 500 mg DAILY@0800 [facility] Administration Aspirin 162 mg 04/17/19 08:00 04/17/19 08:01 Aspirin PO 162 mg DAILY@0800 [facility] Administration Atorvastatin Calcium 80 mg 04/16/19 21:00 04/16/19 21:02 Lipitor PO 80 mg HS [facility] Administration Cholecalciferol 2,000 unit 04/16/19 21:00 04/16/19 21:03 Vitamin D3 (25 Mcg = 1000 Iu) PO 2,000 unit HS [facility] Administration Clonidine 0.1 mg 04/16/19 22:00 04/17/19 06:06 Catapres PO 0.1 mg TID [facility] Administration Cyanocobalamin 500 mcg 04/16/19 21:00 04/16/19 21:03 Vitamin B-12 PO 500 mcg HS [facility] Administration Doxazosin Mesylate 4 mg 04/17/19 08:00 04/17/19 06:10 Cardura PO 4 mg DAILY@0800 [facility] Administration Ferrous Sulfate 325 mg 04/16/19 21:00 04/16/19 21:03 Feosol PO 325 mg HS [facility] Administration Hydralazine HCl 100 mg 04/16/19 22:00 04/17/19 06:06 Apresoline PO 100 mg TID [facility] Administration Insulin Aspart 15 unit 04/17/19 07:30 04/17/19 08:01 Novolog Mix 70-30 Vial SQ 15 unit AC-BID [facility] Administration Lorazepam 1 mg 04/16/19 21:00 04/17/19 08:01 Ativan PO 1 mg BID [facility] Administration Nifedipine 90 mg 04/17/19 08:00 04/17/19 08:02 Procardia Xl PO 90 mg DAILY@0800 [facility] Administration Nitroglycerin 1 inch 04/16/19 18:00 04/17/19 12:48 Nitro-Bid Oint TOPICAL 1 inch QID [facility] Administration Pantoprazole Sodium 40 mg 04/16/19 21:00 04/16/19 21:03 Protonix PO 40 mg HS [facility] Administration Potassium Chloride 20 meq 04/17/19 08:00 04/17/19 08:00 K-Dur 20 PO 20 meq MoWeFr@0800 [facility] Administration Torsemide 20 mg 04/17/19 08:00 04/17/19 08:02 Demadex PO 20 mg DAILY@0800 [facility] Administration Intake and Output 04/16/19 04/17/19 04/17/19 22:59 06:59 14:59 Intake Total 590 300 Output Total 1 Balance 590 300 -1 Intake: Oral 590 300 Output: Stool 1 Other: Voiding Method Toilet Toilet Diaper Diaper # Voids 3 5 1 Weight 67.903 kg 54 kg 54 kg Patient Weight 04/18/19 06:59 Weight 54 kg 04/16/19 15:26 04/16/19 15:26
--- NOTE | 2019-04-17 14:59 | P.HPIM ---
History of Present Illness H&P Date: 04/17/19 This is an 84-year-old female patient of Dr. Bill and Dr. Diana with past medical history of coronary artery disease status post CABG in 2011 followed by myocardial infarction, chronic systolic heart failure, chronic kidney disease stage III, diabetes mellitus type 2 insulin requiring, hyperlipidemia, hypertension, cervical stenosis, chronic back pain. Patient's last hospitalization was in November 2018 which time she was treated for dehydration. Patient states that she has had difficulty catching her breath for at least 2 weeks. The first week she had some heaviness in her chest along with the difficulty in breathing. She did have lower extremity edema that is recently decreased. Her states that her blood pressure has been running okay at home if high only a little bit high. Since , patient has been eating a lot of ham and canned soups. She is following with Dr. Williamson for right foot wound. Local wound care is currently in the form of Santyl. Previous echocardiogram reveals EF of 55-60% with moderate concentric left hypertrophy, LA severely dilated greater than 40, moderate aortic stenosis, moderate mitral regurgitation, moderate tricuspid regurgitation, severe pulmonary hypertension. Patient came into [facility] emergency center for evaluation. EKG sinus bradycardia with first degree AV block heart rate 59, T-wave inversion inferior/laterally with evidence of old anterior wall ischemia. Consistent with previous EKG's. No acute changes. Chest xray right perihilar infiltrate, underlying mass not entirely excluded. WBC 5.3, hemoglobin 9.4, platelets 142, potassium 4.1, creatinine 1.1 with a GFR 47, magnesium 2.4, troponin 0.030, 0.037 and 0.034, NT proBNP 5380. She was found to be afebrile, heart rate in the 60s, blood pressure 183/60, pulse ox 95% on room air. Patient was admitted to the [facility] floor and cardiology consult requested. Review of Systems Constitutional: Reports fatigue, Reports weakness, Denies anorexia, Denies chills, Denies fever, Denies poor appetite, Denies weight loss Ears, nose, mouth and throat: Denies dysphagia, Denies nasal congestion, Denies nasal discharge, Denies vertigo Cardiovascular: Reports chest pain, reports decreased exercise tolerance, reports dyspnea on exertion, Denies edema, Denies leg edema, Denies lightheadedness, Denies palpitations, Denies syncope Respiratory: Denies cough, Denies cough with sputum, reports dyspnea, Denies excessive sputum, Denies hemoptysis, Denies home oxygen, Denies wheezing Gastrointestinal: Denies nausea, denies vomiting, Denies abdominal pain, Denies diarrhea, Denies loss of appetite Genitourinary: Denies dysuria, Denies urgency, Denies urinary frequency Musculoskeletal: Reports gait dysfunction, Reports muscle weakness, Denies frequent falls, Denies myalgias Integumentary: Denies pruritus, Denies rash, Denies wounds Neurological: Reports gait dysfunction, Reports weakness, Denies burning pain, Denies change in speech, Denies paresthesias, Denies syncope Psychiatric: Denies anxiety, Denies depression Endocrine: Denies fatigue, Denies weight change Past Medical History Past Medical History: Coronary Artery Disease (CAD), Heart Failure, Diabetes Mellitus, GERD/Reflux, Hyperlipidemia, Hypertension, Myocardial Infarction ([place]), Osteoarthritis (OA) Additional Past Medical History / Comment(s): Hx Mitral regurgitation, anemia, reproductive problems when younger., NECK PAIN. Last Myocardial Infarction Date:: 08/2014 History of Any Multi-Drug Resistant Organisms: None Reported Past Surgical History: Cholecystectomy, Coronary Bypass/CABG, Hysterectomy Additional Past Surgical History / Comment(s): 8x D&C, CABG 7 Blockages, bilateral foot surgery to remove tumors Past Anesthesia/Blood Transfusion Reactions: No Reported Reaction Past Psychological History: No Psychological Hx Reported Additional Psychological History / Comment(s): Pt resides with her spouse. She is independent. She uses a walker for ambulation. Smoking Status: Never smoker Past Alcohol Use History: Occasional Additional Past Alcohol Use History / Comment(s): Patient is and lives with her . Past Drug Use History: None Reported - Past Family History Mother Family Medical History: Cancer, Diabetes Mellitus Additional Family Medical History / Comment(s): Mother at age 84 from Alzheimer's, old age. No coronary artery disease, no diabetes, history of breast cancer. Father Family Medical History: Congestive Heart Failure (CHF) Additional Family Medical History / Comment(s): Father in his early 80s from diabetes, occasions. No coronary artery disease. Brother(s) Family Medical History: Cancer (Patient is lives with her , functionally active denies any need a walker or assistance) Additional Family Medical History / Comment(s): Patient had total of 4 brothers. One at 69 from alcohol abuse. One at age 8 from kidney failure, a third brother has of unknown cause. One brother is alive at age 75 with no major medical problems. Sister(s) Additional Family Medical History / Comment(s): Patient has one sister with Crohn's 1 with irritable bowel syndrome. Patient does not have any children. Medications and Allergies Home Medications Medication Instructions Recorded Confirmed Type Allopurinol 100 mg PO DAILY@0800 03/05/14 04/16/19 History Aspirin 162 mg PO DAILY@0800 03/05/14 04/16/19 History Omeprazole 40 mg PO HS 03/05/14 04/16/19 History Ascorbic Acid [Vitamin C] 500 mg PO DAILY@0800 09/24/14 04/16/19 History Atorvastatin [Lipitor] 80 mg PO HS 09/24/14 04/16/19 History Cholecalciferol [Vitamin D3 (25 2,000 unit PO HS 09/24/14 04/16/19 History Mcg = 1000 Iu)] Ferrous Sulfate [Feosol] 325 mg PO HS 09/24/14 04/16/19 History Nitroglycerin 0.2MG/Hr Patch 1 patch TRANSDERM Q24H PRN 09/24/14 04/16/19 History [Nitro-Dur 0.2MG/Hr Patch] hydrALAZINE HCL [Apresoline] 100 mg PO TID 07/04/17 04/16/19 History Cyanocobalamin [Vitamin B-12] 500 mcg PO HS 04/13/18 04/16/19 History Insulin NPL/Insulin Lispro 15 unit SQ AC-BID 04/13/18 04/16/19 History [humaLOG MIX 75-25 VIAL] Ubidecarenone [Co Q-10] 200 mg PO HS 04/13/18 04/16/19 History LORazepam [Ativan] 1 mg PO BID #6 tab 04/20/18 04/16/19 Rx Aria Green Barley 3 tab PO BID 12/10/18 04/16/19 History Doxazosin [Cardura] 4 mg PO DAILY@0800 12/10/18 04/16/19 History NIFEdipine XL [Procardia XL] 90 mg PO DAILY@0812/10/18 04/16/19 History Torsemide [Demadex] 20 mg PO DAILY@0800 12/10/18 04/16/19 History cloNIDine HCL [Catapres] 0.1 mg PO TID #90 tab 12/12/18 04/16/19 Rx Collagenase [Santyl] 1 applic TOPICAL DAILY 04/16/19 04/16/19 History Furosemide [Lasix] 40 mg PO MOWEFR 04/16/19 04/16/19 History Potassium Chloride ER [K-Dur 20] 20 meq PO MOWEFR 04/16/19 04/16/19 History Allergies Allergy/AdvReac Type Severity Reaction Status Date / Time cortisone Allergy Rash/Hives Verified 04/16/19 17:52 morphine Allergy Unknown Verified 04/16/19 17:52 Penicillins Allergy Rash/Hives Verified 04/16/19 17:52 Physical Exam Vitals: Vital Signs Temp Pulse Pulse Pulse Pulse Resp BP 04/17/19 08:00 61 60 73 16 04/17/19 06:07 04/17/19 05:45 04/17/19 04:58 98.0 F 73 16 04/16/19 21:21 97.5 F L 65 16 04/16/19 16:00 56 L 20 136/78 04/16/19 15:38 56 L 20 141/87 04/16/19 15:06 61 60 51 L 04/16/19 14:36 97.4 F L 62 18 189/69 BP BP BP Pulse Ox 04/17/19 08:00 04/17/19 06:07 96 04/17/19 05:45 220/88 04/17/19 04:58 202/63 90 L 04/16/19 21:21 183/60 93 L 04/16/19 16:00 95 04/16/19 15:38 95 04/16/19 15:06 179/58 185/56 174/55 04/16/19 14:36 97 Intake and Output 04/16/19 04/17/19 04/17/19 22:59 06:59 14:59 Intake Total 590 300 Output Total 1 Balance 590 300 -1 Intake: Oral 590 300 Output: Stool 1 Other: Voiding Method Toilet Toilet Diaper Diaper # Voids 3 5 1 Weight 67.903 kg 54 kg 54 kg Gen: This is an 84-year-old female. She is resting in bed and appears to be comfortable in no acute distress. HEENT: Head is atraumatic, normocephalic. Pupils equal, round. Sclerae is anicteric. NECK: Supple. No JVD. No lymphadenopathy. No thyromegaly. LUNGS: Clear to auscultation. No wheezes or rhonchi. No intercostal retractio ns. HEART: Regular rate and rhythm. Systolic murmur. ABDOMEN: Soft. Bowel sounds are present. No masses. No tenderness. EXTREMITIES: 1+ pedal edema. Dorsalis pedis +1 bilaterally. Wound to the right anterior aspect foot. NEUROLOGICAL: Patient is awake, alert and oriented x3. Cranial nerves 2 through 12 are grossly intact. Results CBC & Chem 7: 04/16/19 15:26 04/16/19 15: Labs: Abnormal Lab Results - Last 24 Hours (Table) 04/16/19 04/16/19 04/16/19 Range/Units 15:26 15:26 20:12 RBC 2.96 L (3.80-5.40) m/uL Hgb 9.4 L (11.4-16.0) gm/dL Hct 29.3 L (34.0-46.0) % Chloride 110 H (98-107) mmol/L BUN 26 H (7-17) mg/dL Creatinine 1.10 H (0.52-1.04) mg/dL POC Glucose (mg/dL) 216 H (75-99) mg/dL Magnesium 2.4 H (1.6-2.3) mg/dL Troponin I (0.000-0.034) ng/mL Total Protein 6.0 L (6.3-8.2) g/dL 04/16/19 04/17/19 Range/Units 22:27 07:14 RBC (3.80-5.40) m/uL Hgb (11.4-16.0) gm/dL Hct (34.0-46.0) % Chloride (98-107) mmol/L BUN (7-17) mg/dL Creatinine (0.52-1.04) mg/dL POC Glucose (mg/dL) 124 H (75-99) mg/dL Magnesium (1.6-2.3) mg/dL Troponin I 0.037 H* (0.000-0.034) ng/mL Total Protein (6.3-8.2) g/dL Thrombosis Risk Factor Assmnt - DVT/VTE Prophylaxis DVT/VTE Prophylaxis: Pharmacologic Prophylaxis ordered - Choose All That Apply Each Factor Represents 1 point: Heart failure (<1month), Swollen legs (current) Each Risk Factor Represents 3 Points: Age 75 years or older Other congenital or acquired thrombophilia - If yes, enter type in comment: No Thrombosis Risk Factor Assessment Total Risk Factor Score: 5 Thrombosis Risk Factor Assessment Level: High Risk Assessment and Plan Plan: 1. Acute on chronic diastolic heart failure. Cardiology consult appreciated. Patient was started on Lasix 40 mg IV twice daily, monitor I&O and daily weights. 2. Hypertension, uncontrolled. Continue clonidine 0.1 mg 3 times daily, Cardura 4 mg daily, hydralazine 100 mg 3 times daily, losartan 25 mg daily, Procardia XL 90 mg daily. 3. Acute kidney injury with chronic kidney disease stage III. Avoid nephrotoxic agents. 4. History of coronary artery disease status post CABG in 2011. Continue aspirin 81 mg daily, Lipitor 80 mg daily, Cozaar 25 mg daily. 5. Valvular heart disease with moderate aortic stenosis, moderate mitral regurgitation, moderate tricuspid regurgitation, severe pulmonary hypertension 6. Hyperlipidemia. Continue Lipitor 80 mg daily. 7. Chronic kidney disease stage III, monitor closely. 8. Diabetes mellitus type 2, insulin requiring, uncontrolled with hypoglycemia. Continue NovoLog 70/30 decreased to 5 units units 2 times daily and NovoLog scale before meals and at bedtime 9. Anemia of chronic disease. Continue ferrous sulfate 325 mg daily 10. Valvular heart disease with moderate aortic stenosis, moderate mitral regurgitation, moderate tricuspid regurgitation, severe pulmonary hypertension 11. Gout, chronic. Continue allopurinol 100 mg daily. 12. Generalized anxiety disorder. Continue Ativan 1 mg twice daily. 13. Gastroesophageal reflux disease and GI prophylaxis. Continue Protonix. 14. DVT prophylaxis. Heparin subcu. Patient will be admitted to the hospital for a minimal of 2 night stay. Discharge plan: Return home most likely, possible need for subacute rehab. PT and OT evaluations requested. Impression and plan of care have been directed as dictated by the signing physician. Talia Schneider nurse practitioner acting as scribe for signing physician.
[2019-04-17] MEDS: FUROSEMIDE 10 MG/ML 4 ML VIAL IV SCH ×2 (15:47→21:26)
[2019-04-17 17:13] LABS: Glucose,Whole Blood 183 mg/dL (75-99)
[2019-04-17] MEDS: INSULIN ASPART (NovoLOG) 100 UNIT/ML VIAL SQ SCH ×2 (17:19→21:19)
[2019-04-17] MEDS: INSULN ASP PRT/INSULIN ASPART 100 UNIT/ML 10 ML VIAL SQ SCH (17:19)
[2019-04-17] MEDS: LOSARTAN 25 MG TAB PO SCH (17:19)
[2019-04-17 19:50] LABS: Glucose,Whole Blood 150 mg/dL (75-99)
[2019-04-17] MEDS: ATORVASTATIN 80 MG TAB PO SCH (21:17)
[2019-04-17] MEDS: CHOLECALCIFEROL 1,000 UNIT TAB PO SCH (21:17)
[2019-04-17] MEDS: HEPARIN SODIUM,PORCINE 5,000 UNIT/ML 1 ML VIAL SQ SCH (21:17)
[2019-04-17] MEDS: CYANOCOBALAMIN 500 MCG TAB PO SCH (21:17)
[2019-04-17] MEDS: FERROUS SULFATE 325 MG TAB PO SCH (21:17)
[2019-04-17] MEDS: PANTOPRAZOLE 40 MG TABLET PO SCH (21:18)
[2019-04-18 02:14] LABS: Glucose,Whole Blood 132 mg/dL (75-99)
[2019-04-18 07:09] LABS: Glucose,Whole Blood 141 mg/dL (75-99)
[2019-04-18] MEDS: INSULIN ASPART (NovoLOG) 100 UNIT/ML VIAL SQ SCH ×4 (07:51→21:56)
[2019-04-18] MEDS: INSULN ASP PRT/INSULIN ASPART 100 UNIT/ML 10 ML VIAL SQ SCH ×2 (07:51→18:14)
[2019-04-18] MEDS: HEPARIN SODIUM,PORCINE 5,000 UNIT/ML 1 ML VIAL SQ SCH ×2 (07:52→21:56)
[2019-04-18] MEDS: ALLOPURINOL 100 MG TAB PO SCH (07:53)
[2019-04-18] MEDS: LORazepam 1 MG TAB PO SCH ×2 (07:53→21:56)
[2019-04-18] MEDS: POTASSIUM CHLORIDE ER 20 MEQ TAB.ER PO SCH (07:53)
[2019-04-18] MEDS: ASPIRIN 81 MG PO SCH (07:53)
[2019-04-18] MEDS: hydrALAZINE HCL 50 MG TAB PO SCH ×3 (07:53→21:57)
[2019-04-18] MEDS: ASCORBIC ACID 500 MG TAB PO SCH (07:53)
[2019-04-18] MEDS: FUROSEMIDE 10 MG/ML 4 ML VIAL IV SCH ×2 (07:53→21:55)
[2019-04-18] MEDS: cloNIDine HCL 0.1 MG TAB PO SCH ×3 (07:53→21:57)
[2019-04-18] MEDS: DOXAZOSIN 4 MG TAB PO SCH (07:55)
[2019-04-18] MEDS: NIFEdipine XL 90 MG TAB.ER.24 PO SCH (07:55)
[2019-04-18] MEDS: LOSARTAN 25 MG TAB PO SCH (08:00)
[2019-04-18 09:25] LABS: Calcium 10.2 mg/dL (8.4-10.2); Potassium 4.2 mmol/L (3.5-5.1)
--- NOTE | 2019-04-18 11:09 | P.PN ---
Subjective Progress Note Date: 04/18/19 Principal diagnosis: Acute exacerbation of diastolic congestive heart failure 84-year-old white female patient, came into the hospital because of progressive shortness of breath over the past 2 weeks pressure when she lays down flat in addition to episodes of chest pain. The patient reports that whenever she lays down flat she became more short of breath and she feels heaviness in her chest. She also has exertional dyspnea. She has known history of coronary artery disease. She has undergone previous bypass surgery in 2011. She is known to have chronic diastolic heart failure. She is known to have diabetes and hyperlipidemia and hypertension and a chronic nonhealing ulcer in the right lower extremity. The patient came into the hospital and the patient was found t o have a proBNP level of 5318. Troponins were 0.033 respectively. The patient's white cell count was at 5.3 with a hemoglobin of 9.4. The patient's chest x-ray showed right perihilar infiltrate and an underlying mass cannot be completely excluded. The EKG showed sinus bradycardia with a first-degree AV block without any significant acute segment ST changes and there is evidence of an old anterior wall ischemia/infarct which is consistent with previous EKGs. The patient has been taken Lasix 40 mg 3 times a week. Aggressive the medication also reviewed. No significant echocardiogram from December 2018 showed a preserved LV function with an EF of around 55-60% along with severely dilated LA and moderate degree of aortic stenosis with a mean gradient of 23 mmHg and moderate MR and severely calcified mitral annulus and mild to moderate mitral stenosis with a gradient of 6 across the valve. The patient has moderate to severe pulmonary hypertension with a PA pressure of around 51. The patient was treated with Lasix. The patient currently receiving Lasix 40 mg every 12 hours. The patient is seen today 04/18/2019 in follow-up on the regular medical floor. She is currently resting quite comfortably in bed. Awake and alert in no acute distress currently on room air and maintaining O2 saturations in the 90s. She's afebrile. Hemodynamically stable. She has been up ambulating in the hallway without any acute distress. Sodium 141. Potassium 4.2. Creatinine 1.25. She is continued on Lasix 40 mg IV push every 12 hours. Heparin for DVT prophylaxis. Objective - Vital Signs Vital signs: Vital Signs Temp 98.4 F 04/18/19 05:00 Pulse 58 L 04/18/19 07:42 Resp 14 04/18/19 07:42 BP 171/48 04/18/19 05:00 Pulse Ox 97 04/18/19 05:44 Intake & Output 04/17/19 04/18/19 04/18/19 18:59 06:59 18:59 Intake Total 1190 Output Total 4 1 1 Balance -4 1189 -1 Weight 54 kg 64.7 kg Intake: Oral 1190 Output: Stool 4 1 1 Other: Voiding Method Toilet Toilet Toilet Diaper Diaper Diaper # Voids 1 5 5 - Exam GENERAL EXAM: Alert, active, very pleasant 84-year-old female patient, on room air comfortable in no apparent distress. HEAD: Normocephalic. EYES: Normal reaction of pupils, equal size. NOSE: Clear with pink turbinates. THROAT: No erythema or exudates. NECK: No masses, no JVD. CHEST: No chest wall deformity. LUNGS: Equal air entry with faint crackles in the posterior bases. CVS: S1 and S2 normal with an audible murmur, regular rhythm. ABDOMEN: No hepatosplenomegaly, normal bowel sounds, no guarding or rigidity. SPINE: No scoliosis or deformity SKIN: No rashes CENTRAL NERVOUS SYSTEM: No focal deficits, tone is normal in all 4 extremities. EXTREMITIES: There is no peripheral edema. No clubbing, no cyanosis. Peripheral pulses are intact. - Labs CBC & Chem 7: 04/16/19 15:26 04/18/19 08:16 Labs: Abnormal Lab Results - Last 24 Hours (Table) 04/17/19 04/17/19 04/17/19 Range/Units 11:35 12:03 12:21 BUN (7-17) mg/dL Creatinine (0.52-1.04) mg/dL Glucose (74-99) mg/dL POC Glucose (mg/dL) 48 L 55 L 65 L (75-99) mg/dL 04/17/19 04/17/19 04/18/19 Range/Units 17:10 19:48 02:11 BUN (7-17) mg/dL Creatinine (0.52-1.04) mg/dL Glucose (74-99) mg/dL POC Glucose (mg/dL) 183 H 150 H 132 H (75-99) mg/dL 04/18/19 04/18/19 Range/Units 07:07 08:16 BUN 29 H (7-17) mg/dL Creatinine 1.25 H (0.52-1.04) mg/dL Glucose 145 H (74-99) mg/dL POC Glucose (mg/dL) 141 H (75-99) mg/dL Assessment and Plan Assessment: 1 Acute exacerbation of chronic CHF with diastolic heart failure. The patient has moderate concentric LVH with preserved LV function with an EF of around 55- 60%. She does have moderate degree of aortic stenosis with severe mitral annular calcification and moderate MR degree of pulmonary hypertension with a PA pressure of 51. She has exertional dyspnea and orthopnea and elevated proBNP level or consistent with CHF 2 CAD with previous coronary artery disease 3 Mild troponin leak without any acute ischemic changes on EKG and no evidence of any non-STEMI at this point in time 4 Right perihilar opacity, mass cannot be completely excluded. Could be related to enlarged pulmonary arteries as the patient has moderate to severe pulmonary hypertension 5 hypertension 6 Hyperlipidemia 7 Diabetes mellitus 8 Chronic normocytic anemia Plan The patient was seen and evaluated by Dr. Arteaga. She is quite stable from the pulmonary standpoint. Continued on IV diuretics. We will repeat the chest x-ray in regards to the right perihilar infiltrates questionable for pneumonia versus bronchitis. Suspect secondary to pulmonary hypertension. Underlying mass is not totally excluded. We will continue to follow and make further recommendations based on her clinical status. I, the cosigning physician, performed a history & physical examination of the patient. Lungs sounds crackles in the bilateral posterior bases. Maintaining good O2 saturations in the 90s on room air. I discussed the assessment and plan of care with my nurse practitioner, Judi Dowell. I attest to the above note as dictated by her.
[2019-04-18 11:53] LABS: Glucose,Whole Blood 106 mg/dL (75-99)
--- NOTE | 2019-04-18 13:46 | P.CNPUL ---
History of Present Illness Consult date: 04/17/19 Reason for consult: dyspnea History of present illness: 84-year-old white female patient, came into the hospital because of progressive shortness of breath over the past 2 weeks pressure when she lays down flat in addition to episodes of chest pain. The patient reports that whenever she lays down flat she became more short of breath and she feels heaviness in her chest. She also has exertional dyspnea. She has known history of coronary artery disease. She has undergone previous bypass surgery in 2011. She is known to have chronic diastolic heart failure. She is known to have diabetes and hyperlipidemia and hypertension and a chronic nonhealing ulcer in the right lower extremity. The patient came into the hospital and the patient was found to have a proBNP level of 5318. Troponins were 0.033 respectively. The patient's white cell count was at 5.3 with a hemoglobin of 9.4. The patient's chest x-ray showed right perihilar infiltrate and an underlying mass cannot be completely excluded. The EKG showed sinus bradycardia with a first-degree AV block without any significant acute segment ST changes and there is evidence of an old anterior wall ischemia/infarct which is consistent with previous EKGs. The patient has been taken Lasix 40 mg 3 times a week. Aggressive the medication also reviewed. No significant echocardiogram from December 2018 showed a preserved LV function with an EF of around 55-60% along with severely dilated LA and moderate degree of aortic stenosis with a mean gradient of 23 mmHg and moderate MR and severely calcified mitral annulus and mild to moderate mitral stenosis with a gradient of 6 across the valve. The patient has moderate to severe pulmonary hypertension with a PA pressure of around 51. The patient was treated with Lasix. The patient currently receiving Lasix 40 mg every 12 hours. Review of Systems Constitutional: Denies chills, Denies fever, Denies lethargy, Denies malaise, Denies poor appetite, Denies weakness, Denies weight loss Eyes: denies decreased vision, denies diplopia, denies discharge, denies pain Ears: deny: decreased hearing Ears, nose, mouth and throat: Denies dental pain, Denies headache, Denies nasal discharge, Denies nose pain Cardiovascular: Denies chest pain, decreased exercise tolerance, Denies edema, Denies high blood pressure, Denies irregular heart beat, Denies palpitations, Denies paroxysmal nocturnal dyspnea, Denies rapid heart beat, Denies shortness of breath Respiratory: Denies congestion, Denies cough, Denies cough with sputum, Denies dyspnea, Denies home oxygen, Denies wheezing, admits to have exertional dyspnea and the patient has been having worsening shortness of breath whenever she lays down flat. Gastrointestinal: Denies abdominal pain, Denies change in bowel habits, Denies coffee ground emesis, Denies early satiety, Denies excessive gas, Denies heartburn, Denies hematemesis, Denies hematochezia, Denies loss of appetite, Denies nausea, Denies vomiting Genitourinary: Denies dysuria, Denies flank pain, Denies kidney stones, Denies menorrhagia, Denies urgency, Denies urinary frequency Musculoskeletal: Denies gait dysfunction, Denies limitation of motion, Denies morning stiffness, Denies muscle cramps Integumentary: Denies rash, Denies wounds, Denies brittle nails, Denies change in hair/nails, Denies darkening of skin Neurological: Denies balance difficulties, Denies change in speech, Denies double vision, Denies gait dysfunction, Denies loss of vision, Denies motor disturbance, Denies numbness, Denies paralysis, Denies paresthesias, Denies seizures Psychiatric: Denies anxiety, Denies depression Endocrine: Denies excessive sweating, Denies excessive thirst, Denies high blood sugars, Denies palpitations Hematologic/Lymphatic: Denies easy bruising, Denies lymphadenopathy Past Medical History Past Medical History: Coronary Artery Disease (CAD), Heart Failure, Diabetes Mellitus, GERD/Reflux, Hyperlipidemia, Hypertension, Myocardial Infarction (VT), Osteoarthritis (OA) Additional Past Medical History / Comment(s): History of valvular heart disease with aortic stenosis, moderate mitral regurgitation stenosis, coronary artery disease with previous VT and previous bypass surgery, chronic anemia, chronic osteoarthritis and neck pain, diabetes mellitus, hypertension and hyperlipidemia, 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 She is independent. She uses a walker for ambulation. Smoking Status: Never smoker Past Alcohol Use History: Occasional Additional Past Alcohol Use History / Comment(s): Patient is and lives with her . Past Drug Use History: None Reported - Past Family History Brother(s) Family Medical History: Cancer (Patient is lives with her , functionally active denies any need a walker or assistance) Father Family Medical History: Congestive Heart Failure (CHF) Mother Family Medical History: Cancer, Diabetes Mellitus Additional Family Medical History / Comment(s): Mother had breast cancer. Sister(s) Additional Family Medical History / Comment(s): Patient has one sister with Crohn's 1 with irritable bowel syndrome. Patient does not have any children. Medications and Allergies Home Medications Medication Instructions Recorded Confirmed Type Allopurinol 100 mg PO DAILY@0800 03/05/14 04/16/19 History Aspirin 162 mg PO DAILY@0800 03/05/14 04/16/19 History Omeprazole 40 mg PO HS 03/05/14 04/16/19 History Ascorbic Acid [Vitamin C] 500 mg PO DAILY@0800 09/24/14 04/16/19 History Atorvastatin [Lipitor] 80 mg PO HS 09/24/14 04/16/19 History Cholecalciferol [Vitamin D3 (25 2,000 unit PO HS 09/24/14 04/16/19 History Mcg = 1000 Iu)] Ferrous Sulfate [Feosol] 325 mg PO HS 09/24/14 04/16/19 History Nitroglycerin 0.2MG/Hr Patch 1 patch TRANSDERM Q24H PRN 09/24/14 04/16/19 History [Nitro-Dur 0.2MG/Hr Patch] hydrALAZINE HCL [Apresoline] 100 mg PO TID 07/04/17 04/16/19 History Cyanocobalamin [Vitamin B-12] 500 mcg PO HS 04/13/18 04/16/19 History Insulin NPL/Insulin Lispro 15 unit SQ AC-BID 04/13/18 04/16/19 History [humaLOG MIX 75-25 VIAL] Ubidecarenone [Co Q-10] 200 mg PO HS 04/13/18 04/16/19 History LORazepam [Ativan] 1 mg PO BID #6 tab 04/20/18 04/16/19 Rx Aria Green Barley 3 tab PO BID 12/10/18 04/16/19 History Doxazosin [Cardura] 4 mg PO DAILY@0800 12/10/18 04/16/19 History NIFEdipine XL [Procardia XL] 90 mg PO DAILY@0800 12/10/18 04/16/19 History Torsemide [Demadex] 20 mg PO DAILY@0812/10/18 04/16/19 History cloNIDine HCL [Catapres] 0.1 mg PO TID #90 tab 12/12/18 04/16/19 Rx Collagenase [Santyl] 1 applic TOPICAL DAILY 04/16/19 04/16/19 History Furosemide [Lasix] 40 mg PO MOWEFR 04/16/19 04/16/19 History Potassium Chloride ER [K-Dur 20] 20 meq PO MOWEFR 04/16/19 04/16/19 History Allergies Allergy/AdvReac Type Severity Reaction Status Date / Time cortisone Allergy Rash/Hives Verified 04/16/19 17:52 morphine Allergy Unknown Verified 04/16/19 17:52 Penicillins Allergy Rash/Hives Verified 04/16/19 17:52 Physical Exam - Constitutional General appearance: cooperative, no acute distress, obese - EENT Eyes: anicteric sclerae, PERRLA, normal appearance ENT: hearing grossly normal - Neck Neck: no lymphadenopathy, normal ROM, no other, no rigidity, no stridor, no thyromegaly - Respiratory Respiratory: bilateral: CTA, negative: diminished, dullness, rales, rhonchi - Cardiovascular Rhythm: regular Heart sounds: normal: S1, S2 Abnormal Heart Sounds: 3+ systolic murmur, no diastolic murmur, no rub, no S3 Gallop, no S4 Gallop, no click, no other - Gastrointestinal General gastrointestinal: normal bowel sounds, soft - Integumentary Integumentary: no rash - Neurologic Neurologic: CNII-XII intact - Musculoskeletal Musculoskeletal: gait normal, strength equal bilaterally - Psychiatric Psychiatric: A&O x's 3, appropriate affect Results - Laboratory Findings CBC and BMP: 04/16/19 15:26 04/18/19 08:16 - Diagnostic Findings Chest x-ray: image reviewed Assessment and Plan Plan: 1 CHF with secondary shortness of breath. The patient has an acute exacerbation of chronic CHF with diastolic heart failure. The patient has moderate concentric LVH with preserved LV function with an EF of around 55-60%. She does have moderate degree of aortic stenosis with severe mitral annular calcification and moderate MR degree of pulmonary hypertension with a PA pressure of 51. She has exertional dyspnea and orthopnea and elevated proBNP level or consistent with CHF 2 CAD with previous coronary artery disease 3 mild troponin leak without any acute ischemic changes on EKG and no evidence of any non-STEMI at this point in time 4 right perihilar opacity, mass cannot be completely excluded. Could be related to enlarged pulmonary arteries as the patient has moderate to severe pulmonary hypertension 5 hypertension 6 hyperlipidemia 7 diabetes mellitus 8 chronic normocytic anemia Plan IV Lasix 40 mg every 12 hours Monitor urine output and electrolytes Cardiology consultation, consider EMILY Clinically the patient is already improving with the diuretics and she is feeling better. I will stay the course and continue the same treatment. We'll follow
--- NOTE | 2019-04-18 14:11 | P.PN ---
Subjective HISTORY OF PRESENTING ILLNESS This is a pleasant 84-year-old female past medical history significant for an area artery disease status post bypass grafting in 2012, hypertension, diabetes mellitus, chronic diastolic heart failure, dyslipidemia and nonhealing ulcer on the right lower extremity. She follows in the office with Dr. Harshil cruz. She was initiated on IV lasix yesterday. She is incontinent and difficult to document accurate output. Overall she is feeling better, but not quite back to baseline. She did sleep more comfortably last night with no significant orthopnea or PND. She denies chest pain, dizziness or palpitations. Blood pressure 147/57 heart rate 67 afebrile and maintaining oxygen saturation on room air. Laboratory data reviewed, sodium 141, potassium 4.2, creatinine 1.25. PHYSICAL EXAMINATION CONSTITUTIONAL: No apparent distress. HEENT: Head is normocephalic. Pupils are equal, round. Sclerae anicteric. Mucous membranes of the mouth are moist. No JVD. No carotid bruit. CHEST EXAMINATION: Faint bibasilar rales. No chest wall tenderness is noted on palpation or with deep breathing. HEART EXAMINATION: Regular rate and rhythm. S1, S2 heard. Holosystolic murmur at all listening points, no gallops or rub. EXTREMITIES: 1+ peripheral pulses, trace bilateral lower extremity pitting edema, right lower extremity dressing in place and no calf tenderness. ASSESSMENT Acute on chronic diastolic Coronary artery disease status post bypass grafting Hypertension, uncontrolled Valvular heart disease Dyslipidemia Diabetes mellitus Chronic kidney disease, GFR 47. Stage IIIa PLAN Continue current medical regimen with ongoing diuresis for another 24 hours. Follow renal function and electrolytes in the morning. Advised the patient that once she is feeling better and discharged home a EMILY with Dr. Diana as an outpatient will be considered. Further recommendations to follow based upon clinical course. Nurse Practitioner note has been reviewed, I agree with a documented findings and plan of care. Patient was seen and examined. Objective - Vital Signs Vital signs: Vital Signs Temp 97.3 F L 04/18/19 11:45 Pulse 67 04/18/19 11:45 Resp 16 04/18/19 11:45 BP 147/57 04/18/19 11:45 Pulse Ox 96 04/18/19 11:45 Intake & Output 04/17/19 04/18/19 04/18/19 18:59 06:59 18:59 Intake Total 1190 Output Total 4 1 1 Balance -4 1189 -1 Weight 54 kg 64.7 kg Intake: Oral 1190 Output: Stool 4 1 1 Other: Voiding Method Toilet Toilet Toilet Diaper Diaper Diaper # Voids 1 5 1 - Labs CBC & Chem 7: 04/16/19 15:26 04/18/19 08:16 Labs: Abnormal Lab Results - Last 24 Hours (Table) 04/17/19 04/17/19 04/18/19 Range/Units 17:10 19:48 02:11 BUN (7-17) mg/dL Creatinine (0.52-1.04) mg/dL Glucose (74-99) mg/dL POC Glucose (mg/dL) 183 H 150 H 132 H (75-99) mg/dL 04/18/19 04/18/19 04/18/19 Range/Units 07:07 08:16 11:52 BUN 29 H (7-17) mg/dL Creatinine 1.25 H (0.52-1.04) mg/dL Glucose 145 H (74-99) mg/dL POC Glucose (mg/dL) 141 H 106 H (75-99) mg/dL
--- NOTE | 2019-04-18 15:17 | P.PN ---
Subjective Progress Note Date: 04/18/19 This is an 84-year-old female patient of Dr. iBll and Dr. Diana with past medical history of coronary artery disease status post CABG in 2011 followed by myocardial infarction, chronic systolic heart failure, chronic kidney disease stage III, diabetes mellitus type 2 insulin requiring, hy perlipidemia, hypertension, cervical stenosis, chronic back pain. Patient's last hospitalization was in November 2018 which time she was treated for dehydration. Patient states that she has had difficulty catching her breath for at least 2 weeks. The first week she had some heaviness in her chest along with the difficulty in breathing. She did have lower extremity edema that is recently decreased. Her states that her blood pressure has been running okay at home if high only a little bit high. Since , patient has been eating a lot of ham and canned soups. She is following with Dr. Williamson for right foot wound. Local wound care is currently in the form of Santyl. Previ ous echocardiogram reveals EF of 55-60% with moderate concentric left hypertrophy, LA severely dilated greater than 40, moderate aortic stenosis, moderate mitral regurgitation, moderate tricuspid regurgitation, severe pulmonary hypertension. Patient came into [facility] emergency center for evaluation. EKG sinus bradycardia with first degree AV block heart rate 59, T-wave inversion inferior/laterally with evidence of old anterior wall ischemia. Consistent with previous EKG's. No acute changes. Chest xray right perihilar infiltrate, underlying mass not entirely excluded. WBC 5.3, hemoglobin 9.4, platelets 142, potassium 4.1, creatinine 1.1 with a GFR 47, magnesium 2.4, troponin 0.030, 0.037 and 0.034, NT proBNP 5380. She was found to be afebrile, heart rate in the 60s, blood pressure 183/60, pulse ox 95% on room air. Patient was admitted to the [facility] floor and cardiology consult requested. 04/18: Patient is followed by both pulmonary medicine and cardiology. Cardiology is planning for EMILY as an outpatient with Dr. Diana regarding valvular heart disease. Patient has been afebrile, heart rate 67, blood pressure 147/57, pulse ox 96% on room air. Repeat blood work reveals BUN of 29 creatinine 1.25, blood sugars run between 106 and 145. The patient states that she slept well during the night. She states that she was able to ambulate in the hallway with physical therapy. She denies any chest pain or lightheadedness. Physical therapy has recommended home. Patient has had bradycardia in the past and cardiac monitoring will be added. Continue IV Lasix for another 24 hours and plan for discharge tomorrow. Review of Systems Constitutional: Denies fatigue, denies weakness, Denies anorexia, Denies chills, Denies fever, Denies poor appetite, Denies weight loss Ears, nose, mouth and throat: Denies dysphagia, Denies nasal congestion, Denies nasal discharge, Denies vertigo Cardiovascular: Denies chest pain, reports decreased exercise tolerance, reports dyspnea on exertion, Denies edema, Denies leg edema, Denies lightheadedness, Denies palpitations, Denies syncope Respiratory: Denies cough, Denies cough with sputum, denies dyspnea, Denies excessive sputum, Denies hemoptysis, Denies home oxygen, Denies wheezing Gastrointestinal: Denies nausea, denies vomiting, Denies abdominal pain, Denies diarrhea, Denies loss of appetite Genitourinary: Denies dysuria, Denies urgency, Denies urinary frequency Musculoskeletal: Reports gait dysfunction, Reports muscle weakness, Denies frequent falls, Denies myalgias Integumentary: Denies pruritus, Denies rash, Denies wounds Neurological: Reports gait dysfunction, Reports weakness, Denies burning pain, Denies change in speech, Denies paresthesias, Denies syncope Psychiatric: Denies anxiety, Denies depression Endocrine: Denies fatigue, Denies weight change Objective - Vital Signs Vital signs: Vital Signs Temp 97.3 F L 04/18/19 11:45 Pulse 67 04/18/19 11:45 Resp 16 04/18/19 11:45 BP 147/57 04/18/19 11:45 Pulse Ox 96 04/18/19 11:45 Intake & Output 04/17/19 04/18/19 04/18/19 18:59 06:59 18:59 Intake Total 1190 Output Total 4 1 1 Balance -4 1189 -1 Weight 54 kg 64.7 kg Intake: Oral 1190 Output: Stool 4 1 1 Other: Voiding Method Toilet Toilet Toilet Diaper Diaper Diaper # Voids 1 5 1 - Exam Gen: This is an 84-year-old female. She is resting in bed and appears to be comfortable in no acute distress. HEENT: Head is atraumatic, normocephalic. Pupils equal, round. Sclerae is anicteric. NECK: Supple. No JVD. No lymphadenopathy. No thyromegaly. LUNGS: Clear to auscultation. No wheezes or rhonchi. No intercostal retr actions. HEART: Regular rate and rhythm. Systolic murmur. ABDOMEN: Soft. Bowel sounds are present. No masses. No tenderness. EXTREMITIES: 1+ pedal edema. Dorsalis pedis +1 bilaterally. Wound to the right anterior aspect foot. NEUROLOGICAL: Patient is awake, alert and oriented x3. Cranial nerves 2 through 12 are grossly intact. - Labs CBC & Chem 7: 04/16/19 15:26 04/18/19 08:16 Labs: Abnormal Lab Results - Last 24 Hours (Table) 04/17/19 04/17/19 04/18/19 Range/Units 17:10 19:48 02:11 BUN (7-17) mg/dL Creatinine (0.52-1.04) mg/dL Glucose (74-99) mg/dL POC Glucose (mg/dL) 183 H 150 H 132 H (75-99) mg/dL 04/18/19 04/18/19 04/18/19 Range/Units 07:07 08:16 11:52 BUN 29 H (7-17) mg/dL Creatinine 1.25 H (0.52-1.04) mg/dL Glucose 145 H (74-99) mg/dL POC Glucose (mg/dL) 141 H 106 H (75-99) mg/dL Assessment and Plan Plan: 1. Acute on chronic diastolic heart failure. Cardiology consult appreciated. Patient was started on Lasix 40 mg IV twice daily, monitor I&O and daily weights. Continue IV Lasix for 1 more day. 2. Hypertension, uncontrolled. Continue clonidine 0.1 mg 3 times daily, Cardura 4 mg daily, hydralazine 100 mg 3 times daily, losartan 25 mg daily, Procardia XL 90 mg daily. 3. Chronic kidney disease stage III. Avoid nephrotoxic agents. 4. History of coronary artery disease status post CABG in 2011. Continue aspirin 81 mg daily, Lipitor 80 mg daily, Cozaar 25 mg daily. 5. Valvular heart disease with moderate aortic stenosis, moderate mitral regurgitation, moderate tricuspid regurgitation, severe pulmonary hypertension 6. Hyperlipidemia. Continue Lipitor 80 mg daily. 7. Chronic kidney disease stage III, monitor closely. 8. Diabetes mellitus type 2, insulin requiring, uncontrolled with hypoglycemia. Continue NovoLog 70/30 decreased to 5 units units 2 times daily and NovoLog scale before meals and at bedtime 9. Anemia of chronic disease. Continue ferrous sulfate 325 mg daily 10. Valvular heart disease with moderate aortic stenosis, moderate mitral r egurgitation, moderate tricuspid regurgitation, severe pulmonary hypertension 11. Gout, chronic. Continue allopurinol 100 mg daily. 12. Generalized anxiety disorder. Continue Ativan 1 mg twice daily. 13. Gastroesophageal reflux disease and GI prophylaxis. Continue Protonix. 14. DVT prophylaxis. Heparin subcu. 15. Right perihilar infiltrate, underlying mass not entirely excluded. Consult pulmonary medicine appreciated. Patient will need outpatient follow-up. Discharge plan: Home on Wednesday. Impression and plan of care have been directed as dictated by the signing physician. Talia Schneider nurse practitioner acting as scribe for signing physician.
[2019-04-18 17:10] LABS: Glucose,Whole Blood 170 mg/dL (75-99)
[2019-04-18 20:44] LABS: Glucose,Whole Blood 53 mg/dL (75-99)
[2019-04-18 21:05] LABS: Glucose,Whole Blood 51 mg/dL (75-99)
[2019-04-18 21:07] LABS: Glucose,Whole Blood 61 mg/dL (75-99)
[2019-04-18 21:42] LABS: Glucose,Whole Blood 122 mg/dL (75-99)
[2019-04-18] MEDS: CYANOCOBALAMIN 500 MCG TAB PO SCH (21:55)
[2019-04-18] MEDS: FERROUS SULFATE 325 MG TAB PO SCH (21:55)
[2019-04-18] MEDS: CHOLECALCIFEROL 1,000 UNIT TAB PO SCH (21:55)
[2019-04-18] MEDS: ATORVASTATIN 80 MG TAB PO SCH (21:55)
[2019-04-18] MEDS: PANTOPRAZOLE 40 MG TABLET PO SCH (21:56)
[2019-04-19 02:22] LABS: Glucose,Whole Blood 165 mg/dL (75-99)
[2019-04-19 06:51] LABS: Glucose,Whole Blood 137 mg/dL (75-99)
[2019-04-19 07:55] LABS: Calcium 9.7 mg/dL (8.4-10.2)
--- NOTE | 2019-04-19 08:55 | XR ---
EXAMINATION TYPE: XR chest 2V DATE OF EXAM: 04/19/2019 COMPARISON: 04/16/2019 HISTORY: 84-year-old female follow-up after diuresis, shortness of breath TECHNIQUE: Frontal and lateral views FINDINGS: Leftward patient rotation alters the normal cardiomediastinal contours. Median sternotomy wires are p resent with post-CABG clips in the mediastinum. Heart remains mildly enlarged. Diffuse interstitial d ensities persist. No consolidation or pleural effusion seen. IMPRESSION: Overall stable exam with mild cardiomegaly and diffuse interstitial changes. Possible persistent pulm onary vascular congestion. Bronchitis, asthma, or atypical pneumonias would be alternative considerat ions.
[2019-04-19] MEDS: INSULIN ASPART (NovoLOG) 100 UNIT/ML VIAL SQ SCH ×4 (09:09→21:28)
[2019-04-19] MEDS: INSULN ASP PRT/INSULIN ASPART 100 UNIT/ML 10 ML VIAL SQ SCH ×2 (09:09→17:21)
[2019-04-19] MEDS: LORazepam 1 MG TAB PO SCH ×2 (09:10→21:27)
[2019-04-19] MEDS: ASCORBIC ACID 500 MG TAB PO SCH (09:10)
[2019-04-19] MEDS: HEPARIN SODIUM,PORCINE 5,000 UNIT/ML 1 ML VIAL SQ SCH ×2 (09:10→21:28)
[2019-04-19] MEDS: ALLOPURINOL 100 MG TAB PO SCH (09:11)
[2019-04-19] MEDS: cloNIDine HCL 0.1 MG TAB PO SCH (09:11)
[2019-04-19] MEDS: hydrALAZINE HCL 50 MG TAB PO SCH ×3 (09:11→21:28)
[2019-04-19] MEDS: NIFEdipine XL 90 MG TAB.ER.24 PO SCH (09:12)
[2019-04-19] MEDS: FUROSEMIDE 10 MG/ML 4 ML VIAL IV SCH (09:12)
[2019-04-19] MEDS: DOXAZOSIN 4 MG TAB PO SCH (09:12)
[2019-04-19] MEDS: LOSARTAN 25 MG TAB PO SCH (09:12)
[2019-04-19] MEDS: ASPIRIN 81 MG PO SCH (09:19)
[2019-04-19 11:57] LABS: Glucose,Whole Blood 155 mg/dL (75-99)
[2019-04-19 12:13] VITALS: RESP 16
--- NOTE | 2019-04-19 12:28 | P.PN ---
Subjective Progress Note Date: 04/19/19 Principal diagnosis: Acute exacerbation of diastolic congestive heart failure 84-year-old white female patient, came into the hospital because of progressive shortness of breath over the past 2 weeks pressure when she lays down flat in addition to episodes of chest pain. The patient reports that whenever she lays down flat she became more short of breath and she feels heaviness in her chest. She also has exertional dyspnea. She has known history of coronary artery disease. She has undergone previous bypass surgery in 2011. She is known to have chronic diastolic heart failure. She is known to have diabetes and hyperlipidemia and hypertension and a chronic nonhealing ulcer in the right lower extremity. The patient came into the hospital and the patient was found t o have a proBNP level of 5318. Troponins were 0.033 respectively. The patient's white cell count was at 5.3 with a hemoglobin of 9.4. The patient's chest x-ray showed right perihilar infiltrate and an underlying mass cannot be completely excluded. The EKG showed sinus bradycardia with a first-degree AV block without any significant acute segment ST changes and there is evidence of an old anterior wall ischemia/infarct which is consistent with previous EKGs. The patient has been taken Lasix 40 mg 3 times a week. Aggressive the medication also reviewed. No significant echocardiogram from December 2018 showed a preserved LV function with an EF of around 55-60% along with severely dilated LA and moderate degree of aortic stenosis with a mean gradient of 23 mmHg and moderate MR and severely calcified mitral annulus and mild to moderate mitral stenosis with a gradient of 6 across the valve. The patient has moderate to severe pulmonary hypertension with a PA pressure of around 51. The patient was treated with Lasix. The patient currently receiving Lasix 40 mg every 12 hours. The patient is seen today 04/18/2019 in follow-up on the regular medical floor. She is currently resting quite comfortably in bed. Awake and alert in no acute distress currently on room air and maintaining O2 saturations in the 90s. She's afebrile. Hemodynamically stable. She has been up ambulating in the hallway without any acute distress. Sodium 141. Potassium 4.2. Creatinine 1.25. She is continued on Lasix 40 mg IV push every 12 hours. Heparin for DVT prophylaxis. The patient is seen today 04/19/2019 in follow-up on the regular medical floor. She is sitting up at the bedside. Awake and alert in no acute distress. Her chest x-ray shows stable findings with mild pulmonary vascular congestion. She is maintaining good O2 saturations in the mid 90s on room air. No worsening vinicius rtness of breath, cough or congestion. She is continued on IV diuretics. Sodium 140. Potassium 4.0. Creatinine 1.39. Objective - Vital Signs Vital signs: Vital Signs Temp 97.6 F 04/19/19 12:12 Pulse 46 L 04/19/19 12:12 Resp 16 04/19/19 12:12 BP 158/68 04/19/19 12:12 Pulse Ox 94 L 04/19/19 12:12 Intake & Output 04/18/19 04/19/19 04/19/19 18:59 06:59 18:59 Output Total 2 Balance -2 Weight 63.548 kg Output: Stool 2 Other: Voiding Method Toilet Toilet Toilet Diaper Diaper Diaper # Voids 1 2 - Exam GENERAL EXAM: Alert, active, very pleasant 84-year-old female patient, on room air comfortable in no apparent distress. HEAD: Normocephalic. EYES: Normal reaction of pupils, equal size. NOSE: Clear with pink turbinates. THROAT: No erythema or exudates. NECK: No masses, no JVD. CHEST: No chest wall deformity. LUNGS: Equal air entry with faint crackles in the posterior bases. CVS: S1 and S2 normal with an audible murmur, regular rhythm. ABDOMEN: No hepatosplenomegaly, normal bowel sounds, no guarding or rigidity. SPINE: No scoliosis or deformity SKIN: No rashes CENTRAL NERVOUS SYSTEM: No focal deficits, tone is normal in all 4 extremities. EXTREMITIES: There is no peripheral edema. No clubbing, no cyanosis. Peripheral pulses are intact. - Labs CBC & Chem 7: 04/16/19 15:26 04/19/19 06:57 Labs: Abnormal Lab Results - Last 24 Hours (Table) 04/18/19 04/18/19 04/18/19 Range/Units 17:09 20:42 21:02 BUN (7-17) mg/dL Creatinine (0.52-1.04) mg/dL Glucose (74-99) mg/dL POC Glucose (mg/dL) 170 H 53 L 51 L (75-99) mg/dL 04/18/19 04/18/19 04/19/19 Range/Units 21:05 21:40 02:20 BUN (7-17) mg/dL Creatinine (0.52-1.04) mg/dL Glucose (74-99) mg/dL POC Glucose (mg/dL) 61 L 122 H 165 H (75-99) mg/dL 04/19/19 04/19/19 04/19/19 Range/Units 06:50 06:57 11:55 BUN 32 H (7-17) mg/dL Creatinine 1.39 H (0.52-1.04) mg/dL Glucose 124 H (74-99) mg/dL POC Glucose (mg/dL) 137 H 155 H (75-99) mg/dL Assessment and Plan Assessment: 1 Acute exacerbation of chronic CHF with diastolic heart failure. The patient has moderate concentric LVH with preserved LV function with an EF of around 55- 60%. She does have moderate degree of aortic stenosis with severe mitral annular calcification and moderate MR degree of pulmonary hypertension with a PA pressure of 51. She has exertional dyspnea and orthopnea and elevated proBNP level or consistent with CHF 2 CAD with previous coronary artery disease 3 Mild troponin leak without any acute ischemic changes on EKG and no evidence of any non-STEMI at this point in time 4 Right perihilar opacity, mass cannot be completely excluded. Could be related to enlarged pulmonary arteries as the patient has moderate to severe pulmonary hypertension 5 hypertension 6 Hyperlipidemia 7 Diabetes mellitus 8 Chronic normocytic anemia Plan The patient was seen and evaluated by Dr. Arteaga. Follow-up chest x-ray reviewed. She is quite stable from the pulmonary standpoint. Psoas some mild pulmonary vascular congestion. Remains on IV diuretics per cardiology. Possible EMILY in the outpatient setting. We'll see her on an as-needed basis. I, the cosigning physician, performed a history & physical examination of the patient. Lungs sounds crackles in the bilateral posterior bases. Maintaining good O2 saturations in the 90s on room air. I discussed the assessment and plan of care with my nurse practitioner, Judi Dowell. I attest to the above note as dictated by her.
[2019-04-19] MEDS: SPIRONOLACTONE 25 MG TAB PO SCH (12:55)
--- NOTE | 2019-04-19 14:54 | P.PN ---
Subjective Progress Note Date: 04/19/19 This is an 84-year-old female patient of Dr. Bill and Dr. Diana with past medical history of coronary artery disease status post CABG in 2011 followed by myocardial infarction, chronic systolic heart failure, chronic kidney disease stage III, diabetes mellitus type 2 insulin requiring, hy perlipidemia, hypertension, cervical stenosis, chronic back pain. Patient's last hospitalization was in November 2018 which time she was treated for dehydration. Patient states that she has had difficulty catching her breath for at least 2 weeks. The first week she had some heaviness in her chest along with the difficulty in breathing. She did have lower extremity edema that is recently decreased. Her states that her blood pressure has been running okay at home if high only a little bit high. Since , patient has been eating a lot of ham and canned soups. She is following with Dr. Williamson for right foot wound. Local wound care is currently in the form of Santyl. Previ ous echocardiogram reveals EF of 55-60% with moderate concentric left hypertrophy, LA severely dilated greater than 40, moderate aortic stenosis, moderate mitral regurgitation, moderate tricuspid regurgitation, severe pulmonary hypertension. Patient came into [facility] emergency center for evaluation. EKG sinus bradycardia with first degree AV block heart rate 59, T-wave inversion inferior/laterally with evidence of old anterior wall ischemia. Consistent with previous EKG's. No acute changes. Chest xray right perihilar infiltrate, underlying mass not entirely excluded. WBC 5.3, hemoglobin 9.4, platelets 142, potassium 4.1, creatinine 1.1 with a GFR 47, magnesium 2.4, troponin 0.030, 0.037 and 0.034, NT proBNP 5380. She was found to be afebrile, heart rate in the 60s, blood pressure 183/60, pulse ox 95% on room air. Patient was admitted to the [facility] floor and cardiology consult requested. 04/18: Patient is followed by both pulmonary medicine and cardiology. Cardiology is planning for EMILY as an outpatient with Dr. Diana regarding valvular heart disease. Patient has been afebrile, heart rate 67, blood pressure 147/57, pulse ox 96% on room air. Repeat blood work reveals BUN of 29 creatinine 1.25, blood sugars run between 106 and 145. The patient states that she slept well during the night. She states that she was able to ambulate in the hallway with physical therapy. She denies any chest pain or lightheadedness. Physical therapy has recommended home. Patient has had bradycardia in the past and cardiac monitoring will be added. Continue IV Lasix for another 24 hours and plan for discharge tomorrow. 04/19: Patient has been afebrile, heart rate 46 and down as low as 38 during the night, blood pressure 150/68, pulse ox 94% on room air. Blood sugars are between 137 and 165. Sodium 140, potassium 4.0, chloride 106, CO2 25, BUN 32 and creatinine 1.39. Cardiology is decrease clonidine to 0.1 mg daily, Lasix transitioned to oral 40 mg twice daily, losartan at 50 mg twice daily and Aldactone added at 25 mg daily. Discussed case with cardiology and patient will undergo EMILY tomorrow with Dr. Diana. Anticipate possible discharge by t omorrow. Patient is also followed by Dr. Arteaga and now following on an as- needed basis. Review of Systems Constitutional: Denies fatigue, denies weakness, Denies anorexia, Denies chills, Denies fever, Denies poor appetite, Denies weight loss Ears, nose, mouth and throat: Denies dysphagia, Denies nasal congestion, Denies nasal discharge, Denies vertigo Cardiovascular: Denies chest pain, reports decreased exercise tolerance, reports dyspnea on exertion, Denies edema, Denies leg edema, Denies lightheadedness, Denies palpitations, Denies syncope Respiratory: Denies cough, Denies cough with sputum, denies dyspnea, Denies excessive sputum, Denies hemoptysis, Denies home oxygen, Denies wheezing Gastrointestinal: Denies nausea, denies vomiting, Denies abdominal pain, Denies diarrhea, Denies loss of appetite Genitourinary: Denies dysuria, Denies urgency, Denies urinary frequency Musculoskeletal: Reports gait dysfunction, Reports muscle weakness, Denies frequent falls, Denies myalgias Integumentary: Denies pruritus, Denies rash, reports wounds Neurological: Reports gait dysfunction, Reports weakness, Denies burning pain, Denies change in speech, Denies paresthesias, Denies syncope Psychiatric: Denies anxiety, Denies depression Endocrine: Denies fatigue, Denies weight change Objective - Vital Signs Vital signs: Vital Signs Temp 97.6 F 04/19/19 12:12 Pulse 46 L 04/19/19 12:12 Resp 16 04/19/19 12:12 BP 158/68 04/19/19 12:12 Pulse Ox 94 L 04/19/19 12:12 Intake & Output 04/18/19 04/19/19 04/19/19 18:59 06:59 18:59 Output Total 2 Balance -2 Weight 63.548 kg Output: Stool 2 Other: Voiding Method Toilet Toilet Toilet Diaper Diaper Diaper # Voids 1 2 - Exam Gen: This is an 84-year-old female. She is resting in bed and appears to be comfortable in no acute distress. HEENT: Head is atraumatic, normocephalic. Pupils equal, round. Sclerae is anicteric. NECK: Supple. No JVD. No lymphadenopathy. No thyromegaly. LUNGS: Clear to auscultation. No wheezes or rhonchi. No intercostal retractions. HEART: Regular rate and rhythm. Systolic murmur. ABDOMEN: Soft. Bowel sounds are present. No masses. No tenderness. EXTREMITIES: 1+ pedal edema. Dorsalis pedis +1 bilaterally. Wound to the right anterior aspect foot with dressing in place. NEUROLOGICAL: Patient is awake, alert and oriented x3. Cranial nerves 2 through 12 are grossly intact. - Labs CBC & Chem 7: 04/16/19 15:26 04/19/19 06:57 Labs: Abnormal Lab Results - Last 24 Hours (Table) 04/18/19 04/18/19 04/18/19 Range/Units 17:09 20:42 21:02 BUN (7-17) mg/dL Creatinine (0.52-1.04) mg/dL Glucose (74-99) mg/dL POC Glucose (mg/dL) 170 H 53 L 51 L (75-99) mg/dL 04/18/19 04/18/19 04/19/19 Range/Units 21:05 21:40 02:20 BUN (7-17) mg/dL Creatinine (0.52-1.04) mg/dL Glucose (74-99) mg/dL POC Glucose (mg/dL) 61 L 122 H 165 H (75-99) mg/dL 04/19/19 04/19/19 04/19/19 Range/Units 06:50 06:57 11:55 BUN 32 H (7-17) mg/dL Creatinine 1.39 H (0.52-1.04) mg/dL Glucose 124 H (74-99) mg/dL POC Glucose (mg/dL) 137 H 155 H (75-99) mg/dL Assessment and Plan Plan: 1. Acute on chronic diastolic heart failure. Cardiology consult appreciated. Cardiology is transition patient to oral Lasix 40 mg twice daily, monitor I&O and daily weights. Aldactone 25 mg daily added 2. Hypertension, uncontrolled. Continue clonidine 0.1 mg decreased to once daily, Cardura 4 mg daily, hydralazine 100 mg 3 times daily, losartan increased to 50 mg twice daily, Procardia XL 90 mg daily. 3. Chronic kidney disease stage III. Avoid nephrotoxic agents. 4. History of coronary artery disease status post CABG in 2011. Continue aspirin 81 mg daily, Lipitor 80 mg daily, Cozaar. 5. Valvular heart disease with moderate aortic stenosis, moderate mitral regurgitation, moderate tricuspid regurgitation, severe pulmonary hypertension. MEILY tomorrow 6. Hyperlipidemia. Continue Lipitor 80 mg daily. 7. Chronic kidney disease stage III, monitor closely. 8. Diabetes mellitus type 2, insulin requiring, uncontrolled with hypoglycemia. Continue NovoLog 70/30 decreased to 5 units units 2 times daily and NovoLog scale before meals and at bedtime 9. Anemia of chronic disease. Continue ferrous sulfate 325 mg daily 10. Valvular heart disease with moderate aortic stenosis, moderate mitral regurgitation, moderate tricuspid regurgitation, severe pulmonary hypertension 11. Gout, chronic. Continue allopurinol 100 mg daily. 12. Generalized anxiety disorder. Continue Ativan 1 mg twice daily. 13. Gastroesophageal reflux disease and GI prophylaxis. Continue Protonix. 14. DVT prophylaxis. Heparin subcu. 15. Right perihilar infiltrate, underlying mass not entirely excluded. Consult pulmonary medicine appreciated. Patient will need outpatient follow-up. 16. Bradycardia. Continue cardiac monitoring, clonidine decreased. Discharge plan: Home on . Impression and plan of care have been directed as dictated by the signing physician. Talia Schneider nurse practitioner acting as scribe for signing physician.
[2019-04-19 16:54] LABS: Glucose,Whole Blood 86 mg/dL (75-99)
[2019-04-19] MEDS: FUROSEMIDE 40 MG TAB PO SCH (17:21)
[2019-04-19 20:31] LABS: Glucose,Whole Blood 206 mg/dL (75-99)
[2019-04-19] MEDS: CYANOCOBALAMIN 500 MCG TAB PO SCH (21:27)
[2019-04-19] MEDS: FERROUS SULFATE 325 MG TAB PO SCH (21:27)
[2019-04-19] MEDS: LOSARTAN 50 MG TAB PO SCH (21:27)
[2019-04-19] MEDS: CHOLECALCIFEROL 1,000 UNIT TAB PO SCH (21:27)
[2019-04-19] MEDS: ATORVASTATIN 80 MG TAB PO SCH (21:27)
[2019-04-19] MEDS: PANTOPRAZOLE 40 MG TABLET PO SCH (21:28)
[2019-04-20 01:56] LABS: Glucose,Whole Blood 106 mg/dL (75-99)
[2019-04-20 07:10] LABS: Glucose,Whole Blood 148 mg/dL (75-99)
[2019-04-20] MEDS: INSULN ASP PRT/INSULIN ASPART 100 UNIT/ML 10 ML VIAL SQ SCH (07:35)
[2019-04-20] MEDS: INSULIN ASPART (NovoLOG) 100 UNIT/ML VIAL SQ SCH ×2 (07:35→12:43)
[2019-04-20] MEDS ORDERED: SODIUM CHLORIDE 0.9% 500 ML 500 ML IV ONE (08:03)
[2019-04-20] MEDS ORDERED: BENZOCAINE SPRAY 1 CAN TOPICAL ONE (08:17)
[2019-04-20] MEDS: MIDAZOLAM 2 MG/2 ML VIAL IVP ONE ×2 (08:26→08:28)
[2019-04-20] MEDS: fentaNYL (PF) 50 MCG/ML 2 ML AMP IV ONE ×2 (08:26→08:28)
[2019-04-20] MEDS ORDERED: SODIUM CHLORIDE 0.9% 1,000 ML IV SCH (08:45)
--- NOTE | 2019-04-20 08:51 | P.TEE ---
Indications for Procedure(s): Assessment of aortic stenosis Date of Procedure: 04/20/19 Preoperative Diagnosis: Aortic stenosis, congestive heart failure Postoperative Diagnosis: Moderate aortic stenosis, preserved LV function Description of Procedure(s): INDICATION: This is a 84-year-old female with history of hypertension and known aortic stenosis is admitted to the hospital with recurrence of congestive heart failure. A EMILY examination is recommended to rule out critical aortic stenosis CONSENT:. Verbal consent was obtained from the patient, family PROCEDURE:, Patient was brought to the lab in a fasting state. She was prepped and draped in the usual fashion. The throat was sprayed with Cetacaine. Patient was given IV Versed 1 mg and fentanyl 12.5 mg for sedation. A lubricated Omni probe was introduced into the oropharynx and was advanced into the esophagus. Patient tolerated the procedure well. Color, pulsed and continuous her Doppler studies were performed. Saline contrast bubble injection was also performed. Patient tolerated the procedure well. No immediate complications FINDINGS:. The aortic valve is tricuspid with calcification and some distraction to the opening excursion. By planimetry valve area. appears to be around 1.1. A peak gradient of 32 with a mean of 22 was obtained, again consistent with moderate aortic stenosis. There doesn't seem to be any aortic regurgitation. The mitral valve shows some thickening and calcification with mild to moderate regurgitation. The left atrial appendage is free of any clot. The interatrial septum is intact without any spontaneous shunt. Injection of the saline contrast bubble study did not show any crossing of bubbles across the septum. The left ankle function appear to be preserved. The left atrium appeared mild to moderately enlarged. There is hypertrophy of the left ventricle IMPRESSION:. Moderate aortic stenosis. Mild to moderate mitral regurgitation. Preserved LV function. No PFO. No clot in the left atrial appendage PLAN:. Continuation of medical therapy. Follow up with serial echoes
[2019-04-20] MEDS ORDERED: LOSARTAN 50 MG TAB PO SCH (09:00)
[2019-04-20] MEDS ORDERED: cloNIDine HCL 0.1 MG TAB PO SCH (09:00)
[2019-04-20 09:12] VITALS: TEMP 97.8
[2019-04-20 09:41] VITALS: BP 172/66; PULSE 55
[2019-04-20 10:17] LABS: Calcium 9.1 mg/dL (8.4-10.2); Potassium 3.8 mmol/L (3.5-5.1)
[2019-04-20] MEDS: hydrALAZINE HCL 50 MG TAB PO SCH (10:17)
[2019-04-20] MEDS: LORazepam 1 MG TAB PO SCH (10:18)
[2019-04-20] MEDS: NIFEdipine XL 90 MG TAB.ER.24 PO SCH (10:18)
[2019-04-20] MEDS: POTASSIUM CHLORIDE ER 20 MEQ TAB.ER PO SCH (10:18)
[2019-04-20] MEDS: ASCORBIC ACID 500 MG TAB PO SCH (10:18)
[2019-04-20] MEDS: DOXAZOSIN 4 MG TAB PO SCH (10:18)
[2019-04-20] MEDS: SPIRONOLACTONE 25 MG TAB PO SCH (10:18)
[2019-04-20] MEDS: HEPARIN SODIUM,PORCINE 5,000 UNIT/ML 1 ML VIAL SQ SCH (10:19)
[2019-04-20] MEDS: ASPIRIN 81 MG PO SCH (10:19)
[2019-04-20] MEDS: ALLOPURINOL 100 MG TAB PO SCH (10:19)
[2019-04-20] MEDS: FUROSEMIDE 40 MG TAB PO SCH (10:19)
[2019-04-20] MEDS: LOSARTAN 50 MG TAB PO SCH (10:19)
[2019-04-20 11:39] LABS: Glucose,Whole Blood 128 mg/dL (75-99)
--- NOTE | 2019-04-20 13:28 | P.PN ---
Subjective HISTORY OF PRESENTING ILLNESS This is a pleasant 84-year-old female past medical history significant for an area artery disease status post bypass grafting in 2012, hypertension, diabetes mellitus, chronic diastolic heart failure, dyslipidemia and nonhealing ulcer on the right lower extremity. She follows in the office with Dr. Harshil cruz. She is seen and examined sitting up in bed. She states she has been up and walking in the halls from time to time without difficulty. Breathing has improved since admission. Denies chest pain, dizziness or palpitations. Telemetry tracings indicate episodes of Wenkebach. She denies feeling dizzy or light headed. Blood pressure 178/55 heart rate 53 afebrile and maintaining oxygen saturation on room air. Repeat chest xray shows stable with mild cardiomengaly and diffuse interstitial changes. Persistent pulmonary vascular congestion. PHYSICAL EXAMINATION CONSTITUTIONAL: No apparent distress. HEENT: Head is normocephalic. Pupils are equal, round. Sclerae anicteric. Mucous membranes of the mouth are moist. No JVD. No carotid bruit. CHEST EXAMINATION: Clear to auscultation. No chest wall tenderness is noted on palpation or with deep breathing. HEART EXAMINATION: Regular rate and rhythm. S1, S2 heard. Holosystolic murmur at all listening points, no gallops or rub. EXTREMITIES: 1+ peripheral pulses, trace bilateral lower extremity pitting edema, right lower extremity dressing in place and no calf tenderness. ASSESSMENT Acute on chronic diastolic, improved Coronary artery disease status post bypass grafting Hypertension, uncontrolled Valvular heart disease Aortic stenosis, moderate Dyslipidemia Diabetes mellitus Chronic kidney disease, GFR 47. Stage IIIa PLAN Transition to oral diuretics. Decrease clonidine secondary to wenkebach. Discussed with Dr. Diana and he will proceed with EMILY tomorrow morning. Patient is agreeable. Further recommendations to follow. Nurse Practitioner note has been reviewed, I agree with a documented findings and plan of care. Patient was seen and examined. Objective - Vital Signs Vital signs: Vital Signs Temp 97.8 F 04/20/19 09:11 Pulse 55 L 04/20/19 09:30 Resp 16 04/20/19 09:11 BP 172/66 04/20/19 09:30 Pulse Ox 94 L 04/20/19 09:30 Intake & Output 04/19/19 04/20/19 04/20/19 18:59 06:59 18:59 Intake Total 100 Output Total 1 Balance -1 100 Weight 64.4 kg Intake: IV 100 Output: Stool 1 Other: Voiding Method Toilet Toilet Toilet Diaper Diaper Diaper - Labs CBC & Chem 7: 04/16/19 15:26 04/20/19 09:22 Labs: Abnormal Lab Results - Last 24 Hours (Table) 04/19/19 04/20/19 04/20/19 Range/Units 20:30 01:55 07:08 BUN (7-17) mg/dL Creatinine (0.52-1.04) mg/dL Glucose (74-99) mg/dL POC Glucose (mg/dL) 206 H 106 H 148 H (75-99) mg/dL 04/20/19 04/20/19 Range/Units 09:22 11:22 BUN 35 H (7-17) mg/dL Creatinine 1.40 H (0.52-1.04) mg/dL Glucose 130 H (74-99) mg/dL POC Glucose (mg/dL) 128 H (75-99) mg/dL
--- NOTE | 2019-04-21 09:00 | P.DS ---
Providers Date of admission: 04/18/19 09:41 Expected date of discharge: 04/20/19 Attending physician: Leela Bill Consults: 04/16/19 16:23 Consult Physician Routine Consulting Provider: [facility] Consult Reason/Comments: Pulmonary edema Do you want consulting provider notified?: Yes 04/16/19 18:38 Consult Physician Routine Consulting Provider: Savanah Arteaga Consult Reason/Comments: Infiltrate Do you want consulting provider notified?: Yes 04/16/19 18:40 Consult Physician Routine Consulting Provider: Zack Roldan Consult Reason/Comments: Chest pain, Hx of CAD Do you want consulting provider notified?: Yes Primary care physician: Leela Bill [facility] Course: This is an 84-year-old female patient of Dr. Bill and Dr. Diana with past medical history of coronary artery disease status post CABG in 2011 followed by myocardial infarction, chronic systolic heart failure, chronic kidney disease stage III, diabetes mellitus type 2 insulin requiring, hyperlipidemia, hypertension, cervical stenosis, chronic back pain. Patient's last hospitalization was in November 2018 which time she was treated for dehydration. Patient states that she has had difficulty catching her breath for at least 2 weeks. The first week she had some heaviness in her chest along with the difficulty in breathing. She did have lower extremity edema that is recently decreased. Her states that her blood pressure has been running okay at home if high only a little bit high. Since , patient has been eating a lot of ham and canned soups. She is following with Dr. Williamson for right foot wound. Local wound care is currently in the form of Santyl. Previous echocardiogram reveals EF of 55-60% with moderate concentric left hypertrophy, LA severely dilated greater than 40, moderate aortic stenosis, moderate mitral regurgitation, moderate tricuspid regurgitation, severe pulmonary hypertension. Patient came into [facility] emergency center for evaluation. EKG sinus bradycardia with first degree AV block heart rate 59, T-wave inversion inferior/laterally with evidence of old anterior wall ischemia. Consistent with previous EKG's. No acute changes. Chest xray right perihilar infiltrate, underlying mass not entirely excluded. WBC 5.3, hemoglobin 9.4, platelets 142, potassium 4.1, creatinine 1.1 with a GFR 47, magnesium 2.4, troponin 0.030, 0.037 and 0.034, NT proBNP 5380. She was found to be afebrile, heart rate in the 60s, blood pressure 183/60, pulse ox 95% on room air. Patient was admitted to the [facility] floor and cardiology consult requested. 04/18: Patient is followed by both pulmonary medicine and cardiology. Cardiology is planning for EMILY as an outpatient with Dr. Diana regarding valvular h eart disease. Patient has been afebrile, heart rate 67, blood pressure 147/57, pulse ox 96% on room air. Repeat blood work reveals BUN of 29 creatinine 1.25, blood sugars run between 106 and 145. The patient states that she slept well during the night. She states that she was able to ambulate in the hallway with physical therapy. She denies any chest pain or lightheadedness. Physical therapy has recommended home. Patient has had bradycardia in the past and cardiac monitoring will be added. Continue IV Lasix for another 24 hours and plan for discharge tomorrow. 04/19: Patient has been afebrile, heart rate 46 and down as low as 38 during the night, blood pressure 150/68, pulse ox 94% on room air. Blood sugars are between 137 and 165. Sodium 140, potassium 4.0, chloride 106, CO2 25, BUN 32 and creatinine 1.39. Cardiology is decrease clonidine to 0.1 mg daily, Lasix transitioned to oral 40 mg twice daily, losartan at 50 mg twice daily and Aldactone added at 25 mg daily. Discussed case with cardiology and patient will undergo EMILY tomorrow with Dr. Diana. Anticipate possible discharge by tomorrow. Patient is also followed by Dr. Arteaga and now following on an as-needed basis. 04/20: Patient underwent EMILY this morning with Dr. Diana that revealed moderate aortic stenosis, mild to moderate mitral regurgitation, preserved LV function. No PFO. No clot in the left atrial appendage. Recommendations to continue medical therapy and follow with serial echocardiograms. Heart rate has been running in the 50s since yesterday afternoon, blood pressure 172/66, pulse ox 94% on room air, afebrile. Blood sugars running 106-206. Patient denies any new complaints. No chest pain or shortness of breath. Patient will be discharged home today in stable condition. Discharge diagnoses: 1. Acute on chronic diastolic heart failure. 2. Hypertension, uncontrolled. 3. Chronic kidney disease stage III. 4. History of coronary artery disease status post CABG in 2011. 5. Valvular heart disease with moderate aortic stenosis, moderate mitral regurgitation, moderate tricuspid regurgitation, severe pulmonary hypertension. 6. Hyperlipidemia. 7. Gout, chronic. Continue allopurinol 100 mg daily. 8. Diabetes mellitus type 2, insulin requiring, uncontrolled with hypoglycemia. 9. Anemia of chronic disease. 10. Generalized anxiety disorder. 11. Gastroesophageal reflux disease 12. Right perihilar infiltrate, underlying mass not entirely excluded. 13. Bradycardia. Discharge plan: Home on . Impression and plan of care have been directed as dictated by the signing physician. Talia Schneider nurse practitioner acting as scribe for signing physician. Patient Condition at Discharge: Good Plan - Discharge Summary Discharge Rx Participant: No New Discharge Prescriptions: New Spironolactone [Aldactone] 25 mg PO DAILY #30 tab Losartan [Cozaar] 50 mg PO BID #60 tab Furosemide [Lasix] 40 mg PO BID@0900,1600 #60 tab Continue Omeprazole 40 mg PO HS Aspirin 162 mg PO DAILY@0800 Allopurinol 100 mg PO DAILY@0800 Nitroglycerin 0.2MG/Hr Patch [Nitro-Dur 0.2MG/Hr Patch] 1 patch TRANSDERM Q24H PRN PRN Reason: Chest Pain Ferrous Sulfate [Feosol] 325 mg PO HS Cholecalciferol [Vitamin D3 (25 Mcg = 1000 Iu)] 2,000 unit PO HS Ascorbic Acid [Vitamin C] 500 mg PO DAILY@0800 Atorvastatin [Lipitor] 80 mg PO HS hydrALAZINE HCL [Apresoline] 100 mg PO TID Ubidecarenone [Co Q-10] 200 mg PO HS Cyanocobalamin [Vitamin B-12] 500 mcg PO HS LORazepam [Ativan] 1 mg PO BID #6 tab Aria Green Barley 3 tab PO BID NIFEdipine XL [Procardia XL] 90 mg PO DAILY@0800 Doxazosin [Cardura] 4 mg PO DAILY@0800 Collagenase [Santyl] 1 applic TOPICAL DAILY Changed cloNIDine HCL [Catapres] 0.1 mg PO DAILY #90 tab Insulin NPL/Insulin Lispro [humaLOG MIX 75-25 VIAL] 5 unit SQ AC-BID #0 Discontinued Torsemide [Demadex] 20 mg PO DAILY@0800 Furosemide [Lasix] 40 mg PO MOWEFR Potassium Chloride ER [K-Dur 20] 20 meq PO MOWEFR Discharge Medication List Allopurinol 100 mg PO DAILY@0800 03/05/14 [History] Aspirin 162 mg PO DAILY@0800 03/05/14 [History] Omeprazole 40 mg PO HS 03/05/14 [History] Ascorbic Acid [Vitamin C] 500 mg PO DAILY@0800 09/24/14 [History] Atorvastatin [Lipitor] 80 mg PO HS 09/24/14 [History] Cholecalciferol [Vitamin D3 (25 Mcg = 1000 Iu)] 2,000 unit PO HS 09/24/14 [History] Ferrous Sulfate [Feosol] 325 mg PO HS 09/24/14 [History] Nitroglycerin 0.2MG/Hr Patch [Nitro-Dur 0.2MG/Hr Patch] 1 patch TRANSDERM Q24H PRN 09/24/14 [History] hydrALAZINE HCL [Apresoline] 100 mg PO TID 07/04/17 [History] Cyanocobalamin [Vitamin B-12] 500 mcg PO HS 04/13/18 [History] Ubidecarenone [Co Q-10] 200 mg PO HS 04/13/18 [History] LORazepam [Ativan] 1 mg PO BID #6 tab 04/20/18 [Rx] Aria Green Barley 3 tab PO BID 12/10/18 [History] Doxazosin [Cardura] 4 mg PO DAILY@0800 12/10/18 [History] NIFEdipine XL [Procardia XL] 90 mg PO DAILY@0800 12/10/18 [History] Collagenase [Santyl] 1 applic TOPICAL DAILY 04/16/19 [History] Furosemide [Lasix] 40 mg PO BID@0900,1600 #60 tab 04/20/19 [Rx] Insulin NPL/Insulin Lispro [humaLOG MIX 75-25 VIAL] 5 unit SQ AC-BID #0 04/20/19 [Rx] Losartan [Cozaar] 50 mg PO BID #60 tab 04/20/19 [Rx] Spironolactone [Aldactone] 25 mg PO DAILY #30 tab 04/20/19 [Rx] cloNIDine HCL [Catapres] 0.1 mg PO DAILY #90 tab 04/20/19 [Rx] Follow up Appointment(s)/Referral(s): Leela Bill MD [Primary Care Provider] - 1 Week (office will call patient with time and date) Demetrius Diana MD [STAFF PHYSICIAN] - 04/27/19 9:45 am [facility] Visiting Nurse, [NON-STAFF] - 1 Week Patient Instructions/Handouts: Spironolactone (By mouth), Furosemide (By mouth), Losartan (By mouth), Heart Failure (DC), Dyspnea (DC), Fall Prevention (DC), Type 2 Diabetes Management for Adults (DC) Discharge Disposition: HOME WITH HOME HEALTH SERVICES
== END 2019-04-20 15:35 | disposition home health service (06) | DRG 291 ==
LOC: EC 14:34 → 5NMEDONC 16:32 → OBSVTOIN 04-18 09:41
PROVIDERS: ADMIT Internal Medicine; ATTEND Internal Medicine
PROC: B24BZZ4 Ultrasonography of Heart with Aorta, Transesophageal (ICD-10-PCS; principal; 2019-04-20 08:15)
DX: I13.0 Hypertensive heart and chronic kidney disease with heart failure and stage 1 through stage 4 chronic kidney disease, or unspecified chronic kidney disease (principal); I50.43 Acute on chronic combined systolic (congestive) and diastolic (congestive) heart failure; N17.9 Acute kidney failure, unspecified; L97.312 Non-pressure chronic ulcer of right ankle with fat layer exposed; E78.5 Hyperlipidemia, unspecified; E11.621 Type 2 diabetes mellitus with foot ulcer; E11.22 Type 2 diabetes mellitus with diabetic chronic kidney disease; D63.8 Anemia in other chronic diseases classified elsewhere; F41.1 Generalized anxiety disorder; I08.3 Combined rheumatic disorders of mitral, aortic and tricuspid valves; I25.10 Atherosclerotic heart disease of native coronary artery without angina pectoris; I27.29 Other secondary pulmonary hypertension; M1A.9XX0 Chronic gout, unspecified, without tophus (tophi); R00.1 Bradycardia, unspecified; R91.8 Other nonspecific abnormal finding of lung field; I44.0 Atrioventricular block, first degree; K21.9 Gastro-esophageal reflux disease without esophagitis; N18.3 Chronic kidney disease, stage 3 (moderate); I25.2 Old myocardial infarction; Z79.4 Long term (current) use of insulin; Z79.82 Long term (current) use of aspirin; Z79.899 Other long term (current) drug therapy; Z80.3 Family history of malignant neoplasm of breast; Z82.49 Family history of ischemic heart disease and other diseases of the circulatory system; Z82.0 Family history of epilepsy and other diseases of the nervous system; Z90.710 Acquired absence of both cervix and uterus; Z83.3 Family history of diabetes mellitus; Z95.1 Presence of aortocoronary bypass graft; Z88.5 Allergy status to narcotic agent; Z88.0 Allergy status to penicillin; Z88.8 Allergy status to other drugs, medicaments and biological substances
CPT/HCPCS: 36415; 71046; 80048; 80053; 83735; 83880; 84484; 85025; 85610; 85730; 93005; 93312; 93320; 93325; 96374; 99285

== ENCOUNTER → 2019-04-27 | Outpatient (CLI) | payer MEDICARE ==
--- NOTE | 2019-04-17 17:46 | P.CNPUL ---
History of Present Illness Consult date: 04/17/19 Reason for consult: dyspnea History of present illness: 84-year-old white female patient, came into the hospital because of progressive shortness of breath over the past 2 weeks pressure when she lays down flat in addition to episodes of chest pain. The patient reports that whenever she lays down flat she became more short of breath and she feels heaviness in her chest. She also has exertional dyspnea. She has known history of coronary artery disease. She has undergone previous bypass surgery in 2011. She is known to have chronic diastolic heart failure. She is known to have diabetes and hyperlipidemia and hypertension and a chronic nonhealing ulcer in the right lower extremity. The patient came into the hospital and the patient was found to have a proBNP level of 5318. Troponins were 0.033 respectively. The patient's white cell count was at 5.3 with a hemoglobin of 9.4. The patient's chest x-ray showed right perihilar infiltrate and an underlying mass cannot be completely excluded. The EKG showed sinus bradycardia with a first-degree AV block without any significant acute segment ST changes and there is evidence of an old anterior wall ischemia/infarct which is consistent with previous EKGs. The patient has been taken Lasix 40 mg 3 times a week. Aggressive the medication also reviewed. No significant echocardiogram from December 2018 showed a preserved LV function with an EF of around 55-60% along with severely dilated LA and moderate degree of aortic stenosis with a mean gradient of 23 mmHg and moderate MR and severely calcified mitral annulus and mild to moderate mitral stenosis with a gradient of 6 across the valve. The patient has moderate to severe pulmonary hypertension with a PA pressure of around 51. The patient was treated with Lasix. The patient currently receiving Lasix 40 mg every 12 hours. Review of Systems Constitutional: Denies chills, Denies fever, Denies lethargy, Denies malaise, Denies poor appetite, Denies weakness, Denies weight loss Eyes: denies decreased vision, denies diplopia, denies discharge, denies pain Ears: deny: decreased hearing Ears, nose, mouth and throat: Denies dental pain, Denies headache, Denies nasal discharge, Denies nose pain Cardiovascular: Denies chest pain, decreased exercise tolerance, Denies edema, Denies high blood pressure, Denies irregular heart beat, Denies palpitations, Denies paroxysmal nocturnal dyspnea, Denies rapid heart beat, Denies shortness of breath Respiratory: Denies congestion, Denies cough, Denies cough with sputum, Denies dyspnea, Denies home oxygen, Denies wheezing, admits to have exertional dyspnea and the patient has been having worsening shortness of breath whenever she lays down flat. Gastrointestinal: Denies abdominal pain, Denies change in bowel habits, Denies coffee ground emesis, Denies early satiety, Denies excessive gas, Denies heartburn, Denies hematemesis, Denies hematochezia, Denies loss of appetite, Denies nausea, Denies vomiting Genitourinary: Denies dysuria, Denies flank pain, Denies kidney stones, Denies menorrhagia, Denies urgency, Denies urinary frequency Musculoskeletal: Denies gait dysfunction, Denies limitation of motion, Denies morning stiffness, Denies muscle cramps Integumentary: Denies rash, Denies wounds, Denies brittle nails, Denies change in hair/nails, Denies darkening of skin Neurological: Denies balance difficulties, Denies change in speech, Denies double vision, Denies gait dysfunction, Denies loss of vision, Denies motor disturbance, Denies numbness, Denies paralysis, Denies paresthesias, Denies seizures Psychiatric: Denies anxiety, Denies depression Endocrine: Denies excessive sweating, Denies excessive thirst, Denies high blood sugars, Denies palpitations Hematologic/Lymphatic: Denies easy bruising, Denies lymphadenopathy Past Medical History Past Medical History: Coronary Artery Disease (CAD), Heart Failure, Diabetes Mellitus, GERD/Reflux, Hyperlipidemia, Hypertension, Myocardial Infarction (AL), Osteoarthritis (OA) Additional Past Medical History / Comment(s): History of valvular heart disease with aortic stenosis, moderate mitral regurgitation stenosis, coronary artery disease with previous AL and previous bypass surgery, chronic anemia, chronic osteoarthritis and neck pain, diabetes mellitus, hypertension and hyperlipidemia, 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 She is independent. She uses a walker for ambulation. Smoking Status: Never smoker Past Alcohol Use History: Occasional Additional Past Alcohol Use History / Comment(s): Patient is and lives with her . Past Drug Use History: None Reported - Past Family History Mother Family Medical History: Cancer, Diabetes Mellitus Additional Family Medical History / Comment(s): Mother had breast cancer. Father Family Medical History: Congestive Heart Failure (CHF) Brother(s) Family Medical History: Cancer (Patient is lives with her , functionally active denies any need a walker or assistance) Medications and Allergies Home Medications Medication Instructions Recorded Confirmed Type Allopurinol 100 mg PO DAILY@0800 03/05/14 04/16/19 History Aspirin 162 mg PO DAILY@0800 03/05/14 04/16/19 History Omeprazole 40 mg PO HS 03/05/14 04/16/19 History Ascorbic Acid [Vitamin C] 500 mg PO DAILY@0800 09/24/14 04/16/19 History Atorvastatin [Lipitor] 80 mg PO HS 09/24/14 04/16/19 History Cholecalciferol [Vitamin D3 (25 2,000 unit PO HS 09/24/14 04/16/19 History Mcg = 1000 Iu)] Ferrous Sulfate [Feosol] 325 mg PO HS 09/24/14 04/16/19 History Nitroglycerin 0.2MG/Hr Patch 1 patch TRANSDERM Q24H PRN 09/24/14 04/16/19 History [Nitro-Dur 0.2MG/Hr Patch] hydrALAZINE HCL [Apresoline] 100 mg PO TID 07/04/17 04/16/19 History Cyanocobalamin [Vitamin B-12] 500 mcg PO HS 04/13/18 04/16/19 History Insulin NPL/Insulin Lispro 15 unit SQ AC-BID 04/13/18 04/16/19 History [humaLOG MIX 75-25 VIAL] Ubidecarenone [Co Q-10] 200 mg PO HS 04/13/18 04/16/19 History LORazepam [Ativan] 1 mg PO BID #6 tab 04/20/18 04/16/19 Rx Aria Green Barley 3 tab PO BID 12/10/18 04/16/19 History Doxazosin [Cardura] 4 mg PO DAILY@0800 12/10/18 04/16/19 History NIFEdipine XL [Procardia XL] 90 mg PO DAILY@79912/10/18 04/16/19 History Torsemide [Demadex] 20 mg PO DAILY@79912/10/18 04/16/19 History cloNIDine HCL [Catapres] 0.1 mg PO TID #90 tab 12/12/18 04/16/19 Rx Collagenase [Santyl] 1 applic TOPICAL DAILY 04/16/19 04/16/19 History Furosemide [Lasix] 40 mg PO MOWEFR 04/16/19 04/16/19 History Potassium Chloride ER [K-Dur 20] 20 meq PO MOWEFR 04/16/19 04/16/19 History Allergies Allergy/AdvReac Type Severity Reaction Status Date / Time cortisone Allergy Rash/Hives Verified 04/16/19 17:52 morphine Allergy Unknown Verified 04/16/19 17:52 Penicillins Allergy Rash/Hives Verified 04/16/19 17:52 Physical Exam - Constitutional General appearance: cooperative, no acute distress, obese - EENT Eyes: anicteric sclerae, PERRLA, normal appearance ENT: hearing grossly normal - Neck Neck: no lymphadenopathy, normal ROM, no other, no rigidity, no stridor, no thyromegaly - Respiratory Respiratory: bilateral: CTA, negative: diminished, dullness, rales, rhonchi - Cardiovascular Rhythm: regular Heart sounds: normal: S1, S2 Abnormal Heart Sounds: 3+ systolic murmur, no diastolic murmur, no rub, no S3 Gallop, no S4 Gallop, no click, no other - Gastrointestinal General gastrointestinal: normal bowel sounds, soft - Integumentary Integumentary: no rash - Neurologic Neurologic: CNII-XII intact - Musculoskeletal Musculoskeletal: gait normal, strength equal bilaterally - Psychiatric Psychiatric: A&O x's 3, appropriate affect Results - Diagnostic Findings Chest x-ray: image reviewed Assessment and Plan Plan: 1 CHF with secondary shortness of breath. The patient has an acute exacerbation of chronic CHF with diastolic heart failure. The patient has moderate concentric LVH with preserved LV function with an EF of around 55-60%. She does have moderate degree of aortic stenosis with severe mitral annular calcification and moderate MR degree of pulmonary hypertension with a PA pressure of 51. She has exertional dyspnea and orthopnea and elevated proBNP level or consistent with CHF 2 CAD with previous coronary artery disease 3 mild troponin leak without any acute ischemic changes on EKG and no evidence of any non-STEMI at this point in time 4 right perihilar opacity, mass cannot be completely excluded. Could be related to enlarged pulmonary arteries as the patient has moderate to severe pulmonary hypertension 5 hypertension 6 hyperlipidemia 7 diabetes mellitus 8 chronic normocytic anemia Plan IV Lasix 40 mg every 12 hours Monitor urine output and electrolytes Cardiology consultation, consider EMILY Clinically the patient is already improving with the diuretics and she is feeling better. I will stay the course and continue the same treatment. We'll follow
--- NOTE | 2019-04-27 14:48 | BD ---
EXAMINATION TYPE: Axial Bone Density DATE OF EXAM: 04/27/2019 COMPARISON: 05.09.2014 CLINICAL HISTORY: 84 YR OLD FEMALE....ICD-10 CODE: M85.9 DISORDER OF BONE Height: 59 Weight: 136 FRAX RISK QUESTIONS: Secondary Osteoporosis: YES 1. Type 1 Diabetes: YES, RISK FACTORS HISTORY OF: Postmenopausal woman: YES, 51 YRS OLD Lost more than 2 inches in height since high school: YES Frequent falls: ELDERLY, IN W/C Poor Health: ELDERLY, IN W/C Hyperparathyroidism: NO? POOR HISTORIAN Adrenal Insufficiency: NO? MEDICATIONS: Additional Medications: BP MEDS, INSULIN, CHOLESTEROL MEDS, VIT D3, HEART MEDS, Additional History: RECENT HEART ATTACK, DIABETIC, HX OF [place] SURG WITH 7 BYPASSES, CHOLESTEROL, SPINAL STENOSIS EXAM MEASUREMENTS: Bone mineral densitometry was performed using the [employer] System. Bone mineral density as measured about the Lumbar spine is: ----- L1-L4(G/cm2): 1.212 T Score Values are as follows: ----- L1: 0.5 ----- L2: 0.5 ----- L3: 0.4 ----- L4: -0.4 ----- L1-L4: 0.3 Bone mineral density has: Decreased -1.7% since study of: 05.09.2014 Bone mineral density about the R hip (g/cm2): 0.687 Bone mineral density about the L hip (g/cm2): 0.707 T Score values are as follows: -----R Neck: -3.0 -----L Neck: -3.0 -----R Total: -2.5 -----L Total: -2.4 Bone mineral density has: Decreased -12.4% since study of: 05.09.2014 FRAX%s: THERE IS A 24.3% CHANCE FOR A MAJOR OSTEOPOROTIC FX AND A 10.1% FOR HIP.....PROBABILITY FOR FX IN 10 YRS TIME IMPRESSION: Osteoporosis (T Score less than -2.5). There is increased fracture risk and therapy is usually indicated based on age. Re-Screen 1-2 years. NOTE: T-SCORE=SD OF THE YOUNG ADULT MEAN.
--- NOTE | 2019-05-01 08:56 | MM ---
Reason for exam: screening (asymptomatic). Last mammogram was performed 4 years and 3 months ago. History: Patient is postmenopausal and is nulliparous. Physical Findings: A clinical breast exam by your physician is recommended on an annual basis and results should be correlated with mammographic findings. MG 3D Screening Mammo W/Cad Bilateral CC and MLO view(s) were taken. Prior study comparison: January 15, 2015, mammogram, performed at [facility]. December 26, 2013, mammogram, performed at [facility]. The breast tissue is heterogeneously dense. This may lower the sensitivity of mammography. No significant changes when compared with prior studies. ASSESSMENT: Benign, BI-RAD 2 RECOMMENDATION: Routine screening mammogram of both breasts in 1 year.
== END | disposition home or self-care (01) ==
LOC: RADMAMWWP 11:45
PROVIDERS: ATTEND Internal Medicine
DX: Z12.31 Encounter for screening mammogram for malignant neoplasm of breast (principal); M81.0 Age-related osteoporosis without current pathological fracture
CPT/HCPCS: 77063; 77067; 77080

== ENCOUNTER 2019-09-13 18:07 | Inpatient (IN) | payer MEDICARE ==
--- NOTE | 2019-09-13 18:34 | ED ---
General Adult HPI - General Source: EMS Mode of arrival: EMS Limitations: no limitations <Karely Corona - Last Filed: 09/13/19 19:58> <Val Larios - Last Filed: 09/17/19 16:52> - General Chief complaint: Fall Stated complaint: Fall Time Seen by Provider: 09/13/19 18:09 - History of Present Illness Initial comments: 84-year-old female patient with past medical history significant for coronary artery disease status post CABG in 2011, severe valvular heart disease, heart failure, diabetes, chronic kidney disease, hypertension, presents to the emergency department today for evaluation of generalized weakness and frequent falls. Patient states symptoms are worsened over the last couple of days. Patient states that she is eating and drinking without difficulty. Denies any fever or chills. Denies chest pain or shortness of breath. Denies abdominal pain, nausea, or vomiting. She states that she did injure her right knee. Denies hitting her head or losing consciousness. States today when she fell she landed on her buttocks. Denies any back pain. Denies any pain radiating down her legs, numbness or tingling to the lower extremities, or loss of bowel or bladder control. Patient denies any recent rash, cough, diarrhea, constipation, back pain, hematuria, dysuria, urinary urgency, urinary frequency, headache, visual changes, or any other complaints. (Karely Corona) - Related Data Home Medications Medication Instructions Recorded Confirmed Allopurinol 100 mg PO DAILY 03/05/14 09/13/19 Aspirin 162 mg PO DAILY@0800 03/05/14 09/13/19 Omeprazole 40 mg PO HS 03/05/14 09/13/19 Ascorbic Acid [Vitamin C] 500 mg PO DAILY@0800 09/24/14 09/13/19 Atorvastatin [Lipitor] 80 mg PO HS 09/24/14 09/13/19 Cholecalciferol [Vitamin D3 (25 2,000 unit PO HS 09/24/14 09/13/19 Mcg = 1000 Iu)] Ferrous Sulfate [Feosol] 325 mg PO HS 09/24/14 09/13/19 Nitroglycerin 0.2MG/Hr Patch 1 patch TRANSDERM Q24H PRN 09/24/14 09/13/19 [Nitro-Dur 0.2MG/Hr Patch] hydrALAZINE HCL [Apresoline] 100 mg PO TID-W/MEALS 07/04/17 09/13/19 Cyanocobalamin [Vitamin B-12] 500 mcg PO HS 04/13/18 09/13/19 Ubidecarenone [Co Q-10] 200 mg PO HS 04/13/18 09/13/19 Doxazosin [Cardura] 4 mg PO DAILY 12/10/18 09/13/19 NIFEdipine XL [Procardia XL] 90 mg PO DAILY 12/10/18 09/13/19 Furosemide [Lasix] 40 mg PO DAILY 09/13/19 09/13/19 Insulin NPL/Insulin Lispro 5 - 15 unit SQ AC-TID 09/13/19 09/13/19 [humaLOG MIX 75-25 VIAL] LORazepam [Ativan] 1 - 2 mg PO HS PRN 09/13/19 09/13/19 cloNIDine HCL [Catapres] 0.1 mg PO TID 09/13/19 09/13/19 Previous Rx's Medication Instructions Recorded Losartan [Cozaar] 50 mg PO BID #60 tab 04/20/19 Spironolactone [Aldactone] 25 mg PO DAILY #30 tab 04/20/19 Allergies Allergy/AdvReac Type Severity Reaction Status Date / Time cortisone Allergy Rash/Hives Verified 09/13/19 19:02 morphine Allergy Unknown Verified 09/13/19 19:02 Penicillins Allergy Rash/Hives Verified 09/13/19 19:02 Review of Systems ROS Other: All systems not noted in ROS Statement are negative. <Karely Corona - Last Filed: 09/13/19 19:58> ROS Other: All systems not noted in ROS Statement are negative. <Val Larios - Last Filed: 09/17/19 16:52> ROS Statement: Those systems with pertinent positive or pertinent negative responses have been documented in the HPI. Past Medical History Past Medical History: Coronary Artery Disease (CAD), Heart Failure, Diabetes Mellitus, GERD/Reflux, Hyperlipidemia, Hypertension, Myocardial Infarction (IA), Osteoarthritis (OA) Additional Past Medical History / Comment(s): History of valvular heart disease with aortic stenosis, moderate mitral regurgitation stenosis, coronary artery disease with previous IA and previous bypass surgery, chronic anemia, chronic osteoarthritis and neck pain, diabetes mellitus, hypertension and hyperlipidemia, 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 Last Myocardial Infarction Date:: 08/2014 History of Any Multi-Drug Resistant Organisms: None Reported Past Surgical History: Cholecystectomy, Coronary Bypass/CABG, Hysterectomy Additional Past Surgical History / Comment(s): 8x D&C, CABG 7 Blockages, bilateral foot surgery to remove tumors Past Anesthesia/Blood Transfusion Reactions: No Reported Reaction Past Psychological History: No Psychological Hx Reported Smoking Status: Never smoker Past Alcohol Use History: Occasional Past Drug Use History: None Reported - Past Family History Mother Family Medical History: Cancer, Diabetes Mellitus Additional Family Medical History / Comment(s): Mother had breast cancer. Father Family Medical History: Congestive Heart Failure (CHF) Additional Family Medical History / Comment(s): Father in his early 80s from diabetes, occasions. No coronary artery disease. Brother(s) Family Medical History: Cancer (Patient is lives with her , functionally active denies any need a walker or assistance) Additional Family Medical History / Comment(s): Patient had total of 4 brothers. One at 69 from alcohol abuse. One at age 8 from kidney failure, a third brother has of unknown cause. One brother is alive at age 75 with no major medical problems. Sister(s) Additional Family Medical History / Comment(s): Patient has one sister with Crohn's 1 with irritable bowel syndrome. Patient does not have any children. <Karely Corona M - Last Filed: 09/13/19 19:58> General Exam Limitations: no limitations General appearance: alert, in no apparent distress, other (This is a well- developed, well-nourished elderly female patient in no acute distress. Vital signs upon presentation are temperature 97.6, pulse 42, respirations 16, blood pressure 134/53, pulse ox 100% on room air) Eye exam: Present: normal appearance, PERRL, EOMI. Absent: scleral icterus, conjunctival injection, periorbital swelling ENT exam: Present: normal exam, normal oropharynx, mucous membranes moist Respiratory exam: Present: normal lung sounds bilaterally Cardiovascular Exam: Present: normal rhythm, bradycardia, irregular rhythm, normal heart sounds. Absent: systolic murmur, diastolic murmur, rubs, gallop, clicks GI/Abdominal exam: Present: soft, normal bowel sounds. Absent: distended, tenderness, guarding, rebound, rigid Neurological exam: Present: alert, oriented X3, CN II-XII intact Psychiatric exam: Present: normal affect, normal mood Skin exam: Present: warm, dry, intact, pallor. Absent: normal color, rash <Karely Corona - Last Filed: 09/13/19 19:58> Course Vital Signs 09/13/19 09/13/19 09/13/19 18:10 19:50 20:38 Temperature 97.6 F 98.0 F Pulse Rate 42 L 39 L 31 L Respiratory 16 16 16 Rate Blood Pressure 134/53 135/60 138/81 O2 Sat by Pulse 100 97 98 Oximetry EKG Findings - EKG Comments: EKG Findings:: EKG #1 obtained at 1821 shows third-degree heart block with a rate of 36, QRS duration 112, QTC 506, QTC 391. EKG #2 was obtained at 1939 shows sinus bradycardia to second-degree AV block Mobitz type II and incomplete left bundle branch block, ventricular 43, HI interval 304, QR orthodoxy 112, QTC 504, QTC 425. No evidence of ST elevation or depression. <BeckisaúlKarely Vanesa - Last Filed: 09/13/19 19:58> Medical Decision Making - Lab Data Result diagrams: 09/13/19 18:31 09/13/19 18:31 - Radiology Data Radiology results: report reviewed, image reviewed <Karely Corona - Last Filed: 09/13/19 19:58> - Lab Data Result diagrams: 09/17/19 07:17 09/17/19 07:17 <Val Larios - Last Filed: 09/17/19 16:52> - Medical Decision Making 84-year-old female patient presented to the emergency department today for evaluation of weakness, falls. Upon arrival heart rate was in the 30s to 40s. Initial EKG showed third-degree heart block and a second EKG showed second- degree heart block Mobitz type II. Labs reviewed and did reveal elevated potassium of 5.3, elevated BUN and creatinine, elevated troponin at 0.035. Magnesium is 2.6. My attending Dr. Larios did review the EKGs. She spoke to Dr. Roldan transportation assistant for cardiology. He recommends medication for elevated potassium. He will come in and take patient to the laboratory sample carrier for temporary pacemaker. I did discuss results and findings with the patient. She is agreeable. (aKrely Corona) I was available for consultation in the emergency department. The history and physical exam were done by the midlevel provider. I was consulted for this patients care. I reviewed the case with the midlevel provider and based on their presentation of the patient, I agree with the assessment, medical decision making and plan of care as documented. Upon obtaining EKG I did promptly consult Dr. Roldan as I believe it demonstrates a complete heart block. Blood pressure stable however patient symptomatic with multiple falls prior to ED arrival. Dr. Roldan recommended labs and Dopamine administration. Labs demonstrated a mild hyperkalemia. Patients home medications reviewed and held. Patient given a small amount of IV fluids. EKG repeated with improvement in the heart rate to the 40s however mobitz type 2 present on repeat EKG. Discussed case once again with Dr. Roldan who recommended treatment of hyperkalemia. Patie nt given dextrose and insulin. He also recommended temporary pacemaker placement at this time which was discussed with the patient and she was agreeable. Patient taken from ED to laboratory sample carrier in stable condition. Chart was dictated using [employer] dictation software. Attempts were made to correct any dictation errors however some typographical errors may persist. Patient was seen during a national state of emergency due to the Covid-19 pandemic. (Val Larios) - Lab Data Lab Results 09/13/19 09/13/19 09/13/19 Range/Units 18:31 18:31 18:31 WBC 6.8 (3.8-10.6) k/uL RBC 2.55 L (3.80-5.40) m/uL Hgb 8.6 L (11.4-16.0) gm/dL Hct 27.3 L (34.0-46.0) % MCV 106.9 H (80.0-100.0) fL MCH 33.9 (25.0-35.0) pg MCHC 31.7 (31.0-37.0) g/dL RDW 14.4 (11.5-15.5) % Plt Count 253 (150-450) k/uL Neutrophils % 74 % Lymphocytes % 14 % Monocytes % 6 % Eosinophils % 3 % Basophils % 0 % Neutrophils # 5.0 (1.3-7.7) k/uL Lymphocytes # 1.0 (1.0-4.8) k/uL Monocytes # 0.4 (0-1.0) k/uL Eosinophils # 0.2 (0-0.7) k/uL Basophils # 0.0 (0-0.2) k/uL Macrocytosis Moderate PT 10.2 (9.0-12.0) sec INR 1.0 (<1.2) APTT 24.1 (22.0-30.0) sec Sodium 136 L (137-145) mmol/L Potassium 5.3 H (3.5-5.1) mmol/L Chloride 108 H (98-107) mmol/L Carbon Dioxide 22 (22-30) mmol/L Anion Gap 6 mmol/L BUN 83 H (7-17) mg/dL Creatinine 2.12 H (0.52-1.04) mg/dL Est GFR (CKD-EPI)AfAm 24 (>60 ml/min/1.73 sqM) Est GFR (CKD-EPI)NonAf 21 (>60 ml/min/1.73 sqM) Glucose 137 H (74-99) mg/dL POC Glucose (mg/dL) (75-99) mg/dL POC Glu [employer] ID Calcium 9.7 (8.4-10.2) mg/dL Magnesium 2.4 H (1.6-2.3) mg/dL Total Bilirubin 0.3 (0.2-1.3) mg/dL AST 19 (14-36) U/L ALT 14 (4-34) U/L Alkaline Phosphatase 68 (38-126) U/L Troponin I (0.000-0.034) ng/mL Total Protein 6.0 L (6.3-8.2) g/dL Albumin 3.5 (3.5-5.0) g/dL TSH 4.380 (0.465-4.680) mIU/L 09/13/19 09/13/19 Range/Units 18:31 18:45 WBC (3.8-10.6) k/uL RBC (3.80-5.40) m/uL Hgb (11.4-16.0) gm/dL Hct (34.0-46.0) % MCV (80.0-100.0) fL MCH (25.0-35.0) pg MCHC (31.0-37.0) g/dL RDW (11.5-15.5) % Plt Count (150-450) k/uL Neutrophils % % Lymphocytes % % Monocytes % % Eosinophils % % Basophils % % Neutrophils # (1.3-7.7) k/uL Lymphocytes # (1.0-4.8) k/uL Monocytes # (0-1.0) k/uL Eosinophils # (0-0.7) k/uL Basophils # (0-0.2) k/uL Macrocytosis PT (9.0-12.0) sec INR (<1.2) APTT (22.0-30.0) sec Sodium (137-145) mmol/L Potassium (3.5-5.1) mmol/L Chloride (98-107) mmol/L Carbon Dioxide (22-30) mmol/L Anion Gap mmol/L BUN (7-17) mg/dL Creatinine (0.52-1.04) mg/dL Est GFR (CKD-EPI)AfAm (>60 ml/min/1.73 sqM) Est GFR (CKD-EPI)NonAf (>60 ml/min/1.73 sqM) Glucose (74-99) mg/dL POC Glucose (mg/dL) 150 H (75-99) mg/dL POC Glu [employer]ver ID Flavia Cuenca Calcium (8.4-10.2) mg/dL Magnesium (1.6-2.3) mg/dL Total Bilirubin (0.2-1.3) mg/dL AST (14-36) U/L ALT (4-34) U/L Alkaline Phosphatase (38-126) U/L Troponin I 0.035 H* (0.000-0.034) ng/mL Total Protein (6.3-8.2) g/dL Albumin (3.5-5.0) g/dL TSH (0.465-4.680) mIU/L - Radiology Data Two-view x-ray of the chest is obtained. Report was reviewed in its entirety. Impression by Dr. Casey shows cardiomegaly and chronic parenchymal changes with new elevated left hemidiaphragm but no new suspicious focal infiltrate. (Karely Corona) Critical Care Time Critical Care Time: Yes <Val Larios - Last Filed: 09/17/19 16:52> Critical Care Time: 35 minutes (Val Larios) Disposition Decision to Admit Reason: Admit from EC Decision Date: 09/13/19 Decision Time: 20:02 <Karely Corona - Last Filed: 09/13/19 19:58> <Val Larios - Last Filed: 09/17/19 16:52> Clinical Impression: Second degree heart block, Weakness, Acute on chronic renal failure, Hyperkalemia, Elevated troponin Disposition: ADMITTED IP TO THIS HOSP Condition: Serious
[2019-09-13 18:48] LABS: Glucose,Whole Blood 150 mg/dL (75-99)
[2019-09-13 18:48] LABS: Basophils % (A) 0 %; Eosinophils # (A) 0.2 k/uL (0-0.7); Eosinophils % (A) 3 %; HCT 27.3 % (34.0-46.0); HGB 8.6 gm/dL (11.4-16.0); Lymphocytes % (A) 14 %; MCH 33.9 pg (25.0-35.0); MCHC 31.7 g/dL (31.0-37.0); MCV 106.9 fL (80.0-100.0); Macrocytosis Moderate; Mean Platelet Volume 10.2; Monocytes # (A) 0.4 k/uL (0-1.0); Monocytes % (A) 6 %; Neutrophils % (A) 74 %; Platelet Count 253 k/uL (150-450); RBC 2.55 m/uL (3.80-5.40); RDW 14.4 % (11.5-15.5); WBC 6.8 k/uL (3.8-10.6)
--- NOTE | 2019-09-13 19:04 | XR ---
EXAMINATION TYPE: XR chest 2V DATE OF EXAM: 09/13/2019 COMPARISON: Chest x-ray April 19, 2019 HISTORY: Increased weakness. TECHNIQUE: Frontal and lateral views of the chest are obtained. FINDINGS: There is chronic parenteral change in elevated left hemidiaphragm on current study. No pedersen spicious focal airspace opacity, pleural effusion, or pneumothorax seen. Cardiomegaly redemonstrated. Overlying sternal wires and mediastinal clips again seen. The osseous structures remain demineralize d. IMPRESSION: Cardiomegaly and chronic parenchymal changes with new elevated left hemidiaphragm but no new suspicious focal infiltrate.
[2019-09-13 19:08] LABS: Partial Thromboplastin Time 24.1 sec (22.0-30.0); Prothrombin Time 10.2 sec (9.0-12.0)
[2019-09-13 19:14] LABS: Albumin 3.5 g/dL (3.5-5.0); Calcium 9.7 mg/dL (8.4-10.2); Magnesium 2.4 mg/dL (1.6-2.3); Potassium 5.3 mmol/L (3.5-5.1); Total Bilirubin 0.3 mg/dL (0.2-1.3)
[2019-09-13] MEDS ORDERED: SODIUM CHLORIDE 0.9% 500 ML 250 ML IV ONE (19:46)
[2019-09-13] MEDS ORDERED: NALOXONE 0.4 MG/ML 1 ML VIAL IV PRN ×2 (19:49→22:53)
[2019-09-13] MEDS ORDERED: ONDANSETRON 4 MG/2 ML VIAL IVP PRN (19:49)
[2019-09-13] MEDS ORDERED: DEXTROSE 50% SYRINGE 50 ML IVP STA (19:53)
[2019-09-13] MEDS ORDERED: INSULIN REGULAR 100 UNIT/ML VIAL IV ONE (19:53)
--- NOTE | 2019-09-13 20:13 | XR ---
EXAMINATION TYPE: XR knee complete RT DATE OF EXAM: 09/13/2019 CLINICAL HISTORY: Pain and swelling after fall injury. TECHNIQUE: Three views of the right knee are obtained. COMPARISON: None. FINDINGS: Demineralization is present. There is no acute fracture/dislocation evident in the right kn ee. Mild to moderate tricompartment joint space loss without significant spurring. Posterior vascular calcification. Posterior medial surgical clips from venous harvesting procedure. IMPRESSION: There is no acute fracture or dislocation in the right knee.
[2019-09-13] MEDS: SODIUM CHLORIDE 0.9% 1,000 ML IV SCH (20:14)
[2019-09-13] MEDS ORDERED: CALCIUM GLUCONATE 1 GM in SODIUM CHLORIDE 0.9% 100 ML IVPB ONE (20:15)
[2019-09-13] MEDS ORDERED: LIDOCAINE 1% INJ 10MG/ML (20 ML MDV) ONE ×2 (20:32→21:06)
[2019-09-13] MEDS ORDERED: IV FLUID CONTINUATION 1,000 ML IV ONE (20:45)
[2019-09-13] MEDS ORDERED: LIDOCAINE 1% INJ 10MG/ML (20 ML MDV) SQ ONE ×2 (20:58→21:07)
[2019-09-13] MEDS ORDERED: fentaNYL (PF) 50 MCG/ML 2 ML AMP ONE (21:01)
[2019-09-13] MEDS ORDERED: fentaNYL (PF) 50 MCG/ML 2 ML AMP IV ONE (21:03)
[2019-09-13] MEDS ORDERED: MIDAZOLAM 2 MG/2 ML VIAL IV ONE (21:16)
[2019-09-13] MEDS ORDERED: NITROGLYCERIN 0.2MG/HR PATCH TRANSDERM PRN (21:24)
[2019-09-13 21:43] LABS: Glucose,Whole Blood 66 mg/dL (75-99)
[2019-09-13] MEDS ORDERED: cloNIDine HCL 0.1 MG TAB PO SCH (22:00)
--- NOTE | 2019-09-13 22:02 | CONS ---
CONSULTATION CHIEF COMPLAINT: Tiredness, weakness and recurrent falls. This is an 84-year-old lady with history of coronary artery disease, status post CABG, chronic systolic heart failure, mitral regurgitation, renal insufficiency, diabetes and hypertension who presented to hospital complaining of not feeling well and recurrent falls. She was found to be in high-grade AV block with a heart rate of 35 beats per minute, due to which I was called by the emergency room physician. The patient initially came with a heart rate of around 30 to 40 beats. Her potassium came back elevated at 5.3. Hemoglobin is 8.6. Troponin is mildly elevated. She has severely elevated BUN at 83. Creatinine is 2.1. The patient received intravenous dopamine, with some increase in the heart rate, but continued to have high-grade AV block. She also received calcium gluconate and insulin dextrose. We decided to do a temporary transvenous pacemaker on her. I evaluated the patient in the quality assurance qa lab analyst. She appears comfortable at rest, hemodynamically stable. I advised her to undergo a temporary transvenous pacemaker so that we can protect her from symptomatic bradycardia. The patient has been explained risks and benefits. If she requires continued use of temporary pacemaker through night, we should consider doing a permanent pacemaker on her. PAST MEDICAL HISTORY: Past medical history is significant for hypertension, congestive heart failure, mitral regurgitation, coronary artery disease, status post CABG. MEDICATIONS: Medications at home include Ativan, iron, vitamin B12, vitamin C, Nitro-Dur patch, insulin, Apresoline, Cardura, Lipitor, Procardia, Aldactone, Cozaar, Catapres and Lasix. ALLERGIES: The patient is ALLERGIC to MORPHINE and PENICILLIN. FAMILY HISTORY: Family history is negative for premature coronary artery disease. SOCIAL HISTORY: Negative for current smoking, EtOH abuse or drug abuse. REVIEW OF SYSTEMS: HEENT is unremarkable. CARDIAC: As described above. RESPIRATORY: As described above. GI: Negative. GENITOURINARY: Negative. ALLERGY: Negative. IMMUNOLOGY: Negative. SKIN: Negative. MUSCULOSKELETAL: Significant for arthritis. PSYCHOSOCIAL: Negative. ENDOCRINE: Negative. DERMATOLOGY: Negative. CONSTITUTIONAL: Significant for fatigue, tiredness, not feeling well. Rest of the system review is not relevant. PHYSICAL EXAMINATION: Heart rate is 30 beats per minute. Blood pressure is 138/80, respiratory rate is 18. Chest exam reveals good air entry bilaterally. Heart exam reveals first and second heart sounds and a systolic murmur at the apex. There is an ejection systolic murmur in the aorta area and a systolic murmur at the apex. ABDOMEN: Soft. Examination of extremities did not reveal any edema. Peripheral pulses are palpable. LABS: Labs show a hemoglobin of 8.6, potassium 5.3. BUN is 83, creatinine is 2.1. TSH is normal at 4.3. EKG shows high-grade AV block. ASSESSMENT: 1. Symptomatic high-grade AV block. 2. Coronary artery disease, status post coronary artery bypass grafting. 3. Moderate aortic stenosis. 4. History of chronic systolic heart failure. 5. Chronic renal failure. 6. Hyperkalemia. PLAN: I am going to do a temporary transvenous pacemaker on her. MMODL / IJN: [id number] /
[2019-09-13 22:10] LABS: Glucose,Whole Blood 63 mg/dL (75-99)
[2019-09-13 22:46] LABS: Glucose,Whole Blood 103 mg/dL (75-99)
--- NOTE | 2019-09-13 22:52 | PCN ---
PROCEDURE NOTE PROCEDURE: Temporary transvenous pacemaker placement. INDICATION: Symptomatic high-grade AV block. PROCEDURE NOTE: After obtaining informed consent, a temporary transvenous pacemaker was performed via the left femoral vein. I initially attempted vascular access on the right side, but I was unable to access the femoral venous access; hence I proceeded to perform the procedure on the left side. We obtained vascular access using modified Seldinger technique, and a temporary transvenous pacemaker was floated into the right ventricle under fluoroscopic guidance. Adequate pacing and sensing thresholds were obtained. The patient tolerated the procedure well without any obvious immediate complication. I will admit the patient to ICU and she will need a permanent pacemaker tomorrow. MMODL / IJN: [id number] /
[2019-09-14 02:41] LABS: Glucose,Whole Blood 185 mg/dL (75-99)
[2019-09-14 05:06] LABS: Basophils % (A) 0 %; Calcium 9.8 mg/dL (8.4-10.2); Eosinophils # (A) 0.3 k/uL (0-0.7); Eosinophils % (A) 4 %; HCT 28.2 % (34.0-46.0); HGB 9.1 gm/dL (11.4-16.0); Hypochromasia Slight; Lymphocytes # (A) 1.5 k/uL (1.0-4.8); Lymphocytes % (A) 20 %; MCH 33.8 pg (25.0-35.0); MCHC 32.3 g/dL (31.0-37.0); MCV 104.7 fL (80.0-100.0); Macrocytosis Moderate; Magnesium 2.3 mg/dL (1.6-2.3); Mean Platelet Volume 9.6; Monocytes # (A) 0.5 k/uL (0-1.0); Monocytes % (A) 7 %; Neutrophils # (A) 5.1 k/uL (1.3-7.7); Neutrophils % (A) 66 %; Platelet Count 257 k/uL (150-450); Potassium 4.7 mmol/L (3.5-5.1); RBC 2.69 m/uL (3.80-5.40); RDW 13.9 % (11.5-15.5); WBC 7.6 k/uL (3.8-10.6)
[2019-09-14 07:01] LABS: Glucose,Whole Blood 112 mg/dL (75-99)
[2019-09-14] MEDS ORDERED: hydrALAZINE HCL 50 MG TAB PO SCH (07:30)
--- NOTE | 2019-09-14 08:18 | XR ---
EXAMINATION TYPE: XR chest 1V DATE OF EXAM: 09/14/2019 COMPARISON: 09/13/2019 INDICATION: TVP TECHNIQUE: Single frontal view of the chest is obtained. FINDINGS: The heart size is normal. The pulmonary vasculature is normal. There is mild increased lung markings in the right apex and right lower lobe. This is nonspecific. Sl ightly increased from comparison. IMPRESSION: 1. Developing minimal infiltrates within the right lower lobe and possibly right upper lobe.
[2019-09-14] MEDS ORDERED: NIFEdipine XL 90 MG TAB.ER.24 PO SCH (09:00)
[2019-09-14] MEDS: INSULIN ASPART (NovoLOG) 100 UNIT/ML VIAL SQ SCH ×4 (09:09→20:47)
[2019-09-14] MEDS: ALLOPURINOL 100 MG TAB PO SCH (09:15)
[2019-09-14] MEDS: hydrALAZINE HCL 50 MG TAB PO SCH ×2 (09:16→20:46)
--- NOTE | 2019-09-14 09:23 | P.PN ---
Subjective Progress Note Date: 09/14/19 Principal diagnosis: Complete heart block This is a very pleasant 84-year-old female patient was coronary artery disease and status post coronary artery bypass grafting, chronic diastolic congestive heart failure, hypertension, and dyslipidemia, and mitral valve disease, was adm itted to the hospital was frequent falls. She was found to have complete heart block and she underwent yesterday successful placement of transvenous temporary pacemaker by Dr. Roldan. The patient was seen today, September [id number]. She stated that overall she is feeling better. Her pacer was at a threshold of 80 and I decreased that to 50 to see if she is overriding the pacer. She was receiving clonidine as an outpatient and that was stopped. Currently she is not on any AV josie jayde agents. We are going to obtain an echocardiogram was Doppler. She does have a pansystolic murmur at the right and left upper sternal border. I discussed with the patient the details about her symptoms and the findings on the EKG and also I discussed with her that she possibly to undergo permanent pacemaker implantation if her heart rate does not recover. Objective - Vital Signs Vital signs: Vital Signs Temp 97.8 F 09/14/19 08:00 Pulse 65 09/14/19 08:00 Resp 18 09/14/19 08:00 BP 131/56 09/14/19 07:00 Pulse Ox 96 09/14/19 08:00 Intake & Output 09/13/19 09/14/19 09/14/19 18:59 06:59 18:59 Intake Total 1300 240 Output Total 1845 350 Balance -545 -110 Weight 58.513 kg 61.9 kg Intake: IV 1300 240 .9 920 120 Sodium Chloride 0.9% 1, 180 120 000 ml @ 20 mls/hr IV . Q24H [facility] Rx#:[id number] Output: Urine 1845 350 Other: Voiding Method Indwelling Catheter # Voids 1 - Constitutional General appearance: Present: no acute distress - Respiratory Respiratory: bilateral: diminished - Cardiovascular Rhythm: regular Heart sounds: normal: S1, S2 Abnormal Heart Sounds: Present: systolic murmur - Labs CBC & Chem 7: 09/14/19 04:31 09/14/19 04:31 Labs: Abnormal Lab Results - Last 24 Hours (Table) 09/13/19 09/13/19 09/13/19 Range/Units 18:31 18:31 18:31 RBC 2.55 L (3.80-5.40) m/uL Hgb 8.6 L (11.4-16.0) gm/dL Hct 27.3 L (34.0-46.0) % MCV 106.9 H (80.0-100.0) fL Sodium 136 L (137-145) mmol/L Potassium 5.3 H (3.5-5.1) mmol/L Chloride 108 H (98-107) mmol/L Carbon Dioxide (22-30) mmol/L BUN 83 H (7-17) mg/dL Creatinine 2.12 H (0.52-1.04) mg/dL Glucose 137 H (74-99) mg/dL POC Glucose (mg/dL) (75-99) mg/dL Magnesium 2.4 H (1.6-2.3) mg/dL Troponin I 0.035 H* (0.000-0.034) ng/mL Total Protein 6.0 L (6.3-8.2) g/dL 09/13/19 09/13/19 09/13/19 Range/Units 18:45 21:42 22:09 RBC (3.80-5.40) m/uL Hgb (11.4-16.0) gm/dL Hct (34.0-46.0) % MCV (80.0-100.0) fL Sodium (137-145) mmol/L Potassium (3.5-5.1) mmol/L Chloride (98-107) mmol/L Carbon Dioxide (22-30) mmol/L BUN (7-17) mg/dL Creatinine (0.52-1.04) mg/dL Glucose (74-99) mg/dL POC Glucose (mg/dL) 150 H 66 L 63 L (75-99) mg/dL Magnesium (1.6-2.3) mg/dL Troponin I (0.000-0.034) ng/mL Total Protein (6.3-8.2) g/dL 09/13/19 09/14/19 09/14/19 Range/Units 22:45 00:49 02:39 RBC (3.80-5.40) m/uL Hgb (11.4-16.0) gm/dL Hct (34.0-46.0) % MCV (80.0-100.0) fL Sodium (137-145) mmol/L Potassium (3.5-5.1) mmol/L Chloride (98-107) mmol/L Carbon Dioxide (22-30) mmol/L BUN (7-17) mg/dL Creatinine (0.52-1.04) mg/dL Glucose (74-99) mg/dL POC Glucose (mg/dL) 103 H 185 H (75-99) mg/dL Magnesium (1.6-2.3) mg/dL Troponin I 0.045 H* (0.000-0.034) ng/mL Total Protein (6.3-8.2) g/dL 09/14/19 09/14/19 09/14/19 Range/Units 04:31 04:31 04:31 RBC 2.69 L (3.80-5.40) m/uL Hgb 9.1 L (11.4-16.0) gm/dL Hct 28.2 L (34.0-46.0) % MCV 104.7 H (80.0-100.0) fL Sodium (137-145) mmol/L Potassium (3.5-5.1) mmol/L Chloride 111 H (98-107) mmol/L Carbon Dioxide 21 L (22-30) mmol/L BUN 71 H (7-17) mg/dL Creatinine 1.66 H (0.52-1.04) mg/dL Glucose 124 H (74-99) mg/dL POC Glucose (mg/dL) (75-99) mg/dL Magnesium (1.6-2.3) mg/dL Troponin I 0.044 H* (0.000-0.034) ng/mL Total Protein (6.3-8.2) g/dL 09/14/19 Range/Units 06:59 RBC (3.80-5.40) m/uL Hgb (11.4-16.0) gm/dL Hct (34.0-46.0) % MCV (80.0-100.0) fL Sodium (137-145) mmol/L Potassium (3.5-5.1) mmol/L Chloride (98-107) mmol/L Carbon Dioxide (22-30) mmol/L BUN (7-17) mg/dL Creatinine (0.52-1.04) mg/dL Glucose (74-99) mg/dL POC Glucose (mg/dL) 112 H (75-99) mg/dL Magnesium (1.6-2.3) mg/dL Troponin I (0.000-0.034) ng/mL Total Protein (6.3-8.2) g/dL Assessment and Plan Assessment: Assessment #1 coronary artery disease and status post CABG #2 hypertension #3 dyslipidemia Number for complete heart block Plan #1 rule out acute coronary event #2 obtain an echocardiogram was Doppler #3 decrease the threshold of the temporary pacemaker to 50 bpm #5 hold any AV josie jayde agents #6 hold clonidine We'll follow-up with the patient
[2019-09-14] MEDS: DOXAZOSIN 4 MG TAB PO SCH (10:03)
[2019-09-14] MEDS: ACETAMINOPHEN TAB 325 MG TAB PO PRN (10:48)
--- NOTE | 2019-09-14 11:13 | P.HPIM ---
History of Present Illness H&P Date: 09/14/19 This is an 84-year-old female patient of Dr. Bill and Dr. Diana with past medical history of coronary artery disease status post CABG in 2012 followed by myocardial infarction, chronic systolic heart failure, chronic kidney disease stage III, diabetes mellitus type 2 insulin requiring, hyperlipidemia, hypertension, cervical stenosis, chronic back pain. Patient came into [facility] emergency center for generalized weakness and frequent falls. She denies any head injury or loss of consciousness. She did have a fall yesterday when she landed on her buttocks and injured her right knee. No back pain. Patient had worsening symptoms over the last couple of day s. Patient denies any chest pain or shortness of breath. No nausea or vomiting. She has been eating and drinking okay. No fever or chills. Patient was found to have a heart rate in the 30s and 40s with initial EKG a third- degree heart block and second was a sinus bradycardia with a second-degree AV block Mobitz type II. Blood pressure was stable 134/53, afebrile and pulse ox was 100% on room air.. Sodium 136, potassium 5.3, chloride 108, BUN 83 creatinine 2.12, blood sugar 137. Magnesium was 2.4. TSH 4.380. Blood sugar 150. Troponin 0.035. Chest x-ray revealed cardiomegaly and chronic parenchymal changes with new elevated left diaphragm but no new suspicious focal infiltrate. Right knee x-ray showed no acute fracture or dislocation. Patient was given IV dopamine with some increase in her heart rate. She also received calcium gluconate and insulin, dextrose. Cardiology was immediately consult it and a temporary transvenous pacemaker was inserted. Patient was then admitted to the intensive care unit with plan for permanent pacemaker tomorrow. Echocardiogram is pending. Review of Systems Constitutional: Reports fatigue, Reports weakness, Denies anorexia, Denies chills, Denies fever, Denies poor appetite, Denies weight loss Ears, nose, mouth and throat: Denies dysphagia, Denies nasal congestion, Denies nasal discharge, Denies vertigo Cardiovascular: Reports chest pain, reports decreased exercise tolerance, reports dyspnea on exertion, Denies edema, Denies leg edema, Denies lightheadedness, Denies palpitations, Denies syncope Respiratory: Denies cough, Denies cough with sputum, reports dyspnea, Denies excessive sputum, Denies hemoptysis, Denies home oxygen, Denies wheezing Gastrointestinal: Denies nausea, denies vomiting, Denies abdominal pain, Denies diarrhea, Denies loss of appetite Genitourinary: Denies dysuria, Denies urgency, Denies urinary frequency Musculoskeletal: Reports gait dysfunction, Reports muscle weakness, Denies frequent falls, Denies myalgias Integumentary: Denies pruritus, Denies rash, Denies wounds Neurological: Reports gait dysfunction, Reports weakness, Denies burning pain, Denies change in speech, Denies paresthesias, Denies syncope Psychiatric: Denies anxiety, Denies depression Endocrine: Denies fatigue, Denies weight change Past Medical History Past Medical History: Coronary Artery Disease (CAD), Heart Failure, Diabetes Mellitus, GERD/Reflux, Hyperlipidemia, Hypertension, Myocardial Infarction (TX), Osteoarthritis (OA), Renal Disease Additional Past Medical History / Comment(s): History of valvular heart disease with aortic stenosis, moderate mitral regurgitation stenosis, coronary artery disease with previous TX and previous bypass surgery, chronic anemia, chronic osteoarthritis and neck pain, diabetes mellitus, hypertension and hyperlipidemia, 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 She is independent. She uses a walker for ambulation. Smoking Status: Never smoker Past Alcohol Use History: Occasional Additional Past Alcohol Use History / Comment(s): Patient is and lives with her . Past Drug Use History: None Reported - Past Family History Mother Family Medical History: Cancer, Diabetes Mellitus Additional Family Medical History / Comment(s): Mother at age 84 from Alzheimer's, old age. No coronary artery disease, no diabetes, history of breast cancer. Father Family Medical History: Congestive Heart Failure (CHF) Additional Family Medical History / Comment(s): Father in his early 80s from diabetes, occasions. No coronary artery disease. Brother(s) Family Medical History: Cancer (Patient is lives with her , functionally active denies any need a walker or assistance) Additional Family Medical History / Comment(s): Patient had total of 4 brothers. One at 69 from alcohol abuse. One at age 8 from kidney failure, a third brother has of unknown cause. One brother is alive at age 75 with no major medical problems. Sister(s) Additional Family Medical History / Comment(s): Patient has one sister with Crohn's 1 with irritable bowel syndrome. Patient does not have any children. Medications and Allergies Home Medications Medication Instructions Recorded Confirmed Type Allopurinol 100 mg PO DAILY 03/05/14 09/13/19 History Aspirin 162 mg PO DAILY@0800 03/05/14 09/13/19 History Omeprazole 40 mg PO HS 03/05/14 09/13/19 History Ascorbic Acid [Vitamin C] 500 mg PO DAILY@0800 09/24/14 09/13/19 History Atorvastatin [Lipitor] 80 mg PO HS 09/24/14 09/13/19 History Cholecalciferol [Vitamin D3 (25 2,000 unit PO HS 09/24/14 09/13/19 History Mcg = 1000 Iu)] Ferrous Sulfate [Feosol] 325 mg PO HS 09/24/14 09/13/19 History Nitroglycerin 0.2MG/Hr Patch 1 patch TRANSDERM Q24H PRN 09/24/14 09/13/19 History [Nitro-Dur 0.2MG/Hr Patch] hydrALAZINE HCL [Apresoline] 100 mg PO TID-W/MEALS 07/04/17 09/13/19 History Cyanocobalamin [Vitamin B-12] 500 mcg PO HS 04/13/18 09/13/19 History Ubidecarenone [Co Q-10] 200 mg PO HS 04/13/18 09/13/19 History Doxazosin [Cardura] 4 mg PO DAILY 12/10/18 09/13/19 History NIFEdipine XL [Procardia XL] 90 mg PO DAILY 12/10/18 09/13/19 History Losartan [Cozaar] 50 mg PO BID #60 tab 04/20/19 09/13/19 Rx Spironolactone [Aldactone] 25 mg PO DAILY #30 tab 04/20/19 09/13/19 Rx Furosemide [Lasix] 40 mg PO DAILY 09/13/19 09/13/19 History Insulin NPL/Insulin Lispro 5 - 15 unit SQ AC-TID 09/13/19 09/13/19 History [humaLOG MIX 75-25 VIAL] LORazepam [Ativan] 1 - 2 mg PO HS PRN 09/13/19 09/13/19 History cloNIDine HCL [Catapres] 0.1 mg PO TID 09/13/19 09/13/19 History Allergies Allergy/AdvReac Type Severity Reaction Status Date / Time cortisone Allergy Rash/Hives Verified 09/13/19 19:02 morphine Allergy Unknown Verified 09/13/19 19:02 Penicillins Allergy Rash/Hives Verified 09/13/19 19:02 Physical Exam Vitals: Vital Signs Temp Pulse Resp BP Pulse Ox 09/14/19 07:00 70 14 131/56 96 09/14/19 06:00 70 20 130/50 95 09/14/19 05:00 69 15 126/50 97 09/14/19 04:00 97.9 F 70 16 116/50 95 09/14/19 03:00 69 14 126/52 96 09/14/19 02:00 70 12 123/46 97 09/14/19 01:30 69 9 L 120/55 95 09/14/19 01:20 69 22 120/55 92 L 09/14/19 01:10 70 3 L 120/55 95 09/14/19 01:00 70 12 120/55 95 09/14/19 00:50 70 14 115/43 95 09/14/19 00:40 70 7 L 115/43 95 09/14/19 00:30 70 3 L 119/45 95 09/14/19 00:20 70 6 L 119/45 95 09/14/19 00:10 69 9 L 119/45 96 09/14/19 00:00 97.5 F L 70 12 119/45 93 L 09/13/19 23:50 69 5 L 121/49 94 L 09/13/19 23:40 69 8 L 121/49 94 L 09/13/19 23:30 69 9 L 117/53 93 L 09/13/19 23:20 69 7 L 117/53 92 L 09/13/19 23:10 70 7 L 117/53 95 09/13/19 23:00 70 14 117/53 95 09/13/19 22:50 70 16 130/54 97 09/13/19 22:40 66 25 H 130/54 96 09/13/19 22:30 69 12 126/69 96 09/13/19 22:20 69 10 L 126/69 96 09/13/19 22:10 69 8 L 126/69 96 09/13/19 22:00 97.9 F 70 18 126/69 97 09/13/19 21:50 73 4 L 127/58 97 09/13/19 21:40 97 09/13/19 20:38 98.0 F 31 L 16 138/81 98 09/13/19 19:50 39 L 16 135/60 97 09/13/19 18:10 97.6 F 42 L 16 134/53 100 Intake and Output 09/13/19 09/14/19 09/14/19 22:59 06:59 14:59 Intake Total 340 960 120 Output Total 1845 180 Balance 340 -885 -60 Intake: IV 340 960 120 .9 120 800 100 Sodium Chloride 0.9% 1, 20 160 20 000 ml @ 20 mls/hr IV . Q24H [facility] Rx#:[id number] Output: Urine 1845 180 Other: Voiding Method Indwelling Catheter # Voids 1 Weight 60.1 kg 61.9 kg Gen: This is an 84-year-old female. She is resting in ICU bed and appears to be comfortable in no acute distress. HEENT: Head is atraumatic, normocephalic. Pupils equal, round. Sclerae is anicteric. NECK: Supple. No JVD. No lymphadenopathy. No thyromegaly. LUNGS: Clear to auscultation. No wheezes or rhonchi. No intercostal retractions. HEART: Regular rate and rhythm. Systolic murmur. Temporary pacemaker in place. ABDOMEN: Soft. Bowel sounds are present. No masses. No tenderness. EXTREMITIES: 1+ pedal edema. Dorsalis pedis +1 bilaterally. NEUROLOGICAL: Patient is awake, alert and oriented x3. Cranial nerves 2 through 12 are grossly intact. Results CBC & Chem 7: 09/14/19 04:31 09/14/19 04:31 Labs: Abnormal Lab Results - Last 24 Hours (Table) 06/03/20 06/03/20 06/03/20 Range/Units 18:31 18:31 18:31 RBC 2.55 L (3.80-5.40) m/uL Hgb 8.6 L (11.4-16.0) gm/dL Hct 27.3 L (34.0-46.0) % MCV 106.9 H (80.0-100.0) fL Sodium 136 L (137-145) mmol/L Potassium 5.3 H (3.5-5.1) mmol/L Chloride 108 H (98-107) mmol/L Carbon Dioxide (22-30) mmol/L BUN 83 H (7-17) mg/dL Creatinine 2.12 H (0.52-1.04) mg/dL Glucose 137 H (74-99) mg/dL POC Glucose (mg/dL) (75-99) mg/dL Magnesium 2.4 H (1.6-2.3) mg/dL Troponin I 0.035 H* (0.000-0.034) ng/mL Total Protein 6.0 L (6.3-8.2) g/dL 09/13/19 09/13/19 09/13/19 Range/Units 18:45 21:42 22:09 RBC (3.80-5.40) m/uL Hgb (11.4-16.0) gm/dL Hct (34.0-46.0) % MCV (80.0-100.0) fL Sodium (137-145) mmol/L Potassium (3.5-5.1) mmol/L Chloride (98-107) mmol/L Carbon Dioxide (22-30) mmol/L BUN (7-17) mg/dL Creatinine (0.52-1.04) mg/dL Glucose (74-99) mg/dL POC Glucose (mg/dL) 150 H 66 L 63 L (75-99) mg/dL Magnesium (1.6-2.3) mg/dL Troponin I (0.000-0.034) ng/mL Total Protein (6.3-8.2) g/dL 09/13/19 09/14/19 09/14/19 Range/Units 22:45 00:49 02:39 RBC (3.80-5.40) m/uL Hgb (11.4-16.0) gm/dL Hct (34.0-46.0) % MCV (80.0-100.0) fL Sodium (137-145) mmol/L Potassium (3.5-5.1) mmol/L Chloride (98-107) mmol/L Carbon Dioxide (22-30) mmol/L BUN (7-17) mg/dL Creatinine (0.52-1.04) mg/dL Glucose (74-99) mg/dL POC Glucose (mg/dL) 103 H 185 H (75-99) mg/dL Magnesium (1.6-2.3) mg/dL Troponin I 0.045 H* (0.000-0.034) ng/mL Total Protein (6.3-8.2) g/dL 09/14/19 09/14/19 09/14/19 Range/Units 04:31 04:31 04:31 RBC 2.69 L (3.80-5.40) m/uL Hgb 9.1 L (11.4-16.0) gm/dL Hct 28.2 L (34.0-46.0) % MCV 104.7 H (80.0-100.0) fL Sodium (137-145) mmol/L Potassium (3.5-5.1) mmol/L Chloride 111 H (98-107) mmol/L Carbon Dioxide 21 L (22-30) mmol/L BUN 71 H (7-17) mg/dL Creatinine 1.66 H (0.52-1.04) mg/dL Glucose 124 H (74-99) mg/dL POC Glucose (mg/dL) (75-99) mg/dL Magnesium (1.6-2.3) mg/dL Troponin I 0.044 H* (0.000-0.034) ng/mL Total Protein (6.3-8.2) g/dL 09/14/19 Range/Units 06:59 RBC (3.80-5.40) m/uL Hgb (11.4-16.0) gm/dL Hct (34.0-46.0) % MCV (80.0-100.0) fL Sodium (137-145) mmol/L Potassium (3.5-5.1) mmol/L Chloride (98-107) mmol/L Carbon Dioxide (22-30) mmol/L BUN (7-17) mg/dL Creatinine (0.52-1.04) mg/dL Glucose (74-99) mg/dL POC Glucose (mg/dL) 112 H (75-99) mg/dL Magnesium (1.6-2.3) mg/dL Troponin I (0.000-0.034) ng/mL Total Protein (6.3-8.2) g/dL Thrombosis Risk Factor Assmnt - Choose All That Apply Any of the Below Risk Factors Present?: No Other Risk Factors: No Other congenital or acquired thrombophilia - If yes, enter type in comment: No Thrombosis Risk Factor Assessment Level: Very Low Risk Assessment and Plan Plan: 1. Weakness and frequent falls secondary to third-degree heart block and sinus bradycardia with a second-degree AV block Mobitz type II. Cardiology consult appreciated. Patient is maintained in the intensive care unit. Temporary pacemaker has been placed with plan for permanent pacemaker tomorrow. 2. Acute kidney injury with chronic kidney disease stage III. Avoid nephrotoxic agents. 3. Hypertension. Continue Cardura 4 mg daily, hydralazine 50 mg twice daily, Procardia XL 90 mg daily. Hold losartan. 4. History of coronary artery disease status post CABG in 2011. Continue aspirin 81 mg daily, Lipitor 80 mg daily. 5. Valvular heart disease with moderate aortic stenosis, moderate mitral regurgitation, moderate tricuspid regurgitation, severe pulmonary hypertension 6. Hyperlipidemia. Continue Lipitor 80 mg daily. 7. Chronic diastolic heart failure, stable. Hold Lasix, spironolactone. 8. Diabetes mellitus type 2, insulin requiring, uncontrolled with hypoglycemia. Continue NovoLog scale before meals and at bedtime 9. Anemia of chronic disease. Continue ferrous sulfate 325 mg daily 10. Gout, chronic. Continue allopurinol 100 mg daily. 11. Generalized anxiety disorder. 12. Gastroesophageal reflux disease and GI prophylaxis. Continue Protonix. 13. DVT prophylaxis. Patient will be admitted to the hospital for a minimal of 2 night stay. Discharge plan: Return home most likely, possible need for subacute rehab. PT and OT evaluations will be requested after permanent pacemaker placed. Impression and plan of care have been directed as dictated by the signing p get. Talia Schneider nurse practitioner acting as scribe for signing physician.
--- NOTE | 2019-09-14 11:39 | P.CNPUL ---
History of Present Illness Consult date: 09/14/19 Chief complaint: High degree AV block, generalized weakness and falls History of present illness: 84-year-old female patient got admitted intensive care unit after having a transvenous temporary pacemaker in place for a high degree AV block which was essentially second-degree and sometimes third-degree. The patient is known to have coronary artery disease and previous bypass surgery that was done in 2011. 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 This patient was having generalized weakness and frequent falls. She has also fell on her knees which seems to be quite injured. No back injury. Her condition has gotten worse and the patient denied having any chest pain or anginal shortness of breath. She came into the hospital where the patient was found to have significant bradycardia with a heart rate between 30 and 40 with at times it third-degree AV block as stated. Creatinine was at 2.1 which is slightly elevated compared to her baseline and the patient was taken Aldactone and her potassium level was at 5.3. This was stopped. She was also on clonidine on outpatient basis. She was not taking any form of beta blockers or calcium channel blockers. Chest x-ray revealed cardiomegaly and some elevation of the left hemidiaphragm with some mild pulmonary vessel congestion. X-ray of the knee showed no evidence of any fracture. The patient was given IV dopamine which helped her with her heart rate. Her hyperkalemia was treated with a calcium gluconate and insulin dextrose combination. This morning, had evidence of significant rhythm is first degree AV block and heart heart is in the 60s. No plans for permanent pacemaker insertion at this point in time. Potassium level is improved. Renal function is also improved. She is on no pressors for now. Review of Systems Constitutional: Reports fatigue, Reports weakness Eyes: denies as per HPI, denies blurred vision, denies bulging eye, denies decreased vision, denies diplopia, denies discharge, denies dry eye, denies irritation, denies itching, denies pain, denies photophobia, denies loss of peripheral vision, denies loss of vision, denies tunnel vision/blind spots Ears: deny: decreased hearing, ear discharge, earache, tinnitus Ears, nose, mouth and throat: Reports as per HPI Breasts: absent: as per HPI, change in shape, gynecomastia, masses, nipple disch arge, pain, skin changes, swelling Cardiovascular: Reports as per HPI (Slow heart rate, bradycardia, generalized weakness, falls), Reports decreased exercise tolerance Respiratory: Reports as per HPI Gastrointestinal: Reports as per HPI Genitourinary: Reports as per HPI Menstruation: Reports as per HPI Musculoskeletal: Reports frequent falls Musculoskeletal: absent: ankle pain, ankle stiffness, ankle swelling Integumentary: Reports as per HPI Neurological: Reports as per HPI, Reports gait dysfunction Psychiatric: Reports as per HPI Endocrine: Reports as per HPI Hematologic/Lymphatic: Reports as per HPI Allergic/Immunologic: Reports as per HPI 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 She is independent. She uses a walker for ambulation. Smoking Status: Never smoker Past Alcohol Use History: Occasional Additional Past Alcohol Use History / Comment(s): Patient is and lives with her . Past Drug Use History: None Reported - Past Family History Mother Family Medical History: Cancer, Diabetes Mellitus Additional Family Medical History / Comment(s): Mother at age 84 from Alzheimer's, old age. No coronary artery disease, no diabetes, history of breast cancer. Father Family Medical History: Congestive Heart Failure (CHF) Additional Family Medical History / Comment(s): Father in his early 80s from diabetes, occasions. No coronary artery disease. Brother(s) Family Medical History: Cancer (Patient is lives with her , functionally active denies any need a walker or assistance) Additional Family Medical History / Comment(s): Patient had total of 4 brothers. One at 69 from alcohol abuse. One at age 8 from kidney failure, a third brother has of unknown cause. One brother is alive at age 75 with no major medical problems. Sister(s) Additional Family Medical History / Comment(s): Patient has one sister with Crohn's 1 with irritable bowel syndrome. Patient does not have any children. Medications and Allergies Home Medications Medication Instructions Recorded Confirmed Type Allopurinol 100 mg PO DAILY 03/05/14 09/13/19 History Aspirin 162 mg PO DAILY@0800 03/05/14 09/13/19 History Omeprazole 40 mg PO HS 03/05/14 09/13/19 History Ascorbic Acid [Vitamin C] 500 mg PO DAILY@0800 09/24/14 09/13/19 History Atorvastatin [Lipitor] 80 mg PO HS 09/24/14 09/13/19 History Cholecalciferol [Vitamin D3 (25 2,000 unit PO HS 09/24/14 09/13/19 History Mcg = 1000 Iu)] Ferrous Sulfate [Feosol] 325 mg PO HS 09/24/14 09/13/19 History Nitroglycerin 0.2MG/Hr Patch 1 patch TRANSDERM Q24H PRN 09/24/14 09/13/19 History [Nitro-Dur 0.2MG/Hr Patch] hydrALAZINE HCL [Apresoline] 100 mg PO TID-W/MEALS 07/04/17 09/13/19 History Cyanocobalamin [Vitamin B-12] 500 mcg PO HS 04/13/18 09/13/19 History Ubidecarenone [Co Q-10] 200 mg PO HS 04/13/18 09/13/19 History Doxazosin [Cardura] 4 mg PO DAILY 12/10/18 09/13/19 History NIFEdipine XL [Procardia XL] 90 mg PO DAILY 12/10/18 09/13/19 History Losartan [Cozaar] 50 mg PO BID #60 tab 04/20/19 09/13/19 Rx Spironolactone [Aldactone] 25 mg PO DAILY #30 tab 04/20/19 09/13/19 Rx Furosemide [Lasix] 40 mg PO DAILY 09/13/19 09/13/19 History Insulin NPL/Insulin Lispro 5 - 15 unit SQ AC-TID 09/13/19 09/13/19 History [humaLOG MIX 75-25 VIAL] LORazepam [Ativan] 1 - 2 mg PO HS PRN 09/13/19 09/13/19 History cloNIDine HCL [Catapres] 0.1 mg PO TID 09/13/19 09/13/19 History Allergies Allergy/AdvReac Type Severity Reaction Status Date / Time cortisone Allergy Rash/Hives Verified 09/13/19 19:02 morphine Allergy Unknown Verified 09/13/19 19:02 Penicillins Allergy Rash/Hives Verified 09/13/19 19:02 Physical Exam Vitals: Vital Signs Temp Pulse Resp BP Pulse Ox 09/14/19 10:00 65 14 147/45 96 09/14/19 09:00 65 10 L 145/38 96 09/14/19 08:00 97.8 F 65 18 96 09/14/19 07:00 70 14 131/56 96 09/14/19 06:00 70 20 130/50 95 09/14/19 05:00 69 15 126/50 97 09/14/19 04:00 97.9 F 70 16 116/50 95 09/14/19 03:00 69 14 126/52 96 09/14/19 02:00 70 12 123/46 97 09/14/19 01:30 69 9 L 120/55 95 09/14/19 01:20 69 22 120/55 92 L 09/14/19 01:10 70 3 L 120/55 95 09/14/19 01:00 70 12 120/55 95 09/14/19 00:50 70 14 115/43 95 09/14/19 00:40 70 7 L 115/43 95 09/14/19 00:30 70 3 L 119/45 95 09/14/19 00:20 70 6 L 119/45 95 09/14/19 00:10 69 9 L 119/45 96 09/14/19 00:00 97.5 F L 70 12 119/45 93 L 09/13/19 23:50 69 5 L 121/49 94 L 09/13/19 23:40 69 8 L 121/49 94 L 09/13/19 23:30 69 9 L 117/53 93 L 09/13/19 23:20 69 7 L 117/53 92 L 09/13/19 23:10 70 7 L 117/53 95 09/13/19 23:00 70 14 117/53 95 09/13/19 22:50 70 16 130/54 97 09/13/19 22:40 66 25 H 130/54 96 09/13/19 22:30 69 12 126/69 96 09/13/19 22:20 69 10 L 126/69 96 09/13/19 22:10 69 8 L 126/69 96 09/13/19 22:00 97.9 F 70 18 126/69 97 09/13/19 21:50 73 4 L 127/58 97 09/13/19 21:40 97 09/13/19 20:38 98.0 F 31 L 16 138/81 98 09/13/19 19:50 39 L 16 135/60 97 09/13/19 18:10 97.6 F 42 L 16 134/53 100 Intake and Output 09/13/19 09/14/19 09/14/19 22:59 06:59 14:59 Intake Total 340 960 480 Output Total 1845 515 Balance 340 -885 -35 Intake: IV 340 960 480 .9 120 800 160 Sodium Chloride 0.9% 1, 20 160 320 000 ml @ 20 mls/hr IV . Q24H [facility] Rx#:[id number] Output: Urine 1845 515 Other: Voiding Method Indwelling Catheter Indwelling Catheter # Voids 1 Weight 60.1 kg 61.9 kg The patient appeared well nourished and normally developed. Vital signs as documented. Head exam is unremarkable. No scleral icterus or corneal arcus noted. Neck is without jugular venous distension, thyromegaly, or carotid bruits. Carotid upstrokes are brisk bilaterally. Lungs are clear to auscultation and percussion. Cardiac exam reveals the PMI to be normally sized and situated. Rhythm is regular. There is a systolic ejection murmur grade 4/6 heard throughout the precordium mainly in the left lateral sternal border and apex and the patient has also some diastolic rumble. This is consistent with aortic stenosis and some mitral stenosis. Extremities are nonedematous and both femoral and pedal pulses are normal.Examination of the skin revealed no evidence of significant rashes, suspicious appearing nevi or other concerning lesions. Neurologically the patient is awake and alert and is no focal neurological deficits. Results - Laboratory Findings CBC and BMP: 09/14/19 04:31 09/14/19 04:31 PT/INR, D-dimer PT 10.2 sec (9.0-12.0) 09/13/19 18:31 INR 1.0 (<1.2) 09/13/19 18:31 Abnormal lab findings: Abnormal Labs 09/13/19 09/13/19 09/13/19 18:31 18:31 18:31 RBC 2.55 L Hgb 8.6 L Hct 27.3 L MCV 106.9 H Sodium 136 L Potassium 5.3 H Chloride 108 H Carbon Dioxide BUN 83 H Creatinine 2.12 H Glucose 137 H POC Glucose (mg/dL) Magnesium 2.4 H Troponin I 0.035 H* Total Protein 6.0 L 09/13/19 09/13/19 09/13/19 18:45 21:42 22:09 RBC Hgb Hct MCV Sodium Potassium Chloride Carbon Dioxide BUN Creatinine Glucose POC Glucose (mg/dL) 150 H 66 L 63 L Magnesium Troponin I Total Protein 09/13/19 09/14/19 09/14/19 22:45 00:49 02:39 RBC Hgb Hct MCV Sodium Potassium Chloride Carbon Dioxide BUN Creatinine Glucose POC Glucose (mg/dL) 103 H 185 H Magnesium Troponin I 0.045 H* Total Protein 09/14/19 09/14/19 09/14/19 04:31 04:31 04:31 RBC 2.69 L Hgb 9.1 L Hct 28.2 L MCV 104.7 H Sodium Potassium Chloride 111 H Carbon Dioxide 21 L BUN 71 H Creatinine 1.66 H Glucose 124 H POC Glucose (mg/dL) Magnesium Troponin I 0.044 H* Total Protein 09/14/19 06:59 RBC Hgb Hct MCV Sodium Potassium Chloride Carbon Dioxide BUN Creatinine Glucose POC Glucose (mg/dL) 112 H Magnesium Troponin I Total Protein - Diagnostic Findings Chest x-ray: image reviewed Assessment and Plan Plan: 1 severe bradycardia secondary to a second degree AV block/third degree AV block. The patient was noted to be in Mobitz type II. Contributing factors included hyperkalemia and medication. The patient is currently back into a first-degree AV block with a normal sinus rhythm. She has a backup transvenous pacemaker inserted yesterday without any complications. Cardiology is to bud atkins regarding the possibility of a permanent pacemaker insertion. 2 coronary artery disease with previous bypass surgery in 2012 3 valvular heart disease with aortic stenosis and mitral stenosis 4 secondary pulmonary hypertension related to above 5 hypertension with hypertensive heart disease and hypertrophy of the LV 6 chronic stage III kidney disease with an acute kidney injury on top of chronic kidney failure with secondary hyperkalemia, treated and the potassium level is improved and the renal function is also improved 7 diabetes mellitus 8 hyperlipidemia 9 chronic anemia, anemia of chronic disease 10 gout 11 acid reflux Plan Discontinue the clonidine and utilize hydralazine for blood pressure control Discontinue the Aldactone which is contributing to the patient's hyperkalemia Procardia is adequate for now The patient is in normal sinus rhythm There is some underlying first-degree AV block There is an underlying transvenous backup pacemaker No immediate need for a permanent pacemaker for now. This will be left up to cardiology. We'll continue to follow
[2019-09-14 12:05] LABS: Glucose,Whole Blood 221 mg/dL (75-99)
[2019-09-14 15:09] LABS: Hemoglobin A1C 6.5 % (4.0-6.0)
--- NOTE | 2019-09-14 15:31 | ECHOF ---
Referral Reason:mitral regurg MEASUREMENTS -------- HEIGHT: 157.5 cm WEIGHT: 61.7 kg BP: 145/38 IVSd: 2.1 cm (0.6 - 1.1) LVIDd: 3.7 cm (3.9 - 5.3) LVPWd: 2.1 cm (0.6 - 1.1) IVSs: 2.3 cm LVIDs: 2.4 cm LVPWs: 2.1 cm RVIDd: 4.1 cm (< 3.3) LAESV Index (A-L): 67.22 ml/m Ao Diam: 3.1 cm (2.0 - 3.7) AV Cusp: 1.0 cm (1.5 - 2.6) EPSS: 0.1 cm MV E Paco: 1.46 m/s MV DecT: 324 ms MV A Paco: 1.79 m/s MV E/A Ratio: 0.82 AV maxP.94 mmHg AV meanP.55 mmHg RAP: 5.00 mmHg RVSP: 54.05 mmHg MV EF SLOPE: 36.65 mm/s (70 - 150) MV EXCURSION: 15.62 mm (> 18.000) FINDINGS -------- Undetermined rhythm. This was a technically difficult study with suboptimal apical views. The left ventricular size is normal. There is severe concentric left ventricular hypertrophy. Ove rall left ventricular systolic function is mildly impaired with, an EF between 45 - 50 %. Left vent ricular fillimg pressure cannot be estimated due to severe mitral annular calcification. Apical ant erior LV wall motion is hypokinetic. Apical septum LV wall motion is hypokinetic. The right ventricle is moderately enlarged. LA is severely dilated >40 ml/m2 The right atrium is moderately enlarged. Lumason used Interatrial and interventricular septum intact. Moderate to severe aortic stenosis with peak/mean pressure gradient of 58.94mmHg / 30.55mmHg, the aor tic valve area by continuity equation is 0.7cm. Peak/mean gradient across the Aortic Valve is 58.9 4mmHg / 30.55mmHg. Severe mitral annular calcification present. Moderate mitral regurgitation is present. Moderate m itral stenosis , with a MVA of 1.8cm (by PHT) Moderate to severe tricuspid regurgitation present. There is moderate to severe pulmonary hypertens ion. The right ventricular systolic pressure, as measured by Doppler, is 54.05mmHg. Trace/mild (physiologic) pulmonic regurgitation. The aortic root size is normal. Normal inferior vena cava with normal inspiratory collapse consistent with estimated right atrial pre ssure of 5 mmHg. There is no pericardial effusion. CONCLUSIONS -------- 1. Undetermined rhythm. 2. This was a technically difficult study with suboptimal apical views. 3. The left ventricular size is normal. 4. There is severe concentric left ventricular hypertrophy. 5. Overall left ventricular systolic function is mildly impaired with, an EF between 45 - 50 %. 6. Left ventricular fillimg pressure cannot be estimated due to severe mitral annular calcification. 7. Apical anterior LV wall motion is hypokinetic. 8. Apical septum LV wall motion is hypokinetic. 9. The right ventricle is moderately enlarged. 10. LA is severely dilated >40 ml/m2 11. The right atrium is moderately enlarged. 12. Lumason used 13. Interatrial and interventricular septum intact. 14. Moderate to severe aortic stenosis with peak/mean pressure gradient of 58.94mmHg / 30.55mmHg, the aortic valve area by continuity equation is 0.7cm. 15. Peak/mean gradient across the Aortic Valve is 58.94mmHg / 30.55mmHg. 16. Severe mitral annular calcification present. 17. Moderate mitral regurgitation is present. 18. Moderate mitral stenosis. 19. , with a MVA of 1.8cm (by PHT) 20. Moderate to severe tricuspid regurgitation present. 21. There is moderate to severe pulmonary hypertension. 22. The right ventricular systolic pressure, as measured by Doppler, is 54.05mmHg. 23. Trace/mild (physiologic) pulmonic regurgitation. 24. The aortic root size is normal. 25. Normal inferior vena cava with normal inspiratory collapse consistent with estimated right atrial pressure of 5 mmHg. 26. There is no pericardial effusion. NANOSCIENCE TECHNICIAN: Eboni Mireles RDCS
[2019-09-14 16:38] LABS: Glucose,Whole Blood 167 mg/dL (75-99)
[2019-09-14] MEDS: SODIUM CHLORIDE 0.9% 1,000 ML IV SCH ×2 (17:50)
[2019-09-14 20:23] LABS: Glucose,Whole Blood 156 mg/dL (75-99)
[2019-09-14] MEDS: FERROUS SULFATE 325 MG TAB PO SCH (20:46)
[2019-09-14] MEDS: PANTOPRAZOLE 40 MG TABLET PO SCH (20:46)
[2019-09-14] MEDS: ATORVASTATIN 80 MG TAB PO SCH (20:47)
[2019-09-14] MEDS: CHOLECALCIFEROL 1,000 UNIT TAB PO SCH (20:47)
[2019-09-14] MEDS: CYANOCOBALAMIN 500 MCG TAB PO SCH (20:47)
[2019-09-15] MEDS: ACETAMINOPHEN TAB 325 MG TAB PO PRN (01:12)
[2019-09-15 05:48] LABS: Basophils % (A) 0 %; Eosinophils # (A) 0.3 k/uL (0-0.7); Eosinophils % (A) 4 %; HCT 31.2 % (34.0-46.0); HGB 9.9 gm/dL (11.4-16.0); Hypochromasia Slight; Lymphocytes # (A) 1.3 k/uL (1.0-4.8); Lymphocytes % (A) 16 %; MCH 33.9 pg (25.0-35.0); MCHC 31.7 g/dL (31.0-37.0); Macrocytosis Moderate; Mean Platelet Volume 8.8; Monocytes # (A) 0.5 k/uL (0-1.0); Monocytes % (A) 5 %; Neutrophils # (A) 6.1 k/uL (1.3-7.7); Neutrophils % (A) 73 %; Platelet Count 284 k/uL (150-450); RBC 2.91 m/uL (3.80-5.40); RDW 14.1 % (11.5-15.5); WBC 8.4 k/uL (3.8-10.6)
[2019-09-15 06:07] LABS: Calcium 9.5 mg/dL (8.4-10.2); Potassium 4.7 mmol/L (3.5-5.1)
[2019-09-15 06:53] LABS: Glucose,Whole Blood 150 mg/dL (75-99)
--- NOTE | 2019-09-15 07:52 | P.PN ---
Subjective Progress Note Date: 09/15/19 Principal diagnosis: Complete heart block This is a very pleasant 84-year-old female patient was coronary artery disease and status post coronary artery bypass grafting, chronic diastolic congestive heart failure, hypertension, and dyslipidemia, and mitral valve disease, was adm itted to the hospital was frequent falls. She was found to have complete heart block and she underwent yesterday successful placement of transvenous temporary pacemaker by Dr. Roldan. The patient was seen today, September 142019. Overall she is feeling better. Her resting heart rate seems to be in the 80s and 90s and she is overriding the pacemaker. I advised continue monitoring the patient in the intensive care unit for additional 24 hours before we pulled the transvenous pacer out. Continue holding any AV josie jayde agents at this point. The troponin came in to be slightly elevated but she does have abnormal kidney function. The echo revealed mildly impaired EF around 45%. Objective - Vital Signs Vital signs: Vital Signs Temp 98.0 F 09/15/19 04:00 Pulse 55 L 09/15/19 07:00 Resp 17 09/15/19 07:00 BP 157/87 09/15/19 07:00 Pulse Ox 96 09/15/19 07:00 Intake & Output 09/14/19 09/15/19 09/15/19 18:59 06:59 18:59 Intake Total 1715 1440 120 Output Total 1025 1175 125 Balance 690 265 -5 Weight 65.6 kg Intake: IV 1440 1440 120 .9 1200 1200 100 Sodium Chloride 0.9% 1, 240 240 20 000 ml @ 20 mls/hr IV . Q24H [facility] Rx#:[id number] Oral 275 Output: Urine 1025 1175 125 Other: Voiding Method Indwelling Catheter Indwelling Catheter - Constitutional General appearance: Present: no acute distress - Respiratory Respiratory: bilateral: CTA - Cardiovascular Rhythm: regular Heart sounds: normal: S1, S2 - Labs CBC & Chem 7: 09/15/19 05:36 09/15/19 05:36 Labs: Abnormal Lab Results - Last 24 Hours (Table) 09/14/19 09/14/19 09/14/19 Range/Units 04:31 12:04 16:35 RBC (3.80-5.40) m/uL Hgb (11.4-16.0) gm/dL Hct (34.0-46.0) % MCV (80.0-100.0) fL Chloride (98-107) mmol/L Carbon Dioxide (22-30) mmol/L BUN (7-17) mg/dL Creatinine (0.52-1.04) mg/dL Glucose (74-99) mg/dL POC Glucose (mg/dL) 221 H 167 H (75-99) mg/dL Hemoglobin A1c 6.5 H (4.0-6.0) % 09/14/19 09/15/19 09/15/19 Range/Units 20:21 05:36 05:36 RBC 2.91 L (3.80-5.40) m/uL Hgb 9.9 L (11.4-16.0) gm/dL Hct 31.2 L (34.0-46.0) % MCV 107.0 H (80.0-100.0) fL Chloride 119 H (98-107) mmol/L Carbon Dioxide 20 L (22-30) mmol/L BUN 48 H (7-17) mg/dL Creatinine 1.27 H (0.52-1.04) mg/dL Glucose 133 H (74-99) mg/dL POC Glucose (mg/dL) 156 H (75-99) mg/dL Hemoglobin A1c (4.0-6.0) % 09/15/19 Range/Units 06:52 RBC (3.80-5.40) m/uL Hgb (11.4-16.0) gm/dL Hct (34.0-46.0) % MCV (80.0-100.0) fL Chloride (98-107) mmol/L Carbon Dioxide (22-30) mmol/L BUN (7-17) mg/dL Creatinine (0.52-1.04) mg/dL Glucose (74-99) mg/dL POC Glucose (mg/dL) 150 H (75-99) mg/dL Hemoglobin A1c (4.0-6.0) % Assessment and Plan Assessment: Assessment #1 complete heart block which has resolved #2 coronary artery disease and status post revascularization #3 valvular heart disease #4 multiple comorbid conditions Plan #1 continue holding any AV josie jayde agents #2 continue monitoring the patient in the ICU for additional 24 hours #3 keep the temporary pacemaker for additional 24 hours #4 the troponin is a slightly elevated. I'm going to add small dose of aspirin #5 the echo revealed mildly impaired LV function #6 follow-up with the patient
[2019-09-15] MEDS ORDERED: LORazepam 0.5 MG TAB PO STA (08:55)
[2019-09-15] MEDS: DOXAZOSIN 4 MG TAB PO SCH (08:57)
[2019-09-15] MEDS: ASPIRIN 81 MG PO SCH (08:57)
[2019-09-15] MEDS: ALLOPURINOL 100 MG TAB PO SCH (08:57)
[2019-09-15] MEDS: SENNOSIDES-DOCUSATE SODIUM 1 EACH TAB PO SCH (08:57)
[2019-09-15] MEDS: hydrALAZINE HCL 50 MG TAB PO SCH ×2 (08:58→20:30)
[2019-09-15] MEDS: INSULIN ASPART (NovoLOG) 100 UNIT/ML VIAL SQ SCH ×4 (08:58→20:56)
[2019-09-15] MEDS: SODIUM CHLORIDE 0.9% 1,000 ML IV SCH ×3 (08:59→20:32)
[2019-09-15 11:48] LABS: Glucose,Whole Blood 144 mg/dL (75-99)
--- NOTE | 2019-09-15 11:48 | P.PN ---
Subjective Progress Note Date: 09/15/19 84-year-old female patient got admitted intensive care unit after having a transvenous temporary pacemaker in place for a high degree AV block which was essentially second-degree and sometimes third-degree. The patient is known to have coronary artery disease and previous bypass surgery that was done in 2011. 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 This patient was having generalized weakness and frequent falls. She has also fell on her knees which seems to be quite injured. No back injury. Her condition has gotten worse and the patient denied having any chest pain or anginal shortness of breath. She came into the hospital where the patient was found to have significant bradycardia with a heart rate between 30 and 40 with at times it third-degree AV block as stated. Creatinine was at 2.1 which is slightly elevated compared to her baseline and the patient was taken Aldactone and her potassium level was at 5.3. This was stopped. She was also on clonidine on outpatient basis. She was not taking any form of beta blockers or calcium channel blockers. Chest x-ray revealed cardiomegaly and some elevation of the left hemidiaphragm with some mild pulmonary vessel congestion. X-ray of the knee showed no evidence of any fracture. The patient was given IV dopamine which helped her with her heart rate. Her hyperkalemia was treated with a calcium gluconate and insulin dextrose combination. This morning, had evidence of significant rhythm is first degree AV block and heart heart is in the 60s. No plans for permanent pacemaker insertion at this point in time. Potassium level is improved. Renal function is also improved. She is on no pressors for now. On today's evaluation of 09/15/2019, the patient is having a heart rate between 80 and 90. The patient is in normal sinus rhythm. The branch examiner opted to keep him in ICU for another 24 hours for monitoring and there are no plans for permanent pacemaker insertion. Another 24 hour monitoring will be done prior to removing the transvenous pacemaker. Ejection fraction is 45%. She is a bit anxious as the patient takes Ativan twice a day even on outpatient basis. He is known to have CAD, diastolic heart failure hypertension and hyperlipidemia. She also has valvular heart disease with aortic and mitral stenosis. There is function is improved and the creatinine is down to 1.2. Potassium level is down to 4.7. She is receiving normal saline and I'm going to cut down the IV fluids to KVO. Objective - Vital Signs Vital signs: Vital Signs Temp 98.1 F 09/15/19 08:00 Pulse 68 09/15/19 11:00 Resp 10 L 09/15/19 11:00 BP 156/86 09/15/19 10:00 Pulse Ox 96 09/15/19 11:00 Intake & Output 09/14/19 09/15/19 09/15/19 18:59 06:59 18:59 Intake Total 1715 1440 460 Output Total 1025 1175 805 Balance 690 265 -345 Weight 65.6 kg Intake: IV 1440 1440 360 .9 1200 1200 260 Sodium Chloride 0.9% 1, 240 240 100 000 ml @ 20 mls/hr IV . Q24H [facility] Rx#:[id number] Oral 275 100 Output: Urine 1025 1175 805 Other: Voiding Method Indwelling Catheter Indwelling Catheter Indwelling Catheter # Voids 1 - Exam The patient appeared well nourished and normally developed. Vital signs as documented. Head exam is unremarkable. No scleral icterus or corneal arcus noted. Neck is without jugular venous distension, thyromegaly, or carotid bruits. Carotid upstrokes are brisk bilaterally. Lungs are clear to auscultation and percussion. Cardiac exam reveals the PMI to be normally sized and situated. Rhythm is regular. There is a systolic ejection murmur grade 4/6 heard th roughout the precordium mainly in the left lateral sternal border and apex and the patient has also some diastolic rumble. This is consistent with aortic stenosis and some mitral stenosis. Extremities are nonedematous and both femoral and pedal pulses are normal.Examination of the skin revealed no evidence of significant rashes, suspicious appearing nevi or other concerning lesions. Neurologically the patient is awake and alert and is no focal neurological deficits. - Labs CBC & Chem 7: 09/15/19 05:36 09/15/19 05:36 Labs: Abnormal Lab Results - Last 24 Hours (Table) 09/14/19 09/14/19 09/14/19 Range/Units 04:31 12:04 16:35 RBC (3.80-5.40) m/uL Hgb (11.4-16.0) gm/dL Hct (34.0-46.0) % MCV (80.0-100.0) fL Chloride (98-107) mmol/L Carbon Dioxide (22-30) mmol/L BUN (7-17) mg/dL Creatinine (0.52-1.04) mg/dL Glucose (74-99) mg/dL POC Glucose (mg/dL) 221 H 167 H (75-99) mg/dL Hemoglobin A1c 6.5 H (4.0-6.0) % 09/14/19 09/15/19 09/15/19 Range/Units 20:21 05:36 05:36 RBC 2.91 L (3.80-5.40) m/uL Hgb 9.9 L (11.4-16.0) gm/dL Hct 31.2 L (34.0-46.0) % MCV 107.0 H (80.0-100.0) fL Chloride 119 H (98-107) mmol/L Carbon Dioxide 20 L (22-30) mmol/L BUN 48 H (7-17) mg/dL Creatinine 1.27 H (0.52-1.04) mg/dL Glucose 133 H (74-99) mg/dL POC Glucose (mg/dL) 156 H (75-99) mg/dL Hemoglobin A1c (4.0-6.0) % 09/15/19 Range/Units 06:52 RBC (3.80-5.40) m/uL Hgb (11.4-16.0) gm/dL Hct (34.0-46.0) % MCV (80.0-100.0) fL Chloride (98-107) mmol/L Carbon Dioxide (22-30) mmol/L BUN (7-17) mg/dL Creatinine (0.52-1.04) mg/dL Glucose (74-99) mg/dL POC Glucose (mg/dL) 150 H (75-99) mg/dL Hemoglobin A1c (4.0-6.0) % Assessment and Plan Plan: 1 severe bradycardia secondary to a second degree AV block/third degree AV block. The patient was noted to be in Mobitz type II. Contributing factors included hyperkalemia and medication. The patient is currently back into a first-degree AV block with a normal sinus rhythm. She has a backup transvenous pacemaker inserted yesterday without any complications. Cardiology is to consult regarding the possibility of a permanent pacemaker insertion. 2 coronary artery disease with previous bypass surgery in 2011 3 valvular heart disease with aortic stenosis and mitral stenosis 4 secondary pulmonary hypertension related to above 5 hypertension with hypertensive heart disease and hypertrophy of the LV 6 chronic stage III kidney disease with an acute kidney injury on top of chronic kidney failure with secondary hyperkalemia, treated and the potassium level is improved and the renal function is also improved 7 diabetes mellitus 8 hyperlipidemia 9 chronic anemia, anemia of chronic disease 10 gout 11 acid reflux Plan The patient has recovered and there is no plans for permanent pacemaker insertion Monitor the patient for another 24 hours prior to removing the transvenous pacemaker Potassium level is normalized Renal function is improved Cardiac rhythm is sinus IV fluids will be cut down to KVO We'll monitor in the ICU for 24 hours Echo was noted Head Usher on the case.
--- NOTE | 2019-09-15 15:13 | P.PN ---
<Talia Schneider A - Last Filed: 09/15/19 15:09> Subjective Progress Note Date: 09/15/19 This is an 84-year-old female patient of Dr. Bill and Dr. Diana with past medical history of coronary artery disease status post CABG in 2012 followed by myocardial infarction, chronic systolic heart failure, chronic kidney disease stage III, diabetes mellitus type 2 insulin requiring, hyperlipidemia, hypertension, cervical stenosis, chronic back pain. Patient came into [facility] emergency center for generalized weakness and frequent falls. She denies any head injury or loss of consciousness. She did have a fall yesterday when she landed on her buttocks and injured her right knee. No back pain. Patient had worsening symptoms over the last couple of days. Patient denies any chest pain or shortness of breath. No nausea or vomiting. She has been eating and drinking okay. No fever or chills. Patient was found to have a heart rate in the 30s and 40s with initial EKG a third- degree heart block and second was a sinus bradycardia with a second-degree AV block Mobitz type II. Blood pressure was stable 134/53, afebrile and pulse ox was 100% on room air.. Sodium 136, potassium 5.3, chloride 108, BUN 83 creatinine 2.12, blood sugar 137. Magnesium was 2.4. TSH 4.380. Blood sugar 150. Troponin 0.035. Chest x-ray revealed cardiomegaly and chronic parenchymal changes with new elevated left diaphragm but no new suspicious focal infiltrate. Right knee x-ray showed no acute fracture or dislocation. Patient was given IV dopamine with some increase in her heart rate. She also received calcium gluconate and insulin, dextrose. Cardiology was immediately consult it and a temporary transvenous pacemaker was inserted. Patient was then admitted to the intensive care unit with plan for permanent pacemaker tomorrow. Echocardiogram is pending. 09/14: Patient denies any new complaints. She has been seen by Dr. Baker this morning and her heart rate was running in the 80s and 90s overriding the pacemaker. Patient has been in a normal sinus rhythm. Plan is to monitor the patient in the intensive care unit for another 24 hours and pulled the transvenous pacer. Repeat blood work reveals WBC 8.4, hemoglobin 9.9, BUN 14 creatinine 1.27. Blood sugars are running between 133 and 167. Echocardiogram reveals EF 45-50%, severe concentric left ventricular hypertrophy, LA severely dilated greater than 40, moderate to severe aortic stenosis, moderate mitral regurgitation, moderate mitral stenosis, moderate to severe tricuspid regurgitation, moderate to severe pulmonary hypertension. Discharge plan will be home with VNA. Objective - Vital Signs Vital signs: Vital Signs Temp 98.0 F 09/15/19 04:00 Pulse 55 L 09/15/19 07:00 Resp 17 09/15/19 07:00 BP 157/87 09/15/19 07:00 Pulse Ox 96 09/15/19 07:00 Intake & Output 09/14/19 09/15/19 09/15/19 18:59 06:59 18:59 Intake Total 1715 1440 120 Output Total 1025 1175 125 Balance 690 265 -5 Weight 65.6 kg Intake: IV 1440 1440 120 .9 1200 1200 100 Sodium Chloride 0.9% 1, 240 240 20 000 ml @ 20 mls/hr IV . Q24H [facility] Rx#:[id number] Oral 275 Output: Urine 1025 1175 125 Other: Voiding Method Indwelling Catheter Indwelling Catheter - Exam Review of Systems Constitutional: Reports fatigue improved, Reports weakness, Denies anorexia, Denies chills, Denies fever, Denies poor appetite, Denies weight loss Ears, nose, mouth and throat: Denies dysphagia, Denies nasal congestion, Denies nasal discharge, Denies vertigo Cardiovascular: Reports chest pain, reports decreased exercise tolerance, reports dyspnea on exertion, Denies edema, Denies leg edema, Denies lightheadedness, Denies palpitations, Denies syncope Respiratory: Denies cough, Denies cough with sputum, reports dyspnea, Denies excessive sputum, Denies hemoptysis, Denies home oxygen, Denies wheezing Gastrointestinal: Denies nausea, denies vomiting, Denies abdominal pain, Denies diarrhea, Denies loss of appetite Genitourinary: Denies dysuria, Denies urgency, Denies urinary frequency Musculoskeletal: Reports gait dysfunction, Reports muscle weakness, Denies frequent falls, Denies myalgias Integumentary: Denies pruritus, Denies rash, Denies wounds Neurological: Reports gait dysfunction, Reports weakness, Denies burning pain, Denies change in speech, Denies paresthesias, Denies syncope Psychiatric: Denies anxiety, Denies depression Endocrine: Denies fatigue, Denies weight change Physical Examination Gen: This is an 84-year-old female. She is resting in ICU bed and appears to be comfortable. HEENT: Head is atraumatic, normocephalic. Pupils equal, round. Sclerae is anicteric. NECK: Supple. No JVD. No lymphadenopathy. No thyromegaly. LUNGS: Clear to auscultation. No wheezes or rhonchi. No intercostal retractions. HEART: Regular rate and rhythm. Systolic murmur. Temporary pacemaker in place. ABDOMEN: Soft. Bowel sounds are present. No masses. No tenderness. EXTREMITIES: 1+ pedal edema. Dorsalis pedis +1 bilaterally. NEUROLOGICAL: Patient is awake, alert and oriented x3. Cranial nerves 2 through 12 are grossly intact. - Labs CBC & Chem 7: 09/15/19 05:36 09/15/19 05:36 Labs: Abnormal Lab Results - Last 24 Hours (Table) 09/14/19 09/14/19 09/14/19 Range/Units 04:31 12:04 16:35 RBC (3.80-5.40) m/uL Hgb (11.4-16.0) gm/dL Hct (34.0-46.0) % MCV (80.0-100.0) fL Chloride (98-107) mmol/L Carbon Dioxide (22-30) mmol/L BUN (7-17) mg/dL Creatinine (0.52-1.04) mg/dL Glucose (74-99) mg/dL POC Glucose (mg/dL) 221 H 167 H (75-99) mg/dL Hemoglobin A1c 6.5 H (4.0-6.0) % 09/14/19 09/15/19 09/15/19 Range/Units 20:21 05:36 05:36 RBC 2.91 L (3.80-5.40) m/uL Hgb 9.9 L (11.4-16.0) gm/dL Hct 31.2 L (34.0-46.0) % MCV 107.0 H (80.0-100.0) fL Chloride 119 H (98-107) mmol/L Carbon Dioxide 20 L (22-30) mmol/L BUN 48 H (7-17) mg/dL Creatinine 1.27 H (0.52-1.04) mg/dL Glucose 133 H (74-99) mg/dL POC Glucose (mg/dL) 156 H (75-99) mg/dL Hemoglobin A1c (4.0-6.0) % 09/15/19 Range/Units 06:52 RBC (3.80-5.40) m/uL Hgb (11.4-16.0) gm/dL Hct (34.0-46.0) % MCV (80.0-100.0) fL Chloride (98-107) mmol/L Carbon Dioxide (22-30) mmol/L BUN (7-17) mg/dL Creatinine (0.52-1.04) mg/dL Glucose (74-99) mg/dL POC Glucose (mg/dL) 150 H (75-99) mg/dL Hemoglobin A1c (4.0-6.0) % Assessment and Plan Plan: 1. Weakness and frequent falls secondary to third-degree heart block and sinus bradycardia with a second-degree AV block Mobitz type II. Cardiology consult appreciated. Patient is maintained in the intensive care unit. Temporary pacemaker has been placed and patient to be monitored another 24 hours and this time per pacemaker may be pulled. Patient may not require permanent pacemaker. 2. Acute kidney injury with chronic kidney disease stage III. Avoid nephrotoxic agents. 3. Hypertension. Continue Cardura 4 mg daily, hydralazine 50 mg twice daily, Procardia XL 90 mg daily. Hold losartan. 4. History of coronary artery disease status post CABG in 2011. Continue aspirin 81 mg daily, Lipitor 80 mg daily. 5. Valvular heart disease with moderate aortic stenosis, moderate mitral regurgitation, moderate tricuspid regurgitation, severe pulmonary hypertension 6. Hyperlipidemia. Continue Lipitor 80 mg daily. 7. Chronic diastolic heart failure, stable. Hold Lasix, spironolactone. 8. Diabetes mellitus type 2, insulin requiring, uncontrolled with hypoglycemia. Continue NovoLog scale before meals and at bedtime 9. Anemia of chronic disease. Continue ferrous sulfate 325 mg daily 10. Gout, chronic. Continue allopurinol 100 mg daily. 11. Generalized anxiety disorder. 12. Gastroesophageal reflux disease and GI prophylaxis. Continue Protonix. 13. DVT prophylaxis. Discharge plan: Return home with VNA. Impression and plan of care have been directed as dictated by the signing physician. Talia Schneider nurse practitioner acting as scribe for signing physician. <Fly,Emad - Last Filed: 09/16/19 00:13> Objective - Vital Signs Vital signs: Vital Signs Temp 97.9 F 09/16/19 00:00 Pulse 67 09/16/19 00:00 Resp 12 09/16/19 00:00 BP 160/64 09/16/19 00:00 Pulse Ox 94 L 09/16/19 00:00 Intake & Output 09/15/19 09/15/19 09/16/19 06:59 18:59 06:59 Intake Total 1440 890 300 Output Total 1175 1285 585 Balance 265 -862 -102 Weight 65.6 kg Intake: IV 1440 640 240 .9 1200 400 120 Sodium Chloride 0.9% 1, 240 240 120 000 ml @ 20 mls/hr IV . Q24H [facility] Rx#:[id number] Oral 250 60 Output: Urine 1175 1285 585 Other: Voiding Method Indwelling Catheter Indwelling Catheter Indwelling Catheter - Labs CBC & Chem 7: 09/15/19 05:36 09/15/19 05:36 Labs: Abnormal Lab Results - Last 24 Hours (Table) 09/15/19 09/15/19 09/15/19 Range/Units 05:36 05:36 06:52 RBC 2.91 L (3.80-5.40) m/uL Hgb 9.9 L (11.4-16.0) gm/dL Hct 31.2 L (34.0-46.0) % MCV 107.0 H (80.0-100.0) fL Chloride 119 H (98-107) mmol/L Carbon Dioxide 20 L (22-30) mmol/L BUN 48 H (7-17) mg/dL Creatinine 1.27 H (0.52-1.04) mg/dL Glucose 133 H (74-99) mg/dL POC Glucose (mg/dL) 150 H (75-99) mg/dL 09/15/19 09/15/19 09/15/19 Range/Units 11:35 17:04 20:34 RBC (3.80-5.40) m/uL Hgb (11.4-16.0) gm/dL Hct (34.0-46.0) % MCV (80.0-100.0) fL Chloride (98-107) mmol/L Carbon Dioxide (22-30) mmol/L BUN (7-17) mg/dL Creatinine (0.52-1.04) mg/dL Glucose (74-99) mg/dL POC Glucose (mg/dL) 144 H 168 H 181 H (75-99) mg/dL
[2019-09-15 17:07] LABS: Glucose,Whole Blood 168 mg/dL (75-99)
[2019-09-15] MEDS: PANTOPRAZOLE 40 MG TABLET PO SCH (20:30)
[2019-09-15] MEDS: CYANOCOBALAMIN 500 MCG TAB PO SCH (20:30)
[2019-09-15] MEDS: LORazepam 1 MG TAB PO PRN (20:30)
[2019-09-15] MEDS: ATORVASTATIN 80 MG TAB PO SCH (20:30)
[2019-09-15] MEDS: FERROUS SULFATE 325 MG TAB PO SCH (20:31)
[2019-09-15] MEDS: CHOLECALCIFEROL 1,000 UNIT TAB PO SCH (20:31)
[2019-09-15 20:36] LABS: Glucose,Whole Blood 181 mg/dL (75-99)
[2019-09-15] MEDS: POLYETHYLENE GLYCOL 3350 17 GM POWD.PACK PO SCH (20:54)
[2019-09-16 05:40] LABS: Basophils % (A) 0 %; Eosinophils # (A) 0.4 k/uL (0-0.7); Eosinophils % (A) 5 %; HGB 9.9 gm/dL (11.4-16.0); Hypochromasia Slight; Lymphocytes # (A) 1.3 k/uL (1.0-4.8); Lymphocytes % (A) 16 %; MCH 32.6 pg (25.0-35.0); MCV 105.1 fL (80.0-100.0); Macrocytosis Moderate; Mean Platelet Volume 9.3; Monocytes # (A) 0.5 k/uL (0-1.0); Monocytes % (A) 6 %; Neutrophils # (A) 5.7 k/uL (1.3-7.7); Neutrophils % (A) 70 %; Platelet Count 267 k/uL (150-450); RBC 3.04 m/uL (3.80-5.40); RDW 14.2 % (11.5-15.5); WBC 8.1 k/uL (3.8-10.6)
[2019-09-16 05:50] LABS: Albumin 3.2 g/dL (3.5-5.0); Calcium 9.7 mg/dL (8.4-10.2); Magnesium 2.1 mg/dL (1.6-2.3); Potassium 4.7 mmol/L (3.5-5.1); Total Bilirubin 0.6 mg/dL (0.2-1.3)
[2019-09-16 09:05] LABS: Glucose,Whole Blood 145 mg/dL (75-99)
[2019-09-16] MEDS ORDERED: LORazepam 1 MG TAB PO STA (09:33)
[2019-09-16] MEDS: LOSARTAN 50 MG TAB PO SCH ×2 (09:40→21:30)
[2019-09-16] MEDS: ALLOPURINOL 100 MG TAB PO SCH (09:40)
[2019-09-16] MEDS: DOXAZOSIN 4 MG TAB PO SCH (09:40)
[2019-09-16] MEDS: hydrALAZINE HCL 50 MG TAB PO SCH ×3 (09:40→21:30)
[2019-09-16] MEDS: INSULIN ASPART (NovoLOG) 100 UNIT/ML VIAL SQ SCH ×4 (09:40→21:46)
[2019-09-16] MEDS: SENNOSIDES-DOCUSATE SODIUM 1 EACH TAB PO SCH (09:40)
[2019-09-16] MEDS: ASPIRIN 81 MG PO SCH (09:40)
--- NOTE | 2019-09-16 09:45 | P.PN ---
Subjective Progress Note Date: 09/16/19 This is an 84-year-old female patient of Dr. Bill and Dr. Diana with past medical history of coronary artery disease status post CABG in 2012 followed by myocardial infarction, chronic systolic heart failure, chronic kidney disease stage III, diabetes mellitus type 2 insulin requiring, hy perlipidemia, hypertension, cervical stenosis, chronic back pain. Patient came into [facility] emergency center for generalized weakness and frequent falls. She denies any head injury or loss of consciousness. She did have a fall yesterday when she landed on her buttocks and injured her right knee. No back pain. Patient had worsening symptoms over the last couple of days. Patient denies any chest pain or shortness of breath. No nausea or vomiting. She has been eating and drinking okay. No fever or chills. Patient was found to have a heart rate in the 30s and 40s with initial EKG a third- degree heart block and second was a sinus bradycardia with a second-degree AV b lock Mobitz type II. Blood pressure was stable 134/53, afebrile and pulse ox was 100% on room air.. Sodium 136, potassium 5.3, chloride 108, BUN 83 creatinine 2.12, blood sugar 137. Magnesium was 2.4. TSH 4.380. Blood sugar 150. Troponin 0.035. Chest x-ray revealed cardiomegaly and chronic parenchymal changes with new elevated left diaphragm but no new suspicious focal infiltrate. Right knee x-ray showed no acute fracture or dislocation. Patient was given IV dopamine with some increase in her heart rate. She also received calcium gluconate and insulin, dextrose. Cardiology was immediately consult it and a temporary transvenous pacemaker was inserted. Patient was then admitted to the intensive care unit with plan for permanent pacemaker tomorrow. Echocardiogram is pending. 09/14: Patient denies any new complaints. She has been seen by Dr. Baker this morning and her heart rate was running in the 80s and 90s overriding the pacemaker. Patient has been in a normal sinus rhythm. Plan is to monitor the patient in the intensive care unit for another 24 hours and pulled the berger svenous pacer. Repeat blood work reveals WBC 8.4, hemoglobin 9.9, BUN 14 creatinine 1.27. Blood sugars are running between 133 and 167. Echocardiogram reveals EF 45-50%, severe concentric left ventricular hypertrophy, LA severely dilated greater than 40, moderate to severe aortic stenosis, moderate mitral regurgitation, moderate mitral stenosis, moderate to severe tricuspid regurgitation, moderate to severe pulmonary hypertension. Discharge plan will be home with VNA. 09/15: patient is sitting up in bed in no acute distress, episodic confusion at night , recieves her lorazepam regularly as she does at home, she denies any chest pain or shortness of breath, no coughing, no abdominal pain, generalized weakness, and her monitor continues to show sinus rhythm with 1st degree AV block, she continues to have pauses and I believe she needs to have PPM placed and hopefully considering this prior to pulling her TVP out, she is upset today and she wanted to be discharged home, we will give her additional dose of Ativan, please keep in ICU till PPM is done. Objective - Vital Signs Vital signs: Vital Signs Temp 97.9 F 09/16/19 00:00 Pulse 67 09/16/19 00:00 Resp 12 09/16/19 00:00 BP 160/64 09/16/19 00:00 Pulse Ox 94 L 09/16/19 00:00 Intake & Output 09/15/19 09/15/19 09/16/19 06:59 18:59 06:59 Intake Total 1440 890 300 Output Total 1175 1285 585 Balance 265 -395 -285 Weight 65.6 kg Intake: IV 1440 640 240 .9 1200 400 120 Sodium Chloride 0.9% 1, 240 240 120 000 ml @ 20 mls/hr IV . Q24H [facility] Rx#:[id number] Oral 250 60 Output: Urine 1175 1285 585 Other: Voiding Method Indwelling Catheter Indwelling Catheter Indwelling Catheter - Exam Exam Review of Systems Constitutional: Reports fatigue improved, Reports weakness, Denies anorexia, Denies chills, Denies fever, Denies poor appetite, Denies weight loss Ears, nose, mouth and throat: Denies dysphagia, Denies nasal congestion, Denies nasal discharge, Denies vertigo Cardiovascular: Reports chest pain, reports decreased exercise tolerance, reports dyspnea on exertion, Denies edema, Denies leg edema, Denies lightheadedn ess, Denies palpitations, Denies syncope Respiratory: Denies cough, Denies cough with sputum, reports dyspnea, Denies excessive sputum, Denies hemoptysis, Denies home oxygen, Denies wheezing Gastrointestinal: Denies nausea, denies vomiting, Denies abdominal pain, Denies diarrhea, Denies loss of appetite Genitourinary: Denies dysuria, Denies urgency, Denies urinary frequency Musculoskeletal: Reports gait dysfunction, Reports muscle weakness, Denies frequent falls, Denies myalgias Integumentary: Denies pruritus, Denies rash, Denies wounds Neurological: Reports gait dysfunction, Reports weakness, Denies burning pain, Denies change in speech, Denies paresthesias, Denies syncope Psychiatric: Denies anxiety, Denies depression Endocrine: Denies fatigue, Denies weight change Physical Examination Gen: This is an 84-year-old female. She is resting in ICU bed and appears to be comfortable. HEENT: Head is atraumatic, normocephalic. Pupils equal, round. Sclerae is anicteric. NECK: Supple. No JVD. No lymphadenopathy. No thyromegaly. LUNGS: Clear to auscultation. No wheezes or rhonchi. No intercostal retractions. HEART: Regular rate and rhythm. Systolic murmur. Temporary pacemaker in place. ABDOMEN: Soft. Bowel sounds are present. No masses. No tenderness. EXTREMITIES: 1+ pedal edema. Dorsalis pedis +1 bilaterally. NEUROLOGICAL: Patient is awake, alert and oriented x3. Cranial nerves 2 through 12 are grossly intact. - Labs CBC & Chem 7: 09/16/19 05:04 09/16/19 05:04 Labs: Abnormal Lab Results - Last 24 Hours (Table) 09/15/19 09/15/19 09/15/19 Range/Units 05:36 05:36 06:52 RBC 2.91 L (3.80-5.40) m/uL Hgb 9.9 L (11.4-16.0) gm/dL Hct 31.2 L (34.0-46.0) % MCV 107.0 H (80.0-100.0) fL Chloride 119 H (98-107) mmol/L Carbon Dioxide 20 L (22-30) mmol/L BUN 48 H (7-17) mg/dL Creatinine 1.27 H (0.52-1.04) mg/dL Glucose 133 H (74-99) mg/dL POC Glucose (mg/dL) 150 H (75-99) mg/dL 09/15/19 09/15/19 09/15/19 Range/Units 11:35 17:04 20:34 RBC (3.80-5.40) m/uL Hgb (11.4-16.0) gm/dL Hct (34.0-46.0) % MCV (80.0-100.0) fL Chloride (98-107) mmol/L Carbon Dioxide (22-30) mmol/L BUN (7-17) mg/dL Creatinine (0.52-1.04) mg/dL Glucose (74-99) mg/dL POC Glucose (mg/dL) 144 H 168 H 181 H (75-99) mg/dL Assessment and Plan Assessment: Assessment and Plan Plan: 1. Weakness and frequent falls secondary to third-degree heart block and sinus bradycardia with a second-degree AV block Mobitz type II. Cardiology consult appreciated. Patient is maintained in the intensive care unit. Temporary pacemaker has been placed, she continues to have issues with pauses and high degree block, she will require PPM. 2. Acute kidney injury with chronic kidney disease stage III. creatinine is back to baseline. 3. Hypertension. Continue Cardura 4 mg daily, hydralazine 50 mg twice daily, Procardia XL 90 mg daily. Hold losartan. 4. History of coronary artery disease status post CABG in 2011. Continue aspirin 81 mg daily, Lipitor 80 mg daily. 5. Valvular heart disease with moderate aortic stenosis, moderate mitral regurgitation, moderate tricuspid regurgitation, severe pulmonary hypertension 6. Hyperlipidemia. Continue Lipitor 80 mg daily. 7. Chronic diastolic heart failure, stable. we hamida continue to monitor closely, decrease IVF. 8. Diabetes mellitus type 2, insulin requiring, uncontrolled with hypoglycemia. Continue NovoLog scale before meals and at bedtime 9. Anemia of chronic disease. Continue ferrous sulfate 325 mg daily 10. Gout, chronic. Continue allopurinol 100 mg daily. 11. Generalized anxiety disorder. we will continue with Lorazepam 1 mg po bid. 12. Gastroesophageal reflux disease and GI prophylaxis. Continue Protonix 40 mg po daily. 13. DVT prophylaxis. we will continue with heparin 5000 units SC q 8 h. Discharge plan: Return home post PPM placement
[2019-09-16 12:13] LABS: Glucose,Whole Blood 125 mg/dL (75-99)
--- NOTE | 2019-09-16 12:13 | P.PN ---
Subjective Progress Note Date: 09/16/19 84-year-old female patient got admitted intensive care unit after having a transvenous temporary pacemaker in place for a high degree AV block which was essentially second-degree and sometimes third-degree. The patient is known to have coronary artery disease and previous bypass surgery that was done in 2011. 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 This patient was having generalized weakness and frequent falls. She has also fell on her knees which seems to be quite injured. No back injury. Her condition has gotten worse and the patient denied having any chest pain or anginal shortness of breath. She came into the hospital where the patient was found to have significant bradycardia with a heart rate between 30 and 40 with at times it third-degree AV block as stated. Creatinine was at 2.1 which is slightly elevated compared to her baseline and the patient was taken Aldactone and her potassium level was at 5.3. This was stopped. She was also on clonidine on outpatient basis. She was not taking any form of beta blockers or calcium channel blockers. Chest x-ray revealed cardiomegaly and some elevation of the left hemidiaphragm with some mild pulmonary vessel congestion. X-ray of the knee showed no evidence of any fracture. The patient was given IV dopamine which helped her with her heart rate. Her hyperkalemia was treated with a calcium gluconate and insulin dextrose combination. This morning, had evidence of significant rhythm is first degree AV block and heart heart is in the 60s. No plans for permanent pacemaker insertion at this point in time. Potassium level is improved. Renal function is also improved. She is on no pressors for now. On today's evaluation of 09/15/2019, the patient is having a heart rate between 80 and 90. The patient is in normal sinus rhythm. The billet driller opted to keep him in ICU for another 24 hours for monitoring and there are no plans for permanent pacemaker insertion. Another 24 hour monitoring will be done prior to removing the transvenous pacemaker. Ejection fraction is 45%. She is a bit anxious as the patient takes Ativan twice a day even on outpatient basis. He is known to have CAD, diastolic heart failure hypertension and hyperlipidemia. She also has valvular heart disease with aortic and mitral stenosis. There is function is improved and the creatinine is down to 1.2. Potassium level is down to 4.7. She is receiving normal saline and I'm going to cut down the IV fluids to KVO. On 09/16/2019 and seeing the patient for a follow-up H is calm and comfortable. She still having some bradycardia arrhythmias as noted on the monitor the patie nt is occasionally utilizing the backup pacemaker. The backup pacemaker is set at the rate of 50. Her interested cardiac rhythm is a first-degree AV block, sinus. She is doing well otherwise been no specific complaints. Function is improved. Awaiting final recommendations from cardiology regarding the need for a permanent pacemaker insertion. Objective - Vital Signs Vital signs: Vital Signs Temp 97.9 F 09/16/19 04:00 Pulse 53 L 09/16/19 06:00 Resp 31 H 09/16/19 06:00 BP 168/85 09/16/19 06:00 Pulse Ox 96 09/16/19 06:00 Intake & Output 09/15/19 09/16/19 09/16/19 18:59 06:59 18:59 Intake Total 890 540 Output Total 1285 1110 Balance -395 -570 Weight 61 kg Intake: IV 640 480 .9 400 240 Sodium Chloride 0.9% 1, 240 240 000 ml @ 20 mls/hr IV . Q24H [facility] Rx#:[id number] Oral 250 60 Output: Urine 1285 1110 Other: Voiding Method Indwelling Catheter Indwelling Catheter - Exam The patient appeared well nourished and normally developed. Vital signs as documented. Head exam is unremarkable. No scleral icterus or corneal arcus noted. Neck is without jugular venous distension, thyromegaly, or carotid bruits. Carotid upstrokes are brisk bilaterally. Lungs are clear to auscultation and percussion. Cardiac exam reveals the PMI to be normally sized and situated. Rhythm is regular. There is a systolic ejection murmur grade 4/6 heard throughout the precordium mainly in the left lateral sternal border and apex and the patient has also some diastolic rumble. This is consistent with aortic stenosis and some mitral stenosis. Extremities are nonedematous and both femoral and pedal pulses are normal.Examination of the skin revealed no evidence of significant rashes, suspicious appearing nevi or other concerning lesions. Neurologically the patient is awake and alert and is no focal neurological deficits. - Labs CBC & Chem 7: 09/16/19 05:04 09/16/19 05:04 Labs: Abnormal Lab Results - Last 24 Hours (Table) 09/15/19 09/15/19 09/16/19 Range/Units 17:04 20:34 05:04 RBC 3.04 L (3.80-5.40) m/uL Hgb 9.9 L (11.4-16.0) gm/dL Hct 32.0 L (34.0-46.0) % MCV 105.1 H (80.0-100.0) fL Chloride (98-107) mmol/L Carbon Dioxide (22-30) mmol/L BUN (7-17) mg/dL Glucose (74-99) mg/dL POC Glucose (mg/dL) 168 H 181 H (75-99) mg/dL Total Protein (6.3-8.2) g/dL Albumin (3.5-5.0) g/dL 09/16/19 09/16/19 Range/Units 05:04 09:02 RBC (3.80-5.40) m/uL Hgb (11.4-16.0) gm/dL Hct (34.0-46.0) % MCV (80.0-100.0) fL Chloride 117 H (98-107) mmol/L Carbon Dioxide 20 L (22-30) mmol/L BUN 33 H (7-17) mg/dL Glucose 142 H (74-99) mg/dL POC Glucose (mg/dL) 145 H (75-99) mg/dL Total Protein 6.0 L (6.3-8.2) g/dL Albumin 3.2 L (3.5-5.0) g/dL Assessment and Plan Plan: 1 severe bradycardia secondary to a second degree AV block/third degree AV block. The patient was noted to be in Mobitz type II. Contributing factors included hyperkalemia and medication. The patient is currently back into a first-degree AV block with a normal sinus rhythm. She has a backup transvenous pacemaker inserted yesterday without any complications. Cardiology is to consult regarding the possibility of a permanent pacemaker insertion. 2 coronary artery disease with previous bypass surgery in 2011 3 valvular heart disease with aortic stenosis and mitral stenosis 4 secondary pulmonary hypertension related to above 5 hypertension with hypertensive heart disease and hypertrophy of the LV 6 chronic stage III kidney disease with an acute kidney injury on top of chronic kidney failure with secondary hyperkalemia, treated and the potassium level is improved and the renal function is also improved 7 diabetes mellitus 8 hyperlipidemia 9 chronic anemia, anemia of chronic disease 10 gout 11 acid reflux Plan We will ask cardiology to reevaluate the patient and address the need for a permanent pacemaker insertion. Renal function is improved The patient has his pacemaker in place Electrodes are all within normal Echo was noted The blood pressure is elevated and the patient will be started back on Cozaar in conjunction with her nifedipine and utilize hydralazine as needed We'll follow
[2019-09-16] MEDS: SODIUM CHLORIDE 0.9% 1,000 ML IV SCH ×2 (13:38→21:31)
[2019-09-16] MEDS: TRIAMTERENE-HCTZ 37.5-25MG 1 EACH CAP PO SCH (14:35)
[2019-09-16] MEDS: HEPARIN SODIUM,PORCINE 5,000 UNIT/ML 1 ML VIAL SQ SCH ×2 (16:17→23:56)
[2019-09-16 17:27] LABS: Glucose,Whole Blood 194 mg/dL (75-99)
[2019-09-16] MEDS: PANTOPRAZOLE 40 MG TABLET PO SCH (21:29)
[2019-09-16] MEDS: CYANOCOBALAMIN 500 MCG TAB PO SCH (21:30)
[2019-09-16] MEDS: CHOLECALCIFEROL 1,000 UNIT TAB PO SCH (21:30)
[2019-09-16] MEDS: FERROUS SULFATE 325 MG TAB PO SCH (21:30)
[2019-09-16] MEDS: ATORVASTATIN 80 MG TAB PO SCH (21:30)
[2019-09-16] MEDS: POLYETHYLENE GLYCOL 3350 17 GM POWD.PACK PO SCH (21:31)
[2019-09-16 21:43] LABS: Glucose,Whole Blood 128 mg/dL (75-99)
[2019-09-16] MEDS: LORazepam 1 MG TAB PO PRN (23:56)
[2019-09-17 06:38] LABS: Glucose,Whole Blood 116 mg/dL (75-99)
[2019-09-17 07:31] LABS: HCT 31.6 % (34.0-46.0); HGB 10.1 gm/dL (11.4-16.0); Hypochromasia Slight; MCH 34.2 pg (25.0-35.0); MCHC 31.9 g/dL (31.0-37.0); MCV 107.4 fL (80.0-100.0); Macrocytosis Moderate; Mean Platelet Volume 8.7; Platelet Count 234 k/uL (150-450); RBC 2.95 m/uL (3.80-5.40); RDW 14.1 % (11.5-15.5); WBC 6.9 k/uL (3.8-10.6)
[2019-09-17 07:45] LABS: Calcium 9.6 mg/dL (8.4-10.2); Potassium 4.9 mmol/L (3.5-5.1); Total Bilirubin 0.5 mg/dL (0.2-1.3); Total Protein 5.6 g/dL (6.3-8.2)
[2019-09-17] MEDS: SENNOSIDES-DOCUSATE SODIUM 1 EACH TAB PO SCH (08:38)
[2019-09-17] MEDS: ASPIRIN 81 MG PO SCH (08:38)
[2019-09-17] MEDS: DOXAZOSIN 4 MG TAB PO SCH (08:38)
[2019-09-17] MEDS: hydrALAZINE HCL 50 MG TAB PO SCH ×3 (08:38→22:07)
[2019-09-17] MEDS: TRIAMTERENE-HCTZ 37.5-25MG 1 EACH CAP PO SCH (08:38)
[2019-09-17] MEDS: LOSARTAN 50 MG TAB PO SCH ×2 (08:38→20:54)
[2019-09-17] MEDS: INSULIN ASPART (NovoLOG) 100 UNIT/ML VIAL SQ SCH ×4 (08:38→20:53)
[2019-09-17] MEDS: LORazepam 1 MG TAB PO SCH (08:38)
[2019-09-17] MEDS: ALLOPURINOL 100 MG TAB PO SCH (08:38)
[2019-09-17] MEDS: HEPARIN SODIUM,PORCINE 5,000 UNIT/ML 1 ML VIAL SQ SCH ×3 (08:39→23:25)
--- NOTE | 2019-09-17 10:49 | P.PN ---
Subjective Progress Note Date: 09/17/19 This is an 84-year-old female patient of Dr. Bill and Dr. Diana with past medical history of coronary artery disease status post CABG in 2012 followed by myocardial infarction, chronic systolic heart failure, chronic kidney disease stage III, diabetes mellitus type 2 insulin requiring, hy perlipidemia, hypertension, cervical stenosis, chronic back pain. Patient came into [facility] emergency center for generalized weakness and frequent falls. She denies any head injury or loss of consciousness. She did have a fall yesterday when she landed on her buttocks and injured her right knee. No back pain. Patient had worsening symptoms over the last couple of days. Patient denies any chest pain or shortness of breath. No nausea or vomiting. She has been eating and drinking okay. No fever or chills. Patient was found to have a heart rate in the 30s and 40s with initial EKG a third- degree heart block and second was a sinus bradycardia with a second-degree AV b lock Mobitz type II. Blood pressure was stable 134/53, afebrile and pulse ox was 100% on room air.. Sodium 136, potassium 5.3, chloride 108, BUN 83 creatinine 2.12, blood sugar 137. Magnesium was 2.4. TSH 4.380. Blood sugar 150. Troponin 0.035. Chest x-ray revealed cardiomegaly and chronic parenchymal changes with new elevated left diaphragm but no new suspicious focal infiltrate. Right knee x-ray showed no acute fracture or dislocation. Patient was given IV dopamine with some increase in her heart rate. She also received calcium gluconate and insulin, dextrose. Cardiology was immediately consult it and a temporary transvenous pacemaker was inserted. Patient was then admitted to the intensive care unit with plan for permanent pacemaker tomorrow. Echocardiogram is pending. 09/14: Patient denies any new complaints. She has been seen by Dr. Baker this morning and her heart rate was running in the 80s and 90s overriding the pacemaker. Patient has been in a normal sinus rhythm. Plan is to monitor the patient in the intensive care unit for another 24 hours and pulled the berger svenous pacer. Repeat blood work reveals WBC 8.4, hemoglobin 9.9, BUN 14 creatinine 1.27. Blood sugars are running between 133 and 167. Echocardiogram reveals EF 45-50%, severe concentric left ventricular hypertrophy, LA severely dilated greater than 40, moderate to severe aortic stenosis, moderate mitral regurgitation, moderate mitral stenosis, moderate to severe tricuspid regurgitation, moderate to severe pulmonary hypertension. Discharge plan will be home with VNA. 09/15: patient is sitting up in bed in no acute distress, episodic confusion at night , recieves her lorazepam regularly as she does at home, she denies any chest pain or shortness of breath, no coughing, no abdominal pain, generalized weakness, and her monitor continues to show sinus rhythm with 1st degree AV block, she continues to have pauses and I believe she needs to have PPM placed and hopefully considering this prior to pulling her TVP out, she is upset today and she wanted to be discharged home, we will give her additional dose of Ativan, please keep in ICU till PPM is done. 09/16: Patient is sitting up in bed she is feeling better today she denies any chest pain, shortness breath, she is scheduled to go for permanent pacemaker placement tomorrow morning due to a sick sinus syndrome with a third-degree AV block, she is currently on transvenous pacemaker that is capturing all these at this time her heart rate is about 50 and her blood pressure is better than yesterday, patient denies any abdominal pain, she has no nausea or vomiting, she is less anxious since we increased her lorazepam to twice every day. Objective - Vital Signs Vital signs: Vital Signs Temp 97.9 F 09/17/19 04:00 Pulse 62 09/17/19 07:00 Resp 20 09/17/19 07:00 BP 152/76 09/17/19 07:00 Pulse Ox 97 09/17/19 07:00 Intake & Output 09/16/19 09/17/19 09/17/19 18:59 06:59 18:59 Intake Total 1080 600 160 Output Total 925 770 50 Balance 155 -170 110 Weight 61.7 kg Intake: IV 480 480 40 0.9 Normal Saline in TVP 240 240 20 Sodium Chloride 0.9% 1, 240 240 20 000 ml @ 20 mls/hr IV . Q24H [facility] Rx#:[id number] Oral 600 120 120 Output: Urine 925 770 50 Other: Voiding Method Indwelling Catheter Indwelling Catheter - Exam Exam Review of Systems Constitutional: Reports fatigue improved, Reports weakness, Denies anorexia, Denies chills, Denies fever, Denies poor appetite, Denies weight loss Ears, nose, mouth and throat: Denies dysphagia, Denies nasal congestion, Denies nasal discharge, Denies vertigo Cardiovascular: Reports chest pain, reports decreased exercise tolerance, reports dyspnea on exertion, Denies edema, Denies leg edema, Denies lightheadedness, Denies palpitations, Denies syncope Respiratory: Denies cough, Denies cough with sputum, reports dyspnea, Denies excessive sputum, Denies hemoptysis, Denies home oxygen, Denies wheezing Gastrointestinal: Denies nausea, denies vomiting, Denies abdominal pain, Denies diarrhea, Denies loss of appetite Genitourinary: Denies dysuria, Denies urgency, Denies urinary frequency Musculoskeletal: Reports gait dysfunction, Reports muscle weakness, Denies frequent falls, Denies myalgias Integumentary: Denies pruritus, Denies rash, Denies wounds Neurological: Reports gait dysfunction, Reports weakness, Denies burning pain, Denies change in speech, Denies paresthesias, Denies syncope Psychiatric: Denies anxiety, Denies depression Endocrine: Denies fatigue, Denies weight change Physical Examination Gen: This is an 84-year-old female. She is resting in ICU bed and appears to be comfortable. HEENT: Head is atraumatic, normocephalic. Pupils equal, round. Sclerae is anicteric. NECK: Supple. No JVD. No lymphadenopathy. No thyromegaly. LUNGS: Clear to auscultation. No wheezes or rhonchi. No intercostal retractions. HEART: Regular rate and rhythm. Systolic murmur. Temporary pacemaker in place. ABDOMEN: Soft. Bowel sounds are present. No masses. No tenderness. EXTREMITIES: 1+ pedal edema. Dorsalis pedis +1 bilaterally. NEUROLOGICAL: Patient is awake, alert and oriented x3. Cranial nerves 2 through 12 are grossly intact. - Labs CBC & Chem 7: 09/17/19 07:17 09/17/19 07:17 Labs: Abnormal Lab Results - Last 24 Hours (Table) 09/16/19 09/16/19 09/16/19 Range/Units 12:12 17:25 21:42 RBC (3.80-5.40) m/uL Hgb (11.4-16.0) gm/dL Hct (34.0-46.0) % MCV (80.0-100.0) fL Chloride (98-107) mmol/L Carbon Dioxide (22-30) mmol/L BUN (7-17) mg/dL Creatinine (0.52-1.04) mg/dL Glucose (74-99) mg/dL POC Glucose (mg/dL) 125 H 194 H 128 H (75-99) mg/dL Total Protein (6.3-8.2) g/dL Albumin (3.5-5.0) g/dL 09/17/19 09/17/19 09/17/19 Range/Units 06:37 07:17 07:17 RBC 2.95 L (3.80-5.40) m/uL Hgb 10.1 L (11.4-16.0) gm/dL Hct 31.6 L (34.0-46.0) % MCV 107.4 H (80.0-100.0) fL Chloride 118 H (98-107) mmol/L Carbon Dioxide 19 L (22-30) mmol/L BUN 31 H (7-17) mg/dL Creatinine 1.07 H (0.52-1.04) mg/dL Glucose 120 H (74-99) mg/dL POC Glucose (mg/dL) 116 H (75-99) mg/dL Total Protein 5.6 L (6.3-8.2) g/dL Albumin 3.0 L (3.5-5.0) g/dL Assessment and Plan Assessment: Assessment and Plan Plan: 1. Weakness and frequent falls secondary to third-degree heart block and sinus bradycardia with a second-degree AV block Mobitz type II. Cardiology consult appreciated. Patient is maintained in the intensive care unit. Temporary pacemaker has been placed, she continues to have issues with pauses and high degree block, scheduled for permanent pacemaker tomorrow morning. 2. Acute kidney injury with chronic kidney disease stage III. creatinine is back to baseline. 3. Hypertension. Continue Cardura 4 mg daily, hydralazine 50 mg twice daily, Procardia XL 90 mg daily. Hold losartan. 4. History of coronary artery disease status post CABG in 2011. Continue aspirin 81 mg daily, Lipitor 80 mg daily. 5. Valvular heart disease with moderate aortic stenosis, moderate mitral regurgitation, moderate tricuspid regurgitation, severe pulmonary hypertension 6. Hyperlipidemia. Continue Lipitor 80 mg daily. 7. Chronic diastolic heart failure, stable. we hamida continue to monitor closely, decrease IVF. 8. Diabetes mellitus type 2, insulin requiring, uncontrolled with hypoglycemia. Continue NovoLog scale before meals and at bedtime 9. Anemia of chronic disease. Continue ferrous sulfate 325 mg daily 10. Gout, chronic. Continue allopurinol 100 mg daily. 11. Generalized anxiety disorder. we will continue with Lorazepam 1 mg po bid. 12. Gastroesophageal reflux disease and GI prophylaxis. Continue Protonix 40 mg po daily. 13. DVT prophylaxis. we will continue with heparin 5000 units SC q 8 h. 14. Hopefully home on Wednesday.
--- NOTE | 2019-09-17 12:03 | P.PN ---
Subjective Progress Note Date: 09/17/19 84-year-old female patient got admitted intensive care unit after having a transvenous temporary pacemaker in place for a high degree AV block which was essentially second-degree and sometimes third-degree. The patient is known to have coronary artery disease and previous bypass surgery that was done in 2011. 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 This patient was having generalized weakness and frequent falls. She has also fell on her knees which seems to be quite injured. No back injury. Her condition has gotten worse and the patient denied having any chest pain or anginal shortness of breath. She came into the hospital where the patient was found to have significant bradycardia with a heart rate between 30 and 40 with at times it third-degree AV block as stated. Creatinine was at 2.1 which is slightly elevated compared to her baseline and the patient was taken Aldactone and her potassium level was at 5.3. This was stopped. She was also on clonidine on outpatient basis. She was not taking any form of beta blockers or calcium channel blockers. Chest x-ray revealed cardiomegaly and some elevation of the left hemidiaphragm with some mild pulmonary vessel congestion. X-ray of the knee showed no evidence of any fracture. The patient was given IV dopamine which helped her with her heart rate. Her hyperkalemia was treated with a calcium gluconate and insulin dextrose combination. This morning, had evidence of significant rhythm is first degree AV block and heart heart is in the 60s. No plans for permanent pacemaker insertion at this point in time. Potassium level is improved. Renal function is also improved. She is on no pressors for now. On today's evaluation of 09/15/2019, the patient is having a heart rate between 80 and 90. The patient is in normal sinus rhythm. The director of intelligence opted to keep him in ICU for another 24 hours for monitoring and there are no plans for permanent pacemaker insertion. Another 24 hour monitoring will be done prior to removing the transvenous pacemaker. Ejection fraction is 45%. She is a bit anxious as the patient takes Ativan twice a day even on outpatient basis. He is known to have CAD, diastolic heart failure hypertension and hyperlipidemia. She also has valvular heart disease with aortic and mitral stenosis. There is function is improved and the creatinine is down to 1.2. Potassium level is down to 4.7. She is receiving normal saline and I'm going to cut down the IV fluids to KVO. On 09/16/2019 and seeing the patient for a follow-up H is calm and comfortable. She still having some bradycardia arrhythmias as noted on the monitor the patie nt is occasionally utilizing the backup pacemaker. The backup pacemaker is set at the rate of 50. Her interested cardiac rhythm is a first-degree AV block, sinus. She is doing well otherwise been no specific complaints. Function is improved. Awaiting final recommendations from cardiology regarding the need for a permanent pacemaker insertion. On 09/17/2019, the patient is still having cardiac arrhythmia with a high degree AV block and the patient is going to have a pacemaker insertion tomorrow. Meanwhile, the backup transvenous pacemaker is set at the rate of 50 beats per minute. No chest pain. No respiratory distress. No confusion. No agitation. BP is under better control today's evaluation and blood pressure medication adjustments made yesterday. The plan is to proceed with a pacemaker insertion tomorrow. Objective - Vital Signs Vital signs: Vital Signs Temp 97.9 F 09/17/19 08:00 Pulse 79 09/17/19 09:00 Resp 31 H 09/17/19 10:00 BP 158/119 09/17/19 10:00 Pulse Ox 96 09/17/19 10:00 Intake & Output 09/16/19 09/17/19 09/17/19 18:59 06:59 18:59 Intake Total 1080 600 717 Output Total 925 770 185 Balance 155 -170 532 Weight 61.7 kg Intake: IV 480 480 160 0.9 Normal Saline in TVP 240 240 80 Sodium Chloride 0.9% 1, 240 240 80 000 ml @ 20 mls/hr IV . Q24H [facility] Rx#:[id number] Oral 600 120 557 Output: Urine 925 770 185 Other: Voiding Method Indwelling Catheter Indwelling Catheter Indwelling Catheter - Exam The patient appeared well nourished and normally developed. Vital signs as documented. Head exam is unremarkable. No scleral icterus or corneal arcus noted. Neck is without jugular venous distension, thyromegaly, or carotid bruits. Carotid upstrokes are brisk bilaterally. Lungs are clear to auscultation and percussion. Cardiac exam reveals the PMI to be normally sized and situated. Rhythm is regular. There is a systolic ejection murmur grade 4/6 heard throughout the precordium mainly in the left lateral sternal border and apex and the patient has also some diastolic rumble. This is consistent with aortic stenosis and some mitral stenosis. Extremities are nonedematous and both femoral and pedal pulses are normal.Examination of the skin revealed no evidence of significant rashes, suspicious appearing nevi or other concerning lesions. Neurologically the patient is awake and alert and is no focal neurological deficits. - Labs CBC & Chem 7: 09/17/19 07:17 09/17/19 07:17 Labs: Abnormal Lab Results - Last 24 Hours (Table) 09/16/19 09/16/19 09/16/19 Range/Units 12:12 17:25 21:42 RBC (3.80-5.40) m/uL Hgb (11.4-16.0) gm/dL Hct (34.0-46.0) % MCV (80.0-100.0) fL Chloride (98-107) mmol/L Carbon Dioxide (22-30) mmol/L BUN (7-17) mg/dL Creatinine (0.52-1.04) mg/dL Glucose (74-99) mg/dL POC Glucose (mg/dL) 125 H 194 H 128 H (75-99) mg/dL Total Protein (6.3-8.2) g/dL Albumin (3.5-5.0) g/dL 09/17/19 09/17/19 09/17/19 Range/Units 06:37 07:17 07:17 RBC 2.95 L (3.80-5.40) m/uL Hgb 10.1 L (11.4-16.0) gm/dL Hct 31.6 L (34.0-46.0) % MCV 107.4 H (80.0-100.0) fL Chloride 118 H (98-107) mmol/L Carbon Dioxide 19 L (22-30) mmol/L BUN 31 H (7-17) mg/dL Creatinine 1.07 H (0.52-1.04) mg/dL Glucose 120 H (74-99) mg/dL POC Glucose (mg/dL) 116 H (75-99) mg/dL Total Protein 5.6 L (6.3-8.2) g/dL Albumin 3.0 L (3.5-5.0) g/dL Assessment and Plan Plan: 1 severe bradycardia secondary to a second degree AV block/third degree AV block. This is an ongoing and recurrent problem. The patient is going to undergo a permanent pacemaker insertion tomorrow. Currently she has a transvenous pacemaker in place. 2 coronary artery disease with previous bypass surgery in 2011 3 valvular heart disease with aortic stenosis and mitral stenosis 4 secondary pulmonary hypertension related to above 5 hypertension with hypertensive heart disease and hypertrophy of the LV 6 chronic stage III kidney disease with an acute kidney injury on top of chronic kidney failure with secondary hyperkalemia, treated and the potassium level is improved and the renal function is also improved 7 diabetes mellitus 8 hyperlipidemia 9 chronic anemia, anemia of chronic disease 10 gout 11 acid reflux Plan permanent pacemaker insertion tomorrow Keep a transvenous pacemaker placed a rate of 50 beats per minute Renal function is improved Blood work and electrodes are all within normal limits Echo was noted The blood pressure is under better control for now with a combination of Cardura, hydralazine, Cozaar, nifedipine and Dyazide. Keep in the ICU until the permanent pacemaker insertion is completed
[2019-09-17 12:14] LABS: Glucose,Whole Blood 179 mg/dL (75-99)
--- NOTE | 2019-09-17 13:17 | P.PN ---
Subjective Patient is resting comfortably in bed. Cranial blood pressure is better. She does intermittently pace at 50 beats a minute, VVI She has a TVP for intermittent complete heart block She continues to have episodes of heart block with need for pacing at 50 beats a minute Yesterday we increased the dose of her antihypertensive therapy increase hydr alazine added Dyazide Her blood pressures 155/80 Normal heart sounds no murmurs or gallops Breath sounds are clear no rhonchi no crackles No JVD Sitting comfortably in bed Impression intermittent complete heart block, paroxysmal Intermittent need for ventricular pacing No reversible causes No medications onboard Suggest Proceed with dual-chamber pacemaker implantation tomorrow Dr. Diana Discussed with the patient Objective - Vital Signs Vital signs: Vital Signs Temp 97.9 F 09/17/19 08:00 Pulse 79 09/17/19 09:00 Resp 31 H 09/17/19 10:00 BP 158/119 09/17/19 10:00 Pulse Ox 96 09/17/19 10:00 Intake & Output 09/16/19 09/17/19 09/17/19 18:59 06:59 18:59 Intake Total 1080 600 717 Output Total 925 770 185 Balance 155 -170 532 Weight 61.7 kg Intake: IV 480 480 160 0.9 Normal Saline in TVP 240 240 80 Sodium Chloride 0.9% 1, 240 240 80 000 ml @ 20 mls/hr IV . Q24H [facility] Rx#:[id number] Oral 600 120 557 Output: Urine 925 770 185 Other: Voiding Method Indwelling Catheter Indwelling Catheter Indwelling Catheter - Labs CBC & Chem 7: 09/17/19 07:17 09/17/19 07:17 Labs: Abnormal Lab Results - Last 24 Hours (Table) 09/16/19 09/16/19 09/17/19 Range/Units 17:25 21:42 06:37 RBC (3.80-5.40) m/uL Hgb (11.4-16.0) gm/dL Hct (34.0-46.0) % MCV (80.0-100.0) fL Chloride (98-107) mmol/L Carbon Dioxide (22-30) mmol/L BUN (7-17) mg/dL Creatinine (0.52-1.04) mg/dL Glucose (74-99) mg/dL POC Glucose (mg/dL) 194 H 128 H 116 H (75-99) mg/dL Total Protein (6.3-8.2) g/dL Albumin (3.5-5.0) g/dL 09/17/19 09/17/19 09/17/19 Range/Units 07:17 07:17 12:11 RBC 2.95 L (3.80-5.40) m/uL Hgb 10.1 L (11.4-16.0) gm/dL Hct 31.6 L (34.0-46.0) % MCV 107.4 H (80.0-100.0) fL Chloride 118 H (98-107) mmol/L Carbon Dioxide 19 L (22-30) mmol/L BUN 31 H (7-17) mg/dL Creatinine 1.07 H (0.52-1.04) mg/dL Glucose 120 H (74-99) mg/dL POC Glucose (mg/dL) 179 H (75-99) mg/dL Total Protein 5.6 L (6.3-8.2) g/dL Albumin 3.0 L (3.5-5.0) g/dL
--- NOTE | 2019-09-17 13:55 | P.PN ---
Subjective Progress Note Date: 09/16/19 Patient seen on WednesdaySeptember 2019 84-year-old female with coronary artery disease status post coronary artery bypass grafting and diastolic heart failure hypertension and aortic valve disease She came in with complete heart block The TVP placed by Dr. Rodríguez When I saw her on Wednesday she was resting comfortably in bed. IV programmed her TVP to VVI 50 with maximum output, 10 mA I discussed permanent pacemaker implantation because she was still experiencing intermittent episodes of AV block with need for ventricular pacing Blood pressure was elevated Breath sounds are clear no rhonchi no crackles Heart sounds S1 and S2 are soft Systolic murmur audible consistent with aortic stenosis I discussed implantation of a permanent pacemaker Skin prep Pacemaker is reported and discussed with the nurse Impression Intermittent complete heart block requiring pacing No reversible causes Suggest Procedure permanent pacing on Wednesday with Dr. Diana Increase hydralazine dose Add Dyazide for blood pressure control also Objective - Vital Signs Vital signs: Vital Signs Temp 98.2 F 09/17/19 12:00 Pulse 86 09/17/19 12:00 Resp 35 H 09/17/19 12:00 BP 167/46 09/17/19 12:00 Pulse Ox 95 09/17/19 12:00 Intake & Output 09/16/19 09/17/19 09/17/19 18:59 06:59 18:59 Intake Total 4182 429 0496 Output Total 925 770 370 Balance 155 -170 1067 Weight 61.7 kg Intake: IV 480 480 280 0.9 Normal Saline in TVP 240 240 140 Sodium Chloride 0.9% 1, 240 240 140 000 ml @ 20 mls/hr IV . Q24H [facility] Rx#:[id number] Oral 033 [id number] [id number] Output: Urine 925 770 370 Other: Voiding Method Indwelling Catheter Indwelling Catheter Indwelling Catheter - Labs CBC & Chem 7: 09/17/19 07:17 09/17/19 07:17 Labs: Abnormal Lab Results - Last 24 Hours (Table) 09/16/19 09/16/19 09/17/19 Range/Units 17:25 21:42 06:37 RBC (3.80-5.40) m/uL Hgb (11.4-16.0) gm/dL Hct (34.0-46.0) % MCV (80.0-100.0) fL Chloride (98-107) mmol/L Carbon Dioxide (22-30) mmol/L BUN (7-17) mg/dL Creatinine (0.52-1.04) mg/dL Glucose (74-99) mg/dL POC Glucose (mg/dL) 194 H 128 H 116 H (75-99) mg/dL Total Protein (6.3-8.2) g/dL Albumin (3.5-5.0) g/dL 09/17/19 09/17/19 09/17/19 Range/Units 07:17 07:17 12:11 RBC 2.95 L (3.80-5.40) m/uL Hgb 10.1 L (11.4-16.0) gm/dL Hct 31.6 L (34.0-46.0) % MCV 107.4 H (80.0-100.0) fL Chloride 118 H (98-107) mmol/L Carbon Dioxide 19 L (22-30) mmol/L BUN 31 H (7-17) mg/dL Creatinine 1.07 H (0.52-1.04) mg/dL Glucose 120 H (74-99) mg/dL POC Glucose (mg/dL) 179 H (75-99) mg/dL Total Protein 5.6 L (6.3-8.2) g/dL Albumin 3.0 L (3.5-5.0) g/dL
[2019-09-17 14:51] VITALS: BMI 24.8
[2019-09-17 16:53] LABS: Glucose,Whole Blood 224 mg/dL (75-99)
[2019-09-17] MEDS: SODIUM CHLORIDE 0.9% 1,000 ML IV SCH ×6 (17:23→23:18)
[2019-09-17 20:47] LABS: Glucose,Whole Blood 151 mg/dL (75-99)
[2019-09-17] MEDS: ATORVASTATIN 80 MG TAB PO SCH (20:51)
[2019-09-17] MEDS: CYANOCOBALAMIN 500 MCG TAB PO SCH (20:52)
[2019-09-17] MEDS: CHOLECALCIFEROL 1,000 UNIT TAB PO SCH (20:52)
[2019-09-17] MEDS: FERROUS SULFATE 325 MG TAB PO SCH (20:52)
[2019-09-17] MEDS: PANTOPRAZOLE 40 MG TABLET PO SCH (20:54)
[2019-09-17] MEDS: POLYETHYLENE GLYCOL 3350 17 GM POWD.PACK PO SCH (21:03)
[2019-09-17] MEDS: LORazepam 1 MG TAB PO PRN (22:07)
[2019-09-18 05:07] LABS: HCT 29.8 % (34.0-46.0); HGB 9.6 gm/dL (11.4-16.0); Hypochromasia Slight; MCH 34.4 pg (25.0-35.0); MCHC 32.1 g/dL (31.0-37.0); Macrocytosis Moderate; Mean Platelet Volume 10.5; Platelet Count 234 k/uL (150-450); RBC 2.78 m/uL (3.80-5.40); RDW 14.1 % (11.5-15.5); WBC 6.6 k/uL (3.8-10.6)
[2019-09-18 05:20] LABS: Albumin 2.9 g/dL (3.5-5.0); Calcium 9.5 mg/dL (8.4-10.2); Potassium 5.4 mmol/L (3.5-5.1); Total Bilirubin 0.3 mg/dL (0.2-1.3); Total Protein 5.4 g/dL (6.3-8.2)
--- NOTE | 2019-09-18 06:23 | XR ---
EXAM: XR Chest, 1 View CLINICAL HISTORY: ITS.REASON XR Reason: r/o pneumonia TECHNIQUE: Frontal view of the chest. COMPARISON: 09/14/19. FINDINGS: Lungs: Persistent patchy bilateral lung opacities. Pleural space: No significant pleural effusion or pneumothorax. Heart: Stable cardiomediastinal silhouette. Mediastinum: Persistent right hilar opacity. Bones/joints: No acute fracture. IMPRESSION: No significant interval change.
[2019-09-18 06:45] LABS: Glucose,Whole Blood 139 mg/dL (75-99)
[2019-09-18 07:33] LABS: Glucose,Whole Blood 125 mg/dL (75-99)
[2019-09-18] MEDS: INSULIN ASPART (NovoLOG) 100 UNIT/ML VIAL SQ SCH ×4 (07:41→22:10)
[2019-09-18] MEDS: LORazepam 1 MG TAB PO SCH ×2 (08:34→21:07)
[2019-09-18] MEDS: TRIAMTERENE-HCTZ 37.5-25MG 1 EACH CAP PO SCH (08:34)
[2019-09-18] MEDS: HEPARIN SODIUM,PORCINE 5,000 UNIT/ML 1 ML VIAL SQ SCH ×3 (08:34→23:52)
[2019-09-18] MEDS: SENNOSIDES-DOCUSATE SODIUM 1 EACH TAB PO SCH (08:34)
[2019-09-18] MEDS: ALLOPURINOL 100 MG TAB PO SCH (08:34)
[2019-09-18] MEDS: DOXAZOSIN 4 MG TAB PO SCH (08:34)
[2019-09-18] MEDS: ASPIRIN 81 MG PO SCH (08:34)
[2019-09-18] MEDS: hydrALAZINE HCL 50 MG TAB PO SCH ×3 (08:34→21:06)
[2019-09-18] MEDS ORDERED: CLINDAMYCIN 600 MG in SODIUM CHLORIDE 0.9% IRRIGATIO 250 ML IRRIGATION ONE (09:00)
--- NOTE | 2019-09-18 09:16 | PN ---
PROGRESS NOTE Mrs. Sainz is an 84-year-old female who presented on 09/12 with high-grade AV block and bradycardia. She is status post coronary artery bypass grafting who underwent cardiac a temporary pacemaker implantation. She is scheduled to undergo permanent pacemaker today. She denies any chest pain. Her breathing is stable. She denies any dizziness or palpitation. She denies any nausea. She continues to be at this time on aspirin once a day, Lipitor 80 mg daily, , Hydralazine 100 mg 3 times a day, Nifedipine 60 mg daily, nitroglycerin patch and Dyazide. PHYSICAL EXAMINATION: Blood pressure 148/50 with a heart rate in the high 50s. LUNGS: Clear. HEART: Regular rate and rhythm, S1, S2. No S3 with systolic murmur, 3/6 heard at the left upper sternal border, mid-peaking, no diastolic murmur, no rub. ABDOMEN: Soft nontender. EXTREMITIES: No edema. LAB DATA: Revealed BUN and creatinine 48 and 1.24. Her potassium is 5.4, hemoglobin of 9.6. Her chest x-ray shows no infiltrate. IMPRESSION: 1. High-grade AV block, scheduled for permanent pacemaker implantation. 2. Status post coronary artery bypass grafting. 3. Moderate aortic stenosis. 4. History of hypertension. 5. Hyperlipidemia. RECOMMENDATION: Patient will proceed with permanent pacemaker implantation today and subsequent adjustment of her medical regimen will be done afterwards. DARCIE / ANA: [id number] /
[2019-09-18] MEDS ORDERED: CLINDAMYCIN 900 MG in DEXTROSE 5% IN WATER 50 ML IVPB ONE ×2 (09:55)
[2019-09-18] MEDS ORDERED: IOPAMIDOL-370 50ML BTL INJ ONE (10:55)
[2019-09-18] MEDS: MIDAZOLAM 2 MG/2 ML VIAL IV ONE ×3 (11:18→11:28)
[2019-09-18] MEDS ORDERED: IV FLUID CONTINUATION 700 ML IV ONE (11:19)
[2019-09-18] MEDS ORDERED: LIDOCAINE 1% INJ 10MG/ML (20 ML MDV) SQ ONE (11:22)
[2019-09-18] MEDS ORDERED: LABETALOL 5 MG/ML VIAL MDV IV ONE (12:07)
--- NOTE | 2019-09-18 12:29 | P.PCN ---
Date of Procedure: 09/18/19 Preoperative Diagnosis: Intermittent complete heart block Postoperative Diagnosis: The same Procedure(s) Performed: Axillary venography, permanent pacemaker implantation [dual-chamber] Description of Procedure: HISTORY: His is a 84-year-old female with history of ischemic heart disease, cardiomyopathy who was admitted to the hospital with severe bradycardia with a high degree AV which was intermittent. Patient had a temporary pacemaker. Continued to have intermittent block which is also with hyperkalemia. Patient is advised to have permanent pacemaker implantation. CONSENT:I have discussed the risks, benefits and alternative therapies for the above-mentioned procedure and for both sedation/analgesia as well as necessary blood product administration, if indicated, as they pertain to this patient. The patient has indicated understanding and acceptance of the risks and procedures discussed. PROCEDURE: Patient was brought to the lab in a fasting state. Patient was prepped and draped in the usual fashion. Patient was given IV sedation with fentanyl and Versed. The skin below the left clavicle was infiltrated with lidocaine. An incision was made parallel to deltopectoral groove was deepened until the pectoral fascia was exposed. A pocket was created by blunt dissection and cautery. Axillary venography was performed to delineate the course of the axillary vein. 2 sticks were performed into extrathoracic portion of the axillary vein and 2 sheaths were advanced over the guidewires and left in subclavian vein. Conscious Sedation: Versed 1.5mg Fentanyl 0 g Duration 52minutes LEADS: ATRIAL: This is manufactured by [employer]. Model number is 5076-45. The serial number is [id number] VENTRICULAR: This is manufactured by [employer]. Model n umber is 5076-52. The serial number is [id number] The device: This is manufactured by [employer]. Model number is [id number] and the serial number is [id number] The ventricular lead is maneuvered l with help of a straight and curved stylets into the left ventricle apical region. Satisfactory position was obtained and threshold measurements were made. The atrial lead was then maneuvered into the right atrial appendage. And thresholds were obtained. THRESHOLDS: ATRIUM: The minimum patient threshold was 0.5 at pulse width of 0.5. The impedance is 793. The P-wave: 2.5. VENTRICLE: The minimum patient threshold was 0.7 at pulse width of 0.5. The impedance is 997. R-wave:9.4 The leads and pulse generator remained in the pocket after it was washed with antibiotics. Pocket was closed in the usual fashion. The fascia was closed with 2-0 Prolene ,the subcutaneous tissue was closed with 3-0 Prolene and the skin was closed with 4-0 Prolene. PROGRAMMING: MODE: AAIR to DDDR RATE: 60-120 OUTPUT: Atrium: 3.5 Ventricle: 3.5 FINAL IMPRESSION: #1. Axillary venography #2. Insertion of dual-chamber pacemaker . COMPLICATIONS: None PLAN: Continue prophylactic antibiotics. Chest x-ray in the morning. Continue to monitor her on the telemetry unit.
[2019-09-18 12:49] LABS: Glucose,Whole Blood 139 mg/dL (75-99)
--- NOTE | 2019-09-18 12:57 | P.PN ---
Subjective Progress Note Date: 09/18/19 This is an 84-year-old female patient of Dr. Bill and Dr. Diana with past medical history of coronary artery disease status post CABG in 2012 followed by myocardial infarction, chronic systolic heart failure, chronic kidney disease stage III, diabetes mellitus type 2 insulin requiring, hy perlipidemia, hypertension, cervical stenosis, chronic back pain. Patient came into [facility] for generalized weakness and frequent falls. She denies any head injury or loss of consciousness. She did have a fall yesterday when she landed on her buttocks and injured her right knee. No back pain. Patient had worsening symptoms over the last couple of days. Patient denies any chest pain or shortness of breath. No nausea or vomiting. She has been eating and drinking okay. No fever or chills. Patient was found to have a heart rate in the 30s and 40s with initial EKG a third- degree heart block and second was a sinus bradycardia with a second-degree AV b lock Mobitz type II. Blood pressure was stable 134/53, afebrile and pulse ox was 100% on room air.. Sodium 136, potassium 5.3, chloride 108, BUN 83 creatinine 2.12, blood sugar 137. Magnesium was 2.4. TSH 4.380. Blood sugar 150. Troponin 0.035. Chest x-ray revealed cardiomegaly and chronic parenchymal changes with new elevated left diaphragm but no new suspicious focal infiltrate. Right knee x-ray showed no acute fracture or dislocation. Patient was given IV dopamine with some increase in her heart rate. She also received calcium gluconate and insulin, dextrose. Cardiology was immediately consult it and a temporary transvenous pacemaker was inserted. Patient was then admitted to the intensive care unit with plan for permanent pacemaker tomorrow. Echocardiogram is pending. 09/14: Patient denies any new complaints. She has been seen by Dr. Baker this morning and her heart rate was running in the 80s and 90s overriding the pacemaker. Patient has been in a normal sinus rhythm. Plan is to monitor the patient in the intensive care unit for another 24 hours and pulled the berger svenous pacer. Repeat blood work reveals WBC 8.4, hemoglobin 9.9, BUN 14 creatinine 1.27. Blood sugars are running between 133 and 167. Echocardiogram reveals EF 45-50%, severe concentric left ventricular hypertrophy, LA severely dilated greater than 40, moderate to severe aortic stenosis, moderate mitral regurgitation, moderate mitral stenosis, moderate to severe tricuspid regurgitation, moderate to severe pulmonary hypertension. Discharge plan will be home with [facility]. 09/15: patient is sitting up in bed in no acute distress, episodic confusion at night , recieves her lorazepam regularly as she does at home, she denies any chest pain or shortness of breath, no coughing, no abdominal pain, generalized weakness, and her monitor continues to show sinus rhythm with 1st degree AV block, she continues to have pauses and I believe she needs to have PPM placed and hopefully considering this prior to pulling her TVP out, she is upset today and she wanted to be discharged home, we will give her additional dose of Ativan, please keep in ICU till PPM is done. 09/16: Patient is sitting up in bed she is feeling better today she denies any chest pain, shortness breath, she is scheduled to go for permanent pacemaker placement tomorrow morning due to a sick sinus syndrome with a third-degree AV block, she is currently on transvenous pacemaker that is capturing all these at this time her heart rate is about 50 and her blood pressure is better than yesterday, patient denies any abdominal pain, she has no nausea or vomiting, she is less anxious since we increased her lorazepam to twice every day. 09/17: Patient remains in the intensive care unit. Heart rate has been running in the 50s. She is scheduled to undergo permanent pacemaker implantation today with Dr. Diana. She denies having any chest pain, lightheadedness, dizziness or palpitations. Repeat chest x-ray this morning is negative. Repeat blood work reveals hemoglobin of 9.6, sodium 141. potassium 5.4, chloride 115, CO2 21, BUN 48 and creatinine 1.24. Blood sugars have been running between 139 151. Objective - Vital Signs Vital signs: Vital Signs Temp 97.7 F 09/18/19 04:00 Pulse 57 L 09/18/19 07:00 Resp 14 09/18/19 07:00 BP 148/51 09/18/19 07:00 Pulse Ox 97 09/18/19 07:00 Intake & Output 09/17/19 09/18/19 09/18/19 18:59 06:59 18:59 Intake Total 2137 1436 100 Output Total 533 595 30 Balance 8884 841 70 Weight 61.7 kg 64.6 kg Intake: IV 580 1200 100 0.9 Normal Saline in TVP 300 600 50 Sodium Chloride 0.9% 1, 280 600 50 000 ml @ 20 mls/hr IV . Q[facility]H [facility] Rx#:[id number] Oral [id number] Output: Urine 533 595 30 Other: Voiding Method Indwelling Catheter Indwelling Catheter # Bowel Movements 1 - Exam Review of Systems Constitutional: Reports fatigue improved, Reports weakness, Denies anorexia, Denies chills, Denies fever, Denies poor appetite, Denies weight loss Ears, nose, mouth and throat: Denies dysphagia, Denies nasal congestion, Denies nasal discharge, Denies vertigo Cardiovascular: Denies chest pain, reports decreased exercise tolerance, reports dyspnea on exertion, Denies edema, Denies leg edema, Denies lightheadedness, Denies palpitations, Denies syncope Respiratory: Denies cough, Denies cough with sputum, reports dyspnea, Denies excessive sputum, Denies hemoptysis, Denies home oxygen, Denies wheezing Gastrointestinal: Denies nausea, denies vomiting, Denies abdominal pain, Denies diarrhea, Denies loss of appetite Genitourinary: Denies dysuria, Denies urgency, Denies urinary frequency Musculoskeletal: Reports gait dysfunction, Reports muscle weakness, Denies frequent falls, Denies myalgias Integumentary: Denies pruritus, Denies rash, Denies wounds Neurological: Reports gait dysfunction, Reports weakness, Denies burning pain, Denies change in speech, Denies paresthesias, Denies syncope Psychiatric: Denies anxiety, Denies depression Endocrine: Denies fatigue, Denies weight change Physical Examination Gen: This is an 84-year-old female. She is resting in ICU bed and appears to be comfortable. HEENT: Head is atraumatic, normocephalic. Pupils equal, round. Sclerae is anicteric. NECK: Supple. No JVD. No lymphadenopathy. No thyromegaly. LUNGS: Clear to auscultation. No wheezes or rhonchi. No intercostal retractions. HEART: Regular rate and rhythm. Systolic murmur. Temporary pacemaker in place. ABDOMEN: Soft. Bowel sounds are present. No masses. No tenderness. EXTREMITIES: 1+ pedal edema. Dorsalis pedis +1 bilaterally. NEUROLOGICAL: Patient is awake, alert and oriented x3. Cranial nerves 2 through 12 are grossly intact. - Labs CBC & Chem 7: 09/18/19 04:10 09/18/19 04:10 Labs: Abnormal Lab Results - Last 24 Hours (Table) 09/17/19 09/17/19 09/17/19 Range/Units 12:11 16:51 20:45 RBC (3.80-5.40) m/uL Hgb (11.4-16.0) gm/dL Hct (34.0-46.0) % MCV (80.0-100.0) fL Potassium (3.5-5.1) mmol/L Chloride (98-107) mmol/L Carbon Dioxide (22-30) mmol/L BUN (7-17) mg/dL Creatinine (0.52-1.04) mg/dL Glucose (74-99) mg/dL POC Glucose (mg/dL) 179 H 224 H 151 H (75-99) mg/dL Total Protein (6.3-8.2) g/dL Albumin (3.5-5.0) g/dL 09/18/19 09/18/19 09/18/19 Range/Units 04:10 04:10 06:43 RBC 2.78 L (3.80-5.40) m/uL Hgb 9.6 L (11.4-16.0) gm/dL Hct 29.8 L (34.0-46.0) % MCV 107.0 H (80.0-100.0) fL Potassium 5.4 H (3.5-5.1) mmol/L Chloride 115 H (98-107) mmol/L Carbon Dioxide 21 L (22-30) mmol/L BUN 48 H (7-17) mg/dL Creatinine 1.24 H (0.52-1.04) mg/dL Glucose 139 H (74-99) mg/dL POC Glucose (mg/dL) 139 H (75-99) mg/dL Total Protein 5.4 L (6.3-8.2) g/dL Albumin 2.9 L (3.5-5.0) g/dL 09/18/19 Range/Units 07:32 RBC (3.80-5.40) m/uL Hgb (11.4-16.0) gm/dL Hct (34.0-46.0) % MCV (80.0-100.0) fL Potassium (3.5-5.1) mmol/L Chloride (98-107) mmol/L Carbon Dioxide (22-30) mmol/L BUN (7-17) mg/dL Creatinine (0.52-1.04) mg/dL Glucose (74-99) mg/dL POC Glucose (mg/dL) 125 H (75-99) mg/dL Total Protein (6.3-8.2) g/dL Albumin (3.5-5.0) g/dL Assessment and Plan Plan: 1. Weakness and frequent falls secondary to third-degree heart block and sinus bradycardia with a second-degree AV block Mobitz type II. Cardiology consult appreciated. Patient is maintained in the intensive care unit. Permanent pacemaker implantation is scheduled for today. 2. Acute kidney injury with chronic kidney disease stage III. To baseline. 3. Hypertension. Continue Cardura 4 mg daily, hydralazine 50 mg twice daily, Procardia XL 90 mg daily. Hold losartan. 4. History of coronary artery disease status post CABG in 2011. Continue aspirin 81 mg daily, Lipitor 80 mg daily. 5. Valvular heart disease with moderate aortic stenosis, moderate mitral regurgitation, moderate tricuspid regurgitation, severe pulmonary hypertension 6. Hyperlipidemia. Continue Lipitor 80 mg daily. 7. Chronic diastolic heart failure, stable. Hold Lasix, spironolactone. 8. Diabetes mellitus type 2, insulin requiring, uncontrolled with hypoglycemia. Continue NovoLog scale before meals and at bedtime 9. Anemia of chronic disease. Continue ferrous sulfate 325 mg daily 10. Gout, chronic. Continue allopurinol 100 mg daily. 11. Generalized anxiety disorder. Lorazepam 1 mg twice daily. 12. Gastroesophageal reflux disease and GI prophylaxis. Continue Protonix. 13. DVT prophylaxis. Heparin subcu Discharge plan: Return home with [facility] on Wednesday. Impression and plan of care have been directed as dictated by the signing physician. Talia Schneider nurse practitioner acting as scribe for signing physician.
[2019-09-18] MEDS: SODIUM CHLORIDE 0.9% 1,000 ML IV SCH ×2 (13:10→21:08)
[2019-09-18] MEDS: CARVEDILOL 3.125 MG TAB PO SCH ×2 (13:11→16:44)
--- NOTE | 2019-09-18 13:56 | P.PN ---
Subjective Progress Note Date: 09/18/19 Principal diagnosis: High degree AV block 84-year-old female patient got admitted intensive care unit after having a transvenous temporary pacemaker in place for a high degree AV block which was essentially second-degree and sometimes third-degree. The patient is known to have coronary artery disease and previous bypass surgery that was done in 2011. 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 This patient was having generalized weakness and frequent falls. She has also fell on her knees which seems to be quite injured. No back injury. Her condition has gotten worse and the patient denied having any chest pain or anginal shortness of breath. She came into the hospital where the patient was found to have sign ificant bradycardia with a heart rate between 30 and 40 with at times it third- degree AV block as stated. Creatinine was at 2.1 which is slightly elevated compared to her baseline and the patient was taken Aldactone and her potassium level was at 5.3. This was stopped. She was also on clonidine on outpatient basis. She was not taking any form of beta blockers or calcium channel blockers. Chest x-ray revealed cardiomegaly and some elevation of the left hemidiaphragm with some mild pulmonary vessel congestion. X-ray of the knee showed no evidence of any fracture. The patient was given IV dopamine which helped her with her heart rate. Her hyperkalemia was treated with a calcium gluconate and insulin dextrose combination. This morning, had evidence of significant rhythm is first degree AV block and heart heart is in the 60s. No plans for permanent pacemaker insertion at this point in time. Potassium level is improved. Renal function is also improved. She is on no pressors for now. On today's evaluation of 09/15/2019, the patient is having a heart rate between 80 and 90. The patient is in normal sinus rhythm. The hand striper opted to keep him in ICU for another 24 hours for monitoring and there are no plans for permanent pacemaker insertion. Another 24 hour monitoring will be done prior to removing the transvenous pacemaker. Ejection fraction is 45%. She is a bit anxious as the patient takes Ativan twice a day even on outpatient basis. He is known to have CAD, diastolic heart failure hypertension and hyperlipidemia. She also has valvular heart disease with aortic and mitral stenosis. There is function is improved and the creatinine is down to 1.2. Potassium level is down to 4.7. She is receiving normal saline and I'm going to cut down the IV fluids to KVO. On 09/16/2019 and seeing the patient for a follow-up H is calm and comfortable. She still having some bradycardia arrhythmias as noted on the monitor the patient is occasionally utilizing the backup pacemaker. The backup pacemaker is set at the rate of 50. Her interested cardiac rhythm is a first-degree AV block, sinus. She is doing well otherwise been no specific complaints. Function is improved. Awaiting final recommendations from cardiology regarding the need for a permanent pacemaker insertion. On 09/17/2019, the patient is still having cardiac arrhythmia with a high degree AV block and the patient is going to have a pacemaker insertion tomorrow. Meanwhile, the backup transvenous pacemaker is set at the rate of 50 beats per minute. No chest pain. No respiratory distress. No confusion. No agitation. BP is under better control today's evaluation and blood pressure medication adjustments made yesterday. The plan is to proceed with a pacemaker insertion tomorrow. Reevaluated today on 09/18/19, patient is doing well, asymptomatic, temporary pacemaker in place, patient is doing well and she is scheduled to have a permanent pacemaker implantation today. Labs were reviewed, potassium is a bit elevated at 5.4. BUN is 48 creatinine is 1.24. Chest x-ray showed no significant change. Patchy bibasilar opacities noted. Objective - Vital Signs Vital signs: Vital Signs Temp 97.7 F 09/18/19 04:00 Pulse 57 L 09/18/19 07:00 Resp 14 09/18/19 07:00 BP 148/51 09/18/19 07:00 Pulse Ox 97 09/18/19 07:00 Intake & Output 09/17/19 09/18/19 09/18/19 18:59 06:59 18:59 Intake Total 2137 1436 100 Output Total 533 595 30 Balance 1604 841 70 Weight 61.7 kg 64.6 kg Intake: IV 580 1200 100 0.9 Normal Saline in TVP 300 600 50 Sodium Chloride 0.9% 1, 280 600 50 000 ml @ 20 mls/hr IV . Q24H [facility] Rx#:[id number] Oral [id number] Output: Urine 533 595 30 Other: Voiding Method Indwelling Catheter Indwelling Catheter # Bowel Movements 1 - Exam Physical Exam: Revealed an 84-year-old female in no distress. Head: Atraumatic normocephalic. HEENT:[Neck is supple.] [No neck masses.] [No thyromegaly.] [No JVD.] Chest: [Clear throughout, no crackles, no rhonchi, no wheezes.] Cardiac Exam: [Normal S1 and S2, 4/6 systolic murmur thought the precordium. There is also a diastolic rumble. Abdomen: [Soft, nontender, no megaly, no rebound, no guarding, normal bowel sounds.] Extremities: [No clubbing, no edema, no cyanosis.] Neurological Exam: [No focal neurologic deficit.] Alert oriented 3. Psychiatric: Normal mood affect and normal mental status examination. - Labs CBC & Chem 7: 09/18/19 04:10 09/18/19 04:10 Labs: Abnormal Lab Results - Last 24 Hours (Table) 09/17/19 09/17/19 09/18/19 Range/Units 16:51 20:45 04:10 RBC 2.78 L (3.80-5.40) m/uL Hgb 9.6 L (11.4-16.0) gm/dL Hct 29.8 L (34.0-46.0) % MCV 107.0 H (80.0-100.0) fL Potassium (3.5-5.1) mmol/L Chloride (98-107) mmol/L Carbon Dioxide (22-30) mmol/L BUN (7-17) mg/dL Creatinine (0.52-1.04) mg/dL Glucose (74-99) mg/dL POC Glucose (mg/dL) 224 H 151 H (75-99) mg/dL Total Protein (6.3-8.2) g/dL Albumin (3.5-5.0) g/dL 09/18/19 09/18/19 09/18/19 Range/Units 04:10 06:43 07:32 RBC (3.80-5.40) m/uL Hgb (11.4-16.0) gm/dL Hct (34.0-46.0) % MCV (80.0-100.0) fL Potassium 5.4 H (3.5-5.1) mmol/L Chloride 115 H (98-107) mmol/L Carbon Dioxide 21 L (22-30) mmol/L BUN 48 H (7-17) mg/dL Creatinine 1.24 H (0.52-1.04) mg/dL Glucose 139 H (74-99) mg/dL POC Glucose (mg/dL) 139 H 125 H (75-99) mg/dL Total Protein 5.4 L (6.3-8.2) g/dL Albumin 2.9 L (3.5-5.0) g/dL 09/18/19 Range/Units 12:47 RBC (3.80-5.40) m/uL Hgb (11.4-16.0) gm/dL Hct (34.0-46.0) % MCV (80.0-100.0) fL Potassium (3.5-5.1) mmol/L Chloride (98-107) mmol/L Carbon Dioxide (22-30) mmol/L BUN (7-17) mg/dL Creatinine (0.52-1.04) mg/dL Glucose (74-99) mg/dL POC Glucose (mg/dL) 139 H (75-99) mg/dL Total Protein (6.3-8.2) g/dL Albumin (3.5-5.0) g/dL Assessment and Plan Assessment: Impression: High degree AV block, patient is scheduled to have a permanent pacemaker implantation today. Coronary artery disease and previous CABG in 2011. Valvular heart disease with aortic and mitral stenosis. Benign essential hypertension. Secondary pulmonary hypertension secondary to valvular heart disease. Stage III chronic kidney disease. Type 2 diabetes. Chronic anemia. Mostly secondary to chronic disease. Dyslipidemia. History of gout. Recommendation: Agree with permanent pacemaker implantation today, discussed condition with the hand striper. Continue to monitor in the ICU for the next 24 hours. Continue to monitor blood pressure and treat accordingly. We will continue to follow. Time with Patient: Less than 30
[2019-09-18] MEDS: CLINDAMYCIN 900 MG in DEXTROSE 5% IN WATER 50 ML IVPB SCH ×4 (16:42→23:52)
[2019-09-18 17:54] LABS: Glucose,Whole Blood 199 mg/dL (75-99)
[2019-09-18] MEDS: ACETAMINOPHEN TAB 325 MG TAB PO PRN (21:05)
[2019-09-18] MEDS: PANTOPRAZOLE 40 MG TABLET PO SCH (21:06)
[2019-09-18] MEDS: ATORVASTATIN 80 MG TAB PO SCH (21:06)
[2019-09-18] MEDS: CHOLECALCIFEROL 1,000 UNIT TAB PO SCH (21:06)
[2019-09-18] MEDS: FERROUS SULFATE 325 MG TAB PO SCH (21:06)
[2019-09-18] MEDS: CYANOCOBALAMIN 500 MCG TAB PO SCH (21:07)
[2019-09-18] MEDS: POLYETHYLENE GLYCOL 3350 17 GM POWD.PACK PO SCH (21:43)
[2019-09-18 21:51] LABS: Glucose,Whole Blood 235 mg/dL (75-99)
[2019-09-19 04:05] LABS: HCT 26.6 % (34.0-46.0); HGB 8.2 gm/dL (11.4-16.0); Hypochromasia Slight; MCH 32.8 pg (25.0-35.0); MCHC 30.7 g/dL (31.0-37.0); MCV 106.8 fL (80.0-100.0); Macrocytosis Moderate; Mean Platelet Volume 8.7; Platelet Count 192 k/uL (150-450); RBC 2.49 m/uL (3.80-5.40); RDW 14.1 % (11.5-15.5); WBC 6.4 k/uL (3.8-10.6)
[2019-09-19 04:23] LABS: Albumin 2.6 g/dL (3.5-5.0); Calcium 9.1 mg/dL (8.4-10.2); Potassium 5.3 mmol/L (3.5-5.1); Total Bilirubin 0.4 mg/dL (0.2-1.3); Total Protein 5.1 g/dL (6.3-8.2)
[2019-09-19] MEDS: CLINDAMYCIN 900 MG in DEXTROSE 5% IN WATER 50 ML IVPB SCH ×4 (06:11→10:34)
[2019-09-19] MEDS: SODIUM CHLORIDE 0.9% 1,000 ML IV SCH ×2 (06:12)
[2019-09-19 07:05] LABS: Glucose,Whole Blood 125 mg/dL (75-99)
[2019-09-19] MEDS: INSULIN ASPART (NovoLOG) 100 UNIT/ML VIAL SQ SCH ×2 (07:07→11:48)
[2019-09-19] MEDS ORDERED: CARVEDILOL 6.25 MG TAB PO SCH (07:30)
--- NOTE | 2019-09-19 07:32 | PN ---
PROGRESS NOTE Mrs. Sainz is an 84-year-old female who presented with high-grade AV block underwent permanent pacemaker implantation yesterday by Dr. Diana. She is feeling better today. She denies any chest pain. She denies any dizziness or palpitation. She denies any nausea. Hemodynamically, she is stable. She continues to be at this time on aspirin once a day, Lipitor 80 mg daily. Coreg 3.125 mg twice a day, nifedipine 60 mg daily, Dyazide once a day, hydralazine 100 mg 3 times a day. PHYSICAL EXAMINATION: Blood pressure running in the 160s with the heart rate in the 60s. LUNGS: Clear. HEART: Regular rate and rhythm. S1, S2. No S3 with systolic murmur, ejection type heard at the base 3/6 rate in the mid peak and no diastolic murmur. ABDOMEN: Soft, nontender. EXTREMITIES: No edema. Left subclavian no hematoma. Pacemaker site clean. LAB DATA: Lab data revealed potassium 5.3. BUN and creatinine 45 and 1.15. Hemoglobin of 8.2. IMPRESSION: 1. High-grade AV block, status post permanent pacemaker implantation. 2. Hypertension. 3. Aortic stenosis, moderate in severity. 4. Hyperkalemia stable. She is off her losartan. 5. History of hypertension. 6. History of hyperlipidemia. RECOMMENDATION: I will increase the dose of her beta jayde, increase her level of activity. Will await the interrogation of her device. If there is no abnormality, I expect she may be able to be discharged home soon and followed as an outpatient by Dr. Diana. MMODL / KENTRELLN: [id number] /
--- NOTE | 2019-09-19 07:58 | XR ---
EXAMINATION TYPE: XR chest 2V DATE OF EXAM: 09/19/2019 COMPARISON: 09/18/2019 TECHNIQUE: PA and lateral views submitted. HISTORY: Lead placement check FINDINGS: The lungs are clear and there is no pneumothorax, pleural effusion, or focal pneumonia. Postoperati ve change and cardiac device seen. Heart is enlarged. Coarsened interstitium. Biapical pleural thicke nichole. Degenerative change of the spine. IMPRESSION: 1. Pacemaker placement with no sizable pneumothorax. 2. Correlate for COPD and chronic interstitial lung disease or congestion..
[2019-09-19] MEDS: LORazepam 1 MG TAB PO SCH (08:09)
[2019-09-19] MEDS: hydrALAZINE HCL 50 MG TAB PO SCH (08:10)
[2019-09-19] MEDS: ALLOPURINOL 100 MG TAB PO SCH (08:10)
[2019-09-19] MEDS: ASPIRIN 81 MG PO SCH (08:10)
[2019-09-19] MEDS: HEPARIN SODIUM,PORCINE 5,000 UNIT/ML 1 ML VIAL SQ SCH (08:11)
[2019-09-19] MEDS: SENNOSIDES-DOCUSATE SODIUM 1 EACH TAB PO SCH (08:11)
[2019-09-19] MEDS: TRIAMTERENE-HCTZ 37.5-25MG 1 EACH CAP PO SCH (08:11)
[2019-09-19] MEDS: DOXAZOSIN 4 MG TAB PO SCH (08:12)
[2019-09-19 08:54] VITALS: RESP 17
--- NOTE | 2019-09-19 10:22 | P.DS ---
Providers Date of admission: 09/13/19 20:04 Expected date of discharge: 09/19/19 Attending physician: Leela Bill Consults: 09/13/19 19:50 Consult Physician Routine Consulting Provider: Zack Roldan Consult Reason/Comments: Heart Block; Elevated trop Do you want consulting provider notified?: Already Contacted 09/13/19 20:02 Consult Physician Routine Consulting Provider: Savanah Arteaga Consult Reason/Comments: Critical Care management Do you want consulting provider notified?: Yes Primary care physician: Leela Bill [facility] Course: This is an 84-year-old female patient of Dr. Bill and Dr. Diana with past medical history of coronary artery disease status post CABG in 2012 followed by myocardial infarction, chronic systolic heart failure, chronic kidney disease stage III, diabetes mellitus type 2 insulin requiring, hyperlipidemia, hypertension, cervical stenosis, chronic back pain. Patient came into [facility] emergency center for generalized weakness and frequent falls. She denies any head injury or loss of consciousness. She did have a fall yesterday when she landed on her buttocks and injured her right knee. No back pain. Patient had worsening symptoms over the last couple of days. Patient denies any chest pain or shortness of breath. No nausea or vomiting. She has been eating and drinking okay. No fever or chills. Patient was found to have a heart rate in the 30s and 40s with initial EKG a third- degree heart block and second was a sinus bradycardia with a second-degree AV block Mobitz type II. Blood pressure was stable 134/53, afebrile and pulse ox was 100% on room air.. Sodium 136, potassium 5.3, chloride 108, BUN 83 creatinine 2.12, blood sugar 137. Magnesium was 2.4. TSH 4.380. Blood sugar 150. Troponin 0.035. Chest x-ray revealed cardiomegaly and chronic parenchymal changes with new elevated left diaphragm but no new suspicious focal infiltrate. Right knee x-ray showed no acute fracture or dislocation. Patient was given IV dopamine with some increase in her heart rate. She also received calcium gluconate and insulin, dextrose. Cardiology was immediately consult it and a te mporary transvenous pacemaker was inserted. Patient was then admitted to the intensive care unit with plan for permanent pacemaker tomorrow. Echocardiogram is pending. 09/14: Patient denies any new complaints. She has been seen by Dr. Baker this morning and her heart rate was running in the 80s and 90s overriding the pacemaker. Patient has been in a normal sinus rhythm. Plan is to monitor the p atient in the intensive care unit for another 24 hours and pulled the transvenous pacer. Repeat blood work reveals WBC 8.4, hemoglobin 9.9, BUN 14 creatinine 1.27. Blood sugars are running between 133 and 167. Echocardiogram reveals EF 45-50%, severe concentric left ventricular hypertrophy, LA severely dilated greater than 40, moderate to severe aortic stenosis, moderate mitral regurgitation, moderate mitral stenosis, moderate to severe tricuspid regurgitation, moderate to severe pulmonary hypertension. Discharge plan will be home with [facility]. 09/15: patient is sitting up in bed in no acute distress, episodic confusion at night , recieves her lorazepam regularly as she does at home, she denies any chest pain or shortness of breath, no coughing, no abdominal pain, generalized weakness, and her monitor continues to show sinus rhythm with 1st degree AV block, she continues to have pauses and I believe she needs to have PPM placed and hopefully considering this prior to pulling her TVP out, she is upset today and she wanted to be discharged home, we will give her additional dose of Ativan, please keep in ICU till PPM is done. 09/16: Patient is sitting up in bed she is feeling better today she denies any chest pain, shortness breath, she is scheduled to go for permanent pacemaker placement tomorrow morning due to a sick sinus syndrome with a third-degree AV block, she is currently on transvenous pacemaker that is capturing all these at this time her heart rate is about 50 and her blood pressure is better than yesterday, patient denies any abdominal pain, she has no nausea or vomiting, she is less anxious since we increased her lorazepam to twice every day. 09/17: Patient remains in the intensive care unit. Heart rate has been running in the 50s. She is scheduled to undergo permanent pacemaker implantation today with Dr. Diana. She denies having any chest pain, lightheadedness, dizziness or palpitations. Repeat chest x-ray this morning is negative. Repeat blood work reveals hemoglobin of 9.6, sodium 141. potassium 5.4, chloride 115, CO2 21, BUN 48 and creatinine 1.24. Blood sugars have been running between 139 151. 09/18: Yesterday, patient underwent permanent pacemaker implantation with Dr. Diana with a dual-chamber pacemaker. There were no postprocedure complications. She has been afebrile, heart rate 60, blood pressure 183/109 before medications. Repeat blood work reveals WBC 6.4, hemoglobin 8.2, platelet count 192. Sodium 142, potassium 5.3, chloride 118, CO2 21, BUN 45 and creatinine 1.15. Blood sugars running between 108 and 235. Patient is been cleared by cardiology for discharge home and will be discharged today in stable condition. Discharge diagnoses: 1. Weakness and frequent falls secondary to third-degree heart block and sinus bradycardia with a second-degree AV block Mobitz type II. Status post Permanent pacemaker implantation. 2. Acute kidney injury with chronic kidney disease stage III. 3. Hypertension. 4. History of coronary artery disease status post CABG in 2011. 5. Valvular heart disease with moderate aortic stenosis, moderate mitral regurgitation, moderate tricuspid regurgitation, severe pulmonary hypertension 6. Hyperlipidemia. 7. Chronic diastolic heart failure, stable. 8. Diabetes mellitus type 2, insulin requiring, uncontrolled with hypoglycemia. 9. Anemia of chronic disease. 10. Gout, chronic. 11. Generalized anxiety disorder. 12. Gastroesophageal reflux disease. Discharge plan: Return home with [facility]. Impression and plan of care have been directed as dictated by the signing physician. Talia Schneider nurse practitioner acting as scribe for signing physician. Patient Condition at Discharge: Serious Plan - Discharge Summary Discharge Rx Participant: Yes New Discharge Prescriptions: New Carvedilol [Coreg] 6.25 mg PO BID-W/MEALS #60 tab Triamterene-Hctz 37.5-25Mg [Dyazide 37.5-25 Capsule] 1 each PO DAILY #30 cap Polyethylene Glycol 3350 [Miralax] 17 gm PO HS #0 powd.pack Sennosides-Docusate Sodium [Senokot-S] 1 each PO DAILY PRN tab PRN Reason: Constipation Continue Omeprazole 40 mg PO HS Aspirin 162 mg PO DAILY@0800 Allopurinol 100 mg PO DAILY Nitroglycerin 0.2MG/Hr Patch [Nitro-Dur 0.2MG/Hr Patch] 1 patch TRANSDERM Q24H PRN PRN Reason: Chest Pain Ferrous Sulfate [Feosol] 325 mg PO HS Cholecalciferol [Vitamin D3 (25 Mcg = 1000 Iu)] 2,000 unit PO HS Ascorbic Acid [Vitamin C] 500 mg PO DAILY@0800 Atorvastatin [Lipitor] 80 mg PO HS hydrALAZINE HCL [Apresoline] 100 mg PO TID-W/MEALS Ubidecarenone [Co Q-10] 200 mg PO HS Cyanocobalamin [Vitamin B-12] 500 mcg PO HS NIFEdipine XL [Procardia XL] 90 mg PO DAILY Doxazosin [Cardura] 4 mg PO DAILY LORazepam [Ativan] 1 - 2 mg PO HS PRN PRN Reason: Insomnia Insulin NPL/Insulin Lispro [humaLOG MIX 75-25 VIAL] 5 - 15 unit SQ AC-TID Discontinued Spironolactone [Aldactone] 25 mg PO DAILY #30 tab Losartan [Cozaar] 50 mg PO BID #60 tab cloNIDine HCL [Catapres] 0.1 mg PO TID Furosemide [Lasix] 40 mg PO DAILY Discharge Medication List Allopurinol 100 mg PO DAILY 03/05/14 [History] Aspirin 162 mg PO DAILY@0800 03/05/14 [History] Omeprazole 40 mg PO HS 03/05/14 [History] Ascorbic Acid [Vitamin C] 500 mg PO DAILY@0800 09/24/14 [History] Atorvastatin [Lipitor] 80 mg PO HS 09/24/14 [History] Cholecalciferol [Vitamin D3 (25 Mcg = 1000 Iu)] 2,000 unit PO HS 09/24/14 [History] Ferrous Sulfate [Feosol] 325 mg PO HS 09/24/14 [History] Nitroglycerin 0.2MG/Hr Patch [Nitro-Dur 0.2MG/Hr Patch] 1 patch TRANSDERM Q24H PRN 09/24/14 [History] hydrALAZINE HCL [Apresoline] 100 mg PO TID-W/MEALS 07/04/17 [History] Cyanocobalamin [Vitamin B-12] 500 mcg PO HS 04/13/18 [History] Ubidecarenone [Co Q-10] 200 mg PO HS 04/13/18 [History] Doxazosin [Cardura] 4 mg PO DAILY 12/10/18 [History] NIFEdipine XL [Procardia XL] 90 mg PO DAILY 12/10/18 [History] Insulin NPL/Insulin Lispro [humaLOG MIX 75-25 VIAL] 5 - 15 unit SQ AC-TID 09/13/19 [History] LORazepam [Ativan] 1 - 2 mg PO HS PRN 09/13/19 [History] Carvedilol [Coreg] 6.25 mg PO BID-W/MEALS #60 tab 09/19/19 [Rx] Polyethylene Glycol 3350 [Miralax] 17 gm PO HS #0 powd.pack 09/19/19 [Rx] Sennosides-Docusate Sodium [Senokot-S] 1 each PO DAILY PRN tab 09/19/19 [Rx] Triamterene-Hctz 37.5-25Mg [Dyazide 37.5-25 Capsule] 1 each PO DAILY #30 cap 09/19/19 [Rx] Follow up Appointment(s)/Referral(s): [facility] Visiting Nurse, [NON-STAFF] - 1-2 Days Leela Bill MD [Primary Care Provider] - 1 Week Demetrius Diana MD [STAFF PHYSICIAN] - 1 Week Ambulatory/Diagnostic Orders: Basic Metabolic Panel [LAB.AMB] Location: None Selected Complete Blood Count w/diff [LAB.AMB] Location: None Selected Discharge Disposition: HOME WITH HOME HEALTH SERVICES
[2019-09-19 11:44] LABS: Glucose,Whole Blood 181 mg/dL (75-99)
[2019-09-19] MEDS ORDERED: FUROSEMIDE 10 MG/ML 4 ML VIAL IV STA (11:57)
[2019-09-19 12:14] VITALS: BP 120/68; PULSE 64; TEMP 97.6
--- NOTE | 2019-09-19 13:29 | P.PN ---
Subjective Progress Note Date: 09/19/19 Principal diagnosis: High degree AV block 84-year-old female patient got admitted intensive care unit after having a transvenous temporary pacemaker in place for a high degree AV block which was essentially second-degree and sometimes third-degree. The patient is known to have coronary artery disease and previous bypass surgery that was done in 2011. 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 This patient was having generalized weakness and frequent falls. She has also fell on her knees which seems to be quite injured. No back injury. Her condition has gotten worse and the patient denied having any chest pain or anginal shortness of breath. She came into the hospital where the patient was found to have sign ificant bradycardia with a heart rate between 30 and 40 with at times it third- degree AV block as stated. Creatinine was at 2.1 which is slightly elevated compared to her baseline and the patient was taken Aldactone and her potassium level was at 5.3. This was stopped. She was also on clonidine on outpatient basis. She was not taking any form of beta blockers or calcium channel blockers. Chest x-ray revealed cardiomegaly and some elevation of the left hemidiaphragm with some mild pulmonary vessel congestion. X-ray of the knee showed no evidence of any fracture. The patient was given IV dopamine which helped her with her heart rate. Her hyperkalemia was treated with a calcium gluconate and insulin dextrose combination. This morning, had evidence of significant rhythm is first degree AV block and heart heart is in the 60s. No plans for permanent pacemaker insertion at this point in time. Potassium level is improved. Renal function is also improved. She is on no pressors for now. On today's evaluation of 09/15/2019, the patient is having a heart rate between 80 and 90. The patient is in normal sinus rhythm. The tub mender opted to keep him in ICU for another 24 hours for monitoring and there are no plans for permanent pacemaker insertion. Another 24 hour monitoring will be done prior to removing the transvenous pacemaker. Ejection fraction is 45%. She is a bit anxious as the patient takes Ativan twice a day even on outpatient basis. He is known to have CAD, diastolic heart failure hypertension and hyperlipidemia. She also has valvular heart disease with aortic and mitral stenosis. There is function is improved and the creatinine is down to 1.2. Potassium level is down to 4.7. She is receiving normal saline and I'm going to cut down the IV fluids to KVO. On 09/16/2019 and seeing the patient for a follow-up H is calm and comfortable. She still having some bradycardia arrhythmias as noted on the monitor the patient is occasionally utilizing the backup pacemaker. The backup pacemaker is set at the rate of 50. Her interested cardiac rhythm is a first-degree AV block, sinus. She is doing well otherwise been no specific complaints. Function is improved. Awaiting final recommendations from cardiology regarding the need for a permanent pacemaker insertion. On 09/17/2019, the patient is still having cardiac arrhythmia with a high degree AV block and the patient is going to have a pacemaker insertion tomorrow. Meanwhile, the backup transvenous pacemaker is set at the rate of 50 beats per minute. No chest pain. No respiratory distress. No confusion. No agitation. BP is under better control today's evaluation and blood pressure medication adjustments made yesterday. The plan is to proceed with a pacemaker insertion tomorrow. Reevaluated today on 09/18/19, patient is doing well, asymptomatic, temporary pacemaker in place, patient is doing well and she is scheduled to have a permanent pacemaker implantation today. Labs were reviewed, potassium is a bit elevated at 5.4. BUN is 48 creatinine is 1.24. Chest x-ray showed no significant change. Patchy bibasilar opacities noted. Reevaluated today , patient underwent permanent pacemaker implantation yesterday, and she is in the ICU today, doing extremely well. Patient is paced at 60 bpm, she is asymptomatic, patient is asking to be discharged home, and she would likely be discharged today by cardiology. No active pulmonary issues, patient is again asymptomatic Objective - Vital Signs Vital signs: Vital Signs Temp 97.6 F 09/19/19 12:00 Pulse 64 09/19/19 12:00 Resp 17 09/19/19 12:00 BP 120/68 09/19/19 12:00 Pulse Ox 97 09/19/19 12:00 Intake & Output 09/18/19 09/19/19 09/19/19 18:59 06:59 18:59 Intake Total 1530 440 320 Output Total 450 1065 260 Balance 1080 -625 60 Weight 62.1 kg Intake: IV 100 390 200 0.9 Normal Saline in TVP 50 Clindamycin 900 mg In 50 Dextrose 5% in Water 50 ml @ 50 mls/hr IVPB ONCE ONE Rx#:[id number] Sodium Chloride 0.9% 1, 50 390 150 000 ml @ 20 mls/hr IV . Q24H RAFAT Rx#:[id number] Intake, IV Titration 600 50 Amount Sodium Chloride 0.9% 1, 150 000 ml @ 50 mls/hr IV . Q20H RAFAT Rx#:[id number] Sodium Chloride 0.9% 1, 450 50 000 ml @ 50 mls/hr IV . Q20H RAFAT Rx#:[id number] Oral 830 120 Output: Urine 450 1065 260 Other: Voiding Method Indwelling Catheter Indwelling Catheter Indwelling Catheter # Voids 1 # Bowel Movements 1 - Exam Physical Exam: Revealed an 84-year-old female in no distress. On room air. Head: Atraumatic normocephalic. HEENT:[Neck is supple.] [No neck masses.] [No thyromegaly.] [No JVD.] Chest: [Clear throughout, no crackles, no rhonchi, no wheezes.] Cardiac Exam: [Normal S1 and S2, 4/6 systolic murmur thought the precordium. There is also a diastolic rumble. Abdomen: [Soft, nontender, no megaly, no rebound, no guarding, normal bowel sounds.] Extremities: [No clubbing, no edema, no cyanosis.] Neurological Exam: [No focal neurologic deficit.] Alert oriented 3. Psychiatric: Normal mood affect and normal mental status examination. - Labs CBC & Chem 7: 09/19/19 03:44 09/19/19 03:44 Labs: Abnormal Lab Results - Last 24 Hours (Table) 09/18/19 09/18/19 09/19/19 Range/Units 17:35 21:50 03:44 RBC 2.49 L (3.80-5.40) m/uL Hgb 8.2 L (11.4-16.0) gm/dL Hct 26.6 L (34.0-46.0) % MCV 106.8 H (80.0-100.0) fL MCHC 30.7 L (31.0-37.0) g/dL Potassium (3.5-5.1) mmol/L Chloride (98-107) mmol/L Carbon Dioxide (22-30) mmol/L BUN (7-17) mg/dL Creatinine (0.52-1.04) mg/dL Glucose (74-99) mg/dL POC Glucose (mg/dL) 199 H 235 H (75-99) mg/dL Total Protein (6.3-8.2) g/dL Albumin (3.5-5.0) g/dL 09/19/19 09/19/19 09/19/19 Range/Units 03:44 07:03 11:43 RBC (3.80-5.40) m/uL Hgb (11.4-16.0) gm/dL Hct (34.0-46.0) % MCV (80.0-100.0) fL MCHC (31.0-37.0) g/dL Potassium 5.3 H (3.5-5.1) mmol/L Chloride 118 H (98-107) mmol/L Carbon Dioxide 21 L (22-30) mmol/L BUN 45 H (7-17) mg/dL Creatinine 1.15 H (0.52-1.04) mg/dL Glucose 108 H (74-99) mg/dL POC Glucose (mg/dL) 125 H 181 H (75-99) mg/dL Total Protein 5.1 L (6.3-8.2) g/dL Albumin 2.6 L (3.5-5.0) g/dL Assessment and Plan Assessment: Impression: High degree AV block status post permanent pacemaker implantation. Coronary artery disease and previous CABG in 2011. Valvular heart disease with aortic and mitral stenosis. Benign essential hypertension. Secondary pulmonary hypertension secondary to valvular heart disease. Stage III chronic kidney disease. Type 2 diabetes. Chronic anemia. Mostly secondary to chronic disease. Dyslipidemia. History of gout. Recommendation: Agree with discharge planning today. We'll follow on when necessary basis. Time with Patient: Less than 30
--- NOTE | 2019-09-20 12:55 | CDI ---
DDocumentation Clarification Form Date: 09/20/19 From: Cindy Flores CCS Phone: If you have a question about this query, please contact Yary Anthony, Cloth Finishing Range Operator at [phone] between 8am and 5pm. Admit Date: 09/13/19 Discharge Date: 09/19/19 Patient Name: Rochelle Sainz Visit Number: [id number] ATTENTION: The Clinical Documentation Specialists (CDI) and [facility] Coding Staff appreciate your assistance in clarifying documentation. Please respond to the clarification below the line at the bottom and electronically sign. The CDI & [facility] Coding staff will review the response and follow-up if needed. Please note: Queries are made part of the Legal Health Record. If you have any questions, please contact the author of this message via ITS. Dear Dr. Bill, Conflicting documentation has been found in the medical record: PNs 09/13-09/18 document: Diabetes mellitus type 2, insulin requiring, uncontrolled with hypoglycemia. Continue NovoLog scale before meals and at bedtime Labs: Glucose 150, 185, 221 History/Risk Factors: DM, CKD, HTN, RALPH, CHF Clinical Indicators: Uncontrolled DM Treatment: Insulin SQ In your opinion, what is the most clinically appropriate diagnosis for this patient? Diabetes type 2, uncontrolled with hyperglycemia Diabetes type 2, uncontrolled with hypoglycemia Other explanation of clinical findings Unable to determine (no explanation for clinical findings) DMT2 uncontrolled with hyperglycermia MTDD
== END 2019-09-19 13:02 | disposition home health service (06) | DRG 243 ==
LOC: EC 18:07 → 2SICU 20:04
PROVIDERS: ADMIT Internal Medicine; ATTEND Internal Medicine
PROC: 5A1223Z Performance of Cardiac Pacing, Continuous (ICD-10-PCS; 2019-09-13)
PROC: 02HK3JZ Insertion of Pacemaker Lead into Right Ventricle, Percutaneous Approach (ICD-10-PCS; principal; 2019-09-18 09:10)
PROC: 0JH606Z Insertion of Pacemaker, Dual Chamber into Chest Subcutaneous Tissue and Fascia, Open Approach (ICD-10-PCS; principal; 2019-09-18 09:10)
PROC: 02H63JZ Insertion of Pacemaker Lead into Right Atrium, Percutaneous Approach (ICD-10-PCS; principal; 2019-09-18 09:10)
DX: I44.2 Atrioventricular block, complete (principal); I13.0 Hypertensive heart and chronic kidney disease with heart failure and stage 1 through stage 4 chronic kidney disease, or unspecified chronic kidney disease; I42.9 Cardiomyopathy, unspecified; N17.9 Acute kidney failure, unspecified; I50.32 Chronic diastolic (congestive) heart failure; Z11.59 Encounter for screening for other viral diseases; I27.29 Other secondary pulmonary hypertension; D63.1 Anemia in chronic kidney disease; N18.3 Chronic kidney disease, stage 3 (moderate); E11.22 Type 2 diabetes mellitus with diabetic chronic kidney disease; E11.65 Type 2 diabetes mellitus with hyperglycemia; Z79.4 Long term (current) use of insulin; K21.9 Gastro-esophageal reflux disease without esophagitis; E87.5 Hyperkalemia; R29.6 Repeated falls; I44.1 Atrioventricular block, second degree; I25.10 Atherosclerotic heart disease of native coronary artery without angina pectoris; E78.5 Hyperlipidemia, unspecified; R00.1 Bradycardia, unspecified; M1A.9XX0 Chronic gout, unspecified, without tophus (tophi); F41.1 Generalized anxiety disorder; I08.3 Combined rheumatic disorders of mitral, aortic and tricuspid valves; S89.91XA Unspecified injury of right lower leg, initial encounter; G89.29 Other chronic pain; M48.02 Spinal stenosis, cervical region; M19.90 Unspecified osteoarthritis, unspecified site; I25.2 Old myocardial infarction; W19.XXXA Unspecified fall, initial encounter; Z79.899 Other long term (current) drug therapy; Z79.82 Long term (current) use of aspirin; Z95.1 Presence of aortocoronary bypass graft; Z90.710 Acquired absence of both cervix and uterus; Z88.5 Allergy status to narcotic agent; Z88.0 Allergy status to penicillin; Z83.3 Family history of diabetes mellitus; Z80.3 Family history of malignant neoplasm of breast; Z82.49 Family history of ischemic heart disease and other diseases of the circulatory system; Z81.1 Family history of alcohol abuse and dependence; Z84.1 Family history of disorders of kidney and ureter; Z83.79 Family history of other diseases of the digestive system; Z82.0 Family history of epilepsy and other diseases of the nervous system
CPT/HCPCS: 33208; 33210; 36415; 71045; 71046; 80048; 80053; 83036; 83735; 84443; 84484; 85025; 85027; 85610; 85730; 93005; 93306; 96361; 96365; 96374; 99291

== ENCOUNTER 2019-09-23 20:44 | Inpatient (IN) | payer MEDICARE ==
--- NOTE | 2019-09-23 22:29 | XR ---
EXAMINATION TYPE: XR chest 1V portable DATE OF EXAM: 09/23/2019 COMPARISON: 09/19/2019 HISTORY: Short of breath TECHNIQUE: FINDINGS: Heart is enlarged. There is mild pulmonary congestion. There is slight blunting of the cost ophrenic angles. There is a left axillary pacemaker. There are sternal wires. IMPRESSION: Mild congestive heart failure with small pleural effusions. Heart failure increased von red to last exam.
[2019-09-23 22:41] LABS: Basophils % (A) 0 %; Eosinophils # (A) 0.2 k/uL (0-0.7); Eosinophils % (A) 1 %; HCT 28.3 % (34.0-46.0); HGB 8.7 gm/dL (11.4-16.0); Hypochromasia Moderate; Lymphocytes # (A) 0.6 k/uL (1.0-4.8); Lymphocytes % (A) 4 %; MCH 32.9 pg (25.0-35.0); MCHC 30.8 g/dL (31.0-37.0); MCV 106.7 fL (80.0-100.0); Macrocytosis Moderate; Mean Platelet Volume 11.6; Monocytes # (A) 0.9 k/uL (0-1.0); Monocytes % (A) 5 %; Neutrophils # (A) 14.6 k/uL (1.3-7.7); Neutrophils % (A) 89 %; Platelet Count 246 k/uL (150-450); RBC 2.65 m/uL (3.80-5.40); RDW 14.4 % (11.5-15.5); WBC 16.4 k/uL (3.8-10.6)
--- NOTE | 2019-09-23 22:47 | XR ---
EXAMINATION TYPE: XR foot complete RT DATE OF EXAM: 09/23/2019 COMPARISON: NONE HISTORY: Bruising second digit TECHNIQUE: 3 views FINDINGS: Metatarsals are intact. I see no fracture nor dislocation. The toes appear intact. There is plantar calcaneal spurring. IMPRESSION: Calcaneal spurring. No fracture seen. Soft tissue swelling noted on the dorsum of the for efoot.
[2019-09-23 22:58] LABS: INR 0.9 (<1.2); Prothrombin Time 9.8 sec (9.0-12.0)
[2019-09-23 23:02] LABS: Albumin 3.6 g/dL (3.5-5.0); Calcium 9.6 mg/dL (8.4-10.2); Magnesium 2.3 mg/dL (1.6-2.3); Potassium 5.6 mmol/L (3.5-5.1); Total Bilirubin 0.7 mg/dL (0.2-1.3); Total Protein 6.4 g/dL (6.3-8.2)
--- NOTE | 2019-09-23 23:07 | ED ---
SOB HPI - General Chief Complaint: Shortness of Breath Stated Complaint: SAVANNAH Time Seen by Provider: 09/23/19 20:50 Source: EMS Mode of arrival: EMS Limitations: no limitations - History of Present Illness Initial Comments: The patient is an 84-year-old female with past history of coronary artery disease status post bypass, diabetes, high degree heart block with recent pacemaker placement who presents to the ER with acute shortness of breath. at bedside helps provide history. He states the patient became increasingly short of breath over the past day. Patient was recently admitted to the hospital and had pacemaker placement. He states that she went home and she was originally doing well however has become weak. He called EMS this devora varela. They did note that she was to Neck. They gave her DuoNeb breathing treatment and started her on CPAP. states she does not wear oxygen at home. No history of COPD. Denies history of DVT or PE. Does have a significant cardiac history. She denies any chest pain. Lower extremity sw elling has improved compared to previous hospital admission. He is on a diuretic at home and has been taking it as directed. Has been denies a cough. No fevers or chills. The remainder of the HPI is limited because the patient being a poor historian - Related Data Home Medications Medication Instructions Recorded Confirmed Allopurinol 100 mg PO DAILY 03/05/14 09/24/19 Aspirin 162 mg PO DAILY@0800 03/05/14 09/24/19 Omeprazole 40 mg PO HS 03/05/14 09/24/19 Ascorbic Acid [Vitamin C] 500 mg PO DAILY@0800 09/24/14 09/24/19 Atorvastatin [Lipitor] 80 mg PO HS 09/24/14 09/24/19 Cholecalciferol [Vitamin D3 (25 2,000 unit PO HS 09/24/14 09/24/19 Mcg = 1000 Iu)] Ferrous Sulfate [Feosol] 325 mg PO HS 09/24/14 09/24/19 Nitroglycerin 0.2MG/Hr Patch 1 patch TRANSDERM Q24H PRN 09/24/14 09/24/19 [Nitro-Dur 0.2MG/Hr Patch] hydrALAZINE HCL [Apresoline] 100 mg PO TID-W/MEALS 07/04/17 09/24/19 Cyanocobalamin [Vitamin B-12] 500 mcg PO HS 04/13/18 09/24/19 Ubidecarenone [Co Q-10] 200 mg PO HS 04/13/18 09/24/19 Doxazosin [Cardura] 4 mg PO DAILY 12/10/18 09/24/19 Insulin NPL/Insulin Lispro 5 - 15 unit SQ AC-TID 09/13/19 09/24/19 [humaLOG MIX 75-25 VIAL] LORazepam [Ativan] 1 - 2 mg PO HS PRN 09/13/19 09/24/19 Previous Rx's Medication Instructions Recorded Carvedilol [Coreg] 6.25 mg PO BID-W/MEALS #60 tab 09/19/19 Polyethylene Glycol 3350 [Miralax] 17 gm PO HS #0 powd.pack 09/19/19 Sennosides-Docusate Sodium 1 each PO DAILY PRN tab 09/19/19 [Senokot-S] Furosemide [Lasix] 40 mg PO BID #60 tab 09/26/19 diphenhydrAMINE & Zinc Cream 1 applic TOPICAL BID applic 09/26/19 [Benadryl Cream] Allergies Allergy/AdvReac Type Severity Reaction Status Date / Time cortisone Allergy Rash/Hives Verified 09/24/19 09:51 morphine Allergy Unknown Verified 09/24/19 09:51 Penicillins Allergy Rash/Hives Verified 09/24/19 09:51 Review of Systems ROS Statement: Those systems with pertinent positive or pertinent negative responses have been documented in the HPI. ROS Other: All systems not noted in ROS Statement are negative. 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 Last Myocardial Infarction Date:: 2011 History of Any Multi-Drug Resistant Organisms: None Reported Past Surgical History: Cholecystectomy, Coronary Bypass/CABG, Hysterectomy Additional Past Surgical History / Comment(s): 8x D&C, CABG 7 Blockages, bilateral foot surgery to remove tumors Past Anesthesia/Blood Transfusion Reactions: No Reported Reaction Past Psychological History: No Psychological Hx Reported Smoking Status: Never smoker Past Alcohol Use History: Occasional Past Drug Use History: None Reported - Past Family History Mother Family Medical History: Cancer, Diabetes Mellitus Additional Family Medical History / Comment(s): Mother at age 84 from Alzheimer's, old age. No coronary artery disease, no diabetes, history of breast cancer. Father Family Medical History: Congestive Heart Failure (CHF) Additional Family Medical History / Comment(s): Father in his early 80s from diabetes, occasions. No coronary artery disease. Brother(s) Family Medical History: Cancer (Patient is lives with her , functionally active denies any need a walker or assistance) Additional Family Medical History / Comment(s): Patient had total of 4 brothers. One at 69 from alcohol abuse. One at age 8 from kidney failure, a third brother has of unknown cause. One brother is alive at age 75 with no major medical problems. Sister(s) Additional Family Medical History / Comment(s): Patient has one sister with Crohn's 1 with irritable bowel syndrome. Patient does not have any children. General Exam Limitations: altered mental status General appearance: alert, in distress Head exam: Present: atraumatic, normocephalic, normal inspection Eye exam: Present: normal appearance, PERRL, EOMI. Absent: scleral icterus, conjunctival injection, periorbital swelling ENT exam: Present: normal exam, mucous membranes moist Neck exam: Present: normal inspection. Absent: tenderness, meningismus, lymphadenopathy Respiratory exam: Present: rales, accessory muscle use, decreased breath sounds Cardiovascular Exam: Present: normal rhythm, bradycardia GI/Abdominal exam: Present: soft, normal bowel sounds. Absent: distended, tenderness, guarding, rebound, rigid Extremities exam: Present: pedal edema, other (right second toe ecchymosis) Neurological exam: Present: alert Psychiatric exam: Present: flat affect Skin exam: Present: warm, dry, intact, normal color. Absent: rash Course Vital Signs 09/23/19 09/23/19 09/23/19 20:46 20:51 20:54 Temperature 97.9 F Pulse Rate 65 60 Respiratory 48 H 48 H 48 H Rate Blood Pressure 202/62 193/57 O2 Sat by Pulse 96 99 Oximetry 06/09/23/19 09/24/19 21:05 22:33 00:19 Temperature 98.6 F Pulse Rate 60 59 L Respiratory 24 23 Rate Blood Pressure 186/55 160/54 154/54 O2 Sat by Pulse 100 99 Oximetry Medical Decision Making - Medical Decision Making Upon arrival the patient is placed into room 1. A thorough history and physical exam is performed. Patient is transitioned or BiPAP. Patient is markedly hypertensive. Peripheral IV was established. Laboratory studies were conducted. Patient has a white count of 16.4 from a previous value of 6.4. Hemoglobin stable at 8.7. Potassium 5.6. Creatinine 1.2. BNP is 8850. Troponin 0.029. Chest x-ray is performed which demonstrates bilateral pleural effusions in central vascular congestion. This is new compared to previous. I discussed the results with the patient and her at bedside. I did re commend hospital admission. I discussed case with Dr. Bill who agreed to admit the patient. He would like pulmonology and cardiology be placed on consult. I did give her 40 mg of Lasix IV. Antibiotics ordered. Patient will be admitted to the telemetry floor - Lab Data Result diagrams: 09/26/19 06:07 09/26/19 06:07 Lab Results 09/23/19 09/23/19 09/23/19 Range/Units 20:50 20:50 20:50 WBC 16.4 H (3.8-10.6) k/uL RBC 2.65 L (3.80-5.40) m/uL Hgb 8.7 L (11.4-16.0) gm/dL Hct 28.3 L (34.0-46.0) % MCV 106.7 H (80.0-100.0) fL MCH 32.9 (25.0-35.0) pg MCHC 30.8 L (31.0-37.0) g/dL RDW 14.4 (11.5-15.5) % Plt Count 246 (150-450) k/uL Neutrophils % 89 % Lymphocytes % 4 % Monocytes % 5 % Eosinophils % 1 % Basophils % 0 % Neutrophils # 14.6 H (1.3-7.7) k/uL Lymphocytes # 0.6 L (1.0-4.8) k/uL Monocytes # 0.9 (0-1.0) k/uL Eosinophils # 0.2 (0-0.7) k/uL Basophils # 0.0 (0-0.2) k/uL Hypochromasia Moderate Macrocytosis Moderate PT 9.8 (9.0-12.0) sec INR 0.9 (<1.2) APTT 21.7 L (22.0-30.0) sec Sodium 138 (137-145) mmol/L Potassium 5.6 H (3.5-5.1) mmol/L Chloride 115 H (98-107) mmol/L Carbon Dioxide 17 L (22-30) mmol/L Anion Gap 6 mmol/L BUN 49 H (7-17) mg/dL Creatinine 1.28 H (0.52-1.04) mg/dL Est GFR (CKD-EPI)AfAm 45 (>60 ml/min/1.73 sqM) Est GFR (CKD-EPI)NonAf 39 (>60 ml/min/1.73 sqM) Glucose 195 H (74-99) mg/dL Plasma Lactic Acid Lennox (0.7-2.0) mmol/L Calcium 9.6 (8.4-10.2) mg/dL Magnesium 2.3 (1.6-2.3) mg/dL Total Bilirubin 0.7 (0.2-1.3) mg/dL AST 42 H (14-36) U/L ALT 29 (4-34) U/L Alkaline Phosphatase 101 (38-126) U/L Creatine Kinase 67 (30-135) U/L Troponin I (0.000-0.034) ng/mL NT-Pro-B Natriuret Pep pg/mL Total Protein 6.4 (6.3-8.2) g/dL Albumin 3.6 (3.5-5.0) g/dL Coronavirus (PCR) (Not Detected) 09/23/19 09/23/19 09/23/19 Range/Units 20:50 20:50 22:55 WBC (3.8-10.6) k/uL RBC (3.80-5.40) m/uL Hgb (11.4-16.0) gm/dL Hct (34.0-46.0) % MCV (80.0-100.0) fL MCH (25.0-35.0) pg MCHC (31.0-37.0) g/dL RDW (11.5-15.5) % Plt Count (150-450) k/uL Neutrophils % % Lymphocytes % % Monocytes % % Eosinophils % % Basophils % % Neutrophils # (1.3-7.7) k/uL Lymphocytes # (1.0-4.8) k/uL Monocytes # (0-1.0) k/uL Eosinophils # (0-0.7) k/uL Basophils # (0-0.2) k/uL Hypochromasia Macrocytosis PT (9.0-12.0) sec INR (<1.2) APTT (22.0-30.0) sec Sodium (137-145) mmol/L Potassium (3.5-5.1) mmol/L Chloride (98-107) mmol/L Carbon Dioxide (22-30) mmol/L Anion Gap mmol/L BUN (7-17) mg/dL Creatinine (0.52-1.04) mg/dL Est GFR (CKD-EPI)AfAm (>60 ml/min/1.73 sqM) Est GFR (CKD-EPI)NonAf (>60 ml/min/1.73 sqM) Glucose (74-99) mg/dL Plasma Lactic Acid Lennox 1.0 (0.7-2.0) mmol/L Calcium (8.4-10.2) mg/dL Magnesium (1.6-2.3) mg/dL Total Bilirubin (0.2-1.3) mg/dL AST (14-36) U/L ALT (4-34) U/L Alkaline Phosphatase (38-126) U/L Creatine Kinase (30-135) U/L Troponin I 0.029 (0.000-0.034) ng/mL NT-Pro-B Natriuret Pep 8850 pg/mL Total Protein (6.3-8.2) g/dL Albumin (3.5-5.0) g/dL Coronavirus (PCR) (Not Detected) 09/23/19 Range/Units 23:46 WBC (3.8-10.6) k/uL RBC (3.80-5.40) m/uL Hgb (11.4-16.0) gm/dL Hct (34.0-46.0) % MCV (80.0-100.0) fL MCH (25.0-35.0) pg MCHC (31.0-37.0) g/dL RDW (11.5-15.5) % Plt Count (150-450) k/uL Neutrophils % % Lymphocytes % % Monocytes % % Eosinophils % % Basophils % % Neutrophils # (1.3-7.7) k/uL Lymphocytes # (1.0-4.8) k/uL Monocytes # (0-1.0) k/uL Eosinophils # (0-0.7) k/uL Basophils # (0-0.2) k/uL Hypochromasia Macrocytosis PT (9.0-12.0) sec INR (<1.2) APTT (22.0-30.0) sec Sodium (137-145) mmol/L Potassium (3.5-5.1) mmol/L Chloride (98-107) mmol/L Carbon Dioxide (22-30) mmol/L Anion Gap mmol/L BUN (7-17) mg/dL Creatinine (0.52-1.04) mg/dL Est GFR (CKD-EPI)AfAm (>60 ml/min/1.73 sqM) Est GFR (CKD-EPI)NonAf (>60 ml/min/1.73 sqM) Glucose (74-99) mg/dL Plasma Lactic Acid Lennox (0.7-2.0) mmol/L Calcium (8.4-10.2) mg/dL Magnesium (1.6-2.3) mg/dL Total Bilirubin (0.2-1.3) mg/dL AST (14-36) U/L ALT (4-34) U/L Alkaline Phosphatase (38-126) U/L Creatine Kinase (30-135) U/L Troponin I (0.000-0.034) ng/mL NT-Pro-B Natriuret Pep pg/mL Total Protein (6.3-8.2) g/dL Albumin (3.5-5.0) g/dL Coronavirus (PCR) Not Detected (Not Detected) - EKG Data EKG Comments: EKG demonstrates a ventricularly paced rhythm with a rate of 68. QRS 170. QTC of 508. No acute ST segment elevations or depressions. No sgarbossa criteria Critical Care Time Critical Care Time: Yes Critical Care Time: 33 minutes for initiation and management of Bipap Disposition Clinical Impression: HCAP (healthcare-associated pneumonia), Pulmonary edema, Shortness of breath, BiPAP (biphasic positive airway pressure) dependence, Leukocytosis Disposition: ADMITTED IP TO THIS [facility] Condition: Stable Is patient prescribed a controlled substance at d/c from ED?: No Decision to Admit Reason: Admit from EC Decision Date: 09/23/19 Decision Time: 23:13
[2019-09-23] MEDS ORDERED: VANCOMYCIN IV PER PHARMACY 1 EACH MISC MISCELLANE PRN (23:12)
[2019-09-23] MEDS ORDERED: LEVOFLOXACIN 750MG-D5W PMX 750 MG in DEXTROSE/WATER 1 150ML.BAG IVPB STA (23:12)
[2019-09-23] MEDS ORDERED: VANCOMYCIN 1,250 MG in SODIUM CHLORIDE 0.9% 250 ML IVPB STA (23:18)
[2019-09-23 23:41] LABS: Partial Thromboplastin Time 21.7 sec (22.0-30.0)
[2019-09-23] MEDS ORDERED: FUROSEMIDE 10 MG/ML 4 ML VIAL IV STA (23:58)
[2019-09-24] MEDS ORDERED: NALOXONE 0.4 MG/ML 1 ML VIAL IV PRN (00:04)
[2019-09-24 00:25] LABS: ABG Base Excess -6.7 mmol/L; ABG HCO3 18 mmol/L (21-25); ABG Oxygen Saturation 99.4 % (94-97); ABG PCO2 30 mmHg (35-45); ABG PH 7.39 (7.35-7.45); ABG PO2 173 mmHg (83-108); ABG TCO2 19 mmol/L (19-24); Allen Test Performed? Yes
[2019-09-24 00:31] LABS: Glucose,Whole Blood 169 mg/dL (75-99)
[2019-09-24 06:12] LABS: Glucose,Whole Blood 108 mg/dL (75-99)
[2019-09-24] MEDS: INSULIN ASPART (NovoLOG) 100 UNIT/ML VIAL SQ SCH ×4 (06:27→21:38)
[2019-09-24] MEDS: FUROSEMIDE 10 MG/ML 4 ML VIAL IV SCH ×2 (09:07→21:33)
--- NOTE | 2019-09-24 10:14 | P.CRDCN ---
History of Present Illness Consult date: 09/24/19 Requesting physician: Leela Bill Reason for Consult (text): AECHF, recent ppm Chief complaint: shortness of breath History of present illness: This is a pleasant, somewhat confused 84-year-old female patient. She is a poor historian and most of the HPI was obtained from the chart. She has a history of recent pacemaker implantation for intermittent heart block done on 09/18/2019, prior CABG, congestive heart failure, diabetes, GERD, hyperlipidemia, hypertension, chronic kidney disease. Did undergo echocardiogram with Doppler study on 09/14/2019 which showed mildly impaired LV systolic function with an ejection fraction between 45-50%, apical anterior and apical septal hypokinesis with moderately enlarged RV, severely dilated LA, moderately enlarged RA, moderate to severe aortic stenosis with a peak gradient of 58.94 mmHg and a mean gradient of 30.55 mmHg, aortic valve area by continuing T equation is 0.7 cm. Severe mitral annular calcification, moderate MR, moderate MS, moderate to severe TR, moderate to severe pulmonary hypertension. Was brought to the emergency department via EMS with her who provided history to the ER staff. Had apparently developed some increasing shortness of breath throughout the day yesterday. Post discharge following pacemaker implantation she was originally doing well but became weak. EKG on admission showed 100% ventricular paced rhythm. Chest x-ray showed mild congestive heart failure with small pleural effusions, heart failure increased compared to last exam. Labs showed white blood cell count 16,400, hemoglobin 8.7, potassium 5.6, BUN 49, creatinine 1.28, troponin 0.029 and 0.038 with an NT proBNP of 8850. She was initially initiated on CPAP but since been transitioned to nasal cannula oxygen. At the time of my exam, patient is resting comfortably in bed in no acute distress. She initially denies having any trouble breathing at home but later in the conversation with the patient she thinks she may have had some shortness of breath. She denies any complaints of pain, palpitations, dizziness or lightheadedness. She denies any complaints of orthopnea or PND. 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 Last Myocardial Infarction Date:: 2011 History of Any Multi-Drug Resistant Organisms: None Reported Past Surgical History: Cholecystectomy, Coronary Bypass/CABG, Hysterectomy, Pacemaker Additional Past Surgical History / Comment(s): 8x D&C, CABG 7 Blockages, bilateral foot surgery to remove tumors Past Anesthesia/Blood Transfusion Reactions: No Reported Reaction Type of Cardiac Device: Permanent Pacemaker Device Placement Date:: 09/15/19 Smoking Status: Never smoker - Past Family History Mother Family Medical History: Cancer, Diabetes Mellitus Additional Family Medical History / Comment(s): Mother at age 84 from Alzheimer's, old age. No coronary artery disease, no diabetes, history of breas t cancer. Father Family Medical History: Congestive Heart Failure (CHF) Additional Family Medical History / Comment(s): Father in his early 80s from diabetes, occasions. No coronary artery disease. Brother(s) Family Medical History: Cancer (Patient is lives with her , functionally active denies any need a walker or assistance) Additional Family Medical History / Comment(s): Patient had total of 4 brothers. One at 69 from alcohol abuse. One at age 8 from kidney failure, a third brother has of unknown cause. One brother is alive at age 75 with no major medical problems. Sister(s) Additional Family Medical History / Comment(s): Patient has one sister with Crohn's 1 with irritable bowel syndrome. Patient does not have any children. Medications and Allergies Home Medications Medication Instructions Recorded Confirmed Type Allopurinol 100 mg PO DAILY 03/05/14 09/24/19 History Aspirin 162 mg PO DAILY@0800 03/05/14 09/24/19 History Omeprazole 40 mg PO HS 03/05/14 09/24/19 History Ascorbic Acid [Vitamin C] 500 mg PO DAILY@0800 09/24/14 09/24/19 History Atorvastatin [Lipitor] 80 mg PO HS 09/24/14 09/24/19 History Cholecalciferol [Vitamin D3 (25 2,000 unit PO HS 09/24/14 09/24/19 History Mcg = 1000 Iu)] Ferrous Sulfate [Feosol] 325 mg PO HS 09/24/14 09/24/19 History Nitroglycerin 0.2MG/Hr Patch 1 patch TRANSDERM Q24H PRN 09/24/14 09/24/19 History [Nitro-Dur 0.2MG/Hr Patch] hydrALAZINE HCL [Apresoline] 100 mg PO TID-W/MEALS 07/04/17 09/24/19 History Cyanocobalamin [Vitamin B-12] 500 mcg PO HS 04/13/18 09/24/19 History Ubidecarenone [Co Q-10] 200 mg PO HS 04/13/18 09/24/19 History Doxazosin [Cardura] 4 mg PO DAILY 12/10/18 09/24/19 History NIFEdipine XL [Procardia XL] 90 mg PO DAILY 12/10/18 09/24/19 History Insulin NPL/Insulin Lispro 5 - 15 unit SQ AC-TID 09/13/19 09/24/19 History [humaLOG MIX 75-25 VIAL] LORazepam [Ativan] 1 - 2 mg PO HS PRN 09/13/19 09/24/19 History Carvedilol [Coreg] 6.25 mg PO BID-W/MEALS #60 tab 09/19/19 09/24/19 Rx Polyethylene Glycol 3350 [Miralax] 17 gm PO HS #0 powd.pack 09/19/19 09/24/19 Rx Sennosides-Docusate Sodium 1 each PO DAILY PRN tab 09/19/19 09/24/19 Rx [Senokot-S] Triamterene-Hctz 37.5-25Mg 1 each PO DAILY #30 cap 09/19/19 09/24/19 Rx [Dyazide 37.5-25 Capsule] Allergies Allergy/AdvReac Type Severity Reaction Status Date / Time cortisone Allergy Rash/Hives Verified 09/24/19 09:51 morphine Allergy Unknown Verified 09/24/19 09:51 Penicillins Allergy Rash/Hives Verified 09/24/19 09:51 Physical Exam Vitals: Vital Signs Temp Pulse Pulse Resp BP BP Pulse Ox 09/24/19 03:39 16 09/24/19 03:35 97.6 F 57 L 16 152/64 98 09/24/19 01:44 22 09/24/19 01:19 97.6 F 87 18 131/52 96 09/24/19 00:19 98.6 F 59 L 23 154/54 99 09/23/19 22:33 60 24 160/54 100 09/23/19 21:05 186/55 09/23/19 20:54 48 H 09/23/19 20:51 60 48 H 193/57 99 09/23/19 20:46 97.9 F 65 48 H 202/62 96 Intake and Output 09/23/19 09/24/19 09/24/19 22:59 06:59 14:59 Other: Voiding Method Bedpan Diaper # Voids 1 # Bowel Movements 1 Weight 58.513 kg 62.6 kg PHYSICAL EXAMINATION: This is a 84-year-old female in no apparent distress at the time of my examination. VITAL SIGNS: Blood pressure 152/64, heart rate 57, respirations 16, temp 97.6F. Patient is 98 % on 2 L nasal cannula. HEENT: Head is atraumatic, normocephalic. Pupils are equal, round. Sclerae anicteric. Conjunctivae are clear. Mucous membranes of the mouth are moist. Neck is supple. There is elevated jugular venous pressure. No carotid bruit is heard. CHEST EXAMINATION: Reveal crackles bilateral bases. No wheezes or rhonchi. Respirations even and nonlabored. LIC site with Steri-Strips dry and intact, no ecchymosis or hematoma noted. HEART EXAMINATION: Heart regular regular, positive S1 and S2 with a systolic murmur. No clicks or rubs. ABDOMEN: Soft, nontender. Bowel sounds are heard. No organomegaly noted. EXTREMITIES: 1+ peripheral pulses with evidence of mild peripheral edema and no calf tenderness noted. NEUROLOGIC EXAMINATION: Patient is awake, alert and oriented x2, short term memory loss noted with some confusion. Results 09/23/19 20:50 09/23/19 20:50 Cardiac Enzymes 09/23/19 09/23/19 09/24/19 Range/Units 20:50 20:50 03:19 AST 42 H (14-36) U/L Troponin I 0.029 0.038 H* (0.000-0.034) ng/mL Coagulation 09/23/19 Range/Units 20:50 PT 9.8 (9.0-12.0) sec APTT 21.7 L (22.0-30.0) sec CBC 09/23/19 Range/Units 20:50 WBC 16.4 H (3.8-10.6) k/uL RBC 2.65 L (3.80-5.40) m/uL Hgb 8.7 L (11.4-16.0) gm/dL Hct 28.3 L (34.0-46.0) % Plt Count 246 (150-450) k/uL Comprehensive Metabolic Panel 09/23/19 Range/Units 20:50 Sodium 138 (137-145) mmol/L Potassium 5.6 H (3.5-5.1) mmol/L Chloride 115 H (98-107) mmol/L Carbon Dioxide 17 L (22-30) mmol/L BUN 49 H (7-17) mg/dL Creatinine 1.28 H (0.52-1.04) mg/dL Glucose 195 H (74-99) mg/dL Calcium 9.6 (8.4-10.2) mg/dL AST 42 H (14-36) U/L ALT 29 (4-34) U/L Alkaline Phosphatase 101 (38-126) U/L Total Protein 6.4 (6.3-8.2) g/dL Albumin 3.6 (3.5-5.0) g/dL Current Medications Generic Name Dose Route Start Last Admin Trade Name Freq PRN Reason Stop Dose Admin Furosemide 40 mg 09/24/19 09:00 09/24/19 09:07 Lasix IV 40 mg BID RAFAT Administration Vancomycin HCl 1,250 mg/ 250 mls @ 125 mls/hr 09/24/19 21:00 Sodium Chloride IVPB Q24H [facility] Insulin Aspart 0 unit 09/24/19 07:30 09/24/19 06:27 Novolog SQ Not Given ACHS [facility] Protocol Naloxone HCl 0.2 mg 09/24/19 00:04 Narcan IV Q2M PRN Opioid Reversal Intake and Output 09/23/19 09/24/19 09/24/19 22:59 06:59 14:59 Other: Voiding Method Bedpan Diaper # Voids 1 # Bowel Movements 1 Weight 58.513 kg 62.6 kg 09/23/19 20:50 09/23/19 20:50 EKG Interpretations (text) 100% Ventricular paced Assessment and Plan Assessment: #1 symptoms of worsening shortness of breath, likely secondary to acute on chronic congestive heart failure due to mild systolic dysfunction as well as valvular heart disease, could be decompensated due to 100% ventricular pacing #2 status post pacemaker implantation on 09/18/2019, currently 100% ventricular paced #3 CAD with prior CABG #4 hypertension #5 known valvular heart disease with evidence of aortic stenosis, mitral regurgitation and mitral stenosis on recent echo #6 pulmonary hypertension #7 hyperlipidemia #8 dementia Plan: From svp research & ebusiness operations perspective continue IV diuretics. We'll obtain a d-dimer. Obtain a limited echo to assess LV systolic function with 100% ventricular pacing. We will continue to follow the patient for further recommendations accordingly. PIE MAKER note has been reviewed, I agree with a documented findings and plan of care. Patient was seen and examined.
[2019-09-24] MEDS ORDERED: SENNOSIDES-DOCUSATE SODIUM 1 EACH TAB PO PRN (11:08)
[2019-09-24 12:03] LABS: Glucose,Whole Blood 173 mg/dL (75-99)
[2019-09-24] MEDS: hydrALAZINE HCL 50 MG TAB PO SCH ×2 (12:30→17:09)
[2019-09-24] MEDS: ASPIRIN 81 MG PO SCH (12:30)
--- NOTE | 2019-09-24 12:35 | P.CNPUL ---
History of Present Illness Consult date: 09/24/19 Requesting physician: Leela Bill Reason for consult: dyspnea, abnormal CXR/CT (Mild congestive heart failure small pleural effusions) Chief complaint: Shortness of breath, weakness History of present illness: This is a very pleasant 84-year-old female patient who follows with Dr. Bill as her primary care provider. The patient is known to have coronary artery disease and previous bypass surgery that was done in 2011. 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 This patient was having generalized weakness and frequent falls and was recently found to have a high degree AV block and received a permanent pacemaker implantation and discharged home on 09/19/2019. She was brought back to the emergency room yesterday with increasing weakness and increasing shortness of breath. Chest x-ray revealed evidence of mild congestive heart failure. She was given diuretics and placed on BiPAP overnight. She is seen today in consultation on the selective care unit. Currently awake and alert in no acute distress. She is maintaining good O2 saturations in the mid 90s on 2 L/m per nasal cannula. She's afebrile. Paced rhythm. White count 16.4. Hemoglobin 8.7. D-dimer 10.3. Arterial blood gases are on 50% FiO2 had revealed a PaO2 of 173, pCO2 30, pH 7.39. Creatinine 1.39. Sodium 138. Potassium 5.6. Bicarb 17. Troponin 0.030, 0.038. ProBNP 8850. She has been initiated on IV Lasix. She is also given vancomycin and Levaquin. Pro-calcitonin pending Review of Systems REVIEW OF SYSTEMS: CONSTITUTIONAL: Generalized weakness and fatigue. Denies any recent significant weight loss or weight gain. EYES: Denies change in vision. EARS, NOSE, MOUTH, THROAT: Denies headaches, denies sore throat. CARDIOVASCULAR: Denies chest pain, palpitations or syncopal episodes. RESPIRATORY: Positive for shortness of breath, no cough, congestion or hemoptysis. GASTROINTESTINAL: Denies change in appetite, denies abdominal pain GENITOURINARY: Denies hematuria, denies infections. MUSKULOSKELETAL: Denies pain, denies swelling. INTEGUMENTARY: Denies rash, denies eczema. NEUROLOGICAL: Denies recent memory loss, no recent seizure activity. PSYCHIATRIC: Denies anxiety, denies depression. HEMATOLOGIC/LYMPHATIC: Denies anemia, denies enlarged lymph nodes. Past Medical History Past Medical History: Coronary Artery Disease (CAD), Heart Failure, Diabetes Mellitus, GERD/Reflux, Hyperlipidemia, Hypertension, Myocardial Infarction ([place]), Osteoarthritis (OA), Renal Disease Additional Past Medical History / Comment(s): History of valvular heart disease with aortic stenosis, moderate mitral regurgitation stenosis, coronary artery disease with previous [place] and previous bypass surgery, chronic anemia, chronic osteoarthritis and neck pain, diabetes mellitus, hypertension and hyperlipidemia, secondary pulmonary hypertension related to valvular heart d isease Last Myocardial Infarction Date:: 2011 History of Any Multi-Drug Resistant Organisms: None Reported Past Surgical History: Cholecystectomy, Coronary Bypass/CABG, Hysterectomy, Pacemaker Additional Past Surgical History / Comment(s): 8x D&C, CABG 7 Blockages, bilateral foot surgery to remove tumors Past Anesthesia/Blood Transfusion Reactions: No Reported Reaction Type of Cardiac Device: Permanent Pacemaker Device Placement Date:: 09/15/19 Smoking Status: Never smoker - Past Family History Mother Family Medical History: Cancer, Diabetes Mellitus Additional Family Medical History / Comment(s): Mother at age 84 from Alzheimer's, old age. No coronary artery disease, no diabetes, history of breast cancer. Father Family Medical History: Congestive Heart Failure (CHF) Additional Family Medical History / Comment(s): Father in his early 80s from diabetes, occasions. No coronary artery disease. Brother(s) Family Medical History: Cancer (Patient is lives with her , functionally active denies any need a walker or assistance) Additional Family Medical History / Comment(s): Patient had total of 4 brothers. One at 69 from alcohol abuse. One at age 8 from kidney failure, a third brother has of unknown cause. One brother is alive at age 75 with no major medical problems. Sister(s) Additional Family Medical History / Comment(s): Patient has one sister with Crohn's 1 with irritable bowel syndrome. Patient does not have any children. Medications and Allergies Home Medications Medication Instructions Recorded Confirmed Type Allopurinol 100 mg PO DAILY 03/05/14 09/24/19 History Aspirin 162 mg PO DAILY@0800 03/05/14 09/24/19 History Omeprazole 40 mg PO HS 03/05/14 09/24/19 History Ascorbic Acid [Vitamin C] 500 mg PO DAILY@0800 09/24/14 09/24/19 History Atorvastatin [Lipitor] 80 mg PO HS 09/24/14 09/24/19 History Cholecalciferol [Vitamin D3 (25 2,000 unit PO HS 09/24/14 09/24/19 History Mcg = 1000 Iu)] Ferrous Sulfate [Feosol] 325 mg PO HS 09/24/14 09/24/19 History Nitroglycerin 0.2MG/Hr Patch 1 patch TRANSDERM Q24H PRN 09/24/14 09/24/19 Histor y [Nitro-Dur 0.2MG/Hr Patch] hydrALAZINE HCL [Apresoline] 100 mg PO TID-W/MEALS 07/04/17 09/24/19 History Cyanocobalamin [Vitamin B-12] 500 mcg PO HS 04/13/18 09/24/19 History Ubidecarenone [Co Q-10] 200 mg PO HS 04/13/18 09/24/19 History Doxazosin [Cardura] 4 mg PO DAILY 12/10/18 09/24/19 History NIFEdipine XL [Procardia XL] 90 mg PO DAILY 12/10/18 09/24/19 History Insulin NPL/Insulin Lispro 5 - 15 unit SQ AC-TID 09/13/19 09/24/19 History [humaLOG MIX 75-25 VIAL] LORazepam [Ativan] 1 - 2 mg PO HS PRN 09/13/19 09/24/19 History Carvedilol [Coreg] 6.25 mg PO BID-W/MEALS #60 tab 09/19/19 09/24/19 Rx Polyethylene Glycol 3350 [Miralax] 17 gm PO HS #0 powd.pack 09/19/19 09/24/19 Rx Sennosides-Docusate Sodium 1 each PO DAILY PRN tab 09/19/19 09/24/19 Rx [Senokot-S] Triamterene-Hctz 37.5-25Mg 1 each PO DAILY #30 cap 09/19/19 09/24/19 Rx [Dyazide 37.5-25 Capsule] Allergies Allergy/AdvReac Type Severity Reaction Status Date / Time cortisone Allergy Rash/Hives Verified 09/24/19 09:51 morphine Allergy Unknown Verified 09/24/19 09:51 Penicillins Allergy Rash/Hives Verified 09/24/19 09:51 Physical Exam Vitals: Vital Signs Temp Pulse Pulse Resp BP BP Pulse Ox 09/24/19 12:00 16 09/24/19 08:00 97.3 F L 80 16 139/62 97 09/24/19 03:39 16 09/24/19 03:35 97.6 F 57 L 16 152/64 98 09/24/19 01:44 22 09/24/19 01:19 97.6 F 87 18 131/52 96 09/24/19 00:19 98.6 F 59 L 23 154/54 99 09/23/19 22:33 60 24 160/54 100 09/23/19 21:05 186/55 09/23/19 20:54 48 H 09/23/19 20:51 60 48 H 193/57 99 09/23/19 20:46 97.9 F 65 48 H 202/62 96 Intake and Output 09/23/19 09/24/19 09/24/19 22:59 06:59 14:59 Other: Voiding Method Bedpan Bedpan Diaper Diaper # Voids 1 2 # Bowel Movements 1 Weight 58.513 kg 62.6 kg GENERAL EXAM: Alert, pleasant 84-year-old female patient, on 2 L nasal cannula, comfortable in no apparent distress. HEAD: Normocephalic. EYES: Normal reaction of pupils, equal size. NOSE: Clear with pink turbinates. THROAT: No erythema or exudates. NECK: No masses, no JVD. CHEST: No chest wall deformity. Steri-Strips to left subclavian pacemaker insertion site. LUNGS: Equal air entry with crackles in the bilateral posterior bases CVS: S1 and S2 normal with no audible murmur, regular rhythm. ABDOMEN: No hepatosplenomegaly, normal bowel sounds, no guarding or rigidity. SPINE: No scoliosis or deformity SKIN: No rashes CENTRAL NERVOUS SYSTEM: No focal deficits, tone is normal in all 4 extremities. EXTREMITIES: There is trace peripheral edema. No clubbing, no cyanosis. Peripheral pulses are intact. Results - Laboratory Findings CBC and BMP: 09/23/19 20:50 09/24/19 09:19 ABG ABG pH 7.39 (7.35-7.45) 09/24/19 00:22 ABG pCO2 30 mmHg (35-45) L 09/24/19 00:22 ABG pO2 173 mmHg (83-108) H 09/24/19 00:22 ABG O2 Saturation 99.4 % (94-97) H 09/24/19 00:22 PT/INR, D-dimer PT 9.8 sec (9.0-12.0) 09/23/19 20:50 INR 0.9 (<1.2) 09/23/19 20:50 D-Dimer 10.32 mg/L FEU (<0.60) H 09/24/19 10:33 Abnormal lab findings: Abnormal Labs 09/23/19 09/23/19 09/23/19 20:50 20:50 20:50 WBC 16.4 H RBC 2.65 L Hgb 8.7 L Hct 28.3 L MCV 106.7 H MCHC 30.8 L Neutrophils # 14.6 H Lymphocytes # 0.6 L APTT 21.7 L D-Dimer ABG pCO2 ABG pO2 ABG HCO3 ABG O2 Saturation Potassium 5.6 H Chloride 115 H Carbon Dioxide 17 L BUN 49 H Creatinine 1.28 H Glucose 195 H POC Glucose (mg/dL) AST 42 H Troponin I 09/24/19 09/24/19 09/24/19 00:22 00:30 03:19 WBC RBC Hgb Hct MCV MCHC Neutrophils # Lymphocytes # APTT D-Dimer ABG pCO2 30 L ABG pO2 173 H ABG HCO3 18 L ABG O2 Saturation 99.4 H Potassium Chloride Carbon Dioxide BUN Creatinine Glucose POC Glucose (mg/dL) 169 H AST Troponin I 0.038 H* 09/24/19 09/24/19 09/24/19 06:11 09:19 10:33 WBC RBC Hgb Hct MCV MCHC Neutrophils # Lymphocytes # APTT D-Dimer 10.32 H ABG pCO2 ABG pO2 ABG HCO3 ABG O2 Saturation Potassium Chloride Carbon Dioxide BUN Creatinine 1.39 H Glucose POC Glucose (mg/dL) 108 H AST Troponin I 09/24/19 12:02 WBC RBC Hgb Hct MCV MCHC Neutrophils # Lymphocytes # APTT D-Dimer ABG pCO2 ABG pO2 ABG HCO3 ABG O2 Saturation Potassium Chloride Carbon Dioxide BUN Creatinine Glucose POC Glucose (mg/dL) 173 H AST Troponin I - Diagnostic Findings Chest x-ray: image reviewed (Mild congestive heart failure) Assessment and Plan Assessment: 1 Acute hypoxic respiratory failure secondary to an acute exacerbation of systolic congestive heart failure, previous echocardiogram with ejection fraction 45-50%, EKG with RV pacing 2 Recent hospitalization (discharged 09/19/2019) for severe bradycardia secondar y to a second degree AV block/third degree AV block. Status post permanent pacemaker implantation. 3 coronary artery disease with previous bypass surgery in 2011 4 valvular heart disease with aortic stenosis and mitral stenosis 5 secondary pulmonary hypertension related to above 6 hypertension with hypertensive heart disease and hypertrophy of the LV 7 chronic stage III kidney disease 8 diabetes mellitus 9 hyperlipidemia 10 chronic anemia, anemia of chronic disease 11 gout 12 acid reflux Plan The patient was seen and evaluated by Dr. Javed Chest x-ray, ABG and labs reviewed She is improved post diuretics Pro calcitonin ordered Continue antibiotics for now We will continue to follow andmake further recommendations based on her clinical status. I, the cosigning physician, performed a history & physical examination of the patient. Lungs sounds with crackles in the bilateral bases. Maintaining good O2 saturations in the 90s on 2 L/m per nasal cannula. I discussed the assessment and plan of care with my nurse practitioner, Judi Dowell. I attest to the above consultation as dictated by her. Time with Patient: Greater than 30
--- NOTE | 2019-09-24 12:46 | P.HPIM ---
History of Present Illness H&P Date: 09/24/19 Chief Complaint: Shortness of breath This is an 84-year-old female patient of [facility] and Dr. Diana with past medical history of coronary artery disease status post CABG in 2011 followed by myocardial infarction, chronic systolic heart failure, chronic kidney disease stage III, diabetes mellitus type 2 insulin requiring, hyperlipidemia, hypertension, cervical stenosis, chronic back pain. Patient was recently hospitalized at [facility] from 09/13/2019 total 09/19/2019 after she was admitted because of a fall that was related to sick sinus syndrome with the third degree AV block ended up going for a permanent pacemaker placement that was done successfully and the patient was discharged home after she developed to have a significant accelerated hypertension with adjustment of a lot of her medication, patient underwent echocardiogram and the last hospital admission that showed a minimal LV dysfunction with an ejection fraction of 45- 50%, patient was sent home and she has been complaining of increased shortness breath as well as increased tiredness and she was brought into the ER at [facility] yesterday because of increased shortness breath she was initially placed on a BiPAP due to her hypoxemic respiratory failure and that sh e was given IV diuretics after her chest x-ray showed pulmonary vascular congestion with small bilateral pleural effusion, patient was admitted to the hospital for evaluation by pulmonary as well as by cardiology she was started on IV antibiotic and IV Lasix. Review of Systems Constitutional: Reports fatigue, Reports malaise, Reports weakness, Denies anorexia Eyes: denies blurred vision, denies bulging eye, denies decreased vision Ears: deny: decreased hearing Ears, nose, mouth and throat: Denies dysphagia, Denies sore throat Cardiovascular: Reports decreased exercise tolerance, Reports dyspnea on exertion, Reports leg edema, Reports shortness of breath, Denies chest pain, Denies lightheadedness, Denies rapid heart beat, Denies syncope Respiratory: Denies congestion, Denies cough, Denies cough with sputum, Denies home oxygen, Denies sleep apnea, Denies snoring, Denies wheezing Gastrointestinal: Reports constipation, Reports loss of appetite, Denies abdominal pain, Denies change in bowel habits, Denies heartburn, Denies melena, Denies nausea, Denies vomiting Genitourinary: Reports mixed incontinence, Reports nocturia, Reports urinary frequency, Denies dysuria Menstruation: Reports postmenopausal Musculoskeletal: Reports gait dysfunction, Reports low back pain Musculoskeletal: right: foot pain, bilateral: ankle swelling, absent: ankle pain, ankle stiffness, elbow pain, elbow stiffness, elbow swelling, foot stiffness, foot swelling, hand pain, hand stiffness, hand swelling, hip pain, hip stiffness, hip swelling, knee pain, knee stiffness, knee swelling, shoulder pain, shoulder stiffness, shoulder swelling, wrist pain, wrist stiffness, wrist swelling Integumentary: Denies pruritus, Denies rash Neurological: Denies numbness, Denies weakness Psychiatric: Reports anxiety, Denies depression, Denies sadness/tearfulness, Denies sleep disturbances, Denies suicidal ideation Endocrine: Denies fatigue, Denies weight change Past Medical History Past Medical History: Coronary Artery Disease (CAD), Heart Failure, Diabetes Mellitus, GERD/Reflux, Hyperlipidemia, Hypertension, Myocardial Infarction (FL), Osteoarthritis (OA), Renal Disease Additional Past Medical History / Comment(s): History of valvular heart disease with aortic stenosis, moderate mitral regurgitation stenosis, coronary artery disease with previous [place] and previous bypass surgery, chronic anemia, chronic osteoarthritis and neck pain, diabetes mellitus, hypertension and hyperlipidemia, 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 Last Myocardial Infarction Date:: 2011 History of Any Multi-Drug Resistant Organisms: None Reported Past Surgical History: Cholecystectomy, Coronary Bypass/CABG, Hysterectomy, Pacemaker Additional Past Surgical History / Comment(s): 8x D&C, CABG 7 Blockages, bilateral foot surgery to remove tumors Past Anesthesia/Blood Transfusion Reactions: No Reported Reaction Type of Cardiac Device: Permanent Pacemaker Device Placement Date:: 09/15/19 Smoking Status: Never smoker - Past Family History Mother Family Medical History: Cancer, Diabetes Mellitus Additional Family Medical History / Comment(s): Mother at age 84 from Alzheimer's, old age. No coronary artery disease, no diabetes, history of breast cancer. Father Family Medical History: Congestive Heart Failure (CHF) Additional Family Medical History / Comment(s): Father in his early 80s from diabetes, occasions. No coronary artery disease. Brother(s) Family Medical History: Cancer (Patient is lives with her , functionally active denies any need a walker or assistance) Additional Family Medical History / Comment(s): Patient had total of 4 brothers. One at 69 from alcohol abuse. One at age 8 from kidney failure, a third brother has of unknown cause. One brother is alive at age 75 with no major medical problems. Sister(s) Additional Family Medical History / Comment(s): Patient has one sister with Crohn's 1 with irritable bowel syndrome. Patient does not have any children. Medications and Allergies Home Medications Medication Instructions Recorded Confirmed Type Allopurinol 100 mg PO DAILY 03/05/14 09/24/19 History Aspirin 162 mg PO DAILY@0800 03/05/14 09/24/19 History Omeprazole 40 mg PO HS 03/05/14 09/24/19 History Ascorbic Acid [Vitamin C] 500 mg PO DAILY@0800 09/24/14 09/24/19 History Atorvastatin [Lipitor] 80 mg PO HS 09/24/14 09/24/19 History Cholecalciferol [Vitamin D3 (25 2,000 unit PO HS 09/24/14 09/24/19 History Mcg = 1000 Iu)] Ferrous Sulfate [Feosol] 325 mg PO HS 09/24/14 09/24/19 History Nitroglycerin 0.2MG/Hr Patch 1 patch TRANSDERM Q24H PRN 09/24/14 09/24/19 History [Nitro-Dur 0.2MG/Hr Patch] hydrALAZINE HCL [Apresoline] 100 mg PO TID-W/MEALS 07/04/17 09/24/19 History Cyanocobalamin [Vitamin B-12] 500 mcg PO HS 04/13/18 09/24/19 History Ubidecarenone [Co Q-10] 200 mg PO HS 04/13/18 09/24/19 History Doxazosin [Cardura] 4 mg PO DAILY 12/10/18 09/24/19 History NIFEdipine XL [Procardia XL] 90 mg PO DAILY 12/10/18 09/24/19 History Insulin NPL/Insulin Lispro 5 - 15 unit SQ AC-TID 09/13/19 09/24/19 History [humaLOG MIX 75-25 VIAL] LORazepam [Ativan] 1 - 2 mg PO HS PRN 09/13/19 09/24/19 History Carvedilol [Coreg] 6.25 mg PO BID-W/MEALS #60 tab 09/19/19 09/24/19 Rx Polyethylene Glycol 3350 [Miralax] 17 gm PO HS #0 powd.pack 09/19/19 09/24/19 Rx Sennosides-Docusate Sodium 1 each PO DAILY PRN tab 09/19/19 09/24/19 Rx [Senokot-S] Triamterene-Hctz 37.5-25Mg 1 each PO DAILY #30 cap 09/19/19 09/24/19 Rx [Dyazide 37.5-25 Capsule] Allergies Allergy/AdvReac Type Severity Reaction Status Date / Time cortisone Allergy Rash/Hives Verified 09/24/19 09:51 morphine Allergy Unknown Verified 09/24/19 09:51 Penicillins Allergy Rash/Hives Verified 09/24/19 09:51 Physical Exam Vitals: Vital Signs Temp Pulse Pulse Resp BP BP Pulse Ox 09/24/19 08:00 97.3 F L 80 16 139/62 97 09/24/19 03:39 16 09/24/19 03:35 97.6 F 57 L 16 152/64 98 09/24/19 01:44 22 09/24/19 01:19 97.6 F 87 18 131/52 96 09/24/19 00:19 98.6 F 59 L 23 154/54 99 09/23/19 22:33 60 24 160/54 100 09/23/19 21:05 186/55 09/23/19 20:54 48 H 09/23/19 20:51 60 48 H 193/57 99 09/23/19 20:46 97.9 F 65 48 H 202/62 96 Intake and Output 09/23/19 09/24/19 09/24/19 22:59 06:59 14:59 Other: Voiding Method Bedpan Bedpan Diaper Diaper # Voids 1 2 # Bowel Movements 1 Weight 58.513 kg 62.6 kg Physical examination: HEENT: Head is atraumatic, and worse, pupils were equal round reactive to light and accommodation, extraocular muscle movement were intact. Neck: Supple, no JVP, decreased carotid upstroke bilaterally. Chest: Decreased breath sound at the bases, few rhonchi, no expiratory wheezes, no chest wall tenderness, no intercostal retractions. Heart: Permanent pacemaker located in the left upper precordium with the Steri- Strips in place, first heart sound is depressed, second heart sound is normal, there is systolic ejection murmur 3/6 located in the right upper sternal border didn't to the neck. Abdomen: Soft, nontender, nondistended, positive bowel sounds. Extremities: Trace edema, no calf tenderness, dorsalis pedis posterior bilaterally. Neurologic examination: Patient is awake alert and oriented 3, cranial nerves III-12 are grossly intact, muscle power 4 out of 5 in upper extremities and 3 out of 5 in bilateral lower extremities. Skin examination: There is bruising to the right second toe that appears to be fractured, there are Steri-Strips to the left upper precordium or the pacemaker is with minimal swelling and without drainage. Results CBC & Chem 7: 09/23/19 20:50 09/24/19 09:19 Labs: Abnormal Lab Results - Last 24 Hours (Table) 09/23/19 09/23/19 09/23/19 Range/Units 20:50 20:50 20:50 WBC 16.4 H (3.8-10.6) k/uL RBC 2.65 L (3.80-5.40) m/uL Hgb 8.7 L (11.4-16.0) gm/dL Hct 28.3 L (34.0-46.0) % MCV 106.7 H (80.0-100.0) fL MCHC 30.8 L (31.0-37.0) g/dL Neutrophils # 14.6 H (1.3-7.7) k/uL Lymphocytes # 0.6 L (1.0-4.8) k/uL APTT 21.7 L (22.0-30.0) sec ABG pCO2 (35-45) mmHg ABG pO2 (83-108) mmHg ABG HCO3 (21-25) mmol/L ABG O2 Saturation (94-97) % Potassium 5.6 H (3.5-5.1) mmol/L Chloride 115 H (98-107) mmol/L Carbon Dioxide 17 L (22-30) mmol/L BUN 49 H (7-17) mg/dL Creatinine 1.28 H (0.52-1.04) mg/dL Glucose 195 H (74-99) mg/dL POC Glucose (mg/dL) (75-99) mg/dL AST 42 H (14-36) U/L Troponin I (0.000-0.034) ng/mL 09/24/19 09/24/19 09/24/19 Range/Units 00:22 00:30 03:19 WBC (3.8-10.6) k/uL RBC (3.80-5.40) m/uL Hgb (11.4-16.0) gm/dL Hct (34.0-46.0) % MCV (80.0-100.0) fL MCHC (31.0-37.0) g/dL Neutrophils # (1.3-7.7) k/uL Lymphocytes # (1.0-4.8) k/uL APTT (22.0-30.0) sec ABG pCO2 30 L (35-45) mmHg ABG pO2 173 H (83-108) mmHg ABG HCO3 18 L (21-25) mmol/L ABG O2 Saturation 99.4 H (94-97) % Potassium (3.5-5.1) mmol/L Chloride (98-107) mmol/L Carbon Dioxide (22-30) mmol/L BUN (7-17) mg/dL Creatinine (0.52-1.04) mg/dL Glucose (74-99) mg/dL POC Glucose (mg/dL) 169 H (75-99) mg/dL AST (14-36) U/L Troponin I 0.038 H* (0.000-0.034) ng/mL 09/24/19 09/24/19 Range/Units 06:11 09:19 WBC (3.8-10.6) k/uL RBC (3.80-5.40) m/uL Hgb (11.4-16.0) gm/dL Hct (34.0-46.0) % MCV (80.0-100.0) fL MCHC (31.0-37.0) g/dL Neutrophils # (1.3-7.7) k/uL Lymphocytes # (1.0-4.8) k/uL APTT (22.0-30.0) sec ABG pCO2 (35-45) mmHg ABG pO2 (83-108) mmHg ABG HCO3 (21-25) mmol/L ABG O2 Saturation (94-97) % Potassium (3.5-5.1) mmol/L Chloride (98-107) mmol/L Carbon Dioxide (22-30) mmol/L BUN (7-17) mg/dL Creatinine 1.39 H (0.52-1.04) mg/dL Glucose (74-99) mg/dL POC Glucose (mg/dL) 108 H (75-99) mg/dL AST (14-36) U/L Troponin I (0.000-0.034) ng/mL Thrombosis Risk Factor Assmnt - DVT/VTE Prophylaxis DVT/VTE Prophylaxis: Pharmacologic Prophylaxis ordered, Mechanical Prophylaxis ordered - Choose All That Apply Each Risk Factor Represents 3 Points: Age 75 years or older Thrombosis Risk Factor Assessment Total Risk Factor Score: 3 Thrombosis Risk Factor Assessment Level: Moderate Risk Assessment and Plan Plan: Assessment and plan: 1. Acute hypoxemic respiratory failure due to acute systolic heart failure. Continue patient on Lasix 40 mg IV push every 12 hours, continue Coreg 6.25 mg orally twice every day, restart the patient on small dose of losartan 25 mg orally once every day, monitor input and output and daily weight, monitor CMP, discontinue nifedipine, discontinue Dyazide, patient did have an echocardiogram just week ago and that showed mild LV dysfunction with ejection fraction of 45- 50% with severe aortic stenosis severe tricuspid regurgitation and severe pulmonary hypertension. 2. Third degree AV block status post permanent pacemaker placement. Appears to be stable at this point in time. 3. Left-sided pleural effusion with possible healthcare associated pneumonia. Continue vancomycin 1250 mg IV piggyback every 24 hours, pharmacy to dose its peak and trough, add Levaquin 250 mg IV piggyback every 24 hours, Procalcitonin and was ordered by pulmonary medicine's opinion the time of dictation. 4. Valvular heart disease in the form of severe aortic stenosis and moderate to severe tricuspid regurgitation with severe pulmonary hypertension. Continue to monitor the patient very closely, patient will likely require to have a to have TAVR procedure done with the patient recovers from this. 5. Hypertension and hypertensive cardio vascular disease. Continue patient on Cardura 4 mg orally once every day, Coreg 6.25 mg orally twice every day, hydralazine 100 mg orally 3 times every day, add small dose of losartan 25 mg orally once every day. 6. History of coronary artery disease status post CABG in 2011. Continue aspirin 81 mg daily, Lipitor 80 mg daily and Coreg 6.25 mg orally twice every day. 7. Valvular heart disease with severe aortic stenosis, moderate mitral regurgitation, moderate tricuspid regurgitation, severe pulmonary hypertension. Continue patient on Lasix 40 mg IV push every 12 hours. 8. Hyperlipidemia. Continue Lipitor 80 mg daily. 9. Diabetes mellitus type 2, insulin requiring, uncontrolled with hypoglycemia. Continue NovoLog scale before meals and at bedtime 10. Anemia of chronic disease. Continue ferrous sulfate 325 mg daily 11. Gout, chronic. Continue allopurinol 100 mg daily. 12. Generalized anxiety disorder. We will continue with lorazepam 1 mg orally twice every day as needed. 13. Gastroesophageal reflux disease and GI prophylaxis. Continue Protonix 40 m g orally once every day. 14. DVT prophylaxis. Heparin 5000 units subcutaneously every 8 hours. 15. Full code. 16. Admit to inpatient. Estimate length of stay 2 midnights.
[2019-09-24 16:17] VITALS: BMI 22.2
[2019-09-24 16:57] LABS: Glucose,Whole Blood 153 mg/dL (75-99)
[2019-09-24] MEDS: CARVEDILOL 6.25 MG TAB PO SCH (17:08)
[2019-09-24] MEDS: HEPARIN SODIUM,PORCINE 5,000 UNIT/ML 1 ML VIAL SQ SCH ×2 (17:08→23:25)
[2019-09-24] MEDS: INSULN ASP PRT/INSULIN ASPART 100 UNIT/ML 10 ML VIAL SQ SCH (17:08)
[2019-09-24] MEDS: NITROGLYCERIN 0.2MG/HR PATCH TRANSDERM SCH (17:09)
[2019-09-24 21:19] LABS: Glucose,Whole Blood 156 mg/dL (75-99)
[2019-09-24] MEDS: POLYETHYLENE GLYCOL 3350 17 GM POWD.PACK PO SCH (21:37)
[2019-09-24] MEDS: PANTOPRAZOLE 40 MG TABLET PO SCH (21:37)
[2019-09-24] MEDS: LORazepam 1 MG TAB PO SCH (21:38)
[2019-09-24] MEDS: ATORVASTATIN 80 MG TAB PO SCH (21:38)
[2019-09-24] MEDS: CHOLECALCIFEROL 1,000 UNIT TAB PO SCH (21:38)
[2019-09-24] MEDS: FERROUS SULFATE 325 MG TAB PO SCH (21:38)
[2019-09-24] MEDS: CYANOCOBALAMIN 500 MCG TAB PO SCH (21:38)
[2019-09-24] MEDS: LEVOFLOXACIN 250MG-D5W PMX 250 MG in DEXTROSE/WATER 1 50ML.BAG IVPB SCH (21:39)
[2019-09-24] MEDS: NON FORMULARY DRUG (Ubidecarenone [Co Q-10] 200 MG) PO SCH (21:45)
[2019-09-24] MEDS: VANCOMYCIN 1,250 MG in SODIUM CHLORIDE 0.9% 250 ML IVPB SCH (22:26)
[2019-09-25 06:31] LABS: Glucose,Whole Blood 131 mg/dL (75-99)
[2019-09-25] MEDS: CARVEDILOL 6.25 MG TAB PO SCH ×2 (06:37→15:51)
[2019-09-25] MEDS: hydrALAZINE HCL 50 MG TAB PO SCH ×3 (06:37→15:50)
[2019-09-25] MEDS: INSULN ASP PRT/INSULIN ASPART 100 UNIT/ML 10 ML VIAL SQ SCH ×2 (06:39→17:58)
[2019-09-25] MEDS: INSULIN ASPART (NovoLOG) 100 UNIT/ML VIAL SQ SCH ×4 (06:39→22:17)
[2019-09-25 07:25] LABS: Basophils % (A) 0 %; Eosinophils # (A) 0.5 k/uL (0-0.7); Eosinophils % (A) 7 %; HCT 24.2 % (34.0-46.0); HGB 7.9 gm/dL (11.4-16.0); Hypochromasia Slight; Lymphocytes # (A) 0.8 k/uL (1.0-4.8); Lymphocytes % (A) 12 %; MCH 34.6 pg (25.0-35.0); MCHC 32.5 g/dL (31.0-37.0); MCV 106.5 fL (80.0-100.0); Macrocytosis Moderate; Mean Platelet Volume 9.5; Monocytes # (A) 0.4 k/uL (0-1.0); Monocytes % (A) 6 %; Neutrophils % (A) 73 %; Platelet Count 234 k/uL (150-450); RBC 2.27 m/uL (3.80-5.40); RDW 14.5 % (11.5-15.5); WBC 6.9 k/uL (3.8-10.6)
[2019-09-25 07:39] LABS: Calcium 9.4 mg/dL (8.4-10.2); Total Bilirubin 0.8 mg/dL (0.2-1.3); Total Protein 5.6 g/dL (6.3-8.2)
[2019-09-25] MEDS ORDERED: ASPIRIN 81 MG PO SCH (08:00)
[2019-09-25] MEDS ORDERED: LOSARTAN 25 MG TAB PO STA (08:16)
[2019-09-25] MEDS: DOXAZOSIN 4 MG TAB PO SCH (08:48)
[2019-09-25] MEDS: ALLOPURINOL 100 MG TAB PO SCH (08:49)
[2019-09-25] MEDS: HEPARIN SODIUM,PORCINE 5,000 UNIT/ML 1 ML VIAL SQ SCH ×3 (08:49→23:42)
[2019-09-25] MEDS: ASPIRIN 81 MG PO SCH (08:49)
[2019-09-25] MEDS: FUROSEMIDE 40 MG TAB PO SCH ×2 (08:49→22:04)
[2019-09-25] MEDS: LORazepam 1 MG TAB PO SCH ×2 (08:49→22:04)
--- NOTE | 2019-09-25 10:30 | P.PN ---
Subjective Progress Note Date: 09/25/19 This is an 84-year-old female patient of [facility] and Dr. Diana with past medical history of coronary artery disease status post CABG in 2011 followed by myocardial infarction, chronic systolic heart failure, chronic kidney disease stage III, diabetes mellitus type 2 insulin requiring, hyperl ipidemia, hypertension, cervical stenosis, chronic back pain. Patient was recently hospitalized at [facility] from 09/13/2019 total 09/19/2019 after she was admitted because of a fall that was related to sick sinus syndrome with the third degree AV block ended up going for a permanent pacemaker placement that was done successfully and the patient was discharged home after she developed to have a significant accelerated hypertension with adjustment of a lot of her medication, patient underwent echocardiogram and the last hospital admission that showed a minimal LV dysfunction with an ejection fraction of 45- 50%, patient was sent home and she has been complaining of increased shortness breath as well as increased tiredness and she was brought into the ER at [facility] yesterday because of increased shortness breath she was initially placed on a BiPAP due to her hypoxemic respiratory failure and that she was given IV diuretics after her chest x-ray showed pulmonary vascular congestion with small bilateral pleural effusion, patient was admitted to the hospital for evaluation by pulmonary as well as by cardiology she was started on IV antibiotic and IV Lasix. 09/24: Patient is seen today in the cardiac stepdown unit. She has been evaluated by both pulmonary medicine and cardiology. Patient does show improvement after diuretics. Patient has been hemodynamically stable with heart rate in the 60s, blood pressure 166/64, pulse ox 100% on room air, afebrile. Due to worsening creatinine, losartan discontinued. IV Lasix changed to oral 40 mg twice daily. Repeat blood work reveals BUN 42, creatinine 1.4, hemoglobin 7.9. WBCs normalized to 6.9. D-dimer came back at 10.32 and VQ scan has been ordered by cardiology. Echocardiogram ordered. Troponins have been 0.029, 0.038, 0.030. Coronavirus not detected. Objective - Vital Signs Vital signs: Vital Signs Temp 97.7 F 09/25/19 03:16 Pulse 62 09/25/19 03:16 Resp 14 09/25/19 03:19 BP 148/68 09/25/19 03:16 Pulse Ox 96 09/25/19 03:16 Intake & Output 09/24/19 09/25/19 09/25/19 18:59 06:59 18:59 Intake Total 712 Output Total 500 Balance 712 -500 Weight 62.6 kg 62.3 kg Intake: Oral 712 Output: Urine 500 Other: Voiding Method Bedpan Toilet Diaper Diaper # Voids 2 2 - Exam Review of Systems Constitutional: Reports fatigue, Reports malaise, Reports weakness, Denies anorexia Eyes: denies blurred vision, denies decreased vision Ears: deny: decreased hearing Ears, nose, mouth and throat: Denies dysphagia, Denies sore throat Cardiovascular: Reports decreased exercise tolerance, Reports dyspnea on exertion, Reports leg edema, Reports shortness of breath, Denies chest pain, Denies lightheadedness, Denies rapid heart beat, Denies syncope Respiratory: Denies congestion, Denies cough, Denies cough with sputum, Denies home oxygen, Denies sleep apnea, Denies snoring, Denies wheezing Gastrointestinal: Reports constipation, Reports loss of appetite, Denies abdominal pain, Denies change in bowel habits, Denies heartburn, Denies melena, Denies nausea, Denies vomiting Genitourinary: Reports mixed incontinence, Reports nocturia, Reports urinary frequency, Denies dysuria Menstruation: Reports postmenopausal Musculoskeletal: Reports gait dysfunction, Reports low back pain Musculoskeletal: right: foot pain, bilateral: ankle swelling, absent: ankle pain, ankle stiffness, elbow pain, elbow stiffness, elbow swelling, foot stiffness, foot swelling, hand pain, hand stiffness, hand swelling, hip pain, hip stiffness, hip swelling, knee pain, knee stiffness, knee swelling, shoulder pain, shoulder stiffness, shoulder swelling, wrist pain, wrist stiffness, wrist swelling Integumentary: Denies pruritus, Denies rash Neurological: Denies numbness, Denies weakness Psychiatric: Reports anxiety, Denies depression, Denies sadness/tearfulness, Denies sleep disturbances, Denies suicidal ideation Endocrine: Denies fatigue, Denies weight change Physical examination: GEN: This is an 84-year-old female. She is sitting up in bed and appears comfortable and in no acute distress. HEENT: Head is atraumatic, and worse, pupils were equal round reactive to light and accommodation, extraocular muscle movement were intact. Neck: Supple, no JVP, decreased carotid upstroke bilaterally. Chest: Decreased breath sound at the bases, few rhonchi, no expiratory wheezes, no chest wall tenderness, no intercostal retractions. Heart: Permanent pacemaker located in the left upper precordium with the Steri- Strips in place, first heart sound is depressed, second heart sound is normal, there is systolic ejection murmur 3/6 located in the right upper sternal border didn't to the neck. Abdomen: Soft, nontender, nondistended, positive bowel sounds. Extremities: Trace edema, no calf tenderness, dorsalis pedis posterior bilaterally. Neurologic examination: Patient is awake alert and oriented 3, cranial nerves III-12 are grossly intact, muscle power 4 out of 5 in upper extremities and 3 out of 5 in bilateral lower extremities. Skin examination: There is bruising to the right second toe that appears to be fractured, there are Steri-Strips to the left upper precordium or the pacemaker is with minimal swelling and without drainage. - Labs CBC & Chem 7: 09/25/19 06:47 09/25/19 06:47 Labs: Abnormal Lab Results - Last 24 Hours (Table) 09/24/19 09/24/19 09/24/19 Range/Units 09:19 10:33 12:02 RBC (3.80-5.40) m/uL Hgb (11.4-16.0) gm/dL Hct (34.0-46.0) % MCV (80.0-100.0) fL Lymphocytes # (1.0-4.8) k/uL D-Dimer 10.32 H (<0.60) mg/L FEU Chloride (98-107) mmol/L BUN (7-17) mg/dL Creatinine 1.39 H (0.52-1.04) mg/dL Glucose (74-99) mg/dL POC Glucose (mg/dL) 173 H (75-99) mg/dL Total Protein (6.3-8.2) g/dL Albumin (3.5-5.0) g/dL 09/24/19 09/24/19 09/25/19 Range/Units 16:56 21:18 06:30 RBC (3.80-5.40) m/uL Hgb (11.4-16.0) gm/dL Hct (34.0-46.0) % MCV (80.0-100.0) fL Lymphocytes # (1.0-4.8) k/uL D-Dimer (<0.60) mg/L FEU Chloride (98-107) mmol/L BUN (7-17) mg/dL Creatinine (0.52-1.04) mg/dL Glucose (74-99) mg/dL POC Glucose (mg/dL) 153 H 156 H 131 H (75-99) mg/dL Total Protein (6.3-8.2) g/dL Albumin (3.5-5.0) g/dL 09/25/19 09/25/19 Range/Units 06:47 06:47 RBC 2.27 L (3.80-5.40) m/uL Hgb 7.9 L (11.4-16.0) gm/dL Hct 24.2 L (34.0-46.0) % MCV 106.5 H (80.0-100.0) fL Lymphocytes # 0.8 L (1.0-4.8) k/uL D-Dimer (<0.60) mg/L FEU Chloride 112 H (98-107) mmol/L BUN 42 H (7-17) mg/dL Creatinine 1.40 H (0.52-1.04) mg/dL Glucose 107 H (74-99) mg/dL POC Glucose (mg/dL) (75-99) mg/dL Total Protein 5.6 L (6.3-8.2) g/dL Albumin 3.0 L (3.5-5.0) g/dL Microbiology - Last 24 Hours (Table) 09/24/19 00:15 Blood Culture - Preliminary Blood No Growth after 24 hours Assessment and Plan Plan: Assessment and plan: 1. Acute hypoxemic respiratory failure due to acute systolic heart failure. Discontinue IV Lasix and transitioned to oral 40 mg twice daily, continue Coreg 6.25 mg orally twice every day, hold losartan for increasing creatinine, monitor input and output and daily weight, monitor CMP, discontinue nifedipine, discontinue Dyazide, patient did have an echocardiogram just week ago and that showed mild LV dysfunction with ejection fraction of 45-50% with severe aortic stenosis severe tricuspid regurgitation and severe pulmonary hypertension. Repeat echocardiogram has been ordered by cardiology. D-dimer is elevated and VQ scan is pending. 2. Third degree AV block status post permanent pacemaker placement. Appears to be stable at this point in time. 3. Left-sided pleural effusion with possible healthcare associated pneumonia. Continue vancomycin pharmacy to dose, Levaquin 250 mg IV piggyback every 24 hours, Procalcitonin and was ordered by pulmonary medicine and remains pending. 4. Valvular heart disease in the form of severe aortic stenosis and moderate to severe tricuspid regurgitation with severe pulmonary hypertension. Continue to monitor the patient very closely, patient will likely require to have a to have TAVR procedure done with the patient recovers from this. 5. Hypertension and hypertensive cardio vascular disease. Continue patient on Cardura 4 mg orally once every day, Coreg 6.25 mg orally twice every day, hydralazine 100 mg orally 3 times every day. 6. History of coronary artery disease status post CABG in 2011. Continue aspirin 81 mg daily, Lipitor 80 mg daily and Coreg 6.25 mg orally twice every day. 7. Valvular heart disease with severe aortic stenosis, moderate mitral regurgitation, moderate tricuspid regurgitation, severe pulmonary hypertension. Continue patient on Lasix 40 mg oral twice daily. 8. Hyperlipidemia. Continue Lipitor 80 mg daily. 9. Diabetes mellitus type 2, insulin requiring, uncontrolled with hypoglycemia. Continue NovoLog scale before meals and at bedtime 10. Anemia of chronic disease. Continue ferrous sulfate 325 mg daily 11. Gout, chronic. Continue allopurinol 100 mg daily. 12. Generalized anxiety disorder. We will continue with lorazepam 1 mg orally twice every day as needed. 13. Gastroesophageal reflux disease and GI prophylaxis. Continue Protonix 40 mg orally once every day. 14. DVT prophylaxis. Heparin 5000 units subcutaneously every 8 hours. Discharge plan: Home with [facility] tomorrow
--- NOTE | 2019-09-25 10:58 | P.PN ---
Subjective Progress Note Date: 09/25/19 Principal diagnosis: Acute hypoxic respiratory failure secondary to an acute exacerbation of CHF with systolic dysfunction This is a very pleasant 84-year-old female patient who follows with Dr. Bill as her primary care provider. The patient is known to have coronary artery disease and previous bypass surgery that was done in 2011. 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 This patient was having generalized weakness and frequent falls and was recently found to have a high degree AV block and received a permanent pacemaker implantation and discharged home on 09/19/2019. She was brought back to the emergency room yesterday with increasing weakness and increasing shortness of breath. Chest x-ray revealed evidence of mild congestive heart failure. She was given diuretics and placed on BiPAP overnight. She is seen today in consultation on the selective care unit. Currently awake and alert in no acute distress. She is maintaining good O2 saturations in the mid 90s on 2 L/m per nasal cannula. She's afebrile. Paced rhythm. White count 16.4. Hemoglobin 8.7. D-dimer 10.3. Arterial blood gases are on 50% FiO2 had revealed a PaO2 of 173, pCO2 30, pH 7.39. Creatinine 1.39. Sodium 138. Potassium 5.6. Bicarb 17. Troponin 0.030, 0.038. ProBNP 8850. She has been initiated on IV Lasix. She is also given vancomycin and Levaquin. Pro-calcitonin pending On 09/25/2019 patient seen in follow-up on selective care unit, she is awake and alert, she is resting comfortably in bed, in no acute distress, denies any difficulty breathing, currently on room air pulse ox of 100%, afebrile, blood pressure systolic is 140s to 160s, with diastolic in the 60s. She has been diuresed, she is now on oral Lasix at 40 mg twice daily, patient is incontinent of urine, and her net fluid balance is difficult to estimate, but according to the weight, she is down 0.3 kg in the last 24 hours, no lower extremity edema, lung sounds are clear. Losartan has been placed on hold due to worsening creatinine. Repeat blood work revealed BUN of 42, creatinine of 1.4, hemoglobin of 7.9, white blood cell count is 6.9, d-dimer came back at 10.32 and VQ scan is pending, echocardiogram is pending, coronary was negative, troponins have been 0.029, 0.038, and 0.030. Antibiotic coverage in the form of Levaquin and vancom ycin, pro-calcitonin has been sent and is pending at this time. Objective - Vital Signs Vital signs: Vital Signs Temp 97.9 F 09/25/19 08:45 Pulse 60 09/25/19 08:45 Resp 16 09/25/19 08:45 BP 166/64 09/25/19 08:45 Pulse Ox 100 09/25/19 08:45 Intake & Output 09/24/19 09/25/19 09/25/19 18:59 06:59 18:59 Intake Total 712 Output Total 500 Balance 712 -500 Weight 62.6 kg 62.3 kg Intake: Oral 712 Output: Urine 500 Other: Voiding Method Bedpan Toilet Diaper Diaper Diaper # Voids 2 2 - Exam GENERAL EXAM: Alert, very pleasant, 84-year-old white female, comfortable in no apparent distress. HEAD: Normocephalic/atraumatic. EYES: Normal reaction of pupils, equal size. Conjunctiva pink, sclera white. NOSE: Clear with pink turbinates. THROAT: No erythema or exudates. NECK: No masses, no JVD, no thyroid enlargement, no adenopathy. CHEST: No chest wall deformity. Symmetrical expansion. LUNGS: Equal air entry with no crackles, wheeze, rhonchi or dullness. CVS: Regular rate and rhythm, normal S1 and S2, no gallops, no murmurs, no rubs ABDOMEN: Soft, nontender. No hepatosplenomegaly, normal bowel sounds, no guard ing or rigidity. EXTREMITIES: No clubbing, no edema, no cyanosis, 2+ pulses and upper and lower extremities. MUSCULOSKELETAL: Muscle strength and tone normal. SPINE: No scoliosis or deformity SKIN: No rashes CENTRAL NERVOUS SYSTEM: Alert and oriented -3. No focal deficits, tone is normal in all 4 extremities. PSYCHIATRIC: Alert and oriented -3. Appropriate affect. Intact judgment and insight. - Labs CBC & Chem 7: 09/25/19 06:47 09/25/19 06:47 Labs: Abnormal Lab Results - Last 24 Hours (Table) 09/24/19 09/24/19 09/24/19 Range/Units 10:33 12:02 16:56 RBC (3.80-5.40) m/uL Hgb (11.4-16.0) gm/dL Hct (34.0-46.0) % MCV (80.0-100.0) fL Lymphocytes # (1.0-4.8) k/uL D-Dimer 10.32 H (<0.60) mg/L FEU Chloride (98-107) mmol/L BUN (7-17) mg/dL Creatinine (0.52-1.04) mg/dL Glucose (74-99) mg/dL POC Glucose (mg/dL) 173 H 153 H (75-99) mg/dL Total Protein (6.3-8.2) g/dL Albumin (3.5-5.0) g/dL 09/24/19 09/25/19 09/25/19 Range/Units 21:18 06:30 06:47 RBC (3.80-5.40) m/uL Hgb (11.4-16.0) gm/dL Hct (34.0-46.0) % MCV (80.0-100.0) fL Lymphocytes # (1.0-4.8) k/uL D-Dimer (<0.60) mg/L FEU Chloride 112 H (98-107) mmol/L BUN 42 H (7-17) mg/dL Creatinine 1.40 H (0.52-1.04) mg/dL Glucose 107 H (74-99) mg/dL POC Glucose (mg/dL) 156 H 131 H (75-99) mg/dL Total Protein 5.6 L (6.3-8.2) g/dL Albumin 3.0 L (3.5-5.0) g/dL 09/25/19 Range/Units 06:47 RBC 2.27 L (3.80-5.40) m/uL Hgb 7.9 L (11.4-16.0) gm/dL Hct 24.2 L (34.0-46.0) % MCV 106.5 H (80.0-100.0) fL Lymphocytes # 0.8 L (1.0-4.8) k/uL D-Dimer (<0.60) mg/L FEU Chloride (98-107) mmol/L BUN (7-17) mg/dL Creatinine (0.52-1.04) mg/dL Glucose (74-99) mg/dL POC Glucose (mg/dL) (75-99) mg/dL Total Protein (6.3-8.2) g/dL Albumin (3.5-5.0) g/dL Microbiology - Last 24 Hours (Table) 09/24/19 00:15 Blood Culture - Preliminary Blood No Growth after 24 hours Assessment and Plan Plan: Assessment: 1 Acute hypoxic respiratory failure secondary to an acute exacerbation of systolic congestive heart failure, previous echocardiogram with ejection fraction 45-50%, EKG with RV pacing 2 Recent hospitalization (discharged 09/19/2019) for severe bradycardia secondary to a second degree AV block/third degree AV block. Status post pe rmanent pacemaker implantation. 3 coronary artery disease with previous bypass surgery in 2011 4 valvular heart disease with aortic stenosis and mitral stenosis 5 secondary pulmonary hypertension related to above 6 hypertension with hypertensive heart disease and hypertrophy of the LV 7 chronic stage III kidney disease 8 diabetes mellitus 9 hyperlipidemia 10 chronic anemia, anemia of chronic disease 11 gout 12 acid reflux 13 elevated d-dimer, VQ scan is pending Plan: Continue oral diuretics, elevated d-dimer has been noted, VQ scan is pending. Pro-calcitonin level is pending, continue current antibiotics, although patient is afebrile, no cough or congestion, no phlegm production, no fever or chills. COVID PCR was negative. Anticipate discharge home in the next 24 hours if remains stable I performed a history & physical examination of the patient and discussed their management with my nurse practitioner, Jodie Francis. I reviewed the nurse practitioner's note and agree with the documented findings and plan of care. Lung sounds are positive for diminished breath sounds. The findings and the impression was discussed with the patient. I attest to the documentation by the nurse practitioner. Time with Patient: Less than 30
--- NOTE | 2019-09-25 11:24 | PN ---
PROGRESS NOTE Mrs. Sainz is an 84-year-old female who just received a permanent pacemaker implantation, has a history of aortic valve disease, history of coronary artery bypass grafting, chronic kidney disease, who presented with symptoms of progressive dyspnea and evidence of congestive heart failure. She is feeling much better today. She is more awake and alert. She denies any chest pain. She denies any dizziness or palpitation. She denies any nausea. She continues to be at this time on aspirin once a day, Lipitor 80 mg daily, Coreg 6.5 mg twice a day, furosemide 40 mg IV q.12 hours, hydralazine 100 mg 3 times a day, losartan 25 mg daily, transderm patch. PHYSICAL EXAMINATION: Blood pressure running in the 140s with the heart in 60s. LUNGS: No wheezes or rales. HEART: Regular rate and rhythm, S1, S2. No S3 with systolic murmur heard at the base, ejection type, no diastolic murmur, no rub. ABDOMEN: Soft, nontender. EXTREMITIES: No edema. Pacemaker site is clean. LAB DATA: Reviewed hemoglobin of 7.9 and BUN and creatinine of 42 and 1.4. IMPRESSION: 1. Symptoms of congestive heart failure, improving in a patient with known history of mild to moderate cardiomyopathy and history of aortic stenosis. 2. Status post coronary artery bypass grafting. 3. Recent permanent pacemaker implantation for high-grade AV block. 4. Chronic kidney disease. 5. History of hypertension. 6. Hyperlipidemia. RECOMMENDATION: I will change her diuretic to oral, continue the rest of her medical regimen. Follow her renal function and depending on her progress, further recommendation will be made. MMODL / IJN: [id number] /
[2019-09-25 11:25] LABS: Glucose,Whole Blood 134 mg/dL (75-99)
--- NOTE | 2019-09-25 13:25 | NM ---
EXAMINATION TYPE: NM pul vent and perfuse DATE OF EXAM: 09/25/2019 COMPARISON: Prior nuclear medicine VQ scan September 16, 2017. Prior chest x-ray September 23, 2019. HISTORY: Shortness of breath with elevated d-dimer. TECHNIQUE: Utilizing inhalation of 37.7 mCi Tc 99m DTPA aerosol and intravenous injection of 4.9 mCi of Tc 99m MAA, ventilation and perfusion images are acquired post injection in multiple projections. FINDINGS: Some small peripheral matching defects redemonstrated. There is no evidence of mismatched defects. No significant change from prior nuclear medicine VQ scan. IMPRESSION: Low scintigraphic probability for acute pulmonary embolism.
[2019-09-25] MEDS: NITROGLYCERIN 0.2MG/HR PATCH TRANSDERM SCH (13:33)
[2019-09-25 17:14] LABS: Glucose,Whole Blood 186 mg/dL (75-99)
[2019-09-25 20:56] LABS: Glucose,Whole Blood 132 mg/dL (75-99)
[2019-09-25] MEDS: ATORVASTATIN 80 MG TAB PO SCH (22:03)
[2019-09-25] MEDS: POLYETHYLENE GLYCOL 3350 17 GM POWD.PACK PO SCH (22:03)
[2019-09-25] MEDS: FERROUS SULFATE 325 MG TAB PO SCH (22:04)
[2019-09-25] MEDS: PANTOPRAZOLE 40 MG TABLET PO SCH (22:04)
[2019-09-25] MEDS: CHOLECALCIFEROL 1,000 UNIT TAB PO SCH (22:04)
[2019-09-25] MEDS: CYANOCOBALAMIN 500 MCG TAB PO SCH (22:04)
[2019-09-25] MEDS: LEVOFLOXACIN 250MG-D5W PMX 250 MG in DEXTROSE/WATER 1 50ML.BAG IVPB SCH (22:07)
[2019-09-25] MEDS: VANCOMYCIN 1,250 MG in SODIUM CHLORIDE 0.9% 250 ML IVPB SCH (22:08)
[2019-09-25] MEDS: NON FORMULARY DRUG (Ubidecarenone [Co Q-10] 200 MG) PO SCH (22:17)
[2019-09-26] MEDS ORDERED: diphenhydrAMINE 25 MG CAP PO STA (05:07)
[2019-09-26 06:18] LABS: Glucose,Whole Blood 140 mg/dL (75-99)
[2019-09-26] MEDS: INSULIN ASPART (NovoLOG) 100 UNIT/ML VIAL SQ SCH ×2 (06:45→11:59)
[2019-09-26 06:50] LABS: Basophils % (A) 0 %; Eosinophils # (A) 0.8 k/uL (0-0.7); Eosinophils % (A) 13 %; HCT 23.7 % (34.0-46.0); HGB 7.4 gm/dL (11.4-16.0); Hypochromasia Slight; Lymphocytes # (A) 0.8 k/uL (1.0-4.8); Lymphocytes % (A) 13 %; MCHC 31.3 g/dL (31.0-37.0); MCV 105.2 fL (80.0-100.0); Macrocytosis Moderate; Mean Platelet Volume 9.7; Monocytes # (A) 0.5 k/uL (0-1.0); Monocytes % (A) 8 %; Neutrophils # (A) 4.1 k/uL (1.3-7.7); Neutrophils % (A) 64 %; Platelet Count 244 k/uL (150-450); RBC 2.26 m/uL (3.80-5.40); RDW 14.6 % (11.5-15.5); WBC 6.4 k/uL (3.8-10.6)
[2019-09-26 07:01] LABS: Albumin 2.7 g/dL (3.5-5.0); Calcium 9.1 mg/dL (8.4-10.2); Magnesium 2.1 mg/dL (1.6-2.3); Potassium 4.1 mmol/L (3.5-5.1); Total Bilirubin 0.5 mg/dL (0.2-1.3); Total Protein 5.2 g/dL (6.3-8.2)
[2019-09-26] MEDS: hydrALAZINE HCL 50 MG TAB PO SCH ×2 (07:02→12:10)
[2019-09-26] MEDS: CARVEDILOL 6.25 MG TAB PO SCH (07:02)
[2019-09-26] MEDS: INSULN ASP PRT/INSULIN ASPART 100 UNIT/ML 10 ML VIAL SQ SCH (07:02)
[2019-09-26] MEDS ORDERED: TRIAMCINOLONE ACET 0.1% OINTMENT 15 GM TUBE TOPICAL SCH (09:00)
[2019-09-26] MEDS ORDERED: TRIAMCINOLONE 0.1% CREAM 80 GM TUBE TOPICAL SCH (09:00)
[2019-09-26] MEDS: DOXAZOSIN 4 MG TAB PO SCH (09:12)
[2019-09-26] MEDS: ALLOPURINOL 100 MG TAB PO SCH (09:13)
[2019-09-26] MEDS: FUROSEMIDE 40 MG TAB PO SCH (09:13)
[2019-09-26] MEDS: LORazepam 1 MG TAB PO SCH (09:13)
[2019-09-26] MEDS: ASPIRIN 81 MG PO SCH (09:13)
[2019-09-26] MEDS: HEPARIN SODIUM,PORCINE 5,000 UNIT/ML 1 ML VIAL SQ SCH (09:13)
[2019-09-26] MEDS ORDERED: diphenhydrAMINE 2% CREAM 28.4 GM TUBE TOPICAL SCH (10:00)
--- NOTE | 2019-09-26 10:00 | ECHOF ---
Referral Reason:CHF, assess LV function MEASUREMENTS -------- HEIGHT: 167.6 cm WEIGHT: 62.1 kg BP: 148/68 AV Vmax: 2.68 m/s AV maxP.83 mmHg FINDINGS -------- Sinus rhythm. Limited Study There is severe concentric left ventricular hypertrophy. Overall left ventricular systolic function is mildly impaired with, an EF between 45 - 50 %. Septal wall motion is delayed and consistent wit h prior cardiac surgery. Electronic pacemaker lead seen in the right atrial cavity. There is no pericardial effusion. CONCLUSIONS -------- 1. Sinus rhythm. 2. Limited Study 3. There is severe concentric left ventricular hypertrophy. 4. Overall left ventricular systolic function is mildly impaired with, an EF between 45 - 50 %. 5. Septal wall motion is delayed and consistent with prior cardiac surgery. 6. Electronic pacemaker lead seen in the right atrial cavity. 7. There is no pericardial effusion. RN CHILD: Eboni Mireles RDCS
[2019-09-26 11:11] VITALS: BP 150/69; PULSE 63; RESP 16; TEMP 97.7
--- NOTE | 2019-09-26 11:49 | P.PN ---
Subjective Progress Note Date: 09/26/19 Principal diagnosis: Acute hypoxic respiratory failure secondary to an acute exacerbation of CHF with systolic dysfunction This is a very pleasant 84-year-old female patient who follows with Dr. Bill as her primary care provider. The patient is known to have coronary artery disease and previous bypass surgery that was done in 2011. 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 This patient was having generalized weakness and frequent falls and was recently found to have a high degree AV block and received a permanent pacemaker implantation and discharged home on 09/19/2019. She was brought back to the emergency room yesterday with increasing weakness and increasing shortness of breath. Chest x-ray revealed evidence of mild congestive heart failure. She was given diuretics and placed on BiPAP overnight. She is seen today in consultation on the selective care unit. Currently awake and alert in no acute distress. She is maintaining good O2 saturations in the mid 90s on 2 L/m per nasal cannula. She's afebrile. Paced rhythm. White count 16.4. Hemoglobin 8.7. D-dimer 10.3. Arterial blood gases are on 50% FiO2 had revealed a PaO2 of 173, pCO2 30, pH 7.39. Creatinine 1.39. Sodium 138. Potassium 5.6. Bicarb 17. Troponin 0.030, 0.038. ProBNP 8850. She has been initiated on IV Lasix. She is also given vancomycin and Levaquin. Pro-calcitonin pending On 09/25/2019 patient seen in follow-up on selective care unit, she is awake and alert, she is resting comfortably in bed, in no acute distress, denies any difficulty breathing, currently on room air pulse ox of 100%, afebrile, blood pressure systolic is 140s to 160s, with diastolic in the 60s. She has been diuresed, she is now on oral Lasix at 40 mg twice daily, patient is incontinent of urine, and her net fluid balance is difficult to estimate, but according to the weight, she is down 0.3 kg in the last 24 hours, no lower extremity edema, lung sounds are clear. Losartan has been placed on hold due to worsening creatinine. Repeat blood work revealed BUN of 42, creatinine of 1.4, hemoglobin of 7.9, white blood cell count is 6.9, d-dimer came back at 10.32 and VQ scan is pending, echocardiogram is pending, coronary was negative, troponins have been 0.029, 0.038, and 0.030. Antibiotic coverage in the form of Levaquin and vancom ycin, pro-calcitonin has been sent and is pending at this time. On 09/26/2019 patient seen in follow-up on selective care unit, she is awake and alert, oriented 3, room air pulse ox is 98%, vital signs are stable, no fever or chills. She is on oral Lasix at 40 mg twice daily. She is maintaining negative fluid balance, today's labs have been reviewed, showing white blood cell count of 6.4, hemoglobin of 7.4, sodium is 138, potassium is 4.1, chloride is 112, CO2 is 21, BUN is 40 creatinine is 1.29. We'll calcitonin level was low at 0.06, chloride 19 was not detected, patient denies any chest pain, her breathing is quite comfortable, she is on room air, she has no specific complaints, she is hoping to go home today. From pulmonary perspective patient is clear for discharge home. VQ scan was completed showing low probability for acute pulmonary embolism. Echocardiogram showed mildly impaired LV function with EF of 45-50% Objective - Vital Signs Vital signs: Vital Signs Temp 97.7 F 09/26/19 11:10 Pulse 63 09/26/19 11:10 Resp 16 09/26/19 11:10 BP 150/69 09/26/19 11:10 Pulse Ox 98 09/26/19 11:10 Intake & Output 09/25/19 09/26/19 09/26/19 18:59 06:59 18:59 Intake Total 480 Output Total 750 100 Balance -270 -100 Weight 58.5 kg Intake: Oral 480 Output: Urine 750 100 Other: Voiding Method Diaper Bedside Commode Bedside Commode Diaper Diaper # Voids 2 3 # Bowel Movements 1 - Exam GENERAL EXAM: Alert, very pleasant, 84-year-old white female, on room air, with a pulse ox of 98% comfortable in no apparent distress. HEAD: Normocephalic/atraumatic. EYES: Normal reaction of pupils, equal size. Conjunctiva pink, sclera white. NOSE: Clear with pink turbinates. THROAT: No erythema or exudates. NECK: No masses, no JVD, no thyroid enlargement, no adenopathy. CHEST: No chest wall deformity. Symmetrical expansion. LUNGS: Equal air entry with no crackles, wheeze, rhonchi or dullness. CVS: Regular rate and rhythm, normal S1 and S2, no gallops, no murmurs, no rubs ABDOMEN: Soft, nontender. No hepatosplenomegaly, normal bowel sounds, no guarding or rigidity. EXTREMITIES: No clubbing, no edema, no cyanosis, 2+ pulses and upper and lower extremities. MUSCULOSKELETAL: Muscle strength and tone normal. SPINE: No scoliosis or deformity SKIN: No rashes CENTRAL NERVOUS SYSTEM: Alert and oriented -3. No focal deficits, tone is normal in all 4 extremities. PSYCHIATRIC: Alert and oriented -3. Appropriate affect. Intact judgment and insight. - Labs CBC & Chem 7: 09/26/19 06:07 09/26/19 06:07 Labs: Abnormal Lab Results - Last 24 Hours (Table) 09/25/19 09/25/19 09/26/19 Range/Units 17:13 20:54 06:07 RBC (3.80-5.40) m/uL Hgb (11.4-16.0) gm/dL Hct (34.0-46.0) % MCV (80.0-100.0) fL Lymphocytes # (1.0-4.8) k/uL Eosinophils # (0-0.7) k/uL Chloride 112 H (98-107) mmol/L Carbon Dioxide 21 L (22-30) mmol/L BUN 40 H (7-17) mg/dL Creatinine 1.29 H (0.52-1.04) mg/dL Glucose 124 H (74-99) mg/dL POC Glucose (mg/dL) 186 H 132 H (75-99) mg/dL Total Protein 5.2 L (6.3-8.2) g/dL Albumin 2.7 L (3.5-5.0) g/dL 09/26/19 09/26/19 Range/Units 06:07 06:16 RBC 2.26 L (3.80-5.40) m/uL Hgb 7.4 L (11.4-16.0) gm/dL Hct 23.7 L (34.0-46.0) % MCV 105.2 H (80.0-100.0) fL Lymphocytes # 0.8 L (1.0-4.8) k/uL Eosinophils # 0.8 H (0-0.7) k/uL Chloride (98-107) mmol/L Carbon Dioxide (22-30) mmol/L BUN (7-17) mg/dL Creatinine (0.52-1.04) mg/dL Glucose (74-99) mg/dL POC Glucose (mg/dL) 140 H (75-99) mg/dL Total Protein (6.3-8.2) g/dL Albumin (3.5-5.0) g/dL Microbiology - Last 24 Hours (Table) 09/24/19 00:15 Blood Culture - Preliminary Blood No Growth after 48 hours Assessment and Plan Plan: Assessment: 1 Acute hypoxic respiratory failure secondary to an acute exacerbation of systolic congestive heart failure, previous echocardiogram with ejection f raction 45-50%, EKG with RV pacing 2 Recent hospitalization (discharged 09/19/2019) for severe bradycardia secondary to a second degree AV block/third degree AV block. Status post permanent pacemaker implantation. 3 coronary artery disease with previous bypass surgery in 2011 4 valvular heart disease with aortic stenosis and mitral stenosis 5 secondary pulmonary hypertension related to above 6 hypertension with hypertensive heart disease and hypertrophy of the LV 7 chronic stage III kidney disease 8 diabetes mellitus 9 hyperlipidemia 10 chronic anemia, anemia of chronic disease 11 gout 12 acid reflux 13 elevated d-dimer, VQ scan is pending Plan: Antibiotics have been discontinued, procalcitonin level was low, vital signs are stable, patient is on room air, maintaining stable O2 saturations, breathing is comfortable, VQ scan showed low probability for pulmonary embolism, patient has been transitioned to oral diuretics, she is in negative fluid balance, she's been diuresed, she is breathing easier. From pulmonary perspective she is clear for discharge home today if she has been cleared by cardiology. I performed a history & physical examination of the patient and discussed their management with my nurse practitioner, Jodie Francis. I reviewed the nurse practitioner's note and agree with the documented findings and plan of care. Lung sounds are positive for diminished breath sounds. The findings and the impression was discussed with the patient. I attest to the documentation by the nurse practitioner. Time with Patient: Less than 30
[2019-09-26 11:58] LABS: Glucose,Whole Blood 113 mg/dL (75-99)
[2019-09-26] MEDS: NITROGLYCERIN 0.2MG/HR PATCH TRANSDERM SCH (12:11)
--- NOTE | 2019-09-26 12:13 | P.DS ---
Providers Date of admission: 09/24/19 00:06 Expected date of discharge: 09/26/19 Attending physician: Leela Bill Consults: 09/24/19 00:04 Consult Physician Urgent Consulting Provider: [facility] Consult Reason/Comments: AECHF, recent ppm Do you want consulting provider notified?: Yes 09/24/19 00:05 Consult Physician Urgent Consulting Provider: Lionel Javed Reason/Comments: NIVDRF Do you want consulting provider notified?: Yes Primary care physician: Leela Bill Hospital Course: This is an 84-year-old female patient of rae and Dr. Diana with past medical history of coronary artery disease status post CABG in 2011 followed by myocardial infarction, chronic systolic heart failure, chronic kidney disease stage III, diabetes mellitus type 2 insulin requiring, hyperlipidemia, hypertension, cervical stenosis, chronic back pain. Patient was recently hospitalized at [facility] from 09/13/2019 total 09/19/2019 after she was admitted because of a fall that was related to sick sinus syndrome with the third degree AV block ended up going for a permanent pacemaker placement that was done successfully and the patient was discharged home after she developed to have a significant accelerated hypertension with adjustment of a lot of her medication, patient underwent echocardiogram and the last hospital admission that showed a minimal LV dysfunction with an ejection fraction of 45- 50%, patient was sent home and she has been complaining of increased shortness breath as well as increased tiredness and she was brought into the ER at [facility] yesterday because of increased shortness breath she was initially placed on a BiPAP due to her hypoxemic respiratory failure and that she was given IV diuretics after her chest x-ray showed pulmonary vascular congestion with small bilateral pleural effusion, patient was admitted to the hospital for evaluation by pulmonary as well as by cardiology she was started on IV antibiotic and IV Lasix. 09/24: Patient is seen today in the cardiac stepdown unit. She has been evaluated by both pulmonary medicine and cardiology. Patient does show improvement after diuretics. Patient has been hemodynamically stable with heart rate in the 60s, blood pressure 166/64, pulse ox 100% on room air, afebrile. Due to worsening creatinine, losartan discontinued. IV Lasix changed to oral 40 mg twice daily. Repeat blood work reveals BUN 42, creatinine 1.4, hemoglobin 7.9. WBCs normalized to 6.9. D-dimer came back at 10.32 and VQ scan has been ordered by cardiology. Echocardiogram ordered. Troponins have been 0.029, 0.038, 0.030. Coronavirus not detected. 09/25: VQ scan low probability for pulmonary embolism. Echocardiogram reveals severe concentric left ventricular hypertrophy, EF 45-50%. She has been afebrile, heart rate 63, blood pressure 150/69, pulse ox 90% on room air. hospital monitor has been a paced rhythm. Repeat blood work reveals hemoglobin 7.4, BUN 14 creatinine 1.29. Patient developed a rash yesterday thought to be related to antibiotics. Antibiotics will be discontinued. Patient received 1 dose of Benadryl with improvement. Kenalog cream was ordered but not given because nurse was concerned about ALLERGY to cortisone. Benadryl cream ordered as needed for home but rash is improved. Patient has been seen by cardiology and pulmonary medicine cleared for discharge. Patient will be discharged home today in stable condition. Discharge diagnosis: 1. Acute hypoxemic respiratory failure due to acute systolic heart failure. 2. Third degree AV block status post permanent pacemaker placement. 3. Left-sided pleural effusion with possible healthcare associated pneumonia. 4. Valvular heart disease in the form of severe aortic stenosis and moderate to severe tricuspid regurgitation with severe pulmonary hypertension. 5. Hypertension and hypertensive cardiovascular disease. 6. History of coronary artery disease status post CABG in 2011. 7. Hyperlipidemia. 8. Diabetes mellitus type 2. 9. Anemia of chronic disease. 10. Gout, chronic. 11. Generalized anxiety disorder. 12. COVID-19 infection not present. Patient Condition at Discharge: Stable Plan - Discharge Summary New Discharge Prescriptions: New diphenhydrAMINE & Zinc Cream [Benadryl Cream] 1 applic TOPICAL BID applic Furosemide [Lasix] 40 mg PO BID #60 tab Continue Omeprazole 40 mg PO HS Aspirin 162 mg PO DAILY@0800 Allopurinol 100 mg PO DAILY Nitroglycerin 0.2MG/Hr Patch [Nitro-Dur 0.2MG/Hr Patch] 1 patch TRANSDERM Q24H PRN PRN Reason: Chest Pain Ferrous Sulfate [Feosol] 325 mg PO HS Cholecalciferol [Vitamin D3 (25 Mcg = 1000 Iu)] 2,000 unit PO HS Ascorbic Acid [Vitamin C] 500 mg PO DAILY@0800 Atorvastatin [Lipitor] 80 mg PO HS hydrALAZINE HCL [Apresoline] 100 mg PO TID-W/MEALS Ubidecarenone [Co Q-10] 200 mg PO HS Cyanocobalamin [Vitamin B-12] 500 mcg PO HS Doxazosin [Cardura] 4 mg PO DAILY LORazepam [Ativan] 1 - 2 mg PO HS PRN PRN Reason: Insomnia Insulin NPL/Insulin Lispro [humaLOG MIX 75-25 VIAL] 5 - 15 unit SQ AC-TID Carvedilol [Coreg] 6.25 mg PO BID-W/MEALS #60 tab Polyethylene Glycol 3350 [Miralax] 17 gm PO HS #0 powd.pack Sennosides-Docusate Sodium [Senokot-S] 1 each PO DAILY PRN tab PRN Reason: Constipation Discontinued NIFEdipine XL [Procardia XL] 90 mg PO DAILY Triamterene-Hctz 37.5-25Mg [Dyazide 37.5-25 Capsule] 1 each PO DAILY #30 cap Discharge Medication List Allopurinol 100 mg PO DAILY 03/05/14 [History] Aspirin 162 mg PO DAILY@0800 03/05/14 [History] Omeprazole 40 mg PO HS 03/05/14 [History] Ascorbic Acid [Vitamin C] 500 mg PO DAILY@0800 09/24/14 [History] Atorvastatin [Lipitor] 80 mg PO HS 09/24/14 [History] Cholecalciferol [Vitamin D3 (25 Mcg = 1000 Iu)] 2,000 unit PO HS 09/24/14 [History] Ferrous Sulfate [Feosol] 325 mg PO HS 09/24/14 [History] Nitroglycerin 0.2MG/Hr Patch [Nitro-Dur 0.2MG/Hr Patch] 1 patch TRANSDERM Q24H PRN 09/24/14 [History] hydrALAZINE HCL [Apresoline] 100 mg PO TID-W/MEALS 07/04/17 [History] Cyanocobalamin [Vitamin B-12] 500 mcg PO HS 04/13/18 [History] Ubidecarenone [Co Q-10] 200 mg PO HS 04/13/18 [History] Doxazosin [Cardura] 4 mg PO DAILY 12/10/18 [History] Insulin NPL/Insulin Lispro [humaLOG MIX 75-25 VIAL] 5 - 15 unit SQ AC-TID 09/13/19 [History] LORazepam [Ativan] 1 - 2 mg PO HS PRN 09/13/19 [History] Carvedilol [Coreg] 6.25 mg PO BID-W/MEALS #60 tab 09/19/19 [Rx] Polyethylene Glycol 3350 [Miralax] 17 gm PO HS #0 powd.pack 09/19/19 [Rx] Sennosides-Docusate Sodium [Senokot-S] 1 each PO DAILY PRN tab 09/19/19 [Rx] Furosemide [Lasix] 40 mg PO BID #60 tab 09/26/19 [Rx] diphenhydrAMINE & Zinc Cream [Benadryl Cream] 1 applic TOPICAL BID applic 09/26/19 [Rx] Follow up Appointment(s)/Referral(s): Demetrius Diana MD [STAFF PHYSICIAN] - 10/05/19 3:15 pm () [facility] Visiting Nurse, [NON-STAFF] - Leela Bill MD [Primary Care Provider] - 09/28/19 (Patient has an already scheduled appointment on the . ) Patient Instructions/Handouts: Heart Failure (DC)
--- NOTE | 2019-09-26 13:36 | P.PN ---
Subjective Progress Note Date: 09/26/19 This is a very pleasant 84-year-old female patient who follows with Dr. Bill as her primary care provider. The patient is known to have coronary artery disease and previous bypass surgery that was done in 2011. 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 This patient was having generalized weakness and frequent falls and was recently found to have a high degree AV block and received a permanent pacemaker implantation and discharged home on 09/19/2019. She was brought back to the emergency room with increasing weakness and increasing shortness of breath. Patient was seen and examined this morning, alert and oriented, hemodynamically stable. Currently on oral diuretics. Maintaining a negative fluid balance. White blood cell count 6.4, hemoglobin 7.4, sodium 138, potassium 4.1, chloride 112, CO2 21, BUN 40, creatinine 1.2. Anticipating a possible discharge home today. Her VQ scan was completed showing low probability for an acute pulmonary embolism. Echocardiogram with Doppler study revealed mildly impaired LV function with an ejection fraction of 45-50%. Objective - Vital Signs Vital signs: Vital Signs Temp 97.7 F 09/26/19 11:10 Pulse 63 09/26/19 11:10 Resp 16 09/26/19 11:10 BP 150/69 09/26/19 11:10 Pulse Ox 98 09/26/19 11:10 Intake & Output 09/25/19 09/26/19 09/26/19 18:59 06:59 18:59 Intake Total 480 300 Output Total 750 100 Balance -270 -100 300 Weight 58.5 kg Intake: Oral 480 300 Output: Urine 750 100 Other: Voiding Method Diaper Bedside Commode Bedside Commode Diaper Diaper # Voids 2 1 # Bowel Movements 1 1 - Exam GENERAL EXAM: Alert, very pleasant, 84-year-old white female, on room air, with a pulse ox of 98% comfortable in no apparent distress. HEAD: Normocephalic/atraumatic. EYES: Normal reaction of pupils, equal size. Conjunctiva pink, sclera white. NOSE: Clear with pink turbinates. THROAT: No erythema or exudates. NECK: No masses, no JVD, no thyroid enlargement, no adenopathy. CHEST: No chest wall deformity. Symmetrical expansion. LUNGS: Equal air entry with no crackles, wheeze, rhonchi or dullness. CVS: Regular rate and rhythm, normal S1 and S2, no gallops, no murmurs, no rubs ABDOMEN: Soft, nontender. No hepatosplenomegaly, normal bowel sounds, no guarding or rigidity. EXTREMITIES: No clubbing, no edema, no cyanosis, 2+ pulses and upper and lower extremities. MUSCULOSKELETAL: Muscle strength and tone normal. SPINE: No scoliosis or deformity SKIN: No rashes CENTRAL NERVOUS SYSTEM: Alert and oriented -3. No focal deficits, tone is normal in all 4 extremities. PSYCHIATRIC: Alert and oriented -3. Appropriate affect. Intact judgment and insight. - Labs CBC & Chem 7: 09/26/19 06:07 09/26/19 06:07 Labs: Abnormal Lab Results - Last 24 Hours (Table) 09/25/19 09/25/19 09/26/19 Range/Units 17:13 20:54 06:07 RBC (3.80-5.40) m/uL Hgb (11.4-16.0) gm/dL Hct (34.0-46.0) % MCV (80.0-100.0) fL Lymphocytes # (1.0-4.8) k/uL Eosinophils # (0-0.7) k/uL Chloride 112 H (98-107) mmol/L Carbon Dioxide 21 L (22-30) mmol/L BUN 40 H (7-17) mg/dL Creatinine 1.29 H (0.52-1.04) mg/dL Glucose 124 H (74-99) mg/dL POC Glucose (mg/dL) 186 H 132 H (75-99) mg/dL Total Protein 5.2 L (6.3-8.2) g/dL Albumin 2.7 L (3.5-5.0) g/dL 09/26/19 09/26/19 09/26/19 Range/Units 06:07 06:16 11:56 RBC 2.26 L (3.80-5.40) m/uL Hgb 7.4 L (11.4-16.0) gm/dL Hct 23.7 L (34.0-46.0) % MCV 105.2 H (80.0-100.0) fL Lymphocytes # 0.8 L (1.0-4.8) k/uL Eosinophils # 0.8 H (0-0.7) k/uL Chloride (98-107) mmol/L Carbon Dioxide (22-30) mmol/L BUN (7-17) mg/dL Creatinine (0.52-1.04) mg/dL Glucose (74-99) mg/dL POC Glucose (mg/dL) 140 H 113 H (75-99) mg/dL Total Protein (6.3-8.2) g/dL Albumin (3.5-5.0) g/dL Microbiology - Last 24 Hours (Table) 09/24/19 00:15 Blood Culture - Preliminary Blood No Growth after 48 hours Assessment and Plan Plan: Assessment and plan 1 Acute hypoxic respiratory failure secondary to an acute exacerbation of systolic congestive heart failure, previous echocardiogram with ejection fraction 45-50% 2 Recent hospitalization (discharged 09/19/2019) for severe bradycardia secondary to a second degree AV block/third degree AV block. Status post permanent pacemaker implantation. 3 coronary artery disease with previous bypass surgery in 2011 4 valvular heart disease with aortic stenosis and mitral stenosis 5 secondary pulmonary hypertension related to above 6 hypertension with hypertensive heart disease and hypertrophy of the LV 7 chronic stage III kidney disease 8 diabetes mellitus 9 hyperlipidemia 10 chronic anemia, anemia of chronic disease 11 gout 12 acid reflux 13 elevated d-dimer, VQ scan low probability for pulmonary embolism Plan Patient may be able to be discharged home today from our perspective, we'll make her a follow-up appointment to see Dr. Diana in the office post discharge. DNP note has been reviewed, I agree with a documented findings and plan of care. Patient was seen and examined.
== END 2019-09-26 13:27 | disposition home health service (06) | DRG 291 ==
LOC: EC 20:44 → 3SCARD 09-24 00:06
PROVIDERS: ADMIT Internal Medicine; ATTEND Internal Medicine
PROC: 5A09457 Assistance with Respiratory Ventilation, 24-96 Consecutive Hours, Continuous Positive Airway Pressure (ICD-10-PCS; principal; 2019-09-23)
DX: I13.0 Hypertensive heart and chronic kidney disease with heart failure and stage 1 through stage 4 chronic kidney disease, or unspecified chronic kidney disease (principal); I50.23 Acute on chronic systolic (congestive) heart failure; J96.01 Acute respiratory failure with hypoxia; J18.9 Pneumonia, unspecified organism; I44.2 Atrioventricular block, complete; I27.29 Other secondary pulmonary hypertension; I49.5 Sick sinus syndrome; D63.1 Anemia in chronic kidney disease; I42.9 Cardiomyopathy, unspecified; N18.3 Chronic kidney disease, stage 3 (moderate); E11.22 Type 2 diabetes mellitus with diabetic chronic kidney disease; F03.90 Unspecified dementia, unspecified severity, without behavioral disturbance, psychotic disturbance, mood disturbance, and anxiety; Z79.4 Long term (current) use of insulin; Z20.828 Contact with and (suspected) exposure to other viral communicable diseases; Y95 Nosocomial condition; I08.3 Combined rheumatic disorders of mitral, aortic and tricuspid valves; I25.10 Atherosclerotic heart disease of native coronary artery without angina pectoris; K21.9 Gastro-esophageal reflux disease without esophagitis; E78.5 Hyperlipidemia, unspecified; M1A.9XX0 Chronic gout, unspecified, without tophus (tophi); F41.1 Generalized anxiety disorder; M48.02 Spinal stenosis, cervical region; G89.29 Other chronic pain; M54.9 Dorsalgia, unspecified; R29.6 Repeated falls; N39.46 Mixed incontinence; L27.1 Localized skin eruption due to drugs and medicaments taken internally; T36.95XA Adverse effect of unspecified systemic antibiotic, initial encounter; M19.90 Unspecified osteoarthritis, unspecified site; I25.2 Old myocardial infarction; Z79.82 Long term (current) use of aspirin; Z79.899 Other long term (current) drug therapy; Z95.1 Presence of aortocoronary bypass graft; Z95.0 Presence of cardiac pacemaker; Z90.49 Acquired absence of other specified parts of digestive tract; Z90.710 Acquired absence of both cervix and uterus; Z98.890 Other specified postprocedural states; Z88.5 Allergy status to narcotic agent; Z88.0 Allergy status to penicillin; Z88.8 Allergy status to other drugs, medicaments and biological substances; Z83.3 Family history of diabetes mellitus; Z82.0 Family history of epilepsy and other diseases of the nervous system; Z80.3 Family history of malignant neoplasm of breast; Z82.49 Family history of ischemic heart disease and other diseases of the circulatory system; Z81.1 Family history of alcohol abuse and dependence; Z84.1 Family history of disorders of kidney and ureter; Z83.79 Family history of other diseases of the digestive system
CPT/HCPCS: 36415; 36600; 71045; 78582; 80053; 82550; 82565; 82805; 83605; 83735; 83880; 84145; 84484; 85025; 85379; 85610; 85730; 87040; 93005; 93308; 94660; 96374; 99285

== ENCOUNTER → 2019-12-11 | Outpatient (CLI) | payer MEDICARE ==
--- NOTE | 2019-12-11 16:54 | US ---
EXAMINATION TYPE: US kidneys/renal and bladder DATE OF EXAM: 12/11/2019 COMPARISON: US 2012 CLINICAL HISTORY: N17.9 RALPH. RALPH EXAM MEASUREMENTS: Right Kidney: 11.1 x 3.7 x 4.1 cm Left Kidney: 9.7 x 5.3 x 4.3 cm Right Kidney: fullness of renal pelvis Left Kidney: mild hydronephrosis Bladder: wnl Bilateral Jets seen: yes IMPRESSION: 1. There may be some minimal bilateral hydronephrosis. No suspicious etiology for this however is riddhi dent.
== END | disposition home or self-care (01) ==
LOC: RADUSWWP 09:17
PROVIDERS: ATTEND Internal Medicine
DX: N17.9 Acute kidney failure, unspecified (principal)
CPT/HCPCS: 76770

== ENCOUNTER → 2020-01-03 | Outpatient (CLI) | payer MEDICARE ==
--- NOTE | 2020-01-04 11:32 | MM ---
Reason for exam: clinical finding. Last mammogram was performed 8 months ago. History: Patient is postmenopausal and is nulliparous. Family history of breast cancer in mother at age 69. Physical Findings: Nurse did not find any significant physical abnormalities on exam. MG 3D Diag Mammo W/Cad NERI Bilateral CC and MLO view(s) were taken. Prior study comparison: April 27, 2019, bilateral MG 3d screening mammo w/cad. January 15, 2015, mammogram, performed at [facility]. The breast tissue is heterogeneously dense. This may lower the sensitivity of mammography. Skin thickening left breast correlate for inflammatory cancer versus infection. Recommend surgical consult. These results were verbally communicated with the patient and result sheet given to the patient on 01/03/20. ASSESSMENT: Incomplete: need additional imaging evaluation, BI-RAD 0 RECOMMENDATION: Ultrasound of the left breast. Manage patient on a clinical basis.
--- NOTE | 2020-01-04 11:34 | USB ---
Reason for exam: additional evaluation requested from abnormal screening. History: Patient is postmenopausal and is nulliparous. Family history of breast cancer in mother at age 69. US Breast LT Left complete breast ultrasound includes all four quadrants, the retroareolar region and axilla. Finding demonstrates a 0.4 x 0.4 x 0.2cm oval, hypoechoic lesion at 2 o'clock and a 1.2 x 1.2 x 0.5cm oval lymph node at the axilla. Inflammatory cancer versus infection. These results were verbally communicated with the patient and result sheet given to the patient on 01/03/20. ASSESSMENT: Suspicious, BI-RAD 4 RECOMMENDATION: Surgical consultation of the left breast. Called Dr. Bill's office with mammographic findings and has scheduled an appointment for the patient for 01/15/20 at 11:[address] Perez. PRELIMINARY REPORT CALLED AND FAXED TO DR. PEREZ ON 01/04/20. Ultrasound of the left breast in 3 months.
== END | disposition home or self-care (01) ==
LOC: RADMAMWWP 14:40
PROVIDERS: ATTEND Internal Medicine
DX: N63.20 Unspecified lump in the left breast, unspecified quadrant (principal); R92.8 Other abnormal and inconclusive findings on diagnostic imaging of breast
CPT/HCPCS: 77066; 76641; G0279; 77062

== ENCOUNTER 2021-01-01 15:36 | Inpatient (IN) | payer MEDICARE ==
[2021-01-01] MEDS ORDERED: HYDROmorphone 0.5 MG/0.5 ML SYRINGE IVP STA (16:15)
--- NOTE | 2021-01-01 16:20 | ED ---
General Adult HPI - General Chief complaint: Fall Stated complaint: fall, hip injury Time Seen by Provider: 01/01/21 15:44 Source: patient, family, EMS, RN notes reviewed Mode of arrival: EMS Limitations: no limitations - History of Present Illness Initial comments: Patient is a pleasant 85-year-old female presenting to the emergency department following a fall. Patient complains of right hip pain. Discomfort is mild but severe with movement. Patient states she was going to get her hair done and did a curtsey when she walked to the door. Patient fell on her bottom. Patient has discomfort mostly of the right hip. Patient states she did lightly bump her head however has no discomfort. Patient believes that she is not on blood thinners however believes that she is on Eliquis. No neck pain. Patient does have some left knee pain. Patient did receive morphine by EMS in route. - Related Data Home Medications Medication Instructions Recorded Confirmed Allopurinol 100 mg PO BID 03/05/14 01/01/21 Atorvastatin [Lipitor] 80 mg PO HS 09/24/14 01/01/21 Doxazosin [Cardura] 4 mg PO DAILY 12/10/18 01/01/21 Apixaban [Eliquis] 2.5 mg PO BID 01/01/21 01/01/21 Dapagliflozin Propanediol [Farxiga] 5 mg PO DAILY 01/01/21 01/01/21 Dicyclomine [Bentyl] 10 mg PO TID-W/MEALS 01/01/21 01/01/21 Insulin NPL/Insulin Lispro 30 unit SQ AC-TID 01/01/21 01/01/21 [humaLOG MIX 75-25 VIAL] Nitroglycerin Sl Tabs [Nitrostat] 0.4 mg SUBLINGUAL Q5M PRN 01/01/21 01/01/21 Previous Rx's Medication Instructions Recorded carvediloL [Coreg] 6.25 mg PO BID-W/MEALS #60 tab 09/19/19 Furosemide [Lasix] 40 mg PO BID #60 tab 09/26/19 Allergies Allergy/AdvReac Type Severity Reaction Status Date / Time cortisone Allergy Rash/Hives Verified 01/01/21 17:21 morphine Allergy Unknown Verified 01/01/21 17:21 Penicillins Allergy Rash/Hives Verified 01/01/21 17:21 Review of Systems ROS Statement: Those systems with pertinent positive or pertinent negative responses have been documented in the HPI. ROS Other: All systems not noted in ROS Statement are negative. Constitutional: Denies: fever Eyes: Denies: eye pain ENT: Denies: ear pain Respiratory: Denies: cough Cardiovascular: Denies: chest pain Endocrine: Denies: fatigue Gastrointestinal: Denies: abdominal pain Genitourinary: Denies: dysuria Musculoskeletal: Reports: as per HPI. Denies: back pain Skin: Denies: rash Neurological: Denies: headache, weakness, confusion Past Medical History Past Medical History: Coronary Artery Disease (CAD), Heart Failure, Diabetes Mellitus, GERD/Reflux, Hyperlipidemia, Hypertension, Myocardial Infarction (RI), Osteoarthritis (OA), Renal Disease Additional Past Medical History / Comment(s): History of valvular heart disease with aortic stenosis, moderate mitral regurgitation stenosis, coronary artery disease with previous RI and previous bypass surgery, chronic anemia, chronic osteoarthritis and neck pain, diabetes mellitus, hypertension and hyperlipidemia, 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 Last Myocardial Infarction Date:: 2011 History of Any Multi-Drug Resistant Organisms: None Reported Past Surgical History: Cholecystectomy, Coronary Bypass/CABG, Hysterectomy Additional Past Surgical History / Comment(s): 8x D&C, CABG 7 Blockages, bilateral foot surgery to remove tumors Past Anesthesia/Blood Transfusion Reactions: No Reported Reaction Type of Cardiac Device: Permanent Pacemaker Device Placement Date:: 09/15/19 Past Psychological History: No Psychological Hx Reported Past Alcohol Use History: Occasional Past Drug Use History: None Reported - Past Family History Mother Family Medical History: Cancer, Diabetes Mellitus Additional Family Medical History / Comment(s): Mother at age 84 from Alzheimer's, old age. No coronary artery disease, no diabetes, history of breast cancer. Father Family Medical History: Congestive Heart Failure (CHF) Additional Family Medical History / Comment(s): Father in his early 80s from diabetes, occasions. No coronary artery disease. Brother(s) Family Medical History: Cancer (Patient is lives with her , functionally active denies any need a walker or assistance) Additional Family Medical History / Comment(s): Patient had total of 4 brothers. One at 69 from alcohol abuse. One at age 8 from kidney failure, a third brother has of unknown cause. One brother is alive at age 75 with no major medical problems. Sister(s) Additional Family Medical History / Comment(s): Patient has one sister with Crohn's 1 with irritable bowel syndrome. Patient does not have any children. General Exam Limitations: no limitations General appearance: alert, in no apparent distress Head exam: Present: atraumatic, normocephalic Eye exam: Present: normal appearance, PERRL, EOMI Neck exam: Present: normal inspection. Absent: tenderness Respiratory exam: Present: normal lung sounds bilaterally Cardiovascular Exam: Present: regular rate, normal rhythm Expanded Peripheral pulses: 2+: Dorsalis Pedis (R), Dorsalis Pedis (L) GI/Abdominal exam: Present: soft. Absent: tenderness Extremities exam: Present: tenderness (Moderate tenderness right anterior and oral hip. Mild tenderness left anterior medial knee.) Back exam: Present: normal inspection Neurological exam: Present: alert. Absent: motor sensory deficit Psychiatric exam: Present: normal affect, normal mood Skin exam: Present: normal color Course Vital Signs 01/01/21 15:45 Temperature 97.0 F L Pulse Rate 67 Respiratory 18 Rate Blood Pressure 162/59 O2 Sat by Pulse 97 Oximetry Medical Decision Making - Medical Decision Making Patient and family updated. Case discussed with Dr. Conroy, who will admit for orthopedic call. Case also discussed with Dr. Bill. He is unclear whether or not patient is on Eliquis. He will review that tomorrow. He would like cardiology consult secondary to history of aortic stenosis. - Radiology Data Radiology results: image reviewed Disposition Clinical Impression: Fall, Fracture, intertrochanteric, right femur Disposition: ADMITTED IP TO THIS [facility] Is patient prescribed a controlled substance at d/c from ED?: No Referrals: Leela Bill MD [Primary Care Provider] - 1-2 days Decision Time: 17:37
--- NOTE | 2021-01-01 17:37 | CT ---
EXAMINATION TYPE: CT brain cspine wo con DATE OF EXAM: 01/01/2021 COMPARISON: CT angiogram head and neck July 04, 2017 HISTORY: Fall CT DLP: 1334.3 mGycm Automated exposure control for dose reduction was used. TECHNIQUE: CT scan of the head and cervical spine are performed without contrast. FINDINGS: There is no acute intracranial hemorrhage, mass effect, or midline shift identified. The ventricles and sulci are within normal limits in size. The globes are intact and the visualized sin uses are clear. Cervical spine is visualized in its entirety from C1 through upper thoracic levels and demonstrates s atisfactory alignment without evidence of acute fracture or dislocation. Prevertebral soft tissue ap pears within normal limits. The C1-C2 articulation is unremarkable. 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 IMPRESSION: 1. There is no acute fracture or dislocation evident in the cervical spine. 2. No acute intracranial hemorrhage, mass effect, or midline shift is seen.
[2021-01-01] MEDS ORDERED: NALOXONE 0.4 MG/ML 1 ML VIAL IV PRN (17:38)
[2021-01-01] MEDS ORDERED: ONDANSETRON 4 MG/2 ML VIAL IVP PRN (17:38)
--- NOTE | 2021-01-01 17:42 | XR ---
EXAMINATION TYPE: XR chest 1V DATE OF EXAM: 01/01/2021 COMPARISON: Chest radiograph September 23, 2019 HISTORY: Fall. Hip fracture. TECHNIQUE: Single frontal view of the chest is obtained. FINDINGS: Left chest wall AICD with lead tips overlying the right atrium and right ventricle. Median sternotomy wires second wire from superior is fractured similar to prior. Best The heart is enlarged, stable. Pulmonary vasculature is within normal limits. Bronchial cuffing over the left hemithorax. No consolidation, sizable effusion or pneumothorax. IMPRESSION: Stable cardiomegaly. No consolidation, effusion or pneumothorax. Bronchial cuffing over the left upper hemithorax component of hiatal/reactive small airways disease.
--- NOTE | 2021-01-01 17:46 | XR ---
EXAMINATION TYPE: XR femur RT, XR Hip RT and AP Pelvis DATE OF EXAM: 01/01/2021 CLINICAL HISTORY: Fall TECHNIQUE: Two views of the right femur, AP view of the pelvis and 2 views of the right hip are obta ined. COMPARISON: None FINDINGS: There is a comminuted right intertrochanteric fracture. Vascular calcifications. Surgical clips over the right thigh. IMPRESSION: There is a comminuted, mildly displaced right intertrochanteric fracture.
--- NOTE | 2021-01-01 18:08 | CT ---
EXAMINATION TYPE: CT hip RT wok con DATE OF EXAM: 01/01/2021 COMPARISON: Same day radiograph. HISTORY: Fall, c.o right hip pain CT DLP: 336.1 mGycm Automated exposure control for dose reduction was used. FINDINGS: There is a comminuted right intertrochanteric fracture. IMPRESSION: THERE IS A COMMINUTED AND MILDLY DISPLACED RIGHT INTERTROCHANTERIC FRACTURE.
[2021-01-01] MEDS: HYDROmorphone 1 MG/ML 1 ML SYRINGE IVP PRN ×2 (18:34→21:05)
[2021-01-01 18:37] LABS: Basophils % (A) 0 %; Eosinophils # (A) 0.3 k/uL (0-0.7); Eosinophils % (A) 3 %; HCT 33.4 % (34.0-46.0); HGB 10.9 gm/dL (11.4-16.0); Lymphocytes # (A) 1.1 k/uL (1.0-4.8); Lymphocytes % (A) 9 %; MCH 33.6 pg (25.0-35.0); MCHC 32.6 g/dL (31.0-37.0); Macrocytosis Slight; Mean Platelet Volume 9.3; Monocytes # (A) 0.5 k/uL (0-1.0); Monocytes % (A) 5 %; Neutrophils # (A) 9.7 k/uL (1.3-7.7); Neutrophils % (A) 82 %; Platelet Count 112 k/uL (150-450); RBC 3.24 m/uL (3.80-5.40); RDW 14.7 % (11.5-15.5); WBC 11.7 k/uL (3.8-10.6)
[2021-01-01 18:43] LABS: Albumin 3.7 g/dL (3.5-5.0); Calcium 9.6 mg/dL (8.4-10.2); Potassium 3.7 mmol/L (3.5-5.1); Total Bilirubin 0.7 mg/dL (0.2-1.3); Total Protein 6.3 g/dL (6.3-8.2)
[2021-01-01 18:53] LABS: INR 0.9 (<1.2); Prothrombin Time 9.9 sec (9.0-12.0)
[2021-01-01 19:07] LABS: Partial Thromboplastin Time 16.7 sec (22.0-30.0)
[2021-01-01] MEDS: SODIUM CHLORIDE 0.9% 1,000 ML IV SCH (19:56)
[2021-01-02] MEDS: HYDROmorphone 0.5 MG/0.5 ML SYRINGE IVP PRN ×2 (03:23→22:31)
[2021-01-02] MEDS: SODIUM CHLORIDE 0.9% 1,000 ML IV SCH ×3 (07:21→17:47)
[2021-01-02] MEDS: HYDROmorphone 1 MG/ML 1 ML SYRINGE IVP PRN ×2 (07:29→11:04)
[2021-01-02] MEDS: PANTOPRAZOLE 40 MG/10 ML VIAL IV SCH (09:39)
--- NOTE | 2021-01-02 09:55 | P.HPOR ---
<Shaylee Zendejas K - Last Filed: 01/02/21 09:52> History of Present Illness H&P Date: 01/02/21 This patient is an 85-year-old female with past medical history of coronary artery disease with previous bypass surgery, hypertension, chronic kidney disease, diabetes, hypertension, hyperlipidemia that presented to [facility] emergency department on 01/01/21 with complaints of right hip pain following a fall. The patient states she was at the salon. She states her shoes were wet due to the rain. She states she slipped and fell directly into the right hip. EMS was called and the patient was transported to [facility] emergency department. X-rays of the right hip in the emergency department revealed a right IT fracture. CT of the brain showed no acute findings. Patient was admitted under the care of Dr. Conroy consult placed to internal medicine for medical management. At the time of my exam, the patient is complaining of isolated right hip pain. She states she did not sustain any other injuries she isn't experiencing pain in his right hip. She states she does take a blood thinner and she is unsure which blood thinner it is. Per chart review, she takes Eliquis. She has no additional complaints or concerns at this time. Vital signs stable. 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 She is independent. She uses a walker for ambulation. Smoking Status: Never smoker Past Alcohol Use History: Occasional Additional Past Alcohol Use History / Comment(s): Patient is and lives with her . Past Drug Use History: None Reported - Past Family History Mother Family Medical History: Cancer, Diabetes Mellitus Additional Family Medical History / Comment(s): Mother at age 84 from Alz heimer's, old age. No coronary artery disease, no diabetes, history of breast cancer. Father Family Medical History: Congestive Heart Failure (CHF) Additional Family Medical History / Comment(s): Father in his early 80s from diabetes, occasions. No coronary artery disease. Brother(s) Family Medical History: Cancer (Patient is lives with her , functionally active denies any need a walker or assistance) Additional Family Medical History / Comment(s): Patient had total of 4 brothers. One at 69 from alcohol abuse. One at age 8 from kidney failure, a th ird brother has of unknown cause. One brother is alive at age 75 with no major medical problems. Sister(s) Additional Family Medical History / Comment(s): Patient has one sister with Crohn's 1 with irritable bowel syndrome. Patient does not have any children. Medications and Allergies Home Medications Medication Instructions Recorded Confirmed Type Allopurinol 100 mg PO BID 03/05/14 01/01/21 History Atorvastatin [Lipitor] 80 mg PO HS 09/24/14 01/01/21 History Doxazosin [Cardura] 4 mg PO DAILY 12/10/18 01/01/21 History carvediloL [Coreg] 6.25 mg PO BID-W/MEALS #60 tab 09/19/19 01/01/21 Rx Furosemide [Lasix] 40 mg PO BID #60 tab 09/26/19 01/01/21 Rx Apixaban [Eliquis] 2.5 mg PO BID 01/01/21 01/01/21 History Dapagliflozin Propanediol [Farxiga] 5 mg PO DAILY 01/01/21 01/01/21 History Dicyclomine [Bentyl] 10 mg PO TID-W/MEALS 01/01/21 01/01/21 History Insulin NPL/Insulin Lispro 30 unit SQ AC-TID 01/01/21 01/01/21 History [humaLOG MIX 75-25 VIAL] Nitroglycerin Sl Tabs [Nitrostat] 0.4 mg SUBLINGUAL Q5M PRN 01/01/21 01/01/21 History Allergies Allergy/AdvReac Type Severity Reaction Status Date / Time cortisone Allergy Rash/Hives Verified 01/01/21 17:21 morphine Allergy Unknown Verified 01/01/21 17:21 Penicillins Allergy Rash/Hives Verified 01/01/21 17:21 Physical Examination On examination, the patient is lying better apparent distress. She is alert and oriented 3. Her is bedside. Her head appears normocephalic and each medical. Her breathing appears nonlabored. On inspection of her bilateral upper extremities, there are no obvious deformities or signs of trauma. On inspection of her left lower extremity there are no obvious deformities or signs of trauma. Pain with palpation of the anterior knee. On inspection of her right hip there are no lacerations or abrasions. There is diffuse pain with palpation of the hip. There is no pain on palpation of the right thigh, knee, lower leg, ankle, foot. Motor and sensory function is intact of the right lower extremity. Right lower extremity is warm and well-perfused. Calves are soft nontender to palpation bilaterally. Results Right hip x-ray 01/01/21: Displaced intertrochanteric fracture right femur. - Labs Labs: Abnormal Lab Results - Last 24 Hours (Table) 01/01/21 01/01/21 01/01/21 Range/Units 18:30 18:30 18:30 WBC 11.7 H (3.8-10.6) k/uL RBC 3.24 L (3.80-5.40) m/uL Hgb 10.9 L (11.4-16.0) gm/dL Hct 33.4 L (34.0-46.0) % MCV 103.0 H (80.0-100.0) fL Plt Count 112 L (150-450) k/uL Neutrophils # 9.7 H (1.3-7.7) k/uL APTT 16.7 L (22.0-30.0) sec BUN 48 H (7-17) mg/dL Creatinine 1.17 H (0.52-1.04) mg/dL Glucose 217 H (74-99) mg/dL H & H 01/01/21 Range/Units 18:30 Hgb 10.9 L (11.4-16.0) gm/dL Hct 33.4 L (34.0-46.0) % Coagulation 01/01/21 Range/Units 18:30 INR 0.9 (<1.2) Result Diagrams: 01/01/21 18:30 01/01/21 18:30 Assessment and Plan Assessment: Right displaced intertrochanteric hip fracture Left knee pain Plan: - Patient was discussed with Dr. Conroy. Recommended surgical fixation of the patient's right intertrochanteric hip fracture. We will plan on OR today pending medical clearance and consent. Patient gave verbal consent for surgery this morning. - Will obtain x-rays of left knee. - Strict non-weight bearing right lower extremity. Bed rest. - Pain management as needed. - NPO diet. <Fer Conroy - Last Filed: 01/02/21 13:53> Results - Labs Labs: Abnormal Lab Results - Last 24 Hours (Table) 01/01/21 01/01/21 01/01/21 Range/Units 18:30 18:30 18:30 WBC 11.7 H (3.8-10.6) k/uL RBC 3.24 L (3.80-5.40) m/uL Hgb 10.9 L (11.4-16.0) gm/dL Hct 33.4 L (34.0-46.0) % MCV 103.0 H (80.0-100.0) fL Plt Count 112 L (150-450) k/uL Neutrophils # 9.7 H (1.3-7.7) k/uL APTT 16.7 L (22.0-30.0) sec BUN 48 H (7-17) mg/dL Creatinine 1.17 H (0.52-1.04) mg/dL Glucose 217 H (74-99) mg/dL POC Glucose (mg/dL) (75-99) mg/dL 01/02/21 Range/Units 11:33 WBC (3.8-10.6) k/uL RBC (3.80-5.40) m/uL Hgb (11.4-16.0) gm/dL Hct (34.0-46.0) % MCV (80.0-100.0) fL Plt Count (150-450) k/uL Neutrophils # (1.3-7.7) k/uL APTT (22.0-30.0) sec BUN (7-17) mg/dL Creatinine (0.52-1.04) mg/dL Glucose (74-99) mg/dL POC Glucose (mg/dL) 157 H (75-99) mg/dL H & H 01/01/21 Range/Units 18:30 Hgb 10.9 L (11.4-16.0) gm/dL Hct 33.4 L (34.0-46.0) % Coagulation 01/01/21 Range/Units 18:30 INR 0.9 (<1.2) Result Diagrams: 01/01/21 18:30 01/01/21 18:30 Assessment and Plan Plan: Agree with H&P by Shaylee ZUNIGA. I saw and examined the patient. I spoke with the patient, her and family. I recommended an IMHS. We discussed the potential risks and benefits of surgery. They know she is at a high risk given her medical co-morbidities. They provided their consent to go forward with surgery. Time with Patient: Greater than 30
--- NOTE | 2021-01-02 10:03 | P.CRDCN ---
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 She follows with Dr. Diana. We are being consulted for cardiac clearance for right hip gamma nail with Dr. Conroy today. Patient seen and examined at bedside with family at bedside. Yesterday she was walking into the hair salon and slipped on the wet floor and landed on her right hip. EMS was called at that time patient was alert and oriented 4 complaining of 8/10 right hip pain, and guarding her right hip and right leg. She didn't hit her head on the chair on the way down. Patient was given a total of 5 mg of IV morphine. Blood pressure was 146/63, heart rate 103, SpO2 99% on room air EKG revealed AV paced rhythm patient was transferred to [facility] for further evaluation. Patient denies any lightheadedness, dizziness, palpitations, chest pain, shortness of breath. She denies any symptoms of orthopnea or PND. Overall her family states since her pacemaker was placed in September 2019, she has been feeling much better. X-ray revealed mildly displaced right intertrochanteric fracture. DIAGNOSTICS Her pacemaker was interrogated in the office on 10/08/2020- functioning normally. Patient did have an episode of atrial fibrillation with V pacing lasting about 3 hours. A fib burden <0.1%. EKG reveals- AV paced rhythm HR 78 Echocardiogram with Doppler study on 09/14/2019 which showed mildly impaired LV systolic function with an ejection fraction between 45-50%, apical anterior and apical septal hypokinesis with moderately enlarged RV, severely dilated LA, moderately enlarged RA, moderate to severe aortic stenosis with a peak gradient of 58.94 mmHg and a mean gradient of 30.55 mmHg, aortic valve area by continuing T equation is 0.7 cm. Severe mitral annular calcification, moderate MR, moderate MS, moderate to severe TR, moderate to severe pulmonary hypertension. Chest xray Stable cardiomegaly, bronchial cuffing over the left hemithorax Laboratory reviewed, WBC 11.7, Hgb 10.9, Plt 112, Na 139, K 3.7, BUN 48, sCr 1.17 (within baseline), Covid-19 PCR negative Current home cardiac medications include carvedilol 6.25 mg twice a day, Lasix 40 mg twice a day, atorvastatin 80 mg nightly, Eliquis 2.5 mg twice a day REVIEW OF SYSTEMS At the time of my exam: CONSTITUTIONAL: Denies fever or chills. CARDIOVASCULAR: Denies chest pain, shortness of breath, orthopnea, PND or palpitations. RESPIRATORY: Denies cough. GASTROINTESTINAL: Denies abdominal pain, diarrhea, constipation, nausea or vomiting. MUSCULOSKELETAL: +Right hip pain NEUROLOGIC: Denies numbness, tingling, headacbe or weakness. ENDOCRINE: Denies fatigue, weight change, polydipsia or polyurina. GENITOURINARY: Denies burning, hematuria or urgency with micturation. HEMATOLOGIC: +history of anemia. Denies bleeding. PHYSICAL EXAMINATION Blood pressure 179/61, heart rate 84, afebrile, maintaining oxygen saturations on room air. CONSTITUTIONAL: No apparent distress. HEENT: Head is normocephalic. Pupils are equal, round. Sclerae anicteric. Mucous membranes of the mouth are moist. No JVD. No carotid bruit. CHEST EXAMINATION: Lungs are clear to auscultation. No chest wall tenderness is noted on palpation or with deep breathing. HEART EXAMINATION: Regular rate and rhythm. S1, S2 heard. Systolic murmur at right sternal border, systolic murmur at apex, No gallops or rub. ABDOMEN: Soft, nontender. Positive bowel sounds. EXTREMITIES: 2+ peripheral pulses, no lower extremity edema and no calf tenderness. NEUROLOGIC EXAMINATION: Patient is awake, alert and oriented x ASSESSMENT Mechanical Fall Right intertrochanteric fracture reported on Xray Paroxysmal atrial fibrillation (on Eliqius) Moderate to severe aortic stenosis Pacemaker implantation for high degree heart AV block done on 09/18/2019 Coronary artery disease s/p CABG in 2011 Congestive heart failure Type 2 diabetes GERD Hyperlipidemia Hypertension Chronic kidney disease PLAN -We will obtain 2D echocardiogram -Eliquis on hold due to planned procedure, recommend restarting once approved by surgery -Patient is higher risk for cardiovascular event during surgery, due to patient's significant cardiac history as noted above. From a cardiology perspective, benefit of surgery outweighs the risk at this time, patient is hemodynamically stable, does not have any acute cardiac conditions at this time. -Continue patient's beta jayde and statin. -Further recommendations based on clinical course. Nurse Practitioner note has been reviewed, I agree with a documented findings and plan of care. Patient was seen and examined. 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 She is independent. She uses a walker for ambulation. Smoking Status: Never smoker Past Alcohol Use History: Occasional Additional Past Alcohol Use History / Comment(s): Patient is and lives with her . Past Drug Use History: None Reported - Past Family History Mother Family Medical History: Cancer, Diabetes Mellitus Additional Family Medical History / Comment(s): Mother at age 84 from Alzheimer's, old age. No coronary artery disease, no diabetes, history of breast cancer. Father Family Medical History: Congestive Heart Failure (CHF) Additional Family Medical History / Comment(s): Father in his early 80s from diabetes, occasions. No coronary artery disease. Brother(s) Family Medical History: Cancer (Patient is lives with her , functionally active denies any need a walker or assistance) Additional Family Medical History / Comment(s): Patient had total of 4 brothers. One at 69 from alcohol abuse. One at age 8 from kidney failure, a third brother has of unknown cause. One brother is alive at age 75 with no major medical problems. Sister(s) Additional Family Medical History / Comment(s): Patient has one sister with Crohn's 1 with irritable bowel syndrome. Patient does not have any children. Medications and Allergies Home Medications Medication Instructions Recorded Confirmed Type Allopurinol 100 mg PO BID 03/05/14 01/01/21 History Atorvastatin [Lipitor] 80 mg PO HS 09/24/14 01/01/21 History Doxazosin [Cardura] 4 mg PO DAILY 12/10/18 01/01/21 History carvediloL [Coreg] 6.25 mg PO BID-W/MEALS #60 tab 09/19/19 01/01/21 Rx Furosemide [Lasix] 40 mg PO BID #60 tab 09/26/19 01/01/21 Rx Apixaban [Eliquis] 2.5 mg PO BID 01/01/21 01/01/21 History Dapagliflozin Propanediol [Farxiga] 5 mg PO DAILY 01/01/21 01/01/21 History Dicyclomine [Bentyl] 10 mg PO TID-W/MEALS 01/01/21 01/01/21 History Insulin NPL/Insulin Lispro 30 unit SQ AC-TID 01/01/21 01/01/21 History [humaLOG MIX 75-25 VIAL] Nitroglycerin Sl Tabs [Nitrostat] 0.4 mg SUBLINGUAL Q5M PRN 01/01/21 01/01/21 History Allergies Allergy/AdvReac Type Severity Reaction Status Date / Time cortisone Allergy Rash/Hives Verified 01/01/21 17:21 morphine Allergy Unknown Verified 01/01/21 17:21 Penicillins Allergy Rash/Hives Verified 01/01/21 17:21 Physical Exam Vitals: Vital Signs Temp Pulse Pulse Resp BP BP Pulse Ox 01/02/21 01:49 97.4 F L 76 18 178/61 93 L 01/01/21 21:52 98.1 F 87 17 195/63 94 L 01/01/21 21:08 65 18 171/57 94 L 01/01/21 18:37 62 18 157/72 98 01/01/21 15:45 97.0 F L 67 18 162/59 97 Intake and Output 01/01/21 01/02/21 01/02/21 22:59 06:59 14:59 Output Total 1600 Balance -1600 Output: Urine 1600 Other: Voiding Method Indwelling Catheter Weight 58.513 kg Results 01/01/21 18:30 01/01/21 18:30 Cardiac Enzymes 01/01/21 Range/Units 18:30 AST 31 (14-36) U/L Coagulation 01/01/21 Range/Units 18:30 PT 9.9 (9.0-12.0) sec APTT 16.7 L (22.0-30.0) sec CBC 01/01/21 Range/Units 18:30 WBC 11.7 H (3.8-10.6) k/uL RBC 3.24 L (3.80-5.40) m/uL Hgb 10.9 L (11.4-16.0) gm/dL Hct 33.4 L (34.0-46.0) % Plt Count 112 L (150-450) k/uL Comprehensive Metabolic Panel 01/01/21 Range/Units 18:30 Sodium 139 (137-145) mmol/L Potassium 3.7 (3.5-5.1) mmol/L Chloride 106 (98-107) mmol/L Carbon Dioxide 26 (22-30) mmol/L BUN 48 H (7-17) mg/dL Creatinine 1.17 H (0.52-1.04) mg/dL Glucose 217 H (74-99) mg/dL Calcium 9.6 (8.4-10.2) mg/dL AST 31 (14-36) U/L ALT 18 (4-34) U/L Alkaline Phosphatase 78 (38-126) U/L Total Protein 6.3 (6.3-8.2) g/dL Albumin 3.7 (3.5-5.0) g/dL Current Medications Generic Name Dose Route Start Last Admin Trade Name Freq PRN Reason Stop Dose Admin Hydromorphone HCl 0.5 mg 01/01/21 17:38 01/02/21 03:23 Hydromorphone 0.5 Mg/0.5 Ml Syringe IVP 0.5 mg Q3HR PRN Administration Moderate Pain Hydromorphone HCl 1 mg 01/01/21 17:38 01/01/21 21:05 Hydromorphone 1 Mg/Ml 1 Ml Syringe IVP 1 mg Q3HR PRN Administration Severe Pain Sodium Chloride 1,000 mls @ 75 mls/hr 01/01/21 17:45 01/01/21 19:56 Saline 0.9% IV 75 mls/hr .[id number] RAFAT Administration Naloxone HCl 0.2 mg 01/01/21 17:38 Naloxone 0.4 Mg/Ml 1 Ml Vial IV Q2M PRN Opioid Reversal Ondansetron HCl 4 mg 01/01/21 17:38 Ondansetron 4 Mg/2 Ml Vial IVP Q8HR PRN Nausea And Vomiting Pantoprazole Sodium 40 mg 01/02/21 09:00 Pantoprazole 40 Mg/10 Ml Vial IV DAILY RAFAT Intake and Output 01/01/21 01/02/21 01/02/21 22:59 06:59 14:59 Output Total 1600 Balance -1600 Output: Urine 1600 Other: Voiding Method Indwelling Catheter Weight 58.513 kg 01/01/21 18:30 01/01/21 18:30
--- NOTE | 2021-01-02 10:19 | XR ---
EXAMINATION TYPE: XR knee complete LT DATE OF EXAM: 01/02/2021 CLINICAL HISTORY: pain TECHNIQUE: Three views of the left knee are obtained. COMPARISON: None. FINDINGS: There is no acute fracture/dislocation. The tri-compartment joint spaces appear within no rmal limits. The overlying soft tissue appears unremarkable. IMPRESSION: There is no acute fracture or dislocation ICD 10 NO FRACTURE, INITIAL EVALUATION
[2021-01-02] MEDS: carvediloL 6.25 MG TAB PO SCH ×2 (11:00→18:04)
[2021-01-02] MEDS ORDERED: NITROGLYCERIN SL TABS 0.4 MG TAB SUBLINGUAL PRN (11:21)
[2021-01-02 11:35] LABS: Glucose,Whole Blood 157 mg/dL (75-99)
[2021-01-02] MEDS: INSULIN ASPART (NovoLOG) 100 UNIT/ML VIAL SQ SCH ×3 (11:48→22:30)
--- NOTE | 2021-01-02 11:57 | P.CONS ---
History of Present Illness - Reason for Consult Consult date: 01/02/21 medical management Requesting physician: Fer Conroy - History of Present Illness HISTORY OF PRESENT ILLNESS This is an 85-year-old female patient of Dr. Bill and Dr. Diana with past medical history of coronary artery disease status post CABG in 2011 followe d by myocardial infarction, chronic systolic heart failure, valvular heart disease in the form of severe aortic stenosis and moderate to severe tricuspid regurgitation and severe pulmonary hypertension, hypertension, hypertensive cardiovascular disease, hyperlipidemia, chronic kidney disease stage III, anemia of chronic disease, chronic gout diabetes mellitus type 2 insulin requiring, cervical stenosis, chronic back pain, generalized anxiety disorder. 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 Patient's states that yesterday, they were walking into the [employer] parlor and the floor was wet from rain, she walked 5 steps and slipped and fell and subsequently patient complained of right hip pain which was very severe and she was unable to move her right leg. Patient is seen today on the [facility] floor, she continues to have significant pain to the right hip area. Patient came into [facility] emergency center for evaluation and was found to have a right-sided comminuted mildly displaced right intertroc hanteric fracture. Chest x-ray reveals stable cardiomegaly. No consolidation, effusion or pneumothorax. Bronchial cuffing over the left upper hemithorax component of hiatal or reactive small airway disease. Left knee x-ray showed no fracture. CAT scan of the brain and cervical spine showed no acute fracture dislocation of the cervical spine, no acute intracranial hemorrhage, mass effect or midline shift. Patient was afebrile, heart rate 67, blood pressure 162/59, pulse ox 97% on room air. EKG was a paced rhythm. WBC 11.7, hemoglobin 10.9, platelet count 112. Electrolytes were normal. BUN 48 creatinine 1.17 which is patient's baseline. Blood sugar 217. Liver function tests were normal. Coronavirus PCR not detected. Patient has been admitted under the care of orthopedics with plan for surgical fixation this afternoon. Cardiology consult in place for clearance. REVIEW OF SYSTEMS Constitutional: No fever, no chills, no night sweats. No weight change. No weakness, fatigue or lethargy. No daytime sleepiness. EENT: No headache. No blurred vision or double vision, no loss of vision. No loss of Hearing, no ringing in the ears, no dizziness. No nasal drainage or congestion. No epistaxis. No sore throat. Lungs: No shortness of breath, cough, no sputum production. No wheezing. Cardiovascular: No chest pain, no lower extremity edema. No palpitations. No paroxysmal nocturnal dyspnea. No orthopnea. No lightheadedness or dizziness. No syncopal episodes. Abdominal: No abdominal pain. No nausea, vomiting. No diarrhea. No constipation. No bloody or tarry stools.. No loss of appetite. Genitourinary: No dysuria, increased frequency, urgency. No urinary retention. Musculoskeletal: No myalgias. No muscle weakness, no gait dysfunction, no frequent falls. No back pain. No neck pain. Right hip pain. Integumentary: No wounds, no lesions. No rash or pruritus. No unusual bruising. No change in hair or nails. Neurologic: No aphasia. No facial droop. No change in mentation. No head injury. No headache. No paralysis. No paresthesia. Psychiatric: No depression. No anxiety. No mood swings. Endocrine: No abnormal blood sugars. No weight change. No excessive sweating or thirst. No cold intolerance. MEDICAL HISTORY Coronary artery disease status post CABG in 2011 followed by myocardial infarction Chronic systolic heart failure Valvular heart disease with severe aortic stenosis, moderate to severe tricuspid regurgitation and severe pulmonary hypertension Hypertension, hypertensive cardiovascular disease Hyperlipidemia Chronic kidney disease stage III Anemia of chronic disease Chronic gout Diabetes mellitus type 2, insulin requiring Cervical stenosis Chronic back pain Generalized anxiety disorder SURGICAL HISTORY Coronary artery bypass grafting Cholecystectomy Hysterectomy D&C Bilateral foot surgery to remove tumors Permanent pacemaker 09/29 SOCIAL HISTORY Patient is lives with her , functionally active denies any need a walker or assistance FAMILY HISTORY Mother at age 84 from Alzheimer's, old age. No coronary artery disease, no diabetes, history of breast cancer. Father in his early 80s from diabetes, occasions. No coronary artery disease. Patient had total of 4 brothers. One at 69 from alcohol abuse. One at age 8 from kidney failure, a third brother has of unknown cause. One brother is alive at age 75 with no major medical problems. Patient has one sister with Crohn's 1 with irritable bowel syndrome. Patient does not have any children. PHYSICAL EXAMINATION Gen: This is this is an 85-year-old female. Patient is resting in bed appears to be comfortable and in no acute distress. Family members are at bedside. HEENT: Head is atraumatic, normocephalic. Pupils equal, round. Sclerae is anicteric. Oral mucous membranes are very dry. NECK: Supple. No JVP. Decreased carotid upstroke bilaterally. No lymphadenopathy. No thyromegaly. LUNGS: Decreased breath sounds at the bases. No wheezes or rhonchi. No intercostal retractions. No accessory muscle usage. HEART: Permanent pacemaker located in the left upper precordium, first heart sound is depressed, second heart sound is normal, there is systolic ejection mu rmur 3/6 located in the right upper sternal border didn't to the neck. ABDOMEN: Soft. Bowel sounds are present. No masses. No tenderness. EXTREMITIES: No pedal edema. No calf tenderness. Right lower extremity is shortened with external rotation. Dorsalis pedis palpable bilaterally. NEUROLOGICAL: Patient is awake, alert and oriented x3. Cranial nerves 2 through 12 are grossly intact. Muscle power 4 out of 5 in upper extremities and 3 out of 5 in left lower extremities ASSESSMENT AND PLAN 1. Right intertrochanteric fracture secondary to mechanical fall. Orthopedics is planning for surgical intervention this afternoon, cardiology consult for surgical clearance. Eliquis is on hold. Continue Coreg 6.25 mg twice daily. Continue current pain management. 2. Thrombocytopenia. Repeat CBC tomorrow. 3. Diabetes mellitus type 2 insulin requiring, uncontrolled with hyperglycemia. Hemoglobin A1c 9.6. Patient will be placed on NovoLog scale before meals and a t bedtime, resume NovoLog 75/25 tomorrow morning at 30 units 3 times daily. 4. History of coronary artery disease status post CABG in 2011 followed by stenting. Cardiology consult. Patient resumed on Coreg and Lipitor. 5. Chronic systolic heart failure. IV fluids increased to 75 mL per hour. 6. Valvular heart disease with severe aortic stenosis, moderate to severe tricuspid regurgitation and severe pulmonary hypertension. 7. Hypertension, hypertensive cardiovascular disease. Continue Coreg, Cardura 4 mg daily. 8. Hyperlipidemia. Continue Lipitor. 9. Chronic kidney disease stage III. 10. Anemia of chronic disease. 11. Chronic gout. Continue allopurinol 100 mg twice daily. 12. COVID-19 testing negative. Patient will be admitted to the hospital for a minimum of 2 night stay. DISCHARGE PLAN Most likely subacute rehab. Impression and plan of care have been directed as dictated by the signing physician. Talia Schneider nurse practitioner acting as scribe for signing physician. Past Medical History Past Medical History: Coronary Artery Disease (CAD), Heart Failure, Diabetes Mellitus, GERD/Reflux, Hyperlipidemia, Hypertension, Myocardial Infarction (MT), Osteoarthritis (OA), Renal Disease Additional Past Medical History / Comment(s): History of valvular heart disease with aortic stenosis, moderate mitral regurgitation stenosis, coronary artery disease with previous MT and previous bypass surgery, chronic anemia, chronic osteoarthritis and neck pain, diabetes mellitus, hypertension and hyperlipidemia, secondary pulmonary hypertension related to valvular heart disea se Last Myocardial Infarction Date:: 2011 History of Any Multi-Drug Resistant Organisms: None Reported Past Surgical History: Cholecystectomy, Coronary Bypass/CABG, Hysterectomy Additional Past Surgical History / Comment(s): 8x D&C, CABG 7 Blockages, bilateral foot surgery to remove tumors Past Anesthesia/Blood Transfusion Reactions: No Reported Reaction Type of Cardiac Device: Permanent Pacemaker Device Placement Date:: 09/15/19 Past Psychological History: No Psychological Hx Reported Additional Psychological History / Comment(s): Pt resides with her spouse. She is independent. She uses a walker for ambulation. Smoking Status: Never smoker Past Alcohol Use History: Occasional Additional Past Alcohol Use History / Comment(s): Patient is and lives with her . Past Drug Use History: None Reported - Past Family History Mother Family Medical History: Cancer, Diabetes Mellitus Additional Family Medical History / Comment(s): Mother at age 84 from Alzheimer's, old age. No coronary artery disease, no diabetes, history of breast cancer. Father Family Medical History: Congestive Heart Failure (CHF) Additional Family Medical History / Comment(s): Father in his early 80s from diabetes, occasions. No coronary artery disease. Brother(s) Family Medical History: Cancer (Patient is lives with her , functionally active denies any need a walker or assistance) Additional Family Medical History / Comment(s): Patient had total of 4 brothers. One at 69 from alcohol abuse. One at age 8 from kidney failure, a third brother has of unknown cause. One brother is alive at age 75 with no major medical problems. Sister(s) Additional Family Medical History / Comment(s): Patient has one sister with Crohn's 1 with irritable bowel syndrome. Patient does not have any children. Medications and Allergies Home Medications Medication Instructions Recorded Confirmed Type Allopurinol 100 mg PO BID 03/05/14 01/01/21 History Atorvastatin [Lipitor] 80 mg PO HS 09/24/14 01/01/21 History Doxazosin [Cardura] 4 mg PO DAILY 12/10/18 01/01/21 History carvediloL [Coreg] 6.25 mg PO BID-W/MEALS #60 tab 09/19/19 01/01/21 Rx Furosemide [Lasix] 40 mg PO BID #60 tab 09/26/19 01/01/21 Rx Apixaban [Eliquis] 2.5 mg PO BID 01/01/21 01/01/21 History Dapagliflozin Propanediol [Farxiga] 5 mg PO DAILY 01/01/21 01/01/21 History Dicyclomine [Bentyl] 10 mg PO TID-W/MEALS 01/01/21 01/01/21 History Insulin NPL/Insulin Lispro 30 unit SQ AC-TID 01/01/21 01/01/21 History [humaLOG MIX 75-25 VIAL] Nitroglycerin Sl Tabs [Nitrostat] 0.4 mg SUBLINGUAL Q5M PRN 01/01/21 01/01/21 History Allergies Allergy/AdvReac Type Severity Reaction Status Date / Time cortisone Allergy Rash/Hives Verified 01/01/21 17:21 morphine Allergy Unknown Verified 01/01/21 17:21 Penicillins Allergy Rash/Hives Verified 01/01/21 17:21 Physical Exam Vitals: Vital Signs Temp Pulse Pulse Resp BP BP Pulse Ox 01/02/21 01:49 97.4 F L 76 18 178/61 93 L 01/01/21 21:52 98.1 F 87 17 195/63 94 L 01/01/21 21:08 65 18 171/57 94 L 01/01/21 18:37 62 18 157/72 98 01/01/21 15:45 97.0 F L 67 18 162/59 97 Intake and Output 01/01/21 01/02/21 01/02/21 22:59 06:59 14:59 Output Total 1600 Balance -1600 Output: Urine 1600 Other: Voiding Method Indwelling Catheter Weight 58.513 kg Results CBC & Chem 7: 01/01/21 18:30 01/01/21 18:30 Labs: Abnormal Lab Results - Last 24 Hours (Table) 01/01/21 01/01/21 01/01/21 Range/Units 18:30 18:30 18:30 WBC 11.7 H (3.8-10.6) k/uL RBC 3.24 L (3.80-5.40) m/uL Hgb 10.9 L (11.4-16.0) gm/dL Hct 33.4 L (34.0-46.0) % MCV 103.0 H (80.0-100.0) fL Plt Count 112 L (150-450) k/uL Neutrophils # 9.7 H (1.3-7.7) k/uL APTT 16.7 L (22.0-30.0) sec BUN 48 H (7-17) mg/dL Creatinine 1.17 H (0.52-1.04) mg/dL Glucose 217 H (74-99) mg/dL
--- NOTE | 2021-01-02 12:10 | ECHOF ---
Referral Reason:lv function MEASUREMENTS -------- HEIGHT: 152.4 cm WEIGHT: 58.5 kg BP: RVIDd: 3.2 cm (< 3.3) IVSd: 1.6 cm (0.6 - 1.1) LVIDd: 3.9 cm (3.9 - 5.3) LVPWd: 1.6 cm (0.6 - 1.1) IVSs: 1.9 cm LVIDs: 2.8 cm LVPWs: 2.2 cm LA Diam: 4.7 cm (2.7 - 3.8) LAESV Index (A-L): 70.03 ml/m Ao Diam: 2.9 cm (2.0 - 3.7) LA Diam: 4.5 cm (2.7 - 3.8) MV EXCURSION: 16.312 mm (> 18.000) MV EF SLOPE: 33 mm/s (70 - 150) EPSS: 0.5 cm MV E Paco: 1.50 m/s MV DecT: 345 ms MV A Paco: 1.48 m/s MV E/A Ratio: 1.01 AV maxP.51 mmHg AV meanP.08 mmHg RAP: 5.00 mmHg RVSP: 73.56 mmHg FINDINGS -------- Pacerwire seen in RV and RA. This was a technically adequate study. The left ventricular size is normal. There is moderate concentric left ventricular hypertrophy. O verall left ventricular systolic function is mildly impaired with, an EF between 45 - 50 %. Apical anterior LV wall motion is hypokinetic. Apical septum LV wall motion is hypokinetic. The right ventricle is normal in size. LA is severely dilated >40 ml/m2 The right atrial size is normal. There is moderate aortic valve sclerosis. There is moderate aortic stenosis present. Peak/mean gr adient across the Aortic Valve is 38.51mmHg / 19.08mmHg. Moderate mitral annular calcification present. Mild mitral regurgitation is present. The peak an d mean MV gradients are 15.49mmHg 5.03mmHg as measured by doppler. The tricuspid valve appears structurally normal. Mild tricuspid regurgitation present. There is s evere pulmonary hypertension. The right ventricular systolic pressure, as measured by Doppler, is 7 3.56mmHg. There is no pulmonic regurgitation present. The aortic root size is normal. There is no pericardial effusion. CONCLUSIONS -------- 1. Pacerwire seen in RV and RA. 2. There is moderate concentric left ventricular hypertrophy. 3. Overall left ventricular systolic function is mildly impaired with, an EF between 45 - 50 %. 4. Apical anterior LV wall motion is hypokinetic. 5. Apical septum LV wall motion is hypokinetic. 6. LA is severely dilated >40 ml/m2 7. There is moderate aortic stenosis present. 8. Peak/mean gradient across the Aortic Valve is 38.51mmHg / 19.08mmHg. 9. Moderate mitral annular calcification present. 10. Mild mitral regurgitation is present. 11. The peak and mean MV gradients are 15.49mmHg 5.03mmHg as measured by doppler. 12. Mild tricuspid regurgitation present. 13. There is severe pulmonary hypertension. 14. There is no pericardial effusion. HYDRO PNEUMATIC TESTER: Krista Wilcox RDCS
[2021-01-02] MEDS ORDERED: TRANEXAMIC ACID 1,000 MG in SODIUM CHLORIDE 0.9% 100 ML IVPB ONE ×2 (12:30→12:40)
[2021-01-02] MEDS ORDERED: LACTATED RINGERS 1,000 ML IV ONE (13:45)
[2021-01-02] MEDS ORDERED: ONDANSETRON 4 MG/2 ML VIAL IVP ONE (13:52)
[2021-01-02] MEDS ORDERED: DEXAMETHASONE SOD PHOSPHATE 4 MG/ML 1 ML VIAL IVP ONE (13:53)
[2021-01-02 13:54] LABS: Glucose,Whole Blood 181 mg/dL (75-99)
[2021-01-02] MEDS ORDERED: LIDOCAINE 1% INJ 10MG/ML (20 ML MDV) ONE (14:22)
[2021-01-02] MEDS ORDERED: SODIUM CHLORIDE 0.9% 100 ML BAG ONE (14:22)
[2021-01-02] MEDS ORDERED: fentaNYL (PF) 50 MCG/ML 2 ML AMP ONE (14:22)
[2021-01-02] MEDS ORDERED: TRANEXAMIC ACID 1,000 MG/10 ML VIAL ONE (14:22)
[2021-01-02] MEDS ORDERED: ETOMIDATE 2 MG/ML 10 ML VIAL ONE (14:22)
[2021-01-02] MEDS ORDERED: SUCCINYLCHOLINE CHLORIDE 100 MG/5 ML SYR IV ONE (14:22)
[2021-01-02] MEDS ORDERED: LIDOCAINE 2%-EPI 1:100,000 20 ML VIAL SQ ONE ×2 (15:15)
--- NOTE | 2021-01-02 16:07 | P.OP ---
Date of Procedure: 01/02/21 Preoperative Diagnosis: 1. Right comminuted peritrochanteric fracture 2. Coronary artery disease 3. Aortic stenosis 4. Renal insufficiency 5. History of delayed wound healing and infection following previous procedures Postoperative Diagnosis: Same Procedure(s) Performed: Operative fixation of right intertrochanteric hip fracture with short intramedullary hip screw Anesthesia: JOSSE Surgeon: Fer Conroy [employer] #1: Shaylee Zendejas Estimated Blood Loss (ml): 150 IV fluids (ml): 200 Urine output (ml): 400 Pathology: none sent Condition: stable Disposition: PACU Indications for Procedure: The patient is an 85-year-old female with multiple medical problems who sustained a ground-level fall resulting in a comminuted right peritrochanteric hip fracture. She was admitted through the ER under my care. She was seen by both internal medicine and cardiology and cleared for surgery. I met with the patient and her family preoperatively to discuss treatment. I recommended operative fixation with a short intramedullary hip screw. We discussed potential risks and competitions of surgery including but not limited to risks from anesthesia, infection, delayed wound healing, nonunion, malunion, hardware collapse, hardware failure, varus collapse of her fracture, cut out of the lag screw, right prosthetic hip fracture, DVT, PE, pressure sores, failure to thrive, and inability to regain preinjury level of function, and possibly . The patient and her family understand these potential risks and provided their consent to go forward with surgery. They also understand that other less common complications are possible. Description of Procedure: The patient was identified In holding and the correct right leg was marked with my initials. The patient was brought back to the operating room. A general anesthetic, preoperative antibiotics, and transit chemic acid were given. Boots for the Afua table were placed on the gurney. The patient was then transferred onto the Afua table. A perineal post was placed. She is carefully positioned. A timeout was performed identifying the correct patient, operative extremity, and procedure. The nonoperative left leg was dropped and the right leg was distracted with gross traction followed by internal rotation, adduction, and fine traction. Fluoroscopy was brought in to verify that the fracture was re duced on orthogonal views. The right leg was then prepped and draped in the standard sterile fashion. I began by marking out a 3 cm incision just proximal to the tip of the greater trochanter in line with the femur. A sharp awl was used to gain entrance to the canal and its position was verified on orthogonal fluoroscopic images. A guidepin was placed through the awl. An opening reamer and soft tissue protector were placed over the guidepin and the proximal femur was opened. A ball-tipped guidewire was placed. A short 130 , 11 mm diameter gamma nail was dispensed. As a targeting arm. I verified that the sleeves lined up with the slots on the nail. The nail was advanced into the proximal femur. The ball- tipped guidewire was removed. The trocar was placed through the targeting arm down the lateral skin and a skin incision was made. The trocar was placed on the lateral femur and a guidepin was placed in the center center position verified on orthogonal views. The length of the pin was measured and then reamed. A 95 mm lag screw was placed over the guidepin. The set screw was placed proximally. The trocar was placed through the distal aspect of the targeting arm and a stab incision was made over the skin down to the femur. A distal interlocking screw was then placed. The targeting arm was then removed. Final fluoroscopic images were taken. All wounds were thoroughly irrigated and closed in layers. Tubes lidocaine with epinephrine was injected around the wounds. Sterile dressings were applied. The patient was then taken off the Afua table, the drapes were taken down, she was awoken from her anesthetic, and brought to recovery having tolerated the procedure well. Shaylee Zendejas PA-C was required as a skilled anesthesiology physician assistant throughout the procedure. Plan: The patient can weight-bear as tolerated on her right leg. I would like to be for surgical dressings on until follow-up in the office. Due to her history of delayed wound healing, to give her doxycycline 100 mg twice a day. I will defer medical management to internal medicine. Jag can resume tomorrow. Will likely need discharge to a rehab facility or fdc.
--- NOTE | 2021-01-02 16:14 | FL ---
Fluoroscopy History: RT HIP NAILING RT HIP NAILING. DR ARZATE- 1 MIN 34 SEC FL TIME.
[2021-01-02] MEDS ORDERED: hydrOXYzine pamoate 25 MG CAP PO PRN (16:23)
[2021-01-02] MEDS ORDERED: NALOXONE 0.4 MG/ML 1 ML VIAL IV PRN (16:23)
[2021-01-02] MEDS ORDERED: HYDROmorphone 0.5 MG/0.5 ML SYRINGE IVP ONE (16:58)
[2021-01-02] MEDS: LACTATED RINGERS 1,000 ML IV SCH (17:17)
[2021-01-02 17:56] LABS: Glucose,Whole Blood 225 mg/dL (75-99)
[2021-01-02] MEDS: HYDROcodone/APAP 5-325MG 1 EACH TAB PO PRN (19:45)
[2021-01-02 19:54] LABS: Glucose,Whole Blood 211 mg/dL (75-99)
[2021-01-02 21:22] LABS: Basophils % (A) 0 %; Eosinophils # (A) 0.1 k/uL (0-0.7); Eosinophils % (A) 0 %; HCT 30.7 % (34.0-46.0); HGB 9.7 gm/dL (11.4-16.0); Lymphocytes # (A) 0.6 k/uL (1.0-4.8); Lymphocytes % (A) 3 %; MCH 33.5 pg (25.0-35.0); MCHC 31.7 g/dL (31.0-37.0); MCV 105.8 fL (80.0-100.0); Macrocytosis Moderate; Mean Platelet Volume 11.1; Monocytes # (A) 0.6 k/uL (0-1.0); Monocytes % (A) 3 %; Neutrophils # (A) 16.5 k/uL (1.3-7.7); Neutrophils % (A) 92 %; RBC 2.91 m/uL (3.80-5.40); RDW 14.9 % (11.5-15.5); WBC 17.8 k/uL (3.8-10.6)
[2021-01-02 21:24] LABS: Platelet Count 281 k/uL (150-450)
[2021-01-02] MEDS: SENNOSIDES-DOCUSATE SODIUM 1 EACH TAB PO SCH (22:29)
[2021-01-02] MEDS: ATORVASTATIN 80 MG TAB PO SCH (22:30)
[2021-01-02] MEDS: allopurinoL 100 MG TAB PO SCH (22:30)
[2021-01-03] MEDS: HYDROcodone/APAP 5-325MG 1 EACH TAB PO PRN ×2 (05:05→12:28)
[2021-01-03] MEDS: SODIUM CHLORIDE 0.9% 1,000 ML IV SCH ×2 (05:07→12:31)
[2021-01-03] MEDS: LACTATED RINGERS 1,000 ML IV SCH ×2 (05:13→12:18)
[2021-01-03 06:55] LABS: Glucose,Whole Blood 314 mg/dL (75-99)
[2021-01-03] MEDS: DICYCLOMINE 10 MG CAP PO SCH ×4 (08:34→17:33)
[2021-01-03 08:59] LABS: African American GFR (CKD) 33 (>60 ml/min/1.73 sqM); Anion Gap 5 mmol/L; Blood Urea Nitrogen 50 mg/dL (7-17); Calcium 8.5 mg/dL (8.4-10.2); Carbon Dioxide 23 mmol/L (22-30); Chloride 112 mmol/L (98-107); Glucose 282 mg/dL (74-99); Non-African American GFR(CKD) 29 (>60 ml/min/1.73 sqM); Potassium 4.2 mmol/L (3.5-5.1); Sodium 140 mmol/L (137-145)
[2021-01-03] MEDS: DOXAZOSIN 4 MG TAB PO SCH (09:12)
[2021-01-03] MEDS: INSULIN ASPART (NovoLOG) 100 UNIT/ML VIAL SQ SCH ×4 (09:13→21:22)
[2021-01-03] MEDS: APIXABAN 2.5 MG TABLET PO SCH ×2 (09:13→21:28)
[2021-01-03] MEDS: carvediloL 6.25 MG TAB PO SCH ×2 (09:13→17:33)
[2021-01-03] MEDS: allopurinoL 100 MG TAB PO SCH ×2 (09:13→21:28)
[2021-01-03 09:16] LABS: Glucose,Whole Blood 330 mg/dL (75-99)
[2021-01-03] MEDS: PANTOPRAZOLE 40 MG/10 ML VIAL IV SCH (09:16)
--- NOTE | 2021-01-03 09:16 | P.PN ---
Subjective This is a pleasant 84-year-old female patient with a past medical history of paroxysmal atrial fibrillation (on Eliqius), moderate to severe aortic stenosis, pacemaker implantation for high degree heart AV block done on 09/18/2019, coronary artery disease s/p CABG in 2011, congestive heart failure, type 2 diabetes, GERD, hyperlipidemia, hypertension, chronic kidney disease. She follows with Dr. Diana. We were consulted for cardiac clearance for right hip gamma nail with Dr. Conroy today. 01/01/21 she was walking into the hair salon and slipped on the wet floor and landed on her right hip. EMS was called at that time patient was alert and oriented 4 complaining of 8/10 right hip pain, and guarding her right hip and right leg. She didn't hit her head on the chair on the way down. Patient was given a total of 5 mg of IV morphine. Blood pressure was 146/63, heart rate 103, SpO2 99% on room air EKG revealed AV paced rhythm patient was transferred to [facility] for further evaluation. Patient denies any lightheadedness, dizziness, palpitations, chest pain, shortness of breath. She denies any symptoms of orthopnea or PND. Overall her family states since her pacemaker was placed in September 2019, she has been feeling much better. X-ray revealed mildly displaced right intertrochanteric fracture. Orthopedics was consulted and planed for surgical fixation of the patient's right intertrochanteric hip fracture with Dr. Conroy. Patient is seen and examined at bedside, no acute distress. She denies any chest pain or shortness of breath. She does have pain on the right hip. She is POD #1 fixation of right intertrochanteric hip fracture with short intramedullary hip screw. Echocardiogram revealed EF of 4550%, apical anterior septum LV wall hypokinetic, LA severely tight, moderate aortic stenosis peak/mean gradient of 38 mmHg/19 mmHg, mild mitral regurgitation, mild tricuspid regurgitation, severe pulmonary hypertension Laboratory data reviewed sodium 140, potassium 4.2, BUN 50, serum creatinine 1.6 Patient is currently maintained on Eliquis 2.5 mg twice a day, atorvastatin 80 mg nightly, carvedilol 6.25 mg twice a day. PHYSICAL EXAMINATION Blood pressure 122/66, heart rate 72, afebrile, maintaining oxygen saturations on 2 L nasal cannula CONSTITUTIONAL: No apparent distress. HEENT: Neck Supple without JVD CHEST EXAMINATION: Lungs are clear to auscultation. No chest wall tenderness is noted on palpation or with deep breathing. HEART EXAMINATION: Regular rate and rhythm. S1, S2 heard. Systolic murmur at right sternal border, systolic murmur at apex, No gallops or rub. ABDOMEN: Soft, nontender. Positive bowel sounds. EXTREMITIES: 2+ peripheral pulses, no lower extremity edema and no calf tenderness. SKIN: Right hip clean dry, intact, no redness or erythema. NEUROLOGIC EXAMINATION: Patient is awake, alert and oriented x ASSESSMENT Mechanical Fall Right intertrochanteric fracture s/p fixation of right intertrochanteric hip fracture with short intramedullary hip screw on 01/02/21 Paroxysmal atrial fibrillation (on Eliqius) Moderate to severe aortic stenosis Pacemaker implantation for high degree heart AV block done on 09/18/2019 Coronary artery disease s/p CABG in 2011 Congestive heart failure Type 2 diabetes GERD Hyperlipidemia Hypertension Chronic kidney disease PLAN -Echocardiogram reviewed, no significant change from prior. -Her Eliquis has been restarted. -Continue patient's home cardiac medications -We will follow the patient as needed. Please reach out with questions or concerns. -Patient to follow up with Dr. Diana, has an appointment on January 17 at 2:30PM. Nurse Practitioner note has been reviewed, I agree with a documented findings and plan of care. Patient was seen and examined. Objective - Vital Signs Vital signs: Vital Signs Temp 97.2 F L 01/02/21 08:00 Pulse 84 01/02/21 08:00 Resp 20 01/02/21 08:00 BP 179/61 01/02/21 08:00 Pulse Ox 91 L 01/02/21 08:00 Intake & Output 01/01/21 01/02/21 01/02/21 18:59 06:59 18:59 Output Total 1600 Balance -1600 Weight 58.513 kg Output: Urine 1600 Other: Voiding Method Indwelling Catheter Indwelling Catheter - Labs CBC & Chem 7: 01/02/21 18:24 01/03/21 08:17 Labs: Abnormal Lab Results - Last 24 Hours (Table) 01/01/21 01/01/21 01/01/21 Range/Units 18:30 18:30 18:30 WBC 11.7 H (3.8-10.6) k/uL RBC 3.24 L (3.80-5.40) m/uL Hgb 10.9 L (11.4-16.0) gm/dL Hct 33.4 L (34.0-46.0) % MCV 103.0 H (80.0-100.0) fL Plt Count 112 L (150-450) k/uL Neutrophils # 9.7 H (1.3-7.7) k/uL APTT 16.7 L (22.0-30.0) sec BUN 48 H (7-17) mg/dL Creatinine 1.17 H (0.52-1.04) mg/dL Glucose 217 H (74-99) mg/dL
[2021-01-03] MEDS: INSULN ASP PRT/INSULIN ASPART 100 UNIT/ML 10 ML VIAL SQ SCH ×3 (09:48→17:34)
--- NOTE | 2021-01-03 10:03 | P.PN ---
Subjective Progress Note Date: 01/03/21 This patient is an 85- year old female who is status-post closed reduction right hip and insertion of right short gamma nail on 01/02/[address] Conroy. Today is post-operative day #1. Patient is seen and examined bedside with Dr. Conroy. She is up to the bedside chair. She states her pain is well-controlled in her hip. She ate her breakfast and tolerated it well. Patient denies new complaints or concerns today. Vital signs stable. Objective - Vital Signs Vital signs: Vital Signs Temp 97.4 F L 01/03/21 07:55 Pulse 72 01/03/21 07:55 Resp 20 01/03/21 07:55 BP 122/66 01/03/21 07:55 Pulse Ox 97 01/03/21 07:55 Intake & Output 01/02/21 01/03/21 01/03/21 18:59 06:59 18:59 Intake Total 750 Output Total 625 400 Balance 125 -400 Weight 58.5 kg Intake: IV 750 Output: Urine 475 400 Estimated Blood Loss 150 Other: Voiding Method Indwelling Catheter Indwelling Catheter - Exam On examination, patient is sitting up in the bedside chair in no apparent distress. She is alert and orientated x3. On inspection of the right hip, there are 3 clean, dry, intact surgical dressings. No bleeding or drainage through the dressings. Mild swelling of the thigh. The thigh is soft and compressible. Motor and sensory function is intact of the right lower extremity. The right lower extremity is warm and well-perfused. Calf is soft and non-tender bilaterally. - Labs CBC & Chem 7: 01/02/21 18:24 01/03/21 08:17 Labs: Abnormal Lab Results - Last 24 Hours (Table) 01/02/21 01/02/21 01/02/21 Range/Units 11:33 13:40 17:52 WBC (3.8-10.6) k/uL RBC (3.80-5.40) m/uL Hgb (11.4-16.0) gm/dL Hct (34.0-46.0) % MCV (80.0-100.0) fL Neutrophils # (1.3-7.7) k/uL Lymphocytes # (1.0-4.8) k/uL Chloride (98-107) mmol/L BUN (7-17) mg/dL Creatinine (0.52-1.04) mg/dL Glucose (74-99) mg/dL POC Glucose (mg/dL) 157 H 181 H 225 H (75-99) mg/dL 01/02/21 01/02/21 01/03/21 Range/Units 18:24 19:53 06:53 WBC 17.8 H (3.8-10.6) k/uL RBC 2.91 L (3.80-5.40) m/uL Hgb 9.7 L (11.4-16.0) gm/dL Hct 30.7 L (34.0-46.0) % MCV 105.8 H (80.0-100.0) fL Neutrophils # 16.5 H (1.3-7.7) k/uL Lymphocytes # 0.6 L (1.0-4.8) k/uL Chloride (98-107) mmol/L BUN (7-17) mg/dL Creatinine (0.52-1.04) mg/dL Glucose (74-99) mg/dL POC Glucose (mg/dL) 211 H 314 H (75-99) mg/dL 01/03/21 01/03/21 Range/Units 08:17 09:12 WBC (3.8-10.6) k/uL RBC (3.80-5.40) m/uL Hgb (11.4-16.0) gm/dL Hct (34.0-46.0) % MCV (80.0-100.0) fL Neutrophils # (1.3-7.7) k/uL Lymphocytes # (1.0-4.8) k/uL Chloride 112 H (98-107) mmol/L BUN 50 H (7-17) mg/dL Creatinine 1.64 H (0.52-1.04) mg/dL Glucose 282 H (74-99) mg/dL POC Glucose (mg/dL) 330 H (75-99) mg/dL Assessment and Plan Assessment: Status-post closed reduction right hip and insertion of right short gamma nail on 01/02/[address] Conroy. Post-operative day #1. Plan: - Patient may weight bear to tolerance on the operative extremity as tolerated. Up with assistance, up with a walker. - Physical therapy for gait and balance training. - Pain management as needed. - Patient has been re-started on her Eliquis for DVT prophylaxis. - Keep surgical dressings intact. - Appreciate internal medicine for brennen-operative medical management. - Anticipate discharge to rehab within next 1-2 days, pending medical clearance.
[2021-01-03 11:46] LABS: Glucose,Whole Blood 248 mg/dL (75-99)
--- NOTE | 2021-01-03 14:22 | P.PN ---
Subjective Progress Note Date: 01/03/21 HISTORY OF PRESENT ILLNESS This is an 85-year-old female patient of Dr. Bill and Dr. Diana with past medical history of coronary artery disease status post CABG in 2011 fol lowed by myocardial infarction, chronic systolic heart failure, valvular heart disease in the form of severe aortic stenosis and moderate to severe tricuspid regurgitation and severe pulmonary hypertension, paroxysmal atrial fibrillation, hypertension, hypertensive cardiovascular disease, hyperlipidemia, chronic kidney disease stage III, anemia of chronic disease, chronic gout diabetes mellitus type 2 insulin requiring, cervical stenosis, chronic back pain, generalized anxiety disorder. 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 Mati larios's states that yesterday, they were walking into the [employer] parlor and the floor was wet from rain, she walked 5 steps and slipped and fell and subsequently patient complained of right hip pain which was very severe and she was unable to move her right leg. Patient is seen today on the [facility] floor, she continues to have significant pain to the right hip area. Patient came into [facility] emergency center for evaluation and was found to have a right-sided comminuted mildly displaced right intertrochanteric fracture. Chest x-ray reveals stable cardiomegaly. No consolidation, effusion or pneumothorax. Bronchial cuffing over the left upper hemithorax component of hiatal or reactive small airway disease. Left knee x-ray showed no fracture. CAT scan of the brain and cervical spine showed no acute fracture dislocation of the cervical spine, no acute intracranial hemorrhage, mass effect or midline shift. Patient was afebrile, heart rate 67, blood pressure 162/59, pulse ox 97% on room air. EKG was a paced rhythm. WBC 11.7, hemoglobin 10.9, platelet count 112. Electrolytes were normal. BUN 48 creatinine 1.17 which is patient's baseline. Blood sugar 217. Liver function tests were normal. Coronavirus PCR not detected. Patient has been admitted under the care of orthopedics with plan for surgical fixation this afternoon. Cardiology consult in place for clearance. 01/03: Yesterday, patient underwent operative fixation of the right intertrochanteric hip fracture with short intramedullary hip screw. Patient can weight-bear as tolerated on her right leg and recommended doxycycline 100 mg twice daily due to delayed healing and eliquis was cleared to be resumed by the orthopedic surgeon. Patient will start working with physical therapy and oc cupational therapy today and discharge plan will be determined. At this time, plan is for home with [facility]NA but if recommendations are for subacute rehab, patient will go to [facility]. She has been afebrile, heart rate 72, blood pressure 122/66, pulse ox 97% on 2 L nasal cannula. Repeat blood work this morning reveals BUN 50, creatinine 1.64. Blood glucose running 282-330. Patient is resumed on her NovoLog 75/25 along with continued on NovoLog scale. REVIEW OF SYSTEMS Constitutional: No fever, no chills, no night sweats. No weight change. No weakness, fatigue or lethargy. No daytime sleepiness. EENT: No headache. No blurred vision or double vision, no loss of vision. No loss of Hearing, no ringing in the ears, no dizziness. No nasal drainage or congestion. No epistaxis. No sore throat. Lungs: No shortness of breath, cough, no sputum production. No wheezing. Cardiovascular: No chest pain, no lower extremity edema. No palpitations. No paroxysmal nocturnal dyspnea. No orthopnea. No lightheadedness or dizziness. No syncopal episodes. Abdominal: No abdominal pain. No nausea, vomiting. No diarrhea. No constipation. No bloody or tarry stools.. No loss of appetite. Genitourinary: No dysuria, increased frequency, urgency. No urinary retention. Musculoskeletal: No myalgias. No muscle weakness, no gait dysfunction, no frequent falls. No back pain. No neck pain. Right hip pain improved. Integumentary: No wounds, no lesions. No rash or pruritus. No unusual bruising. No change in hair or nails. Neurologic: No aphasia. No facial droop. No change in mentation. No head injury. No headache. No paralysis. No paresthesia. Psychiatric: No depression. No anxiety. No mood swings. Endocrine: Noted abnormal blood sugars. PHYSICAL EXAMINATION Gen: This is this is an 85-year-old female. Patient is resting in bed appears to be comfortable and in no acute distress. Family members are at bedside. HEENT: Head is atraumatic, normocephalic. Pupils equal, round. Sclerae is anicteric. Oral mucous membranes are very dry. NECK: Supple. No JVP. Decreased carotid upstroke bilaterally. No lymphadenopathy. No thyromegaly. LUNGS: Decreased breath sounds at the bases. No wheezes or rhonchi. No intercostal retractions. No accessory muscle usage. HEART: Permanent pacemaker located in the left upper precordium, first heart sound is depressed, second heart sound is normal, there is systolic ejection murmur 3/6 located in the right upper sternal border didn't to the neck. ABDOMEN: Soft. Bowel sounds are present. No masses. No tenderness. EXTREMITIES: No pedal edema. No calf tenderness. Dorsalis pedis palpable bilaterally. NEUROLOGICAL: Patient is awake, alert and oriented x3. Cranial nerves 2 through 12 are grossly intact. Muscle power 4 out of 5 in upper extremities and 3 out of 5 in left lower extremities ASSESSMENT AND PLAN 1. Right intertrochanteric fracture secondary to mechanical fall status post intramedullary hip screw 01/01. Continue current pain management, PT and OT evaluations, incentive spirometry to reduce incidence of atelectasis and hospital-acquired pneumonia. 2. Thrombocytopenia. Repeat CBC tomorrow. 3. Diabetes mellitus type 2 insulin requiring, uncontrolled with hyperglycemia. Hemoglobin A1c 9.6. Patient will be placed on NovoLog scale before meals and at bedtime, resume NovoLog 75/25 tomorrow morning at 30 units 3 times daily. 4. History of coronary artery disease status post CABG in 2011 followed by stenting. Cardiology consult. Patient resumed on Coreg and Lipitor. 5. Chronic systolic heart failure. IV fluids increased to 75 mL per hour. 6. Valvular heart disease with severe aortic stenosis, moderate to severe t ricuspid regurgitation and severe pulmonary hypertension. 7. Hypertension, hypertensive cardiovascular disease. Continue Coreg, Cardura 4 mg daily. 8. Hyperlipidemia. Continue Lipitor. 9. Paroxysmal atrial fibrillation. Patient will be resumed on eliquis. 10. Chronic kidney disease stage III. 11. Anemia of chronic disease. 12. Chronic gout. Continue allopurinol 100 mg twice daily. 13. DVT prophylaxis. Eliquis. COVID-19 testing negative. DISCHARGE PLAN Home with VNA pending PT/OT recommendations otherwise subacute rehab at [facility] Impression and plan of care have been directed as dictated by the signing physician. Talia Schneider nurse practitioner acting as scribe for signing physician. Objective - Vital Signs Vital signs: Vital Signs Temp 97.4 F L 01/03/21 07:55 Pulse 72 01/03/21 07:55 Resp 20 01/03/21 07:55 BP 122/66 01/03/21 07:55 Pulse Ox 97 01/03/21 07:55 Intake & Output 01/02/21 01/03/21 01/03/21 18:59 06:59 18:59 Intake Total 750 Output Total 625 400 Balance 125 -400 Weight 58.5 kg Intake: IV 750 Output: Urine 475 400 Estimated Blood Loss 150 Other: Voiding Method Indwelling Catheter Indwelling Catheter - Labs CBC & Chem 7: 01/02/21 18:24 01/03/21 08:17 Labs: Abnormal Lab Results - Last 24 Hours (Table) 01/02/21 01/02/21 01/02/21 Range/Units 11:33 13:40 17:52 WBC (3.8-10.6) k/uL RBC (3.80-5.40) m/uL Hgb (11.4-16.0) gm/dL Hct (34.0-46.0) % MCV (80.0-100.0) fL Neutrophils # (1.3-7.7) k/uL Lymphocytes # (1.0-4.8) k/uL POC Glucose (mg/dL) 157 H 181 H 225 H (75-99) mg/dL 01/02/21 01/02/21 01/03/21 Range/Units 18:24 19:53 06:53 WBC 17.8 H (3.8-10.6) k/uL RBC 2.91 L (3.80-5.40) m/uL Hgb 9.7 L (11.4-16.0) gm/dL Hct 30.7 L (34.0-46.0) % MCV 105.8 H (80.0-100.0) fL Neutrophils # 16.5 H (1.3-7.7) k/uL Lymphocytes # 0.6 L (1.0-4.8) k/uL POC Glucose (mg/dL) 211 H 314 H (75-99) mg/dL
[2021-01-03] MEDS: HYDROmorphone 0.5 MG/0.5 ML SYRINGE IVP PRN (16:09)
[2021-01-03 16:45] LABS: Glucose,Whole Blood 88 mg/dL (75-99)
[2021-01-03 20:12] LABS: Glucose,Whole Blood 110 mg/dL (75-99)
[2021-01-03] MEDS: SENNOSIDES-DOCUSATE SODIUM 1 EACH TAB PO SCH (21:27)
[2021-01-03] MEDS: ATORVASTATIN 80 MG TAB PO SCH (21:28)
[2021-01-04] MEDS: LACTATED RINGERS 1,000 ML IV SCH ×2 (02:06→15:30)
[2021-01-04] MEDS: SODIUM CHLORIDE 0.9% 1,000 ML IV SCH ×2 (02:06→15:25)
[2021-01-04 06:58] LABS: Glucose,Whole Blood 141 mg/dL (75-99)
[2021-01-04] MEDS: PANTOPRAZOLE 40 MG TABLET PO SCH (08:31)
[2021-01-04] MEDS: DOXAZOSIN 4 MG TAB PO SCH (08:32)
[2021-01-04] MEDS: INSULN ASP PRT/INSULIN ASPART 100 UNIT/ML 10 ML VIAL SQ SCH ×3 (08:32→18:47)
[2021-01-04] MEDS: DICYCLOMINE 10 MG CAP PO SCH ×3 (08:32→18:46)
[2021-01-04] MEDS: carvediloL 6.25 MG TAB PO SCH (08:32)
[2021-01-04] MEDS: allopurinoL 100 MG TAB PO SCH ×2 (08:32→21:18)
[2021-01-04] MEDS: APIXABAN 2.5 MG TABLET PO SCH ×2 (08:32→21:17)
[2021-01-04] MEDS: HYDROcodone/APAP 5-325MG 1 EACH TAB PO PRN (08:33)
[2021-01-04] MEDS: INSULIN ASPART (NovoLOG) 100 UNIT/ML VIAL SQ SCH ×3 (08:33→18:46)
--- NOTE | 2021-01-04 10:33 | P.PN ---
Subjective Progress Note Date: 01/04/21 Progress Note Date: 01/04/21 HISTORY OF PRESENT ILLNESS This is an 85-year-old female patient of Dr. Bill and Dr. Diana with past medical history of coronary artery disease status post CABG in 2011 followed by myocardial infarction, chronic systolic heart failure, valvular heart disease in the form of severe aortic stenosis and moderate to severe tricuspid regurgitation and severe pulmonary hypertension, paroxysmal atrial fibrillation, hypertension, hypertensive cardiovascular disease, hyperlipidemia, chronic kidney disease stage III, anemia of chronic disease, chronic gout diabetes mellitus type 2 insulin requiring, cervical stenosis, chronic back pain, generalized anxiety disorder. 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 Patient's states that yesterday, they were walking into the [employer] parlor and the floor was wet from rain, she walked 5 steps and slipped and fell and subsequently patient complained of right hip pain which was very severe and she was unable to move her right leg. Patient is seen today on the [facility] floor, she continues to have significant pain to the right hip area. Patient came into [facility] emergency center for evaluation and was found to have a right-sided comminuted mildly displaced right intertrochanteric fracture. Chest x-ray reveals stable cardiomegaly. No consolidation, effusion or pneumothorax. Bronchial cuffing over the left upper hemithorax component of hiatal or reactive small airway disease. Left knee x-ray showed no fracture. CAT scan of the brain and cervical spine showed no acute fracture dislocation of the cervical spine, no acute intracranial hemorrhage, mass effect or midline shift. Patient was afebrile, heart rate 67, blood pressure 162/59, pulse ox 97% on room air. EKG was a paced rhythm. WBC 11.7, hemoglobin 10.9, platelet count 112. Electrolytes were normal. BUN 48 creatinine 1.17 which is patient's baseline. Blood sugar 217. Liver function tests were normal. Coronavirus PCR not detected. Patient has been admitted under the care of orthopedics with plan for surgical fixation this afternoon. Cardiology consult in place for clearance. 01/03: Yesterday, patient underwent operative fixation of the right intertrochanteric hip fracture with short intramedullary hip screw. Patient can weight-bear as tolerated on her right leg and recommended doxycycline 100 mg t wice daily due to delayed healing and eliquis was cleared to be resumed by the orthopedic surgeon. Patient will start working with physical therapy and occupational therapy today and discharge plan will be determined. At this time, plan is for home with [facility]NA but if recommendations are for subacute rehab, patient will go to [facility]. She has been afebrile, heart rate 72, blood pressure 122/66, pulse ox 97% on 2 L nasal cannula. Repeat blood work this morning reveals BUN 50, creatinine 1.64. Blood glucose running 282-330. Patient is resumed on her NovoLog 75/25 along with continued on NovoLog scale. 01/04: 50 patient sitting up in bed in no apparent distress, she has poor appetite today, she appears to be a bit short of breath, she continues to be on IV fluid, she appears to have some fluid retention in both lower extremities, we'll decrease IV fluid to KVO, start the patient on Lasix 20 mg IV push every 12 hours, obtain portable chest x-ray, restart the patient on Farxiga 5 mg orall y once every day, physical therapy to work with the patient, the plan distress with the patient to [facility] the morning. REVIEW OF SYSTEMS Constitutional: No fever, no chills, no night sweats. No weight change. No weakness, fatigue or lethargy. No daytime sleepiness. HEENT: No headache. No blurred vision or double vision, no loss of vision. decrease Hearing, no ringing in the ears, no dizziness. No nasal drainage or congestion. No epistaxis. No sore throat. Lungs: No shortness of breath, cough, no sputum production. No wheezing. Cardiovascular: No chest pain, positive for lower extremity edema. No palpitations. No paroxysmal nocturnal dyspnea. positive for orthopnea. No lightheadedness or dizziness. No syncopal episodes. Abdominal: No abdominal pain. No nausea, vomiting. No diarrhea. No constipation. No bloody or tarry stools.. No loss of appetite. Genitourinary: No dysuria, increased frequency, urgency. No urinary retention. Musculoskeletal: No myalgias. positve for muscle weakness, positive for gait dysfunction, no frequent falls. positive for back pain. No neck pain. Right hip pain improved. Integumentary: No wounds, no lesions. No rash or pruritus. No unusual bruising. No change in hair or nails. Neurologic: No aphasia. No facial droop. No change in mentation. No head injury. No headache. No paralysis. No paresthesia. Psychiatric: No depression. minimal anxiety. No mood swings. Endocrine: blood sugars are better PHYSICAL EXAMINATION Gen: This is this is an 85-year-old female. Patient is resting in bed appears to be comfortable and in no acute distress. Family members are at [facility]. HEENT: Head is atraumatic, normocephalic. Pupils equal, round. Sclerae is anicteric. Oral mucous membranes are very dry. NECK: Supple. No JVP. Decreased carotid upstroke bilaterally. No lym phadenopathy. No thyromegaly. LUNGS: Decreased breath sounds at the bases. No wheezes or rhonchi. No intercostal retractions. No accessory muscle usage. HEART: Permanent pacemaker located in the left upper precordium, first heart sound is depressed, second heart sound is normal, there is systolic ejection murmur 3/6 located in the right upper sternal border radiating to the neck ABDOMEN: Soft. Bowel sounds are present. No masses. No tenderness. EXTREMITIES: increased edema in both thighs right more than left. No calf tenderness. Dorsalis pedis +1 bilaterally. NEUROLOGICAL: Patient is awake, alert and oriented x3. Cranial nerves 2 through 12 are grossly intact. Muscle power 4 out of 5 in upper extremities and 3 out of 5 in left lower extremity ASSESSMENT AND PLAN 1. Right intertrochanteric fracture secondary to mechanical fall status post intramedullary hip screw 01/01. Continue current pain management, PT and OT evaluations, incentive spirometry to reduce incidence of atelectasis and hospital-acquired pneumonia, we will continue with Eliquis 2.5 mg orally twice every day for DVT prophylaxis, likely will be transferred to [facility] a Wednesday morning. 2. Thrombocytopenia. Likely transient we'll check CBC today. 3 . Diabetes mellitus type 2 insulin requiring, uncontrolled with hyperglycemia. Hemoglobin A1c 9.6. Patient will be maintained on NovoLog scale before meals and at bedtime, resume NovoLog 75/25 tomorrow morning at 30 units 3 times daily and add Farxiga 5 mg orally daily. 4. History of coronary artery disease status post CABG in 2011 followed by stenting. we will continue with carvedilol 6.25 mg orally twice every day, continue baby aspirin 81 mg once every day, atorvastatin 80 mg once every day. 5. Chronic systolic heart failure. Continue carvedilol 6.25 mg orally twice every day, start the patient Lasix 20 mg IV push every 12 hours, heparin IV, start the patient on Farxiga 5 mg orally daily. 6. Valvular heart disease with severe aortic stenosis, moderate to severe tricuspid regurgitation and severe pulmonary hypertension, continue carvedilol 6.25 mg orally twice every day. 7. Hypertension, hypertensive cardiovascular disease. Continue Coreg 6.25 mg orally twice every day, continue Cardura 4 mg orally once every day, monitor the patient blood pressure very closely. 8. Hyperlipidemia. Continue Lipitor 80 mg orally once every day. 9. paroxysmal atrial for ablation. Continue patient on Eliquis 2.5 mg orally twice every day. 10. Chronic kidney disease stage III. monitor the patient CMP. 11. Anemia of chronic disease. recheck the CBC give the patient iron 12. Chronic gout. Continue allopurinol 100 mg twice daily. 13. DVT prophylaxis. Eliquis. COVID-19 testing negative. 14. medical debility. Physical therapy evaluation. 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 Objective - Vital Signs Vital signs: Vital Signs Temp 97.7 F 01/04/21 08:00 Pulse 63 01/04/21 08:00 Resp 16 01/04/21 08:00 BP 162/69 01/04/21 08:00 Pulse Ox 96 01/04/21 08:00 Intake & Output 01/03/21 01/04/21 01/04/21 18:59 06:59 18:59 Intake Total 400 296 Output Total 400 600 Balance 0 -600 296 Intake: Oral 400 296 Output: Urine 400 600 Other: Voiding Method Indwelling Catheter - Labs CBC & Chem 7: 01/02/21 18:24 01/03/21 08:17 Labs: Abnormal Lab Results - Last 24 Hours (Table) 01/03/21 01/03/21 01/04/21 Range/Units 11:44 20:11 06:57 POC Glucose (mg/dL) 248 H 110 H 141 H (75-99) mg/dL
--- NOTE | 2021-01-04 10:57 | XR ---
EXAMINATION TYPE: XR chest 1V DATE OF EXAM: 01/04/2021 HISTORY: Shortness of breath. COMPARISON: 01/01/2021 TECHNIQUE: Single view of the chest is submitted. FINDINGS: Demonstrated are scattered senescent parenchymal change. There is no evidence for focal infiltrate. The heart is stable. Hilar and mediastinal structures are within normal limits. Degenerative changes are seen of the dorsal spine. IMPRESSION: 1. Chronic changes without evidence for acute pulmonary disease.
[2021-01-04 11:51] LABS: Glucose,Whole Blood 199 mg/dL (75-99)
--- NOTE | 2021-01-04 12:09 | P.PN ---
Subjective Progress Note Date: 01/04/21 Principal diagnosis: Right intertrochanteric hip fracture. Status post close reduction and insertion of intertrochanteric nail right hip. This patient is an 85- year old female who is status-post closed reduction right hip and insertion of right short gamma nail on 01/02/[address] Conroy. Today is post-operative day #2. Patient is seen and examined bedside. She is up to the bedside chair. She states her pain is well-controlled in her hip. Patient denies new complaints or concerns today. Vital signs stable. Objective - Vital Signs Vital signs: Vital Signs Temp 97.7 F 01/04/21 08:00 Pulse 63 01/04/21 08:25 Resp 16 01/04/21 08:25 BP 162/69 01/04/21 08:00 Pulse Ox 96 01/04/21 08:00 Intake & Output 01/03/21 01/04/21 01/04/21 18:59 06:59 18:59 Intake Total 400 296 Output Total 400 600 600 Balance 0 -600 -304 Intake: Oral 400 296 Output: Urine 400 600 600 Other: Voiding Method Indwelling Catheter Indwelling Catheter - Exam This is a pleasant 85-year-old female in no acute distress. She is alert with slight confusion this morning. Dressing is clean, dry and intact. She has full foot and ankle motion without difficulty or pain. Neurovascular status to the lower extremities is intact. - Labs CBC & Chem 7: 01/02/21 18:24 01/03/21 08:17 Labs: Abnormal Lab Results - Last 24 Hours (Table) 01/03/21 01/04/21 01/04/21 Range/Units 20:11 06:57 11:49 POC Glucose (mg/dL) 110 H 141 H 199 H (75-99) mg/dL Assessment and Plan (1) Status post-operative repair of closed fracture of right hip Current Visit: Yes Status: Acute Code(s): Z98.890 - OTHER SPECIFIED POSTPROCEDURAL STATES; Z87.81 - PERSONAL HISTORY OF (HEALED) TRAUMATIC FRACTURE SNOMED Code(s): 570815860 (2) Fall Current Visit: Yes Status: Acute Code(s): W19.XXXA - UNSPECIFIED FALL, INITIAL ENCOUNTER SNOMED Code(s): 7253854 (3) Fracture, intertrochanteric, right femur Current Visit: Yes Status: Acute Code(s): S72.141A - DISPLACED INTERTROCHANTERIC FRACTURE OF RIGHT FEMUR, INIT SNOMED Code(s): 809621854 Plan: The clinical findings are discussed with the patient and her family. We are planning discharge to inpatient rehab on Wednesday. Continue routine orthopedic and medical care.
[2021-01-04 13:02] LABS: Basophils % (A) 0 %; Eosinophils # (A) 0.3 k/uL (0-0.7); Eosinophils % (A) 3 %; Lymphocytes # (A) 1.4 k/uL (1.0-4.8); Lymphocytes % (A) 19 %; MCH 33.7 pg (25.0-35.0); MCHC 31.8 g/dL (31.0-37.0); MCV 105.8 fL (80.0-100.0); Macrocytosis Moderate; Mean Platelet Volume 8.9; Monocytes # (A) 0.6 k/uL (0-1.0); Monocytes % (A) 8 %; Neutrophils % (A) 67 %; Platelet Count 160 k/uL (150-450); RBC 1.89 m/uL (3.80-5.40); RDW 14.5 % (11.5-15.5); WBC 7.5 k/uL (3.8-10.6)
[2021-01-04 13:07] LABS: HGB 6.4 gm/dL (11.4-16.0)
[2021-01-04 13:23] LABS: ALT 126 U/L (4-34); AST 363 U/L (14-36); African American GFR (CKD) 35 (>60 ml/min/1.73 sqM); Albumin 2.5 g/dL (3.5-5.0); Albumin/Globulin Ratio 1.1; Alkaline Phosphatase 59 U/L (38-126); Anion Gap 5 mmol/L; Blood Urea Nitrogen 53 mg/dL (7-17); Calcium 8.2 mg/dL (8.4-10.2); Carbon Dioxide 22 mmol/L (22-30); Chloride 106 mmol/L (98-107); Globulin 2.2 g/dL; Glucose 151 mg/dL (74-99); Non-African American GFR(CKD) 30 (>60 ml/min/1.73 sqM); Sodium 133 mmol/L (137-145); Total Bilirubin 0.4 mg/dL (0.2-1.3); Total Protein 4.7 g/dL (6.3-8.2)
[2021-01-04] MEDS ORDERED: FUROSEMIDE 10 MG/ML 2 ML VIAL IV PRN (13:55)
[2021-01-04 16:44] LABS: Glucose,Whole Blood 197 mg/dL (75-99)
[2021-01-04 20:47] LABS: Glucose,Whole Blood 148 mg/dL (75-99)
[2021-01-04] MEDS: ATORVASTATIN 80 MG TAB PO SCH (21:17)
[2021-01-04] MEDS: SENNOSIDES-DOCUSATE SODIUM 1 EACH TAB PO SCH (21:18)
[2021-01-04] MEDS: FUROSEMIDE 10 MG/ML 2 ML VIAL IV SCH (21:18)
[2021-01-05] MEDS: INSULIN ASPART (NovoLOG) 100 UNIT/ML VIAL SQ SCH ×5 (02:29→21:20)
[2021-01-05] MEDS: SODIUM CHLORIDE 0.9% 1,000 ML IV SCH ×2 (02:30→22:59)
[2021-01-05 06:44] LABS: Glucose,Whole Blood 77 mg/dL (75-99)
[2021-01-05] MEDS: carvediloL 6.25 MG TAB PO SCH ×3 (07:03→18:02)
[2021-01-05] MEDS: INSULN ASP PRT/INSULIN ASPART 100 UNIT/ML 10 ML VIAL SQ SCH ×3 (07:04→18:03)
[2021-01-05] MEDS: APIXABAN 2.5 MG TABLET PO SCH ×2 (07:58→22:57)
[2021-01-05] MEDS: DICYCLOMINE 10 MG CAP PO SCH ×3 (07:58→18:03)
[2021-01-05] MEDS: PANTOPRAZOLE 40 MG TABLET PO SCH (07:58)
[2021-01-05] MEDS: DOXAZOSIN 4 MG TAB PO SCH (07:58)
[2021-01-05] MEDS: FUROSEMIDE 10 MG/ML 2 ML VIAL IV SCH ×2 (07:59→22:59)
[2021-01-05] MEDS: allopurinoL 100 MG TAB PO SCH ×2 (07:59→22:58)
--- NOTE | 2021-01-05 10:44 | P.PN ---
Subjective Progress Note Date: 01/05/21 Principal diagnosis: Right intertrochanteric hip fracture. Status post close reduction and insertion of intertrochanteric nail right hip. This patient is an 85- year old female who is status-post closed reduction right hip and insertion of right short gamma nail on 01/02/[address] Conroy. Today is post-operative day #3. Patient is seen and examined bedside. She is up to the bedside chair. She states her pain is well-controlled in her hip. Patient denies new complaints or concerns today. Vital signs stable. Objective - Vital Signs Vital signs: Vital Signs Temp 98.3 F 01/05/21 07:35 Pulse 60 01/05/21 07:40 Resp 18 01/05/21 07:40 BP 183/76 01/05/21 07:35 Pulse Ox 95 01/05/21 07:35 Intake & Output 01/04/21 01/05/21 01/05/21 18:59 06:59 18:59 Intake Total 768 310 Output Total 800 1500 1500 Balance -32 -1190 -1500 Intake: Oral 768 Blood Product 0 310 Rc As-1 Unit 0 310 [id number] Output: Urine 800 1500 1500 Other: Voiding Method Indwelling Catheter Indwelling Catheter Indwelling Catheter - Exam This is a pleasant 85-year-old female in no acute distress. She is alert with slight confusion this morning. Dressing is clean, dry and intact. She has full foot and ankle motion without difficulty or pain. Neurovascular status to the lower extremities is intact. - Labs CBC & Chem 7: 01/04/21 12:53 01/04/21 12:53 Labs: Abnormal Lab Results - Last 24 Hours (Table) 01/04/21 01/04/21 01/04/21 Range/Units 11:49 12:53 12:53 RBC 1.89 L (3.80-5.40) m/uL Hgb 6.4 L* D (11.4-16.0) gm/dL Hct 20.0 L (34.0-46.0) % MCV 105.8 H (80.0-100.0) fL Sodium 133 L (137-145) mmol/L BUN 53 H (7-17) mg/dL Creatinine 1.57 H (0.52-1.04) mg/dL Glucose 151 H (74-99) mg/dL POC Glucose (mg/dL) 199 H (75-99) mg/dL Calcium 8.2 L (8.4-10.2) mg/dL AST 363 H (14-36) U/L ALT 126 H (4-34) U/L Total Protein 4.7 L (6.3-8.2) g/dL Albumin 2.5 L (3.5-5.0) g/dL Crossmatch 01/04/21 01/04/21 01/04/21 Range/Units 14:51 16:43 20:45 RBC (3.80-5.40) m/uL Hgb (11.4-16.0) gm/dL Hct (34.0-46.0) % MCV (80.0-100.0) fL Sodium (137-145) mmol/L BUN (7-17) mg/dL Creatinine (0.52-1.04) mg/dL Glucose (74-99) mg/dL POC Glucose (mg/dL) 197 H 148 H (75-99) mg/dL Calcium (8.4-10.2) mg/dL AST (14-36) U/L ALT (4-34) U/L Total Protein (6.3-8.2) g/dL Albumin (3.5-5.0) g/dL Crossmatch See Detail Assessment and Plan (1) Status post-operative repair of closed fracture of right hip Current Visit: Yes Status: Acute Code(s): Z98.890 - OTHER SPECIFIED POSTPROCEDURAL STATES; Z87.81 - PERSONAL HISTORY OF (HEALED) TRAUMATIC FRACTURE SNOMED Code(s): 397586077 (2) Fall Current Visit: Yes Status: Acute Code(s): W19.XXXA - UNSPECIFIED FALL, INITIAL ENCOUNTER SNOMED Code(s): 1162430 (3) Fracture, intertrochanteric, right femur Current Visit: Yes Status: Acute Code(s): S72.141A - DISPLACED INTERTROCHANTERIC FRACTURE OF RIGHT FEMUR, INIT SNOMED Code(s): 607527896 Plan: The clinical findings are discussed with the patient and her family. We are planning discharge to inpatient rehab on Wednesday. Continue routine orthopedic and medical care.
--- NOTE | 2021-01-05 10:51 | P.PN ---
Subjective Progress Note Date: 01/05/21 Progress Note Date: 01/05/21 HISTORY OF PRESENT ILLNESS This is an 85-year-old female patient of Dr. Bill and Dr. Diana with past medical history of coronary artery disease status post CABG in 2011 followed by myocardial infarction, chronic systolic heart failure, valvular heart disease in the form of severe aortic stenosis and moderate to severe tricuspid regurgitation and severe pulmonary hypertension, paroxysmal atrial fibrillation, hypertension, hypertensive cardiovascular disease, hyperlipidemia, chronic kidney disease stage III, anemia of chronic disease, chronic gout diabetes mellitus type 2 insulin requiring, cervical stenosis, chronic back pain, generalized anxiety disorder. 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 Patient's states that yesterday, they were walking into the [employer] parlor and the floor was wet from rain, she walked 5 steps and slipped and fell and subsequently patient complained of right hip pain which was very severe and she was unable to move her right leg. Patient is seen today on the [facility] floor, she continues to have significant pain to the right hip area. Patient came into [facility] emergency center for evaluation and was found to have a right-sided comminuted mildly displaced right intertrochanteric fracture. Chest x-ray reveals stable cardiomegaly. No consolidation, effusion or pneumothorax. Bronchial cuffing over the left upper hemithorax component of hiatal or reactive small airway disease. Left knee x-ray showed no fracture. CAT scan of the brain and cervical spine showed no acute fracture dislocation of the cervical spine, no acute intracranial hemorrhage, mass effect or midline shift. Patient was afebrile, heart rate 67, blood pressure 162/59, pulse ox 97% on room air. EKG was a paced rhythm. WBC 11.7, hemoglobin 10.9, platelet count 112. Electrolytes were normal. BUN 48 creatinine 1.17 which is patient's baseline. Blood sugar 217. Liver function tests were normal. Coronavirus PCR not detected. Patient has been admitted under the care of orthopedics with plan for surgical fixation this afternoon. Cardiology consult in place for clearance. 01/03: Yesterday, patient underwent operative fixation of the right intertrochanteric hip fracture with short intramedullary hip screw. Patient can weight-bear as tolerated on her right leg and recommended doxycycline 100 mg t wice daily due to delayed healing and eliquis was cleared to be resumed by the orthopedic surgeon. Patient will start working with physical therapy and occupational therapy today and discharge plan will be determined. At this time, plan is for home with [facility] but if recommendations are for subacute rehab, patient will go to [facility]. She has been afebrile, heart rate 72, blood pressure 122/66, pulse ox 97% on 2 L nasal cannula. Repeat blood work this morning reveals BUN 50, creatinine 1.64. Blood glucose running 282-330. Patient is resumed on her NovoLog 75/25 along with continued on NovoLog scale. 01/04: patient sitting up in bed in no apparent distress, she has poor appetite today, she appears to be a bit short of breath, she continues to be on IV fluid, she appears to have some fluid retention in both lower extremities, we'll decrease IV fluid to KVO, start the patient on Lasix 20 mg IV push every 12 hours, obtain portable chest x-ray, restart the patient on Farxiga 5 mg orally once every day, physical therapy to work with the patient, the plan distress with the patient to [facility] the morning. 01/05: Patient hemoglobin did drop yesterday to 6.4 type and cross and transfuse 1 unit of packed red blood cells was done, recheck the patient hemoglobin today, continue current pain management, this continue IV fluid, continue IV Lasix, follow up with the patient very closely, the plan is possibly transfer the patient to [facility] tomorrow morning if her hemoglobin is stable. REVIEW OF SYSTEMS Constitutional: No fever, no chills, no night sweats. No weight change. No weakness, fatigue or lethargy. No daytime sleepiness. HEENT: No headache. No blurred vision or double vision, no loss of vision. decrease Hearing, no ringing in the ears, no dizziness. No nasal drainage or congestion. No epistaxis. No sore throat. Lungs: No shortness of breath, cough, no sputum production. No wheezing. Cardiovascular: No chest pain, positive for lower extremity edema. No palpitations. No paroxysmal nocturnal dyspnea. positive for orthopnea. No lightheadedness or dizziness. No syncopal episodes. Abdominal: No abdominal pain. No nausea, vomiting. No diarrhea. No constipation. No bloody or tarry stools.. No loss of appetite. Genitourinary: No dysuria, increased frequency, urgency. No urinary retention. Musculoskeletal: No myalgias. positve for muscle weakness, positive for gait dysfunction, no frequent falls. positive for back pain. No neck pain. Right hip pain improved. Integumentary: No wounds, no lesions. No rash or pruritus. No unusual bruising. No change in hair or nails. Neurologic: No aphasia. No facial droop. No change in mentation. No head injury. No headache. No paralysis. No paresthesia. Psychiatric: No depression. minimal anxiety. No mood swings. Endocrine: blood sugars are better PHYSICAL EXAMINATION Gen: This is this is an 85-year-old female. Patient is resting in bed appears to be comfortable and in no acute distress. Family members are at bedside. HEENT: Head is atraumatic, normocephalic. Pupils equal, round. Sclerae is anicteric. Oral mucous membranes are very dry. NECK: Supple. No JVP. Decreased carotid upstroke bilaterally. No lymphadenopathy. No thyromegaly. LUNGS: Decreased breath sounds at the bases. No wheezes or rhonchi. No intercostal retractions. No accessory muscle usage. HEART: Permanent pacemaker located in the left upper precordium, first heart sound is depressed, second heart sound is normal, there is systolic ejection murmur 3/6 located in the right upper sternal border radiating to the neck ABDOMEN: Soft. Bowel sounds are present. No masses. No tenderness. EXTREMITIES: increased edema in both thighs right more than left. No calf tenderness. Dorsalis pedis +1 bilaterally. NEUROLOGICAL: Patient is awake, alert and oriented x3. Cranial nerves 2 through 12 are grossly intact. Muscle power 4 out of 5 in upper extremities and 3 out of 5 in left lower extremity ASSESSMENT AND PLAN 1. Right intertrochanteric fracture secondary to mechanical fall status post intramedullary hip screw 01/01. Continue current pain management, PT and OT evaluations, incentive spirometry to reduce incidence of atelectasis and hospital-acquired pneumonia, we will continue with Eliquis 2.5 mg orally twice every day for DVT prophylaxis, likely will be transferred to [facility] a Wednesday morning. 2. Acute blood loss anemia status post type and cross and transfuse 1 unit of packed red blood cells. Recheck CBC today 3 . Diabetes mellitus type 2 insulin requiring, uncontrolled with hyperglycemia. Hemoglobin A1c 9.6. Patient will be maintained on NovoLog scale before meals and at bedtime, resume NovoLog 75/25 tomorrow morning at 30 units 3 times daily and add Farxiga 5 mg orally daily. 4. History of coronary artery disease status post CABG in 2011 followed by stenting. we will continue with carvedilol 6.25 mg orally twice every day, continue baby aspirin 81 mg once every day, atorvastatin 80 mg once every day. 5. Chronic systolic heart failure. Continue carvedilol 6.25 mg orally twice every day, start the patient Lasix 20 mg IV push every 12 hours, heparin IV, start the patient on Farxiga 5 mg orally daily. 6. Valvular heart disease with severe aortic stenosis, moderate to severe tricuspid regurgitation and severe pulmonary hypertension, continue carvedilol 6.25 mg orally twice every day. 7. Hypertension, hypertensive cardiovascular disease. Continue Coreg 6.25 mg orally twice every day, continue Cardura 4 mg orally once every day, monitor the patient blood pressure very closely. 8. Hyperlipidemia. Continue Lipitor 80 mg orally once every day. 9. paroxysmal atrial for ablation. Continue patient on Eliquis 2.5 mg orally twice every day. 10. Chronic kidney disease stage III. monitor the patient CMP. 11. Anemia of chronic disease. recheck the CBC 12. Chronic gout. Continue allopurinol 100 mg twice daily. 13. DVT prophylaxis. Eliquis. COVID-19 testing negative. 14. medical debility. Physical therapy evaluation. 15. 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 Objective - Vital Signs Vital signs: Vital Signs Temp 98.3 F 01/05/21 07:35 Pulse 60 01/05/21 07:40 Resp 18 01/05/21 07:40 BP 183/76 01/05/21 07:35 Pulse Ox 95 01/05/21 07:35 Intake & Output 01/04/21 01/05/21 01/05/21 18:59 06:59 18:59 Intake Total 768 310 Output Total 800 1500 1500 Balance -32 -7025 -1500 Intake: Oral 768 Blood Product 0 310 Rc As-1 Unit 0 310 [id number] Output: Urine 800 1500 1500 Other: Voiding Method Indwelling Catheter Indwelling Catheter Indwelling Catheter - Labs CBC & Chem 7: 01/04/21 12:53 01/04/21 12:53 Labs: Abnormal Lab Results - Last 24 Hours (Table) 01/04/21 01/04/21 01/04/21 Range/Units 11:49 12:53 12:53 RBC 1.89 L (3.80-5.40) m/uL Hgb 6.4 L* D (11.4-16.0) gm/dL Hct 20.0 L (34.0-46.0) % MCV 105.8 H (80.0-100.0) fL Sodium 133 L (137-145) mmol/L BUN 53 H (7-17) mg/dL Creatinine 1.57 H (0.52-1.04) mg/dL Glucose 151 H (74-99) mg/dL POC Glucose (mg/dL) 199 H (75-99) mg/dL Calcium 8.2 L (8.4-10.2) mg/dL AST 363 H (14-36) U/L ALT 126 H (4-34) U/L Total Protein 4.7 L (6.3-8.2) g/dL Albumin 2.5 L (3.5-5.0) g/dL Crossmatch 01/04/21 01/04/21 01/04/21 Range/Units 14:51 16:43 20:45 RBC (3.80-5.40) m/uL Hgb (11.4-16.0) gm/dL Hct (34.0-46.0) % MCV (80.0-100.0) fL Sodium (137-145) mmol/L BUN (7-17) mg/dL Creatinine (0.52-1.04) mg/dL Glucose (74-99) mg/dL POC Glucose (mg/dL) 197 H 148 H (75-99) mg/dL Calcium (8.4-10.2) mg/dL AST (14-36) U/L ALT (4-34) U/L Total Protein (6.3-8.2) g/dL Albumin (3.5-5.0) g/dL Crossmatch See Detail
[2021-01-05 11:10] LABS: Anisocytosis Slight; Basophils % (A) 0 %; Eosinophils # (A) 0.4 k/uL (0-0.7); Eosinophils % (A) 5 %; HCT 23.2 % (34.0-46.0); Lymphocytes # (A) 1.4 k/uL (1.0-4.8); Lymphocytes % (A) 17 %; MCH 33.4 pg (25.0-35.0); Macrocytosis Slight; Mean Platelet Volume 11.7; Monocytes # (A) 0.7 k/uL (0-1.0); Monocytes % (A) 9 %; Neutrophils # (A) 5.7 k/uL (1.3-7.7); Neutrophils % (A) 68 %; Platelet Count 190 k/uL (150-450); RBC 2.36 m/uL (3.80-5.40); RDW 16.6 % (11.5-15.5); WBC 8.4 k/uL (3.8-10.6)
[2021-01-05 11:18] LABS: HGB 7.9 gm/dL (11.4-16.0)
[2021-01-05 11:19] LABS: MCV 98.2 fL (80.0-100.0)
[2021-01-05 11:35] LABS: Glucose,Whole Blood 204 mg/dL (75-99)
[2021-01-05 12:53] LABS: African American GFR (CKD) 43.6 (60.0-200.0); Albumin 2.9 g/dL (3.80-4.90); Albumin/Globulin Ratio 1.93 (1.60-3.17); Anion Gap 1.2 mmol/L (4.00-12.00); BUN/Creat Ratio 34.62 Ratio (12.00-20.00); Calcium 8.2 mg/dL (8.7-10.3); Carbon Dioxide 27.8 mmol/L (21.6-31.8); Globulin 1.5 g/dL (1.6-3.3); Non-African American GFR(CKD) 37.6 (60.0-200.0); Potassium 3.9 mmol/L (3.5-5.5); Total Bilirubin 0.6 mg/dL (0.3-1.2); Total Protein 4.4 g/dL (6.2-8.2)
[2021-01-05 16:27] LABS: Glucose,Whole Blood 139 mg/dL (75-99)
[2021-01-05 20:18] LABS: Glucose,Whole Blood 82 mg/dL (75-99)
[2021-01-05 22:54] LABS: Glucose,Whole Blood 76 mg/dL (75-99)
[2021-01-05] MEDS: ATORVASTATIN 80 MG TAB PO SCH (22:55)
[2021-01-05] MEDS: HYDROcodone/APAP 5-325MG 1 EACH TAB PO PRN (22:56)
[2021-01-05] MEDS: SENNOSIDES-DOCUSATE SODIUM 1 EACH TAB PO SCH (22:57)
[2021-01-06] MEDS: HYDROcodone/APAP 5-325MG 1 EACH TAB PO PRN ×3 (03:29→21:44)
[2021-01-06 06:38] LABS: Glucose,Whole Blood 108 mg/dL (75-99)
[2021-01-06] MEDS: LACTATED RINGERS 1,000 ML IV SCH ×2 (06:57→07:07)
[2021-01-06] MEDS: INSULIN ASPART (NovoLOG) 100 UNIT/ML VIAL SQ SCH ×4 (07:54→21:34)
[2021-01-06] MEDS: INSULN ASP PRT/INSULIN ASPART 100 UNIT/ML 10 ML VIAL SQ SCH ×3 (08:00→16:16)
[2021-01-06] MEDS: carvediloL 6.25 MG TAB PO SCH ×2 (08:00→17:09)
[2021-01-06] MEDS: DOXAZOSIN 4 MG TAB PO SCH (08:00)
[2021-01-06] MEDS: PANTOPRAZOLE 40 MG TABLET PO SCH (08:00)
[2021-01-06] MEDS: DICYCLOMINE 10 MG CAP PO SCH ×3 (08:00→17:09)
[2021-01-06] MEDS: FUROSEMIDE 10 MG/ML 2 ML VIAL IV SCH (08:00)
[2021-01-06] MEDS: allopurinoL 100 MG TAB PO SCH ×2 (08:00→21:35)
[2021-01-06] MEDS: APIXABAN 2.5 MG TABLET PO SCH ×2 (08:00→21:35)
--- NOTE | 2021-01-06 09:25 | P.DS ---
Providers Date of admission: 01/01/21 17:38 Expected date of discharge: 01/06/21 Attending physician: Fer Conroy Consults: 01/01/21 17:38 Consult Physician Urgent Consulting Provider: Leela Bill Consult Reason/Comments: Medical care Do you want consulting provider notified?: Already Contacted 01/01/21 17:39 Consult Physician Urgent Consulting Provider: Shital Field Consult Reason/Comments: Surgical clearance, aortic stenosis Do you want consulting provider notified?: Yes Primary care physician: Leela Bill [facility] Course: This is an 85- year-old female who presented to [facility] ED on 01/01/21 after falling and sustaining injury to the right hip. On exam and x-ray in the emergency department she was found to have a right intertrochanteric hip fracture. The patient was admitted under the care of Dr. Conroy for surgical intervention and care, with a consultation placed to internal medicine for perioperative medical management. The patient is taken to surgery for closed reduction and insertion of right short intramedullary hip screw on 01/02/21. The procedure is performed without complication or sequelae. The patient is doing well postoperatively. Vital signs are stable on postop day #4. Patient is seen and examined bedside this morning. She states her pain in her right hip is well-controlled. She is tolerating her diet well. Her Echavarria catheter is still in place at this time. She did have a bowel movement yesterday per her . She denies chest pain, shortness breath, nausea, vomiting, fevers, chills. She denies numbness or tingling of the right lower extremity. No new complaints or concerns today. Vital signs stable. On examination, the patient is sitting up in bed in no apparent distress. She is alert and oriented, answers questions appropriately. On inspection of her right hip, there are clean, dry, intact surgical dressings in place. Small amount of drainage visible on proximal dressing. The right lower extremity is warm and well-perfused with brisk capillary refill distally. Motor and sensory function intact right lower extremity. Compression cuffs in place bilaterally. The patient is discharged to subacute rehab today, pending medical clearance today. Please refer to the med rec for accurate list of medications. Plan - Discharge Summary Discharge Rx Participant: No New Discharge Prescriptions: New Docusate [Colace] 100 mg PO BID #60 cap HYDROcodone/APAP 5-325MG [Rueter 5-325] 1 tab PO Q8HR PRN 7 Days #21 tab PRN Reason: Pain Doxycycline Monohydrate 100 mg PO BID 30 Days #60 cap No Action Allopurinol 100 mg PO BID Atorvastatin [Lipitor] 80 mg PO HS Doxazosin [Cardura] 4 mg PO DAILY carvediloL [Coreg] 6.25 mg PO BID-W/MEALS #60 tab Furosemide [Lasix] 40 mg PO BID #60 tab Nitroglycerin Sl Tabs [Nitrostat] 0.4 mg SUBLINGUAL Q5M PRN PRN Reason: Chest Pain Dicyclomine [Bentyl] 10 mg PO TID-W/MEALS Apixaban [Eliquis] 2.5 mg PO BID Dapagliflozin Propanediol [Farxiga] 5 mg PO DAILY Insulin NPL/Insulin Lispro [humaLOG MIX 75-25 VIAL] 30 unit SQ AC-TID Discharge Medication List Allopurinol 100 mg PO BID 03/05/14 [History] Atorvastatin [Lipitor] 80 mg PO HS 09/24/14 [History] Doxazosin [Cardura] 4 mg PO DAILY 12/10/18 [History] carvediloL [Coreg] 6.25 mg PO BID-W/MEALS #60 tab 09/19/19 [Rx] Furosemide [Lasix] 40 mg PO BID #60 tab 09/26/19 [Rx] Apixaban [Eliquis] 2.5 mg PO BID 01/01/21 [History] Dapagliflozin Propanediol [Farxiga] 5 mg PO DAILY 01/01/21 [History] Dicyclomine [Bentyl] 10 mg PO TID-W/MEALS 01/01/21 [History] Insulin NPL/Insulin Lispro [humaLOG MIX 75-25 VIAL] 30 unit SQ AC-TID 01/01/21 [History] Nitroglycerin Sl Tabs [Nitrostat] 0.4 mg SUBLINGUAL Q5M PRN 01/01/21 [History] Docusate [Colace] 100 mg PO BID #60 cap 01/03/21 [Rx] Doxycycline Monohydrate 100 mg PO BID 30 Days #60 cap 01/03/21 [Rx] HYDROcodone/APAP 5-325MG [Rueter 5-325] 1 tab PO Q8HR PRN 7 Days #21 tab 01/03/21 [Rx] Follow up Appointment(s)/Referral(s): Leela Bill MD [Primary Care Provider] - 1-2 days Demetrius Diana MD [STAFF PHYSICIAN] - 01/17/21 2:30 pm Fer Conroy MD [Medical Doctor] - 1 Week Activity/Diet/Wound Care/Special Instructions: Weight bear to tolerance on operative extremity with a walker. Take pain medications as prescribed. Take antibiotics as prescribed. Resume Eliquis for DVT prophylaxis. Follow-up in the office in one week following discharge. Call the office with any questions or concerns, Discharge Disposition: TRANSFER TO SNF/ECF
[2021-01-06 11:06] LABS: Anisocytosis Slight; Basophils % (A) 0 %; Eosinophils # (A) 0.4 k/uL (0-0.7); Eosinophils % (A) 6 %; HCT 24.7 % (34.0-46.0); HGB 8.2 gm/dL (11.4-16.0); Lymphocytes # (A) 1.4 k/uL (1.0-4.8); Lymphocytes % (A) 20 %; MCH 33.6 pg (25.0-35.0); MCHC 33.3 g/dL (31.0-37.0); Macrocytosis Slight; Mean Platelet Volume 9.5; Monocytes # (A) 0.5 k/uL (0-1.0); Monocytes % (A) 7 %; Neutrophils # (A) 4.5 k/uL (1.3-7.7); Neutrophils % (A) 64 %; Platelet Count 228 k/uL (150-450); RBC 2.45 m/uL (3.80-5.40); RDW 16.6 % (11.5-15.5); WBC 6.9 k/uL (3.8-10.6)
[2021-01-06 11:27] LABS: Glucose,Whole Blood 102 mg/dL (75-99)
--- NOTE | 2021-01-06 14:18 | CDI ---
Documentation Clarification Form Date: 01/06/2021 02:07:41 PM From: Jessica Senior CCS, CCDS Admit Date: 01/01/2021 05:38:00 PM Patient Name: Rochelle Sainz Visit Number: [id number] Discharge Date: ATTENTION: The Clinical Documentation Specialists (CDI) and [facility] Coding Staff appreciate your assistance in clarifying documentation. Please respond to the clarification below the line at the bottom and electronically sign. The CDI & [facility] Coding staff will review the response and follow-up if needed. Please note: Queries are made part of the Legal Health Record. If you have any questions, please contact the author of this message via ITS. Dr. Leela Bill: Acute Blood Loss Anemia status post Type & Cross and Transfuse 1 unit PRBCs is documented in the 01/05 Medical Management Progress Note. Additional clarification is requested regarding the relationship, if any, that exists between the diagnosis and the procedure. Patients Admitting Diagnosis 01/02: Right comminuted peritrochanteric fracture. Post-Operative Diagnosis: Same Procedure performed 01/02: ORIF Intertrochanteric hip fracture with short IM hip screw. History/Risk Factors per the 01/02 Medical Management Consult: Paroxysmal Atrial Fibrillation on Eliquis, Moderate to severe Aortic stenosis, Pacemaker for high degree AV block, CAD status post CABG, CHF, Hypertension, CKD, GERD, DM II & Hyperlipidemia. Clinical Indicators: Presented to the ED on 01/01 after a fall, complaining of right hip pain. ED Clinical Impression: Fall, Rt Femur Intertrochanteric Fracture 01/01 Hgb: 10.9, 01/02: 9.7, 01/04: 6.4, 01.05: 7.9, 01/06: 8.2 01/01 Hct: 33.4, 01/02: 30.7, 01/04: 20.0, 01/05: 23.2, 01/06: 24.7 Treatment 01/01: IV Dilaudid 0.5 mg x2, IV Dilaudid 1 mg q3Hr prn, IV Na Cl 1,000 mls @ 75 mls/hr q13Hr, IV Na Cl 1,000 mls @ 20 mls/hr q24H, IV Protonix, IV Cefazolin. 01/04: IV Lasix, Transfusion 1 unit PRBCs. What relationship, if any, exists between the diagnosis of Acute Blood Loss Anemia and the procedure: [ ] Acute Blood Loss Anemia is a complication of surgical procedure [ ] Acute Blood Loss Anemia is an expected outcome of the surgical procedure [ ] Acute Blood Loss Anemia is related to patients co-morbid condition(s), please specify: & is not a complication of the procedure [ ] Other please specify: [ ] Unable to determine (Template Last Revised: June 2020) MTDD
[2021-01-06] MEDS: SODIUM CHLORIDE 0.9% 1,000 ML IV SCH (16:18)
[2021-01-06 16:20] LABS: Glucose,Whole Blood 56 mg/dL (75-99)
[2021-01-06 16:32] LABS: Glucose,Whole Blood 52 mg/dL (75-99)
[2021-01-06 16:49] LABS: Glucose,Whole Blood 56 mg/dL (75-99)
[2021-01-06 17:02] LABS: Glucose,Whole Blood 64 mg/dL (75-99)
[2021-01-06 17:19] LABS: Glucose,Whole Blood 72 mg/dL (75-99)
[2021-01-06 20:49] LABS: Glucose,Whole Blood 87 mg/dL (75-99)
[2021-01-06] MEDS: SENNOSIDES-DOCUSATE SODIUM 1 EACH TAB PO SCH (21:35)
[2021-01-06] MEDS: ATORVASTATIN 80 MG TAB PO SCH (21:35)
[2021-01-07] MEDS: HYDROcodone/APAP 5-325MG 1 EACH TAB PO PRN ×2 (04:33→14:56)
[2021-01-07 06:57] LABS: Glucose,Whole Blood 109 mg/dL (75-99)
[2021-01-07] MEDS: INSULIN ASPART (NovoLOG) 100 UNIT/ML VIAL SQ SCH ×2 (07:21→11:54)
[2021-01-07] MEDS: INSULN ASP PRT/INSULIN ASPART 100 UNIT/ML 10 ML VIAL SQ SCH ×2 (07:21→11:52)
[2021-01-07] MEDS: DICYCLOMINE 10 MG CAP PO SCH ×2 (07:25→11:54)
[2021-01-07] MEDS: DOXAZOSIN 4 MG TAB PO SCH (07:25)
[2021-01-07] MEDS: allopurinoL 100 MG TAB PO SCH (07:25)
[2021-01-07] MEDS: APIXABAN 2.5 MG TABLET PO SCH (07:25)
[2021-01-07] MEDS: carvediloL 6.25 MG TAB PO SCH (07:25)
[2021-01-07] MEDS: PANTOPRAZOLE 40 MG TABLET PO SCH (07:25)
[2021-01-07 08:12] VITALS: BP 154/71; PULSE 60; RESP 18; TEMP 98.2
[2021-01-07] MEDS ORDERED: FUROSEMIDE 40 MG TAB PO SCH (09:00)
[2021-01-07 11:42] LABS: Glucose,Whole Blood 173 mg/dL (75-99)
--- NOTE | 2021-01-07 15:11 | P.PN ---
Subjective Progress Note Date: 01/06/21 Progress Note Date: 01/05/21 HISTORY OF PRESENT ILLNESS This is an 85-year-old female patient of Dr. Bill and Dr. Diana with past medical history of coronary artery disease status post CABG in 2011 followed by myocardial infarction, chronic systolic heart failure, valvular heart disease in the form of severe aortic stenosis and moderate to severe tricuspid regurgitation and severe pulmonary hypertension, paroxysmal atrial fibrillation, hypertension, hypertensive cardiovascular disease, hyperlipidemia, chronic kidney disease stage III, anemia of chronic disease, chronic gout diabetes mellitus type 2 insulin requiring, cervical stenosis, chronic back pain, generalized anxiety disorder. 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 Patient's states that yesterday, they were walking into the [employer] par[employer] and the floor was wet from rain, she walked 5 steps and slipped and fell and subsequently patient complained of right hip pain which was very severe and she was unable to move her right leg. Patient is seen today on the [facility] floor, she continues to have significant pain to the right hip area. Patient came into [facility] emergency center for evaluation and was found to have a right-sided comminuted mildly displaced right intertrochanteric fracture. Chest x-ray reveals stable cardiomegaly. No consolidation, effusion or pneumothorax. Bronchial cuffing over the left upper hemithorax component of hiatal or reactive small airway disease. Left knee x-ray showed no fracture. CAT scan of the brain and cervical spine showed no acute fracture dislocation of the cervical spine, no acute intracranial hemorrhage, mass effect or midline shift. Patient was afebrile, heart rate 67, blood pressure 162/59, pulse ox 97% on room air. EKG was a paced rhythm. WBC 11.7, hemoglobin 10.9, platelet count 112. Electrolytes were normal. BUN 48 creatinine 1.17 which is patient's baseline. Blood sugar 217. Liver function tests were normal. Coronavirus PCR not detected. Patient has been admitted under the care of orthopedics with plan for surgical fixation this afternoon. Cardiology consult in place for clearance. 01/03: Yesterday, patient underwent operative fixation of the right intertrochanteric hip fracture with short intramedullary hip screw. Patient can weight-bear as tolerated on her right leg and recommended doxycycline 100 mg t wice daily due to delayed healing and eliquis was cleared to be resumed by the orthopedic surgeon. Patient will start working with physical therapy and occupational therapy today and discharge plan will be determined. At this time, plan is for home with [facility] but if recommendations are for subacute rehab, patient will go to [facility]. She has been afebrile, heart rate 72, blood pressure 122/66, pulse ox 97% on 2 L nasal cannula. Repeat blood work this morning reveals BUN 50, creatinine 1.64. Blood glucose running 282-330. Patient is resumed on her NovoLog 75/25 along with continued on NovoLog scale. 01/04: patient sitting up in bed in no apparent distress, she has poor appetite today, she appears to be a bit short of breath, she continues to be on IV fluid, she appears to have some fluid retention in both lower extremities, we'll decrease IV fluid to KVO, start the patient on Lasix 20 mg IV push every 12 hours, obtain portable chest x-ray, restart the patient on Farxiga 5 mg orally once every day, physical therapy to work with the patient, the plan distress with the patient to [facility] the morning. 01/05: Patient hemoglobin did drop yesterday to 6.4 type and cross and transfuse 1 unit of packed red blood cells was done, recheck the patient hemoglobin today, continue current pain management, this continue IV fluid, continue IV Lasix, follow up with the patient very closely, the plan is possibly transfer the patient to [facility] tomorrow morning if her hemoglobin is stable. 01/06: Pain to the right hip has been controlled. Patient did have a bowel movement yesterday. Echavarria catheter in place Be removed prior to discharge. Vital signs are stable. Hemoglobin today at 8.2 and patient is status post 1 unit packed RBCs. Blood sugars controlled. Patient is scheduled for transfer to [facility] for subacute rehab today. REVIEW OF SYSTEMS Constitutional: No fever, no chills, no night sweats. No weight change. No weakness, fatigue or lethargy. No daytime sleepiness. HEENT: No headache. No blurred vision or double vision, no loss of vision. dec rease Hearing, no ringing in the ears, no dizziness. No nasal drainage or congestion. No epistaxis. No sore throat. Lungs: No shortness of breath, cough, no sputum production. No wheezing. Cardiovascular: No chest pain, positive for lower extremity edema. No palpitations. No paroxysmal nocturnal dyspnea. positive for orthopnea. No lightheadedness or dizziness. No syncopal episodes. Abdominal: No abdominal pain. No nausea, vomiting. No diarrhea. No constipation. No bloody or tarry stools.. No loss of appetite. Genitourinary: No dysuria, increased frequency, urgency. No urinary retention. Musculoskeletal: No myalgias. positve for muscle weakness, positive for gait dysfunction, no frequent falls. positive for back pain. No neck pain. Right hip pain improved. Integumentary: No wounds, no lesions. No rash or pruritus. No unusual bruising. No change in hair or nails. Neurologic: No aphasia. No facial droop. No change in mentation. No head injury. No headache. No paralysis. No paresthesia. Psychiatric: No depression. minimal anxiety. No mood swings. Endocrine: blood sugars are better PHYSICAL EXAMINATION Gen: This is this is an 85-year-old female. Patient is resting in bed appears to be comfortable and in no acute distress. Family members are at bedside. HEENT: Head is atraumatic, normocephalic. Pupils equal, round. Sclerae is anicteric. Oral mucous membranes are very dry. NECK: Supple. No JVP. Decreased carotid upstroke bilaterally. No lymphadenopathy. No thyromegaly. LUNGS: Decreased breath sounds at the bases. No wheezes or rhonchi. No intercostal retractions. No accessory muscle usage. HEART: Permanent pacemaker located in the left upper precordium, first heart sound is depressed, second heart sound is normal, there is systolic ejection murmur 3/6 located in the right upper sternal border radiating to the neck ABDOMEN: Soft. Bowel sounds are present. No masses. No tenderness. EXTREMITIES: increased edema in both thighs right more than left. No calf tenderness. Dorsalis pedis +1 bilaterally. NEUROLOGICAL: Patient is awake, alert and oriented x3. Cranial nerves 2 through 12 are grossly intact. Muscle power 4 out of 5 in upper extremities and 3 out of 5 in left lower extremity ASSESSMENT AND PLAN 1. Right intertrochanteric fracture secondary to mechanical fall status post intramedullary hip screw 01/01. Continue current pain management, PT and OT evaluations, incentive spirometry to reduce incidence of atelectasis and hospital-acquired pneumonia, we will continue with Eliquis 2.5 mg orally twice every day for DVT prophylaxis, likely will be transferred to [facility] today. 2. Acute blood loss anemia expected with fracture and surgery status post type and cross and transfuse 1 unit of packed red blood cells. Recheck CBC today 3 . Diabetes mellitus type 2 insulin requiring, uncontrolled with hyperglycemia. Hemoglobin A1c 9.6. Patient will be maintained on NovoLog scale before meals and at bedtime, resume NovoLog 75/25 tomorrow morning at 30 units 3 times daily and add Farxiga 5 mg orally daily. 4. History of coronary artery disease status post CABG in 2011 followed by stenting. we will continue with carvedilol 6.25 mg orally twice every day, co ntinue baby aspirin 81 mg once every day, atorvastatin 80 mg once every day. 5. Chronic systolic heart failure. Continue carvedilol 6.25 mg orally twice every day, start the patient Lasix 20 mg IV push every 12 hours, heparin IV, start the patient on Farxiga 5 mg orally daily. 6. Valvular heart disease with severe aortic stenosis, moderate to severe tricuspid regurgitation and severe pulmonary hypertension, continue carvedilol 6.25 mg orally twice every day. 7. Hypertension, hypertensive cardiovascular disease. Continue Coreg 6.25 mg orally twice every day, continue Cardura 4 mg orally once every day, monitor the patient blood pressure very closely. 8. Hyperlipidemia. Continue Lipitor 80 mg orally once every day. 9. paroxysmal atrial for ablation. Continue patient on Eliquis 2.5 mg orally twice every day. 10. Chronic kidney disease stage III. monitor the patient CMP. 11. Anemia of chronic disease. recheck the CBC 12. Chronic gout. Continue allopurinol 100 mg twice daily. 13. DVT prophylaxis. Eliquis. COVID-19 testing negative. 14. medical debility. Physical therapy evaluation. 15. Medically stable for discharge Objective - Vital Signs Vital signs: Vital Signs Temp 97.6 F 01/06/21 07:15 Pulse 70 01/06/21 07:15 Resp 18 01/06/21 08:00 BP 135/67 01/06/21 07:15 Pulse Ox 96 01/06/21 07:15 Intake & Output 01/05/21 01/06/21 01/06/21 18:59 06:59 18:59 Output Total 3650 1500 Balance -3650 -1500 Output: Urine 3650 1500 Other: Voiding Method Indwelling Catheter Indwelling Catheter Indwelling Catheter # Bowel Movements 1 - Labs CBC & Chem 7: 01/06/21 10:34 01/05/21 06:46 Labs: Abnormal Lab Results - Last 24 Hours (Table) 01/05/21 01/05/21 01/06/21 Range/Units 06:46 16:26 06:36 RBC (3.80-5.40) m/uL Hgb (11.4-16.0) gm/dL Hct (34.0-46.0) % MCV (80.0-100.0) fL RDW (11.5-15.5) % Chloride 112 H (96-109) mmol/L Anion Gap 1.20 L (4.00-12.00) mmol/L BUN 45.0 H (9.0-27.0) mg/dL Est GFR (CKD-EPI)AfAm 43.6 L (60.0-200.0) Est GFR (CKD-EPI)NonAf 37.6 L (60.0-200.0) BUN/Creatinine Ratio 34.62 H (12.00-20.00) Ratio Glucose 68 L (70-110) mg/dL POC Glucose (mg/dL) 139 H 108 H (75-99) mg/dL Calcium 8.2 L (8.7-10.3) mg/dL AST 225 H (13-35) U/L ALT 101 H (8-44) U/L Total Protein 4.4 L (6.2-8.2) g/dL Albumin 2.90 L (3.80-4.90) g/dL Globulin 1.5 L (1.6-3.3) g/dL 01/06/21 01/06/21 Range/Units 10:34 11:22 RBC 2.45 L (3.80-5.40) m/uL Hgb 8.2 L (11.4-16.0) gm/dL Hct 24.7 L (34.0-46.0) % MCV 101.0 H (80.0-100.0) fL RDW 16.6 H (11.5-15.5) % Chloride (96-109) mmol/L Anion Gap (4.00-12.00) mmol/L BUN (9.0-27.0) mg/dL Est GFR (CKD-EPI)AfAm (60.0-200.0) Est GFR (CKD-EPI)NonAf (60.0-200.0) BUN/Creatinine Ratio (12.00-20.00) Ratio Glucose (70-110) mg/dL POC Glucose (mg/dL) 102 H (75-99) mg/dL Calcium (8.7-10.3) mg/dL AST (13-35) U/L ALT (8-44) U/L Total Protein (6.2-8.2) g/dL Albumin (3.80-4.90) g/dL Globulin (1.6-3.3) g/dL
--- NOTE | 2021-01-07 15:24 | P.PN ---
Subjective Progress Note Date: 01/07/21 HISTORY OF PRESENT ILLNESS This is an 85-year-old female patient of Dr. Bill and Dr. Diana with past medical history of coronary artery disease status post CABG in 2011 fol lowed by myocardial infarction, chronic systolic heart failure, valvular heart disease in the form of severe aortic stenosis and moderate to severe tricuspid regurgitation and severe pulmonary hypertension, paroxysmal atrial fibrillation, hypertension, hypertensive cardiovascular disease, hyperlipidemia, chronic kidney disease stage III, anemia of chronic disease, chronic gout diabetes mellitus type 2 insulin requiring, cervical stenosis, chronic back pain, generalized anxiety disorder. 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 Mati larios's states that yesterday, they were walking into the [employer] parlor and the floor was wet from rain, she walked 5 steps and slipped and fell and subsequently patient complained of right hip pain which was very severe and she was unable to move her right leg. Patient is seen today on the [facility] floor, she continues to have significant pain to the right hip area. Patient came into [facility] emergency center for evaluation and was found to have a right-sided comminuted mildly displaced right intertrochanteric fracture. Chest x-ray reveals stable cardiomegaly. No consolidation, effusion or pneumothorax. Bronchial cuffing over the left upper hemithorax component of hiatal or reactive small airway disease. Left knee x-ray showed no fracture. CAT scan of the brain and cervical spine showed no acute fracture dislocation of the cervical spine, no acute intracranial hemorrhage, mass effect or midline shift. Patient was afebrile, heart rate 67, blood pressure 162/59, pulse ox 97% on room air. EKG was a paced rhythm. WBC 11.7, hemoglobin 10.9, platelet count 112. Electrolytes were normal. BUN 48 creatinine 1.17 which is patient's baseline. Blood sugar 217. Liver function tests were normal. Coronavirus PCR not detected. Patient has been admitted under the care of orthopedics with plan for surgical fixation this afternoon. Cardiology consult in place for clearance. 01/03: Yesterday, patient underwent operative fixation of the right intertrochanteric hip fracture with short intramedullary hip screw. Patient can weight-bear as tolerated on her right leg and recommended doxycycline 100 mg twice daily due to delayed healing and eliquis was cleared to be resumed by the orthopedic surgeon. Patient will start working with physical therapy and oc cupational therapy today and discharge plan will be determined. At this time, plan is for home with [facility] but if recommendations are for subacute rehab, patient will go to [facility]. She has been afebrile, heart rate 72, blood pressure 122/66, pulse ox 97% on 2 L nasal cannula. Repeat blood work this morning reveals BUN 50, creatinine 1.64. Blood glucose running 282-330. Patient is resumed on her NovoLog 75/25 along with continued on NovoLog scale. 01/04: patient sitting up in bed in no apparent distress, she has poor appetite today, she appears to be a bit short of breath, she continues to be on IV fluid, she appears to have some fluid retention in both lower extremities, we'll decrease IV fluid to KVO, start the patient on Lasix 20 mg IV push every 12 hours, obtain portable chest x-ray, restart the patient on Farxiga 5 mg orally once every day, physical therapy to work with the patient, the plan distress with the patient to [facility] the morning. 01/05: Patient hemoglobin did drop yesterday to 6.4 type and cross and transfuse 1 unit of packed red blood cells was done, recheck the patient hemoglobin today, continue current pain management, this continue IV fluid, continue IV Lasix, follow up with the patient very closely, the plan is possibly transfer the patient to [facility] tomorrow morning if her hemoglobin is stable. 01/06: Pain to the right hip has been controlled. Patient did have a bowel movement yesterday. Echavarria catheter in place Be removed prior to discharge. Vital signs are stable. Hemoglobin today at 8.2 and patient is status post 1 unit packed RBCs. Blood sugars controlled. Patient is scheduled for transfer to [facility] for subacute rehab today. 01/07: Patient was not discharged yesterday as planned due to pending insurance authorization. Patient denies any new complaints. Pain is controlled. Echavarria catheter remains in place which is to be removed today. She's been afebrile, heart rate 61, blood pressure 147/66, pulse ox 95% on room air. Blood sugars are running between 70-109. Now changed to patient's medication reconciliation for discharge. REVIEW OF SYSTEMS Constitutional: No fever, no chills, no night sweats. No weight change. No weakness, fatigue or lethargy. No daytime sleepiness. EENT: No headache. No blurred vision or double vision, no loss of vision. No loss of Hearing, no ringing in the ears, no dizziness. No nasal drainage or congestion. No epistaxis. No sore throat. Lungs: No shortness of breath, cough, no sputum production. No wheezing. Cardiovascular: No chest pain, no lower extremity edema. No palpitations. No paroxysmal nocturnal dyspnea. No orthopnea. No lightheadedness or dizziness. No syncopal episodes. Abdominal: No abdominal pain. No nausea, vomiting. No diarrhea. No constipation. No bloody or tarry stools.. No loss of appetite. Genitourinary: No dysuria, increased frequency, urgency. No urinary retention. Musculoskeletal: No myalgias. No muscle weakness, no gait dysfunction, no frequent falls. No back pain. No neck pain. Right hip pain improved, stable. Integumentary: No wounds, no lesions. No rash or pruritus. No unusual bruising. No change in hair or nails. Neurologic: No aphasia. No facial droop. No change in mentation. No head injury. No headache. No paralysis. No paresthesia. Psychiatric: No depression. No anxiety. No mood swings. Endocrine: Noted abnormal blood sugars. PHYSICAL EXAMINATION Gen: This is this is an 85-year-old female. Patient is resting in bed appears to be comfortable and in no acute distress. is at bedside. HEENT: Head is atraumatic, normocephalic. Pupils equal, round. Sclerae is anicteric. Oral mucous membranes are very dry. NECK: Supple. No JVP. Decreased carotid upstroke bilaterally. No lymphadenopathy. No thyromegaly. LUNGS: Decreased breath sounds at the bases. No wheezes or rhonchi. No intercostal retractions. No accessory muscle usage. HEART: Permanent pacemaker located in the left upper precordium, first heart sound is depressed, second heart sound is normal, there is systolic ejection murmur 3/6 located in the right upper sternal border didn't to the neck. ABDOMEN: Soft. Bowel sounds are present. No masses. No tenderness. EXTREMITIES: No pedal edema. No calf tenderness. Dorsalis pedis palpable bilaterally. NEUROLOGICAL: Patient is awake, alert and oriented x3. Cranial nerves 2 through 12 are grossly intact. Muscle power 4 out of 5 in upper extremities and 3 out of 5 in left lower extremities ASSESSMENT AND PLAN 1. Right intertrochanteric fracture secondary to mechanical fall status post intramedullary hip screw 01/01. Continue current pain management, PT and OT evaluations, incentive spirometry to reduce incidence of atelectasis and hospital-acquired pneumonia, we will continue with Eliquis 2.5 mg orally twice every day for DVT prophylaxis, will be transferred to [facility] today. Medication reconciliation completed. 2. Acute blood loss anemia expected with fracture and surgery status post type and cross and transfuse 1 unit of packed red blood cells. Recheck CBC today 3 . Diabetes mellitus type 2 insulin requiring, uncontrolled with hyperglycemia. Hemoglobin A1c 9.6. Patient will be maintained on NovoLog scale before meals and at bedtime, resume NovoLog 75/25 tomorrow morning at 30 u nits 3 times daily and add Farxiga 5 mg orally daily. 4. History of coronary artery disease status post CABG in 2011 followed by stenting. we will continue with carvedilol 6.25 mg orally twice every day, continue baby aspirin 81 mg once every day, atorvastatin 80 mg once every day. 5. Chronic systolic heart failure. Continue carvedilol 6.25 mg orally twice every day, start the patient Lasix 20 mg IV push every 12 hours, heparin IV, start the patient on Farxiga 5 mg orally daily. 6. Valvular heart disease with severe aortic stenosis, moderate to severe tricuspid regurgitation and severe pulmonary hypertension, continue carvedilol 6.25 mg orally twice every day. 7. Hypertension, hypertensive cardiovascular disease. Continue Coreg 6.25 mg orally twice every day, continue Cardura 4 mg orally once every day, monitor the patient blood pressure very closely. 8. Hyperlipidemia. Continue Lipitor 80 mg orally once every day. 9. paroxysmal atrial for ablation. Continue patient on Eliquis 2.5 mg orally twice every day. 10. Chronic kidney disease stage III. monitor the patient CMP. 11. Anemia of chronic disease. recheck the CBC 12. Chronic gout. Continue allopurinol 100 mg twice daily. 13. DVT prophylaxis. Eliquis. 14. medical debility. Physical therapy evaluation. DISCHARGE PLAN Subacute rehab at [facility] Impression and plan of care have been directed as dictated by the signing physician. Talia Schneider nurse practitioner acting as scribe for signing physician. Objective - Vital Signs Vital signs: Vital Signs Temp 97.9 F 01/07/21 00:26 Pulse 61 01/07/21 00:26 Resp 15 01/07/21 00:26 BP 147/66 01/07/21 00:26 Pulse Ox 95 01/07/21 00:26 Intake & Output 01/06/21 01/07/21 01/07/21 18:59 06:59 18:59 Output Total 1000 1100 Balance -1000 -1100 Weight 78.5 kg Output: Urine 1000 1100 Other: Voiding Method Indwelling Catheter Indwelling Catheter - Labs CBC & Chem 7: 01/06/21 10:34 01/05/21 06:46 Labs: Abnormal Lab Results - Last 24 Hours (Table) 01/06/21 01/06/21 01/06/21 Range/Units 10:34 11:22 16:15 RBC 2.45 L (3.80-5.40) m/uL Hgb 8.2 L (11.4-16.0) gm/dL Hct 24.7 L (34.0-46.0) % MCV 101.0 H (80.0-100.0) fL RDW 16.6 H (11.5-15.5) % POC Glucose (mg/dL) 102 H 56 L (75-99) mg/dL 01/06/21 01/06/21 01/06/21 Range/Units 16:31 16:46 17:01 RBC (3.80-5.40) m/uL Hgb (11.4-16.0) gm/dL Hct (34.0-46.0) % MCV (80.0-100.0) fL RDW (11.5-15.5) % POC Glucose (mg/dL) 52 L 56 L 64 L (75-99) mg/dL 01/06/21 01/07/21 Range/Units 17:16 06:55 RBC (3.80-5.40) m/uL Hgb (11.4-16.0) gm/dL Hct (34.0-46.0) % MCV (80.0-100.0) fL RDW (11.5-15.5) % POC Glucose (mg/dL) 72 L 109 H (75-99) mg/dL
== END 2021-01-07 15:07 | DRG 481 ==
LOC: EC 15:36 → 4SSUR 17:38
PROVIDERS: ADMIT Orthopaedic Surgery; ATTEND Orthopaedic Surgery
PROC: 0QS636Z Reposition Right Upper Femur with Intramedullary Internal Fixation Device, Percutaneous Approach (ICD-10-PCS; principal; 2021-01-02 09:45)
PROC: 30233N1 Transfusion of Nonautologous Red Blood Cells into Peripheral Vein, Percutaneous Approach (ICD-10-PCS; 2021-01-04)
DX: S72.141A Displaced intertrochanteric fracture of right femur, initial encounter for closed fracture (principal); D62 Acute posthemorrhagic anemia; I50.22 Chronic systolic (congestive) heart failure; I13.0 Hypertensive heart and chronic kidney disease with heart failure and stage 1 through stage 4 chronic kidney disease, or unspecified chronic kidney disease; I44.2 Atrioventricular block, complete; D69.6 Thrombocytopenia, unspecified; I27.29 Other secondary pulmonary hypertension; D63.1 Anemia in chronic kidney disease; E11.22 Type 2 diabetes mellitus with diabetic chronic kidney disease; E11.65 Type 2 diabetes mellitus with hyperglycemia; I48.0 Paroxysmal atrial fibrillation; N18.30 Chronic kidney disease, stage 3 unspecified; Z79.4 Long term (current) use of insulin; Z20.822 Contact with and (suspected) exposure to COVID-19; I08.3 Combined rheumatic disorders of mitral, aortic and tricuspid valves; M25.562 Pain in left knee; E78.5 Hyperlipidemia, unspecified; K21.9 Gastro-esophageal reflux disease without esophagitis; F41.1 Generalized anxiety disorder; I25.10 Atherosclerotic heart disease of native coronary artery without angina pectoris; I25.2 Old myocardial infarction; M1A.9XX0 Chronic gout, unspecified, without tophus (tophi); M48.02 Spinal stenosis, cervical region; G89.29 Other chronic pain; M54.2 Cervicalgia; M54.9 Dorsalgia, unspecified; M19.90 Unspecified osteoarthritis, unspecified site; Z79.01 Long term (current) use of anticoagulants; Z79.899 Other long term (current) drug therapy; Z90.49 Acquired absence of other specified parts of digestive tract; Z87.19 Personal history of other diseases of the digestive system; Z95.1 Presence of aortocoronary bypass graft; Z90.710 Acquired absence of both cervix and uterus; Z87.42 Personal history of other diseases of the female genital tract; Z87.39 Personal history of other diseases of the musculoskeletal system and connective tissue; Z95.0 Presence of cardiac pacemaker; Z95.5 Presence of coronary angioplasty implant and graft; Z98.890 Other specified postprocedural states; Z88.5 Allergy status to narcotic agent; Z88.0 Allergy status to penicillin; Z88.8 Allergy status to other drugs, medicaments and biological substances; W01.0XXA Fall on same level from slipping, tripping and stumbling without subsequent striking against object, initial encounter; Z83.3 Family history of diabetes mellitus; Z82.49 Family history of ischemic heart disease and other diseases of the circulatory system; Z82.0 Family history of epilepsy and other diseases of the nervous system; Z80.3 Family history of malignant neoplasm of breast; Z81.1 Family history of alcohol abuse and dependence; Z84.1 Family history of disorders of kidney and ureter; Z83.79 Family history of other diseases of the digestive system
CPT/HCPCS: 70450; 71045; 72125; 73502; 80048; 80053; 85025; 85610; 85730; 86850; 86900; 86901; 86920; 87635; 93005; 93306; 94760; 96374; 99285

== ENCOUNTER 2021-01-15 03:30 | Inpatient (IN) | payer MEDICARE ==
--- NOTE | 2021-01-15 03:32 | ED ---
Altered Mental Status HPI - General Stated Complaint: Altered Mental Status Time Seen by Provider: 01/15/21 03:30 Source: RN notes reviewed, old records reviewed - History of Present Illness Initial Comments: This is a 85-year-old female is unable unable to provide history. Patient presents by EMS from [facility] where she was found like this. Patient is awake and alert 3 at baseline currently unable to answer questions. They did give the patient eat glucose her symptoms have not improved MD Complaint: altered mental status, confusion, decreased responsiveness, weakness -: unknown Consistency of Symptoms: waxing and waning, getting worse Context: history of similar presentation Associated Symptoms: weakness - Related Data Home Medications Medication Instructions Recorded Confirmed Allopurinol 100 mg PO BID 03/05/14 01/01/21 Atorvastatin [Lipitor] 80 mg PO HS 09/24/14 01/01/21 Doxazosin [Cardura] 4 mg PO DAILY 12/10/18 01/01/21 Apixaban [Eliquis] 2.5 mg PO BID 01/01/21 01/01/21 Dapagliflozin Propanediol [Farxiga] 5 mg PO DAILY 01/01/21 01/01/21 Insulin NPL/Insulin Lispro 30 unit SQ AC-TID 01/01/21 01/01/21 [humaLOG MIX 75-25 VIAL] Nitroglycerin Sl Tabs [Nitrostat] 0.4 mg SUBLINGUAL Q5M PRN 01/01/21 01/01/21 Previous Rx's Medication Instructions Recorded carvediloL [Coreg] 6.25 mg PO BID-W/MEALS #60 tab 09/19/19 Furosemide [Lasix] 40 mg PO BID #60 tab 09/26/19 Docusate [Colace] 100 mg PO BID #60 cap 01/03/21 Doxycycline Monohydrate 100 mg PO BID 30 Days #60 cap 01/03/21 HYDROcodone/APAP 5-325MG [Brigantine 1 tab PO Q8HR PRN 7 Days #21 tab 01/03/21 5-325] Pantoprazole [Protonix] 40 mg PO DAILY tab 01/06/21 Allergies Allergy/AdvReac Type Severity Reaction Status Date / Time cortisone Allergy Rash/Hives Verified 01/01/21 17:21 morphine Allergy Unknown Verified 01/01/21 17:21 Penicillins Allergy Rash/Hives Verified 01/01/21 17:21 Review of Systems ROS Statement: Those systems with pertinent positive or pertinent negative responses have been documented in the HPI. ROS Other: All systems not noted in ROS Statement are negative. 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 She is independent. She uses a walker for ambulation. Smoking Status: Never smoker Past Alcohol Use History: Occasional Additional Past Alcohol Use History / Comment(s): Patient is and lives with her . Past Drug Use History: None Reported - Past Family History Mother Family Medical History: Cancer, Diabetes Mellitus Additional Family Medical History / Comment(s): Mother at age 84 from Alzheimer's, old age. No coronary artery disease, no diabetes, history of breast cancer. Father Family Medical History: Congestive Heart Failure (CHF) Additional Family Medical History / Comment(s): Father in his early 80s from diabetes, occasions. No coronary artery disease. Brother(s) Family Medical History: Cancer (Patient is lives with her , functionally active denies any need a walker or assistance) Additional Family Medical History / Comment(s): Patient had total of 4 brothers. One at 69 from alcohol abuse. One at age 8 from kidney failure, a third brother has of unknown cause. One brother is alive at age 75 with no major medical problems. Sister(s) Additional Family Medical History / Comment(s): Patient has one sister with Crohn's 1 with irritable bowel syndrome. Patient does not have any children. General Exam Limitations: altered mental status General appearance: alert, in no apparent distress, anxious, in distress Head exam: Present: atraumatic, normocephalic, normal inspection Eye exam: Present: normal appearance, PERRL, EOMI. Absent: scleral icterus, conjunctival injection, periorbital swelling ENT exam: Present: normal exam, mucous membranes moist Neck exam: Present: normal inspection. Absent: tenderness, meningismus, lymphadenopathy Respiratory exam: Present: normal lung sounds bilaterally. Absent: respiratory distress, wheezes, rales, rhonchi, stridor Cardiovascular Exam: Present: regular rate, normal rhythm, normal heart sounds. Absent: systolic murmur, diastolic murmur, rubs, gallop, clicks GI/Abdominal exam: Present: soft, normal bowel sounds. Absent: distended, tenderness, guarding, rebound, rigid Extremities exam: Present: normal inspection, full ROM, normal capillary refill. Absent: tenderness, pedal edema, joint swelling, calf tenderness Back exam: Present: normal inspection Neurological exam: Present: alert, oriented X3, CN II-XII intact Psychiatric exam: Present: normal affect, normal mood Skin exam: Present: warm, dry, intact, normal color. Absent: rash Course Vital Signs 01/15/21 01/15/21 01/15/21 03:33 03:45 04:00 Temperature 99.8 F H 99.8 F H 99.8 F H Pulse Rate 74 75 66 Respiratory 18 20 16 Rate Blood Pressure 177/49 135/57 O2 Sat by Pulse 100 97 Oximetry 01/15/21 01/15/21 01/15/21 04:15 04:30 04:45 Temperature 99.6 F 99.7 F H 99.7 F H Pulse Rate 67 68 60 Respiratory 16 16 16 Rate Blood Pressure 149/63 154/50 173/56 O2 Sat by Pulse 97 96 98 Oximetry 01/15/21 05:03 Temperature Pulse Rate 59 L Respiratory 18 Rate Blood Pressure 191/87 O2 Sat by Pulse 97 Oximetry - Reevaluation(s) Reevaluation #1: 01/15/21 03:51 Medical record is reviewed Reevaluation #2: 01/15/21 03:51 I'll stroke is paged Reevaluation #3: 01/15/21 05:49 Patient family informed results here in the ER Reevaluation #4: 01/15/21 05:49 Mental status is mildly but is improving Medical Decision Making - Medical Decision Making A 85 female D to the emergency department F for altered mental status is a code stroke. A focal deficits found symptoms began to improve upon ER stay. CTA CT brain and chest x-ray negative for significant acute disease. - Lab Data Result diagrams: 01/15/21 03:58 01/15/21 03:58 Lab Results 01/15/21 01/15/21 01/15/21 Range/Units 03:45 03:58 03:58 WBC 18.3 H (3.8-10.6) k/uL RBC 3.10 L (3.80-5.40) m/uL Hgb 10.0 L D (11.4-16.0) gm/dL Hct 31.9 L (34.0-46.0) % MCV 102.7 H (80.0-100.0) fL MCH 32.2 (25.0-35.0) pg MCHC 31.3 (31.0-37.0) g/dL RDW 17.0 H (11.5-15.5) % Plt Count 464 H D (150-450) k/uL MPV 9.3 Neutrophils % 87 % Lymphocytes % 6 % Monocytes % 5 % Eosinophils % 1 % Basophils % 0 % Neutrophils # 15.9 H (1.3-7.7) k/uL Lymphocytes # 1.2 (1.0-4.8) k/uL Monocytes # 0.9 (0-1.0) k/uL Eosinophils # 0.2 (0-0.7) k/uL Basophils # 0.0 (0-0.2) k/uL Hypochromasia Slight Poikilocytosis Slight Anisocytosis Slight Macrocytosis Moderate PT 10.3 (9.0-12.0) sec INR 1.0 (<1.2) APTT 18.8 L (22.0-30.0) sec Sodium (137-145) mmol/L Potassium (3.5-5.1) mmol/L Chloride (98-107) mmol/L Carbon Dioxide (22-30) mmol/L Anion Gap mmol/L BUN (7-17) mg/dL Creatinine (0.52-1.04) mg/dL Est GFR (CKD-EPI)AfAm (>60 ml/min/1.73 sqM) Est GFR (CKD-EPI)NonAf (>60 ml/min/1.73 sqM) Glucose (74-99) mg/dL POC Glucose (mg/dL) 120 H (75-99) mg/dL POC Glu Cardiovascular Surgical Tech ID Charlette Still Calcium (8.4-10.2) mg/dL Total Bilirubin (0.2-1.3) mg/dL AST (14-36) U/L ALT (4-34) U/L Alkaline Phosphatase (38-126) U/L Troponin I (0.000-0.034) ng/mL Total Protein (6.3-8.2) g/dL Albumin (3.5-5.0) g/dL 01/15/21 01/15/21 Range/Units 03:58 03:58 WBC (3.8-10.6) k/uL RBC (3.80-5.40) m/uL Hgb (11.4-16.0) gm/dL Hct (34.0-46.0) % MCV (80.0-100.0) fL MCH (25.0-35.0) pg MCHC (31.0-37.0) g/dL RDW (11.5-15.5) % Plt Count (150-450) k/uL MPV Neutrophils % % Lymphocytes % % Monocytes % % Eosinophils % % Basophils % % Neutrophils # (1.3-7.7) k/uL Lymphocytes # (1.0-4.8) k/uL Monocytes # (0-1.0) k/uL Eosinophils # (0-0.7) k/uL Basophils # (0-0.2) k/uL Hypochromasia Poikilocytosis Anisocytosis Macrocytosis PT (9.0-12.0) sec INR (<1.2) APTT (22.0-30.0) sec Sodium 135 L (137-145) mmol/L Potassium 4.0 (3.5-5.1) mmol/L Chloride 103 (98-107) mmol/L Carbon Dioxide 25 (22-30) mmol/L Anion Gap 7 mmol/L BUN 41 H (7-17) mg/dL Creatinine 1.07 H (0.52-1.04) mg/dL Est GFR (CKD-EPI)AfAm 55 (>60 ml/min/1.73 sqM) Est GFR (CKD-EPI)NonAf 48 (>60 ml/min/1.73 sqM) Glucose 113 H (74-99) mg/dL POC Glucose (mg/dL) (75-99) mg/dL POC Glu Cardiovascular Surgical Tech ID Calcium 9.5 (8.4-10.2) mg/dL Total Bilirubin 1.5 H (0.2-1.3) mg/dL AST 39 H (14-36) U/L ALT 26 (4-34) U/L Alkaline Phosphatase 133 H (38-126) U/L Troponin I 0.064 H* (0.000-0.034) ng/mL Total Protein 5.5 L (6.3-8.2) g/dL Albumin 3.0 L (3.5-5.0) g/dL - EKG Data -: EKG Interpreted by Me (EKG shows paced rhythm 66 CT 188 QRS 200 QTc 553) - Radiology Data Radiology results: report reviewed (CT brain CT head neck does show some stenosis but no acute embolus, chest x-rays negative for acute disease), image reviewed Disposition Clinical Impression: Weakness, Altered mental status, Leukocytosis, Dehydration Disposition: ADMITTED IP TO THIS [facility] Condition: Fair Is patient prescribed a controlled substance at d/c from ED?: No Referrals: Leela Bill MD [Primary Care Provider] - 1-2 days
[2021-01-15] MEDS ORDERED: SODIUM CHLORIDE 0.9% 1,000 ML IV STA ×3 (03:50→04:44)
[2021-01-15 03:52] LABS: Glucose,Whole Blood 120 mg/dL (75-99)
[2021-01-15 04:28] LABS: Anisocytosis Slight; Basophils % (A) 0 %; Eosinophils # (A) 0.2 k/uL (0-0.7); Eosinophils % (A) 1 %; HCT 31.9 % (34.0-46.0); Hypochromasia Slight; Lymphocytes # (A) 1.2 k/uL (1.0-4.8); Lymphocytes % (A) 6 %; MCH 32.2 pg (25.0-35.0); MCHC 31.3 g/dL (31.0-37.0); MCV 102.7 fL (80.0-100.0); Macrocytosis Moderate; Mean Platelet Volume 9.3; Monocytes # (A) 0.9 k/uL (0-1.0); Monocytes % (A) 5 %; Neutrophils # (A) 15.9 k/uL (1.3-7.7); Neutrophils % (A) 87 %; Poikilocytosis Slight; WBC 18.3 k/uL (3.8-10.6)
[2021-01-15 04:29] LABS: Platelet Count 464 k/uL (150-450)
[2021-01-15 04:38] LABS: Calcium 9.5 mg/dL (8.4-10.2); Total Bilirubin 1.5 mg/dL (0.2-1.3); Total Protein 5.5 g/dL (6.3-8.2)
[2021-01-15 04:39] LABS: Prothrombin Time 10.3 sec (9.0-12.0)
[2021-01-15 04:41] LABS: Partial Thromboplastin Time 18.8 sec (22.0-30.0)
--- NOTE | 2021-01-15 04:57 | CT ---
EXAMINATION TYPE: CT brain wo con for TPA DATE OF EXAM: 01/15/2021 COMPARISON: 01/01/2021 HISTORY: Code Stroke CT DLP: 1934.9 mGycm Automated exposure control for dose reduction was used. There is some enlargement of the ventricles. There is cerebral atrophy. There is no mass effect nor m idline shift. There is hyperostosis frontalis. The calvarium is intact. Skull base is intact. There i s normal aeration of the mastoid sinuses. There is mucosal thickening right maxillary sinus. IMPRESSION: Cerebral atrophy. No acute intracranial abnormality. No change. Mild right maxillary sinusitis unchan ged.
--- NOTE | 2021-01-15 04:58 | XR ---
EXAMINATION TYPE: XR chest 1V DATE OF EXAM: 01/15/2021 COMPARISON: NONE HISTORY: 01/04/2021 TECHNIQUE: Single view FINDINGS: Heart is enlarged. There is some coarsening of interstitial markings. There are sternal wir es. There is left axillary pacemaker noted. There is no obvious heart failure. I see no definite pleu ral effusion. IMPRESSION: Increased pulmonary interstitial density similar to old exam. This is probably pulmonary fibrosis. Mild heart failure not entirely excluded. Cardiomegaly unchanged.
--- NOTE | 2021-01-15 05:10 | CT ---
EXAMINATION TYPE: CT angio head neck DATE OF EXAM: 01/15/2021 COMPARISON: None HISTORY: Code Stroke CT DLP: 1934.9 mGycm Automated exposure control for dose reduction was used. CONTRAST: Performed with IV Contrast, patient injected with 65 mL of Isovue 370. Images were obtained from the aortic arch to the vertex of the brain with IV contrast. There are 3-D post processed images. Thoracic aorta is atheromatous. There is arterial flow in both subclavian arteries. There is normal b ranching pattern of the great vessels on the aortic arch. Exam limited slightly by motion. There is a rterial flow in the common internal and external carotid arteries bilaterally. Unfortunately there is significant motion artifact at the carotid artery bifurcations and there appears to be stenosis at l east 50% at the origin of the internal carotid arteries. Severity of the stenosis is not well evaluat ed due to motion. There is arterial flow in both vertebral arteries. There is arterial flow in the ve rtebrobasilar artery system. There is arterial flow in the anterior middle and posterior cerebral arteries. There is no mass effec t. I see no evidence of intracranial aneurysm or neovascularity. There is normal enhancement of the v enous sinuses. IMPRESSION: Limited exam. No intracranial angiographic abnormality identified. Limited evaluation of the neck. There is likely more than 50% stenosis at the origin of both internal carotid arteries. Stenosis could be more than 70%.
[2021-01-15] MEDS ORDERED: ONDANSETRON 4 MG/2 ML VIAL IVP PRN (05:50)
[2021-01-15] MEDS ORDERED: NALOXONE 0.4 MG/ML 1 ML VIAL IV PRN (05:50)
[2021-01-15 05:51] LABS: Appearance,Urine Clear (Clear); Bilirubin,Urine Negative (Negative); Blood,Urine Negative (Negative); Color,Urine Yellow; Glucose,Urine (UA) 3+ (Negative); Ketones,Urine Negative (Negative); Leukocyte Esterase,Urine Negative (Negative); Nitrite,Urine Negative (Negative); PH, Urine 5.5 (5.0-8.0); Protein,Urine Negative (Negative); Specific Gravity,Urine 1.013 (1.001-1.035); Urobilinogen,Urine <2.0 mg/dL (<2.0)
[2021-01-15 06:17] LABS: Amphetamine Screen,Urine Not Detected (NotDetected); Barbiturate Screen,Urine Not Detected (NotDetected); Benzodiazepines Screen,Urine Not Detected (NotDetected); Cocaine Screen,Urine Not Detected (NotDetected); Methadone Screen, Urine Not Detected (NotDetected); Opiate Screen,Urine Detected (NotDetected); Oxycodone Screen, Urine Not Detected (NotDetected); Phencyclidine Screen,Urine Not Detected (NotDetected); Tricyclic Antidepressant,Urine Not Detected (NotDetected); Urn Cannabinoid Scrn Not Detected (NotDetected)
[2021-01-15] MEDS: SODIUM CHLORIDE 0.9% 1,000 ML IV SCH ×3 (07:03→20:50)
[2021-01-15] MEDS ORDERED: NITROGLYCERIN SL TABS 0.4 MG TAB SUBLINGUAL PRN (08:33)
[2021-01-15] MEDS ORDERED: bisacodyL 10 MG SUPP RECTAL PRN (08:33)
[2021-01-15] MEDS ORDERED: PANTOPRAZOLE 40 MG/10 ML VIAL IV SCH (09:00)
--- NOTE | 2021-01-15 10:27 | US ---
EXAMINATION TYPE: US carotid duplex BILAT DATE OF EXAM: 01/15/2021 COMPARISON: CTA neck earlier today CLINICAL HISTORY: altered mental status changes, CTA carotid stenosis. EXAM MEASUREMENTS: RIGHT: Peak Systolic Velocity (PSV) cm/sec ----- Right CCA: 89.0 ----- Right ICA: 132.0 ----- Right ECA: 227.0 ICA/CCA ratio: 1.5 RIGHT: End Diastole cm/sec ----- Right CCA: 9.7 ----- Right ICA: 15.9 ----- Right ECA: 0.0 LEFT: Peak Systolic Velocity (PSV) cm/sec ----- Left CCA: 172.0 ----- Left ICA: 180.0 ----- Left ECA: 88.8 ICA/CCA ratio: 1.1 LEFT: End Diastole cm/sec ----- Left CCA: 11.6 ----- Left ICA: 18.4 ----- Left ECA: 0.0 VERTEBRALS (direction of flow): Right Vertebral: Antegrade Left Vertebral: Antegrade Rhythm: Normal Difficult and limited study due to patient uncooperative Elevated velocities: right prox and mid ICA, right prox ECA, left distal CCA, left bulb and left prox and mid ICA Suboptimal study due to noncooperative patient. Grayscale images show shadowing peripheral plaque at the superior right carotid bulb and more moderate peripheral plaque at the left carotid bulb. Increas ed peak systolic velocity right internal carotid artery without abnormal end-diastolic velocity or ab normal ratio. Increased peak systolic velocity in the left common carotid artery without increased fo delia velocity in the left internal carotid artery relative to the common carotid artery. IMPRESSION: Suboptimal study. Moderate to severe atherosclerotic changes greater on the right redemo nstrated. Difficult to exclude significant stenosis on the right. Consider a direct catheter angiog lisa to further evaluate as patient may need to be sedated for diagnostic evaluation. Criteria for Assigning % of Stenosis / Diameter reduction (Estimation based on the indirect measurements of the internal carotid artery velocities (ICA PSV). 1. Normal (no stenosis)=ICA PSV < 125 cm/s: ratio < 2.0: ICA EDV<40 cm/s. 2. Less than 50% stenosis=ICA PSV < 125 cm/s: ratio < 2.0: ICA EDV<40 cm/s. 3. 50 to 69% stenosis=ICA PSV of 125 to 230 cm/s: ration 2.0 ? 4.0: ICA EDV 40-100 cm/s. 4. Greater than 70% stenosis to near occlusion= ICA PSV > 230 cm/s: ratio > 4.0: ICA EDV > 100 cm/s. 5. Near occlusion= ICA PSV velocities may be low or undetectable: variable ratio and ICA EDV. 6. Total occlusion=unable to detect flow.
[2021-01-15] MEDS: hydrALAZINE HCL 50 MG TAB PO SCH ×2 (10:48→20:49)
--- NOTE | 2021-01-15 11:15 | P.CONS ---
History of Present Illness - Reason for Consult Consult date: 01/15/21 wound care - History of Present Illness This is a 85-year-old patient being seen in the emergency room 11 for a nonhealing ulceration to the right heel. Patient is a poor historian. After reviewing the chart it appears that patient previously had a total hip arthroplasty performed. She is a resident at [facility]. Patient presents with a stage I pressure ulcer to the right calcaneus. Measuring approximately 1.5 x 1.5 x 0.1 cm skin is completely intact. There is ecchymosis to the area. Patient's past medical history significant for coronary artery disease, heart failure, diabetes, GERD, hyperlipidemia, hypertension, chronic kidney disease. Review Of Systems: Constitutional: No fever, no chills, no night sweats. No weight change. No weakness, fatigue or lethargy. No daytime sleepiness. Integumentary:reports wounds, no lesions. No rash or pruritus. No unusual bruising. No change in hair or nails. Physical exam: General Appearance: Alert, cooperative, no distress, appears stated age. Skin: See HPI all other Skin color, texture, tugor normal, no rashes or lesions. Neurologic: Alert oriented x3 Assessment: 1. Stage I pressure ulcer right calcaneus 2. Diabetes with skin ulcer Plan: 1.Right calcaneus: Apply triad, border foam. Utilize foam heel protectors. Continue to offload right calcaneus. Thank you for the consultation any questions contact the wound care center DNP note has been reviewed and discussed with Dr. Williamson and the impression and plan of care has been directed as dictated. 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 She is independent. She uses a walker for ambulation. Smoking Status: Never smoker Past Alcohol Use History: Occasional Additional Past Alcohol Use History / Comment(s): Patient is and lives with her . Past Drug Use History: None Reported - Past Family History Mother Family Medical History: Cancer, Diabetes Mellitus Additional Family Medical History / Comment(s): Mother at age 84 from Alzheimer's, old age. No coronary artery disease, no diabetes, history of breast cancer. Father Family Medical History: Congestive Heart Failure (CHF) Additional Family Medical History / Comment(s): Father in his early 80s from diabetes, occasions. No coronary artery disease. Brother(s) Family Medical History: Cancer (Patient is lives with her , functionally active denies any need a walker or assistance) Additional Family Medical History / Comment(s): Patient had total of 4 brothers. One at 69 from alcohol abuse. One at age 8 from kidney failure, a third brother has of unknown cause. One brother is alive at age 75 with no major medical problems. Sister(s) Additional Family Medical History / Comment(s): Patient has one sister with Crohn's 1 with irritable bowel syndrome. Patient does not have any children. Medications and Allergies Home Medications Medication Instructions Recorded Confirmed Type Allopurinol 100 mg PO BID@0800,1700 03/05/14 01/15/21 History Atorvastatin [Lipitor] 80 mg PO HS 09/24/14 01/15/21 History Doxazosin [Cardura] 4 mg PO DAILY@0800 12/10/18 01/15/21 History Apixaban [Eliquis] 2.5 mg PO BID@0800,1700 01/01/21 01/15/21 History Dapagliflozin Propanediol [Farxiga] 5 mg PO DAILY@0800 01/01/21 01/15/21 History Insulin NPL/Insulin Lispro 30 unit SQ AC-TID 01/01/21 01/15/21 History [humaLOG MIX 75-25 VIAL] Nitroglycerin Sl Tabs [Nitrostat] 0.4 mg SL Q5M PRN 01/01/21 01/15/21 History HYDROcodone/APAP 5-325MG [Ventura 1 tab PO Q8HR PRN 7 Days #21 tab 01/03/21 10/0 09/30 Rx 5-325] Docusate [Colace] 100 mg PO BID@0800,1700 01/15/21 01/15/21 History Doxycycline Monohydrate 100 mg PO BID@0800,1700 01/15/21 01/15/21 History Ferrous Sulfate [Feosol] 325 mg PO DAILY@0800 01/15/21 01/15/21 History Furosemide [Lasix] 40 mg PO BID@0600,1400 01/15/21 01/15/21 History Magnesium Hydroxide [Milk of 7,200 mg PO Q48H PRN 01/15/21 01/15/21 History Magnesia Concentrate] Na Phos,M-B/Na Phos,Di-Ba [Fleet 133 ml RECTAL DAILY PRN 01/15/21 01/15/21 History Adult] Pantoprazole [Protonix] 40 mg PO DAILY@0600 01/15/21 01/15/21 History bisacodyL [Dulcolax] 10 mg RECTAL DAILY PRN 01/15/21 01/15/21 History carvediloL [Coreg] 6.25 mg PO BID@0800,1700 01/15/21 01/15/21 History Allergies Allergy/AdvReac Type Severity Reaction Status Date / Time cortisone Allergy Rash/Hives Verified 01/15/21 08:09 morphine Allergy Unknown Verified 01/15/21 08:09 Penicillins Allergy Rash/Hives Verified 01/15/21 08:09 Physical Exam Vitals: Vital Signs Temp Pulse Resp BP Pulse Ox 01/15/21 10:48 54 L 16 175/52 100 01/15/21 07:33 100.3 F H 61 16 195/57 100 01/15/21 07:03 100.2 F H 57 L 16 193/60 100 01/15/21 05:03 59 L 18 191/87 97 01/15/21 04:45 99.7 F H 60 16 173/56 98 01/15/21 04:30 99.7 F H 68 16 154/50 96 01/15/21 04:15 99.6 F 67 16 149/63 97 01/15/21 04:00 99.8 F H 66 16 135/57 97 01/15/21 03:45 99.8 F H 75 20 01/15/21 03:33 99.8 F H 74 18 177/49 100 Intake and Output 01/14/21 01/15/21 01/15/21 22:59 06:59 14:59 Other: Weight 73.028 kg Results CBC & Chem 7: 01/15/21 03:58 01/15/21 03:58 Labs: Abnormal Lab Results - Last 24 Hours (Table) 01/15/21 01/15/21 01/15/21 Range/Units 03:45 03:58 03:58 WBC 18.3 H (3.8-10.6) k/uL RBC 3.10 L (3.80-5.40) m/uL Hgb 10.0 L D (11.4-16.0) gm/dL Hct 31.9 L (34.0-46.0) % MCV 102.7 H (80.0-100.0) fL RDW 17.0 H (11.5-15.5) % Plt Count 464 H D (150-450) k/uL Neutrophils # 15.9 H (1.3-7.7) k/uL APTT 18.8 L (22.0-30.0) sec Sodium (137-145) mmol/L BUN (7-17) mg/dL Creatinine (0.52-1.04) mg/dL Glucose (74-99) mg/dL POC Glucose (mg/dL) 120 H (75-99) mg/dL Total Bilirubin (0.2-1.3) mg/dL AST (14-36) U/L Alkaline Phosphatase (38-126) U/L Troponin I (0.000-0.034) ng/mL Total Protein (6.3-8.2) g/dL Albumin (3.5-5.0) g/dL Urine Glucose (UA) (Negative) Urine Opiates Screen (NotDetected) 01/15/21 01/15/21 01/15/21 Range/Units 03:58 03:58 05:17 WBC (3.8-10.6) k/uL RBC (3.80-5.40) m/uL Hgb (11.4-16.0) gm/dL Hct (34.0-46.0) % MCV (80.0-100.0) fL RDW (11.5-15.5) % Plt Count (150-450) k/uL Neutrophils # (1.3-7.7) k/uL APTT (22.0-30.0) sec Sodium 135 L (137-145) mmol/L BUN 41 H (7-17) mg/dL Creatinine 1.07 H (0.52-1.04) mg/dL Glucose 113 H (74-99) mg/dL POC Glucose (mg/dL) (75-99) mg/dL Total Bilirubin 1.5 H (0.2-1.3) mg/dL AST 39 H (14-36) U/L Alkaline Phosphatase 133 H (38-126) U/L Troponin I 0.064 H* (0.000-0.034) ng/mL Total Protein 5.5 L (6.3-8.2) g/dL Albumin 3.0 L (3.5-5.0) g/dL Urine Glucose (UA) 3+ H (Negative) Urine Opiates Screen Detected H (NotDetected) Assessment and Plan (1) Pressure ulcer of right heel, stage 1 Current Visit: Yes Status: Acute Code(s): L89.611 - PRESSURE ULCER OF RIGHT HEEL, STAGE 1 SNOMED Code(s): 733704266 (2) Diabetes mellitus with foot ulcer Current Visit: Yes Status: Acute Code(s): E11.621 - TYPE 2 DIABETES MELLITUS WITH FOOT ULCER; L97.509 - NON-PRESSURE CHRONIC ULCER OTH PRT UNSP FOOT W UNSP SEVERITY SNOMED Code(s): 36587072
--- NOTE | 2021-01-15 11:29 | P.GSCN ---
History of Present Illness Consult date: 01/15/21 Reason for Consult: Carotid stenosis Requesting physician: Elver Almanza History of present illness: This is a 85-year-old female who was brought in early this morning by EMS for altered mental status changes. Majority of this HPI is obtained by family members and chart. Apparently the patient is currently at [facility] undergoing rehab for a recent right hip fracture and was checked on approximately 3 AM and was noted to have altered mental status changes. Apparently the patient was mostly unresponsive, she had a blood sugar of 35, ileus was called and she was brought to the emergency department for further evaluation. She has a past medical history of coronary artery disease status post CABG, heart failure, diabetes mellitus, GERD, hyperlipidemia, hypertension, chronic renal disease and recent hip fracture status post repair. She is currently sleeping, slightly difficult to arouse. Patient is able to answer questions appropriately, she is alert and oriented to place, time and self however states her maiden name instead of her current last name. She is able to follow commands, however drif ts off unless re-directed. Patient was evaluated for TIA/CVA and underwent a brain CT with no acute intracranial abnormality. CT angiogram of head and neck reports suboptimal study with 50% bilateral ICA stenosis, could be more than 70%. Patient's family is at the bedside and states that patient follows with Dr. Diana and he manages and is aware of her carotid stenosis. Patient is on Eliquis and Lipitor. 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 She is independent. She uses a walker for ambulation. Smoking Status: Never smoker Past Alcohol Use History: Occasional Additional Past Alcohol Use History / Comment(s): Patient is and lives with her . Past Drug Use History: None Reported - Past Family History Mother Family Medical History: Cancer, Diabetes Mellitus Additional Family Medical History / Comment(s): Mother at age 84 from Alzheimer's, old age. No coronary artery disease, no diabetes, history of breast cancer. Father Family Medical History: Congestive Heart Failure (CHF) Additional Family Medical History / Comment(s): Father in his early 80s from diabetes, occasions. No coronary artery disease. Brother(s) Family Medical History: Cancer (Patient is lives with her , functionally active denies any need a walker or assistance) Additional Family Medical History / Comment(s): Patient had total of 4 brothers. One at 69 from alcohol abuse. One at age 8 from kidney failure, a third brother has of unknown cause. One brother is alive at age 75 with no major medical problems. Sister(s) Additional Family Medical History / Comment(s): Patient has one sister with Crohn's 1 with irritable bowel syndrome. Patient does not have any children. Medications and Allergies Home Medications Medication Instructions Recorded Confirmed Type Allopurinol 100 mg PO BID@0800,1700 03/05/14 01/15/21 History Atorvastatin [Lipitor] 80 mg PO HS 09/24/14 01/15/21 History Doxazosin [Cardura] 4 mg PO DAILY@0800 12/10/18 01/15/21 History Apixaban [Eliquis] 2.5 mg PO BID@0800,1700 01/01/21 01/15/21 History Dapagliflozin Propanediol [Farxiga] 5 mg PO DAILY@0800 01/01/21 01/15/21 History Insulin NPL/Insulin Lispro 30 unit SQ AC-TID 01/01/21 01/15/21 History [humaLOG MIX 75-25 VIAL] Nitroglycerin Sl Tabs [Nitrostat] 0.4 mg SL Q5M PRN 01/01/21 01/15/21 History HYDROcodone/APAP 5-325MG [[place] 1 tab PO Q8HR PRN 7 Days #21 tab 01/03/21 01/15/21 Rx 5-325] Docusate [Colace] 100 mg PO BID@0800,1700 01/15/21 01/15/21 History Doxycycline Monohydrate 100 mg PO BID@0800,1700 01/15/21 01/15/21 History Ferrous Sulfate [Feosol] 325 mg PO DAILY@0800 01/15/21 01/15/21 History Furosemide [Lasix] 40 mg PO BID@0600,1400 01/15/21 01/15/21 History Magnesium Hydroxide [Milk of 7,200 mg PO Q48H PRN 01/15/21 01/15/21 History Magnesia Concentrate] Na Phos,M-B/Na Phos,Di-Ba [Fleet 133 ml RECTAL DAILY PRN 01/15/21 01/15/21 History Adult] Pantoprazole [Protonix] 40 mg PO DAILY@0600 01/15/21 01/15/21 History bisacodyL [Dulcolax] 10 mg RECTAL DAILY PRN 01/15/21 01/15/21 History carvediloL [Coreg] 6.25 mg PO BID@0800,1700 01/15/21 01/15/21 History Allergies Allergy/AdvReac Type Severity Reaction Status Date / Time cortisone Allergy Rash/Hives Verified 01/15/21 08:09 morphine Allergy Unknown Verified 01/15/21 08:09 Penicillins Allergy Rash/Hives Verified 01/15/21 08:09 Surgical - Exam Vital Signs Temp Pulse Resp BP Pulse Ox 99.8 F H 74 18 177/49 100 01/15/21 03:33 01/15/21 03:33 01/15/21 03:33 01/15/21 03:33 01/15/21 03:33 General appearance: The patient is drowsy but arousable, alert, oriented x3, appears in no acute distress. HET: Head is normocephalic and atraumatic. Pupils are equal and reactive. . Neck: Supple without lymphadenopathy. Trachea midline. No audible bruit. Heart: S1 S2. Regular rate and rhythm. Lungs: Clear to auscultation.. Abdomen: Soft, nontender, nondistended. Extremities: Normal skin color and turgor. No cyanosis, rash, ulceration, clubbing, or edema. Palpable bilateral radial pulses +2. Neurological: Patient is very lethargic, she is arousable but frequently fades in and out of sleeping. Needs to be redirected. Answers questions appropriately and follows commands. She has facial symmetry, tongue protrudes midline, speech is fluent. She has bilateral upper and lower extremity weakness 3/5. Actually on able to really determine right lower extremity as she recently had surgery to the right hip and was having pain therefore not moving well. She has good tone. Results - Labs 01/15/21 03:58 01/15/21 03:58 Abnormal Lab Results - Last 24 Hours (Table) 01/15/21 01/15/21 01/15/21 Range/Units 03:45 03:58 03:58 WBC 18.3 H (3.8-10.6) k/uL RBC 3.10 L (3.80-5.40) m/uL Hgb 10.0 L D (11.4-16.0) gm/dL Hct 31.9 L (34.0-46.0) % MCV 102.7 H (80.0-100.0) fL RDW 17.0 H (11.5-15.5) % Plt Count 464 H D (150-450) k/uL Neutrophils # 15.9 H (1.3-7.7) k/uL APTT 18.8 L (22.0-30.0) sec Sodium (137-145) mmol/L BUN (7-17) mg/dL Creatinine (0.52-1.04) mg/dL Glucose (74-99) mg/dL POC Glucose (mg/dL) 120 H (75-99) mg/dL Total Bilirubin (0.2-1.3) mg/dL AST (14-36) U/L Alkaline Phosphatase (38-126) U/L Troponin I (0.000-0.034) ng/mL Total Protein (6.3-8.2) g/dL Albumin (3.5-5.0) g/dL Urine Glucose (UA) (Negative) Urine Opiates Screen (NotDetected) 01/15/21 01/15/21 01/15/21 Range/Units 03:58 03:58 05:17 WBC (3.8-10.6) k/uL RBC (3.80-5.40) m/uL Hgb (11.4-16.0) gm/dL Hct (34.0-46.0) % MCV (80.0-100.0) fL RDW (11.5-15.5) % Plt Count (150-450) k/uL Neutrophils # (1.3-7.7) k/uL APTT (22.0-30.0) sec Sodium 135 L (137-145) mmol/L BUN 41 H (7-17) mg/dL Creatinine 1.07 H (0.52-1.04) mg/dL Glucose 113 H (74-99) mg/dL POC Glucose (mg/dL) (75-99) mg/dL Total Bilirubin 1.5 H (0.2-1.3) mg/dL AST 39 H (14-36) U/L Alkaline Phosphatase 133 H (38-126) U/L Troponin I 0.064 H* (0.000-0.034) ng/mL Total Protein 5.5 L (6.3-8.2) g/dL Albumin 3.0 L (3.5-5.0) g/dL Urine Glucose (UA) 3+ H (Negative) Urine Opiates Screen Detected H (NotDetected) Diabetes panel 01/15/21 Range/Units 03:58 Sodium 135 L (137-145) mmol/L Potassium 4.0 (3.5-5.1) mmol/L Chloride 103 (98-107) mmol/L Carbon Dioxide 25 (22-30) mmol/L BUN 41 H (7-17) mg/dL Creatinine 1.07 H (0.52-1.04) mg/dL Glucose 113 H (74-99) mg/dL Calcium 9.5 (8.4-10.2) mg/dL AST 39 H (14-36) U/L ALT 26 (4-34) U/L Alkaline Phosphatase 133 H (38-126) U/L Total Protein 5.5 L (6.3-8.2) g/dL Albumin 3.0 L (3.5-5.0) g/dL Calcium panel 01/15/21 Range/Units 03:58 Calcium 9.5 (8.4-10.2) mg/dL Albumin 3.0 L (3.5-5.0) g/dL Pituitary panel 01/15/21 Range/Units 03:58 Sodium 135 L (137-145) mmol/L Potassium 4.0 (3.5-5.1) mmol/L Chloride 103 (98-107) mmol/L Carbon Dioxide 25 (22-30) mmol/L BUN 41 H (7-17) mg/dL Creatinine 1.07 H (0.52-1.04) mg/dL Glucose 113 H (74-99) mg/dL Calcium 9.5 (8.4-10.2) mg/dL Adrenal panel 01/15/21 Range/Units 03:58 Sodium 135 L (137-145) mmol/L Potassium 4.0 (3.5-5.1) mmol/L Chloride 103 (98-107) mmol/L Carbon Dioxide 25 (22-30) mmol/L BUN 41 H (7-17) mg/dL Creatinine 1.07 H (0.52-1.04) mg/dL Glucose 113 H (74-99) mg/dL Calcium 9.5 (8.4-10.2) mg/dL Total Bilirubin 1.5 H (0.2-1.3) mg/dL AST 39 H (14-36) U/L ALT 26 (4-34) U/L Alkaline Phosphatase 133 H (38-126) U/L Total Protein 5.5 L (6.3-8.2) g/dL Albumin 3.0 L (3.5-5.0) g/dL - Imaging Comments: brain CT: Cerebral atrophy. No acute intracranial abnormality. No change. Mild right maxillary sinusitis unchanged. CT angiogram head and neck: Limited exam. No intracranial angiographic abnormality identified. Limited evaluation of the neck. There is likely more than 50% stenosis at the origin of both internal carotid arteries. Stenosis could be more than 70%. Carotid ultrasound: States suboptimal study. Moderate to severe arthrosclerotic changes greater on the right redemonstrated. Difficult to exclude significant stenosis on the right. Consider a direct catheter angiogram to further evaluate as patient may need to be sedated for diagnostic evaluation. Right ICA PSV 132, ICA/CCA ratio 1.5. Left ICA PSV 180, ICA/CCA ratio 1.1 Assessment and Plan Assessment: 1. Bilateral internal carotid artery stenosis 2. Altered mental status changes, likely related to hypoglycemia 3. Hypoglycemia 4. History diabetes mellitus 5. History of coronary artery disease 6. History of hyperlipidemia Plan: 1. Continue symptomatic and supportive care 2. Carotid duplex ordered 3. Continue high-dose statin and Eliquis 4. Neurology on consult, appreciate their recommendations 5. Further recommendations to follow Thank you for this consultation, we will continue to follow. The impression and plan of care has been dictated as directed. Dr. Echavarria I performed a history and examination of this patient, discussed the same with the dictator. I agree with the dictator's note ,documented as a scribe. Any additional findings or plans will be noted.
[2021-01-15] MEDS ORDERED: INSULN ASP PRT/INSULIN ASPART 100 UNIT/ML 10 ML VIAL SQ SCH (12:30)
--- NOTE | 2021-01-15 13:54 | P.CNNES ---
History of Present Illness Consult date: 01/15/21 Requesting physician: Jodie Francis Reason for Consult: TIA History of Present Illness: Patient is a 85-year-old female came to the hospital by ambulance, early this morning at 3:30 AM. As per EMS flow sheet, when they arrived, patient was altered and "fidgety". Staff mentioned that patient's baseline mental status is alert and oriented 2- 3. On doing their nightly rounding noticed patient was altered and not r esponding. Her blood sugar was 34. Patient has history of diabetes. They tried to give her honey orally, with no success. Staff gave glucagon IM in her abdomen at 2:30 AM. Patient's blood sugar went up to 134. Patient became more alert but was confused. Her vitals at the scene was blood pressure 155/117, pulse rate 81, respirations 16 saturation 99. Patient's blood test shows obesity 18.3 hemoglobin 10.0, platelets are 464. PT/PTT normal, sodium 135 potassium 4.0, BUN 41, creatinine 1.07. AST is mildly elevated 39, normal AST 26. Troponin is borderline 0.064. UA is negative. Urine drug screen positive for opiates. Patient's hemoglobin A1c 6.[address] head showed cerebral atrophy. No acute process. Mild right maxillary sinusitis, unchanged. CTA of the head and neck showed no intracranial angiographic abnormality. There is likely more than 50% stenosis at the origin of both ICA. Stenosis could be more than 70%. Chest x-ray showed increased pulmonary interstitial density similar to oral exam. This is probably pulmonary fibrosis. Mild heart failure not entirely excluded. Cardiomegaly unchanged. EKG shows AV dual paced rhythm. Patient's sister and [id number] were present today. They mentioned that patient fell and broke her hip on 01/01/2021 for which she underwent right hip arthroplasty on 01/02/2021. She stayed in the hospital for one week and then went to rehab at [facility] on 01/07/2021. Patient does have diabetes for many years. She is coming up with mild dementia. Patient has 2 sisters, has no children. Patient was brought to the hospital for altered mental status felt to be related to low blood sugar and high blood pressure. There is a concern about infection in the right hip region where she had surgery. Patient has hypertension, hyperlipidemia. Patient has never smoked, does not drink. Alvaro braga is currently on Eliquis for her cardiac reasons. She has 6 bypass 10 years ago. Patient takes allopurinol, Lipitor 80 mg, doxazosin, Eliquis 2.5 mg twice a day,Farxoga, insulin, Coreg, Lasix, doxycycline and Protonix. Review of Systems Patient denies chest pain, no difficulty breathing. Complains of severe pain in the right hip in the right leg. Denies any problem with the vision. Patient did not cooperate further with review of systems. ROS unobtainable: due to mental status Past Medical History Past Medical History: Coronary Artery Disease (CAD), Heart Failure, Diabetes Mellitus, GERD/Reflux, Hyperlipidemia, Hypertension, Myocardial Infarction (MA), Osteoarthritis (OA), Renal Disease Additional Past Medical History / Comment(s): History of valvular heart disease with aortic stenosis, moderate mitral regurgitation stenosis, coronary artery disease with previous MA and previous bypass surgery, chronic anemia, chronic osteoarthritis and neck pain, diabetes mellitus, hypertension and hyperlipidemia, secondary pulmonary hypertension related to valvular heart dis ease Last Myocardial Infarction Date:: 2011 History of Any Multi-Drug Resistant Organisms: None Reported Past Surgical History: Cholecystectomy, Coronary Bypass/CABG, Hysterectomy Additional Past Surgical History / Comment(s): 8x D&C, CABG 7 Blockages, bilateral foot surgery to remove tumors Past Anesthesia/Blood Transfusion Reactions: No Reported Reaction Type of Cardiac Device: Permanent Pacemaker Device Placement Date:: 09/15/19 Past Psychological History: No Psychological Hx Reported Additional Psychological History / Comment(s): Pt resides with her spouse. She is independent. She uses a walker for ambulation. Smoking Status: Never smoker Past Alcohol Use History: Occasional Additional Past Alcohol Use History / Comment(s): Patient is and lives with her . Past Drug Use History: None Reported - Past Family History Mother Family Medical History: Cancer, Diabetes Mellitus Additional Family Medical History / Comment(s): Mother at age 84 from Alzheimer's, old age. No coronary artery disease, no diabetes, history of breast cancer. Father Family Medical History: Congestive Heart Failure (CHF) Additional Family Medical History / Comment(s): Father in his early 80s from diabetes, occasions. No coronary artery disease. Brother(s) Family Medical History: Cancer (Patient is lives with her , functionally active denies any need a walker or assistance) Additional Family Medical History / Comment(s): Patient had total of 4 brothers. One at 69 from alcohol abuse. One at age 8 from kidney failure, a third brother has of unknown cause. One brother is alive at age 75 with no major medical problems. Sister(s) Additional Family Medical History / Comment(s): Patient has one sister with Crohn's 1 with irritable bowel syndrome. Patient does not have any children. Medications and Allergies Home Medications Medication Instructions Recorded Confirmed Type Allopurinol 100 mg PO BID@0800,1700 03/05/14 01/15/21 History Atorvastatin [Lipitor] 80 mg PO HS 09/24/14 01/15/21 History Doxazosin [Cardura] 4 mg PO DAILY@0800 12/10/18 01/15/21 History Apixaban [Eliquis] 2.5 mg PO BID@0800,1700 01/01/21 01/15/21 History Dapagliflozin Propanediol [Farxiga] 5 mg PO DAILY@0800 01/01/21 01/15/21 History Insulin NPL/Insulin Lispro 30 unit SQ AC-TID 01/01/21 01/15/21 History [humaLOG MIX 75-25 VIAL] Nitroglycerin Sl Tabs [Nitrostat] 0.4 mg SL Q5M PRN 01/01/21 01/15/21 History HYDROcodone/APAP 5-325MG [[place] 1 tab PO Q8HR PRN 7 Days #21 tab 01/03/21 01/15/21 Rx 5-325] Docusate [Colace] 100 mg PO BID@0800,1700 01/15/21 01/15/21 History Doxycycline Monohydrate 100 mg PO BID@0800,1700 01/15/21 01/15/21 History Ferrous Sulfate [Feosol] 325 mg PO DAILY@0800 01/15/21 01/15/21 History Furosemide [Lasix] 40 mg PO BID@0600,1400 01/15/21 01/15/21 History Magnesium Hydroxide [Milk of 7,200 mg PO Q48H PRN 01/15/21 01/15/21 History Magnesia Concentrate] Na Phos,M-B/Na Phos,Di-Ba [Fleet 133 ml RECTAL DAILY PRN 01/15/21 01/15/21 History Adult] Pantoprazole [Protonix] 40 mg PO DAILY@0600 01/15/21 01/15/21 History bisacodyL [Dulcolax] 10 mg RECTAL DAILY PRN 01/15/21 01/15/21 History carvediloL [Coreg] 6.25 mg PO BID@0800,1700 01/15/21 01/15/21 History Allergies Allergy/AdvReac Type Severity Reaction Status Date / Time cortisone Allergy Rash/Hives Verified 01/15/21 08:09 morphine Allergy Unknown Verified 01/15/21 08:09 Penicillins Allergy Rash/Hives Verified 01/15/21 08:09 Physical Examination - Vital Signs Vital Signs: Vital Signs Temp Pulse Resp BP Pulse Ox 01/15/21 07:33 100.3 F H 61 16 195/57 100 01/15/21 07:03 100.2 F H 57 L 16 193/60 100 01/15/21 05:03 59 L 18 191/87 97 01/15/21 04:45 99.7 F H 60 16 173/56 98 01/15/21 04:30 99.7 F H 68 16 154/50 96 01/15/21 04:15 99.6 F 67 16 149/63 97 01/15/21 04:00 99.8 F H 66 16 135/57 97 01/15/21 03:45 99.8 F H 75 20 01/15/21 03:33 99.8 F H 74 18 177/49 100 Intake and Output 01/14/21 01/15/21 01/15/21 22:59 06:59 14:59 Other: Weight 73.028 kg Patient is an elderly female, who appears to be in mild distress due to some pain somewhere, moaning, no respiratory distress however. Patient is slightly somnolent, groggy. She was able to tell that she is in [facility], but could not tell name of the building. Patient did not elect to answer to the month or year. Speech and language functions are normal. Attention, concentration and fund of knowledge is limited. On cranial examination, pupils are round and reacting to light, visual redding are full on confrontation, extraocular muscles are intact with no nystagmus. Face is symmetric, tongue protrudes to the midline. Palatal elevation and sensation normal, hearing is slightly decreased and shoulder shrug normal, facia l sensation normal. On muscle strength testing, there is no pronator drift and the strength is no rmal in arms distally and proximally. Patient's right leg is very tender, any touching or movement of the right leg elicits severe pain. The left foot appears normal. Deep tendon reflexes are symmetric, 2 in bilateral upper limbs. 2 at the left knee and 1 at the left ankle. Not able to check the right leg because of pain. Sensory to touch is equal with no neglect. Patient has hyperpathia in the right leg. Cerebellar function showed no ataxia for [id number] testing. Tone and bulk of muscles normal. Gait not checked. On general examination, there is no carotid bruit or murmur, S1-S2 audible. Abdomen is soft nontender. Chest is clear. Patient has significant peripheral edema in the right leg, less on the left leg. Results - Laboratory Findings CBC and BMP: 01/15/21 03:58 01/15/21 03:58 Abnormal Lab Findings: Abnormal Labs 01/15/21 01/15/21 01/15/21 03:45 03:58 03:58 WBC 18.3 H RBC 3.10 L Hgb 10.0 L D Hct 31.9 L MCV 102.7 H RDW 17.0 H Plt Count 464 H D Neutrophils # 15.9 H APTT 18.8 L Sodium BUN Creatinine Glucose POC Glucose (mg/dL) 120 H Total Bilirubin AST Alkaline Phosphatase Troponin I Total Protein Albumin Urine Glucose (UA) Urine Opiates Screen 01/15/21 01/15/21 01/15/21 03:58 03:58 05:17 WBC RBC Hgb Hct MCV RDW Plt Count Neutrophils # APTT Sodium 135 L BUN 41 H Creatinine 1.07 H Glucose 113 H POC Glucose (mg/dL) Total Bilirubin 1.5 H AST 39 H Alkaline Phosphatase 133 H Troponin I 0.064 H* Total Protein 5.5 L Albumin 3.0 L Urine Glucose (UA) 3+ H Urine Opiates Screen Detected H Assessment and Plan Assessment: * Altered mental status, most likely related to acute hypoglycemia with blood sugar of 34 noted in the rehab facility. Examination is nonfocal. * Encephalopathy, due to hypoglycemia, severe pain, possible medication related. * Status post right hip surgery on 01/02/2021, with subsequent severe pain and swelling in the right leg. Rule out infection. * Possible bilateral ICA stenosis 50-70% per CTA, relatively worse on the right per carotid Doppler. * Hypertension * Diabetes * Hyperlipidemia Plan: * Avoid episodes of hypoglycemia. Need to address her medication for diabetes. Will defer to IM. * We will check ESR, B12, folic acid, MMA * Vascular surgery of report for possible ICA stenosis. * Continue Eliquis 2.5 mg twice a day and Lipitor 80 mg. * Hemoglobin A1c 6.2 on 01/10/2021. TSH is normal. * Lipid panel with cholesterol 137, LDL 56, HDL 50 and triglycerides 155 on 12/05/2020. * Orthopedic consultation for persistent right leg pain, swelling-postop. Consider computed tomography scan or ultrasound of the right lower extremity to rule out underlying hematoma. * Discussed with patient's sister and [id number] in detail.
[2021-01-15 13:58] LABS: Glucose,Whole Blood 62 mg/dL (75-99)
[2021-01-15] MEDS: HYDROPHILIC CREAM 180 GM TUBE TOPICAL SCH (14:29)
[2021-01-15] MEDS: INSULIN ASPART (NovoLOG) 100 UNIT/ML VIAL SQ SCH ×3 (14:30→20:43)
--- NOTE | 2021-01-15 14:58 | P.HPIM ---
History of Present Illness H&P Date: 01/15/21 HISTORY OF PRESENT ILLNESS This is an 85-year-old female patient of Dr. Bill and Dr. Diana with past medical history of coronary artery disease status post CABG in 2011 followed by myocardial infarction, chronic systolic heart failure, valvular heart disease in the form of severe aortic stenosis and moderate to severe tricuspid regurgitation and severe pulmonary hypertension, hypertension, hypertensive cardiovascular disease, hyperlipidemia, chronic kidney disease stage III, anemia of chronic disease, chronic gout diabetes mellitus type 2 insulin requiring, cervical stenosis, chronic back pain, generalized anxiety disorder. 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 Patient was hospitalized the end of December due to right intertrochanteric fracture secondary to mechanical fall status post intramedullary hip screw on 01/[address] Conroy. She was given 1 unit of packed RBCs during her stay. Patient was stabilized and discharged to [facility] for subacute rehab. Patient has been doing well there until this morning when her blood sugar was found to be 34. This was around 3 AM there was change in mental status and patient was "babbling" with concern for TIA and patient was brought into [facility] for further evaluation. Family states that initially, she did not recognize family but after she received bag of IV fluids, she was able to state her family members names. Patient is complaining of nausea and feeling sick. Family stated that she has been eating well at the [facility] except for yesterday she was not drinking very much as there was no water in her room. Blood sugar in the emergency center was 120. WBC 18.3, hemoglobin 10, platelet count 464. INR 1.0. Sodium 135, BUN 41 and creatinine 1.07. Total bilirubin 1.5, AST 39, ALT 26, alk phosphatase 133. Troponins are 0.064. Patient is status post 2 L of IV fluids. Chest x-ray reveals increased pulmonary interstitial density similar to old exam. Probable pulmonary fibrosis. Mild heart failure not entirely excluded. Cardiomegaly unchanged. CAT scan of the brain showed cerebral atrophy. No acute intracranial abnormality. No change. Mild right maxillary sinusitis unchanged. CT angiogram of the head and neck revealed limited exam. No intracranial angiographic abnormality. Limited evaluation of the neck. Likely more than 50 of both internal carotid arteries. Stenosis could be more than 70%. Patient is seen today in the emergency center waiting for a bed on the heart attack stepdown unit, consults with vascular surgery, neurology and orthopedic. REVIEW OF SYSTEMS Constitutional: No fever, no chills, no night sweats. No weight change. Noted weakness, reported fatigue reported lethargy. No daytime sleepiness. EENT: No headache. No blurred vision or double vision, no loss of vision. No loss of Hearing, no ringing in the ears, no dizziness. No nasal drainage or congestion. No epistaxis. No sore throat. Lungs: No shortness of breath, cough, no sputum production. No wheezing. Cardiovascular: No chest pain, no lower extremity edema. No palpitations. No paroxysmal nocturnal dyspnea. No orthopnea. No lightheadedness or dizziness. No syncopal episodes. Abdominal: Reports abdominal pain. Reports nausea, no vomiting. No diarrhea. No constipation. No bloody or tarry stools.. No loss of appetite. Decreased water intake yesterday. Genitourinary: No dysuria, increased frequency, urgency. No urinary retention. Musculoskeletal: No myalgias. Reported muscle weakness, reported gait dysfunction, no frequent falls. No back pain. No neck pain. Right hip pain. Integumentary: Noted right hip surgical wound, right heel ulcer/wound, no lesions. No rash or pruritus. No unusual bruising. No change in hair or nails. Neurologic: No aphasia. No facial droop. No change in mentation. No head injury. No headache. No paralysis. No paresthesia. Psychiatric: No depression. No anxiety. No mood swings. Endocrine: Noted abnormal blood sugars. No weight change. No excessive sweating or thirst. No cold intolerance. MEDICAL HISTORY Coronary artery disease status post CABG in 2012 followed by myocardial infarction Chronic systolic heart failure Valvular heart disease with severe aortic stenosis, moderate to severe tricuspid regurgitation and severe pulmonary hypertension Hypertension, hypertensive cardiovascular disease Hyperlipidemia Chronic kidney disease stage III Anemia of chronic disease Chronic gout Diabetes mellitus type 2, insulin requiring Cervical stenosis Chronic back pain Generalized anxiety disorder SURGICAL HISTORY Coronary artery bypass grafting Cholecystectomy Hysterectomy D&C Bilateral foot surgery to remove tumors Permanent pacemaker 09/29 SOCIAL HISTORY Patient is lives with her , functionally active denies any need a walker or assistance FAMILY HISTORY Mother at age 84 from Alzheimer's, old age. No coronary artery disease, no diabetes, history of breast cancer. Father in his early 80s from diabetes, occasions. No coronary artery disease. Patient had total of 4 brothers. One at 69 from alcohol abuse. One at age 8 from kidney failure, a third brother has of unknown cause. One brother is alive at age 75 with no major medical problems. Patient has one sister with Crohn's 1 with irritable bowel syndrome. Patient does not have any children. PHYSICAL EXAMINATION Gen: This is this is an 85-year-old female. Patient is resting in bed appears to be comfortable and in no acute distress. Family members are at bedside. HEENT: Head is atraumatic, normocephalic. Pupils equal, round. Sclerae is anicteric. Oral mucous membranes are very dry. NECK: Supple. No JVP. Decreased carotid upstroke bilaterally. No lymphadenopathy. No thyromegaly. LUNGS: Decreased breath sounds at the bases. No wheezes or rhonchi. No intercostal retractions. No accessory muscle usage. HEART: Permanent pacemaker located in the left upper precordium, first heart sound is depressed, second heart sound is normal, there is systolic ejection murmur 3/6 located in the right upper sternal border didn't to the neck. ABDOMEN: Soft. Bowel sounds are present. No masses. No tenderness. EXTREMITIES: No pedal edema. No calf tenderness. Right lower extremity is shortened with external rotation. Dorsalis pedis palpable bilaterally. NEUROLOGICAL: Patient is awake, alert and oriented x3. Cranial nerves 2 through 12 are grossly intact. Muscle power 4 out of 5 in upper extremities and 3 out of 5 in left lower extremities ASSESSMENT AND PLAN 1. Acute metabolic encephalopathy most likely secondary to hypoglycemia status post glucagon, possible TIA, dehydration. Humalog 7525 placed on hold. Nov oLog scale before meals and at bedtime only. Consult with neurology, PT, OT consults. 2. Leukocytosis of unclear etiology. Possibly related to right heel wound. Consult with wound care center. 3. Carotid stenosis 50-70 or greater percent. Consult with vascular surgery. 4. Right intertrochanteric fracture secondary to mechanical fall Status post right intramedullary hip screw on 01/01. Consult with orthopedics. 2. Thrombocytopenia. Repeat CBC tomorrow. 3. Diabetes mellitus type 2 insulin requiring, uncontrolled with hyperglycemia. Hemoglobin A1c 9.6. Patient will be placed on NovoLog scale before meals and at bedtime, resume NovoLog 75/25 tomorrow morning at 30 units 3 times daily. 4. History of coronary artery disease status post CABG in 2011 followed by stenting. Cardiology consult. Patient resumed on Coreg and Lipitor. 5. Chronic systolic heart failure. IV fluids increased to 75 mL per hour. 6. Valvular heart disease with severe aortic stenosis, moderate to severe tricuspid regurgitation and severe pulmonary hypertension. 7. Hypertension, hypertensive cardiovascular disease. Continue Coreg, Cardura 4 mg daily. 8. Hyperlipidemia. Continue Lipitor. 9. Chronic kidney disease stage III. 10. Anemia of chronic disease. 11. Chronic gout. Continue allopurinol 100 mg twice daily. 12. COVID-19 testing negative. Patient will be admitted to the hospital for a minimum of 2 night stay. DISCHARGE PLAN Return to [facility] to complete subacute rehab. Impression and plan of care have been directed as dictated by the signing physician. Talia Schneider nurse practitioner acting as scribe for signing physician. Past Medical History Past Medical History: Coronary Artery Disease (CAD), Heart Failure, Diabetes Mellitus, GERD/Reflux, Hyperlipidemia, Hypertension, Myocardial Infarction ([place]), Osteoarthritis (OA), Renal Disease Additional Past Medical History / Comment(s): History of valvular heart disease with aortic stenosis, moderate mitral regurgitation stenosis, coronary artery disease with previous [place] and previous bypass surgery, chronic anemia, chronic osteoarthritis and neck pain, diabetes mellitus, hypertension and hyperlipidemia, 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 Last Myocardial Infarction Date:: 2011 History of Any Multi-Drug Resistant Organisms: None Reported Past Surgical History: Cholecystectomy, Coronary Bypass/CABG, Hysterectomy Additional Past Surgical History / Comment(s): 8x D&C, CABG 7 Blockages, bilateral foot surgery to remove tumors Past Anesthesia/Blood Transfusion Reactions: No Reported Reaction Type of Cardiac Device: Permanent Pacemaker Device Placement Date:: 09/15/19 Past Psychological History: No Psychological Hx Reported Additional Psychological History / Comment(s): Pt resides with her spouse. She is independent. She uses a walker for ambulation. Smoking Status: Never smoker Past Alcohol Use History: Occasional Additional Past Alcohol Use History / Comment(s): Patient is and lives with her . Past Drug Use History: None Reported - Past Family History Mother Family Medical History: Cancer, Diabetes Mellitus Additional Family Medical History / Comment(s): Mother at age 84 from Alzheimer's, old age. No coronary artery disease, no diabetes, history of breast cancer. Father Family Medical History: Congestive Heart Failure (CHF) Additional Family Medical History / Comment(s): Father in his early 80s from diabetes, occasions. No coronary artery disease. Brother(s) Family Medical History: Cancer (Patient is lives with her , functionally active denies any need a walker or assistance) Additional Family Medical History / Comment(s): Patient had total of 4 brothers. One at 69 from alcohol abuse. One at age 8 from kidney failure, a third brother has of unknown cause. One brother is alive at age 75 with no major medical problems. Sister(s) Additional Family Medical History / Comment(s): Patient has one sister with Crohn's 1 with irritable bowel syndrome. Patient does not have any children. Medications and Allergies Home Medications Medication Instructions Recorded Confirmed Type Allopurinol 100 mg PO BID@0800,1700 03/05/14 01/15/21 History Atorvastatin [Lipitor] 80 mg PO HS 09/24/14 01/15/21 History Doxazosin [Cardura] 4 mg PO DAILY@0800 12/10/18 01/15/21 History Apixaban [Eliquis] 2.5 mg PO BID@0800,1700 01/01/21 01/15/21 History Dapagliflozin Propanediol [Farxiga] 5 mg PO DAILY@0800 01/01/21 01/15/21 History Insulin NPL/Insulin Lispro 30 unit SQ AC-TID 01/01/21 01/15/21 History [humaLOG MIX 75-25 VIAL] Nitroglycerin Sl Tabs [Nitrostat] 0.4 mg SL Q5M PRN 01/01/21 01/15/21 History HYDROcodone/APAP 5-325MG [[place] 1 tab PO Q8HR PRN 7 Days #21 tab 01/03/21 01/15/21 Rx 5-325] Docusate [Colace] 100 mg PO BID@0800,1700 01/15/21 01/15/21 History Doxycycline Monohydrate 100 mg PO BID@0800,1700 01/15/21 01/15/21 History Ferrous Sulfate [Feosol] 325 mg PO DAILY@0800 01/15/21 01/15/21 History Furosemide [Lasix] 40 mg PO BID@0600,1400 01/15/21 01/15/21 History Magnesium Hydroxide [Milk of 7,200 mg PO Q48H PRN 01/15/21 01/15/21 History Magnesia Concentrate] Na Phos,M-B/Na Phos,Di-Ba [Fleet 133 ml RECTAL DAILY PRN 01/15/21 01/15/21 History Adult] Pantoprazole [Protonix] 40 mg PO DAILY@0600 01/15/21 01/15/21 History bisacodyL [Dulcolax] 10 mg RECTAL DAILY PRN 01/15/21 01/15/21 History carvediloL [Coreg] 6.25 mg PO BID@0800,1700 01/15/21 01/15/21 History Allergies Allergy/AdvReac Type Severity Reaction Status Date / Time cortisone Allergy Rash/Hives Verified 01/15/21 08:09 morphine Allergy Unknown Verified 01/15/21 08:09 Penicillins Allergy Rash/Hives Verified 01/15/21 08:09 Physical Exam Vitals: Vital Signs Temp Pulse Resp BP Pulse Ox 01/15/21 07:33 100.3 F H 61 16 195/57 100 01/15/21 07:03 100.2 F H 57 L 16 193/60 100 01/15/21 05:03 59 L 18 191/87 97 01/15/21 04:45 99.7 F H 60 16 173/56 98 01/15/21 04:30 99.7 F H 68 16 154/50 96 01/15/21 04:15 99.6 F 67 16 149/63 97 01/15/21 04:00 99.8 F H 66 16 135/57 97 01/15/21 03:45 99.8 F H 75 20 01/15/21 03:33 99.8 F H 74 18 177/49 100 Intake and Output 01/14/21 01/15/21 01/15/21 22:59 06:59 14:59 Other: Weight 73.028 kg Results CBC & Chem 7: 01/15/21 03:58 01/15/21 03:58 Labs: Abnormal Lab Results - Last 24 Hours (Table) 01/15/21 01/15/21 01/15/21 Range/Units 03:45 03:58 03:58 WBC 18.3 H (3.8-10.6) k/uL RBC 3.10 L (3.80-5.40) m/uL Hgb 10.0 L D (11.4-16.0) gm/dL Hct 31.9 L (34.0-46.0) % MCV 102.7 H (80.0-100.0) fL RDW 17.0 H (11.5-15.5) % Plt Count 464 H D (150-450) k/uL Neutrophils # 15.9 H (1.3-7.7) k/uL APTT 18.8 L (22.0-30.0) sec Sodium (137-145) mmol/L BUN (7-17) mg/dL Creatinine (0.52-1.04) mg/dL Glucose (74-99) mg/dL POC Glucose (mg/dL) 120 H (75-99) mg/dL Total Bilirubin (0.2-1.3) mg/dL AST (14-36) U/L Alkaline Phosphatase (38-126) U/L Troponin I (0.000-0.034) ng/mL Total Protein (6.3-8.2) g/dL Albumin (3.5-5.0) g/dL Urine Glucose (UA) (Negative) Urine Opiates Screen (NotDetected) 01/15/21 01/15/21 01/15/21 Range/Units 03:58 03:58 05:17 WBC (3.8-10.6) k/uL RBC (3.80-5.40) m/uL Hgb (11.4-16.0) gm/dL Hct (34.0-46.0) % MCV (80.0-100.0) fL RDW (11.5-15.5) % Plt Count (150-450) k/uL Neutrophils # (1.3-7.7) k/uL APTT (22.0-30.0) sec Sodium 135 L (137-145) mmol/L BUN 41 H (7-17) mg/dL Creatinine 1.07 H (0.52-1.04) mg/dL Glucose 113 H (74-99) mg/dL POC Glucose (mg/dL) (75-99) mg/dL Total Bilirubin 1.5 H (0.2-1.3) mg/dL AST 39 H (14-36) U/L Alkaline Phosphatase 133 H (38-126) U/L Troponin I 0.064 H* (0.000-0.034) ng/mL Total Protein 5.5 L (6.3-8.2) g/dL Albumin 3.0 L (3.5-5.0) g/dL Urine Glucose (UA) 3+ H (Negative) Urine Opiates Screen Detected H (NotDetected)
[2021-01-15] MEDS ORDERED: HYDROcodone/APAP 5-325MG 1 EACH TAB PO PRN (15:24)
[2021-01-15 15:41] LABS: Glucose,Whole Blood 58 mg/dL (75-99)
[2021-01-15 16:04] LABS: Glucose,Whole Blood 81 mg/dL (75-99)
[2021-01-15 16:41] LABS: Glucose,Whole Blood 97 mg/dL (75-99)
[2021-01-15] MEDS: DOCUSATE 100 MG CAP PO SCH (17:02)
[2021-01-15] MEDS: APIXABAN 2.5 MG TABLET PO SCH (17:02)
[2021-01-15] MEDS: carvediloL 6.25 MG TAB PO SCH (17:02)
[2021-01-15] MEDS: allopurinoL 100 MG TAB PO SCH (17:02)
--- NOTE | 2021-01-15 17:47 | P.PN ---
Progress Note - Text Progress Note Date: 01/15/21 Agree with written consult by Shaylee Zendejas PA-C. I also saw and examined Mrs. Sainz. Her incisions are intact with no active drainage and mild brennen-incisional erythema more consistent with post-operative hyperemia and not infection. Both legs appear swollen and she has diffuse, BILATERAL lower extremity thigh and calf tenderness. I have a LOW SUSPICION that she has a deep infection around her right hip. We will order hip x-rays and bilateral LE ultrasounds to rule out DVT. I would also like her to have protective boots to off-load her heel to prevent worsening of her ulcer. We will continue to follow.
--- NOTE | 2021-01-15 18:56 | P.CNOR ---
History of Present Illness - HPI Consult date: 01/15/21 History of present illness: This patient is an 85-year-old female with past medical history of coronary artery disease with previous bypass surgery, hypertension, chronic kidney disease, diabetes, hypertension, hyperlipidemia that presented to [facility] emergency department on 01/15/21 via EMS with complaints of altered mental status from [facility]. She was found to be altered around 3AM this morning at [facility]. Her glucose was found to be 34. She was subsequently transferred to [facility] ER. Patient was admitted under the care of internal medicine with a consult placed to neurology, vascular, wound care. Orthopedics was consulted for evaluation of her right hip. She recently underwent operative fixation of right intertrochanteric hip fracture with short intramedullary hip screw on 01/02/21. Patient is seen and examined bedside with Dr. Conroy. She notes mild pain in the right lower extremity. She appears mildly confused. Vital signs stable. Past Medical History Past Medical History: Coronary Artery Disease (CAD), Heart Failure, Diabetes Mellitus, GERD/Reflux, Hyperlipidemia, Hypertension, Myocardial Infarction ([place]), Osteoarthritis (OA), Renal Disease Additional Past Medical History / Comment(s): History of valvular heart disease with aortic stenosis, moderate mitral regurgitation stenosis, coronary artery disease with previous [place] and previous bypass surgery, chronic anemia, chronic osteoarthritis and neck pain, diabetes mellitus, hypertension and hyperlipidemia, 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 Last Myocardial Infarction Date:: 2011 History of Any Multi-Drug Resistant Organisms: None Reported Past Surgical History: Cholecystectomy, Coronary Bypass/CABG, Hysterectomy Additional Past Surgical History / Comment(s): 8x D&C, CABG 7 Blockages, bilateral foot surgery to remove tumors Past Anesthesia/Blood Transfusion Reactions: No Reported Reaction Type of Cardiac Device: Permanent Pacemaker Device Placement Date:: 09/15/19 Past Psychological History: No Psychological Hx Reported Additional Psychological History / Comment(s): Pt resides with her spouse. She is independent. She uses a walker for ambulation. Smoking Status: Never smoker Past Alcohol Use History: Occasional Additional Past Alcohol Use History / Comment(s): Patient is and lives with her . Past Drug Use History: None Reported - Past Family History Mother Family Medical History: Cancer, Diabetes Mellitus Additional Family Medical History / Comment(s): Mother at age 84 from Alzheimer's, old age. No coronary artery disease, no diabetes, history of breast cancer. Father Family Medical History: Congestive Heart Failure (CHF) Additional Family Medical History / Comment(s): Father in his early 80s from diabetes, occasions. No coronary artery disease. Brother(s) Family Medical History: Cancer (Patient is lives with her , functionally active denies any need a walker or assistance) Additional Family Medical History / Comment(s): Patient had total of 4 brothers. One at 69 from alcohol abuse. One at age 8 from kidney failure, a third brother has of unknown cause. One brother is alive at age 75 with no major medical problems. Sister(s) Additional Family Medical History / Comment(s): Patient has one sister with Crohn's 1 with irritable bowel syndrome. Patient does not have any children. Medications and Allergies Home Medications Medication Instructions Recorded Confirmed Type Allopurinol 100 mg PO BID@0800,1700 03/05/14 01/15/21 History Atorvastatin [Lipitor] 80 mg PO HS 09/24/14 01/15/21 History Doxazosin [Cardura] 4 mg PO DAILY@0800 12/10/18 01/15/21 History Apixaban [Eliquis] 2.5 mg PO BID@0800,1700 01/01/21 01/15/21 History Dapagliflozin Propanediol [Farxiga] 5 mg PO DAILY@0800 01/01/21 01/15/21 History Insulin NPL/Insulin Lispro 30 unit SQ AC-TID 01/01/21 01/15/21 History [humaLOG MIX 75-25 VIAL] Nitroglycerin Sl Tabs [Nitrostat] 0.4 mg SL Q5M PRN 01/01/21 01/15/21 History HYDROcodone/APAP 5-325MG [[place] 1 tab PO Q8HR PRN 7 Days #21 tab 01/03/21 01/15/21 Rx 5-325] Docusate [Colace] 100 mg PO BID@0800,1700 01/15/21 01/15/21 History Doxycycline Monohydrate 100 mg PO BID@0800,1700 01/15/21 01/15/21 History Ferrous Sulfate [Feosol] 325 mg PO DAILY@0800 01/15/21 01/15/21 History Furosemide [Lasix] 40 mg PO BID@0600,1400 01/15/21 01/15/21 History Magnesium Hydroxide [Milk of 7,200 mg PO Q48H PRN 01/15/21 01/15/21 History Magnesia Concentrate] Na Phos,M-B/Na Phos,Di-Ba [[place] 133 ml RECTAL DAILY PRN 01/15/21 01/15/21 History Adult] Pantoprazole [Protonix] 40 mg PO DAILY@0600 01/15/21 01/15/21 History bisacodyL [Dulcolax] 10 mg RECTAL DAILY PRN 01/15/21 01/15/21 History carvediloL [Coreg] 6.25 mg PO BID@0800,1700 01/15/21 01/15/21 History Allergies Allergy/AdvReac Type Severity Reaction Status Date / Time cortisone Allergy Rash/Hives Verified 01/15/21 08:09 morphine Allergy Unknown Verified 01/15/21 08:09 Penicillins Allergy Rash/Hives Verified 01/15/21 08:09 Physical Examination On examination, patient is laying in bed in no apparent distress. She is alert and awake, although appears confused. Her head appears normocephalic, atraumatic. Her breathing appears non-labored. On inspection of the right hip, there are 3 healing surgical incisions with intact balbina. There is mild erythema of the proximal incision, although it appears to be normal healing and there are no signs of infection. The thigh is soft and compressible. Motor and sensory function is intact of the right lower extremity. Right lower extremity is warm and well perfused. There is tenderness to palpation of the bilateral calves. Results - Labs Labs: Abnormal Lab Results - Last 24 Hours (Table) 01/15/21 01/15/21 01/15/21 Range/Units 03:45 03:58 03:58 WBC 18.3 H (3.8-10.6) k/uL RBC 3.10 L (3.80-5.40) m/uL Hgb 10.0 L D (11.4-16.0) gm/dL Hct 31.9 L (34.0-46.0) % MCV 102.7 H (80.0-100.0) fL RDW 17.0 H (11.5-15.5) % Plt Count 464 H D (150-450) k/uL Neutrophils # 15.9 H (1.3-7.7) k/uL APTT 18.8 L (22.0-30.0) sec Sodium (137-145) mmol/L BUN (7-17) mg/dL Creatinine (0.52-1.04) mg/dL Glucose (74-99) mg/dL POC Glucose (mg/dL) 120 H (75-99) mg/dL Total Bilirubin (0.2-1.3) mg/dL AST (14-36) U/L Alkaline Phosphatase (38-126) U/L Troponin I (0.000-0.034) ng/mL Total Protein (6.3-8.2) g/dL Albumin (3.5-5.0) g/dL Urine Glucose (UA) (Negative) Urine Opiates Screen (NotDetected) 01/15/21 01/15/21 01/15/21 Range/Units 03:58 03:58 05:17 WBC (3.8-10.6) k/uL RBC (3.80-5.40) m/uL Hgb (11.4-16.0) gm/dL Hct (34.0-46.0) % MCV (80.0-100.0) fL RDW (11.5-15.5) % Plt Count (150-450) k/uL Neutrophils # (1.3-7.7) k/uL APTT (22.0-30.0) sec Sodium 135 L (137-145) mmol/L BUN 41 H (7-17) mg/dL Creatinine 1.07 H (0.52-1.04) mg/dL Glucose 113 H (74-99) mg/dL POC Glucose (mg/dL) (75-99) mg/dL Total Bilirubin 1.5 H (0.2-1.3) mg/dL AST 39 H (14-36) U/L Alkaline Phosphatase 133 H (38-126) U/L Troponin I 0.064 H* (0.000-0.034) ng/mL Total Protein 5.5 L (6.3-8.2) g/dL Albumin 3.0 L (3.5-5.0) g/dL Urine Glucose (UA) 3+ H (Negative) Urine Opiates Screen Detected H (NotDetected) 01/15/21 01/15/21 Range/Units 13:57 15:39 WBC (3.8-10.6) k/uL RBC (3.80-5.40) m/uL Hgb (11.4-16.0) gm/dL Hct (34.0-46.0) % MCV (80.0-100.0) fL RDW (11.5-15.5) % Plt Count (150-450) k/uL Neutrophils # (1.3-7.7) k/uL APTT (22.0-30.0) sec Sodium (137-145) mmol/L BUN (7-17) mg/dL Creatinine (0.52-1.04) mg/dL Glucose (74-99) mg/dL POC Glucose (mg/dL) 62 L 58 L (75-99) mg/dL Total Bilirubin (0.2-1.3) mg/dL AST (14-36) U/L Alkaline Phosphatase (38-126) U/L Troponin I (0.000-0.034) ng/mL Total Protein (6.3-8.2) g/dL Albumin (3.5-5.0) g/dL Urine Glucose (UA) (Negative) Urine Opiates Screen (NotDetected) H & H 01/15/21 Range/Units 03:58 Hgb 10.0 L D (11.4-16.0) gm/dL Hct 31.9 L (34.0-46.0) % Coagulation 01/15/21 Range/Units 03:58 INR 1.0 (<1.2) Result Diagrams: 01/15/21 03:58 01/15/21 03:58 Assessment and Plan Assessment: Altered mental status Status-post perative fixation of right intertrochanteric hip fracture with short intramedullary hip screw on 01/02/21 Plan: - Patient was seen and examined bedside. Patient was also examined by Dr. Conroy. We have very low concern for infection. Her incisions display normal healing. Patient may continue to weight bear as tolerated on the right lower extremity with assistance and a walker. - We will obtain Doppler ultrasounds of the bilateral lower extremities to rule- out DVT. We will also obtain x-rays of the right hip. - Off-load right heel due to pressure ulcer. Wound care was consulted for management. - We will continue to follow.
[2021-01-15 20:24] LABS: Glucose,Whole Blood 128 mg/dL (75-99)
[2021-01-15] MEDS: ATORVASTATIN 80 MG TAB PO SCH (20:49)
--- NOTE | 2021-01-15 22:47 | US ---
EXAMINATION TYPE: US venous doppler duplex LE BI DATE OF EXAM: 01/15/2021 5:42 PM COMPARISON: NONE CLINICAL HISTORY: post op swelling. SIDE PERFORMED: Bilateral TECHNIQUE: The lower extremity deep venous system is examined utilizing real time linear array sonog nestor with graded compression, doppler sonography and color-flow sonography. VESSELS IMAGED: Common Femoral Vein Deep Femoral Vein Greater Saphenous Vein * Femoral Vein Popliteal Vein Small Saphenous Vein * Proximal Calf Veins (* superficial vessels) Right Leg: Negative for DVT Left Leg: Negative for DVT IMPRESSION: No sign of deep vein thrombosis in both legs.
--- NOTE | 2021-01-15 22:48 | XR ---
EXAMINATION TYPE: XR Hip Complete RT DATE OF EXAM: 01/15/2021 COMPARISON: NONE HISTORY: Hip surgery. Pain. TECHNIQUE: 2 views FINDINGS: There is intramedullary malvin and transverse screw fixing intertrochanteric fracture of the r ight femur. Components are in anatomic position.. There are lateral skin balbina. IMPRESSION: No complicating process seen.
[2021-01-16 06:22] LABS: Glucose,Whole Blood 136 mg/dL (75-99)
[2021-01-16] MEDS: INSULIN ASPART (NovoLOG) 100 UNIT/ML VIAL SQ SCH ×4 (06:33→20:21)
[2021-01-16] MEDS: PANTOPRAZOLE 40 MG TABLET PO SCH (06:33)
[2021-01-16] MEDS: SODIUM CHLORIDE 0.9% 1,000 ML IV SCH ×3 (06:34→20:21)
[2021-01-16 08:06] LABS: Albumin 2.4 g/dL (3.5-5.0); Total Bilirubin 1.1 mg/dL (0.2-1.3); Total Protein 4.9 g/dL (6.3-8.2)
[2021-01-16 08:20] LABS: Anisocytosis Slight; Basophils % (A) 0 %; Eosinophils # (A) 0.3 k/uL (0-0.7); Eosinophils % (A) 4 %; HCT 30.2 % (34.0-46.0); HGB 9.1 gm/dL (11.4-16.0); Hypochromasia Moderate; Lymphocytes # (A) 1.2 k/uL (1.0-4.8); Lymphocytes % (A) 16 %; MCH 32.1 pg (25.0-35.0); MCHC 30.2 g/dL (31.0-37.0); MCV 106.2 fL (80.0-100.0); Macrocytosis Marked; Mean Platelet Volume 8.4; Monocytes # (A) 0.5 k/uL (0-1.0); Monocytes % (A) 7 %; Neutrophils # (A) 5.2 k/uL (1.3-7.7); Neutrophils % (A) 71 %; Platelet Count 422 k/uL (150-450); RBC 2.84 m/uL (3.80-5.40); RDW 17.1 % (11.5-15.5); WBC 7.4 k/uL (3.8-10.6)
[2021-01-16] MEDS: DOXAZOSIN 4 MG TAB PO SCH (08:45)
[2021-01-16] MEDS: FERROUS SULFATE 325 MG TAB PO SCH (08:45)
[2021-01-16] MEDS: APIXABAN 2.5 MG TABLET PO SCH ×2 (08:45→17:15)
[2021-01-16] MEDS: hydrALAZINE HCL 50 MG TAB PO SCH ×3 (08:45→20:20)
[2021-01-16] MEDS: carvediloL 6.25 MG TAB PO SCH ×2 (08:45→17:15)
[2021-01-16] MEDS: allopurinoL 100 MG TAB PO SCH ×2 (08:45→17:15)
[2021-01-16] MEDS: DOCUSATE 100 MG CAP PO SCH ×2 (08:46→17:02)
[2021-01-16] MEDS: HYDROPHILIC CREAM 180 GM TUBE TOPICAL SCH (08:46)
[2021-01-16 08:57] LABS: Calcium 8.8 mg/dL (8.4-10.2)
[2021-01-16 11:20] LABS: Glucose,Whole Blood 223 mg/dL (75-99)
--- NOTE | 2021-01-16 11:54 | P.PN ---
Subjective Progress Note Date: 01/16/21 HISTORY OF PRESENT ILLNESS This is an 85-year-old female patient of Dr. Bill and Dr. Diana with past medical history of coronary artery disease status post CABG in 2011 foll owed by myocardial infarction, chronic systolic heart failure, valvular heart disease in the form of severe aortic stenosis and moderate to severe tricuspid regurgitation and severe pulmonary hypertension, hypertension, hypertensive cardiovascular disease, hyperlipidemia, chronic kidney disease stage III, anemia of chronic disease, chronic gout diabetes mellitus type 2 insulin requiring, cervical stenosis, chronic back pain, generalized anxiety disorder. 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 Patient was hospitalized the end of December due to right intertrochanteric fracture secondary to mechanical fall status post intramedullary hip screw on 01/[address] Conroy. She was given 1 unit of packed RBCs during her stay. Patient was stabilized and discharged to [facility] for subacute rehab. Patient has been doing well there until this morning when her blood sugar was found to be 34. This was around 3 AM there was change in mental status and patient was "babbling" with concern for TIA and patient was brought into [facility] for further evaluation. Family states that initially, she did not recognize family but after she received bag of IV fluids, she was able to state her family members names. Mati larios is complaining of nausea and feeling sick. Family stated that she has been eating well at the half-way except for yesterday she was not drinking very much as there was no water in her room. Blood sugar in the emergency center was 120. WBC 18.3, hemoglobin 10, platelet count 464. INR 1.0. Sodium 135, BUN 41 and creatinine 1.07. Total bilirubin 1.5, AST 39, ALT 26, alk phosphatase 133. Troponins are 0.064. Patient is status post 2 L of IV fluids. Chest x-ray reveals increased pulmonary interstitial density similar to old exam. Probable pulmonary fibrosis. Mild heart failure not entirely excluded. Cardiomegaly unchanged. CAT scan of the brain showed cerebral atrophy. No acute intracranial abnormality. No change. Mild right maxillary sinusitis unchanged. CT angiogram of the head and neck revealed limited exam. No intracranial angiographic abnormality. Limited evaluation of the neck. Likely more than 50 of both internal carotid arteries. Stenosis could be more than 70%. Patient is seen today in the emergency center waiting for a bed on the heart attack stepdown unit, consults with vascular surgery, neurology and orthopedic. 01/16: Ultrasound of the bilateral lower extremity negative for DVT. Patient has been seen by multiple consultants. Wound care has ordered triad and heel protectors which are in place. Orthopedics are following and hip x-ray has been completed. Patient is to be weightbearing as tolerated on the right lower extremity with assistance and walker. No concern at this time for infection. Hip x-ray showed no complication. Patient has been evaluated by neurology with recommendations to avoid hypoglycemia, vascular surgery. 4 possible ICA stenosis, continue eliquis and Lipitor. Vascular surgery has followed and patient has known carotid stenosis and follows the office with Dr. Diana. Plan to continue medical management and recommended revascularization if greater than 80% and acceptable surgical candidate. Patient is seen today sitting up eating her breakfast. She denies having any hip pain. No nausea or vomiting and no abdominal pain. Blood pressure remains elevated for which hydralazine increased frequency to 100 mg 3 times daily. Blood sugars have been running 81- 223. Discharge plan is return to [facility] tomorrow. REVIEW OF SYSTEMS Constitutional: No fever, no chills, no night sweats. No weight change. Noted weakness, reported fatigue reported lethargy. No daytime sleepiness. EENT: No headache. No blurred vision or double vision, no loss of vision. No loss of Hearing, no ringing in the ears, no dizziness. No nasal drainage or congestion. No epistaxis. No sore throat. Lungs: No shortness of breath, cough, no sputum production. No wheezing. Cardiovascular: No chest pain, no lower extremity edema. No palpitations. No paroxysmal nocturnal dyspnea. No orthopnea. No lightheadedness or dizziness. No syncopal episodes. Abdominal: Denies abdominal pain. Denies nausea, no vomiting. No diarrhea. No constipation. No bloody or tarry stools.. No loss of appetite. Decreased water intake yesterday. Genitourinary: No dysuria, increased frequency, urgency. No urinary retention. Musculoskeletal: No myalgias. Reported muscle weakness, reported gait dysfun ction, no frequent falls. No back pain. No neck pain. Denies right hip pain. Integumentary: Noted right hip surgical wound, right heel ulcer/wound, no lesions. No rash or pruritus. No unusual bruising. No change in hair or nails. Neurologic: No aphasia. No facial droop. No change in mentation. No head injury. No headache. No paralysis. No paresthesia. Psychiatric: No depression. No anxiety. No mood swings. Endocrine: Noted abnormal blood sugars. No weight change. No excessive sweating or thirst. No cold intolerance. PHYSICAL EXAMINATION Gen: This is this is an 85-year-old female. Patient is resting in bed appears to be comfortable and in no acute distress. HEENT: Head is atraumatic, normocephalic. Pupils equal, round. Sclerae is anicteric. Oral mucous membranes are very dry. NECK: Supple. No JVP. Decreased carotid upstroke bilaterally. No lymphadenopathy. No thyromegaly. LUNGS: Decreased breath sounds at the bases. No wheezes or rhonchi. No intercostal retractions. No accessory muscle usage. HEART: Permanent pacemaker located in the left upper precordium, first heart sound is depressed, second heart sound is normal, there is systolic ejection murmur 3/6 located in the right upper sternal border didn't to the neck. ABDOMEN: Soft. Bowel sounds are present. No masses. No tenderness. EXTREMITIES: No pedal edema. No calf tenderness. Right lower extremity is shortened with external rotation. Dorsalis pedis palpable bilaterally. NEUROLOGICAL: Patient is awake, alert and oriented x3. Cranial nerves 2 through 12 are grossly intact. Muscle power 4 out of 5 in upper extremities and 3 out of 5 in left lower extremities ASSESSMENT AND PLAN 1. Acute metabolic encephalopathy most likely secondary to hypoglycemia status post glucagon, possible TIA ruled out, dehydration. Humalog 7525 placed on hold. Continue NovoLog scale before meals and at bedtime only. Consult with neurology, PT, OT consults. 2. Leukocytosis of unclear etiology. Possibly related to right heel wound. Consult with wound care center. Local wound care with triad, heel protectors. 3. Carotid stenosis 50-70 or greater percent. Consult with vascular surgery appreciated. Patient is monitored by Dr. Diana.. 4. Right intertrochanteric fracture secondary to mechanical fall Status post right intramedullary hip screw on 01/01. Consult with orthopedics appreciated. Patient is weightbearing as tolerated to the right lower extremity with assistance of walker. 2. Thrombocytopenia. Repeat CBC tomorrow. 3. Diabetes mellitus type 2 insulin requiring, uncontrolled with hyperglycemia. Hemoglobin A1c 9.6. Patient will be placed on NovoLog scale before meals and at bedtime, resume NovoLog 75/25 tomorrow morning at 30 units 3 times daily. 4. History of coronary artery disease status post CABG in 2011 followed by stenting. Patient resumed on Coreg and Lipitor. 5. Chronic systolic heart failure. IV fluids increased to 75 mL per hour. 6. Valvular heart disease with severe aortic stenosis, moderate to severe tricuspid regurgitation and severe pulmonary hypertension. 7. Hypertension, hypertensive cardiovascular disease. Continue Coreg, Cardura 4 mg daily. 8. Hyperlipidemia. Continue Lipitor. 9. Chronic kidney disease stage III. 10. Anemia of chronic disease. 11. Chronic gout. Continue allopurinol 100 mg twice daily. 12. COVID-19 testing negative. Patient will be admitted to the hospital for a minimum of 2 night stay. DISCHARGE PLAN Return to [facility] to complete subacute rehab on Wednesday. Impression and plan of care have been directed as dictated by the signing physician. Talia Schneider nurse practitioner acting as scribe for signing phys ician. Objective - Vital Signs Vital signs: Vital Signs Temp 97.5 F L 01/16/21 08:05 Pulse 64 01/16/21 08:05 Resp 20 01/16/21 08:05 BP 189/49 01/16/21 08:05 Pulse Ox 98 01/16/21 08:05 Intake & Output 01/15/21 01/16/21 01/16/21 18:59 06:59 18:59 Intake Total 20 130 Balance 20 130 Weight 73.028 kg 76 kg Intake: Intake, IV Titration 130 Amount Sodium Chloride 0.9% 1, 130 000 ml @ 130 mls/hr IV . Q7H42M [facility] Rx#:[id number] Oral 20 Other: Voiding Method External Catheter # Voids 200 3 - Labs CBC & Chem 7: 01/16/21 07:27 01/16/21 07:27 Labs: Abnormal Lab Results - Last 24 Hours (Table) 01/15/21 01/15/21 01/15/21 Range/Units 13:57 15:39 16:20 ESR 42 H (0-20) mm/hr POC Glucose (mg/dL) 62 L 58 L (75-99) mg/dL 01/15/21 01/16/21 Range/Units 20:22 06:21 ESR (0-20) mm/hr POC Glucose (mg/dL) 128 H 136 H (75-99) mg/dL
--- NOTE | 2021-01-16 12:53 | P.PN ---
Subjective Progress Note Date: 01/16/21 Patient was seen and examined sitting up in bed. She is more awake and alert today. She is tolerating her breakfast. There are no focal deficits noted. She had a venous Doppler of the bilateral lower extremities yesterday which were negative for DVT. Objective - Vital Signs Vital signs: Vital Signs Temp 97.5 F L 01/16/21 08:05 Pulse 64 01/16/21 08:05 Resp 20 01/16/21 08:05 BP 189/49 01/16/21 08:05 Pulse Ox 98 01/16/21 08:05 Intake & Output 01/15/21 01/16/21 01/16/21 18:59 06:59 18:59 Intake Total 20 130 Balance 20 130 Weight 73.028 kg 76 kg Intake: Intake, IV Titration 130 Amount Sodium Chloride 0.9% 1, 130 000 ml @ 130 mls/hr IV . Q7H42M [facility] Rx#:[id number] Oral 20 Other: Voiding Method External Catheter # Voids 200 3 - Exam General appearance: The patient is alert, oriented, in no acute distress. HET: Head is normocephalic and atraumatic. Pupils are equal and reactive. Oropharynx is clear without lesions. Neck: Supple without lymphadenopathy. Trachea midline. Heart: S1 S2. Regular rate and rhythm. Lungs: Clear to auscultation. Extremities: Normal skin color and turgor. No cyanosis, rash, ulceration, clubbing, or edema. Radial and pedal pulses are 2/4 bilaterally. Neurological: No focal deficits. Alert and oriented 3. Strength and sensation are grossly intact. - Labs CBC & Chem 7: 01/16/21 07:27 01/16/21 07:27 Labs: Abnormal Lab Results - Last 24 Hours (Table) 01/15/21 01/15/21 01/15/21 Range/Units 13:57 15:39 16:20 ESR 42 H (0-20) mm/hr Sodium (137-145) mmol/L Chloride (98-107) mmol/L Carbon Dioxide (22-30) mmol/L BUN (7-17) mg/dL Glucose (74-99) mg/dL POC Glucose (mg/dL) 62 L 58 L (75-99) mg/dL AST (14-36) U/L Total Protein (6.3-8.2) g/dL Albumin (3.5-5.0) g/dL 01/15/21 01/16/21 01/16/21 Range/Units 20:22 06:21 07:27 ESR (0-20) mm/hr Sodium 135 L (137-145) mmol/L Chloride 109 H (98-107) mmol/L Carbon Dioxide 21 L (22-30) mmol/L BUN 33 H (7-17) mg/dL Glucose 123 H (74-99) mg/dL POC Glucose (mg/dL) 128 H 136 H (75-99) mg/dL AST 48 H (14-36) U/L Total Protein 4.9 L (6.3-8.2) g/dL Albumin 2.4 L (3.5-5.0) g/dL Assessment and Plan Assessment: 1. Bilateral internal carotid artery stenosis 2. Altered mental status changes, likely related to hypoglycemia 3. Hypoglycemia 4. History diabetes mellitus 5. History of coronary artery disease 6. History of hyperlipidemia Plan: 1. Continue symptomatic and supportive care 2. Carotid duplex ordered and reviewed. 3. Continue high-dose statin and Eliquis 4. Neurology on consult, appreciate their recommendations 5. Imaging suboptimal with known carotid stenosis. Recommend correlation with outpatient imaging done with . No indication for any vascular surgical intervention at this time. Patient may follow-up with Dr. Echavarria for further monitoring and surveillance. Thank you for this consultation, we will adenopathy this time. The impression and plan of care has been dictated as directed. Dr. Reyez I performed a history and examination of this patient, discussed the same with the dictator. I agree with the dictator's note ,documented as a scribe. Any additional findings or plans will be noted.
[2021-01-16 14:53] LABS: Poikilocytosis (M) Present
[2021-01-16 16:59] LABS: Glucose,Whole Blood 195 mg/dL (75-99)
[2021-01-16] MEDS: INSULN ASP PRT/INSULIN ASPART 100 UNIT/ML 10 ML VIAL SQ SCH (17:14)
[2021-01-16 20:18] LABS: Glucose,Whole Blood 132 mg/dL (75-99)
[2021-01-16] MEDS: ATORVASTATIN 80 MG TAB PO SCH (20:20)
[2021-01-16 20:55] LABS: Vitamin B12 >2000.0 pg/mL (200.0-944.0)
--- NOTE | 2021-01-16 23:10 | P.PN ---
Subjective Progress Note Date: 01/16/21 Patient was seen for a follow-up. Patient is much more alert and awake. Offers no new complaints. States the pain in the right leg is much better, rates 4/10. Patient still slightly confused. Patient states that she traveled around today. When I asked where she traveled, she states that she went for a ride to countryside today. She thinks she is in [place]. And the year is 1975. Telemetry monitoring showing dual paced rhythm or V-paced rhythm with some PVCs. Objective - Vital Signs Vital signs: Vital Signs Temp 97.5 F L 01/16/21 08:05 Pulse 64 01/16/21 11:52 Resp 18 01/16/21 11:52 BP 159/53 01/16/21 11:52 Pulse Ox 98 01/16/21 11:52 Intake & Output 01/15/21 01/16/21 01/16/21 18:59 06:59 18:59 Intake Total 20 130 240 Output Total 650 Balance 20 130 -410 Weight 73.028 kg 76 kg Intake: Intake, IV Titration 130 Amount Sodium Chloride 0.9% 1, 130 000 ml @ 130 mls/hr IV . Q7H42M [facility] Rx#:[id number] Oral 20 240 Output: Urine 650 Other: Voiding Method External Catheter External Catheter # Voids 200 3 # Bowel Movements 1 - Exam Patient is alert and awake. She is confused, states it is the year 1975 and that she is in [place]. She could not tell what city in [place] she is in. She knows name of the current president. Could not tell me what building she is in. Speech and language functions are normal. No aphasia or dysarthria. Her pupils are round and reacting, visual redding are full, face is symmetric and tongue protrudes to the midline. Hearing is slightly decreased. On muscle strength testing, the strength is normal in the upper limbs. Right leg was not checked. Distally left foot is normal. Sensations equal. - Labs CBC & Chem 7: 01/16/21 07:27 01/16/21 07:27 Labs: Abnormal Lab Results - Last 24 Hours (Table) 01/15/21 01/15/21 01/15/21 Range/Units 15:39 16:20 20:22 RBC (3.80-5.40) m/uL Hgb (11.4-16.0) gm/dL Hct (34.0-46.0) % MCV (80.0-100.0) fL MCHC (31.0-37.0) g/dL RDW (11.5-15.5) % Macrocytosis ESR 42 H (0-20) mm/hr Sodium (137-145) mmol/L Chloride (98-107) mmol/L Carbon Dioxide (22-30) mmol/L BUN (7-17) mg/dL Glucose (74-99) mg/dL POC Glucose (mg/dL) 58 L 128 H (75-99) mg/dL AST (14-36) U/L Total Protein (6.3-8.2) g/dL Albumin (3.5-5.0) g/dL 01/16/21 01/16/21 01/16/21 Range/Units 06:21 07:27 07:27 RBC 2.84 L (3.80-5.40) m/uL Hgb 9.1 L (11.4-16.0) gm/dL Hct 30.2 L (34.0-46.0) % MCV 106.2 H (80.0-100.0) fL MCHC 30.2 L (31.0-37.0) g/dL RDW 17.1 H (11.5-15.5) % Macrocytosis Marked A ESR (0-20) mm/hr Sodium 135 L (137-145) mmol/L Chloride 109 H (98-107) mmol/L Carbon Dioxide 21 L (22-30) mmol/L BUN 33 H (7-17) mg/dL Glucose 123 H (74-99) mg/dL POC Glucose (mg/dL) 136 H (75-99) mg/dL AST 48 H (14-36) U/L Total Protein 4.9 L (6.3-8.2) g/dL Albumin 2.4 L (3.5-5.0) g/dL 01/16/21 Range/Units 11:18 RBC (3.80-5.40) m/uL Hgb (11.4-16.0) gm/dL Hct (34.0-46.0) % MCV (80.0-100.0) fL MCHC (31.0-37.0) g/dL RDW (11.5-15.5) % Macrocytosis ESR (0-20) mm/hr Sodium (137-145) mmol/L Chloride (98-107) mmol/L Carbon Dioxide (22-30) mmol/L BUN (7-17) mg/dL Glucose (74-99) mg/dL POC Glucose (mg/dL) 223 H (75-99) mg/dL AST (14-36) U/L Total Protein (6.3-8.2) g/dL Albumin (3.5-5.0) g/dL Microbiology - Last 24 Hours (Table) 01/15/21 08:23 Blood Culture - Preliminary Blood No Growth after 24 hours Assessment and Plan Assessment: * Altered mental status, most likely related to acute hypoglycemia with blood sugar of 34 noted in the rehab facility. Examination is nonfocal. * Encephalopathy, due to hypoglycemia, severe pain, possible medication related. Her mentation appears to be improved, but still patient is confused. * Status post right hip surgery on 01/02/2021, with subsequent severe pain and swelling in the right leg. Rule out infection. * Possible bilateral ICA stenosis 50-70% per CTA, relatively worse on the right per carotid Doppler. * Hypertension * Diabetes * Hyperlipidemia Plan: * Avoid episodes of hypoglycemia. Need to address her medication for diabetes. Will defer to IM. * ESR 42, B12 >2000, folic acid 19.40, MMA pending * Carotid Doppler revealed moderate to severe atherosclerotic change greater on the right redemonstrated. Difficult to exclude significant stenosis on the right. * Vascular surgery input appreciated. Recommending medical management and periodic surveillance with carotid Dopplers as outpatient. * Continue Eliquis 2.5 mg twice a day and Lipitor 80 mg. * Hemoglobin A1c 6.2 on 01/10/2021. TSH is normal. * Lipid panel with cholesterol 137, LDL 56, HDL 50 and triglycerides 155 on 12/05/2020. * Orthopedic surgery following. Very low concern for infection in the right hip . Venous Doppler of the lower extremity and x-ray of the hip recommended. * Ultrasound of the legs negative for DVT. * Neurologically clear. Continue PT and OT.
[2021-01-17 06:24] LABS: Glucose,Whole Blood 142 mg/dL (75-99)
[2021-01-17] MEDS: INSULIN ASPART (NovoLOG) 100 UNIT/ML VIAL SQ SCH ×4 (06:30→21:37)
[2021-01-17] MEDS: PANTOPRAZOLE 40 MG TABLET PO SCH (06:30)
[2021-01-17] MEDS: SODIUM CHLORIDE 0.9% 1,000 ML IV SCH (06:30)
[2021-01-17] MEDS: INSULN ASP PRT/INSULIN ASPART 100 UNIT/ML 10 ML VIAL SQ SCH ×2 (06:50→17:19)
[2021-01-17] MEDS: DOCUSATE 100 MG CAP PO SCH ×2 (08:21→17:19)
[2021-01-17] MEDS: DOXAZOSIN 4 MG TAB PO SCH (08:21)
[2021-01-17] MEDS: carvediloL 6.25 MG TAB PO SCH ×2 (08:21→17:19)
[2021-01-17] MEDS: APIXABAN 2.5 MG TABLET PO SCH ×2 (08:21→17:19)
[2021-01-17] MEDS: FERROUS SULFATE 325 MG TAB PO SCH (08:21)
[2021-01-17] MEDS: allopurinoL 100 MG TAB PO SCH ×2 (08:21→17:19)
[2021-01-17] MEDS: hydrALAZINE HCL 50 MG TAB PO SCH ×3 (08:22→21:36)
[2021-01-17] MEDS: HYDROPHILIC CREAM 180 GM TUBE TOPICAL SCH (08:27)
[2021-01-17 08:55] LABS: Anisocytosis Slight; HGB 10.1 gm/dL (11.4-16.0); Hypochromasia Marked; MCH 34.3 pg (25.0-35.0); MCHC 31.5 g/dL (31.0-37.0); MCV 108.7 fL (80.0-100.0); Macrocytosis Marked; Mean Platelet Volume 7.8; Platelet Count 461 k/uL (150-450); RBC 2.95 m/uL (3.80-5.40); RDW 16.6 % (11.5-15.5); WBC 10.7 k/uL (3.8-10.6)
--- NOTE | 2021-01-17 08:57 | XR ---
EXAMINATION TYPE: XR chest 1V portable DATE OF EXAM: 01/17/2021 Comparison: 01/15/2021 Clinical History: 85-year-old female possible pneumonia Findings: Median sternotomy wires are present. Post-CABG clips. Left anterior chest wall pacemaker generator wi th right atrial and ventricular leads. Heart borderline enlarged. Interstitial densities persist but show some improvement from prior exam. Some patchy retrocardiac and left basilar opacity is noted. No sizable pleural effusion. Impression: 1. Borderline cardiomegaly. Some interstitial changes remain but show improvement from prior exam. Co nsider residual mild CHF with pulmonary vascular congestion. 2. Patchy retrocardiac and left basilar atelectasis versus infiltrate. Pneumonia here should be exclu ded on clinical basis.
--- NOTE | 2021-01-17 08:58 | P.PN ---
Subjective Progress Note Date: 01/17/21 HISTORY OF PRESENT ILLNESS This is an 85-year-old female patient of Dr. Bill and Dr. Diana with past medical history of coronary artery disease status post CABG in 2011 foll owed by myocardial infarction, chronic systolic heart failure, valvular heart disease in the form of severe aortic stenosis and moderate to severe tricuspid regurgitation and severe pulmonary hypertension, hypertension, hypertensive cardiovascular disease, hyperlipidemia, chronic kidney disease stage III, anemia of chronic disease, chronic gout diabetes mellitus type 2 insulin requiring, cervical stenosis, chronic back pain, generalized anxiety disorder. 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 Patient was hospitalized the end of December due to right intertrochanteric fracture secondary to mechanical fall status post intramedullary hip screw on 01/[address] Conroy. She was given 1 unit of packed RBCs during her stay. Patient was stabilized and discharged to [facility] for subacute rehab. Patient has been doing well there until this morning when her blood sugar was found to be 34. This was around 3 AM there was change in mental status and patient was "babbling" with concern for TIA and patient was brought into [facility] for further evaluation. Family states that initially, she did not recognize family but after she received bag of IV fluids, she was able to state her family members names. Mati larios is complaining of nausea and feeling sick. Family stated that she [facility] except for yesterday she was not drinking very much as there was no water in her room. Blood sugar in the emergency center was 120. WBC 18.3, hemoglobin 10, platelet count 464. INR 1.0. Sodium 135, BUN 41 and creatinine 1.07. Total bilirubin 1.5, AST 39, ALT 26, alk phosphatase 133. Troponins are 0.064. Patient is status post 2 L of IV fluids. Chest x-ray reveals increased pulmonary interstitial density similar to old exam. Probable pulmonary fibrosis. Mild heart failure not entirely excluded. Cardiomegaly unchanged. CAT scan of the brain showed cerebral atrophy. No acute intracranial abnormality. No change. Mild right maxillary sinusitis unchanged. CT angiogram of the head and neck revealed limited exam. No intracranial angiographic abnormality. Limited evaluation of the neck. Likely more than 50 of both internal carotid arteries. Stenosis could be more than 70%. Patient is seen today in the emergency center waiting for a bed on the heart attack stepdown unit, consults with vascular surgery, neurology and orthopedic. 01/16: Ultrasound of the bilateral lower extremity negative for DVT. Patient has been seen by multiple consultants. Wound care has ordered triad and heel protectors which are in place. Orthopedics are following and hip x-ray has been completed. Patient is to be weightbearing as tolerated on the right lower extremity with assistance and walker. No concern at this time for infection. Hip x-ray showed no complication. Patient has been evaluated by neurology with recommendations to avoid hypoglycemia, vascular surgery. 4 possible ICA stenosis, continue eliquis and Lipitor. Vascular surgery has followed and patient has known carotid stenosis and follows the office with Dr. Diana. Plan to continue medical management and recommended revascularization if greater than 80% and acceptable surgical candidate. Patient is seen today sitting up eating her breakfast. She denies having any hip pain. No nausea or vomiting and no abdominal pain. Blood pressure remains elevated for which hydralazine increased frequency to 100 mg 3 times daily. Blood sugars have been running 81- 223. Discharge plan is return to [facility] tomorrow. 01/17: Patient was resumed on Novolog 70/30 yesterday at 15u bid and blood sugars are controlled slightly elevated, 132-195. Insulin will be increased to 17u bid and continued on novolog scale. Patient noted to be confused this morning which started last evening with hallucinations. Medications reviewed. She has not received [place] since 01/15 but will be discontinued. No signs of infection but chest x-ray will be ordered. She is afebrile, HR 62, BP 182/52 prior to morning meds. Blood culture no growth at 24 hours. Anticipate discharge back to [facility] on Wednesday. REVIEW OF SYSTEMS Constitutional: No fever, no chills, no night sweats. No weight change. Noted weakness, reported fatigue reported lethargy. No daytime sleepiness. EENT: No headache. No blurred vision or double vision, no loss of vision. No loss of Hearing, no ringing in the ears, no dizziness. No nasal drainage or congestion. No epistaxis. No sore throat. Lungs: No shortness of breath, cough, no sputum production. No wheezing. Cardiovascular: No chest pain, no lower extremity edema. No palpitations. No paroxysmal nocturnal dyspnea. No orthopnea. No lightheadedness or dizziness. No syncopal episodes. Abdominal: Denies abdominal pain. Denies nausea, no vomiting. No diarrhea. No constipation. No bloody or tarry stools.. No loss of appetite. Decreased water intake yesterday. Genitourinary: No dysuria, increased frequency, urgency. No urinary retention. Musculoskeletal: No myalgias. Reported muscle weakness, reported gait dysfunction, no frequent falls. No back pain. No neck pain. Denies right hip pain. Integumentary: Noted right hip surgical wound, right heel ulcer/wound, no lesions. No rash or pruritus. No unusual bruising. No change in hair or n ails. Neurologic: No aphasia. No facial droop. Noted change in mentation. No head injury. No headache. No paralysis. No paresthesia. Psychiatric: No depression. No anxiety. No mood swings. [place] hallucinations. Endocrine: Noted abnormal blood sugars. No weight change. No excessive sweating or thirst. No cold intolerance. PHYSICAL EXAMINATION Gen: This is this is an 85-year-old female. Patient is resting in bed appears to be comfortable and in no acute distress. HEENT: Head is atraumatic, normocephalic. Pupils equal, round. Sclerae is anicteric. Oral mucous membranes are very dry. NECK: Supple. No JVP. Decreased carotid upstroke bilaterally. No lymphadenopathy. No thyromegaly. LUNGS: Decreased breath sounds at the bases. No wheezes or rhonchi. No intercostal retractions. No accessory muscle usage. HEART: Permanent pacemaker located in the left upper precordium, first heart sound is depressed, second heart sound is normal, there is systolic ejection murmur 3/6 located in the right upper sternal border didn't to the neck. ABDOMEN: Soft. Bowel sounds are present. No masses. No tenderness. EXTREMITIES: No pedal edema. No calf tenderness. Dorsalis pedis palpable bilaterally. NEUROLOGICAL: Patient is awake, alert and oriented x2. Mild confusion. Cranial nerves 2 through 12 are grossly intact. Muscle power 4 out of 5 in upper extremities and 3 out of 5 in left lower extremities ASSESSMENT AND PLAN 1. Acute metabolic encephalopathy most likely secondary to hypoglycemia status post glucagon, possible TIA ruled out, dehydration. Humalog 7030 resumed yesterday afternoon at 15 units will be increased to 17 units twice daily. Continue NovoLog scale before meals and at bedtime only. Consult with neurology, PT, OT consults. 2. Leukocytosis of unclear etiology. Possibly related to right heel wound. Consult with wound care center. Local wound care with triad, heel protectors. 3. Carotid stenosis 50-70 or greater percent. Consult with vascular surgery appreciated. Patient is monitored by Dr. Diana.. 4. Right intertrochanteric fracture secondary to mechanical fall Status post right intramedullary hip screw on 01/01. Consult with orthopedics appreciated. Patient is weightbearing as tolerated to the right lower extremity with assistance of walker. 2. Thrombocytopenia. Repeat CBC tomorrow. 3. Diabetes mellitus type 2 insulin requiring, uncontrolled with hyperglycemia. Hemoglobin A1c 9.6. Patient will be placed on NovoLog scale before meals and at bedtime, resume NovoLog 75/25 tomorrow morning at 30 units 3 times daily. 4. History of coronary artery disease status post CABG in 2011 followed by stenting. Patient resumed on Coreg and Lipitor. 5. Chronic systolic heart failure. IV fluids increased to 75 mL per hour. 6. Valvular heart disease with severe aortic stenosis, moderate to severe tricuspid regurgitation and severe pulmonary hypertension. 7. Hypertension, hypertensive cardiovascular disease. Continue Coreg, Cardura 4 mg daily. 8. Hyperlipidemia. Continue Lipitor. 9. Chronic kidney disease stage III. 10. Anemia of chronic disease. 11. Chronic gout. Continue allopurinol 100 mg twice daily. 12. COVID-19 testing negative. DISCHARGE PLAN Return to [facility] to complete subacute rehab on Wednesday. Impression and plan of care have been directed as dictated by the signing physician. Talia Schneider nurse practitioner acting as scribe for signing physician. Objective - Vital Signs Vital signs: Vital Signs Temp 97.7 F 01/17/21 08:07 Pulse 62 01/17/21 08:07 Resp 20 01/17/21 08:07 BP 182/52 01/17/21 08:07 Pulse Ox 100 01/17/21 08:07 Intake & Output 01/16/21 01/17/21 01/17/21 18:59 06:59 18:59 Intake Total 240 Output Total 650 700 Balance -410 -700 Weight 78.5 kg Intake: Oral 240 Output: Urine 650 700 Other: Voiding Method External Catheter External Catheter # Voids 3 1 # Bowel Movements 1 - Labs CBC & Chem 7: 01/16/21 07:27 01/16/21 07:27 Labs: Abnormal Lab Results - Last 24 Hours (Table) 01/15/21 01/16/21 01/16/21 Range/Units 03:58 07:27 07:27 RBC 2.84 L (3.80-5.40) m/uL Hgb 9.1 L (11.4-16.0) gm/dL Hct 30.2 L (34.0-46.0) % MCV 106.2 H (80.0-100.0) fL MCHC 30.2 L (31.0-37.0) g/dL RDW 17.1 H (11.5-15.5) % Macrocytosis Marked A Sodium 135 L (137-145) mmol/L Chloride 109 H (98-107) mmol/L Carbon Dioxide 21 L (22-30) mmol/L BUN 33 H (7-17) mg/dL Glucose 123 H (74-99) mg/dL POC Glucose (mg/dL) (75-99) mg/dL AST 48 H (14-36) U/L Total Protein 4.9 L (6.3-8.2) g/dL Albumin 2.4 L (3.5-5.0) g/dL Vitamin B12 >2000.0 H (200.0-944.0) pg/mL 01/16/21 01/16/21 01/16/21 Range/Units 11:18 16:57 20:17 RBC (3.80-5.40) m/uL Hgb (11.4-16.0) gm/dL Hct (34.0-46.0) % MCV (80.0-100.0) fL MCHC (31.0-37.0) g/dL RDW (11.5-15.5) % Macrocytosis Sodium (137-145) mmol/L Chloride (98-107) mmol/L Carbon Dioxide (22-30) mmol/L BUN (7-17) mg/dL Glucose (74-99) mg/dL POC Glucose (mg/dL) 223 H 195 H 132 H (75-99) mg/dL AST (14-36) U/L Total Protein (6.3-8.2) g/dL Albumin (3.5-5.0) g/dL Vitamin B12 (200.0-944.0) pg/mL 01/17/21 Range/Units 06:12 RBC (3.80-5.40) m/uL Hgb (11.4-16.0) gm/dL Hct (34.0-46.0) % MCV (80.0-100.0) fL MCHC (31.0-37.0) g/dL RDW (11.5-15.5) % Macrocytosis Sodium (137-145) mmol/L Chloride (98-107) mmol/L Carbon Dioxide (22-30) mmol/L BUN (7-17) mg/dL Glucose (74-99) mg/dL POC Glucose (mg/dL) 142 H (75-99) mg/dL AST (14-36) U/L Total Protein (6.3-8.2) g/dL Albumin (3.5-5.0) g/dL Vitamin B12 (200.0-944.0) pg/mL Microbiology - Last 24 Hours (Table) 01/15/21 08:23 Blood Culture - Preliminary Blood No Growth after 24 hours
--- NOTE | 2021-01-17 09:07 | P.DS ---
<Leela Bill - Last Filed: 01/18/21 10:30> Patient Condition at Discharge: Good Plan - Discharge Summary New Discharge Prescriptions: New hydrALAZINE HCL [Apresoline] 100 mg PO TID tab Acetaminophen Tab [Tylenol] 650 mg PO Q4HR PRN tab PRN Reason: Fever And/ Or Pain Insuln Asp Prt/Insulin Aspart [NovoLOG MIX 70-30 VIAL] 15 unit SQ AC-BID ml Azithromycin [Zithromax] 250 mg PO DAILY #5 tab Continue Allopurinol 100 mg PO BID@0800,1700 Atorvastatin [Lipitor] 80 mg PO HS Doxazosin [Cardura] 4 mg PO DAILY@0800 Nitroglycerin Sl Tabs [Nitrostat] 0.4 mg SL Q5M PRN PRN Reason: Chest Pain Apixaban [Eliquis] 2.5 mg PO BID@0800,1700 carvediloL [Coreg] 6.25 mg PO BID@0800,1700 Na Phos,M-B/Na Phos,Di-Ba [Fleet Adult] 133 ml RECTAL DAILY PRN PRN Reason: Constipation Dapagliflozin Propanediol [Farxiga] 5 mg PO DAILY@0800 bisacodyL [Dulcolax] 10 mg RECTAL DAILY PRN PRN Reason: Constipation Docusate [Colace] 100 mg PO BID@0800,1700 Ferrous Sulfate [Iron (65 MG Elemental)] 325 mg PO DAILY@0800 Magnesium Hydroxide [Milk of Magnesia Concentrate] 7,200 mg PO Q48H PRN PRN Reason: Constipation Pantoprazole [Protonix] 40 mg PO DAILY@0600 Changed Furosemide [Lasix] 40 mg PO DAILY #0 Discontinued HYDROcodone/APAP 5-325MG [[place] 5-325] 1 tab PO Q8HR PRN 7 Days #21 tab PRN Reason: Pain Insulin NPL/Insulin Lispro [humaLOG MIX 75-25 VIAL] 30 unit SQ AC-TID Doxycycline Monohydrate 100 mg PO BID@0800,1700 Discharge Medication List Allopurinol 100 mg PO BID@0800,1700 03/05/14 [History] Atorvastatin [Lipitor] 80 mg PO HS 09/24/14 [History] Doxazosin [Cardura] 4 mg PO DAILY@0800 12/10/18 [History] Apixaban [Eliquis] 2.5 mg PO BID@0800,1700 01/01/21 [History] Dapagliflozin Propanediol [Farxiga] 5 mg PO DAILY@0800 01/01/21 [History] Nitroglycerin Sl Tabs [Nitrostat] 0.4 mg SL Q5M PRN 01/01/21 [History] Docusate [Colace] 100 mg PO BID@0800,1700 01/15/21 [History] Ferrous Sulfate [Iron (65 MG Elemental)] 325 mg PO DAILY@0800 01/15/21 [History] Magnesium Hydroxide [Milk of Magnesia Concentrate] 7,200 mg PO Q48H PRN 01/15/21 [History] Na Phos,M-B/Na Phos,Di-Ba [Fleet Adult] 133 ml RECTAL DAILY PRN 01/15/21 [Histor y] Pantoprazole [Protonix] 40 mg PO DAILY@0600 01/15/21 [History] bisacodyL [Dulcolax] 10 mg RECTAL DAILY PRN 01/15/21 [History] carvediloL [Coreg] 6.25 mg PO BID@0800,1700 01/15/21 [History] Acetaminophen Tab [Tylenol] 650 mg PO Q4HR PRN tab 01/17/21 [Rx] Furosemide [Lasix] 40 mg PO DAILY #0 01/17/21 [Rx] hydrALAZINE HCL [Apresoline] 100 mg PO TID tab 01/17/21 [Rx] Azithromycin [Zithromax] 250 mg PO DAILY #5 tab 01/20/21 [Rx] Insuln Asp Prt/Insulin Aspart [NovoLOG MIX 70-30 VIAL] 15 unit SQ AC-BID ml 01/20/21 [Rx] Follow up Appointment(s)/Referral(s): Leela Bill MD [Primary Care Provider] - 1-2 days Elke Echavarria DO [STAFF PHYSICIAN] - As Needed Fer Conroy MD [Medical Doctor] - 2 Weeks Activity/Diet/Wound Care/Special Instructions: Continue Triad cream to right heel. Return to [facility] Discharge Disposition: TRANSFER TO SNF/ECF <Talia Schneider - Last Filed: 01/20/21 09:07> Providers Date of admission: 01/15/21 11:03 Expected date of discharge: 01/20/21 Attending physician: Leela Bill Consults: 01/15/21 06:33 Consult Physician Routine Consulting Provider: Fer Conroy Consult Reason/Comments: postOp Do you want consulting provider notified?: Yes 01/15/21 07:57 Consult Physician Urgent Consulting Provider: Lamonte Fields Consult Reason/Comments: TIA Do you want consulting provider notified?: Yes Primary care physician: Leela Bill Hospital Course: HISTORY OF PRESENT ILLNESS This is an 85-year-old female patient of Dr. Bill and Dr. Diana with past medical history of coronary artery disease status post CABG in 2011 followed by myocardial infarction, chronic systolic heart failure, valvular heart disease in the form of severe aortic stenosis and moderate to severe tricuspid regurgitation and severe pulmonary hypertension, hypertension, hypertensive cardiovascular disease, hyperlipidemia, chronic kidney disease stage III, anemia of chronic disease, chronic gout diabetes mellitus type 2 insulin requiring, cervical stenosis, chronic back pain, generalized anxiety disorder. 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 Patient was hospitalized the end of December due to right intertrochanteric fracture secondary to mechanical fall status post intramedullary hip screw on 01/[address] Conroy. She was given 1 unit of packed RBCs during her stay. Patient was stabilized and discharged to [facility] for subacute rehab. Patient has been doing well there until this morning when her blood sugar was found to be 34. This was around 3 AM there was change in mental status and patient was "babbling" with concern for TIA and patient was brought into [facility] for further evaluation. Family states that initially, she did not recognize family but after she received bag of IV fluids, she was able to state her family members names. Patient is complaining of nausea and feeling sick. Family stated that she has been eating well at the [facility] except for yesterday she was not drinking very much as there was no water in her room. Blood sugar in the emergency center was 120. WBC 18.3, hemoglobin 10, platelet count 464. INR 1.0. Sodium 135, BUN 41 and creatinine 1.07. Total bilirubin 1.5, AST 39, ALT 26, alk phosphatase 133. Troponins are 0.064. Patient is status post 2 L of IV fluids. Chest x-ray reveals increased pulmonary interstitial density similar to old exam. Probable pulmonary fibrosis. Mild heart failure not entirely excluded. Cardiomegaly unchanged. CAT scan of the brain showed cerebral atrophy. No acute intracranial abnormality. No change. Mild right maxillary sinusitis unchanged. CT angiogram of the head and neck revealed limited exam. No intracranial angiographic abnormality. Limited evaluation of the neck. Likely more than 50 of both internal carotid arteries. Stenosis could be more than 70%. Patient is seen today in the emergency center waiting for a bed on the heart att ack stepdown unit, consults with vascular surgery, neurology and orthopedic. 01/16: Ultrasound of the bilateral lower extremity negative for DVT. Patient has been seen by multiple consultants. Wound care has ordered triad and heel protectors which are in place. Orthopedics are following and hip x-ray has been completed. Patient is to be weightbearing as tolerated on the right lower extremity with assistance and walker. No concern at this time for infection. Hip x-ray showed no complication. Patient has been evaluated by neurology with recommendations to avoid hypoglycemia, vascular surgery. 4 possible ICA stenosis, continue eliquis and Lipitor. Vascular surgery has followed and patient has known carotid stenosis and follows the office with Dr. Diana. Plan to continue medical management and recommended revascularization if greater than 80% and acceptable surgical candidate. Patient is seen today sitting up eating her breakfast. She denies having any hip pain. No nausea or vomiting and no abdominal pain. Blood pressure remains elevated for which hydralazine increased frequency to 100 mg 3 times daily. Blood sugars have been running 81- 223. Discharge plan is return to [facility] tomorrow. 01/17: Patient was resumed on Novolog 70/30 yesterday at 15u bid and blood sugars are controlled slightly elevated, 132-195. Insulin will be increased to 17u bid and continued on novolog scale. Patient noted to be confused this morning which started last evening with hallucinations. Medications reviewed. She has not received [place] since 01/15 but will be discontinued. No signs of infection but chest x-ray will be ordered. She is afebrile, HR 62, BP 182/52 prior to morning meds. Blood culture no growth at 24 hours. Anticipate discharge back to [facility] on Wednesday. 01/19: Patient was supposed to go back to [facility] yesterday however she did not get the authorization and subsequent she was kept in the hospital for another 24 hours, patient appears to be less confused today, she has a poor appetite, she is not eating much today increased swelling in the left upper extremity, discussed with nursing staff taken off her IV site, apply K pad's, keep the arm elevated reevaluate in the next 24 hours, discontinue triad cream and apply skin prep to the right heel of fluid, bilateral heel protectors, physical therapy to put the patient in the chair 3 times every day 01/20: Chest x-ray reveals mild scattered infiltrates more focal on the left lower lobe. Typical pneumonia should be considered also consider atelectasis and pneumonia in the left lower lobe slightly worsened. Patient will be continued on azathioprine. ASSESSMENT AND PLAN 1. Acute metabolic encephalopathy most likely secondary to hypoglycemia status post glucagon, possible TIA ruled out, dehydration. 2. Leukocytosis secondary to pneumonia left lower lobe. 3. Carotid stenosis 50-70 or greater percent. 4. Right intertrochanteric fracture secondary to mechanical fall Status post right intramedullary hip screw on 01/01. Patient is weightbearing as tolerated to the right lower extremity with assistance of walker. 2. Thrombocytopenia. 3. Diabetes mellitus type 2 insulin requiring, uncontrolled with hypoglycemia. Hemoglobin A1c 9.6. 4. History of coronary artery disease status post CABG in 2011 followed by stenting. 5. Chronic systolic heart failure. 6. Valvular heart disease with severe aortic stenosis, moderate to severe tricuspid regurgitation and severe pulmonary hypertension. 7. Hypertension, hypertensive cardiovascular disease. 8. Hyperlipidemia. 9. Chronic kidney disease stage III. 10. Anemia of chronic disease. 11. Chronic gout. 12. Right heel pressure injury stage I. 13. COVID-19 testing negative. DISCHARGE PLAN Return to [facility] Impression and plan of care have been directed as dictated by the signing physician. Talia Schneider nurse practitioner acting as scribe for signing physician.
[2021-01-17 09:21] LABS: Albumin 2.9 g/dL (3.5-5.0); Calcium 9.4 mg/dL (8.4-10.2); Potassium 3.9 mmol/L (3.5-5.1); Total Bilirubin 0.9 mg/dL (0.2-1.3); Total Protein 5.5 g/dL (6.3-8.2)
[2021-01-17 11:47] LABS: Glucose,Whole Blood 61 mg/dL (75-99)
[2021-01-17] MEDS: FUROSEMIDE 40 MG TAB PO SCH (11:58)
[2021-01-17 12:03] LABS: Glucose,Whole Blood 76 mg/dL (75-99)
[2021-01-17 17:17] LABS: Glucose,Whole Blood 144 mg/dL (75-99)
[2021-01-17 20:14] LABS: Glucose,Whole Blood 95 mg/dL (75-99)
[2021-01-17] MEDS: ATORVASTATIN 80 MG TAB PO SCH (21:36)
[2021-01-18 06:12] LABS: Glucose,Whole Blood 81 mg/dL (75-99)
[2021-01-18] MEDS: INSULIN ASPART (NovoLOG) 100 UNIT/ML VIAL SQ SCH ×4 (06:21→21:12)
[2021-01-18] MEDS: PANTOPRAZOLE 40 MG TABLET PO SCH (06:21)
[2021-01-18] MEDS: DOXAZOSIN 4 MG TAB PO SCH (09:30)
[2021-01-18] MEDS: APIXABAN 2.5 MG TABLET PO SCH ×2 (09:30→18:48)
[2021-01-18] MEDS: FUROSEMIDE 40 MG TAB PO SCH (09:30)
[2021-01-18] MEDS: allopurinoL 100 MG TAB PO SCH ×2 (09:31→18:48)
[2021-01-18] MEDS: FERROUS SULFATE 325 MG TAB PO SCH (09:31)
[2021-01-18] MEDS: hydrALAZINE HCL 50 MG TAB PO SCH ×3 (09:31→21:12)
[2021-01-18] MEDS: carvediloL 6.25 MG TAB PO SCH ×2 (09:31→18:49)
[2021-01-18] MEDS: DOCUSATE 100 MG CAP PO SCH ×2 (09:31→18:48)
[2021-01-18 09:41] LABS: Anisocytosis Slight; HCT 31.5 % (34.0-46.0); Hypochromasia Moderate; MCH 33.8 pg (25.0-35.0); MCHC 31.7 g/dL (31.0-37.0); MCV 106.7 fL (80.0-100.0); Macrocytosis Marked; Mean Platelet Volume 7.8; Platelet Count 405 k/uL (150-450); Poikilocytosis Slight; RBC 2.95 m/uL (3.80-5.40); RDW 16.9 % (11.5-15.5); WBC 6.3 k/uL (3.8-10.6)
[2021-01-18 09:54] LABS: Albumin 2.4 g/dL (3.5-5.0); Calcium 9.3 mg/dL (8.4-10.2); Potassium 3.7 mmol/L (3.5-5.1); Total Bilirubin 0.9 mg/dL (0.2-1.3); Total Protein 4.8 g/dL (6.3-8.2)
[2021-01-18 12:00] LABS: Glucose,Whole Blood 206 mg/dL (75-99)
[2021-01-18] MEDS: HYDROPHILIC CREAM 180 GM TUBE TOPICAL SCH (14:10)
[2021-01-18 16:36] LABS: Glucose,Whole Blood 156 mg/dL (75-99)
[2021-01-18] MEDS: INSULN ASP PRT/INSULIN ASPART 100 UNIT/ML 10 ML VIAL SQ SCH ×2 (18:49→19:29)
[2021-01-18 20:07] LABS: Glucose,Whole Blood 190 mg/dL (75-99)
[2021-01-18] MEDS: ATORVASTATIN 80 MG TAB PO SCH (21:12)
[2021-01-19 06:12] LABS: Glucose,Whole Blood 114 mg/dL (75-99)
[2021-01-19] MEDS: INSULIN ASPART (NovoLOG) 100 UNIT/ML VIAL SQ SCH ×4 (06:25→20:28)
[2021-01-19] MEDS: PANTOPRAZOLE 40 MG TABLET PO SCH (06:33)
[2021-01-19] MEDS: DOXAZOSIN 4 MG TAB PO SCH (10:03)
[2021-01-19] MEDS: FERROUS SULFATE 325 MG TAB PO SCH (10:04)
[2021-01-19] MEDS: allopurinoL 100 MG TAB PO SCH ×2 (10:04→17:52)
[2021-01-19] MEDS: hydrALAZINE HCL 50 MG TAB PO SCH ×3 (10:04→20:28)
[2021-01-19] MEDS: DOCUSATE 100 MG CAP PO SCH ×2 (10:04→17:52)
[2021-01-19] MEDS: APIXABAN 2.5 MG TABLET PO SCH ×2 (10:04→17:52)
[2021-01-19] MEDS: FUROSEMIDE 40 MG TAB PO SCH (10:04)
[2021-01-19] MEDS: carvediloL 6.25 MG TAB PO SCH ×2 (10:04→17:52)
[2021-01-19] MEDS: HYDROPHILIC CREAM 180 GM TUBE TOPICAL SCH (10:05)
[2021-01-19] MEDS: INSULN ASP PRT/INSULIN ASPART 100 UNIT/ML 10 ML VIAL SQ SCH ×2 (10:07→17:52)
[2021-01-19 10:09] LABS: Glucose,Whole Blood 167 mg/dL (75-99)
[2021-01-19 11:38] LABS: Glucose,Whole Blood 130 mg/dL (75-99)
--- NOTE | 2021-01-19 11:52 | P.PN ---
Subjective Progress Note Date: 01/19/21 Progress Note Date: 01/19/21 HISTORY OF PRESENT ILLNESS This is an 85-year-old female patient of Dr. Bill and Dr. Diana with past medical history of coronary artery disease status post CABG in 2011 followed by myocardial infarction, chronic systolic heart failure, valvular heart disease in the form of severe aortic stenosis and moderate to severe tricuspid regurgitation and severe pulmonary hypertension, hypertension, hypertensive cardiovascular disease, hyperlipidemia, chronic kidney disease stage III, anemia of chronic disease, chronic gout diabetes mellitus type 2 insulin requiring, cervical stenosis, chronic back pain, generalized anxiety disorder. 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 Patient was hospitalized the end of December due to right intertrochanteric fracture secondary to mechanical fall status post intramedullary hip screw on 01/[address] Conroy. She was given 1 unit of packed RBCs during her stay. Patient was stabilized and discharged to [facility] for subacute rehab. Patient has been doing well there until this morning when her blood sugar was found to be 34. This was around 3 AM there was change in mental status and patient was "babbling" with concern for TIA and patient was brought into [facility] for further evaluation. Family states that initially, she did not recognize family but after she received bag of IV fluids, she was able to state her family members names. Patient is complaining of nausea and feeling sick. Family stated that she has been eating well at the alf except for yesterday she was not drinking very much as there was no water in her room. Blood sugar in the emergency center was 120. WBC 18.3, hemoglobin 10, platelet count 464. INR 1.0. Sodium 135, BUN 41 and creatinine 1.07. Total bilirubin 1.5, AST 39, ALT 26, alk phosphatase 133. Troponins are 0.064. Patient is status post 2 L of IV fluids. Chest x-ray reveals increased pulmonary interstitial density similar to old ex am. Probable pulmonary fibrosis. Mild heart failure not entirely excluded. Cardiomegaly unchanged. CAT scan of the brain showed cerebral atrophy. No acute intracranial abnormality. No change. Mild right maxillary sinusitis unchanged. CT angiogram of the head and neck revealed limited exam. No intracranial angiographic abnormality. Limited evaluation of the neck. Likely more than 50 of both internal carotid arteries. Stenosis could be more than 70%. Patient is seen today in the emergency center waiting for a bed on the heart attack stepdown unit, consults with vascular surgery, neurology and orthopedic. 01/16: Ultrasound of the bilateral lower extremity negative for DVT. Patient has been seen by multiple consultants. Wound care has ordered triad and heel protectors which are in place. Orthopedics are following and hip x-ray has been completed. Patient is to be weightbearing as tolerated on the right lower extremity with assistance and walker. No concern at this time for infection. Hip x-ray showed no complication. Patient has been evaluated by neurology with recommendations to avoid hypoglycemia, vascular surgery. 4 possible ICA stenosis, continue eliquis and Lipitor. Vascular surgery has followed and patient has known carotid stenosis and follows the office with Dr. Diana. Plan to continue medical management and recommended revascularization if greater than 80% and acceptable surgical candidate. Patient is seen today sitting up eating her breakfast. She denies having any hip pain. No nausea or vomiting and no abdominal pain. Blood pressure remains elevated for which hydralazine increased frequency to 100 mg 3 times daily. Blood sugars have been running 81- 223. Discharge plan is return to [facility] tomorrow. 01/17: Patient was resumed on Novolog 70/30 yesterday at 15u bid and blood sugars are controlled slightly elevated, 132-195. Insulin will be increased to 17u bid and continued on novolog scale. Patient noted to be confused this morning which started last evening with hallucinations. Medications reviewed. She has not received [place] since 01/15 but will be discontinued. No signs of infection but chest x-ray will be ordered. She is afebrile, HR 62, BP 182/52 prior to morning meds. Blood culture no growth at 24 hours. Anticipate discharge back to [facility] on Wednesday. 01/19: Patient was supposed to go back to [facility] yesterday however she did not get the authorization and subsequent she was kept in the hospital for another 24 hours, patient appears to be less confused today, she has a poor appetite, she is not eating much today increased swelling in the left upper extremity, discussed with nursing staff taken off her IV site, apply K pad's, keep the arm elevated reevaluate in the next 24 hours, discontinue triad cream and apply skin prep to the right heel of fluid, bilateral heel protectors, physical therapy to put the patient in the chair 3 times every day REVIEW OF SYSTEMS Constitutional: No fever, no chills, no night sweats. No weight change. Noted weakness, reported fatigue reported lethargy. No daytime sleepiness. EENT: No headache. No blurred vision or double vision, no loss of vision. No loss of Hearing, no ringing in the ears, no dizziness. No nasal drainage or congestion. No epistaxis. No sore throat. Lungs: No shortness of breath, cough, no sputum production. No wheezing. Cardiovascular: No chest pain, no lower extremity edema. No palpitations. No paroxysmal nocturnal dyspnea. No orthopnea. No lightheadedness or dizziness. No syncopal episodes. Abdominal: Denies abdominal pain. Denies nausea, no vomiting. No diarrhea. No constipation. No bloody or tarry stools.. No loss of appetite. Decreased water intake yesterday. Genitourinary: No dysuria, increased frequency, urgency. No urinary retention. Musculoskeletal: No myalgias. Reported muscle weakness, reported gait dysfunction, no frequent falls. No back pain. No neck pain. Denies right hip pain. Integumentary: Noted right hip surgical wound, right heel ulcer/wound, no lesions. No rash or pruritus. No unusual bruising. No change in hair or nails. Neurologic: No aphasia. No facial droop. Noted change in mentation. No head injury. No headache. No paralysis. No paresthesia. Psychiatric: No depression. No anxiety. No mood swings. [place] hallucinations. Endocrine: Noted abnormal blood sugars. No weight change. No excessive sweating or thirst. No cold intolerance. PHYSICAL EXAMINATION Gen: This is this is an 85-year-old female. Patient is resting in bed appears to be comfortable and in no acute distress. HEENT: Head is atraumatic, normocephalic. Pupils equal, round. Sclerae is anicteric. Oral mucous membranes are very dry. NECK: Supple. No JVP. Decreased carotid upstroke bilaterally. No lymphadenopathy. No thyromegaly. LUNGS: Decreased breath sounds at the bases. No wheezes or rhonchi. No intercostal retractions. No accessory muscle usage. HEART: Permanent pacemaker located in the left upper precordium, first heart so und is depressed, second heart sound is normal, there is systolic ejection murmur 3/6 located in the right upper sternal border didn't to the neck. ABDOMEN: Soft. Bowel sounds are present. No masses. No tenderness. EXTREMITIES: No pedal edema. No calf tenderness. Dorsalis pedis palpable bilaterally. NEUROLOGICAL: Patient is awake, alert and oriented x2. Mild confusion. Cranial nerves 2 through 12 are grossly intact. Muscle power 4 out of 5 in upper extremities and 3 out of 5 in left lower extremities ASSESSMENT AND PLAN 1. Acute metabolic encephalopathy most likely secondary to hypoglycemia status post glucagon, possible TIA ruled out, dehydration. Humalog 7030 resumed yesterday afternoon at 15 units twice every day, physical therapy to continue to work with the patient. 2. Leukocytosis of unclear etiology. patient does have a blood blister to the right heel, discontinue triad cream and start the patient on chlorhexidine skin prep once every day offload and heel protectors 3. Moderate carotid stenosis in the range of 70%, no need for vascular inte rvention at this time, continue with aggressive prescribed medication keep LDL closer 55-70 repeat in 6 months. 4. Right intertrochanteric fracture secondary to mechanical fall Status post right intramedullary hip screw on 01/01. Consult with orthopedics appreciated. Patient is weightbearing as tolerated to the right lower extremity, [place] tomorrow morning. 2. Thrombocytopenia. stable. 3. Diabetes mellitus type 2 insulin requiring, uncontrolled with hyperglycemia. Hemoglobin A1c 9.6. Patient will be placed on NovoLog scale before meals and at bedtime, resume NovoLog 75/25 tomorrow morning at 30 units 3 times daily. 4. History of coronary artery disease status post CABG in 2011 followed by stenting. Patient resumed on Coreg and Lipitor. 5. Chronic systolic heart failure. Patient was restarted back on her Lasix 40 mg orally once every day as well as carvedilol 6. Valvular heart disease with severe aortic stenosis, moderate to severe tricuspid regurgitation and severe pulmonary hypertension. continue conservative management. 7. Hypertension, hypertensive cardiovascular disease. Continue Coreg 6.25 mg orally twice every day, continue Cardura 4 mg orally once every day, hydralazine 100 mg orally 3 times every day. 8. Hyperlipidemia. Continue Lipitor 80 mg orally once every day. 9. Chronic kidney disease stage III. Continue to monitor the patient CMP avoid prophylaxis. 10. Anemia of chronic disease. Stable at this time. 11. Chronic gout. Continue allopurinol 100 mg twice daily. 12. COVID-19 testing negative. 13. [place] tomorrow morning if prior authorization is done 14. Left upper extremity edema due to IV infiltration discontinue IV site apply K pad's keep the arm elevated. Objective - Vital Signs Vital signs: Vital Signs Temp 98.0 F 01/19/21 09:57 Pulse 61 01/19/21 09:57 Resp 18 01/19/21 09:57 BP 161/60 01/19/21 09:57 Pulse Ox 98 01/19/21 09:57 Intake & Output 01/18/21 01/19/21 01/19/21 18:59 06:59 18:59 Intake Total 540 180 Output Total 275 Balance 265 180 Weight 71 kg Intake: Oral 540 180 Output: Urine 275 Other: Voiding Method External Catheter Bedpan # Voids 2 1 1 - Labs CBC & Chem 7: 01/18/21 09:08 01/18/21 09:08 Labs: Abnormal Lab Results - Last 24 Hours (Table) 01/18/21 01/18/21 01/18/21 Range/Units 11:58 16:35 20:05 POC Glucose (mg/dL) 206 H 156 H 190 H (75-99) mg/dL 01/19/21 01/19/21 Range/Units 06:11 10:07 POC Glucose (mg/dL) 114 H 167 H (75-99) mg/dL Microbiology - Last 24 Hours (Table) 01/15/21 08:23 Blood Culture - Preliminary Blood No Growth after 96 hours
[2021-01-19 11:55] LABS: Anisocytosis Slight; Basophils % (A) 0 %; Eosinophils # (A) 0.2 k/uL (0-0.7); Eosinophils % (A) 3 %; HCT 27.8 % (34.0-46.0); HGB 8.8 gm/dL (11.4-16.0); Hypochromasia Moderate; Lymphocytes # (A) 0.7 k/uL (1.0-4.8); Lymphocytes % (A) 12 %; MCH 33.5 pg (25.0-35.0); MCHC 31.8 g/dL (31.0-37.0); Macrocytosis Marked; Mean Platelet Volume 8.8; Monocytes # (A) 0.4 k/uL (0-1.0); Monocytes % (A) 7 %; Neutrophils # (A) 4.3 k/uL (1.3-7.7); Neutrophils % (A) 75 %; Platelet Count 399 k/uL (150-450); Poikilocytosis Slight; RBC 2.64 m/uL (3.80-5.40); RDW 16.8 % (11.5-15.5); WBC 5.7 k/uL (3.8-10.6)
[2021-01-19 11:58] LABS: Albumin 2.3 g/dL (3.5-5.0); Potassium 3.6 mmol/L (3.5-5.1); Total Bilirubin 0.6 mg/dL (0.2-1.3); Total Protein 4.5 g/dL (6.3-8.2)
[2021-01-19 11:59] LABS: MCV 105.4 fL (80.0-100.0)
[2021-01-19] MEDS: ACETAMINOPHEN TAB 325 MG TAB PO PRN (14:59)
[2021-01-19 16:43] LABS: Glucose,Whole Blood 154 mg/dL (75-99)
[2021-01-19 19:37] LABS: Glucose,Whole Blood 149 mg/dL (75-99)
[2021-01-19] MEDS: ATORVASTATIN 80 MG TAB PO SCH (20:28)
[2021-01-20] MEDS: ACETAMINOPHEN TAB 325 MG TAB PO PRN (01:07)
[2021-01-20 06:50] LABS: Glucose,Whole Blood 98 mg/dL (75-99)
[2021-01-20] MEDS: PANTOPRAZOLE 40 MG TABLET PO SCH (06:51)
[2021-01-20] MEDS: INSULIN ASPART (NovoLOG) 100 UNIT/ML VIAL SQ SCH ×4 (06:51→20:19)
--- NOTE | 2021-01-20 08:25 | XR ---
EXAMINATION TYPE: XR chest 1V DATE OF EXAM: 01/20/2021 COMPARISON: 01/17/2021 INDICATION: Cough TECHNIQUE: Single frontal view of the chest is obtained. FINDINGS: The heart size is mildly prominent. The pulmonary vasculature is normal. Minimal increased lung markings are present. This more focal in the left lower lobe. Correlate for at ypical pneumonia. Some atelectasis may be at the left base. This could be worsening. Atypical pneumo hiren is within the differential. Some air bronchograms may be at the infrahilar region. IMPRESSION: 1. Mild scattered infiltrates more focal in the left lower lobe. Typical pneumonia should be consider ed. Also consider atelectasis and pneumonia in the left lower lobe slightly worsened.
[2021-01-20 08:39] LABS: Anisocytosis Slight; Basophils % (A) 0 %; Eosinophils # (A) 0.3 k/uL (0-0.7); Eosinophils % (A) 4 %; HCT 31.3 % (34.0-46.0); HGB 9.9 gm/dL (11.4-16.0); Hypochromasia Moderate; Lymphocytes # (A) 1.1 k/uL (1.0-4.8); Lymphocytes % (A) 17 %; MCHC 31.8 g/dL (31.0-37.0); MCV 106.9 fL (80.0-100.0); Macrocytosis Marked; Mean Platelet Volume 9.4; Monocytes # (A) 0.6 k/uL (0-1.0); Monocytes % (A) 9 %; Neutrophils # (A) 4.2 k/uL (1.3-7.7); Neutrophils % (A) 68 %; Platelet Count 400 k/uL (150-450); RBC 2.93 m/uL (3.80-5.40); RDW 16.8 % (11.5-15.5); WBC 6.2 k/uL (3.8-10.6)
[2021-01-20] MEDS: FERROUS SULFATE 325 MG TAB PO SCH (09:07)
[2021-01-20] MEDS: allopurinoL 100 MG TAB PO SCH ×2 (09:07→16:58)
[2021-01-20] MEDS: hydrALAZINE HCL 50 MG TAB PO SCH ×3 (09:07→20:19)
[2021-01-20] MEDS: APIXABAN 2.5 MG TABLET PO SCH ×2 (09:08→16:58)
[2021-01-20] MEDS: carvediloL 6.25 MG TAB PO SCH ×2 (09:08→16:58)
[2021-01-20] MEDS: FUROSEMIDE 40 MG TAB PO SCH (09:08)
[2021-01-20] MEDS: INSULN ASP PRT/INSULIN ASPART 100 UNIT/ML 10 ML VIAL SQ SCH ×2 (09:08→16:58)
[2021-01-20] MEDS: AZITHROMYCIN 250 MG TAB PO SCH (09:08)
[2021-01-20] MEDS: DOXAZOSIN 4 MG TAB PO SCH (09:08)
[2021-01-20] MEDS: DOCUSATE 100 MG CAP PO SCH ×2 (09:08→16:58)
[2021-01-20] MEDS: HYDROPHILIC CREAM 180 GM TUBE TOPICAL SCH (09:11)
[2021-01-20 09:17] LABS: Albumin 2.4 g/dL (3.5-5.0); Calcium 9.1 mg/dL (8.4-10.2); Potassium 3.7 mmol/L (3.5-5.1); Total Bilirubin 0.8 mg/dL (0.2-1.3); Total Protein 4.9 g/dL (6.3-8.2)
--- NOTE | 2021-01-20 11:37 | P.PN ---
Subjective Progress Note Date: 01/20/21 This patient is an 85-year-old female with past medical history of coronary artery disease with previous bypass surgery, hypertension, chronic kidney disease, diabetes, hypertension, hyperlipidemia that presented to [facility] emergency department on 01/15/21 via EMS with complaints of altered mental status from [facility]. She was found to be altered around 3AM this morning at [facility]. Her glucose was found to be 34. She was subsequently transferred to [facility] ER. Patient was admitted under the care of internal medicine with a consult placed to neurology, vascular, wound care. Orthopedics was consulted for evaluation of her right hip. She recently underwent operative fixation of right intertrochanteric hip fracture with short intramedullary hip screw on 01/02/21. Patient is seen and examined bedside with Dr. Conroy. She notes mild pain in the right lower extremity. She appears mildly confused. Vital signs stable. 01/20/21: Patient is seen and examined bedside this morning. She is much more alert this morning. She states she is experiencing minimal pain in the right hip. She is doing well and has no complaints this morning. Per nursing, the patient is returning to rehab today. Doppler ultrasound of the bilateral lower extremities on 01/15/21 was negative for DVT. Vital signs stable. Objective - Vital Signs Vital signs: Vital Signs Temp 97.6 F 01/20/21 08:00 Pulse 61 01/20/21 08:00 Resp 20 01/20/21 08:00 BP 183/59 01/20/21 08:00 Pulse Ox 96 01/20/21 08:00 Intake & Output 01/19/21 01/20/21 01/20/21 18:59 06:59 18:59 Intake Total 420 240 Balance 420 240 Weight 73 kg Intake: Oral 420 240 Other: Voiding Method Bedpan # Voids 1 1 1 # Bowel Movements 1 1 - Exam On examination, patient is laying in bed in no apparent distress. She is alert and awake. On inspection of the right hip, there are 3 healing surgical incisions with intact [place]. There is mild erythema of the proximal incision, although it appears to be normal healing and there are no signs of infection. The thigh is soft and compressible. Motor and sensory function is intact of the right lower extremity. Right lower extremity is warm and well perfused. Calf is soft and non-tender. - Labs CBC & Chem 7: 01/20/21 07:24 01/20/21 07:24 Labs: Abnormal Lab Results - Last 24 Hours (Table) 01/16/21 01/19/21 01/19/21 Range/Units 07:27 10:47 10:47 RBC 2.64 L (3.80-5.40) m/uL Hgb 8.8 L (11.4-16.0) gm/dL Hct 27.8 L (34.0-46.0) % MCV 105.4 H (80.0-100.0) fL RDW 16.8 H (11.5-15.5) % Lymphocytes # 0.7 L (1.0-4.8) k/uL Macrocytosis Marked A Chloride 111 H (98-107) mmol/L Carbon Dioxide 21 L (22-30) mmol/L BUN 21 H (7-17) mg/dL Glucose 144 H (74-99) mg/dL POC Glucose (mg/dL) (75-99) mg/dL Alkaline Phosphatase (38-126) U/L Total Protein 4.5 L (6.3-8.2) g/dL Albumin 2.3 L (3.5-5.0) g/dL Vitamin B6 3 L (5-50) ug/L 01/19/21 01/19/21 01/19/21 Range/Units 11:36 16:31 19:36 RBC (3.80-5.40) m/uL Hgb (11.4-16.0) gm/dL Hct (34.0-46.0) % MCV (80.0-100.0) fL RDW (11.5-15.5) % Lymphocytes # (1.0-4.8) k/uL Macrocytosis Chloride (98-107) mmol/L Carbon Dioxide (22-30) mmol/L BUN (7-17) mg/dL Glucose (74-99) mg/dL POC Glucose (mg/dL) 130 H 154 H 149 H (75-99) mg/dL Alkaline Phosphatase (38-126) U/L Total Protein (6.3-8.2) g/dL Albumin (3.5-5.0) g/dL Vitamin B6 (5-50) ug/L 01/20/21 01/20/21 Range/Units 07:24 07:24 RBC 2.93 L (3.80-5.40) m/uL Hgb 9.9 L (11.4-16.0) gm/dL Hct 31.3 L (34.0-46.0) % MCV 106.9 H (80.0-100.0) fL RDW 16.8 H (11.5-15.5) % Lymphocytes # (1.0-4.8) k/uL Macrocytosis Marked A Chloride 112 H (98-107) mmol/L Carbon Dioxide (22-30) mmol/L BUN 20 H (7-17) mg/dL Glucose (74-99) mg/dL POC Glucose (mg/dL) (75-99) mg/dL Alkaline Phosphatase 135 H (38-126) U/L Total Protein 4.9 L (6.3-8.2) g/dL Albumin 2.4 L (3.5-5.0) g/dL Vitamin B6 (5-50) ug/L Microbiology - Last 24 Hours (Table) 01/15/21 08:23 Blood Culture - Preliminary Blood No Growth after 120 hours Assessment and Plan Assessment: Status-post perative fixation of right intertrochanteric hip fracture with short intramedullary hip screw on 01/02/[address] Conroy. Plan: - [place] from hip may be removed at bedside this morning before return to rehab. Nursing was informed and will remove balbina bedside. Recommend a light dressing over the incisions after stable removal. - Patient may continue weight-bear as tolerated on right lower extremity with assistance and a walker. Doppler ultrasound of the bilateral lower extremities on 01/15/21 was negative for DVT. - Continue to off load right heel due to pressure ulcer. Patient currently using off-loading boots. - Patient may follow-up in the office as an outpatient for continued post- operative evaluation of the right hip.
[2021-01-20 11:42] LABS: Glucose,Whole Blood 180 mg/dL (75-99)
[2021-01-20 16:27] LABS: Glucose,Whole Blood 159 mg/dL (75-99)
[2021-01-20 20:03] LABS: Glucose,Whole Blood 116 mg/dL (75-99)
[2021-01-20] MEDS: ATORVASTATIN 80 MG TAB PO SCH (20:19)
[2021-01-21 06:16] LABS: Glucose,Whole Blood 113 mg/dL (75-99)
[2021-01-21] MEDS: INSULIN ASPART (NovoLOG) 100 UNIT/ML VIAL SQ SCH ×4 (06:31→20:35)
[2021-01-21] MEDS: PANTOPRAZOLE 40 MG TABLET PO SCH (06:31)
--- NOTE | 2021-01-21 08:33 | P.PN ---
Subjective Progress Note Date: 01/20/21 HISTORY OF PRESENT ILLNESS This is an 85-year-old female patient of Dr. Bill and Dr. Diana with past medical history of coronary artery disease status post CABG in 2011 foll owed by myocardial infarction, chronic systolic heart failure, valvular heart disease in the form of severe aortic stenosis and moderate to severe tricuspid regurgitation and severe pulmonary hypertension, hypertension, hypertensive cardiovascular disease, hyperlipidemia, chronic kidney disease stage III, anemia of chronic disease, chronic gout diabetes mellitus type 2 insulin requiring, cervical stenosis, chronic back pain, generalized anxiety disorder. 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 Patient was hospitalized the end of December due to right intertrochanteric fracture secondary to mechanical fall status post intramedullary hip screw on 01/[address] Conroy. She was given 1 unit of packed RBCs during her stay. Patient was stabilized and discharged to [facility] for subacute rehab. Patient has been doing well there until this morning when her blood sugar was found to be 34. This was around 3 AM there was change in mental status and patient was "babbling" with concern for TIA and patient was brought into [facility] for further evaluation. Family states that initially, she did not recognize family but after she received bag of IV fluids, she was able to state her family members names. Mati larios is complaining of nausea and feeling sick. Family stated that she has been eating well at the group home except for yesterday she was not drinking very much as there was no water in her room. Blood sugar in the emergency center was 120. WBC 18.3, hemoglobin 10, platelet count 464. INR 1.0. Sodium 135, BUN 41 and creatinine 1.07. Total bilirubin 1.5, AST 39, ALT 26, alk phosphatase 133. Troponins are 0.064. Patient is status post 2 L of IV fluids. Chest x-ray reveals increased pulmonary interstitial density similar to old exam. Probable pulmonary fibrosis. Mild heart failure not entirely excluded. Cardiomegaly unchanged. CAT scan of the brain showed cerebral atrophy. No acute intracranial abnormality. No change. Mild right maxillary sinusitis unchanged. CT angiogram of the head and neck revealed limited exam. No intracranial angiographic abnormality. Limited evaluation of the neck. Likely more than 50 of both internal carotid arteries. Stenosis could be more than 70%. Patient is seen today in the emergency center waiting for a bed on the heart attack stepdown unit, consults with vascular surgery, neurology and orthopedic. 01/16: Ultrasound of the bilateral lower extremity negative for DVT. Patient has been seen by multiple consultants. Wound care has ordered triad and heel protectors which are in place. Orthopedics are following and hip x-ray has been completed. Patient is to be weightbearing as tolerated on the right lower extremity with assistance and walker. No concern at this time for infection. Hip x-ray showed no complication. Patient has been evaluated by neurology with recommendations to avoid hypoglycemia, vascular surgery. 4 possible ICA stenosis, continue eliquis and Lipitor. Vascular surgery has followed and patient has known carotid stenosis and follows the office with Dr. Diana. Plan to continue medical management and recommended revascularization if greater than 80% and acceptable surgical candidate. Patient is seen today sitting up eating her breakfast. She denies having any hip pain. No nausea or vomiting and no abdominal pain. Blood pressure remains elevated for which hydralazine increased frequency to 100 mg 3 times daily. Blood sugars have been running 81- 223. Discharge plan is return to [facility] tomorrow. 01/17: Patient was resumed on Novolog 70/30 yesterday at 15u bid and blood sugars are controlled slightly elevated, 132-195. Insulin will be increased to 17u bid and continued on novolog scale. Patient noted to be confused this morning which started last evening with hallucinations. Medications reviewed. She has not received [place] since 01/15 but will be discontinued. No signs of infection but chest x-ray will be ordered. She is afebrile, HR 62, BP 182/52 prior to morning meds. Blood culture no growth at 24 hours. Anticipate discharge back to [facility] on Wednesday. 01/19: Patient was supposed to go back to [facility] yesterday however she did not get the authorization and subsequent she was kept in the hospital for another 24 hours, patient appears to be less confused today, she has a poor appetite, she is not eating much today increased swelling in the left upper extremity, disc ussed with nursing staff taken off her IV site, apply K pad's, keep the arm elevated reevaluate in the next 24 hours, discontinue triad cream and apply skin prep to the right heel of fluid, bilateral heel protectors, physical therapy to put the patient in the chair 3 times every day 01/20: Chest x-ray reveals mild scattered infiltrates more focal on the left lower lobe. Typical pneumonia should be considered also consider atelectasis and pneumonia in the left lower lobe slightly worsened. Patient will be continued on azathioprine. Discharge plan is to return to [facility] once insurance authorization has been obtained. REVIEW OF SYSTEMS Constitutional: No fever, no chills, no night sweats. No weight change. Noted weakness, reported fatigue reported lethargy. No daytime sleepiness. EENT: No headache. No blurred vision or double vision, no loss of vision. No loss of Hearing, no ringing in the ears, no dizziness. No nasal drainage or congestion. No epistaxis. No sore throat. Lungs: No shortness of breath, cough, no sputum production. No wheezing. Cardiovascular: No chest pain, no lower extremity edema. No palpitations. No paroxysmal nocturnal dyspnea. No orthopnea. No lightheadedness or dizziness. No syncopal episodes. Abdominal: Denies abdominal pain. Denies nausea, no vomiting. No diarrhea. No constipation. No bloody or tarry stools.. No loss of appetite. Decreased water intake yesterday. Genitourinary: No dysuria, increased frequency, urgency. No urinary retention. Musculoskeletal: No myalgias. Reported muscle weakness, reported gait dysfunction, no frequent falls. No back pain. No neck pain. Denies right hip pain. Integumentary: Noted right hip surgical wound, right heel ulcer/wound, no lesions. No rash or pruritus. No unusual bruising. Neurologic: No aphasia. No facial droop. Noted change in mentation. No head i njury. No headache. No paralysis. No paresthesia. Psychiatric: No depression. No anxiety. No mood swings. [place]quois hallucinations. Endocrine: Noted abnormal blood sugars. No weight change. PHYSICAL EXAMINATION Gen: This is this is an 85-year-old female. Patient is resting in bed appears to be comfortable and in no acute distress. HEENT: Head is atraumatic, normocephalic. Pupils equal, round. Sclerae is anicteric. Oral mucous membranes are slightly dry. NECK: Supple. No JVP. Decreased carotid upstroke bilaterally. No lymphadenopathy. No thyromegaly. LUNGS: Decreased breath sounds at the bases. No wheezes or rhonchi. No intercostal retractions. No accessory muscle usage. HEART: Permanent pacemaker located in the left upper precordium, first heart sound is depressed, second heart sound is normal, there is systolic ejection murmur 3/6 located in the right upper sternal border didn't to the neck. ABDOMEN: Soft. Bowel sounds are present. No masses. No tenderness. EXTREMITIES: No pedal edema. No calf tenderness. Dorsalis pedis palpable bilaterally. NEUROLOGICAL: Patient is awake, alert and oriented x2. Mild confusion. Cranial nerves 2 through 12 are grossly intact. Muscle power 4 out of 5 in upper extremities and 3 out of 5 in left lower extremities ASSESSMENT AND PLAN 1. Acute metabolic encephalopathy most likely secondary to hypoglycemia status post glucagon, possible TIA ruled out, dehydration. Humalog 7030 resumed yesterday afternoon at 15 units twice every day, physical therapy to continue to work with the patient. 2. Leukocytosis of unclear etiology. patient does have a blood blister to the right heel, discontinue triad cream and start the patient on chlorhexidine skin prep once every day offload and heel protectors 3. Moderate carotid stenosis in the range of 70%, no need for vascular intervention at this time, continue with aggressive prescribed medication keep LDL closer 55-70 repeat in 6 months. 4. Right intertrochanteric fracture secondary to mechanical fall Status post right intramedullary hip screw on 01/01. Consult with orthopedics appreciated. Patient is weightbearing as tolerated to the right lower extremity, [place] tomorrow morning. 2. Thrombocytopenia. stable. 3. Diabetes mellitus type 2 insulin requiring, uncontrolled with hyperglycemia. Hemoglobin A1c 9.6. Patient will be placed on NovoLog scale before meals and at bedtime, resume NovoLog 75/25 tomorrow morning at 30 units 3 times daily. 4. History of coronary artery disease status post CABG in 2011 followed by stenting. Patient resumed on Coreg and Lipitor. 5. Chronic systolic heart failure. Patient was restarted back on her Lasix 40 mg orally once every day as well as carvedilol 6. Valvular heart disease with severe aortic stenosis, moderate to severe tricuspid regurgitation and severe pulmonary hypertension. continue conservative management. 7. Hypertension, hypertensive cardiovascular disease. Continue Coreg 6.25 mg orally twice every day, continue Cardura 4 mg orally once every day, hydralazine 100 mg orally 3 times every day. 8. Hyperlipidemia. Continue Lipitor 80 mg orally once every day. 9. Chronic kidney disease stage III. Continue to monitor the patient CMP avoid prophylaxis. 10. Anemia of chronic disease. Stable at this time. 11. Chronic gout. Continue allopurinol 100 mg twice daily. 12. COVID-19 testing negative. 13. Left upper extremity edema due to IV infiltration discontinue IV site apply K pad's keep the arm elevated. DISCHARGE PLAN Return to [facility] Impression and plan of care have been directed as dictated by the signing physician. Talia Schneider nurse practitioner acting as scribe for signing physician. Objective - Vital Signs Vital signs: Vital Signs Temp 98.0 F 01/21/21 04:00 Pulse 67 01/21/21 04:00 Resp 18 01/21/21 04:00 BP 121/77 01/21/21 04:00 Pulse Ox 96 01/21/21 04:00 Intake & Output 01/20/21 01/21/21 01/21/21 18:59 06:59 18:59 Intake Total 720 Balance 720 Weight 69 kg Intake: Oral 720 Other: Voiding Method Bedpan # Voids 1 2 # Bowel Movements 1 - Labs CBC & Chem 7: 01/20/21 07:24 01/20/21 07:24 Labs: Abnormal Lab Results - Last 24 Hours (Table) 01/16/21 01/20/21 01/20/21 Range/Units 07:27 07:24 07:24 RBC 2.93 L (3.80-5.40) m/uL Hgb 9.9 L (11.4-16.0) gm/dL Hct 31.3 L (34.0-46.0) % MCV 106.9 H (80.0-100.0) fL RDW 16.8 H (11.5-15.5) % Macrocytosis Marked A Chloride 112 H (98-107) mmol/L BUN 20 H (7-17) mg/dL POC Glucose (mg/dL) (75-99) mg/dL Alkaline Phosphatase 135 H (38-126) U/L Total Protein 4.9 L (6.3-8.2) g/dL Albumin 2.4 L (3.5-5.0) g/dL Vitamin B6 3 L (5-50) ug/L 01/20/21 01/20/21 01/20/21 Range/Units 11:40 16:24 20:02 RBC (3.80-5.40) m/uL Hgb (11.4-16.0) gm/dL Hct (34.0-46.0) % MCV (80.0-100.0) fL RDW (11.5-15.5) % Macrocytosis Chloride (98-107) mmol/L BUN (7-17) mg/dL POC Glucose (mg/dL) 180 H 159 H 116 H (75-99) mg/dL Alkaline Phosphatase (38-126) U/L Total Protein (6.3-8.2) g/dL Albumin (3.5-5.0) g/dL Vitamin B6 (5-50) ug/L 01/21/21 Range/Units 06:14 RBC (3.80-5.40) m/uL Hgb (11.4-16.0) gm/dL Hct (34.0-46.0) % MCV (80.0-100.0) fL RDW (11.5-15.5) % Macrocytosis Chloride (98-107) mmol/L BUN (7-17) mg/dL POC Glucose (mg/dL) 113 H (75-99) mg/dL Alkaline Phosphatase (38-126) U/L Total Protein (6.3-8.2) g/dL Albumin (3.5-5.0) g/dL Vitamin B6 (5-50) ug/L Microbiology - Last 24 Hours (Table) 01/15/21 08:23 Blood Culture - Preliminary Blood No Growth after 120 hours
[2021-01-21] MEDS: INSULN ASP PRT/INSULIN ASPART 100 UNIT/ML 10 ML VIAL SQ SCH ×2 (09:11→17:51)
[2021-01-21] MEDS: DOXAZOSIN 4 MG TAB PO SCH (09:45)
[2021-01-21] MEDS: DOCUSATE 100 MG CAP PO SCH ×2 (09:45→16:09)
[2021-01-21] MEDS: APIXABAN 2.5 MG TABLET PO SCH ×2 (09:45→16:09)
[2021-01-21] MEDS: hydrALAZINE HCL 50 MG TAB PO SCH ×3 (09:45→20:35)
[2021-01-21] MEDS: AZITHROMYCIN 250 MG TAB PO SCH (09:45)
[2021-01-21] MEDS: HYDROPHILIC CREAM 180 GM TUBE TOPICAL SCH (09:46)
[2021-01-21] MEDS: carvediloL 6.25 MG TAB PO SCH ×2 (09:46→16:09)
[2021-01-21] MEDS: FUROSEMIDE 40 MG TAB PO SCH (09:46)
[2021-01-21] MEDS: FERROUS SULFATE 325 MG TAB PO SCH (09:46)
[2021-01-21] MEDS: allopurinoL 100 MG TAB PO SCH ×2 (09:46→16:09)
[2021-01-21 11:34] LABS: Glucose,Whole Blood 190 mg/dL (75-99)
[2021-01-21 16:20] LABS: Glucose,Whole Blood 175 mg/dL (75-99)
[2021-01-21 20:06] LABS: Glucose,Whole Blood 170 mg/dL (75-99)
[2021-01-21] MEDS: ATORVASTATIN 80 MG TAB PO SCH (20:34)
[2021-01-22 07:59] LABS: Glucose,Whole Blood 127 mg/dL (75-99)
[2021-01-22] MEDS: INSULN ASP PRT/INSULIN ASPART 100 UNIT/ML 10 ML VIAL SQ SCH ×2 (09:24→17:33)
[2021-01-22] MEDS: INSULIN ASPART (NovoLOG) 100 UNIT/ML VIAL SQ SCH ×4 (09:24→21:31)
[2021-01-22] MEDS: PANTOPRAZOLE 40 MG TABLET PO SCH (09:24)
[2021-01-22] MEDS: ACETAMINOPHEN TAB 325 MG TAB PO PRN (09:38)
[2021-01-22] MEDS: hydrALAZINE HCL 50 MG TAB PO SCH ×3 (09:39→21:30)
[2021-01-22] MEDS: APIXABAN 2.5 MG TABLET PO SCH ×2 (09:39→16:36)
[2021-01-22] MEDS: DOXAZOSIN 4 MG TAB PO SCH (09:39)
[2021-01-22] MEDS: FUROSEMIDE 40 MG TAB PO SCH (09:39)
[2021-01-22] MEDS: carvediloL 6.25 MG TAB PO SCH ×2 (09:39→16:36)
[2021-01-22] MEDS: AZITHROMYCIN 250 MG TAB PO SCH (09:39)
[2021-01-22] MEDS: allopurinoL 100 MG TAB PO SCH ×2 (09:39→16:36)
[2021-01-22] MEDS: FERROUS SULFATE 325 MG TAB PO SCH (09:39)
[2021-01-22] MEDS: DOCUSATE 100 MG CAP PO SCH ×2 (09:40→16:36)
[2021-01-22 12:07] LABS: Glucose,Whole Blood 187 mg/dL (75-99)
[2021-01-22] MEDS: HYDROPHILIC CREAM 180 GM TUBE TOPICAL SCH (13:04)
[2021-01-22 13:41] VITALS: BMI 26.3
--- NOTE | 2021-01-22 15:37 | P.PN ---
Subjective Progress Note Date: 01/22/21 HISTORY OF PRESENT ILLNESS This is an 85-year-old female patient of Dr. Bill and Dr. Diana with past medical history of coronary artery disease status post CABG in 2011 foll owed by myocardial infarction, chronic systolic heart failure, valvular heart disease in the form of severe aortic stenosis and moderate to severe tricuspid regurgitation and severe pulmonary hypertension, hypertension, hypertensive cardiovascular disease, hyperlipidemia, chronic kidney disease stage III, anemia of chronic disease, chronic gout diabetes mellitus type 2 insulin requiring, cervical stenosis, chronic back pain, generalized anxiety disorder. 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 Patient was hospitalized the end of December due to right intertrochanteric fracture secondary to mechanical fall status post intramedullary hip screw on 01/[address] Conroy. She was given 1 unit of packed RBCs during her stay. Patient was stabilized and discharged to [facility] for subacute rehab. Patient has been doing well there until this morning when her blood sugar was found to be 34. This was around 3 AM there was change in mental status and patient was "babbling" with concern for TIA and patient was brought into [facility] for further evaluation. Family states that initially, she did not recognize family but after she received bag of IV fluids, she was able to state her family members names. Mati larios is complaining of nausea and feeling sick. Family stated that she has been eating well at the custodial except for yesterday she was not drinking very much as there was no water in her room. Blood sugar in the emergency center was 120. WBC 18.3, hemoglobin 10, platelet count 464. INR 1.0. Sodium 135, BUN 41 and creatinine 1.07. Total bilirubin 1.5, AST 39, ALT 26, alk phosphatase 133. Troponins are 0.064. Patient is status post 2 L of IV fluids. Chest x-ray reveals increased pulmonary interstitial density similar to old exam. Probable pulmonary fibrosis. Mild heart failure not entirely excluded. Cardiomegaly unchanged. CAT scan of the brain showed cerebral atrophy. No acute intracranial abnormality. No change. Mild right maxillary sinusitis unchanged. CT angiogram of the head and neck revealed limited exam. No intracranial angiographic abnormality. Limited evaluation of the neck. Likely more than 50 of both internal carotid arteries. Stenosis could be more than 70%. Patient is seen today in the emergency center waiting for a bed on the heart attack stepdown unit, consults with vascular surgery, neurology and orthopedic. 01/16: Ultrasound of the bilateral lower extremity negative for DVT. Patient has been seen by multiple consultants. Wound care has ordered triad and heel protectors which are in place. Orthopedics are following and hip x-ray has been completed. Patient is to be weightbearing as tolerated on the right lower extremity with assistance and walker. No concern at this time for infection. Hip x-ray showed no complication. Patient has been evaluated by neurology with recommendations to avoid hypoglycemia, vascular surgery. 4 possible ICA stenosis, continue eliquis and Lipitor. Vascular surgery has followed and patient has known carotid stenosis and follows the office with Dr. Diana. Plan to continue medical management and recommended revascularization if greater than 80% and acceptable surgical candidate. Patient is seen today sitting up eating her breakfast. She denies having any hip pain. No nausea or vomiting and no abdominal pain. Blood pressure remains elevated for which hydralazine increased frequency to 100 mg 3 times daily. Blood sugars have been running 81- 223. Discharge plan is return to [facility] tomorrow. 01/17: Patient was resumed on Novolog 70/30 yesterday at 15u bid and blood sugars are controlled slightly elevated, 132-195. Insulin will be increased to 17u bid and continued on novolog scale. Patient noted to be confused this morning which started last evening with hallucinations. Medications reviewed. She has not received [place] since 01/15 but will be discontinued. No signs of infection but chest x-ray will be ordered. She is afebrile, HR 62, BP 182/52 prior to morning meds. Blood culture no growth at 24 hours. Anticipate discharge back to [facility] on Wednesday. 01/19: Patient was supposed to go back to [facility] yesterday however she did not get the authorization and subsequent she was kept in the hospital for another 24 hours, patient appears to be less confused today, she has a poor appetite, she is not eating much today increased swelling in the left upper extremity, disc ussed with nursing staff taken off her IV site, apply K pad's, keep the arm elevated reevaluate in the next 24 hours, discontinue triad cream and apply skin prep to the right heel of fluid, bilateral heel protectors, physical therapy to put the patient in the chair 3 times every day 01/20: Chest x-ray reveals mild scattered infiltrates more focal on the left lower lobe. Typical pneumonia should be considered also consider atelectasis and pneumonia in the left lower lobe slightly worsened. Patient will be continued on azathioprine. Discharge plan is to return to [facility] once insurance authorization has been obtained. 02/22: She was prepared for discharge to [facility] yesterday but insurance authorization remains pending. Patient is more awake and alert age day. She continues to need help with all ADLs except for eating secondary to hip fracture. PT and OT are following. Patient has been afebrile, heart rate 65, blood pressure 160/63, pulse ox 97% on room air. Blood sugars are running between 127 and 175. Patient will be discharged to [facility] once insurance authorization has been obtained. REVIEW OF SYSTEMS Constitutional: No fever, no chills, no night sweats. No weight change. Noted weakness, reported fatigue reported lethargy. No daytime sleepiness. EENT: No headache. No blurred vision or double vision, no loss of vision. No loss of Hearing, no ringing in the ears, no dizziness. No nasal drainage or congestion. No epistaxis. No sore throat. Lungs: No shortness of breath, cough, no sputum production. No wheezing. Cardiovascular: No chest pain, no lower extremity edema. No palpitations. No paroxysmal nocturnal dyspnea. No orthopnea. No lightheadedness or dizziness. No syncopal episodes. Abdominal: Denies abdominal pain. Denies nausea, no vomiting. No diarrhea. No constipation. No bloody or tarry stools.. No loss of appetite. Decreased water intake yesterday. Genitourinary: No dysuria, increased frequency, urgency. No urinary retention. Musculoskeletal: No myalgias. Reported muscle weakness, reported gait dysfu nction, no frequent falls. No back pain. No neck pain. Denies right hip pain. Integumentary: Noted right hip surgical wound, right heel ulcer/wound, no lesions. No rash or pruritus. No unusual bruising. Neurologic: No aphasia. No facial droop. Noted change in mentation. No head injury. No headache. No paralysis. No paresthesia. Psychiatric: No depression. No anxiety. No mood swings. No hallucinations. Endocrine: Noted abnormal blood sugars. No weight change. PHYSICAL EXAMINATION Gen: This is this is an 85-year-old female. Patient is resting in bed appears to be comfortable and in no acute distress. HEENT: Head is atraumatic, normocephalic. Pupils equal, round. Sclerae is anicteric. Oral mucous membranes are slightly dry. NECK: Supple. No JVP. Decreased carotid upstroke bilaterally. No lymphadenopathy. No thyromegaly. LUNGS: Decreased breath sounds at the bases. No wheezes or rhonchi. No intercostal retractions. No accessory muscle usage. HEART: Permanent pacemaker located in the left upper precordium, first heart sound is depressed, second heart sound is normal, there is systolic ejection murmur 3/6 located in the right upper sternal border didn't to the neck. ABDOMEN: Soft. Bowel sounds are present. No masses. No tenderness. EXTREMITIES: No pedal edema. No calf tenderness. Dorsalis pedis palpable bilaterally. NEUROLOGICAL: Patient is awake, alert and oriented x2. Mild confusion. Cranial nerves 2 through 12 are grossly intact. Muscle power 4 out of 5 in upper extremities and 3 out of 5 in left lower extremities ASSESSMENT AND PLAN 1. Acute metabolic encephalopathy most likely secondary to hypoglycemia status post glucagon, possible TIA ruled out, dehydration. Humalog 7030 resumed yesterday afternoon at 15 units twice every day, physical therapy to continue to work with the patient. 2. Leukocytosis of unclear etiology. patient does have a blood blister to the right heel, discontinue triad cream and continue skin prep once every day offload and heel protectors 3. Moderate carotid stenosis in the range of 70%, no need for vascular intervention at this time, continue with aggressive prescribed medication keep LDL closer 55-70 repeat in 6 months. 4. Right intertrochanteric fracture secondary to mechanical fall Status post right intramedullary hip screw on 01/01. Consult with orthopedics appreciated. Patient is weightbearing as tolerated to the right lower extremity, [place] tomorrow morning. 2. Thrombocytopenia. stable. 3. Diabetes mellitus type 2 insulin requiring, uncontrolled with hyperglycemia. Hemoglobin A1c 9.6. Patient will be placed on NovoLog scale before meals and at bedtime, resume NovoLog 75/25 tomorrow morning at 30 units 3 times daily. 4. History of coronary artery disease status post CABG in 2011 followed by stenting. Patient resumed on Coreg and Lipitor. 5. Chronic systolic heart failure. Patient was restarted back on her Lasix 40 mg orally once every day as well as carvedilol 6. Valvular heart disease with severe aortic stenosis, moderate to severe tricuspid regurgitation and severe pulmonary hypertension. continue conservative management. 7. Hypertension, hypertensive cardiovascular disease. Continue Coreg 6.25 mg orally twice every day, continue Cardura 4 mg orally once every day, hydralazine 100 mg orally 3 times every day. 8. Hyperlipidemia. Continue Lipitor 80 mg orally once every day. 9. Chronic kidney disease stage III. Continue to monitor the patient CMP avoid prophylaxis. 10. Anemia of chronic disease. Stable at this time. 11. Chronic gout. Continue allopurinol 100 mg twice daily. 12. COVID-19 testing negative. 13. Left upper extremity edema due to IV infiltration discontinue IV site apply K pad's keep the arm elevated. DISCHARGE PLAN Return to [facility] today once insurance authorization will like she Impression and plan of care have been directed as dictated by the signing physician. Talai Schneider nurse practitioner acting as scribe for signing physician. Objective - Vital Signs Vital signs: Vital Signs Temp 97.6 F 01/22/21 12:50 Pulse 61 01/22/21 12:50 Resp 16 01/22/21 12:50 BP 147/82 01/22/21 12:50 Pulse Ox 96 01/22/21 12:50 Intake & Output 01/21/21 01/22/21 01/22/21 18:59 06:59 18:59 Intake Total 360 480 Output Total 100 Balance 360 380 Weight 74 kg 74 kg Intake: Oral 360 480 Output: Urine 100 Other: Voiding Method Bedpan Bedpan # Voids 1 1 1 # Bowel Movements 1 1 - Labs CBC & Chem 7: 01/20/21 07:24 01/20/21 07:24 Labs: Abnormal Lab Results - Last 24 Hours (Table) 01/21/21 01/21/21 01/22/21 Range/Units 16:18 20:05 07:48 POC Glucose (mg/dL) 175 H 170 H 127 H (75-99) mg/dL 01/22/21 Range/Units 12:04 POC Glucose (mg/dL) 187 H (75-99) mg/dL
[2021-01-22 17:04] LABS: Glucose,Whole Blood 177 mg/dL (75-99)
[2021-01-22 20:22] LABS: Glucose,Whole Blood 198 mg/dL (75-99)
[2021-01-22] MEDS: ATORVASTATIN 80 MG TAB PO SCH (21:30)
[2021-01-23 07:16] LABS: Glucose,Whole Blood 151 mg/dL (75-99)
[2021-01-23] MEDS: INSULN ASP PRT/INSULIN ASPART 100 UNIT/ML 10 ML VIAL SQ SCH ×2 (10:56→17:53)
[2021-01-23] MEDS: PANTOPRAZOLE 40 MG TABLET PO SCH (10:56)
[2021-01-23] MEDS: INSULIN ASPART (NovoLOG) 100 UNIT/ML VIAL SQ SCH ×3 (10:56→17:54)
[2021-01-23] MEDS: APIXABAN 2.5 MG TABLET PO SCH ×2 (11:12→16:32)
[2021-01-23] MEDS: DOXAZOSIN 4 MG TAB PO SCH (11:12)
[2021-01-23] MEDS: FERROUS SULFATE 325 MG TAB PO SCH (11:13)
[2021-01-23] MEDS: AZITHROMYCIN 250 MG TAB PO SCH (11:13)
[2021-01-23] MEDS: FUROSEMIDE 40 MG TAB PO SCH (11:13)
[2021-01-23] MEDS: DOCUSATE 100 MG CAP PO SCH ×2 (11:13→16:32)
[2021-01-23] MEDS: ACETAMINOPHEN TAB 325 MG TAB PO PRN (11:13)
[2021-01-23] MEDS: hydrALAZINE HCL 50 MG TAB PO SCH ×2 (11:13→16:32)
[2021-01-23] MEDS: carvediloL 6.25 MG TAB PO SCH ×2 (11:13→16:32)
[2021-01-23] MEDS: allopurinoL 100 MG TAB PO SCH ×2 (11:13→16:32)
[2021-01-23] MEDS: HYDROPHILIC CREAM 180 GM TUBE TOPICAL SCH (11:16)
[2021-01-23 11:57] LABS: Glucose,Whole Blood 187 mg/dL (75-99)
[2021-01-23 16:24] VITALS: BP 168/82; PULSE 60; RESP 17; TEMP 97.4
[2021-01-23 16:55] LABS: Glucose,Whole Blood 178 mg/dL (75-99)
[2021-01-23] MEDS ORDERED: DOXAZOSIN 4 MG TAB PO SCH (21:00)
== END 2021-01-23 18:53 | DRG 637 ==
LOC: EC 03:30 → 3SCARD 05:50 → OBSVTOIN 11:03 → 3SCARD 13:55
PROVIDERS: ADMIT Internal Medicine; ATTEND Internal Medicine
DX: E11.649 Type 2 diabetes mellitus with hypoglycemia without coma (principal); G93.41 Metabolic encephalopathy; J18.1 Lobar pneumonia, unspecified organism; I13.0 Hypertensive heart and chronic kidney disease with heart failure and stage 1 through stage 4 chronic kidney disease, or unspecified chronic kidney disease; I50.22 Chronic systolic (congestive) heart failure; R44.3 Hallucinations, unspecified; E11.65 Type 2 diabetes mellitus with hyperglycemia; E11.621 Type 2 diabetes mellitus with foot ulcer; E11.22 Type 2 diabetes mellitus with diabetic chronic kidney disease; Z20.822 Contact with and (suspected) exposure to COVID-19; E78.5 Hyperlipidemia, unspecified; I27.29 Other secondary pulmonary hypertension; L97.509 Non-pressure chronic ulcer of other part of unspecified foot with unspecified severity; J84.10 Pulmonary fibrosis, unspecified; N18.30 Chronic kidney disease, stage 3 unspecified; D69.6 Thrombocytopenia, unspecified; F03.90 Unspecified dementia, unspecified severity, without behavioral disturbance, psychotic disturbance, mood disturbance, and anxiety; Z79.4 Long term (current) use of insulin; D63.8 Anemia in other chronic diseases classified elsewhere; E66.9 Obesity, unspecified; F41.1 Generalized anxiety disorder; I08.3 Combined rheumatic disorders of mitral, aortic and tricuspid valves; I25.2 Old myocardial infarction; I49.3 Ventricular premature depolarization; D72.829 Elevated white blood cell count, unspecified; E86.0 Dehydration; L89.611 Pressure ulcer of right heel, stage 1; I25.10 Atherosclerotic heart disease of native coronary artery without angina pectoris; J32.0 Chronic maxillary sinusitis; I65.23 Occlusion and stenosis of bilateral carotid arteries; S72.141D Displaced intertrochanteric fracture of right femur, subsequent encounter for closed fracture with routine healing; M48.02 Spinal stenosis, cervical region; G31.89 Other specified degenerative diseases of nervous system; M1A.9XX0 Chronic gout, unspecified, without tophus (tophi); S90.821A Blister (nonthermal), right foot, initial encounter; Z91.81 History of falling; R01.1 Cardiac murmur, unspecified; R29.6 Repeated falls; Z90.710 Acquired absence of both cervix and uterus; Z90.49 Acquired absence of other specified parts of digestive tract; Z91.19 Patient's noncompliance with other medical treatment and regimen; Z95.0 Presence of cardiac pacemaker; Z95.1 Presence of aortocoronary bypass graft; Z95.5 Presence of coronary angioplasty implant and graft; Z96.641 Presence of right artificial hip joint; Z88.0 Allergy status to penicillin; Z88.5 Allergy status to narcotic agent; Z88.8 Allergy status to other drugs, medicaments and biological substances; Z79.01 Long term (current) use of anticoagulants; Z86.79 Personal history of other diseases of the circulatory system; Z79.899 Other long term (current) drug therapy
CPT/HCPCS: 36415; 70450; 70496; 70498; 71045; 73502; 80053; 80306; 81003; 82607; 82746; 83921; 84207; 84484; 85025; 85027; 85610; 85652; 85730; 87040; 87635; 93005; 93880; 93970; 96360; 99285

== ENCOUNTER 2021-02-01 07:52 | Inpatient (IN) | payer MEDICARE ==
--- NOTE | 2021-02-01 08:07 | ED ---
General Adult HPI - General Stated complaint: fall/hip injury Time Seen by Provider: 02/01/21 07:54 Source: patient Mode of arrival: EMS Limitations: no limitations - History of Present Illness Initial comments: Dictation was produced using [employer] dictation software. please excuse any grammatical, word or spelling errors. Chief Complaint: 85-year-old female brought in from [facility], [place] in rehab Center presents to the ER for concerns of left hip fracture History of Present Illness: 85-year-old female she is a poor historian. Patient allegedly fell last night. Patient states she is trying to "get urine." This morning she allegedly was having pain. EMS was called. EMS noted that patient has a shortened and externally rotated left lower extremity. Supposedly patient had just fractured pelvis in the recent past. Chart review shows that patient had right-sided hip fracture that was repaired on January 02. There is a small patient was seen in the emergency department for altered mental status. The ROS documented in this emergency department record has been reviewed and confirmed by me. Those systems with pertinent positive or negative responses have been documented in the HPI. All other systems are other negative and/or noncontributory. PHYSICAL EXAM: General Impression: Alert and oriented x3/4, not in acute distress HEENT: Normocephalic atraumatic, extra-ocular movements intact, pupils equal and reactive to light bilaterally, mucous membranes moist. Cardiovascular: Heart regular rate and rhythm Chest: Able to complete full sentences, no retractions, no tachypnea Abdomen: abdomen soft, non-tender, non-distended, no organomegaly Musculoskeletal: Pulses present and equal in all extremities, no peripheral dar ma, left lower extremity shortened and externally rotated Motor: no focal deficits noted Neurological: CN II-XII grossly intact, no focal motor or sensory deficits noted Skin: Intact with no visualized rashes Psych: Normal affect and mood ED course: 85-year-old feel presents to the emergency department after fall. Last month patient had a hip repair of the right [facility]. She is here in emergency department today. It appears that she had fractured her left hip. Laboratory evaluation obtained. CBC, coag panel, metabolic panel is unremarkable. Computed tomography scan of the brain and C-spine shows no acute processes. Chest x-ray is nonacute. Left hip x-ray and pelvis x-ray shows comminuted left-sided intertrochanteric fracture. Case discussed with on-call orthopedic surgery Dr. Olivas. She is went accept patient's care. Medicine is consulted for medical clearance. EKG interpretation: Ventricular rate 65, paced rhythm, MI interval 122, QRS 28, QTc 567. No MI prolongation, no QTC prolongation, no ST or T-wave changes noted. EKG compared to 01/15/2021 showing no changes. Overall, this EKG is unremarkable - Related Data Home Medications Medication Instructions Recorded Confirmed Allopurinol 100 mg PO BID@0800,1700 03/05/14 01/15/21 Atorvastatin [Lipitor] 80 mg PO HS 09/24/14 01/15/21 Doxazosin [Cardura] 4 mg PO DAILY@0800 12/10/18 01/15/21 Apixaban [Eliquis] 2.5 mg PO BID@0800,1700 01/01/21 01/15/21 Dapagliflozin Propanediol [Farxiga] 5 mg PO DAILY@0800 01/01/21 01/15/21 Nitroglycerin Sl Tabs [Nitrostat] 0.4 mg SL Q5M PRN 01/01/21 01/15/21 Docusate [Colace] 100 mg PO BID@0800,1700 01/15/21 01/15/21 Ferrous Sulfate [Iron (65 MG 325 mg PO DAILY@0800 01/15/21 01/15/21 Elemental)] Magnesium Hydroxide [Milk of 7,200 mg PO Q48H PRN 01/15/21 01/15/21 Magnesia Concentrate] Na Phos,M-B/Na Phos,Di-Ba [Fleet 133 ml RECTAL DAILY PRN 01/15/21 01/15/21 Adult] Pantoprazole [Protonix] 40 mg PO DAILY@0600 01/15/21 01/15/21 bisacodyL [Dulcolax] 10 mg RECTAL DAILY PRN 01/15/21 01/15/21 carvediloL [Coreg] 6.25 mg PO BID@0800,1700 01/15/21 01/15/21 Previous Rx's Medication Instructions Recorded Acetaminophen Tab [Tylenol] 650 mg PO Q4HR PRN tab 01/17/21 Furosemide [Lasix] 40 mg PO DAILY #0 01/17/21 hydrALAZINE HCL [Apresoline] 100 mg PO TID tab 01/17/21 Azithromycin [Zithromax] 250 mg PO DAILY #5 tab 01/20/21 Insuln Asp Prt/Insulin Aspart 15 unit SQ AC-BID ml 01/20/21 [NovoLOG MIX 70-30 VIAL] Allergies Allergy/AdvReac Type Severity Reaction Status Date / Time cortisone Allergy Rash/Hives Verified 02/01/21 08:05 morphine Allergy Unknown Verified 02/01/21 08:05 Penicillins Allergy Rash/Hives Verified 02/01/21 08:05 Review of Systems ROS Statement: Those systems with pertinent positive or pertinent negative responses have been documented in the HPI. ROS Other: All systems not noted in ROS Statement are negative. 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 Last Myocardial Infarction Date:: 2011 History of Any Multi-Drug Resistant Organisms: None Reported Past Surgical History: Cholecystectomy, Coronary Bypass/CABG, Hysterectomy Additional Past Surgical History / Comment(s): 8x D&C, CABG 7 Blockages, bilateral foot surgery to remove tumors Past Anesthesia/Blood Transfusion Reactions: No Reported Reaction Type of Cardiac Device: Permanent Pacemaker Device Placement Date:: 09/15/19 Past Psychological History: No Psychological Hx Reported Smoking Status: Never smoker Past Alcohol Use History: Occasional Past Drug Use History: None Reported - Past Family History Mother Family Medical History: Cancer, Diabetes Mellitus Additional Family Medical History / Comment(s): Mother at age 84 from Alzheimer's, old age. No coronary artery disease, no diabetes, history of breast cancer. Father Family Medical History: Congestive Heart Failure (CHF) Additional Family Medical History / Comment(s): Father in his early 80s from diabetes, occasions. No coronary artery disease. Brother(s) Family Medical History: Cancer (Patient is lives with her , functionally active denies any need a walker or assistance) Additional Family Medical History / Comment(s): Patient had total of 4 brothers. One at 69 from alcohol abuse. One at age 8 from kidney failure, a third brother has of unknown cause. One brother is alive at age 75 with no major medical problems. Sister(s) Additional Family Medical History / Comment(s): Patient has one sister with Crohn's 1 with irritable bowel syndrome. Patient does not have any children. General Exam Limitations: no limitations Course Vital Signs 02/01/21 07:58 Temperature 98.4 F Pulse Rate 67 Respiratory 16 Rate Blood Pressure 151/53 O2 Sat by Pulse 97 Oximetry Medical Decision Making - Lab Data Result diagrams: 02/01/21 08:17 02/01/21 08:17 Lab Results 02/01/21 02/01/21 02/01/21 Range/Units 08:17 08:17 08:17 WBC 8.4 (3.8-10.6) k/uL RBC 3.12 L (3.80-5.40) m/uL Hgb 10.7 L (11.4-16.0) gm/dL Hct 33.0 L (34.0-46.0) % MCV 105.7 H (80.0-100.0) fL MCH 34.2 (25.0-35.0) pg MCHC 32.4 (31.0-37.0) g/dL RDW 16.0 H (11.5-15.5) % Plt Count 295 (150-450) k/uL MPV 8.7 Neutrophils % 81 % Lymphocytes % 10 % Monocytes % 6 % Eosinophils % 2 % Basophils % 0 % Neutrophils # 6.8 (1.3-7.7) k/uL Lymphocytes # 0.8 L (1.0-4.8) k/uL Monocytes # 0.5 (0-1.0) k/uL Eosinophils # 0.1 (0-0.7) k/uL Basophils # 0.0 (0-0.2) k/uL Anisocytosis Slight Macrocytosis Moderate PT 10.6 (9.0-12.0) sec INR 1.0 (<1.2) APTT 24.1 (22.0-30.0) sec Sodium 139 (137-145) mmol/L Potassium 3.3 L (3.5-5.1) mmol/L Chloride 107 (98-107) mmol/L Carbon Dioxide 24 (22-30) mmol/L Anion Gap 8 mmol/L BUN 16 (7-17) mg/dL Creatinine 0.99 (0.52-1.04) mg/dL Est GFR (CKD-EPI)AfAm 61 (>60 ml/min/1.73 sqM) Est GFR (CKD-EPI)NonAf 53 (>60 ml/min/1.73 sqM) Glucose 160 H (74-99) mg/dL Calcium 9.5 (8.4-10.2) mg/dL Disposition Clinical Impression: Hip fracture Disposition: ADMITTED IP TO THIS HOSP Condition: Fair Referrals: Leela Bill MD [Primary Care Provider] - 1-2 days
[2021-02-01 08:36] LABS: Anisocytosis Slight; Basophils % (A) 0 %; Eosinophils # (A) 0.1 k/uL (0-0.7); Eosinophils % (A) 2 %; HGB 10.7 gm/dL (11.4-16.0); Lymphocytes # (A) 0.8 k/uL (1.0-4.8); Lymphocytes % (A) 10 %; MCH 34.2 pg (25.0-35.0); MCHC 32.4 g/dL (31.0-37.0); MCV 105.7 fL (80.0-100.0); Macrocytosis Moderate; Mean Platelet Volume 8.7; Monocytes # (A) 0.5 k/uL (0-1.0); Monocytes % (A) 6 %; Neutrophils # (A) 6.8 k/uL (1.3-7.7); Neutrophils % (A) 81 %; Platelet Count 295 k/uL (150-450); RBC 3.12 m/uL (3.80-5.40); WBC 8.4 k/uL (3.8-10.6)
--- NOTE | 2021-02-01 08:47 | CT ---
EXAMINATION TYPE: CT brain elena myers DATE OF EXAM: 02/01/2021 COMPARISON: None HISTORY: Fall CT DLP: 1317.[address] of the brain was performed. The ventricles, basal cisterns and sulci overlying the cerebral convexities demonstrate mild enlargem ent. There is no evidence for intracranial hemorrhage or sulcal effacement. There is decreased attenuatio n about the periventricular white matter and deep white matter of both cerebral hemispheres, compatib le with chronic small vessel ischemia. No mass effects are seen. If symptoms persist consider MRI. Osseous calvarium is intact. IMPRESSION: 1. Age related atrophic and chronic small vessel ischemic change without acute intracranial process seen at this time. CT Cervical Spine: Unenhanced CT of the cervical spine was performed with bone and soft tissue window settings submitted . Coronal and sagittal reconstruction is obtained. There is normal alignment and prevertebral soft tissues. No evidence for acute cervical fracture . Scattered degenerative disc disease and spondylosis. Biapical scarring. IMPRESSION: 1. No evidence for acute fracture or subluxation of the cervical spine.
--- NOTE | 2021-02-01 08:48 | XR ---
EXAMINATION TYPE: XR Hip LT and AP Pelvis DATE OF EXAM: 02/01/2021 CLINICAL HISTORY: pain TECHNIQUE: AP and frogleg views of the left hip are obtained. Single view of the pelvis is also subm itted. COMPARISON: None. FINDINGS: There is comminuted intratrochanteric fracture noted. The joint space appears the narrowed . The overlying soft tissue appears unremarkable. IMPRESSION: 1. Comminuted left sided intertrochanteric fracture.
--- NOTE | 2021-02-01 08:49 | XR ---
EXAMINATION TYPE: XR chest 1V portable DATE OF EXAM: 02/01/2021 HISTORY: Shortness of breath. COMPARISON: 01/20/2021 TECHNIQUE: Single view of the chest is submitted. FINDINGS: Demonstrated are scattered senescent parenchymal change. There is no evidence for focal infiltrate. The heart is stable. Hilar and mediastinal structures are within normal limits. Degenerative changes are seen of the dorsal spine. IMPRESSION: 1. Chronic changes without evidence for acute pulmonary disease.
[2021-02-01 08:56] LABS: Partial Thromboplastin Time 24.1 sec (22.0-30.0); Prothrombin Time 10.6 sec (9.0-12.0)
[2021-02-01 08:58] LABS: Calcium 9.5 mg/dL (8.4-10.2); Potassium 3.3 mmol/L (3.5-5.1)
[2021-02-01] MEDS ORDERED: fentaNYL (PF) 50 MCG/ML 2 ML AMP IVP STA (09:04)
[2021-02-01] MEDS ORDERED: ONDANSETRON 4 MG/2 ML VIAL IVP PRN (09:16)
[2021-02-01] MEDS ORDERED: NALOXONE 0.4 MG/ML 1 ML VIAL IV PRN (09:16)
[2021-02-01] MEDS: SODIUM CHLORIDE 0.9% 1,000 ML IV SCH ×3 (09:33→21:28)
--- NOTE | 2021-02-01 09:58 | P.HPOR ---
History of Present Illness H&P Date: 02/01/21 Chief Complaint: Left hip fracture This is a pleasant 85-year-old female who was at [facility] for inpatient rehab following a right hip fracture and subsequent surgical fixation proximally one month ago. The patient attempted to get out of bed on her own la evening and fell, sustaining injury to her left hip. On exam and x-ray in the emergency department she was found to have a basilar neck fracture of the left hip. We were contacted for orthopedic admission and surgical intervention. The patient is currently on Eliquis. 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 Last Myocardial Infarction Date:: 2011 History of Any Multi-Drug Resistant Organisms: None Reported Past Surgical History: Cholecystectomy, Coronary Bypass/CABG, Hysterectomy Additional Past Surgical History / Comment(s): 8x D&C, CABG 7 Blockages, bilateral foot surgery to remove tumors Past Anesthesia/Blood Transfusion Reactions: No Reported Reaction Type of Cardiac Device: Permanent Pacemaker Device Placement Date:: 09/15/19 Past Psychological History: No Psychological Hx Reported Smoking Status: Never smoker Past Alcohol Use History: Occasional Past Drug Use History: None Reported - Past Family History Mother Family Medical History: Cancer, Diabetes Mellitus Additional Family Medical History / Comment(s): Mother at age 84 from Alzheimer's, old age. No coronary artery disease, no diabetes, history of breast cancer. Father Family Medical History: Congestive Heart Failure (CHF) Additional Family Medical History / Comment(s): Father in his early 80s from diabetes, occasions. No coronary artery disease. Brother(s) Family Medical History: Cancer (Patient is lives with her , funct ionally active denies any need a walker or assistance) Additional Family Medical History / Comment(s): Patient had total of 4 brothers. One at 69 from alcohol abuse. One at age 8 from kidney failure, a third brother has of unknown cause. One brother is alive at age 75 with no major medical problems. Sister(s) Additional Family Medical History / Comment(s): Patient has one sister with Crohn's 1 with irritable bowel syndrome. Patient does not have any children. Medications and Allergies Home Medications Medication Instructions Recorded Confirmed Type Allopurinol 100 mg PO BID@0800,1700 03/05/14 02/01/21 History Atorvastatin [Lipitor] 80 mg PO HS@2100 09/24/14 02/01/21 History Doxazosin [Cardura] 4 mg PO DAILY@0800 12/10/18 02/01/21 History Apixaban [Eliquis] 2.5 mg PO BID@0800,1700 01/01/21 02/01/21 History Dapagliflozin Propanediol [Farxiga] 5 mg PO DAILY@0800 01/01/21 02/01/21 History Nitroglycerin Sl Tabs [Nitrostat] 0.4 mg SL Q5M PRN 01/01/21 02/01/21 History Docusate [Colace] 100 mg PO BID@0800,1700 01/15/21 02/01/21 History Ferrous Sulfate [Iron (65 MG 325 mg PO DAILY@0800 01/15/21 02/01/21 History Elemental)] Magnesium Hydroxide [Milk of 7,200 mg PO Q48H PRN 01/15/21 02/01/21 History Magnesia Concentrate] Na Phos,M-B/Na Phos,Di-Ba [Fleet 133 ml RECTAL DAILY PRN 01/15/21 02/01/21 History Adult] Pantoprazole [Protonix] 40 mg PO DAILY@0600 01/15/21 02/01/21 History bisacodyL [Dulcolax] 10 mg RECTAL DAILY PRN 01/15/21 02/01/21 History carvediloL [Coreg] 6.25 mg PO BID@0800,1700 01/15/21 02/01/21 History Acetaminophen Tab [Tylenol] 650 mg PO Q4HR PRN tab 01/17/21 02/01/21 Rx Insuln Asp Prt/Insulin Aspart 15 unit SQ AC-BID ml 01/20/21 02/01/21 Rx [NovoLOG MIX 70-30 VIAL] Furosemide [Lasix] 20 mg PO DAILY@1400 PRN 02/01/21 02/01/21 History Furosemide [Lasix] 40 mg PO DAILY@0800 02/01/21 02/01/21 History hydrALAZINE HCL [Apresoline] 100 mg PO TID@0800,1200,1700 02/01/21 02/01/21 History Allergies Allergy/AdvReac Type Severity Reaction Status Date / Time cortisone Allergy Rash/Hives Verified 02/01/21 08:05 morphine Allergy Unknown Verified 02/01/21 08:05 Penicillins Allergy Rash/Hives Verified 02/01/21 08:05 Physical Examination This is a pleasant 85-year-old female in no acute distress. She is alert and oriented 3. Family is present at bedside. Exam of the head neck reveal no obvious deformity. She has fairly good cervical spine motion without difficulty or pain. Exam of the upper extremities unremarkable. There is no obvious deformity. She has full shoulder, elbow, wrist and finger motion bilaterally. Neurovascular status to the upper extremities is intact. Exam of the lower extremities reveals shortening and external rotation to the left leg. She has full foot and ankle motion bilaterally. Neurovascular status to the lower extremities is intact. Results X-rays of the pelvis and left hip reveal intramedullary hip screw fixation to the right hip with no new fracture noted. There is a basilar neck fracture of the left hip with mild displacement. - Labs Labs: Abnormal Lab Results - Last 24 Hours (Table) 02/01/21 02/01/21 Range/Units 08:17 08:17 RBC 3.12 L (3.80-5.40) m/uL Hgb 10.7 L (11.4-16.0) gm/dL Hct 33.0 L (34.0-46.0) % MCV 105.7 H (80.0-100.0) fL RDW 16.0 H (11.5-15.5) % Lymphocytes # 0.8 L (1.0-4.8) k/uL Potassium 3.3 L (3.5-5.1) mmol/L Glucose 160 H (74-99) mg/dL H & H 02/01/21 Range/Units 08:17 Hgb 10.7 L (11.4-16.0) gm/dL Hct 33.0 L (34.0-46.0) % Coagulation 02/01/21 Range/Units 08:17 INR 1.0 (<1.2) Result Diagrams: 02/01/21 08:17 02/01/21 08:17 Assessment and Plan (1) Closed left hip fracture Current Visit: Yes Status: Acute Code(s): S72.002A - FRACTURE OF UNSP PART OF NECK OF LEFT FEMUR, INIT SNOMED Code(s): 043758613 (2) History of fracture of right hip Current Visit: Yes Status: Acute Code(s): Z87.81 - PERSONAL HISTORY OF (HEALED) TRAUMATIC FRACTURE SNOMED Code(s): 365850596 (3) Diabetes mellitus Current Visit: Yes Status: Acute Code(s): E11.9 - TYPE 2 DIABETES MELLITUS WITHOUT COMPLICATIONS SNOMED Code(s): 95968728 (4) Status post-operative repair of closed fracture of right hip Current Visit: No Status: Acute Code(s): Z98.890 - OTHER SPECIFIED POSTPROCEDURAL STATES; Z87.81 - PERSONAL HISTORY OF (HEALED) TRAUMATIC FRACTURE SNOMED Code(s): 096992890 Plan: The clinical and x-ray findings are discussed with the patient and her family. It is recommended she undergo closed reduction with insertion of intramedullary hip screw of the left hip. The patient is nothing by mouth and Dr. Conroy would like to proceed today if cleared medically. She will most likely require continued inpatient rehab postoperatively.
[2021-02-01] MEDS ORDERED: NITROGLYCERIN SL TABS 0.4 MG TAB SUBLINGUAL PRN (11:28)
[2021-02-01] MEDS ORDERED: ACETAMINOPHEN TAB 325 MG TAB PO PRN (11:28)
--- NOTE | 2021-02-01 11:28 | P.CONS ---
History of Present Illness - Reason for Consult Consult date: 02/01/21 Medical management Requesting physician: Fer Conroy - Chief Complaint Left basilar neck fracture of the left hip - History of Present Illness Consult date 02/01/2021 HISTORY OF PRESENT ILLNESS This is an 85-year-old female patient of mine with past medical history of coronary artery disease status post CABG in 2011 followed by myocardial infarction, chronic systolic heart failure, valvular heart disease in the form of severe aortic stenosis and moderate to severe tricuspid regurgitation and severe pulmonary hypertension, hypertension, hypertensive cardiovascular disease, hyperlipidemia, chronic kidney disease stage III, anemia of chronic disease, chronic gout diabetes mellitus type 2 insulin requiring, cervical stenosis, chronic back pain, generalized anxiety disorder. Patient was recently discharged from [facility] after she was admitted to the hospital for metabolic encephalopathy due to significant and severe hypoglycemia she had a full neurological workup including CT scan of the brain as well as CT angiography of the carotid artery and the [place], and she ended up discharge back to [facility] for physical therapy rehabilitation where she was starting with physical therapy with her after she sustained a left IT hip fracture that was treated about a month ago by orthopedic associate while she was at [facility] patient tried to set up on her own without any help and she fell down and landed in her left hip she sustained significant pain and injury recommended for the patient to have a stat x-rays of the left hip however the patient was in so much pain so she was sent to the emergency department at [facility] where she was found to have a left basilar neck fracture she was admitted and orthopedic surgery and were asked to see the patient for medical management and preoperative medical clearance she is scheduled to go for an IT I believe tomorrow morning, REVIEW OF SYSTEMS Constitutional: No fever, no chills, no night sweats. No weight change. Noted weakness, reported fatigue reported lethargy. No daytime sleepiness. HEENT: No headache. No blurred vision or double vision, no loss of vision. No loss of Hearing, no ringing in the ears, no dizziness. No nasal drainage or congestion. No epistaxis. No sore throat. Lungs: No shortness of breath, cough, no sputum production. No wheezing. Cardiovascular: No chest pain, no lower extremity edema. No palpitations. No paroxysmal nocturnal dyspnea. No orthopnea. No lightheadedness or dizziness. No syncopal episodes. Abdominal: Reports abdominal pain. Reports nausea, no vomiting. No diarrhea. No constipation. No bloody or tarry stools.. No loss of appetite. Decreased water intake yesterday. Genitourinary: No dysuria, increased frequency, urgency. No urinary retention. Musculoskeletal: No myalgias. Reported muscle weakness, reported gait dysfunction, frequent falls. Positive for back pain. No neck pain, severe left hip pain. Integumentary: Noted right hip surgical wound, right heel ulcer/wound, no lesions. No rash or pruritus. No unusual bruising. No change in hair or na ils. Neurologic: No aphasia. No facial droop. No change in mentation. No head injury. No headache. No paralysis. No paresthesia. Psychiatric: No depression. No anxiety. No mood swings. Endocrine: Noted abnormal blood sugars. No weight change. No excessive sweating or thirst. No cold intolerance. MEDICAL HISTORY Coronary artery disease status post CABG in 2011 followed by myocardial infarction Chronic systolic heart failure Valvular heart disease with severe aortic stenosis, moderate to severe tricuspid regurgitation and severe pulmonary hypertension Hypertension, hypertensive cardiovascular disease Hyperlipidemia Chronic kidney disease stage III Anemia of chronic disease Chronic gout Diabetes mellitus type 2, insulin requiring Cervical stenosis Chronic back pain Generalized anxiety disorder SURGICAL HISTORY Coronary artery bypass grafting Cholecystectomy Hysterectomy D&C Bilateral foot surgery to remove tumors Permanent pacemaker 09/29 SOCIAL HISTORY Patient is lives with her , functionally active denies any need a walker or assistance FAMILY HISTORY Mother at age 84 from Alzheimer's, old age. No coronary artery disease, no diabetes, history of breast cancer. Father in his early 80s from diabetes, occasions. No coronary artery disease. Patient had total of 4 brothers. One at 69 from alcohol abuse. One at age 8 from kidney failure, a third brother has of unknown cause. One brother is alive at age 75 with no major medical problems. Patient has one sister with Crohn's 1 with irritable bowel syndrome. Patient does not have any children. PHYSICAL EXAMINATION Gen: This is this is an 85-year-old female. Patient is resting in bed appears to be comfortable and in no acute distress. Family members are at bedside. HEENT: Head is atraumatic, normocephalic. Pupils equal, round. Sclerae is anicteric. Oral mucous membranes are very dry. NECK: Supple. No JVP. Decreased carotid upstroke bilaterally. No lymphadenopathy. No thyromegaly. LUNGS: Decreased breath sounds at the bases. No wheezes or rhonchi. No intercostal retractions. No accessory muscle usage. HEART: Permanent pacemaker located in the left upper precordium, first heart sound is depressed, second heart sound is normal, there is systolic ejection murmur 3/6 located in the right upper sternal border didn't to the neck. ABDOMEN: Soft. Bowel sounds are present. No masses. No tenderness. EXTREMITIES: Positive for pedal edema. No calf tenderness. left lower extremity is shortened with external rotation. Dorsalis pedis palpable bilaterally. NEUROLOGICAL: Patient is awake, alert and oriented x3. Cranial nerves 2 through 12 are grossly intact. Muscle power 4 out of 5 in upper extremities and 3 out of 5 in left lower extremities ASSESSMENT AND PLAN 1. left basilar neck fracture of the left hip status post a fall. Patient was seen early by of the surgery she is scheduled to go for surgical correction tomorrow morning, patient will be cleared for surgery with more than average risk. 3. Diabetes mellitus type 2 insulin requiring, uncontrolled with hyperglycemia. Hemoglobin A1c 9.6. Patient will be placed on NovoLog scale before meals and at bedtime, resume NovoLog 75/25 tomorrow morning at 15 units 2 times daily. 4. History of coronary artery disease status post CABG in 2011 followed by stenting. Continue carvedilol 6.25 mg orally twice every day as well as Lipitor 40 mg orally once every day. 5. Chronic systolic heart failure. Appears to be stable at this time. KVO 6. Valvular heart disease with severe aortic stenosis, moderate to severe tricuspid regurgitation and severe pulmonary hypertension. Continue patient on carvedilol 6.25 mg orally twice every day, continue hydralazine 100 mg orally 3 times every day, and doxazosin 4 mg orally once every day. 7. Hypertension, hypertensive cardiovascular disease. Continue carvedilol 6.25 mg orally twice every day, hydralazine 100 mg orally 3 times every day, and doxazosin 4 mg orally once every day 8 Hyperlipidemia. Continue Lipitor 40 mg orally once every day. 9. Chronic kidney disease stage III. Monitor the patient CMP. 10. Anemia of chronic disease. monitor the patient's CBC transfuse for hemoglobin less than 7 11. Chronic gout. Continue allopurinol 100 mg twice daily. 12. COVID-19 testing negative. 13. Thank you for the consult we'll follow the patient along with you. DISCHARGE PLAN Return to [facility] to complete subacute rehab. Past Medical History Past Medical History: Coronary Artery Disease (CAD), Heart Failure, Diabetes Mellitus, GERD/Reflux, Hyperlipidemia, Hypertension, Myocardial Infarction ([place]), Osteoarthritis (OA), Renal Disease Additional Past Medical History / Comment(s): History of valvular heart disease with aortic stenosis, moderate mitral regurgitation stenosis, coronary artery disease with previous [place] and previous bypass surgery, chronic anemia, chronic osteoarthritis and neck pain, diabetes mellitus, hypertension and hyperlipidemia, 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 Last Myocardial Infarction Date:: 2011 History of Any Multi-Drug Resistant Organisms: None Reported Past Surgical History: Cholecystectomy, Coronary Bypass/CABG, Hysterectomy Additional Past Surgical History / Comment(s): 8x D&C, CABG 7 Blockages, bilateral foot surgery to remove tumors Past Anesthesia/Blood Transfusion Reactions: No Reported Reaction Type of Cardiac Device: Permanent Pacemaker Device Placement Date:: 09/15/19 Past Psychological History: No Psychological Hx Reported Smoking Status: Never smoker Past Alcohol Use History: Occasional Past Drug Use History: None Reported - Past Family History Mother Family Medical History: Cancer, Diabetes Mellitus Additional Family Medical History / Comment(s): Mother at age 84 from Alzheimer's, old age. No coronary artery disease, no diabetes, history of breast cancer. Father Family Medical History: Congestive Heart Failure (CHF) Additional Family Medical History / Comment(s): Father in his early 80s from diabetes, occasions. No coronary artery disease. Brother(s) Family Medical History: Cancer (Patient is lives with her , functionally active denies any need a walker or assistance) Additional Family Medical History / Comment(s): Patient had total of 4 brothers. One at 69 from alcohol abuse. One at age 8 from kidney failure, a third brother has of unknown cause. One brother is alive at age 75 with no major medical problems. Sister(s) Additional Family Medical History / Comment(s): Patient has one sister with Crohn's 1 with irritable bowel syndrome. Patient does not have any children. Medications and Allergies Home Medications Medication Instructions Recorded Confirmed Type Allopurinol 100 mg PO BID@0800,1700 03/05/14 02/01/21 History Atorvastatin [Lipitor] 80 mg PO HS@2100 09/24/14 02/01/21 History Doxazosin [Cardura] 4 mg PO DAILY@0800 12/10/18 02/01/21 History Apixaban [Eliquis] 2.5 mg PO BID@0800,1700 01/01/21 02/01/21 History Dapagliflozin Propanediol [Farxiga] 5 mg PO DAILY@0800 01/01/21 02/01/21 History Nitroglycerin Sl Tabs [Nitrostat] 0.4 mg SL Q5M PRN 01/01/21 02/01/21 History Docusate [Colace] 100 mg PO BID@0800,1700 01/15/21 02/01/21 History Ferrous Sulfate [Iron (65 MG 325 mg PO DAILY@0800 01/15/21 02/01/21 History Elemental)] Magnesium Hydroxide [Milk of 7,200 mg PO Q48H PRN 01/15/21 02/01/21 History Magnesia Concentrate] Na Phos,M-B/Na Phos,Di-Ba [Fleet 133 ml RECTAL DAILY PRN 01/15/21 02/01/21 History Adult] Pantoprazole [Protonix] 40 mg PO DAILY@0600 01/15/21 02/01/21 History bisacodyL [Dulcolax] 10 mg RECTAL DAILY PRN 01/15/21 02/01/21 History carvediloL [Coreg] 6.25 mg PO BID@0800,1700 01/15/21 02/01/21 History Acetaminophen Tab [Tylenol] 650 mg PO Q4HR PRN tab 01/17/21 02/01/21 Rx Insuln Asp Prt/Insulin Aspart 15 unit SQ AC-BID ml 01/20/21 02/01/21 Rx [NovoLOG MIX 70-30 VIAL] Furosemide [Lasix] 20 mg PO DAILY@1400 PRN 02/01/21 02/01/21 History Furosemide [Lasix] 40 mg PO DAILY@0800 02/01/21 02/01/21 History hydrALAZINE HCL [Apresoline] 100 mg PO TID@0800,1200,1700 02/01/21 02/01/21 History Allergies Allergy/AdvReac Type Severity Reaction Status Date / Time cortisone Allergy Rash/Hives Verified 02/01/21 08:05 morphine Allergy Unknown Verified 02/01/21 08:05 Penicillins Allergy Rash/Hives Verified 02/01/21 08:05 Physical Exam Vitals: Vital Signs Temp Pulse Resp BP Pulse Ox 02/01/21 09:42 69 16 151/78 95 02/01/21 07:58 98.4 F 67 16 151/53 97 Intake and Output 01/31/21 02/01/21 02/01/21 22:59 06:59 14:59 Other: Weight 72.575 kg Results CBC & Chem 7: 02/01/21 08:17 02/01/21 08:17 Labs: Abnormal Lab Results - Last 24 Hours (Table) 02/01/21 02/01/21 Range/Units 08:17 08:17 RBC 3.12 L (3.80-5.40) m/uL Hgb 10.7 L (11.4-16.0) gm/dL Hct 33.0 L (34.0-46.0) % MCV 105.7 H (80.0-100.0) fL RDW 16.0 H (11.5-15.5) % Lymphocytes # 0.8 L (1.0-4.8) k/uL Potassium 3.3 L (3.5-5.1) mmol/L Glucose 160 H (74-99) mg/dL
[2021-02-01] MEDS: oxyCODONE-APAP 5-325MG 1 EACH TAB PO PRN ×2 (12:31→21:24)
[2021-02-01] MEDS: hydrALAZINE HCL 50 MG TAB PO SCH ×2 (12:31→17:16)
[2021-02-01] MEDS: allopurinoL 100 MG TAB PO SCH (17:16)
[2021-02-01] MEDS: DOCUSATE 100 MG CAP PO SCH (17:16)
[2021-02-01] MEDS: carvediloL 6.25 MG TAB PO SCH (17:16)
[2021-02-01 17:20] LABS: Glucose,Whole Blood 190 mg/dL (75-99)
[2021-02-01] MEDS: INSULN ASP PRT/INSULIN ASPART 100 UNIT/ML 10 ML VIAL SQ SCH (17:43)
[2021-02-01 21:12] LABS: Glucose,Whole Blood 182 mg/dL (75-99)
[2021-02-01] MEDS: ATORVASTATIN 80 MG TAB PO SCH (21:24)
[2021-02-02] MEDS ORDERED: Potassium Replacement Protocol 1 EACH MISC MISCELLANE PRN (03:41)
[2021-02-02] MEDS: PANTOPRAZOLE 40 MG TABLET PO SCH (05:00)
[2021-02-02] MEDS: POTASSIUM CHLORIDE ER 20 MEQ TAB.ER PO SCH ×2 (05:01→05:40)
[2021-02-02] MEDS: oxyCODONE-APAP 5-325MG 1 EACH TAB PO PRN (05:01)
[2021-02-02 07:18] LABS: Glucose,Whole Blood 103 mg/dL (75-99)
[2021-02-02] MEDS: DOCUSATE 100 MG CAP PO SCH ×2 (08:01→16:16)
[2021-02-02] MEDS: FERROUS SULFATE 325 MG TAB PO SCH (08:01)
[2021-02-02] MEDS: DOXAZOSIN 4 MG TAB PO SCH (08:01)
[2021-02-02] MEDS: carvediloL 6.25 MG TAB PO SCH ×2 (08:01→16:15)
[2021-02-02] MEDS: hydrALAZINE HCL 50 MG TAB PO SCH ×3 (08:01→16:16)
[2021-02-02] MEDS: allopurinoL 100 MG TAB PO SCH ×2 (08:01→16:15)
[2021-02-02] MEDS: INSULN ASP PRT/INSULIN ASPART 100 UNIT/ML 10 ML VIAL SQ SCH ×2 (08:02→16:16)
[2021-02-02 10:14] LABS: African American GFR (CKD) 45.3 (60.0-200.0); Albumin 2.8 g/dL (3.8-4.9); Albumin/Globulin Ratio 1.65 (1.60-3.17); BUN/Creat Ratio 15.48 Ratio (12.00-20.00); Blood Urea Nitrogen 19.5 mg/dL (9.0-27.0); Calcium 8.8 mg/dL (8.7-10.3); Carbon Dioxide 24.8 mmol/L (21.6-31.8); Globulin 1.7 g/dL (1.6-3.3); Non-African American GFR(CKD) 39.1 (60.0-200.0); Total Bilirubin 0.4 mg/dL (0.30-1.20); Total Protein 4.5 g/dL (6.2-8.2)
[2021-02-02 11:22] LABS: Glucose,Whole Blood 125 mg/dL (75-99)
--- NOTE | 2021-02-02 12:00 | P.PN ---
Subjective Progress Note Date: 02/02/21 HISTORY OF PRESENT ILLNESS This is an 85-year-old female patient of mine with past medical history of coronary artery disease status post CABG in 2012 followed by myocardial infarct ion, chronic systolic heart failure, valvular heart disease in the form of severe aortic stenosis and moderate to severe tricuspid regurgitation and severe pulmonary hypertension, hypertension, hypertensive cardiovascular disease, hyperlipidemia, chronic kidney disease stage III, anemia of chronic disease, chronic gout diabetes mellitus type 2 insulin requiring, cervical stenosis, chronic back pain, generalized anxiety disorder. Patient was recently discharged from [facility] after she was admitted to the hospital for metabolic encephalopathy due to significant and severe hypoglycemia she had a full neurological workup including CT scan of the brain as well as CT angiography of the carotid artery and the [place], and she ended up discharge back to [facility] for physical therapy rehabilitation where she was starting with physical therapy with her after she sustained a left IT hip fracture that was treated about a month ago by orthopedic associate while she was at [facility] patient tried to set up on her own without any help and she fell down and landed in her left hip she sustained significant pain and injury recommended for the patient to have a stat x-rays of the left hip however the patient was in so much pain so she was sent to the emergency department at [facility] where she was found to have a left basilar neck fracture she was admitted and orthopedic surgery and were asked to see the patient for medical management and preoperative medical clearance she is scheduled to go for an IT I believe tomorrow morning. 02/02: Patient is laying down in bed in no apparent distress she underwent left hip intramedullary nailing, pain is controlled, continue with DVT prophylaxis as the patient is back on Eliquis 2.5 mg orally twice every day, continue incentive Stromberger, continue physical therapy evaluation, continue current pain management as outlined by orthopedic surgery. REVIEW OF SYSTEMS Constitutional: No fever, no chills, no night sweats. No weight change. Noted weakness, reported fatigue reported lethargy. No daytime sleepiness. HEENT: No headache. No blurred vision or double vision, no loss of vision. No loss of Hearing, no ringing in the ears, no dizziness. No nasal drainage or congestion. No epistaxis. No sore throat. Lungs: No shortness of breath, cough, no sputum production. No wheezing. Cardiovascular: No chest pain, no lower extremity edema. No palpitations. No paroxysmal nocturnal dyspnea. No orthopnea. No lightheadedness or dizziness. No syncopal episodes. Abdominal: Reports abdominal pain. Reports nausea, no vomiting. No diarrhea. No constipation. No bloody or tarry stools.. No loss of appetite. Decreased water intake yesterday. Genitourinary: No dysuria, increased frequency, urgency. No urinary retention. Musculoskeletal: No myalgias. Reported muscle weakness, reported gait dysfunction, frequent falls. Positive for back pain. No neck pain, severe left hip pain. Integumentary: Noted right hip surgical wound, right heel ulcer/wound, no lesions. No rash or pruritus. No unusual bruising. No change in hair or nails. Neurologic: No aphasia. No facial droop. No change in mentation. No head injury. No headache. No paralysis. No paresthesia. Psychiatric: No depression. No anxiety. No mood swings. Endocrine: Noted abnormal blood sugars. No weight change. No excessive sweating or thirst. No cold intolerance. PHYSICAL EXAMINATION Gen: This is this is an 85-year-old female. Patient is resting in bed appears to be comfortable and in no acute distress. Family members are at bedside. HEENT: Head is atraumatic, normocephalic. Pupils equal, round. Sclerae is anicteric. Oral mucous membranes are very dry. NECK: Supple. No JVP. Decreased carotid upstroke bilaterally. No lymphadenopathy. No thyromegaly. LUNGS: Decreased breath sounds at the bases. No wheezes or rhonchi. No intercostal retractions. No accessory muscle usage. HEART: Permanent pacemaker located in the left upper precordium, first heart s ound is depressed, second heart sound is normal, there is systolic ejection murmur 3/6 located in the right upper sternal border didn't to the neck. ABDOMEN: Soft. Bowel sounds are present. No masses. No tenderness. EXTREMITIES: Positive for pedal edema. No calf tenderness. left lower extremity is shortened with external rotation. Dorsalis pedis palpable bilaterally. NEUROLOGICAL: Patient is awake, alert and oriented x3. Cranial nerves 2 through 12 are grossly intact. Muscle power 4 out of 5 in upper extremities and 3 out of 5 in left lower extremities ASSESSMENT AND PLAN 1. Left basilar hip fracture awaiting to go to the OR today for left IM nail that would be scheduled at 2:00 today. 3. Diabetes mellitus type 2 insulin requiring, uncontrolled with hyperglycemia. Hemoglobin A1c 9.6. Patient will be placed on NovoLog scale before meals and at bedtime, resume NovoLog 75/25 tomorrow morning at 15 units 2 times daily. 4. History of coronary artery disease status post CABG in 2011 followed by stenting. Continue carvedilol 6.25 mg orally twice every day as well as Lipitor 40 mg orally once every day. 5. Chronic systolic heart failure. Appears to be stable at this time. KVO 6. Valvular heart disease with severe aortic stenosis, moderate to severe tricuspid regurgitation and severe pulmonary hypertension. Continue patient on carvedilol 6.25 mg orally twice every day, continue hydralazine 100 mg orally 3 times every day, and doxazosin 4 mg orally once every day. 7. Hypertension, hypertensive cardiovascular disease. Continue carvedilol 6.25 mg orally twice every day, hydralazine 100 mg orally 3 times every day, and doxazosin 4 mg orally once every day 8 Hyperlipidemia. Continue Lipitor 40 mg orally once every day. 9. Chronic kidney disease stage III. Monitor the patient CMP. 10. Anemia of chronic disease. monitor the patient's CBC transfuse for hemoglobin less than 7 11. Chronic gout. Continue allopurinol 100 mg twice daily. 12. COVID-19 testing negative. DISCHARGE PLAN Return to [facility] to complete subacute rehab. Objective - Vital Signs Vital signs: Vital Signs Temp 97.5 F L 02/02/21 08:00 Pulse 63 02/02/21 08:00 Resp 16 02/02/21 08:00 BP 169/66 02/02/21 08:00 Pulse Ox 92 L 02/02/21 08:00 Intake & Output 02/01/21 02/02/21 02/02/21 18:59 06:59 18:59 Output Total 700 Balance -700 Weight 72.575 kg Output: Urine 700 Other: Voiding Method Indwelling Catheter # Bowel Movements 0 - Labs CBC & Chem 7: 02/01/21 08:17 02/02/21 06:19 Labs: Abnormal Lab Results - Last 24 Hours (Table) 02/01/21 02/01/21 02/02/21 Range/Units 17:19 21:10 06:19 Est GFR (CKD-EPI)AfAm 45.3 L (60.0-200.0) Est GFR (CKD-EPI)NonAf 39.1 L (60.0-200.0) Glucose 120 H (70-110) mg/dL POC Glucose (mg/dL) 190 H 182 H (75-99) mg/dL Total Protein 4.5 L (6.2-8.2) g/dL Albumin 2.8 L (3.8-4.9) g/dL 02/02/21 02/02/21 Range/Units 07:16 11:20 Est GFR (CKD-EPI)AfAm (60.0-200.0) Est GFR (CKD-EPI)NonAf (60.0-200.0) Glucose (70-110) mg/dL POC Glucose (mg/dL) 103 H 125 H (75-99) mg/dL Total Protein (6.2-8.2) g/dL Albumin (3.8-4.9) g/dL
[2021-02-02] MEDS ORDERED: LACTATED RINGERS 1,000 ML IV ONE (14:06)
[2021-02-02] MEDS ORDERED: fentaNYL (PF) 50 MCG/ML 2 ML AMP ONE (14:06)
[2021-02-02] MEDS ORDERED: ETOMIDATE 2 MG/ML 10 ML VIAL ONE (14:06)
[2021-02-02] MEDS ORDERED: SUCCINYLCHOLINE CHLORIDE 100 MG/5 ML SYR IV ONE (14:06)
[2021-02-02] MEDS ORDERED: SODIUM CHLORIDE 0.9% 100 ML with ceFAZolin 2,000 MG IV ONE ×2 (14:35)
[2021-02-02] MEDS ORDERED: NALOXONE 0.4 MG/ML 1 ML VIAL IV PRN (16:05)
[2021-02-02] MEDS ORDERED: MORPHINE SULFATE 2 MG/ML SYRINGE IV PRN (16:05)
--- NOTE | 2021-02-02 16:05 | P.OP ---
Date of Procedure: 02/02/21 Preoperative Diagnosis: 1. Left basicervical proximal femur fracture 2. History of right hip fracture status post short intramedullary hip screw 1 month ago 3. Osteoporosis with multiple recent falls Postoperative Diagnosis: Same Procedure(s) Performed: Operative fixation of left basicervical hip fracture with short intramedullary hip screw Anesthesia: JOSSE Surgeon: Michelle Olivas Ice Cream Server #1: Fer Conroy Estimated Blood Loss (ml): 150 IV fluids (ml): 1,200 Pathology: none sent Condition: stable Disposition: PACU Indications for Procedure: The patient is very pleasant 85 erythema multiple medical problems who sustained many recent falls. She sustained a right intertrochanteric hip fracture a month ago and underwent a short intramedullary hip screw. She is recovering in a rehab center when she fell yesterday. She was brought to the ER where x-rays showed a basicervical hip fracture. She was cleared for surgery by internal medicine. He met with the patient discuss treatment options. Our recommendation was to stabilize her hip fracture with intramedullary hip screw given the basicervical an extracapsular nature of her fracture. We discussed potential risks and complications of surgery including but certainly not limited to risk of anesthesia, infection, delayed wound healing, damage to local blood vessels or nerves, nonunion, malunion, varus collapse, hardware failure, posterior medical arthritis, need for further surgery, DVT, PE, acute coronary event, other medical complications, and possibly loss of life or limb. The patient and her family understand these potential risks and also nodular less common Rotations are possible. They understand that she has an increased risk for having a complication particularly medical issue given the fact that she has had 2 hip fractures in the last month. They provided their verbal and written consent to go forward with surgery Description of Procedure: The patient was identified in preoperative holding and the correct left leg was marked by Dr. Olivas. The patient was then brought back to the operating room. She is given a general anesthetic and preoperative antibiotics were on the gurney. Which with a hand table were placed. The patient was then carefully transferred onto a hand table. All bony prominences well-padded. The left arm was draped across the body and secured with foam, a pillow, and tape to facili coronado intraoperative manipulation. A timeout was performed identifying the correct patient, operative extremity, and procedure. The contralateral right leg was scissored toward the floor and abductor. A closed reduction was performed of the left leg using a combination of traction, internal rotation, and adduction. Fluoroscopy was brought in to verify reduction on orthogonal views. The left leg was then prepped and draped in standard sterile fashion. We began by making a 3 cm incision just proximal to the tip of the greater trochanter in line with the femur. An awl was placed just medial to the tip of the greater trochanter and was centered with the canal and the lateral view. A 3.2 mm guide pin was then gently advanced down to the level of lesser trochanter and its position was verified on orthogonal views. A soft tissue protector and opening reamer were used. A 3.2 mm guide pin was removed and a ball-tipped guidewire was placed. We then reamed in half millimeter increments up to a 12.5 mm reamer. A short gamma nail was then dispensed and hooked up to a targeting arm. It was gently advanced over the guidewire until it was fully seated. The ball-tipped guidewire was removed. The trocar for the lag screw was placed through the targeting arm and an incision was made through the skin and fascia down the lateral cortex of the femur. A guidepin was placed in the center center position on orthogonal views, reamed, and a lag screw was placed generating excellent compression. Compression was applied through the targeting arm. A set screw was placed proximally. A distal interlocking screw was then placed through a third incision using the targeting arm. The targeting arm was removed and final fluoroscopic images were taken. The wounds were thoroughly irrigated and closed in layers. Sterile dressings were applied. The patient was then awoken from her anesthetic, transferred off and a table to a [facility], and brought to recovery having tolerated the procedure well. Dr. Bairesma a skilled assistant clinical nurse manager throughout the procedure for patient positioning, retraction, placement of implant, closure of wound, and application of dressing. Plan: The patient can weight-bear as tolerated on both of her lower extremities. She will need 2 doses of postoperative antibiotics. We'll resume eloquence for DVT prophylaxis tomorrow. Discharge planning and process. Her prognosis is guarded given bilateral hip fractures.
[2021-02-02 16:24] LABS: Glucose,Whole Blood 164 mg/dL (75-99)
[2021-02-02] MEDS ORDERED: MORPHINE SULFATE 4 MG/ML SYRINGE ONE (16:26)
[2021-02-02] MEDS ORDERED: HYDROmorphone 0.5 MG/0.5 ML SYRINGE IVP ONE (16:30)
[2021-02-02] MEDS ORDERED: hydrALAZINE HCL 20 MG/ML 1 ML VIAL IV ONE (16:35)
[2021-02-02] MEDS ORDERED: hydrALAZINE HCL 20 MG/ML 1 ML VIAL ONE (16:39)
--- NOTE | 2021-02-02 17:03 | XR ---
EXAMINATION TYPE: XR Hip Complete LT DATE OF EXAM: 02/02/2021 COMPARISON: Yesterday HISTORY: Hip surgery TECHNIQUE: 4 views FINDINGS: 4 fluoroscopic images were obtained at show placement of intramedullary malvin in transverse s crew fixing the intertrochanteric fracture left femur. Fragments are in anatomic position. There is 1 minute and 13 seconds of fluoroscopy time recorded. IMPRESSION: No complicating process seen.
[2021-02-02 20:40] LABS: Basophils % (A) 0 %; Eosinophils # (A) 0.1 k/uL (0-0.7); Eosinophils % (A) 1 %; HCT 32.6 % (34.0-46.0); HGB 9.9 gm/dL (11.4-16.0); Hypochromasia Marked; Lymphocytes # (A) 0.8 k/uL (1.0-4.8); Lymphocytes % (A) 7 %; MCH 33.6 pg (25.0-35.0); MCHC 30.5 g/dL (31.0-37.0); MCV 110.4 fL (80.0-100.0); Macrocytosis Marked; Mean Platelet Volume 8.7; Monocytes # (A) 0.8 k/uL (0-1.0); Monocytes % (A) 7 %; Neutrophils # (A) 9.4 k/uL (1.3-7.7); Neutrophils % (A) 84 %; Platelet Count 225 k/uL (150-450); RBC 2.95 m/uL (3.80-5.40); RDW 15.2 % (11.5-15.5); WBC 11.2 k/uL (3.8-10.6)
[2021-02-02] MEDS: HYDROcodone/APAP 5-325MG 1 EACH TAB PO PRN (20:53)
[2021-02-02] MEDS: SODIUM CHLORIDE 0.9% 1,000 ML IV SCH (20:53)
[2021-02-02] MEDS: ATORVASTATIN 80 MG TAB PO SCH (20:53)
[2021-02-02 21:03] LABS: Glucose,Whole Blood 173 mg/dL (75-99)
[2021-02-03] MEDS: HYDROcodone/APAP 5-325MG 1 EACH TAB PO PRN ×2 (03:35→11:34)
[2021-02-03] MEDS: PANTOPRAZOLE 40 MG TABLET PO SCH (05:58)
[2021-02-03 07:39] LABS: Glucose,Whole Blood 193 mg/dL (75-99)
[2021-02-03] MEDS: hydrALAZINE HCL 50 MG TAB PO SCH ×3 (07:50→17:30)
[2021-02-03] MEDS: carvediloL 6.25 MG TAB PO SCH ×2 (07:50→17:30)
[2021-02-03] MEDS: allopurinoL 100 MG TAB PO SCH ×2 (07:50→17:29)
[2021-02-03] MEDS: FERROUS SULFATE 325 MG TAB PO SCH (07:50)
[2021-02-03] MEDS: DOCUSATE 100 MG CAP PO SCH ×2 (07:50→17:30)
[2021-02-03] MEDS: DOXAZOSIN 4 MG TAB PO SCH (07:51)
[2021-02-03] MEDS: INSULN ASP PRT/INSULIN ASPART 100 UNIT/ML 10 ML VIAL SQ SCH ×2 (07:52→17:30)
--- NOTE | 2021-02-03 08:22 | FL ---
Fluoroscopy INDICATION: Pain FINDINGS: Fluoroscopy time: 1 minute 13 seconds. Images obtained: 3. IMPRESSIONS: 1. Documentation of fluoroscopy.
--- NOTE | 2021-02-03 09:35 | P.PN ---
Subjective Progress Note Date: 02/03/21 This patient is an 85-year-old female who is status-post operative fixation of left basicervical hip fracture with short intramedullary hip screw on 02/02/[address] Conroy. She also has a history of right hip fracture status-post short intramedullary hip screw 1 month ago. Today's postoperative day #1. Patient is seen and examined bedside this morning. She is currently eating breakfast. She states the pain in her left hip is well-controlled at this time. She is overall feeling well. She has no complaint or concern this morning. She denies chest pain, shortness breath, nausea, vomiting, fevers, chills. Vital signs stable. Objective - Vital Signs Vital signs: Vital Signs Temp 98.5 F 02/03/21 08:00 Pulse 59 L 02/03/21 08:00 Resp 16 02/03/21 08:00 BP 149/60 02/03/21 08:00 Pulse Ox 100 02/03/21 08:00 Intake & Output 02/02/21 02/03/21 02/03/21 18:59 06:59 18:59 Intake Total 600 580 Output Total 450 200 Balance 150 380 Intake: IV 600 Oral 0 Other 580 Output: Urine 300 200 Estimated Blood Loss 150 Other: Voiding Method Indwelling Catheter Indwelling Catheter # Voids 2 # Bowel Movements 0 - Exam on examination, the patient is sitting up in bed in no apparent distress. She is alert and answers questions appropriately. On inspection of the left hip, there are clean, dry, intact surgical dressings in place. No bleeding or drainage to the dressing. There is mild swelling of the thigh, thigh soft and compressible. Bilateral compression cuffs in place bilaterally. Left calf is soft and nontender to palpation. Motor and sensory function is intact of the left lower extremity. Dorsalis pedis pulse +2. Left lower extremity is warm and well- perfused with brisk capillary refill. - Labs CBC & Chem 7: 02/02/21 20:13 02/02/21 06:19 Labs: Abnormal Lab Results - Last 24 Hours (Table) 02/02/21 02/02/21 02/02/21 Range/Units 06:19 11:20 16:21 WBC (3.8-10.6) k/uL RBC (3.80-5.40) m/uL Hgb (11.4-16.0) gm/dL Hct (34.0-46.0) % MCV (80.0-100.0) fL MCHC (31.0-37.0) g/dL Neutrophils # (1.3-7.7) k/uL Lymphocytes # (1.0-4.8) k/uL Macrocytosis Est GFR (CKD-EPI)AfAm 45.3 L (60.0-200.0) Est GFR (CKD-EPI)NonAf 39.1 L (60.0-200.0) Glucose 120 H (70-110) mg/dL POC Glucose (mg/dL) 125 H 164 H (75-99) mg/dL Total Protein 4.5 L (6.2-8.2) g/dL Albumin 2.8 L (3.8-4.9) g/dL 02/02/21 02/02/21 02/03/21 Range/Units 20:13 20:32 07:28 WBC 11.2 H (3.8-10.6) k/uL RBC 2.95 L (3.80-5.40) m/uL Hgb 9.9 L (11.4-16.0) gm/dL Hct 32.6 L (34.0-46.0) % MCV 110.4 H (80.0-100.0) fL MCHC 30.5 L (31.0-37.0) g/dL Neutrophils # 9.4 H (1.3-7.7) k/uL Lymphocytes # 0.8 L (1.0-4.8) k/uL Macrocytosis Marked A Est GFR (CKD-EPI)AfAm (60.0-200.0) Est GFR (CKD-EPI)NonAf (60.0-200.0) Glucose (70-110) mg/dL POC Glucose (mg/dL) 173 H 193 H (75-99) mg/dL Total Protein (6.2-8.2) g/dL Albumin (3.8-4.9) g/dL Assessment and Plan Assessment: Status-post operative fixation of left basicervical hip fracture with short intramedullary hip screw on 02/02/[address] Conroy. Post-operative day #1. History of right hip fracture status-post short intramedullary hip screw 1 month ago. Plan: - Patient may weight-bear as tolerated on the operative leg. Up with assistance, up with a walker. She may also weight-bear as tolerated on the right lower extremity. - Physical therapy for gait and balance training. - Pain management as needed. - Resume Eliquis today for DVT prophylaxis. - 2 doses of post-operative antibiotics complete. - Discharge planning. Anticipate discharge to rehab when medically cleared.
[2021-02-03] MEDS: APIXABAN 2.5 MG TABLET PO SCH ×2 (10:22→22:17)
[2021-02-03 11:25] LABS: Glucose,Whole Blood 193 mg/dL (75-99)
[2021-02-03] MEDS: SODIUM CHLORIDE 0.9% 1,000 ML IV SCH (15:56)
[2021-02-03 16:52] LABS: Glucose,Whole Blood 173 mg/dL (75-99)
[2021-02-03 20:25] LABS: Glucose,Whole Blood 144 mg/dL (75-99)
[2021-02-03] MEDS: ATORVASTATIN 80 MG TAB PO SCH (22:17)
[2021-02-04] MEDS: HYDROcodone/APAP 5-325MG 1 EACH TAB PO PRN ×2 (00:32→08:25)
--- NOTE | 2021-02-04 04:44 | P.PN ---
Subjective Progress Note Date: 02/03/21 Progress note 02/03/2021 HISTORY OF PRESENT ILLNESS This is an 85-year-old female patient of mine with past medical history of coronary artery disease status post CABG in 2011 followed by myocardial infarction, chronic systolic heart failure, valvular heart disease in the form of severe aortic stenosis and moderate to severe tricuspid regurgitation and severe pulmonary hypertension, hypertension, hypertensive cardiovascular disease, hyperlipidemia, chronic kidney disease stage III, anemia of chronic disease, chronic gout diabetes mellitus type 2 insulin requiring, cervical stenosis, chronic back pain, generalized anxiety disorder. Patient was recently discharged from [facility] after she was admitted to the hospital for metabolic encephalopathy due to significant and severe hypoglycemia she had a full neurological workup including CT scan of the brain as well as CT angiography of the carotid artery and the [place], and she ended up discharge back to [facility] for physical therapy rehabilitation where she was starting with physical therapy with her after she sustained a left IT hip fracture that was treated about a month ago by orthopedic associate while she was at [facility] patient tried to set up on her own without any help and she fell down and landed in her left hip she sustained significant pain and injury recommended for the patient to have a stat x-rays of the left hip however the patient was in so much pain so she was sent to the emergency department at [facility] where she was found to have a left basilar neck fracture she was admitted and orthopedic surgery and were asked to see the patient for medical management and preoperative medical clearance she is scheduled to go for an IT I believe tomorrow morning. 02/02: Patient is laying down in bed in no apparent distress she underwent left hip intramedullary nailing, pain is controlled, continue with DVT prophylaxis as the patient is back on Eliquis 2.5 mg orally twice every day, continue incentive Stromberger, continue physical therapy evaluation, continue current pain management as outlined by orthopedic surgery. 02/03: Patient is sitting up in a recliner she is complaining of some pain in the left hip, she denies any chest pain, or shortness breath, she appears a bit pale today, she has no abdominal pain, nausea or vomiting, she seems to be tolerating her treatment very well, physical therapy evaluation is in progress, the plan is to transfer the patient back to [facility] within the next 2 days. REVIEW OF SYSTEMS Constitutional: No fever, no chills, no night sweats. No weight change. Noted weakness, reported fatigue reported lethargy. No daytime sleepiness. HEENT: No headache. No blurred vision or double vision, no loss of vision. No loss of Hearing, no ringing in the ears, no dizziness. No nasal drainage or congestion. No epistaxis. No sore throat. Lungs: No shortness of breath, cough, no sputum production. No wheezing. Cardiovascular: No chest pain, no lower extremity edema. No palpitations. No paroxysmal nocturnal dyspnea. No orthopnea. No lightheadedness or dizziness. No syncopal episodes. Abdominal: Reports no abdominal pain. no nausea, no vomiting. No diarrhea. No constipation. No bloody or tarry stools. Genitourinary: No dysuria, increased frequency, urgency. No urinary retention. Musculoskeletal: No myalgias. Reported muscle weakness, reported gait dysfunction, frequent falls. Positive for back pain. No neck pain, moderate left hip pain. Integumentary: Noted right hip surgical wound, right heel ulcer/wound, no lesions. No rash or pruritus. No unusual bruising. No change in hair or nails. Neurologic: No aphasia. No facial droop. No change in mentation. No head injury. No headache. No paralysis. No paresthesia. Psychiatric: positive for depression. positive for anxiety. No mood swings. Endocrine: Noted abnormal blood sugars. No weight change. No excessive sweat ing or thirst. No cold intolerance. PHYSICAL EXAMINATION Gen: This is this is an 85-year-old female. Patient is sitting up in her recliner appears to be comfortable and in no acute distress. Family members are at bedside. HEENT: Head is atraumatic, normocephalic. Pupils equal, round. Sclerae is anicteric. Oral mucous membranes are very dry. NECK: Supple. No JVP. Decreased carotid upstroke bilaterally. No lymphadenopathy. No thyromegaly. LUNGS: Decreased breath sounds at the bases. No wheezes or rhonchi. No intercostal retractions. No accessory muscle usage. HEART: Permanent pacemaker located in the left upper precordium, first heart sound is depressed, second heart sound is normal, there is systolic ejection murmur 3/6 located in the right upper sternal border didn't to the neck. ABDOMEN: Soft. Bowel sounds are present. No masses. No tenderness. EXTREMITIES: Positive for pedal edema. No calf tenderness. left lower extremity is shortened with external rotation. Dorsalis pedis palpable bilaterally. NEUROLOGICAL: Patient is awake, alert and oriented x2. Cranial nerves 2 through 12 are grossly intact. Muscle power 4 out of 5 in upper extremities and 3 out of 5 in left lower extremities ASSESSMENT AND PLAN 1. POD# 1 post IM nail for left basilar hip fracture, we will continue with current pain management, IS, and we will continue Eliquis 2.5 mg po bid for DVT prophylaxis. 3. Diabetes mellitus type 2 insulin requiring, uncontrolled with hyperglycemia. Hemoglobin A1c 9.6. Patient will be placed on NovoLog scale before meals and at bedtime, resume NovoLog 75/25 tomorrow morning at 15 units 2 times daily. 4. History of coronary artery disease status post CABG in 2011 followed by stenting. Continue carvedilol 6.25 mg orally twice every day as well as Lipitor 40 mg orally once every day. 5. Chronic systolic heart failure. Appears to be stable at this time. KVO 6. Valvular heart disease with severe aortic stenosis, moderate to severe tricuspid regurgitation and severe pulmonary hypertension. Continue patient on carvedilol 6.25 mg orally twice every day, continue hydralazine 100 mg orally 3 times every day, and doxazosin 4 mg orally once every day. 7. Hypertension, hypertensive cardiovascular disease. Continue carvedilol 6.25 mg orally twice every day, hydralazine 100 mg orally 3 times every day, and doxazosin 4 mg orally once every day 8 Hyperlipidemia. Continue Lipitor 40 mg orally once every day. 9. Chronic kidney disease stage III. Monitor the patient CMP. 10. Anemia of chronic disease. monitor the patient's CBC transfuse for hemoglobin less than 7 11. Chronic gout. Continue allopurinol 100 mg twice daily. 12. COVID-19 testing negative. DISCHARGE PLAN Return to [facility] to complete subacute rehab. Objective - Vital Signs Vital signs: Vital Signs Temp 97.6 F 02/03/21 14:00 Pulse 64 02/03/21 14:00 Resp 15 02/03/21 14:00 BP 124/67 02/03/21 14:00 Pulse Ox 100 02/03/21 14:00 Intake & Output 02/02/21 02/03/21 02/03/21 18:59 06:59 18:59 Intake Total 600 580 Output Total 450 200 300 Balance 150 380 -300 Intake: IV 600 Oral 0 Other 580 Output: Urine 300 200 300 Estimated Blood Loss 150 Other: Voiding Method Indwelling Catheter Indwelling Catheter Indwelling Catheter # Voids 2 # Bowel Movements 0 - Labs CBC & Chem 7: 02/02/21 20:13 02/02/21 06:19 Labs: Abnormal Lab Results - Last 24 Hours (Table) 02/02/21 02/02/21 02/03/21 Range/Units 20:13 20:32 07:28 WBC 11.2 H (3.8-10.6) k/uL RBC 2.95 L (3.80-5.40) m/uL Hgb 9.9 L (11.4-16.0) gm/dL Hct 32.6 L (34.0-46.0) % MCV 110.4 H (80.0-100.0) fL MCHC 30.5 L (31.0-37.0) g/dL Neutrophils # 9.4 H (1.3-7.7) k/uL Lymphocytes # 0.8 L (1.0-4.8) k/uL Macrocytosis Marked A POC Glucose (mg/dL) 173 H 193 H (75-99) mg/dL 02/03/21 02/03/21 Range/Units 11:15 16:29 WBC (3.8-10.6) k/uL RBC (3.80-5.40) m/uL Hgb (11.4-16.0) gm/dL Hct (34.0-46.0) % MCV (80.0-100.0) fL MCHC (31.0-37.0) g/dL Neutrophils # (1.3-7.7) k/uL Lymphocytes # (1.0-4.8) k/uL Macrocytosis POC Glucose (mg/dL) 193 H 173 H (75-99) mg/dL
[2021-02-04] MEDS: PANTOPRAZOLE 40 MG TABLET PO SCH (05:56)
[2021-02-04 06:54] LABS: Glucose,Whole Blood 127 mg/dL (75-99)
[2021-02-04] MEDS: allopurinoL 100 MG TAB PO SCH ×2 (08:25→17:10)
[2021-02-04] MEDS: hydrALAZINE HCL 50 MG TAB PO SCH ×3 (08:25→17:10)
[2021-02-04] MEDS: APIXABAN 2.5 MG TABLET PO SCH ×2 (08:26→21:51)
[2021-02-04] MEDS: FERROUS SULFATE 325 MG TAB PO SCH (08:26)
[2021-02-04] MEDS: INSULN ASP PRT/INSULIN ASPART 100 UNIT/ML 10 ML VIAL SQ SCH ×2 (08:26→17:10)
[2021-02-04] MEDS: DOCUSATE 100 MG CAP PO SCH ×2 (08:26→17:10)
[2021-02-04] MEDS: carvediloL 6.25 MG TAB PO SCH ×2 (08:27→17:10)
[2021-02-04] MEDS: DOXAZOSIN 4 MG TAB PO SCH (08:27)
[2021-02-04] MEDS: SODIUM CHLORIDE 0.9% 1,000 ML IV SCH (08:27)
[2021-02-04 09:29] LABS: HCT 24.9 % (37.2-46.3); HGB 7.4 g/dL (12.0-15.0); MCH 32.3 pg (27.0-32.0); MCHC 29.7 g/dL (32.0-37.0); MCV 108.7 fL (80.0-97.0); Platelet Count 168 X 10*3/uL (140-440); RBC 2.29 X 10*6/uL (4.10-5.20); RDW 15.7 % (11.5-14.5); WBC 6.04 X 10*3/uL (4.50-10.00)
[2021-02-04 10:26] LABS: African American GFR (CKD) 43.3 (60.0-200.0); Albumin 2.6 g/dL (3.8-4.9); Albumin/Globulin Ratio 1.59 (1.60-3.17); Anion Gap 7.7 mmol/L (4.00-12.00); BUN/Creat Ratio 19.54 Ratio (12.00-20.00); Blood Urea Nitrogen 25.4 mg/dL (9.0-27.0); Calcium 8.6 mg/dL (8.7-10.3); Carbon Dioxide 23.7 mmol/L (21.6-31.8); Globulin 1.7 g/dL (1.6-3.3); Non-African American GFR(CKD) 37.4 (60.0-200.0); Potassium 4.1 mmol/L (3.5-5.5); Total Bilirubin 0.3 mg/dL (0.30-1.20); Total Protein 4.3 g/dL (6.2-8.2)
[2021-02-04 10:57] LABS: Basophils # (A) 0.02 X 10*3/uL (0.00-0.10); Basophils % (A) 0.3 %; Eosinophils # (A) 0.37 X 10*3/uL (0.04-0.35); Eosinophils % (A) 6.1 %; Lymphocytes # (A) 0.89 X 10*3/uL (0.90-5.00); Lymphocytes % (A) 14.7 %; Monocytes # (A) 0.64 X 10*3/uL (0.20-1.00); Monocytes % (A) 10.6 %
[2021-02-04 10:58] LABS: Acanthocytes 2+; Macrocytosis (M) 2+
--- NOTE | 2021-02-04 11:07 | P.PN ---
Subjective Progress Note Date: 02/04/21 This patient is an 85-year-old female who is status-post operative fixation of left basicervical hip fracture with short intramedullary hip screw on 02/02/[address] Conroy. She also has a history of right hip fracture status-post short intramedullary hip screw 1 month ago. Today's postoperative day #2. Patient is seen and examined bedside this morning. Patient states she was up to the bedside chair yesterday. She states she is overall doing well and the pain in her hip is mild. She is currently eating breakfast. There are no new complaints or concerns today. Patient's hemoglobin is 7.4 this morning. She denies chest pain, shortness of breath, nausea, vomiting, fevers, chills. Vital signs stable. Objective - Vital Signs Vital signs: Vital Signs Temp 98.0 F 02/04/21 08:00 Pulse 67 02/04/21 08:00 Resp 16 02/04/21 08:00 BP 165/72 02/04/21 08:00 Pulse Ox 100 02/04/21 08:00 Intake & Output 02/03/21 02/04/21 02/04/21 18:59 06:59 18:59 Output Total 300 350 Balance -300 -350 Output: Urine 300 350 Other: Voiding Method Indwelling Catheter Indwelling Catheter Indwelling Catheter - Exam On examination, the patient is sitting up in bed in no apparent distress. She is alert and answers questions appropriately. On inspection of the left hip, there are clean, dry, intact surgical dressings in place. No bleeding or drainage to the dressing. There is mild swelling of the thigh, thigh soft and compressible. Bilateral compression cuffs in place bilaterally. Left calf is soft and nontender to palpation. Motor and sensory function is intact of the left lower extremity. Dorsalis pedis pulse +2. Left lower extremity is warm and well- perfused with brisk capillary refill. - Labs CBC & Chem 7: 02/04/21 06:02 02/04/21 06:02 Labs: Abnormal Lab Results - Last 24 Hours (Table) 02/03/21 02/03/21 02/03/21 Range/Units 11:15 16:29 20:23 RBC (4.10-5.20) X 10*6/uL Hgb (12.0-15.0) g/dL Hct (37.2-46.3) % MCV (80.0-97.0) fL MCH (27.0-32.0) pg MCHC (32.0-37.0) g/dL RDW (11.5-14.5) % Lymphocytes # (0.90-5.00) X 10*3/uL Eosinophils # (0.04-0.35) X 10*3/uL Est GFR (CKD-EPI)AfAm (60.0-200.0) Est GFR (CKD-EPI)NonAf (60.0-200.0) Glucose (70-110) mg/dL POC Glucose (mg/dL) 193 H 173 H 144 H (75-99) mg/dL Calcium (8.7-10.3) mg/dL Total Protein (6.2-8.2) g/dL Albumin (3.8-4.9) g/dL Albumin/Globulin Ratio (1.60-3.17) g/dL 02/04/21 02/04/21 02/04/21 Range/Units 06:02 06:02 06:53 RBC 2.29 L (4.10-5.20) X 10*6/uL Hgb 7.4 L (12.0-15.0) g/dL Hct 24.9 L (37.2-46.3) % MCV 108.7 H (80.0-97.0) fL MCH 32.3 H (27.0-32.0) pg MCHC 29.7 L (32.0-37.0) g/dL RDW 15.7 H (11.5-14.5) % Lymphocytes # 0.89 L (0.90-5.00) X 10*3/uL Eosinophils # 0.37 H (0.04-0.35) X 10*3/uL Est GFR (CKD-EPI)AfAm 43.3 L (60.0-200.0) Est GFR (CKD-EPI)NonAf 37.4 L (60.0-200.0) Glucose 124 H (70-110) mg/dL POC Glucose (mg/dL) 127 H (75-99) mg/dL Calcium 8.6 L (8.7-10.3) mg/dL Total Protein 4.3 L (6.2-8.2) g/dL Albumin 2.6 L (3.8-4.9) g/dL Albumin/Globulin Ratio 1.59 L (1.60-3.17) g/dL Assessment and Plan Assessment: Status-post operative fixation of left basicervical hip fracture with short intramedullary hip screw on 02/02/[address] Conroy. Post-operative day #2. History of right hip fracture status-post short intramedullary hip screw 1 month ago. Plan: - Patient may weight-bear as tolerated on the operative leg. Up with assistance, up with a walker. She may also weight-bear as tolerated on the right lower extremity. - Physical therapy for gait and balance training. - Pain management as needed. - Resume Eliquis today for DVT prophylaxis. - 2 doses of post-operative antibiotics complete. - Discharge planning. Anticipate discharge to rehab when medically cleared.
[2021-02-04 11:25] LABS: Glucose,Whole Blood 125 mg/dL (75-99)
[2021-02-04] MEDS: LACTULOSE 20 GM/30 ML CUP PO SCH ×2 (15:56→21:35)
[2021-02-04 16:40] LABS: Glucose,Whole Blood 172 mg/dL (75-99)
[2021-02-04 21:24] LABS: Glucose,Whole Blood 139 mg/dL (75-99)
[2021-02-04] MEDS: ATORVASTATIN 80 MG TAB PO SCH (21:51)
[2021-02-05] MEDS: SODIUM CHLORIDE 0.9% 1,000 ML IV SCH (05:54)
[2021-02-05] MEDS: PANTOPRAZOLE 40 MG TABLET PO SCH (05:56)
[2021-02-05 07:27] LABS: Glucose,Whole Blood 142 mg/dL (75-99)
[2021-02-05] MEDS: INSULN ASP PRT/INSULIN ASPART 100 UNIT/ML 10 ML VIAL SQ SCH ×2 (08:15→17:26)
[2021-02-05] MEDS: allopurinoL 100 MG TAB PO SCH ×2 (09:14→17:26)
[2021-02-05] MEDS: carvediloL 6.25 MG TAB PO SCH ×2 (09:15→17:26)
[2021-02-05] MEDS: hydrALAZINE HCL 50 MG TAB PO SCH ×3 (09:16→17:25)
[2021-02-05] MEDS: FERROUS SULFATE 325 MG TAB PO SCH (09:17)
[2021-02-05] MEDS: DOCUSATE 100 MG CAP PO SCH ×2 (09:18→17:26)
[2021-02-05 09:19] LABS: Basophils # (A) 0.01 X 10*3/uL (0.00-0.10); Basophils % (A) 0.1 %; Eosinophils # (A) 0.25 X 10*3/uL (0.04-0.35); Eosinophils % (A) 3.6 %; HGB 7.9 g/dL (12.0-15.0); Lymphocytes # (A) 0.77 X 10*3/uL (0.90-5.00); MCH 33.2 pg (27.0-32.0); MCHC 30.4 g/dL (32.0-37.0); MCV 109.2 fL (80.0-97.0); Mean Platelet Volume 12.2 fL (9.5-12.2); Monocytes # (A) 0.77 X 10*3/uL (0.20-1.00); Neutrophils # (A) 5.16 X 10*3/uL (1.80-7.70); Neutrophils % (A) 73.9 %; Platelet Count 211 X 10*3/uL (140-440); RBC 2.38 X 10*6/uL (4.10-5.20); RDW 15.6 % (11.5-14.5); WBC 6.99 X 10*3/uL (4.50-10.00)
[2021-02-05] MEDS: DOXAZOSIN 4 MG TAB PO SCH (09:19)
[2021-02-05 09:48] LABS: Albumin 2.8 g/dL (3.8-4.9); Albumin/Globulin Ratio 1.56 (1.60-3.17); Anion Gap 11.2 mmol/L (4.00-12.00); BUN/Creat Ratio 21.45 Ratio (12.00-20.00); Blood Urea Nitrogen 23.6 mg/dL (9.0-27.0); Calcium 8.8 mg/dL (8.7-10.3); Carbon Dioxide 21.8 mmol/L (21.6-31.8); Globulin 1.8 g/dL (1.6-3.3); Non-African American GFR(CKD) 45.7 (60.0-200.0); Potassium 4.3 mmol/L (3.5-5.5); Total Bilirubin 0.5 mg/dL (0.30-1.20); Total Protein 4.6 g/dL (6.2-8.2)
[2021-02-05] MEDS: APIXABAN 2.5 MG TABLET PO SCH ×2 (09:51→21:13)
[2021-02-05] MEDS: LACTULOSE 20 GM/30 ML CUP PO SCH ×2 (09:58→21:13)
[2021-02-05 10:15] LABS: Glucose,Whole Blood 159 mg/dL (75-99)
[2021-02-05] MEDS: HYDROcodone/APAP 5-325MG 1 EACH TAB PO PRN ×2 (10:47→17:56)
--- NOTE | 2021-02-05 12:18 | P.PN ---
Subjective Progress Note Date: 02/05/21 This patient is an 85-year-old female who is status-post operative fixation of left basicervical hip fracture with short intramedullary hip screw on 02/02/[address] Conroy. She also has a history of right hip fracture status-post short intramedullary hip screw 1 month ago. Today's postoperative day #3. Patient is seen and examined bedside this morning. Patient states she is experiencing mild pain in the left hip today. She is taking Delavan for pain. She denies new complaints today. She is currently waiting on [facility] [place] for rehab. Vital signs stable. Objective - Vital Signs Vital signs: Vital Signs Temp 97.9 F 02/05/21 12:05 Pulse 59 L 02/05/21 12:09 Resp 17 02/05/21 12:05 BP 160/61 02/05/21 12:05 Pulse Ox 94 L 02/05/21 12:05 Intake & Output 02/04/21 02/05/21 02/05/21 18:59 06:59 18:59 Intake Total 480 Output Total 250 475 Balance 230 -475 Intake: Oral 480 Output: Urine 250 475 Other: Voiding Method Indwelling Catheter Indwelling Catheter - Exam On examination, the patient is sitting up in bed in no apparent distress. She is alert and answers questions appropriately. On inspection of the left hip, there are clean, dry, intact surgical dressings in place. No bleeding or drainage to the dressing. There is mild swelling of the thigh, thigh soft and compressible. Bilateral compression cuffs in place bilaterally. Left calf is soft and nontender to palpation. Motor and sensory function is intact of the left lower extremity. Dorsalis pedis pulse +2. Left lower extremity is warm and well- perfused with brisk capillary refill. - Labs CBC & Chem 7: 02/05/21 05:20 02/05/21 05:20 Labs: Abnormal Lab Results - Last 24 Hours (Table) 02/04/21 02/04/21 02/05/21 Range/Units 16:38 20:53 05:20 RBC 2.38 L (4.10-5.20) X 10*6/uL Hgb 7.9 L (12.0-15.0) g/dL Hct 26.0 L (37.2-46.3) % MCV 109.2 H (80.0-97.0) fL MCH 33.2 H (27.0-32.0) pg MCHC 30.4 L (32.0-37.0) g/dL RDW 15.6 H (11.5-14.5) % Lymphocytes # 0.77 L (0.90-5.00) X 10*3/uL Est GFR (CKD-EPI)AfAm (60.0-200.0) Est GFR (CKD-EPI)NonAf (60.0-200.0) BUN/Creatinine Ratio (12.00-20.00) Ratio Glucose (70-110) mg/dL POC Glucose (mg/dL) 172 H 139 H (75-99) mg/dL ALT (8-44) U/L Total Protein (6.2-8.2) g/dL Albumin (3.8-4.9) g/dL Albumin/Globulin Ratio (1.60-3.17) g/dL 02/05/21 02/05/21 02/05/21 Range/Units 05:20 07:24 10:13 RBC (4.10-5.20) X 10*6/uL Hgb (12.0-15.0) g/dL Hct (37.2-46.3) % MCV (80.0-97.0) fL MCH (27.0-32.0) pg MCHC (32.0-37.0) g/dL RDW (11.5-14.5) % Lymphocytes # (0.90-5.00) X 10*3/uL Est GFR (CKD-EPI)AfAm 53.0 L (60.0-200.0) Est GFR (CKD-EPI)NonAf 45.7 L (60.0-200.0) BUN/Creatinine Ratio 21.45 H (12.00-20.00) Ratio Glucose 130 H (70-110) mg/dL POC Glucose (mg/dL) 142 H 159 H (75-99) mg/dL ALT 7 L (8-44) U/L Total Protein 4.6 L (6.2-8.2) g/dL Albumin 2.8 L (3.8-4.9) g/dL Albumin/Globulin Ratio 1.56 L (1.60-3.17) g/dL Assessment and Plan Assessment: Status-post operative fixation of left basicervical hip fracture with short intramedullary hip screw on 02/02/[address] Conroy. Post-operative day #3. History of right hip fracture status-post short intramedullary hip screw 1 month ago. Plan: - Patient may weight-bear as tolerated on the operative leg. Up with assistance, up with a walker. She may also weight-bear as tolerated on the right lower extremity. - Physical therapy for gait and balance training. - Pain management as needed. Delavan 5/325mg q6 hours PRN. - Resume Eliquis today for DVT prophylaxis. - 2 doses of post-operative antibiotics complete. - Anticipate discharge to rehab when medically cleared. Prior auth is currently still pending as well.
--- NOTE | 2021-02-05 15:00 | P.PN ---
Subjective Progress Note Date: 02/04/21 Progress note 02/03/2021 HISTORY OF PRESENT ILLNESS This is an 85-year-old female patient of mine with past medical history of coronary artery disease status post CABG in 2011 followed by myocardial infarction, chronic systolic heart failure, valvular heart disease in the form of severe aortic stenosis and moderate to severe tricuspid regurgitation and severe pulmonary hypertension, hypertension, hypertensive cardiovascular disease, hyperlipidemia, chronic kidney disease stage III, anemia of chronic disease, chronic gout diabetes mellitus type 2 insulin requiring, cervical stenosis, chronic back pain, generalized anxiety disorder. Patient was recently discharged from [facility] after she was admitted to the hospital for metabolic encephalopathy due to significant and severe hypoglycemia she had a full neurological workup including CT scan of the brain as well as CT angiography of the carotid artery and the [place], and she ended up discharge back to [facility] for physical therapy rehabilitation where she was starting with physical therapy with her after she sustained a left IT hip fracture that was treated about a month ago by orthopedic associate while she was at [facility] patient tried to set up on her own without any help and she fell down and landed in her left hip she sustained significant pain and injury recommended for the patient to have a stat x-rays of the left hip however the patient was in so much pain so she was sent to the emergency department at [facility] where she was found to have a left basilar neck fracture she was admitted and orthopedic surgery and were asked to see the patient for medical management and preoperative medical clearance she is scheduled to go for an IT I believe tomorrow morning. 02/02: Patient is laying down in bed in no apparent distress she underwent left hip intramedullary nailing, pain is controlled, continue with DVT prophylaxis as the patient is back on Eliquis 2.5 mg orally twice every day, continue incentive Stromberger, continue physical therapy evaluation, continue current pain management as outlined by orthopedic surgery. 02/03: Patient is sitting up in a recliner she is complaining of some pain in the left hip, she denies any chest pain, or shortness breath, she appears a bit pale today, she has no abdominal pain, nausea or vomiting, she seems to be tolerating her treatment very well, physical therapy evaluation is in progress, the plan is to transfer the patient back to [facility] within the next 2 days. 02/04: Patient is doing better today she denies any chest pain, or shortness breath, her pain is controlled, it's her birthday today she enjoyed her family a nd she is eating her lunch, she has no abdominal pain, she has not had a bowel movement, we'll start her on lactulose 20 g orally twice every day, patient likely will be able to be discharged to [facility] in 1 or 2 days REVIEW OF SYSTEMS Constitutional: No fever, no chills, no night sweats. No weight change. Noted weakness, reported fatigue reported lethargy. No daytime sleepiness. HEENT: No headache. No blurred vision or double vision, no loss of vision. No loss of Hearing, no ringing in the ears, no dizziness. No nasal drainage or congestion. No epistaxis. No sore throat. Lungs: No shortness of breath, cough, no sputum production. No wheezing. Cardiovascular: No chest pain, no lower extremity edema. No palpitations. No paroxysmal nocturnal dyspnea. No orthopnea. No lightheadedness or dizziness. No syncopal episodes. Abdominal: Reports no abdominal pain. no nausea, no vomiting. No diarrhea. No constipation. No bloody or tarry stools. Genitourinary: No dysuria, increased frequency, urgency. No urinary retention. Musculoskeletal: No myalgias. Reported muscle weakness, reported gait dysfunction, frequent falls. Positive for back pain. No neck pain, moderate left hip pain. Integumentary: Noted right hip surgical wound, right heel ulcer/wound, no lesions. No rash or pruritus. No unusual bruising. No change in hair or nails. Neurologic: No aphasia. No facial droop. No change in mentation. No head injury. No headache. No paralysis. No paresthesia. Psychiatric: positive for depression. positive for anxiety. No mood swings. Endocrine: Noted abnormal blood sugars. No weight change. No excessive sweating or thirst. No cold intolerance. PHYSICAL EXAMINATION Gen: This is this is an 85-year-old female. Patient is sitting up in her recliner appears to be comfortable and in no acute distress. Family members are at bedside. HEENT: Head is atraumatic, normocephalic. Pupils equal, round. Sclerae is anicteric. Oral mucous membranes are very dry. NECK: Supple. No JVP. Decreased carotid upstroke bilaterally. No lymphadenopathy. No thyromegaly. LUNGS: Decreased breath sounds at the bases. No wheezes or rhonchi. No intercostal retractions. No accessory muscle usage. HEART: Permanent pacemaker located in the left upper precordium, first heart sound is depressed, second heart sound is normal, there is systolic ejection murmur 3/6 located in the right upper sternal border didn't to the neck. ABDOMEN: Soft. Bowel sounds are present. No masses. No tenderness. EXTREMITIES: Positive for pedal edema. No calf tenderness. left lower extremity is shortened with external rotation. Dorsalis pedis palpable bilaterally. NEUROLOGICAL: Patient is awake, alert and oriented x2. Cranial nerves 2 through 12 are grossly intact. Muscle power 4 out of 5 in upper extremities and 3 out of 5 in left lower extremities ASSESSMENT AND PLAN 1. POD# 3 post IM nail for left basilar hip fracture, we will continue with current pain management, IS, and we will continue Eliquis 2.5 mg po bid for DVT prophylaxis. 3. Diabetes mellitus type 2 insulin requiring, uncontrolled with hyperglycemia. Hemoglobin A1c 9.6. Patient will be placed on NovoLog scale before meals and at bedtime, resume NovoLog 75/25 tomorrow morning at 15 units 2 times daily. 4. History of coronary artery disease status post CABG in 2011 followed by stenting. Continue carvedilol 6.25 mg orally twice every day as well as Lipitor 40 mg orally once every day. 5. Chronic systolic heart failure. Appears to be stable at this time. KVO 6. Valvular heart disease with severe aortic stenosis, moderate to severe tricuspid regurgitation and severe pulmonary hypertension. Continue patient on carvedilol 6.25 mg orally twice every day, continue hydralazine 100 mg orally 3 times every day, and doxazosin 4 mg orally once every day. 7. Hypertension, hypertensive cardiovascular disease. Continue carvedilol 6.25 mg orally twice every day, hydralazine 100 mg orally 3 times every day, and doxazosin 4 mg orally once every day 8 Hyperlipidemia. Continue Lipitor 40 mg orally once every day. 9. Chronic kidney disease stage III. Monitor the patient CMP. 10. Anemia of chronic disease. monitor the patient's CBC transfuse for hemoglobin less than 7 11. Chronic gout. Continue allopurinol 100 mg twice daily. 12. COVID-19 testing negative. DISCHARGE PLAN Return to [facility] to complete subacute rehab. Objective - Vital Signs Vital signs: Vital Signs Temp 98.3 F 02/04/21 02:00 Pulse 60 02/04/21 02:00 Resp 17 02/04/21 02:00 BP 157/54 02/04/21 02:00 Pulse Ox 100 02/04/21 02:00 Intake & Output 02/03/21 02/03/21 02/04/21 06:59 18:59 06:59 Intake Total 580 Output Total 200 300 Balance 380 -300 Intake: Other 580 Output: Urine 200 300 Other: Voiding Method Indwelling Catheter Indwelling Catheter Indwelling Catheter # Voids 2 # Bowel Movements 0 - Labs CBC & Chem 7: 02/05/21 05:20 02/05/21 05:20 Labs: Abnormal Lab Results - Last 24 Hours (Table) 02/03/21 02/03/21 02/03/21 Range/Units 07:28 11:15 16:29 POC Glucose (mg/dL) 193 H 193 H 173 H (75-99) mg/dL 02/03/21 Range/Units 20:23 POC Glucose (mg/dL) 144 H (75-99) mg/dL
[2021-02-05] MEDS ORDERED: bisacodyL 10 MG SUPP RECTAL STA (15:37)
--- NOTE | 2021-02-05 16:19 | P.PN ---
Subjective Progress Note Date: 02/05/21 Progress note 02/03/2021 HISTORY OF PRESENT ILLNESS This is an 85-year-old female patient of mine with past medical history of coronary artery disease status post CABG in 2011 followed by myocardial infarction, chronic systolic heart failure, valvular heart disease in the form of severe aortic stenosis and moderate to severe tricuspid regurgitation and severe pulmonary hypertension, hypertension, hypertensive cardiovascular disease, hyperlipidemia, chronic kidney disease stage III, anemia of chronic disease, chronic gout diabetes mellitus type 2 insulin requiring, cervical stenosis, chronic back pain, generalized anxiety disorder. Patient was recently discharged from [facility] after she was admitted to the hospital for metabolic encephalopathy due to significant and severe hypoglycemia she had a full neurological workup including CT scan of the brain as well as CT angiography of the carotid artery and the [place], and she ended up discharge back to [facility] for physical therapy rehabilitation where she was starting with physical therapy with her after she sustained a left IT hip fracture that was treated about a month ago by orthopedic associate while she was at [facility] patient tried to set up on her own without any help and she fell down and landed in her left hip she sustained significant pain and injury recommended for the patient to have a stat x-rays of the left hip however the patient was in so much pain so she was sent to the emergency department at [facility] where she was found to have a left basilar neck fracture she was admitted and orthopedic surgery and were asked to see the patient for medical management and preoperative medical clearance she is scheduled to go for an IT I believe tomorrow morning. 02/02: Patient is laying down in bed in no apparent distress she underwent left hip intramedullary nailing, pain is controlled, continue with DVT prophylaxis as the patient is back on Eliquis 2.5 mg orally twice every day, continue incentive Stromberger, continue physical therapy evaluation, continue current pain management as outlined by orthopedic surgery. 02/03: Patient is sitting up in a recliner she is complaining of some pain in the left hip, she denies any chest pain, or shortness breath, she appears a bit pale today, she has no abdominal pain, nausea or vomiting, she seems to be tolerating her treatment very well, physical therapy evaluation is in progress, the plan is to transfer the patient back to [facility] within the next 2 days. 02/04: Patient is doing better today she denies any chest pain, or shortness breath, her pain is controlled, it's her birthday today she enjoyed her family a nd she is eating her lunch, she has no abdominal pain, she has not had a bowel movement, we'll start her on lactulose 20 g orally twice every day, patient likely will be able to be discharged to [facility] in 1 or 2 days 02/05: Patient is sitting up in bed in no apparent distress, she denies any ches t pain or shortness breath, she did not have a good bowel movement, she continues to be on Eliquis 2.5 minute gram orally twice every day, her blood pressure is well controlled, patient will likely be discharged to [facility] in the next 1-2 days. REVIEW OF SYSTEMS Constitutional: No fever, no chills, no night sweats. No weight change. Noted weakness, reported fatigue reported lethargy. No daytime sleepiness. HEENT: No headache. No blurred vision or double vision, no loss of vision. No loss of Hearing, no ringing in the ears, no dizziness. No nasal drainage or co ngestion. No epistaxis. No sore throat. Lungs: No shortness of breath, cough, no sputum production. No wheezing. Cardiovascular: No chest pain, no lower extremity edema. No palpitations. No paroxysmal nocturnal dyspnea. No orthopnea. No lightheadedness or dizziness. No syncopal episodes. Abdominal: Reports no abdominal pain. no nausea, no vomiting. No diarrhea. No constipation. No bloody or tarry stools. Genitourinary: No dysuria, increased frequency, urgency. No urinary retention. Musculoskeletal: No myalgias. Reported muscle weakness, reported gait dysfunction, frequent falls. Positive for back pain. No neck pain, moderate left hip pain. Integumentary: Noted right hip surgical wound, right heel ulcer/wound, no lesions. No rash or pruritus. No unusual bruising. No change in hair or nails. Neurologic: No aphasia. No facial droop. No change in mentation. No head injury. No headache. No paralysis. No paresthesia. Psychiatric: positive for depression. positive for anxiety. No mood swings. Endocrine: Noted abnormal blood sugars. No weight change. No excessive sweating or thirst. No cold intolerance. PHYSICAL EXAMINATION Gen: This is this is an 85-year-old female. Patient is sitting up in her recliner appears to be comfortable and in no acute distress. Family members are at bedside. HEENT: Head is atraumatic, normocephalic. Pupils equal, round. Sclerae is anicteric. Oral mucous membranes are very dry. NECK: Supple. No JVP. Decreased carotid upstroke bilaterally. No lymphadenopathy. No thyromegaly. LUNGS: Decreased breath sounds at the bases. No wheezes or rhonchi. No intercostal retractions. No accessory muscle usage. HEART: Permanent pacemaker located in the left upper precordium, first heart hans nd is depressed, second heart sound is normal, there is systolic ejection murmur 3/6 located in the right upper sternal border didn't to the neck. ABDOMEN: Soft. Bowel sounds are present. No masses. No tenderness. EXTREMITIES: Positive for pedal edema. No calf tenderness. left lower extremity is shortened with external rotation. Dorsalis pedis palpable bilaterally. NEUROLOGICAL: Patient is awake, alert and oriented x2. Cranial nerves 2 through 12 are grossly intact. Muscle power 4 out of 5 in upper extremities and 3 out of 5 in left lower extremities ASSESSMENT AND PLAN 1. POD# 4 post IM nail for left basilar hip fracture, we will continue with current pain management, IS, and we will continue Eliquis 2.5 mg po bid for DVT prophylaxis. 3. Diabetes mellitus type 2 insulin requiring, uncontrolled with hyperglycemia. Hemoglobin A1c 9.6. Patient will be placed on NovoLog scale before meals and at bedtime, resume NovoLog 75/25 tomorrow morning at 15 units 2 times daily. 4. History of coronary artery disease status post CABG in 2011 followed by abhi sandoval. Continue carvedilol 6.25 mg orally twice every day as well as Lipitor 40 mg orally once every day. 5. Chronic systolic heart failure. Appears to be stable at this time. KVO 6. Valvular heart disease with severe aortic stenosis, moderate to severe tricuspid regurgitation and severe pulmonary hypertension. Continue patient on carvedilol 6.25 mg orally twice every day, continue hydralazine 100 mg orally 3 times every day, and doxazosin 4 mg orally once every day. 7. Hypertension, hypertensive cardiovascular disease. Continue carvedilol 6.25 mg orally twice every day, hydralazine 100 mg orally 3 times every day, and doxazosin 4 mg orally once every day 8 Hyperlipidemia. Continue Lipitor 40 mg orally once every day. 9. Chronic kidney disease stage III. Monitor the patient CMP. 10. Anemia of chronic disease. monitor the patient's CBC transfuse for hemoglobin less than 7 11. Chronic gout. Continue allopurinol 100 mg twice daily. 12. COVID-19 testing negative. 13. Constipation. Continue Senokot 2 tablet at bedtime, lactulose 20 g orally twice every day add milk of Magnesia with prune juice 1 DISCHARGE PLAN Return to [facility] to complete subacute rehab. Objective - Vital Signs Vital signs: Vital Signs Temp 98.2 F 02/05/21 14:42 Pulse 59 L 02/05/21 14:42 Resp 16 02/05/21 14:42 BP 152/54 02/05/21 14:42 Pulse Ox 91 L 02/05/21 14:42 Intake & Output 02/04/21 02/05/21 02/05/21 18:59 06:59 18:59 Intake Total 480 Output Total 250 475 Balance 230 -475 Intake: Oral 480 Output: Urine 250 475 Other: Voiding Method Indwelling Catheter Indwelling Catheter - Labs CBC & Chem 7: 02/05/21 05:20 02/05/21 05:20 Labs: Abnormal Lab Results - Last 24 Hours (Table) 02/04/21 02/04/21 02/05/21 Range/Units 16:38 20:53 05:20 RBC 2.38 L (4.10-5.20) X 10*6/uL Hgb 7.9 L (12.0-15.0) g/dL Hct 26.0 L (37.2-46.3) % MCV 109.2 H (80.0-97.0) fL MCH 33.2 H (27.0-32.0) pg MCHC 30.4 L (32.0-37.0) g/dL RDW 15.6 H (11.5-14.5) % Lymphocytes # 0.77 L (0.90-5.00) X 10*3/uL Est GFR (CKD-EPI)AfAm (60.0-200.0) Est GFR (CKD-EPI)NonAf (60.0-200.0) BUN/Creatinine Ratio (12.00-20.00) Ratio Glucose (70-110) mg/dL POC Glucose (mg/dL) 172 H 139 H (75-99) mg/dL ALT (8-44) U/L Total Protein (6.2-8.2) g/dL Albumin (3.8-4.9) g/dL Albumin/Globulin Ratio (1.60-3.17) g/dL 02/05/21 02/05/21 02/05/21 Range/Units 05:20 07:24 10:13 RBC (4.10-5.20) X 10*6/uL Hgb (12.0-15.0) g/dL Hct (37.2-46.3) % MCV (80.0-97.0) fL MCH (27.0-32.0) pg MCHC (32.0-37.0) g/dL RDW (11.5-14.5) % Lymphocytes # (0.90-5.00) X 10*3/uL Est GFR (CKD-EPI)AfAm 53.0 L (60.0-200.0) Est GFR (CKD-EPI)NonAf 45.7 L (60.0-200.0) BUN/Creatinine Ratio 21.45 H (12.00-20.00) Ratio Glucose 130 H (70-110) mg/dL POC Glucose (mg/dL) 142 H 159 H (75-99) mg/dL ALT 7 L (8-44) U/L Total Protein 4.6 L (6.2-8.2) g/dL Albumin 2.8 L (3.8-4.9) g/dL Albumin/Globulin Ratio 1.56 L (1.60-3.17) g/dL
[2021-02-05 16:33] LABS: Glucose,Whole Blood 161 mg/dL (75-99)
--- NOTE | 2021-02-05 17:10 | XR ---
EXAMINATION TYPE: XR chest 1V DATE OF EXAM: 02/05/2021 COMPARISON: 02/01/2021 HISTORY: Chest pain Short of breath TECHNIQUE: Single view FINDINGS: There is some mild pulmonary interstitial edema. There is some mild infiltrate and atelectasis left l tavo base. There is slight blunting left costophrenic angle. There are sternal wires. IMPRESSION: There is evidence for some minimal heart failure that is increased compared to last exam.
[2021-02-05 19:42] VITALS: PULSE 60
[2021-02-05 20:26] LABS: Glucose,Whole Blood 132 mg/dL (75-99)
[2021-02-05] MEDS ORDERED: FUROSEMIDE 10 MG/ML 4 ML VIAL IV SCH (21:00)
[2021-02-05] MEDS: ATORVASTATIN 80 MG TAB PO SCH (21:13)
[2021-02-06] MEDS: PANTOPRAZOLE 40 MG TABLET PO SCH (05:16)
[2021-02-06] MEDS: HYDROcodone/APAP 5-325MG 1 EACH TAB PO PRN ×2 (05:19→11:06)
[2021-02-06 07:08] LABS: Glucose,Whole Blood 147 mg/dL (75-99)
[2021-02-06] MEDS: APIXABAN 2.5 MG TABLET PO SCH (07:26)
[2021-02-06] MEDS: allopurinoL 100 MG TAB PO SCH (07:26)
[2021-02-06] MEDS: hydrALAZINE HCL 50 MG TAB PO SCH ×2 (07:26→11:06)
[2021-02-06] MEDS: FERROUS SULFATE 325 MG TAB PO SCH (07:26)
[2021-02-06] MEDS: carvediloL 6.25 MG TAB PO SCH (07:26)
[2021-02-06] MEDS: INSULN ASP PRT/INSULIN ASPART 100 UNIT/ML 10 ML VIAL SQ SCH (07:26)
[2021-02-06] MEDS: DOCUSATE 100 MG CAP PO SCH (07:26)
[2021-02-06] MEDS: DOXAZOSIN 4 MG TAB PO SCH (07:27)
[2021-02-06] MEDS: LACTULOSE 20 GM/30 ML CUP PO SCH (07:29)
[2021-02-06 07:50] VITALS: BP 170/56; RESP 16; TEMP 97.6
[2021-02-06] MEDS ORDERED: carvediloL 6.25 MG TAB PO STA (08:11)
[2021-02-06] MEDS ORDERED: FUROSEMIDE 40 MG TAB PO SCH (09:00)
--- NOTE | 2021-02-06 10:08 | P.DS ---
Providers Date of admission: 02/01/21 09:18 Expected date of discharge: 02/06/21 Attending physician: Fer Conroy Consults: 02/01/21 09:17 Consult Physician Routine Consulting Provider: Leela Bill Consult Reason/Comments: medicine consult Do you want consulting provider notified?: Yes Primary care physician: Leela Bill [facility] Course: This is an 86-year-old female who is admitted to [facility] on 02/01/21 after a ground-level fall and sustaining injury to the left hip. X-rays in the emergency department revealed a basicervical fracture of the left hip. She is admitted to our service for surgical intervention and care. Patient was taken to surgery for operative fixation of her left hip fracture with a short intramedullary hip screw on 02/02/[address] Conroy. Patient also has history of right hip fracture status post short intramedullary hip screw 1 month ago. The procedure was performed without complication or sequelae. The patient is doing fairly well postoperatively. Vital signs and labs are stable on postoperative day #4. Patient was examined bedside today. Dr. Bill is also bedside. Patient states the pain in her left hip is well controlled at this time. She was up with physical therapy yesterday per nursing, as a 2 person assist. nursing also states patient had a large bowel movement yesterday. Patient has no new complaints or concerns today. On examination, patient is laying in bed in no apparent distress. Patient is alert and orientated x3.On inspection of the left hip, there are healing incisions, with no active bleeding or drainage. Neurovascular status is intact throughout the left lower extremity with motor and sensation fully intact. Calf is soft and nontender. 2+ dorsalis pedis pulse and a brisk capillary refill is present. Compression cuffs in place bilaterally. Patient is discharged back to [facility] in good condition, Dr. Bill has cleared the patient to be discharged today. Patient will follow-up with Dr. Conroy in the office in 2 weeks. Please see med rec for accurate list of discharge medications. Patient Condition at Discharge: Fair Plan - Discharge Summary Discharge Rx Participant: No New Discharge Prescriptions: New Lactulose [Cephulac] 20 gm PO BID ml HYDROcodone/APAP 5-325MG [Holden 5-325] 1 each PO Q6HR PRN #12 tab PRN Reason: Pain Scale 1 To 5 Continue Allopurinol 100 mg PO BID@0800,1700 Atorvastatin [Lipitor] 80 mg PO HS@2100 Doxazosin [Cardura] 4 mg PO DAILY@0800 Nitroglycerin Sl Tabs [Nitrostat] 0.4 mg SL Q5M PRN PRN Reason: Chest Pain Apixaban [Eliquis] 2.5 mg PO BID@0800,1700 Na Phos,M-B/Na Phos,Di-Ba [Fleet Adult] 133 ml RECTAL DAILY PRN PRN Reason: Constipation Acetaminophen Tab [Tylenol] 650 mg PO Q4HR PRN tab PRN Reason: Fever And/ Or Pain Insuln Asp Prt/Insulin Aspart [NovoLOG MIX 70-30 VIAL] 15 unit SQ AC-BID ml Dapagliflozin Propanediol [Farxiga] 5 mg PO DAILY@0800 bisacodyL [Dulcolax] 10 mg RECTAL DAILY PRN PRN Reason: Constipation Docusate [Colace] 100 mg PO BID@0800,1700 Ferrous Sulfate [Iron (65 MG Elemental)] 325 mg PO DAILY@0800 Magnesium Hydroxide [Milk of Magnesia Concentrate] 7,200 mg PO Q48H PRN PRN Reason: Constipation Pantoprazole [Protonix] 40 mg PO DAILY@0600 hydrALAZINE HCL [Apresoline] 100 mg PO TID@0800,1200,1700 Changed carvediloL [Coreg] 12.5 mg PO BID@0800,1700 #0 Furosemide [Lasix] 40 mg PO BID #0 Discontinued Furosemide [Lasix] 20 mg PO DAILY@1400 PRN PRN Reason: X3 DAYS Discharge Medication List Allopurinol 100 mg PO BID@0800,1700 03/05/14 [History] Atorvastatin [Lipitor] 80 mg PO HS@2100 09/24/14 [History] Doxazosin [Cardura] 4 mg PO DAILY@0800 12/10/18 [History] Apixaban [Eliquis] 2.5 mg PO BID@0800,1700 01/01/21 [History] Dapagliflozin Propanediol [Farxiga] 5 mg PO DAILY@0800 01/01/21 [History] Nitroglycerin Sl Tabs [Nitrostat] 0.4 mg SL Q5M PRN 01/01/21 [History] Docusate [Colace] 100 mg PO BID@0800,1700 01/15/21 [History] Ferrous Sulfate [Iron (65 MG Elemental)] 325 mg PO DAILY@0800 01/15/21 [History] Magnesium Hydroxide [Milk of Magnesia Concentrate] 7,200 mg PO Q48H PRN 01/15/21 [History] Na Phos,M-B/Na Phos,Di-Ba [Fleet Adult] 133 ml RECTAL DAILY PRN 01/15/21 [History] Pantoprazole [Protonix] 40 mg PO DAILY@0600 01/15/21 [History] bisacodyL [Dulcolax] 10 mg RECTAL DAILY PRN 01/15/21 [History] Acetaminophen Tab [Tylenol] 650 mg PO Q4HR PRN tab 01/17/21 [Rx] Insuln Asp Prt/Insulin Aspart [NovoLOG MIX 70-30 VIAL] 15 unit SQ AC-BID ml 01/20/21 [Rx] hydrALAZINE HCL [Apresoline] 100 mg PO TID@0800,1200,1700 02/01/21 [History] Furosemide [Lasix] 40 mg PO BID #0 02/06/21 [Rx] HYDROcodone/APAP 5-325MG [Holden 5-325] 1 each PO Q6HR PRN #12 tab 02/06/21 [Rx] Lactulose [Cephulac] 20 gm PO BID ml 02/06/21 [Rx] carvediloL [Coreg] 12.5 mg PO BID@0800,1700 #0 02/06/21 [Rx] Follow up Appointment(s)/Referral(s): Leela Bill MD [Primary Care Provider] - 1 Week (at [facility]) Fer Conroy MD [Medical Doctor] - 2 Weeks Activity/Diet/Wound Care/Special Instructions: Weight bear as tolerated on operative leg. Up with assistance and a walker. Daily dressing changes to left hip with tegaderm, ABD pads, and tape. Pain management as needed. Resume Eliquis for DVT prophylaxis. Follow-up in the office on [address] Conroy. Call the office with any questions or concerns, Discharge Disposition: TRANSFER TO SNF/ECF
[2021-02-06 11:26] LABS: Basophils # (A) 0.02 X 10*3/uL (0.00-0.10); Basophils % (A) 0.3 %; Eosinophils # (A) 0.18 X 10*3/uL (0.04-0.35); Eosinophils % (A) 2.7 %; HCT 26.4 % (37.2-46.3); HGB 8.1 g/dL (12.0-15.0); Lymphocytes # (A) 0.92 X 10*3/uL (0.90-5.00); MCH 32.5 pg (27.0-32.0); MCHC 30.7 g/dL (32.0-37.0); Mean Platelet Volume 12.3 fL (9.5-12.2); Monocytes # (A) 0.82 X 10*3/uL (0.20-1.00); Monocytes % (A) 12.5 %; Neutrophils # (A) 4.58 X 10*3/uL (1.80-7.70); Neutrophils % (A) 69.9 %; Platelet Count 231 X 10*3/uL (140-440); RBC 2.49 X 10*6/uL (4.10-5.20); RDW 15.2 % (11.5-14.5); WBC 6.56 X 10*3/uL (4.50-10.00)
[2021-02-06 11:28] LABS: Glucose,Whole Blood 172 mg/dL (75-99)
[2021-02-06 12:04] LABS: African American GFR (CKD) 49.2 (60.0-200.0); Albumin 2.6 g/dL (3.8-4.9); Albumin/Globulin Ratio 1.44 (1.60-3.17); Anion Gap 10.3 mmol/L (4.00-12.00); Blood Urea Nitrogen 23.4 mg/dL (9.0-27.0); Calcium 8.8 mg/dL (8.7-10.3); Carbon Dioxide 21.9 mmol/L (21.6-31.8); Globulin 1.8 g/dL (1.6-3.3); Non-African American GFR(CKD) 42.5 (60.0-200.0); Potassium 4.1 mmol/L (3.5-5.5); Total Bilirubin 0.6 mg/dL (0.30-1.20); Total Protein 4.5 g/dL (6.2-8.2)
[2021-02-06] MEDS ORDERED: carvediloL 12.5 MG TAB PO SCH (17:30)
== END 2021-02-06 11:53 | DRG 481 ==
LOC: EC 07:52 → 4SSUR 09:18
PROVIDERS: ADMIT Orthopaedic Surgery; ATTEND Orthopaedic Surgery
PROC: 0QS736Z Reposition Left Upper Femur with Intramedullary Internal Fixation Device, Percutaneous Approach (ICD-10-PCS; principal; 2021-02-02 14:00)
DX: S72.042A Displaced fracture of base of neck of left femur, initial encounter for closed fracture (principal); I13.0 Hypertensive heart and chronic kidney disease with heart failure and stage 1 through stage 4 chronic kidney disease, or unspecified chronic kidney disease; I50.22 Chronic systolic (congestive) heart failure; W18.30XA Fall on same level, unspecified, initial encounter; Z91.81 History of falling; S72.141D Displaced intertrochanteric fracture of right femur, subsequent encounter for closed fracture with routine healing; N18.30 Chronic kidney disease, stage 3 unspecified; R29.6 Repeated falls; E11.22 Type 2 diabetes mellitus with diabetic chronic kidney disease; D63.1 Anemia in chronic kidney disease; Z96.41 Presence of insulin pump (external) (internal); E11.65 Type 2 diabetes mellitus with hyperglycemia; E78.5 Hyperlipidemia, unspecified; F41.1 Generalized anxiety disorder; I08.3 Combined rheumatic disorders of mitral, aortic and tricuspid valves; I25.10 Atherosclerotic heart disease of native coronary artery without angina pectoris; I25.2 Old myocardial infarction; I27.29 Other secondary pulmonary hypertension; M54.9 Dorsalgia, unspecified; K59.00 Constipation, unspecified; G89.29 Other chronic pain; M1A.9XX0 Chronic gout, unspecified, without tophus (tophi); R26.9 Unspecified abnormalities of gait and mobility; M48.02 Spinal stenosis, cervical region; M81.0 Age-related osteoporosis without current pathological fracture; Z20.822 Contact with and (suspected) exposure to COVID-19; Z79.01 Long term (current) use of anticoagulants; Z79.4 Long term (current) use of insulin; Z79.84 Long term (current) use of oral hypoglycemic drugs; Z79.899 Other long term (current) drug therapy; Z82.0 Family history of epilepsy and other diseases of the nervous system; Z82.49 Family history of ischemic heart disease and other diseases of the circulatory system; Z83.3 Family history of diabetes mellitus; Z90.710 Acquired absence of both cervix and uterus; Z95.1 Presence of aortocoronary bypass graft; Z95.5 Presence of coronary angioplasty implant and graft; Z88.5 Allergy status to narcotic agent; Z88.0 Allergy status to penicillin; Z88.8 Allergy status to other drugs, medicaments and biological substances
CPT/HCPCS: 36415; 70450; 71045; 72125; 73502; 80048; 80053; 85025; 85610; 85730; 87635; 93005; 99285

== ENCOUNTER → 2021-03-11 | Outpatient (CLI) | payer MEDICARE ==
--- NOTE | 2021-03-12 12:16 | P.ARTDOP ---
Arterial Doppler LOWER EXTREMITY ARTERIAL DOPPLER: DATE OF SERVICE: 03/11/2021 Reason for study: Diabetic ulcer right heel. Doppler waveforms: Multiphasic at both femoral and popliteal and atypical below. Pulse volume recording: []. Pressure gradients: Cannot occlude ankles or toes. Ankle-brachial indices: Cannot occlude ankles or toes. 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 Clinical correlation recommended. Consider vascular surgical assessment..
== END | disposition home or self-care (01) ==
LOC: RADUSWWP 13:43
PROVIDERS: ATTEND Family Medicine
DX: L89.613 Pressure ulcer of right heel, stage 3 (principal); M79.661 Pain in right lower leg
CPT/HCPCS: 93922